=== PATIENT | female | born 1965 | race Caucasian/White ===

== ENCOUNTER 2020-02-05 09:14 | Emergency (ER) | payer OTHER, SELFPAY ==
[2020-02-05 09:15] VITALS: BP 133/53; PULSE 76; RESP 17; TEMP 36.5; O2SAT 98; BMI 27.3
--- NOTE | 2020-02-05 09:39 | CT_ITS ---
STUDY: CT ABDOMEN AND PELVIS WITH CONTRAST REASON FOR EXAM: Female, 54 years old. RT SIDE ABDOMEN PAIN, HX APPENDECTOMY RADIATION DOSAGE (If Supplied By Facility): CTDIvol = ( 12.61 ) mGy, DLP = ( 780.43 ) mGycm TECHNIQUE: Transaxial images were obtained from the dome of the diaphragm to the symphysis pubis without oral contrast. IV 100mL Isovue-300 was administered. Sagittal and coronal images were reconstructed. Individualized dose optimization techniques were used for this CT. COMPARISON: None. FINDINGS: The visualized lung bases are unremarkable. The visualized portions of the heart are within normal limits. Liver is unremarkable aside from scattered simple cysts. Normal gallbladder and extrahepatic biliary system. Normal spleen. Normal pancreas. Normal bilateral adrenal glands. There is a horseshoe kidney. Each half of the kidney shows nonobstructing nephrolithiasis largest on the right measures 3 mm, largest on the left measures 2 mm. The renal pelves are dilated as are both ureters along their course but there is no obstructing stone stricture or mass lesion noted. Normal visualized stomach. Normal small intestine. There are a few scattered colonic diverticula without CT evidence of acute diverticulitis. There are surgical clips in the region of the appendix consistent with a prior appendectomy. Normal abdominal aorta. Normal inferior vena cava. Normal retroperitoneum. Normal urinary bladder. Normal visualized uterus. No suspicious adnexal mass or free fluid Normal abdominal wall. There are diffuse degenerative changes of the visualized lumbar spine, and pelvis. CT/Abdomen/Pelvis W IV Cont ONLY IMPRESSION: There is a horseshoe kidney. There are nonobstructing stones in the lower poles of each half of the kidney. The UPJs and ureters are mildly dilated but there is no obstructing stone stricture or mass lesion noted. Normal appearing bladder No suspicious solid organ abnormality, scattered simple hepatic cysts need no specific follow-up Scattered colonic diverticulosis Uterus is still present, the endometrium cannot be accurately evaluated with CT Electronically Signed: Kenneth Nash MD at 10:41 EDT , Service support ,
--- NOTE | 2020-02-05 09:42 | ED.DCSUM_ITS ---
History of Present Illness Chief Complaint: Abd Pain Informant: Patient - Abdominal Pain/Flank Pain Context: Gradual Onset Timing: Continuous Quality: Sharp Location: RUQ, Right Flank Worsened by: Movement Relieved by: Nothing - Nausea/Vomiting/Emesis GI Symptom: Nausea Onset: Today - Diarrhea/Melena/Hematochezia GI Symptom: - - 4 BM today, formed. Negative for: Diarrhea, Melena, Hematochezia Onset: Today Associated Symptoms: Negative for: Dysuria, Frequency, Hematuria, Urgency Narrative: Patient is a 54-year-old female with remote history of appendectomy and ovarian cyst presenting with right-sided abdominal pain. Patient states a month ago she had 1 day of epigastric abdominal pain that seem to radiate down to her abdomen. On Wednesday, 2 days ago she states the same pain returned. She states that she has had decreased appetite because nothing tastes good. The pain was intermittent for the last 2 days but then starting last night it became constant. She describes as very sharp. It is in her right upper quadrant area and seems to radiate down. She states when she was driving here the pain was much worse when she hit bumps on the road or when she tries to move. She developed nausea this morning but no vomiting. She is not having diarrhea or constipation. She denies any fever or chills. She does not take any medications [id number] for her symptoms. Patient recent injuries or trauma. Her only medications are vitamins and counter weight loss supplements. Patient denies any associated chest pain, shortness of breath or difficulty breathing. She denies any urinary or vaginal symptoms. No other complaints at this time. Past Medical History - Allergies and Home Meds Allergies/Adverse Reactions: Allergies No Known Allergies Allergy (Verified 02/05/20 09:14) Primary Care Physician: Jeri Ann MD [Primary Care Provider] - Alea Garcia MD [STAFF PHYSICIAN] - Past Medical History: - - Ovarian cyst, history of depression Surgical History: appendectomy Lives: Spouse/ Significant Other Smoking Status: Former smoker Alcohol: None Drugs: None Review of Systems General: Denies: Chills, Fever, Sweats Eyes: Denies: Visual changes - bilaterally, Diplopia ENT: Denies: Rhinorrhea, Sore throat Cardiovascular: Denies: Chest pain, Palpitations Respiratory: Denies: Dyspnea, Cough, Dyspnea on exertion Gastrointestinal: Reports: Abdominal pain, Nausea. Denies: Vomiting, Diarrhea, Melena, Hematochezia Genitourinary: Denies: Dysuria, Hematuria, Frequency Musculoskeletal: Denies: Back pain, Extremity Pain Skin: Denies: Rash, Wounds Neurological: Denies: Headache, Weakness, Numbness Physical Exam Vital Signs/Narrative: Vital Signs Temp Pulse Resp BP Pulse Ox 02/05/20 09:15 97.7 F L 76 17 133/53 H 98 Inital Vital Signs reviewed: Yes General: Well nourished, Well developed, No Acute Distress, - - Tearful Head: Normocephalic, Atraumatic Eyes: Perrl, EOMI ENT: Moist mucous membranes, No rhinorrhea Neck: Supple, Nontender, No JVD Cardiovascular: Regular rate, Regular rhythm, No murmurs Respiratory: No distress, CTA bilaterally, Chest nontender Abdomen: Soft, Nondistended, Normal bowel sounds, Tender - Tenderness in the right upper quadrant and right lower quadrant with palpation, Gonzales's sign. Negative for: Guarding, Rebound tenderness, Pulsatile mass, Ventral hernia, Umbilical hernia Back: Nontender, Normal Inspection. Negative for: CVA tenderness Extremities: Nontender, No edema Skin: Normal color, No rash Neurological: Alert, Oriented x3, Cranial nerves II-XII grossly intact, Normal Strength, Normal Sensation Psychological: Normal affect, Normal Mood Diagnostic/Tx/Re-eval Clinical Impression(s) from Imaging Studies Abdomen/Pelvis CT 02/05/20 09:39 IMPRESSION: There is a horseshoe kidney. There are nonobstructing stones in the lower poles of each half of the kidney. The UPJs and ureters are mildly dilated but there is no obstructing stone stricture or mass lesion noted. Normal appearing bladder No suspicious solid organ abnormality, scattered simple hepatic cysts need no specific follow-up Scattered colonic diverticulosis Uterus is still present, the endometrium cannot be accurately evaluated with CT Electronically Signed: Kenneth Nash MD at 10:41 EDT , Service support , Transvaginal US 02/05/20 11:20 IMPRESSION: No suspicious sonographic findings, neither ovary visualized due to bowel gas. Electronically Signed: Kenneth Nash MD at 13:36 EDT , Service support , Laboratory Data 02/05/20 02/05/20 02/05/20 09:27 09:27 09:55 WBC 6.1 RBC 4.81 Hgb 14.4 Hct 43.2 MCV 89.8 MCH 29.9 MCHC 33.3 RDW Std Deviation 39.5 RDW Coeff of Marc 11.9 Plt Count 218 MPV 10.2 Immature Gran % (Auto) 0.300 Neut % (Auto) 65.4 Lymph % (Auto) 23.8 [place] % (Auto) 8.2 Eos % (Auto) 1.3 Baso % (Auto) 1.0 Absolute Neuts (auto) 4.0 Absolute Lymphs (auto) 1.45 Nucleated RBC % 0 Sodium 140 Potassium 3.9 Chloride 105 Carbon Dioxide 29.0 Anion Gap 6 BUN 14 Creatinine 0.98 Estim Creat Clear Calc 65.30 Est GFR (MDRD) Af Amer 76 Est GFR (MDRD) Non-Af 63 BUN/Creatinine Ratio 14.2 Glucose 99 Lactic Acid 1.3 Calcium 9.2 Total Bilirubin 0.70 AST 15 ALT 22 Alkaline Phosphatase 102 Troponin I < 0.015 Total Protein 7.7 Albumin 4.2 Globulin 3.5 Albumin/Globulin Ratio 1.2 Lipase 180 Urine Color Urine Clarity Urine pH Ur Specific [place] Urine Protein Urine Glucose (UA) Urine Ketones Urine Occult Blood Urine Nitrite Urine Bilirubin Urine Urobilinogen Ur Leukocyte Esterase Urine RBC Urine WBC Ur Squamous Epith Cells Urine Bacteria Urine Mucus Urine Test 02/05/20 02/05/20 10:30 10:30 WBC RBC Hgb Hct MCV MCH MCHC RDW Std Deviation RDW Coeff of Marc Plt Count MPV Immature Gran % (Auto) Neut % (Auto) Lymph % (Auto) [place] % (Auto) Eos % (Auto) Baso % (Auto) Absolute Neuts (auto) Absolute Lymphs (auto) Nucleated RBC % Sodium Potassium Chloride Carbon Dioxide Anion Gap BUN Creatinine Estim Creat Clear Calc Est GFR (MDRD) Af Amer Est GFR (MDRD) Non-Af BUN/Creatinine Ratio Glucose Lactic Acid Calcium Total Bilirubin AST ALT Alkaline Phosphatase Troponin I Total Protein Albumin Globulin Albumin/Globulin Ratio Lipase Urine Color Yellow Urine Clarity Sl. Cloudy Urine pH 6.5 Ur Specific [place] 1.010 Urine Protein Negative Urine Glucose (UA) Normal Urine Ketones Negative Urine Occult Blood Negative Urine Nitrite Negative Urine Bilirubin Negative Urine Urobilinogen Normal Ur Leukocyte Esterase Negative Urine RBC 0 SEEN Urine WBC 0 SEEN Ur Squamous Epith Cells 5-10 SEEN Urine Bacteria RARE Urine Mucus 0 SEEN Urine Test Negative - Medical Decision Making Patient is a 54-year-old female presenting with 3 days of right-sided abdominal pain. Pain is worse with movement. She has associated nausea but no diarrhea or vomiting. Patient did have more frequent bowel movements today but states they were otherwise normal. She has similar episode 1 month ago but only lasted for day so she does not have it evaluated. Patient is not tried any medications for her pain prior to arrival. Her abdomen is significantly tender on the right side but diffusely. She has pain in her right lower quadrant as well as has a Gonzales sign. I did obtain a lactate because of the amount of tenderness she was having but this was normal. Her CBC and CMP as well as lipase were also normal. No signs of infection on urinalysis. CT the abdomen pelvis did not show any acute intra-abdominal pathology to explain her pain. She was also having lower abdominal pain I did also obtain pelvic ultrasound which did not show any acute pathology. Patient had 2 doses of morphine and a dose of Toradol for pain control in the emergency room. She is hemodynamically stable throughout her stay. On reevaluation patient is feeling better but is concerned as a cause of her pain has not been found. Patient will refer to surgery for outpatient follow-up because of her pain. She is counseled that should her pain worsen or change she should return to the emergency room for repeat evaluation. She verbalizes agreement understand this plan. She is discharged home with a course of Motrin. Patient is counseled that she will not receive opioids as I do not have a clear cause of her pain at discharge. She verbalizes agreement underst and this plan. She is given a work note for today and tomorrow per her request. ED Disposition - Plan for ED Patient: Disposition: Home or Assisted Living Diagnosis: Abdominal pain Instructions: ED Abdominal Pain Unkn Cause Fem Prescriptions: Ibuprofen [Motrin] 600 mg PO Q6H PRN PRN #20 tab PRN Reason: Pain Score 1-10/10 Prescription Printed Referrals: Jeri Ann MD [Primary Care Provider] - Alea Garcia MD [STAFF PHYSICIAN] -
[2020-02-05 09:46] LABS: Absolute Lymphocyte Count 1.45 X10^3/uL (0.83-4.51); Basophil# 0.06 X10^3/uL; Eosinophil# 0.08 X10^3/uL; Eosinophils% 1.3 % (0-5); Hematocrit 43.2 % (37-47); Hemoglobin 14.4 g/dL (12.0-15.0); Lymphocyte # 1.45 X10^3/ul (4.0); Lymphocyte % 23.8 % (19-41); Mean Corp Hgb Conc 33.3 g/dL (32-36); Mean Corpuscular Hgb 29.9 pg (27.0-32.0); Mean Corpuscular Volume 89.8 fL (81-99); Mean Platelet Vol. 10.2 fl (6.2-12.0); Monocyte% 8.2 % (0-10); NRBC Flagged by Analyzer 0 % (0-5); Neutrophil # 3.98 X10^3/uL (2.7-7.7); Neutrophil % 65.4 % (47-70); Platelet Count 218 K/mm3 (150-450); RBC Distribution Width CV 11.9 % (11.6-14.6); RBC Distribution Width SD 39.5 fl (35.1-43.9); Red Blood Count 4.81 M/mm3 (4.2-5.4); White Blood Count 6.1 K/mm3 (4.4-11.0)
[2020-02-05] MEDS: Ondansetron 4 MG/2 ML Vial IV (09:58)
[2020-02-05] MEDS: Morphine 4 MG/ML Syringe IV ×2 (09:59→11:49)
[2020-02-05] MEDS: 0.9% Normal Saline 1,000 ML 1000 ML IV (09:59)
[2020-02-05 10:02] LABS: ALB/GLOB Ratio 1.2 RATIO (0.9-2.4); AST(SGOT) 15 U/L (15-37); Alanine Aminotransfer ALT/SGPT 22 U/L (13-56); Albumin, Serum 4.2 g/dL (3.2-5.0); Alkaline Phosphatase 102 U/L (45-117); Anion Gap 6 (5-15); BUN 14 mg/dL (7-18); BUN/Creat Ratio 14.2 RATIO (10-20); Calcium,Total 9.2 mg/dL (8.5-10.1); Chloride 105 mmol/L (98-107); Creatinine, Serum 0.98 mg/dL (0.55-1.02); EST Glomerular Filtration Rate 63 mL/min (>60); Est Glom Filt Rate - Afr Amer 76 mL/min (>60); Globulin 3.5 g/dL (2.2-4.2); Glucose 99 mg/dL (74-106); Lipase 180 U/L (73-393); Potassium 3.9 mmol/L (3.5-5.1); Protein, Total 7.7 g/dL (6.4-8.2); Sodium Level 140 mmol/L (136-145)
[2020-02-05 10:42] LABS: Mucous, Urine 0 SEEN /hpf (<or=2+); Red Blood Cells-Urine 0 SEEN /hpf (0-5); White Blood Cells 0 SEEN /hpf (0-5)
[2020-02-05 10:43] LABS: Color, Urine Yellow (Yellow); Glucose, Dipstick Normal (Normal); Ketone-Dipstick Negative (Negative); Leukocyte Esterase-Dipstick Negative /ul (Negative); Nitrite-Dipstick Negative (Negative); Occult Blood-Urine Negative /ul (Negative); Protein-Dipstick Negative (Negative); Urine Bilirubin Dipstick Negative (Negative); Urine Clarity Sl. Cloudy (Clear); Urine Urobilinogen Normal (Normal); Urine pH 6.5 (5.0 - 8.0)
[2020-02-05 10:44] LABS: Internal QC Validated? YES +Cl - CLEAR BKGD; Pregnancy, Urine Negative Negative
[2020-02-05] MEDS: Ketorolac 15 MG/ML Vial IV (10:46)
[2020-02-05 10:52] LABS: Bacteria RARE /hpf (None Seen); Squamous Epithelial Cells - UA 5-10 SEEN /hpf (5-10)
[2020-02-05 10:57] LABS: Lactic Acid 1.3 mmol/L (0.4-1.9)
--- NOTE | 2020-02-05 11:20 | US_ITS ---
STUDY: ULTRASOUND OF THE FEMALE PELVIS - COMPLETE REASON FOR EXAM: Female, 54 years old. RLQ PAIN LMP: Unknown. TECHNIQUE: Transabdominal and Transvaginal TECHNICAL QUALITY: Adequate. COMPARISON: None. FINDINGS: The uterus is anteverted and is in a midline position. The uterus measures 8.8 x 5.2 x 3.9 cm. Normal uterine cervix. The endometrium measures 4 mm in thickness, and is hyperechoic. There is no demonstrated endometrial mass. There is no demonstrated myometrial mass. I.U.D. - The patient does not have an I.U.D. Neither ovary visualized. There is no fluid in the cul-de-sac. The bladder is sonographically normal US/Transvaginal Non- IMPRESSION: No suspicious sonographic findings, neither ovary visualized due to bowel gas. Electronically Signed: Kenneth Nash MD at 13:36 EDT , Service support ,
[2020-02-05 12:22] VITALS: BP 128/72; PULSE 73; RESP 16; O2SAT 100
[2020-02-05 14:29] VITALS: BP 119/75; PULSE 56; RESP 18; O2SAT 100
== END 2020-02-05 14:30 | disposition home or self-care (01) ==
PROVIDERS: Emergency Provider Emergency Medicine; PCP Internal Medicine
DX: R10.11 Right upper quadrant pain (principal); R11.0 Nausea; Z79.899 Other long term (current) drug therapy; Z87.891 Personal history of nicotine dependence
CPT/HCPCS: 74177; 76830; 80053; 81001; 81025; 83605; 83690; 84484; 85025; 96361; 96374; 96375; 96376; 99284; J7030; Q9967; A4216; J2405

== ENCOUNTER 2023-02-15 14:48 | Emergency (ER) | payer BC, OTHER, SELFPAY ==
[2023-02-15 14:49] VITALS: BP 124/65; PULSE 64; RESP 16; TEMP 36.1; O2SAT 100; BMI 27.1
--- NOTE | 2023-02-15 14:59 | EX.ED.DYSGE1 ---
HPI History of Present Illness Chief Complaint: Headache PFSH PFSH Home Medications ibuprofen 600 mg tablet 600 mg PO Q6H PRN PRN Pain Score 1-10/10 #20 tabs 02/05/20 [Rx Last Taken Unknown] doxycycline hyclate 100 mg capsule 100 mg PO BID 7 days #14 caps 02/15/23 [Rx Last Taken Unknown] metoclopramide HCl 5 mg tablet (Reglan) 5 mg PO Q8H PRN PRN nausea and vomiting 7 days #20 tabs 02/15/23 [Rx Last Taken Unknown] Allergy/AdvReac Type Severity Reaction Status Date / Time No Known Allergies Allergy Verified 02/05/20 09:14 Social History Smoking Status: Former smoker EXAM Physical Exam Const Vital Signs: 02/15/23 14:49 Temperature 97.0 F L Temperature Source Temporal Pulse Rate 64 Respiratory Rate 16 Blood Pressure 124/65 H Blood Pressure Mean 84 Pulse Ox 100 Oxygen Delivery Method Room Air MDM MDM MDM Narrative Medical decision making narrative: HISTORY OF PRESENT ILLNESS: 57-year-old female here with cute onset of headache approximately 6 hours ago. States headache began suddenly is located around forehead denies any recent illness. Denies family history of brain aneurysms. Denies any focal weakness. Denies any neck pain or chest pain. Patient denies sudden onset or thunderclap headache, denies maximal intensity within 1 minute, vomiting, neck pain or stiffness, changes in vision, fever, history malignancy, syncope, seizures. In addition to this patient also endorses redness over the left lower extremity that started as multiple excoriations and now has been a confluent area redness to the left lower leg. She also states he is concerned about Lyme disease. REVIEW OF SYSTEMS: Pertinent positives: Headache Pertinent negatives: Focal weakness, loss sensation, numbness, tingling, neck stiffness PHYSICAL EXAM: Nursing triage notes reviewed, Vital signs reviewed Constitutional: please see mdm HENT: MMM Eyes: Pupils equal round and reactive to light, Extraocular muscles intact Neck: No stridor, no JVD, full neck ROM Lungs: Clear to auscultation, No wheezing or rales. No increased work of breathing, no conversational dyspnea, no accessory muscle use, no nasal flaring. No respiratory distress noted Heart: Regular rate and rhythm, No murmurs, No rubs and No gallops, 2+ distal pulses (radial, femoral, posterior tibial) in all extremities Abdomen: Soft, there is no tenderness, rigidity, rebound or guarding, no obvious peritoneal signs, no palpable pulsatile abdominal masses, no auscultated abdominal bruit : No CVAT Extremities: No edema Neuro: Alert and oriented x3, neuro exam at baseline, cranial nerves II through XII are intact. No pain with extraocular muscle movement. There is negative test of skew. Normal speech. 5 of 5 strength in upper and lower extremities in flexion extension. Intact sensation to light touch in upper and lower extremity dermatomes. No truncal or extremity ataxia. No dysdiadochokinesia. Normal gait. 2+ reflexes. No meningeal signs. Negative Babinski. NIH of 0 Skin: There is nonspecific confluent erythema on the left anterior tibia, no crepitus bullae fluctuance induration or purulence noted MEDICAL DECISION MAKING: Chief Complaint: Headache External records reviewed: No recent advanced imaging of the brain Factors affecting care: none Social determinants of health: none History obtained from others: none Consults: none ALL IMAGES (IF OBTAINED) HAVE BEEN PERSONALLY REVIEWED AND INTERPRETED BY MYSELF. MDM Narrative: The patient was hemodynamically stable, afebrile and nontoxic-appearing. Exam I considered the following differential diagnosis: Subarachnoid hemorrhage, epidural hematoma, ICH, meningitis, carotid artery dissection, primary headache (cluster, tension, migraine) I suspect patient having a primary headache. Given her age I will do a screening CT of the brain to rule out any obvious bleeding or mass. CT scan was negative. Repeat neurologic exam was intact and benign. Patient was given doxycycline for empiric cellulitis treatment. She is given 20 mg single dose for Lyme prophylaxis given patient concerned specifically about Lyme disease. The patient looks great and is in no significant objective discomfort currently. The patient's headache is non-specific. Exam is unremarkable. The patient is in no distress and the patient?s neurological exam is non-focal, neck is supple and without meningismus. The headache is not consistent with meningitis or infection, nor is it consistent with intracranial bleed (SAH etc.), carotid dissection, nor mass by history and examination. Medication and outpatient follow-up was instructed. The patient was instructed to return as needed or if symptoms changed or worsened, fever developed or inability to tolerate fluids. The patient agreed with plan. The patient and/or family, caregivers express understanding. The patient and/or family, caregivers agrees with the plan. Total critical care time today provided was at least 0 minutes. This excludes separately billable procedures. Critical care time (if documented) is secondary to the patient having high probability of clinically significant/life threatening deterioration in the patient's condition which required my urgent intervention. Shared decision making: I will have a discussion with the patient and or visitors regarding risk/benefits of further testing or admission. They will be made aware of of the risk/benefits inherent in this decision they will be given the opportunity to voice understanding. Radiography Diagnostic Testing: Clinical Impression(s) from Imaging Studies Brain CT 02/15/23 15:11 IMPRESSION: Negative head/brain CT without intravenous contrast. Electronically Signed: Otto Shepard MD at 16:19 EDT Reading Location ID and State: [facility] / [place] , Service support , Discharge Plan Triage Chief Complaint: Headache ED Provider: Derrick Vazquez Dx/Rx/DC Orders Clinical Impression: Cellulitis, Headache Instructions: Cellulitis Dc, ED Headache Unspecified Prescriptions: New doxycycline hyclate 100 mg capsule 100 mg PO BID 7 Days Qty: 14 0RF metoclopramide HCl [Reglan] 5 mg tablet 5 mg PO Q8H PRN PRN (Reason: nausea and vomiting) 7 Days Qty: 20 0RF No Action ibuprofen 600 MG tablet 600 mg PO Q6H PRN PRN (Reason: Pain Score 1-10/10) Qty: 20 0RF Stand Alone Forms: ED Work / School Excuse Primary Care Provider: Jeri Ann Referrals: Jeri Ann MD [Primary Care Provider] - Activity Restrictions/Additional Instructions: Thank you for trusting us with your care today! Please take Tylenol (2 pills, 650 mg), ibuprofen (2 pills, 400 mg) every 6 hours as needed for pain and fever control. Please take doxycycline for infection prophylaxis. We gave you a 200 mg one-time prophylactic dose of doxycycline here in emergency department which is also the CDC recommended coverage for Lyme disease empiric treatment. Please continue take doxycycline as prescribed Please return to the emergency department if your symptoms change or worsen. Specifically if your headache worsens, it caused you to pass out, you lose vision, you have loss of sensation, loss of movement in your arms or legs or if you develop severe neck stiffness. Please take Reglan as prescribed for breakthrough headache and nausea. Please follow with your primary care physician for further outpatient evaluation and management. Disposition Disposition: Home, Self Care Discharge Date/Time: 02/15/23 16:42
--- NOTE | 2023-02-15 15:11 | CT_ITS ---
EXAM: CT HEAD WITHOUT INTRAVENOUS CONTRAST CLINICAL INDICATION: Pain TECHNIQUE: Multiple axial images were obtained of the head without intravenous contrast. This CT exam was performed using one or more of the following dose reduction techniques: automated exposure control, adjustment of the mA and/or kV according to patient size, and/or use of iterative reconstruction technique. RADIATION DOSE: CTDIvol = 44.99 mGy, DLP = 796.11 mGy-cm COMPARISON: No relevant prior studies available. FINDINGS: BRAIN AND EXTRA-AXIAL SPACES: Unremarkable. No intra- or extra-axial hemorrhage. No evidence of acute infarct. No intracranial mass or mass effect. There is preservation of the paris/white matter interface. Posterior fossa structures are unremarkable. Ventricles are appropriate for age. No hydrocephalus. Basal cisterns are patent. BONES/JOINTS: Unremarkable. No discrete lytic or blastic abnormalities. SINUSES: Unremarkable as visualized. Clear. MASTOID AIR CELLS: Unremarkable. Clear. ORBITS: Visualized globes, extraocular muscles, optic nerves and retrobulbar fat appear unremarkable. CT/Brain/Head without Contrast IMPRESSION: Negative head/brain CT without intravenous contrast. Electronically Signed: Otto Shepard MD at 16:19 EDT ,
[2023-02-15] MEDS: 0.9% Normal Saline 1,000 ML 999 ML IV (15:32)
[2023-02-15] MEDS: Acetaminophen 325 MG Tablet PO (15:32)
[2023-02-15] MEDS: Metoclopramide 10 MG/2 ML Vial 5 MG IV (15:32)
[2023-02-15] MEDS: Doxycycline 100 MG CAPSULE 200 MG PO (16:17)
== END 2023-02-15 16:42 | disposition home or self-care (01) ==
PROVIDERS: Emergency Provider Emergency Medicine; PCP Internal Medicine; Visit Provider Emergency Medicine
DX: R51.9 Headache, unspecified (principal); L03.116 Cellulitis of left lower limb; Z87.891 Personal history of nicotine dependence
CPT/HCPCS: 70450; 96361; 96374; 99281; J7030; A4216

== ENCOUNTER → 2024-10-04 | Outpatient (CLI) | payer OTHER, SELFPAY ==
--- NOTE | 2024-10-04 13:04 | NM_ITS ---
PROCEDURE: GASTRIC EMPTYING STUDY REASON FOR EXAM: Abdominal bloating. TECHNIQUE: RADIOPHARMACEUTICAL: 1.1 millicuries of technetium labeled sulfur colloid mixed with oatmeal. The patient ingested the radiopharmaceutical. COMPARISON: CORRELATION WITH EXISTING RELEVANT IMAGING STUDIES (i.e. x-ray, MRI, CT, etc.): No existing relevant imaging study available , patient did not have a previous relevant imaging study. FINDINGS: Normal gastric emptying. The combination of the radiopharmaceutical and oatmeal exited the stomach in 34 minutes. NM/Gastric Emptying Study IMPRESSION: Normal gastric emptying. Reading Location: [id number]
== END | disposition home or self-care (01) ==
LOC: NM 13:04
PROVIDERS: PCP Internal Medicine; Referring Provider Student in an Organized Health Care Education/Training Program; Visit Provider Student in an Organized Health Care Education/Training Program
DX: R14.0 Abdominal distension (gaseous) (principal)
CPT/HCPCS: 78264; A9541

== ENCOUNTER → 2024-11-09 | Outpatient (CLI) | payer OTHER, SELFPAY ==
[2024-11-09 07:09] LABS: Absolute Lymphocyte Count 1.89 X10^3/uL (0.83-4.51); Absolute Neutrophil Count 3.1 X10^3/uL (2.0-7.7); Basophil# 0.07 X10^3/uL; Basophil% 1.2 % (0-1); Eosinophil# 0.14 X10^3/uL; Eosinophils% 2.5 % (0-5); Hematocrit 41.8 % (37-47); Hemoglobin 13.9 g/dL (12.0-15.0); Lymphocyte # 1.89 X10^3/ul (0.83-4.51); Lymphocyte % 33.5 % (19-41); Mean Corp Hgb Conc 33.3 g/dL (32-36); Mean Corpuscular Hgb 30.5 pg (27.0-32.0); Mean Corpuscular Volume 91.9 fL (81-99); Monocyte# 0.43 X10^3/uL; Monocyte% 7.6 % (0-10); NRBC Flagged by Analyzer 0 % (0-5); Platelet Count 242 K/mm3 (150-450); RBC Distribution Width CV 12.1 % (11.6-14.6); RBC Distribution Width SD 40.3 fl (35.1-43.9); Red Blood Count 4.55 M/mm3 (4.2-5.4); White Blood Count 5.6 K/mm3 (4.4-11.0)
[2024-11-09 07:41] LABS: Cholesterol 223 mg/dL (<=200); High Density Lipoprotein 63 mg/dL; Low Density Lipoprotein Calc. 132 mg/dL; Triglycerides 143 mg/dL; Very Low Density Lipoprotein 29 mg/dL (5-40); cholesterol:hdl ratio screen 3.55
[2024-11-09 07:52] LABS: ALB/GLOB Ratio 1.7 RATIO (0.9-2.4); AST(SGOT) 20 U/L (<=31); Alanine Aminotransfer ALT/SGPT 14 U/L (<=34); Albumin, Serum 4.4 g/dL (3.5-5.0); Alkaline Phosphatase 92 U/L (35-104); Anion Gap 11 (5-15); BUN 16 mg/dL (4-19); BUN/Creat Ratio 14.8 RATIO (10-20); Calcium,Total 9.5 mg/dL (7.6-11.0); Carbon Dioxide 23.7 mmol/L (21.0-32.0); Chloride 106 mmol/L (98-108); Creatinine, Serum 1.05 mg/dL (0.70-1.20); EST Glomerular Filtration Rate 62 (>60); Globulin 2.7 g/dL (2.2-4.2); Glucose 104 mg/dL (70-99); Potassium 4.5 mmol/L (3.3-5.1); Protein, Total 7.1 g/dL (5.9-8.4); Sodium Level 140 mmol/L (133-145); Total Bilirubin 0.35 mg/dL (0.00-1.30)
[2024-11-10 18:25] LABS: Hemoglobin A1c 5.6 % (<=5.6)
[2024-11-13 12:08] LABS: HPV APTIMA, High Risk Negative (Negative)
== END | disposition home or self-care (01) ==
LOC: LAB 06:42
PROVIDERS: Nurse Practitioner Family; PCP Internal Medicine; Referring Provider Internal Medicine; Visit Provider Internal Medicine
DX: K59.09 Other constipation (principal); R73.9 Hyperglycemia, unspecified; Z12.4 Encounter for screening for malignant neoplasm of cervix; E78.5 Hyperlipidemia, unspecified
CPT/HCPCS: 36415; 80053; 80061; 83036; 84439; 84443; 85025; 87624; 88175; G0145

== ENCOUNTER → 2024-11-13 | Outpatient (CLI) | payer OTHER, SELFPAY ==
--- NOTE | 2024-11-13 17:56 | US_ITS ---
PROCEDURE: PELVIC W/ TRANSVAGINAL REASON FOR EXAM: PMB TECHNIQUE: Transabdominal and transvaginal pelvic ultrasound COMPARISON: Prior study dated February 05, 2020. FINDINGS: Measurements: Uterus: 9.1 cm x 5.3 cm x 2.8 cm with a volume of 72.14 mL Endometrial Thickness: 4 mm. This is slightly thickened. Right Ovary: Nonvisualized. Left Ovary: Nonvisualized. TRANSABDOMINAL: Uterus: Normal size, myometrial echotexture, and contour. Endometrium: It measures 4 mm. Slightly thickened for patient's age. Right ovary: Not visualized. Left ovary: Not visualized. Transvaginal sonography was performed to better visualize the endometrium. TRANSVAGINAL: Uterus: Unremarkable. Endometrium: Slightly thickened endometrium. Right ovary: Not visualized. Left ovary: Not visualized. Other adnexal findings: None. Cul-de-sac: No free intraperitoneal fluid identified. US/Pelvic w/ Transvaginal IMPRESSION: Mild thickening of the endometrium at 4 mm. The ovaries were not visualized. Reading Location: [id number]
== END | disposition home or self-care (01) ==
LOC: US 17:56
PROVIDERS: PCP Internal Medicine; Visit Provider Nurse Practitioner Family
DX: N95.0 Postmenopausal bleeding (principal)
CPT/HCPCS: 76830; 76856

== ENCOUNTER → 2024-11-23 | Outpatient (CLI) | payer OTHER, SELFPAY ==
--- NOTE | 2024-11-23 15:17 | EMB_PTH ---
PATIENT: POLINA THOMSON LOC: [facility] U#:[id number] AGE/SX: 59/F ROOM: RE11/23/[address]: NIKOLE Pereira : 1965 BED: DIS: 11/23/2024 SPEC #: [id number] RECD: 11/23/24 16:25 STATUS: AKIN REHardy #: [id number] FAITH: 11/23/24 15:[address]: Sharon Whiting NP DEPT: SURGICAL PATHOLOGY RECD BY: Tian Roland ENTERED: 11/24/24 07:02 SP TYPE: ENDOM BX/C AMNA DR: Dr. Willie Adams MD Tissues: A - Endometrium, NOS Procedures: Surgery Specimen Level IV HEADER OPERATION: Endometrial biopsy PRE-OP DIAGNOSIS: Postmenopausal bleeding TISSUE SUBMITTED: A- Endometrial lining MICROSCOPIC DIAGNOSIS A. Uterus, endometrial lining, biopsy: * Cystic atrophy. MICROSCOPIC DESCRIPTION Slides are reviewed. GROSS DESCRIPTION A. Received in formalin in a container labeled with the patient's name, date of , and with no further designation are multiple red-calles fragments of soft tissue admixed with blood and mucus measuring 2.0 x 1.0 x 0.2 cm in aggregate. Submitted in toto in A1. B 12/01/2024 CPT:03500
== END | disposition home or self-care (01) ==
LOC: LABSPEC 15:56
PROVIDERS: PCP Internal Medicine; Referring Provider Nurse Practitioner Women's Health; Visit Provider Nurse Practitioner Women's Health
DX: N95.0 Postmenopausal bleeding (principal)
CPT/HCPCS: 88305

== ENCOUNTER 2024-11-29 05:22 | Day surgery (SDC) | payer OTHER, SELFPAY ==
[2024-11-29 05:40] VITALS: BP 142/65; PULSE 56; RESP 16; TEMP 37.3; O2SAT 95; BMI 31.1
--- NOTE | 2024-11-29 06:30 | EGD_PTH ---
PATIENT: POLINA THOMSON LOC: EN U#:[id number] AGE/SX: 59/F ROOM: RE11/29/[address]: Dr. Adria Cisse DO : 1965 BED: DIS: 11/29/2024 SPEC #: [id number] RECD: 11/29/24 09:44 STATUS: AKIN REHardy #: [id number] FAITH: 11/29/24 06:[address]: Adria Cisse DEPT: SURGICAL PATHOLOGY RECD BY: Tian Roland ENTERED: 11/29/24 10:16 SP TYPE: EGD BIOPSY AMNA DR: Dr. Willie Adams MD Tissues: A - Duodenum, NOS Procedures: Surgery Specimen Level IV HEADER OPERATION: EGD with biopsy PRE-OP DIAGNOSIS: Gastroesophageal reflux disease TISSUE SUBMITTED: A- Duodenum biopsy MICROSCOPIC DIAGNOSIS A. Small bowel, duodenum, biopsy: * Normal villous architecture with Pravin gland hyperplasia and gastric mucin cell metaplasia, suggestive of peptic injury. * Negative for increased intraepithelial lymphocytes. MICROSCOPIC DESCRIPTION Slides are reviewed. GROSS DESCRIPTION A. Received in formalin in a container labeled with the patient's name, date of , and duodenum biopsy are multiple calles-pink fragments of mucosal tissue measuring 0.8 x 0.6 x 0.2 cm in aggregate. Submitted in toto in A1. [facility] 11/29/2024 CPT:62735
[2024-11-29 06:38] VITALS: BP 142/65; PULSE 56; RESP 16; TEMP 37.3; O2SAT 95
--- NOTE | 2024-11-29 06:38 | PCM.PRE.AN2 ---
ASA Classification* ASA Classification ASA Classification: 2 Assessment & Plan Anesthesia* Anesthesia Assessment Anesthesia Assessment: Discussed sedation and/or anesthesia options, risks, benefits, and alternatives with patient/parents/legal guardian/POA. Questions invited. The patient/parents/legal guardian/POA seems to understand and agrees to proceed with anesthesia plan. Reviewed the physical assessment, medical history, allergy history and patient home medications list prior to surgery/procedure/anesthetic and documented any changes. Performed airway and anesthesia risk assessments. Anesthesia Type Anesthesia Type: MAC Anesthesia Focused Assessment* Temperature: 99.2 F Pulse Rate: 56 Blood Pressure: 142/65 Respiratory Rate: 16 Pulse Ox: 95 Airway Assessment Mouth opens: >3 cm Mallampati Score: II Focused Labs Anesthesia Preop lab: CBC WBC 5.6 K/mm3 (4.4-11.0) 11/09/24 06:45 11/09/24 RBC 4.55 M/mm3 (4.2-5.4) 11/09/24 06:45 11/09/24 Hgb 13.9 g/dL (12.0-15.0) 11/09/24 06:45 11/09/24 Hct 41.8 % (37-47) 11/09/24 06:45 11/09/24 Plt Count 242 K/mm3 (150-450) 11/09/24 06:45 11/09/24 CHEMISTRY Potassium 4.5 mmol/L (3.3-5.1) 11/09/24 06:45 11/09/24 Sodium 140 mmol/L (133-145) 11/09/24 06:45 11/09/24 BUN 16 mg/dL (4-19) 11/09/24 06:45 11/09/24 Creatinine 1.05 mg/dL (0.70-1.20) 11/09/24 06:45 11/09/24 Glucose 104 mg/dL (70-99) H 11/09/24 06:45 11/09/24 TSH 3.490 uIU/mL (0.300-4.200) 11/09/24 06:45 11/09/24 COAG Urine Test Negative Negative 02/05/20 10:30 02/05/20 [facility] Negative 11/23/24 15:15 11/23/24 Pre-Assessment Diagnosis/Proposed Procedure Planned Operative Procedure(s): EGD Anesthesia History 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 When Was Last Pacemaker Check QUESTION #4 FULL TEXT: You/Your Family Experience fever (hyperthermia) with Anesthesia Last Oral Intake Last Oral intake: Last Oral Intake NPO since Meds taken in AM with sips of No 11/29/24 05:40 water? 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 Female Yes 11/24/24 13:43 HX of Motion Sickness Yes 11/24/24 13:43 HX of N/V After Surgery Yes 11/24/24 13:43 Non-Smoker Yes 11/24/24 13:43 Duration of Surgery greater No 11/24/24 13:43 than 60 minutes Number of Risk Factors 4 11/24/24 13:43 PONV Score Severe Risk 11/24/24 13:43 Height & Weight Height & Weight: Anesthesia: Height & Weight Height 5 ft 7 in 11/29/24 05:40 Weight: 90 kg 11/29/24 05:40 Body Mass Index (BMI) 31.1 11/29/24 05:40 Respiratory Assessment Respiratory Assessment - brickmason contractor: Respiratory Tract Infection Hx - brickmason contractor Hx Respiratory Tract Infection No 11/24/24 13:43 STOP Sleep Apnea STOP Sleep Apnea - brickmason contractor: STOP Sleep Apnea - brickmason contractor Hx Hypertension No 11/24/24 13:43 Hx Sleep Apnea No 11/24/24 13:43 CPAP BIPAP Do you snore loudly (louder Yes 11/24/24 13:43 than talking or can be heard Do you often feel tired/ No 11/24/24 13:43 fatigued/ sleepy during daytime? Has anyone observed you stop No 11/24/24 13:43 breathing during sleep? STOP Results Negative 11/24/24 13:43 QUESTION #5 FULL TEXT : Do you snore loudly (louder than talking or can be heard through closed doors)? 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 Specify any problems Hx of Preganancy in last 3 No 11/24/24 13:43 Months Nurse Filling Out Transfusion JZOLLINGE 11/24/24 13:43 & Questions: Date: 11/24/24 11/24/24 13:43 Time: 13:46 11/24/24 13:43 Patient unable to answer at this time (ie. confused, unrespo /Reproduction History /Reproductive History - brickmason contractor: /Reproductive Hx- brickmason contractor Hx Now No 11/24/24 13:43 Gestational Age (in weeks): EDC: Hx Hx Para Hx Section SAB No 11/24/24 13:43 [facility] Medical History Wears glasses Depression Anxiety Fatty liver Injury of head and neck Loss of consciousness Dietary restriction History of IBS Non-smoker Blood glucose elevated Hyperlipidemia Anxiety and depression Chronic constipation Greater trochanter fracture Palpitations with regular cardiac rhythm Vaginal delivery Horseshoe kidney Vision problems Skin cancer GERD (gastroesophageal reflux disease) Kidney stones IBS (irritable bowel syndrome) High cholesterol Hypertension Hearing problem Migraines Frequent headaches Gastrointestinal problem Emotional problems Chronic bronchitis Carpal tunnel syndrome Asthma Anemia Seasonal allergies Home Medications ?Medication ?Instructions ?Recorded ?Last Taken ?Type ibuprofen 600 mg tablet 600 mg PO Q6H PRN PRN Pain Score 02/05/20 Unknown Rx -05/25 #20 tabs mecobalamin (vitamin B12) 500 mcg mcg PO 09/08/24 11/27/24 History chewable tablet propranolol 60 mg capsule,24 60 mg PO QHS 09/08/24 11/28/24 History hr,extended release biycymjk-ifq-iuahr ac 400 tab PO 11/08/24 11/27/24 History mcg-calcium carb 500 mg-vit K1 20 mcg tablet (Women's 50 Plus Multivitamin) sennosides 8.6 mg capsule (senna) 8.6 mg PO QDAY PRN constipation 11/08/24 Unknown History vit C 180 mg-D3 10 mcg-zinc 5.5 cap PO 11/08/24 11/27/24 History yd-yheitg-bogcuuw-calvin-herb capsule (Immune Support (vit c, d and zinc)) sumatriptan succinate 25 mg tablet See Rx Instructions PO .COMPLEX 11/29/24 Unknown History (Imitrex) PRN migraine headache venlafaxine 75 mg capsule,extended 75 mg PO QHS 11/29/24 11/28/24 History release 24 hr Allergy/AdvReac Type Severity Reaction Status Date / Time perfume Allergy throat Verified 11/24/24 13:31 swelling Family History Mother Anxiety Depression Heart disease Mental disorder Severe allergy Pacemaker Father High cholesterol Cancer lung/lymphoma Aunt Arthritis Cancer lymphoma Stomach cancer maternal aunt Aunt Cancer Sister Depression Mental disorder Hypertension Brother Cancer lymphoma Depression Mental disorder Grandmother Heart disease Severe allergy Cancer in stomach Grandfather Suicide Surgical History H/O lithotripsy H/O prior ablation treatment History of appendectomy History of carpal tunnel surgery Social History adopted: No household members: spouse number of children: 3 current occupational status: employed 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 [employer] current occupational exposures/hazards: No pets and animals: No leisure activities: clubs, art, fishing, reading and volunteer work history of recent travel: No sexually active: Yes Smoking Status: Former smoker Tobacco: How many years used: 2 alcohol intake: current alcohol intake frequency: holidays/special occasions only Alcohol type: wine substance use type: does not use diet: lactose free and low salt well-balanced diet: rarely or never caffeine: Yes Type: carbonated beverages, coffee and tea eating out: other during the past year weight has: increased > 10 lbs what type of physical activity do you participate in: walking seatbelt use: always do you feel safe at home: Yes Review of Systems (Anesthesia) ROS Narrative System reviewed and no additional complaints, except as documented.
--- NOTE | 2024-11-29 06:45 | HP.PCM_ITS ---
HPI - General General Date of Admission: 11/29/24 Date of Service: 11/29/24 HPI Narrative POLINA THOMSON, is a 59 F who presents Chief Complaint: bloating Details: POLINA THOMSON, is a 59 F who presents to the office today for establishment with [facility]. Pt has had GI issues for many years. Over the past couple months she has had worsening symptoms with abd distention, early satiety, n/v, heartburn and constipation. She is not eating much but is gaining weight. She is gets full very quickly after she starts eating. She is having at least one episode of emesis weekly. She is taking senna daily for constipation and has been for about one year. She does not have a bm if she does not take it. Her bm are typically small and hard. Her last EGD and colonoscopy was in 2019 with normal findings. [facility], [facility] Medical History (Updated 11/29/24 @ 06:[address] Covington Friend, DO) Wears glasses Depression Anxiety Fatty liver Injury of head and neck Loss of consciousness Dietary restriction History of IBS Non-smoker Blood glucose elevated Hyperlipidemia Anxiety and depression Chronic constipation Greater trochanter fracture Palpitations with regular cardiac rhythm Vaginal delivery Horseshoe kidney Vision problems Skin cancer GERD (gastroesophageal reflux disease) Kidney stones IBS (irritable bowel syndrome) High cholesterol Hypertension Hearing problem Migraines Frequent headaches Gastrointestinal problem Emotional problems Chronic bronchitis Carpal tunnel syndrome Asthma Anemia Seasonal allergies Home Medications ?Medication ?Instructions ?Recorded ?Last Taken ?Type ibuprofen 600 mg tablet 600 mg PO Q6H PRN PRN Pain S core 02/05/20 Unknown Rx -05/25 #20 tabs mecobalamin (vitamin B12) 500 mcg mcg PO 09/08/2411/14 History chewable tablet propranolol 60 mg capsule,24 60 mg PO QHS 09/08/24 History hr,extended release blreovxy-vyp-laoiu ac 400 tab PO 11/08/24 11/27/24 His tory mcg-calcium carb 500 mg-vit K1 20 mcg tablet (Women's 50 Plus Multivitamin) sennosides 8.6 mg capsule (senna) 8.6 mg PO QDAY PRN c onstipation 11/08/24 Unknown History vit C 180 mg-D3 10 mcg-zinc 5.5 cap PO 11/08/24 History os-czmpgk-sqmgpxz-calvin-herb capsule (Immune Support (vit c, d and zinc)) sumatriptan succinate 25 mg tablet See Rx Instructions PO .COMPLEX 11/29/24 Unknown History (Imitrex) PRN migraine headache venlafaxine 75 mg capsule,extended 75 mg PO QHS 11/28/24 History release 24 hr Allergy/AdvReac Type Severity Reaction Status Date / Time perfume Allergy throat Verified 11/24/24 13:31 swelling Family History Mother Anxiety Depression Heart disease Mental disorder Severe allergy Pacemaker Father High cholesterol Cancer lung/lymphoma Aunt Arthritis Cancer lymphoma Stomach cancer maternal aunt Aunt Cancer Sister Depression Mental disorder Hypertension Brother Cancer lymphoma Depression Mental disorder Grandmother Heart disease Severe allergy Cancer in stomach Grandfather Suicide Surgical History H/O lithotripsy H/O prior ablation treatment History of appendectomy History of carpal tunnel surgery Social History adopted: No household members: spouse number of children: 3 current occupational status: employed 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 [employer] current occupational exposures/hazards: No pets and animals: No leisure activities: clubs, art, fishing, reading and volunteer work history of recent travel: No sexually active: Yes Smoking Status: Former smoker Tobacco: How many years used: 2 alcohol intake: current alcohol intake frequency: holidays/special occasions only Alcohol type: wine substance use type: does not use diet: lactose free and low salt well-balanced diet: rarely or never caffeine: Yes Type: carbonated beverages, coffee and tea eating out: other during the past year weight has: increased > 10 lbs what type of physical activity do you participate in: walking seatbelt use: always do you feel safe at home: Yes ROS Constitutional Constitutional: Denies fatigue, fever(s), poor appetite, weight gain or weight loss Gastrointestinal Gastrointestinal: Denies belching, bloating, change in bowel habits, change in stool character, chewing difficulty, coffee ground emesis, constipation, cramping, diarrhea, dyspepsia, dysphagia, early satiety, excessive flatus, fecal incontinence, heartburn, hematemesis, hematochezia, hemorrhoids, loose stools, melena, nausea, odynophagia, rectal bleeding, tenesmus, vomiting or weight changes Vital Signs Vital Signs Vital Signs: 11/29/24 05:40 11/29/24 05:40 11/29/24 06:38 Temperature 99.2 F H 99.2 F H Temperature Source Temporal Pulse Rate 56 L 56 L Respiratory Rate 16 16 Respiratory Pattern Normal Blood Pressure 142/65 H 142/65 H Blood Pressure Mean 90 Blood Pressure Source Monitor Blood Pressure Position Sitting Blood Pressure Location Left Arm Pulse Ox 95 95 Oxygen Delivery Method Room Air Weight Weight: 198 lb 6.656 oz Body Mass Index (BMI) 31.1 Physical Exam Const alert, oriented x3, no apparent distress and healthy appearing General Appearance: cooperative GI normal to inspection, nondistended, normoactive bowel sounds, soft to palpation, non-tender and non-distended Percussion: normal to percussion Rectal Exam: deferred Assessment & Plan Assessment/Plan (1) Bloating: PLAN: Assessment and Plan Assessment and Plan (1) Gastroesophageal reflux disease: Plan: This is a 59 yo female pt who has had constipation and GERD for many years. Over the past couple of months she has developed early satiety and abd bloating. She is here for evaluation of these symptoms. Pt will have a GES to assess gastric emptying time. Will consider treatment with metoclopramide pending these results. She may need to have an upper endoscopy Counseled on gastroparesis diet. Regarding her constipation, I encouraged discontinuation of daily senna. Samples of Ibsrela given. If she has positive results will prescribe this to her. Her last colonoscopy was normal in 2019 and her constipation is not new. She will f/u in 2 months. -GES -Trial Ibsrela -Consider EGD -f/u 2 months (2) Bloating: Status: Acute (3) Constipation: Status: Acute Orders: Orders Gastric Emptying Study Today R14.0 - Abdominal distension (gaseous) (2) GERD (gastroesophageal reflux disease):
[2024-11-29 07:04] VITALS: BP 107/61; BP 142/65; PULSE 53; RESP 16; TEMP 36.7; O2SAT 93
--- NOTE | 2024-11-29 07:04 | OP.EGD_ITS ---
Patient Name: Vilma Douglas Procedure Date: 11/29/2024 6:13 AM Date of : 1965 Age: 59 Procedure: Upper GI endoscopy Indications: Epigastric abdominal pain Providers: Adria Cisse DO Referring MD: Willie Adams MD Medicines: Monitored Anesthesia Care Patient Profile: This is a 59 year old female. Refer to note in patient chart for documentation of history and physical. Patient has symptoms of chronic abdominal distention, chronic epigastric abdominal pain, chronic dyspepsia and chronic nausea. Complications: No immediate complications. Procedure: Pre-Anesthesia Assessment: - Prior to the procedure, a History and Physical was performed, and patient medications and allergies were reviewed. The patient is competent. The risks and benefits of the procedure and the sedation options and risks were discussed with the patient. All questions were answered and informed consent was obtained. Patient identification and proposed procedure were verified by the physician in the pre-procedure area. Mental Status Examination: alert and oriented. Airway Examination: normal oropharyngeal airway and neck mobility. Respiratory Examination: clear to auscultation. CV Examination: normal. Prophylactic Antibiotics: The patient does not require prophylactic antibiotics. Prior Anticoagulants: The patient has taken no anticoagulant or antiplatelet agents except for NSAID medication. ASA Grade Assessment: II - A patient with mild systemic disease. After reviewing the risks and benefits, the patient was deemed in satisfactory condition to undergo the procedure. The anesthesia plan was to use monitored anesthesia care (MAC). Immediately prior to administration of medications, the patient was re-assessed for adequacy to receive sedatives. The heart rate, respiratory rate, oxygen saturations, blood pressure, adequacy of pulmonary ventilation, and response to care were monitored throughout the procedure. The physical status of the patient was re-assessed after the procedure. After obtaining informed consent, the endoscope was passed under direct vision. Throughout the procedure, the patient's blood pressure, pulse, and oxygen saturations were monitored continuously. The Endoscope was introduced through the mouth, and advanced to the third part of the duodenum. Small bowel enteroscopy was deemed necessary. The upper GI endoscopy was accomplished without difficulty. The patient tolerated the procedure well. Scope In: 6:55:02 AM Scope Out: 6:57:58 AM Total Procedure Duration Time 0 hours 2 minutes 56 seconds Findings: The examined esophagus was normal. The entire examined stomach was normal. Patchy mild inflammation characterized by congestion (edema) was found in the duodenal bulb. Biopsies were taken with a cold forceps for histology. Verification of patient identification for the specimen was done. Estimated blood loss was minimal. Impression: - Normal esophagus. - Normal stomach. - Chronic duodenitis. Biopsied. Recommendation: - Discharge patient to home. - Resume previous diet. - Continue present medications. - Await pathology results. Procedure Code(s): --- Professional --- 77608, Small intestinal endoscopy, enteroscopy beyond second portion of duodenum, not including ileum; with biopsy, single or multiple CPT copyright 2021 [employer]. All rights reserved. The codes documented in this report are preliminary and upon air moving technician review may be revised to meet current compliance requirements. Adria Cisse DO 11/29/2024 7:04:06 AM This report has been signed electronically. Number of Addenda: 0 Note Initiated On: 11/29/2024 6:13 AM
--- NOTE | 2024-11-29 07:05 | OP.CCLET_ITS ---
11/29/2024 Willie Adams MD [address] [place] [address] [place] [address] Re : Upper GI endoscopy procedure for Vilma Douglas Dear Dr. Adams This procedure was performed on Friday, November 29, 2024. My impressions and recommendations are as follows: Impressions : - Normal esophagus. - Normal stomach. - Chronic duodenitis. Biopsied. Recommendations : - Discharge patient to home. - Resume previous diet. - Continue present medications. - Await pathology results. My findings are described in the full procedure note, which is enclosed. If I can be of further assistance, please feel free to contact me at . Sincerely, Adria Cisse, 11/29/2024 7:04:06 AM This report has been signed electronically.
--- NOTE | 2024-11-29 07:08 | PCM.POST.ANE ---
Anesthesia: Postop Eval I Current Vital Signs Temperature: 98 F Pulse Rate: 53 Blood Pressure: 107/61 Respiratory Rate: 16 Pulse Ox: 95 Oxygen Delivery Method: Room Air Assessment Airway patent: Yes Spontaneous unlabored respirations: Yes Mental status: Awake and Calm nausea: No Vomiting: No Anesthesia Complication: No Fluid Hydration Crystalloid volume administer (ml): 30 Total IV fluid infused: 30 Progress Note Anesthesia document: Postop Eval 1 completed: Yes
[2024-11-29 07:09] VITALS: BP 102/65; BP 107/61; BP 142/65; PULSE 53; RESP 16; TEMP 36.6; O2SAT 94; O2SAT 95
[2024-11-29 07:14] VITALS: BP 114/65; BP 142/65; PULSE 53; RESP 16; TEMP 36.6; O2SAT 94
--- NOTE | 2024-11-29 07:30 | PCM.POSTANE2 ---
Anesthesia Postop Eval I Sum Postop Eval Completion status Anesthesia document: Postop Eval 1 completed: Yes Anesthesia Postop Eval I Summary Anesthesia Postop Eval I Summary: Anesthesia Postop Eval I: Assessment Summary Airway patent Yes 11/29/24 07:09 [email or web address] Spontaneous unlabored Yes 11/29/24 07:09 [email or web address] respirations Mental status Awake,Calm 11/29/24 07:09 [email or web address] nausea No 11/29/24 07:09 [email or web address] Vomiting No 11/29/24 07:09 [email or web address] Anesthesia Postop Eval I: Fluid Summary Crystalloid volume administer 30 11/29/24 07:09 [email or web address] (ml) Colloids volume administered ( ml) Blood Product volume administered (ml) Total IV fluid infused 30 11/29/24 07:09 [email or web address] Anesthesia Postop Eval I: Summary Notes Anesthesia Complication No 11/29/24 07:09 [email or web address] Anesthesia Complication Comment: Post-operative progress note Anesthesia: Postop Eval II Evaluation Mental status: Awake Pain Level: 0 nausea: No Vomiting: No
[2024-11-29 07:44] VITALS: BP 142/65
== END 2024-11-29 07:48 | disposition home or self-care (01) ==
LOC: EN 05:22 → AC 05:23
PROVIDERS: PCP Internal Medicine; Referring Provider Internal Medicine; Visit Provider Internal Medicine Gastroenterology
PROC: 0DJ08ZZ Inspection of Upper Intestinal Tract, Via Natural or Artificial Opening Endoscopic (ICD-10-PCS; CPT 43235; principal; 2024-11-29 06:25)
DX: K21.9 Gastro-esophageal reflux disease without esophagitis (principal); K29.80 Duodenitis without bleeding; I10 Essential (primary) hypertension; E78.00 Pure hypercholesterolemia, unspecified; J45.909 Unspecified asthma, uncomplicated; Z87.891 Personal history of nicotine dependence; Z79.899 Other long term (current) drug therapy
CPT/HCPCS: 43239; 88305; J2405

== ENCOUNTER → 2025-01-23 | Outpatient (CLI) | payer OTHER, SELFPAY ==
--- NOTE | 2025-01-23 06:19 | CT_ITS ---
PROCEDURE: ABDOMEN/PELVIS WITH CONTRAST 01/23/2025 REASON FOR EXAM: ABD PAIN TECHNIQUE: Abdomen and pelvis CT with intravenous contrast. Coronal and Sagittal reconstruction series were provided. PATIENT PREPARATION: Per protocol ORAL CONTRAST TYPE: Patient ingested oral contrast. CONTRAST: Isovue-300 50 VOLUME: 100 mL One or more dose reduction techniques were used (e.g., Automated exposure control, adjustment of the mA and/or kV according to patient size, use of iterative reconstruction technique. RADIATION DOSE SUMMARY: CTDlvol: 18.8 mGy DLP: 1045 mGycm COMPARISON: 02/05/2020. FINDINGS: Hepatic steatosis. Unchanged scattered simple hepatic cysts with the largest measuring 1.2 cm. Prior appendectomy. Uncomplicated colonic diverticulosis. Diffuse thickening of the stomach suggestive of gastritis. Unchanged horseshoe kidney. Unchanged 3 mm right renal nonobstructing stone. Unchanged scattered left renal cysts with the largest measuring 3.5 cm. Unchanged bilateral fullness of the extrarenal pelves. Mild diffuse spondylosis. The visualized lung bases are unremarkable. Normal gallbladder and extrahepatic biliary system. Normal spleen. Normal pancreas. Normal bilateral adrenal glands. There is no right renal mass. There is no right hydronephrosis. Normal visualized right ureter. There is no left renal mass. There are no left renal calculi. There is no left hydronephrosis. Normal visualized left ureter. Normal small intestine. There is no demonstrated peritoneal fluid. Mild calcified atheromatous plaques of the abdominal aorta. Normal inferior vena cava. Normal retroperitoneum. Normal urinary bladder. There is no pelvic mass lesion or lymphadenopathy. There is no pelvic fluid. CT/Abdomen/Pelvis WITH Contrast IMPRESSION: Hepatic steatosis. Unchanged scattered simple hepatic cysts with the largest measuring 1.2 cm. Prior appendectomy. Uncomplicated colonic diverticulosis. Diffuse thickening of the stomach suggestive of gastritis. Unchanged horseshoe kidney. Unchanged 3 mm right renal nonobstructing stone. Unchanged scattered left renal cysts with the largest measuring 3.5 cm. Unchanged bilateral fullness of the extrarenal pelves. Mild diffuse spondylosis. Reading Location: [place] [id number]
--- OUTSIDE RECORDS SUMMARY | 2025-01-23 06:20 | XMS RPT_ITS | CCD ---
Author Organization [facility] Care Team Providers Care Manager Lean Name Role Phone MANDO COON DO Admitting Unavailable MANDO COON DO Attending Unavailable MANDO COON DO Primary Care Unavailable DOMINGA, DR LUH Osei Admitting Unavaila ble DOMINGA, DR LUH Osei Attending Unavaila ble DOMINGA, DR LUH Osei Primary Care Unavaila babar Graham MD, Alejandrina Primary Care Provider Seth BARRIENTOS, Alejandrina Primary Care Provider Seth BARRIENTOS, Alejandrina Primary Care Provider Seth BARRIENTOS, Alejandrina Primary Care Provider [phone] JEANMARIE, LAUREL Referring Unavailable GANTA, ALEJANDRINA Primary Care Unavailable GANTA, ALEJANDRINA Attending Unavailable GANTA, ALEJANDRINA Primary Care Unavailable GANTA, ALEJANDRINA Referring Unavailable GANTA, ALEJANDRINA Primary Care Unavailable JEANMARIE, LAUREL Attending Unavailable GANTA, ALEJANDRINA Primary Care Unavailable GANTA, ALEJANDRINA Primary Care Unavailable JEANMARIE, LAUREL Referring Unavailable GANTA, ALEJANDRINA Primary Care Unavailable GANTA, ALEJANDRINA Referring Unavailable GANTA, ALEJANDRINA Referring Unavailable GANTA, ALEJANDRINA Primary Care Unavailable JEANMARIE, LAUREL Attending Unavailable GANTA, ALEJANDRINA Primary Care Unavailable JEANMARIE, LAUREL Attending Unavailable GANTA, ALEJANDRINA Primary Care Unavailable JEANMARIE, LAUREL Referring Unavailable GANTA, ALEJANDRINA Primary Care Unavailable Dr. Alejandrina Graham MD Referring Provider Alma Craig Attending Provider Alma Craig Referring Provider Angie BARRIENTOS, Dr. Tapia Primary Care Provider Angie BARRIENTOS, Dr. Tapia Attending Provider [phone] Oleghe MD, Dr. Efewongbe Referring Provider Naveed PHARMACY RESIDENT-C, Fadia Attending Provider Henok PHARMACY RESIDENT-C, Sharon Attending Provider Henok PHARMACY RESIDENT-C, Sharon Referring Provider Friend , Dr. Covington Attending Provider Dr. Adria Cisse DO Other Provider [phone] Corinna BARRIENTOS, Dr. Mendieta Attending Provider Oleghe, Efewongbe Referring Unavailable Oleghe, Efewongbe Primary Care Unavailable Henok PHARMACY RESIDENTSharon Attending Unavailable Oleghe, Efewongbe Referring Unavailable Oleghe, Efewongbe Primary Care Unavailable FriendAdria Attending Unavailable Ganta, Alejandrina Primary Care Unavailable Assessment, Health Risk Attending Unavaila ble Assessment, Health Risk Referring Unavaila ble Sirisha Mcginnis Attending Unavailable Oleghe, Efewongbe Referring Unavailable Oleghe, Efewongbe Primary Care Unavailable Adria Cisse Consulting Unavailable Adria Cisse Attending Unavailable DamonnasAlma mackay Attending Unavailable DamonnasovAlma Attending Unavailable Gayatri Weinstein Attending Unavailable Ganta, Alejandrina Referring Unavailable AtanasovAlma Attending Unavailable Oleghe, Efewongbe Attending Unavailable Oleghe, Efewongbe Primary Care Unavailable Ganta, Alejandrina Referring Unavailable Oleghe, Efewongbe Primary Care Unavailable Ganta, Alejandrina Referring Unavailable Fadia Lucio Attending Unavailable DamonnasovAlma Attending Unavailable AtanasovAlma Referring Unavailable Oleghe, Efewongbe Primary Care Unavailable Oleghe, Efewongbe Referring Unavailable Oleghe, Efewongbe Primary Care Unavailable Oleghe, Efewongbe Attending Unavailable Gayatri Weinstein Attending Unavailable Gayatri Weinstein Referring Unavailable Oleghe, Efewongbe Primary Care Unavailable Oleghe, Efewongbe Primary Care Unavailable Fadia Lucio Attending Unavailable Henok PHARMACY RESIDENTSharon Referring Unavailable Oleghe, Efewongbe Primary Care Unavailable [place] PHARMACY RESIDENT, Sharon Attending Unavailable Allergies Allergy Classification Reported Allergen(s) Allergy Type Date of Onset Reaction(s) Facility (20 sources) Seasonal allergy; Translations: [SEASONAL ALLERGIES] Allergy to substance 8 Other: See Comments [facility] (14 sources) Perfumes; Translations: [PERFUMES] Allergy to substance 3 Shortness of Breath [facility] Work Phone: (1 source) perfume Drug allergy (disorder) 5 [facility] Repository Medications Current Medications Medication Drug Class(es) Dates Sig (Normalized) Sig (Original) [id number] 200 actuat albuterol 0.09 mg/actuat metered dose inhaler (17 sources) beta2-Adrenergic Agonist Start: 12-15-2022 take 2 puff(s) by inhalation every four hours as needed for wheezing albuterol HFA (PROVENTIL HFA, VENTOLIN HFA) 90 mcg/actuation inhaler Indications: Allergy to perfume , Airway compromise Inhale 2 Puffs as instructed every 4 hours as needed for wheezing/shortnes s of breath. 8 Each 1 12/15/2022 Active Start: 06-28-2020 End: 06-09-2022 take 2 puff(s) by inhalation every four hours as needed albuterol HFA (PROVENTIL HFA, VENTOLIN HFA) 90 mcg/actuation inhaler Indications: Cough , Allergy, subsequent encounter Inhale 2 Puffs as instructed every 4 hours as needed. 6.7 g 11 06/28/2020 06/09/2022 Discontinued Comment on above: Inhale 2 Puffs as in structed every 4 hours as needed. Inhale 2 Puffs as in structed every 4 hours as needed for wheezing/shortness of breath. amoxicillin 875 mg / clavulanate 125 mg oral tablet (1 source) Penicillin-class Antibacterial Start: End: take 1 tablet by mouth twice daily amoxicillin-clavulan ic acid (AUGMENTIN) 875-125 mg per tablet Indications: Bacterial sinusitis Take 1 tablet by mouth twice daily for 7 days. 14 tablet 0 07/25/2022 08/01/2022 Active Comment on above: Take 1 tablet by nimo twice daily for 7 days. bismuth subsalicylate (5 sources) Bismuth take 1 tablet by mouth twice daily bismuth subsalicylate (DIGESTIVE RELIEF ORAL) Take 1 tablet by mouth two times a day. Active U-P1-kzjd-fvc-lsund-tp ng-herb (IMMUNE SUPPORT, VIT C,D,ZINC,) 180 mg-10 mcg- 5.5 mg-150 mg cap (5 sources) take 2 capsules by mouth once daily N-Q5-jgbk-sneha-biofl- ging-herb (IMMUNE SUPPORT, VIT C,D,ZINC,) 180 mg-10 mcg- 5.5 mg-150 mg cap Take 2 capsules by mouth once daily. Active cetirizine hydrochloride 10 mg disintegrating oral tablet (1 source) Histamine-1 Receptor Antagonist Start: End: take 1 tablet by mouth once daily as needed cetirizine 10 mg ODT Indications: Cough , Allergy, subsequent encounter Take 1 tablet by mouth once daily. as needed for allergy symptoms - nasal drainage, watery or puffy eyes 24 tablet 11 06/28/2020 06/09/2022 Discontinued Comment on above: Take 1 tablet by nimo once daily. as needed for allergy symptoms - nasal drainage, watery or puffy eyes esomeprazole 20 mg delayed release oral capsule (1 source) Proton Pump Inhibitor Start: End: esomeprazole (NEXIUM) 20 mg capsule Take 1 cap daily before breakfast and at bedtime. 90 capsule 3 08/27/2021 06/09/2022 Discontinued Comment on above: Take 1 cap daily bef ore breakfast and at bedtime. famotidine 40 mg oral tablet (2 sources) Histamine-2 Receptor Antagonist Start: take 1 tablet by mouth once daily as needed Famotidine 40 mg tablet Active 40 mg PO daily as needed for eructation December 28, 2024 12:00am folic acid/multivit-min/lute in (CENTRUM SILVER ORAL) (1 source) End: folic acid/multivit-min/amandeep tein (CENTRUM SILVER ORAL) Take by mouth. 0 06/09/2022 Discontinued Comment on above: Take by mouth. ibuprofen 600 mg oral tablet (6 sources) Nonsteroidal Anti-inflammatory Drug Start: take 1 tablet by mouth every six hours as needed for pain Ibuprofen 600 MG tablet Active 600 mg PO EVERY 6 HOURS NEEDED as needed for Pain Score 1-10/10 February 05, 2020 12:00am Lactobacillus rhamnosus GG (CULTURELLE ORAL) (5 sources) take 1 capsule by mouth once daily Lactobacillus rhamnosus GG (CULTURELLE ORAL) Take 1 capsule by mouth once daily. Active mecobalamin (6 sources) Start: 025 Mecobalamin (Vitamin B12) 500 mcg tablet,chewable Active ug PO September 08, 2024 1:00am miSOPROStol 0.2 mg oral tablet (1 source) Prostaglandin E1 Analog Start: Misoprostol (Cytotec) 200 mcg tablet Active 200 ug PO .complex 2 January 12, 2025 12:00am take the night before and two hours prior to the procedure Multivitamins-Minerals -Lutein (MULTIVITAMIN 50 PLUS) tab (13 sources) Multivitamins-Mi nera ls-Lutein (MULTIVITAMIN 50 PLUS) tab Take 1 tablet by mouth once daily. Active Multivitamins-Mi nerals-Lutein (MULTIVITAMIN 50 PLUS) tab Take 1 tablet by mouth once daily. 0 Active Comment on above: Take 1 tablet by [facility] once daily. Xr-Qoi-Iyalf-Calcium Carb-K1 (Women's 50 Plus Multivitamin) 400 mcg-500 mg calcium-20 mcg tablet (6 sources) Start: 5 Xs-Gsd-Jpjck-Calcium Carb-K1 (Women's 50 Plus Multivitamin) 400 mcg-500 mg calcium-20 mcg tablet Active {tbl} PO November 08, 2024 12:00am 24 hr propranolol hydrochloride 60 mg extended release oral capsule (19 sources) beta-Adrenergic Humberto Start: 5 take 1 capsule by mouth every twenty-four hours at bedtime Propranolol 60 mg capsule,extended release 24 hr Active 60 mg PO AT BEDTIME September 08, 2024 1:00am Start: 09-08-2024 take 1 capsule by mo [facility] once daily Propranolol 60 mg capsule,extended release 24 hr Active 60 mg PO daily September 08, 2024 1:00am Start: 09-22-2023 End: 01-17-2024 take 1 capsule by mouth once daily propranolol ER (INDERAL LA) 60 mg 24 hr capsule take 1 capsule by mouth every day 90 capsule 3 01/17/2024 Active Comment on above: Take 1 capsule by [facility] once daily. LBPYT-QXGRNKOFE-OXNO ESIUM MISC (5 sources) SENNA-BISACODYL- MAGN ESIUM MISC 1 tablet as needed. Active sennosides, fpc 8.6 mg oral capsule (12 sources) Start: 09-08-19 End: 11-09-19 take 1 capsule by mouth once daily as needed for constipation Sennosides (Senna) 8.6 mg capsule Active 8.6 mg PO daily as needed for constipation November 08, 2024 5:43pm SUMAtriptan 25 mg oral tablet (10 sources) Serotonin-1b and Serotonin-1d Receptor Agonist Start: 11-30-19 take 1 tablet by mouth every hour as needed for headache Sumatriptan Succinate (Imitrex) 25 mg tablet Active 0 mg PO .COMPLEX as needed for migraine headache November 29, 2024 12:00am take 1 tab at onset of headache; if no relief may repeat 1 tab after at least 2 hrs; max = 4 tabs/24 hr orally PRN; Start: 11-08-2024 End: 11-29-2024 take 1 tablet by mouth every two hours Sumatriptan Succinate (Imitrex) 25 mg tablet Discontinued 0 PO .COMPLEX 14 November 08, 2024 12:00am November 29, 2024 5:48am take 1 tab at onset of headache; if no relief may repeat 1 tab after at least 2 hrs; max = 4 tabs/24 hr PO 24 hr venlafaxine 75 mg extended release oral capsule (20 sources) Serotonin and Norepinephrine Reuptake Inhibitor Start: 11-29-2024 take 1 capsule by mouth every twenty-four hours at bedtime Venlafaxine 75 mg capsule,extended release 24hr Active 75 mg PO AT BEDTIME November 29, 2024 12:00am Start: 11-08-2024 End: 11-29-2024 take 1 capsule by mouth once daily Venlafaxine 75 mg capsule,extended release 24hr Discontinued 75 mg PO daily November 08, 2024 6:17pm November 29, 2024 5:48am Start: 09-08-2024 End: 11-08-2024 take 1 capsule by mouth once daily Venlafaxine 37.5 mg capsule,extended release 24hr Discontinued 37.5 mg PO daily September 08, 2024 1:00am November 08, 2024 6:18pm Start: 09-22-2023 End: 06-26-2024 take 1 capsule by mouth once daily venlafaxine ER (EFFEXOR XR) 37.5 mg 24 hr capsule Indications: Anxiety and depression Take 1 capsule by mouth once daily. 90 capsule 3 06/26/2024 Active Start: 06-23-2023 End: 09-22-2023 take 1 capsule by mouth once daily venlafaxine ER (EFFEXOR XR) 75 mg 24 hr capsule Indications: Anxiety and depression Take 1 capsule by mouth once daily. 90 capsule 2 06/23/2023 09/22/2023 Discontinued Start: 06-09-2022 End: 06-23-2023 take 1 capsule by mouth once daily venlafaxine ER (EFFEXOR XR) 37.5 mg 24 hr capsule Indications: Anxiety and depression Take 1 capsule by mouth once daily. 30 capsule 11 12/15/2022 06/23/2023 Discontinued Comment on above: Take 1 capsule by [facility] once daily. vitamin b12 1 mg/ml injectable solution (1 source) Vitamin B12 Start: 2019 End: 2021 inject 1 mL by intramuscular injection every month cyanocobalamin 1,000 mcg/mL Inject 1 mL intramuscularly once every month. as directed 1 Vial 11 03/01/2020 06/09/2022 Discontinued Comment on above: Inject 1 mL intramus cularly once every month. as directed Vonoprazan (Voquezna) 10 mg tablet (2 sources) Start: 2024 take 1 tablet by mouth once daily Vonoprazan (Voquezna) 10 mg tablet Active 10 mg PO daily December 13, 2024 12:00am Completed/Discontinued Medications Medication Drug Class(es) Dates Sig (Normalized) Sig (Original) A-R9-Jxee-Sneha-Biof l-Ging-Herb (Immune Support (Vit C,D,Zinc)) 180 mg-10 mcg- 5.5 mg-150 mg capsule (6 sources) Start: 11-08-2024 End: 01-12-2025 take 1 capsule by mouth once L-M5-Hxxh-Sneha-Biofl -Ging-Herb (Immune Support (Vit C,D,Zinc)) 180 mg-10 mcg- 5.5 mg-150 mg capsule Discontinued NMA PO November 08, 2024 12:00am January 12, 2025 2:10pm Start: 11-08-2024 take 1 capsule by mo [facility] once W-C8-Njjv-Gla-Kvkhj-Omoa-Herb (Immune Support (Vit C,D,Zinc)) 180 mg-10 mcg- 5.5 mg-150 mg capsule Active NMA PO November 08, 2024 12:00am calcium cit/vit D3/isoflavon 2 (MENOPAUSE RELIEF ORAL) (4 sources) End: 06-26-2024 calcium cit/vit D3/isoflavon 2 (MENOPAUSE RELIEF ORAL) Take 2 capsules by mouth once daily. 06/26/2024 Discontinued calcium cit/vit D3/isoflavon 2 (MENOPAUSE RELIEF ORAL) Take 2 capsules by mouth once daily. Active doxycycline hyclate 100 mg oral capsule (6 sources) Tetracycline-class Drug Start: 02-15-2023 End: 11-08-2024 take 1 capsule by mouth twice daily Doxycycline Hyclate 100 mg capsule Discontinued 100 mg PO TWICE A DAY 14 February 15, 2023 12:00am November 08, 2024 5:32pm lactobacillus rhamnosus gg [id number] unt oral capsule (6 sources) Start: 09-08-2024 End: 11-08-2024 take 10 capsules by mouth once daily Lactobacillus Rhamnosus Gg (Culturelle) 10 billion cell capsule Discontinued 1 NMA PO daily September 08, 2024 1:00am November 08, 2024 5:33pm LORazepam 0.5 mg oral tablet (15 sources) Benzodiazepine Start: 12-15-2022 End: 06-26-2024 LORazepam (ATIVAN) 0.5 mg Take 0.5 mg by mouth. 12/15/2022 06/26/2024 Discontinued (Other) Comment on above: Take 1 tablet by nimo three times daily as needed for up to 30 days. Take 1 tablet by nimo three times a day as needed for up to 30 days. Take 0.5 mg by mouth . metoclopramide 5 mg oral tablet (6 sources) Dopamine-2 Receptor Antagonist Start: 02-15-2023 End: 11-08-2024 take 1 tablet by mouth every eight hours as needed for nausea and vomiting Metoclopramide Hcl (Reglan) 5 mg tablet Discontinued 5 mg PO EVERY 8 HOURS NEEDED as needed for nausea and vomiting 04 03February 15, 2023 12:00am November 08, 2024 5:33pm montelukast 10 mg oral tablet (2 sources) Leukotriene Receptor Antagonist Start: 06-23-2023 End: 09-22-2023 take 1 tablet by mouth once daily at bedtime montelukast (SINGULAIR) 10 mg tablet Indications: Moderate persistent asthma without complication Take 1 tablet by mouth daily at bedtime. 90 tablet 1 06/23/2023 09/22/2023 Discontinued Comment on above: Take 1 tablet by nimo th daily at bedtime. pantoprazole 40 mg delayed release oral tablet (15 sources) Proton Pump Inhibitor Start: 12-13-2024 End: 12-13-2024 take 1 tablet by mouth once daily Pantoprazole 40 mg tablet,delayed release (DR/EC) Discontinued 40 mg PO daily December 13, 2024 12:00am December 13, 2024 8:16am Start: 06-09-2022 End: 06-23-2023 take 1 tablet by mouth once daily pantoprazole DR (PROTONIX) 40 mg tablet Indications: Gastroesophageal reflux disease without esophagitis Take 1 tablet by mouth once daily. 90 tablet 1 06/09/2022 06/23/2023 Discontinued Comment on above: Take 1 tablet by nimo once daily. sennosides (SENNA-GEN ORAL) (2 sources) End: 09-22-2023 take 2 tablets by mouth once daily sennosides (SENNA-GEN ORAL) Take 2 tablets by mouth once daily. 0 09/22/2023 Discontinued take 2 tablets by mouth once salo ly sennosides (SENNA-GEN ORAL) Take 2 tablets by mouth once daily. 0 Active Comment on above: Take 2 tablets by mo [facility] once daily. 1 ml triamcinolone acetonide 40 mg/ml injection (2 sources) Corticosteroid Start: 06-26-2024 End: 06-26-2024 triamcinolone acetonide 40 mg injection (KeNALog 40) turmeric,curcumin,calvin ,vitamin (6 sources) Start: 11-08-2024 End: 11-24-2024 turmeric,curcumin,ginge r,vitamin Discontinued PO November 08, 2024 12:00am November 24, 2024 1:33pm Start: 11-08-2024 turmeric,curcu min,calvin,vitamin Active PO November 08, 2024 12:00am Problems Active Problems Problem Classification Problem Date Documented Da te Episodic/Chronic Abdominal pain (12 sources) Periumbilical pain; Translations: [Right upper quadrant pain] Onset: 03-25-2022 Episodic Allergic reactions (2 sources) Allergy to substance; Translations: [Other allergy status, other than to drugs and biological substances] Episodic Anxiety disorders (20 sources) Mixed anxiety and depressive disorder; Translations: [Anxiety disorder, unspecified] Onset: 09-22-2023 Chronic Asthma (14 sources) Uncomplicated moderate persistent asthma; Translations: [Moderate persistent asthma, uncomplicated] Onset: 09-22-2023 06-23-2023 Chronic Diabetes mellitus without complication (6 sources) Hyperglycemia; Translations: [Hyperglycemia, unspecified] 11-10-2024 Episodic Disorders of lipid metabolism (20 sources) Hyperlipidemia; Translations: [Hyperlipidemia, unspecified] Onset: 12-15-2022 Chronic Esophageal disorders (20 sources) Gastro-esophageal reflux disease without esophagitis; Translations: [Gastroesophageal reflux disease without esophagitis] Onset: 03-25-2022 Chronic Essential hypertension (15 sources) Essential hypertension; Translations: [Essential (primary) hypertension] Onset: 11-09-2024 09-22-2023 Chronic Headache; including migraine (13 sources) Migraine; Translations: [Migraine, unspecified, not intractable, without status migrainosus] Onset: 11-09-2024 11-08-2024 Chronic Headache; including migraine (6 sources) Headache; Translations: [Headache] 02-23-2023 Episodic Immunizations and screening for infectious disease (3 sources) Viral screening status; Translations: [Encounter for screening for other viral diseases] Episodic Malaise and fatigue (1 source) Malaise; Translations: [Other malaise] Episodic Menopausal disorders (18 sources) Postmenopausal bleeding; Translations: [Postmenopausal bleeding] Onset: 11-29-2024 11-09-2024 Chronic Comment on above: s/p ablation greater than 10 years. s/p ablation greater than 10 years. Endometrial lining 4mm s/p ablation greater than 10 years. Endometrial lining 4mm. cytotec preop. Mood disorders (1 source) Mood disorders; Translations: [Depression, unspecified] Onset: 11-09-2024 Nausea and vomiting (1 source) Nausea with vomiting, unspecified; Translations: [Nausea with vomiting, unspecified] Onset: 03-25-2022 Episodic Nonspecific chest pain (3 sources) Chest pain, unspecified; Translations: [Chest pain, unspecified] Onset: 03-25-2022 Episodic Nutritional deficiencies (5 sources) Cobalamin deficiency; Translations: [Deficiency of other specified B group vitamins] Episodic Other aftercare (1 source) Encounter for therapeutic drug level monitoring; Translations: [Encounter for therapeutic drug monitoring] Onset: 04-05-2024 Episodic Other connective tissue disease (1 source) Pain in right lower limb; Translations: [Pain in right leg] 06-23-2023 Episodic Other connective tissue disease (1 source) Trochanteric bursitis of right hip; Translations: [Trochanteric bursitis, right hip] 06-26-2024 Episodic Other gastrointestinal disorders (5 sources) Burping; Translations: [Eructation] Episodic Other gastrointestinal disorders (17 sources) Constipation; Translations: [Constipation, unspecified] Episodic Other gastrointestinal disorders (20 sources) Abdominal bloating; Translations: [Abdominal distension (gaseous)] Episodic Other gastrointestinal disorders (12 sources) Chronic constipation; Translations: [Other constipation] 11-08-2024 Episodic Other gastrointestinal disorders (4 sources) Dysphagia; Translations: [Dysphagia, unspecified] 12-13-2024 Episodic Other gastrointestinal disorders (1 source) Constipation, unspecified; Translations: [Constipation, unspecified] Onset: 12-28-2024 Episodic Other gastrointestinal disorders (1 source) Dysphagia, unspecified; Translations: [Dysphagia, unspecified] Onset: 12-13-2024 Episodic Other gastrointestinal disorders (2 sources) Abdominal distension (gaseous); Translations: [Abdominal distension (gaseous)] Onset: 11-09-2024 Episodic Other gastrointestinal disorders (1 source) Other constipation; Translations: [Other constipation] Onset: 11-14-2024 Episodic Other lower respiratory disease (1 source) Shortness of breath; Translations: [Shortness of breath] Onset: 03-25-2022 Episodic Other lower respiratory disease (1 source) Respiratory obstruction; Translations: [Other specified respiratory disorders] Episodic Other non-traumatic joint disorders (1 source) Joint pain; Translations: [Pain in unspecified joint] Episodic Other non-traumatic joint disorders (2 sources) Hip pain; Translations: [Pain in left hip] 06-26-2024 Episodic Other non-traumatic joint disorders (1 source) Pain in left hip; Translations: [Left hip pain] Onset: 06-26-2024 Episodic Other nutritional; endocrine; and metabolic disorders (1 source) Weight gain; Translations: [Abnormal weight gain] 04-05-2024 Episodic Other screening for suspected conditions (not mental disorders or infectious disease) (7 sources) Patient encounter status; Translations: [Encounter for screening for lipoid disorders] Onset: 11-09-2024 Episodic Other skin disorders (1 source) Eruption; Translations: [Rash and other nonspecific skin eruption] Episodic Other upper respiratory infections (1 source) Bacterial sinusitis; Translations: [Chronic sinusitis, unspecified] Chronic Skin and subcutaneous tissue infections (6 sources) Cellulitis; Translations: [Cellulitis, unspecified] 02-23-2023 Episodic Thyroid disorders (3 sources) Goiter; Translations: [Nontoxic goiter, unspecified] Onset: 04-05-2024 04-05-2024 Chronic Past or Other Problems Problem Classification Problem Date Documented Da te Episodic/Chronic Blindness and vision defects (2 sources) Visual disturbance; Translations: [Unspecified visual disturbance] Onset: 09-22-2023 09-22-2023 Episodic Results Test Name Value Interpretation Reference Range Facility 12 Lead EKGon 01-22-2025 12 Lead EKG [facility] Cardiovascular Services [address] [place] [address] 12 Lead EKG 01/22/25 0729 MR#: [id number] Acct: [id number] Name: POLINA THOMSON Rep #: [id number] : 1965 59 From: Jamari Michael MD Attending Dr: Dr. Gayatri Weinstein MD Status: PRE [facility] Ordering Dr: Gayatri Weinstein MD Date: 01/22/25 Location: [facility] Sex: F C Admitted: Test Reason : PREOP Blood Pressure : */* mmHG Vent. Rate : 55 BPM Atrial Rate : 55 BPM P-R Int : 166 ms QRS Dur : 102 ms QT Int : 422 ms P-R-T Axes : 67 55 41 degrees QTcB Int : 403 ms Sinus bradycardia Otherwise normal ECG No previous ECGs available Confirmed by Jamari Michael ([id number]), food expeditor KELECHI MOSHER ([id number]) on 01/22/2025 10:43:59 AM Referred By: Gayatri Weinstein Confirmed By: Jamari Michael 01/22/25 1044 Date Jamari Michael MD CC: Dr. Willie Adams MD; Dr. Gayatri Weinstein MD Signed Normal [facility] Basic Metabolic Profile (BMP )on 01-17-2025 BUN/CRE 11.7 RATIO Normal 10-20 [facility] Comment on above: Performed By: #### L 500.2500, L100.0500, BTS ####[facility] [id number] [place], [address] Calcium [Mass/Vol] 9.0 mg/dL Normal 7.6-11.0 [facility] Comment on above: Performed By: #### L 500.2500, L100.0500, BTS ####[facility] [id number] [place], [address] Chloride [Moles/Vol] 104 mmol/L Normal 98-108 [facility] Comment on above: Performed By: #### L 500.2500, L100.0500, BTS ####[facility] [id number] [place], [address] CO2 [Moles/Vol] 24.1 mmol/L Normal 21.0-32.0 [facility] Comment on above: Performed By: #### L 500.2500, L100.0500, BTS ####[facility] [address] [place], [address] Creatinine [Mass/Vol] 1.15 mg/dL Normal 0.70-1.20 [facility] Comment on above: Performed By: #### L 500.2500, L100.0500, BTS ####[facility] [address] [place], [address] GAP 11 Normal 5-15 [facility] Comment on above: Performed By: #### L 500.2500, L100.0500, BTS ####[facility] [address] [place], [address] GFR/1.73 sq M.predicted among non-blacks MDRD (S/P/Bld) [Vol rate/Area] 56 mL/min/{1.73_m2} Low >60 [facility] Comment on above: Result Comment: mL/m in/1.73m2 CKD-EPI Creatinine Equation (2020) Performed By: #### L 500.2500, L100.0500, BTS ####[facility] [address] [place], [address] Glucose [Mass/Vol] 97 mg/dL Normal 70-99 [facility] Comment on above: Performed By: #### L 500.2500, L100.0500, BTS ####[facility] [address] [place], [address] Potassium [Moles/Vol] 4.1 mmol/L Normal 3.3-5.1 [facility] Comment on above: Performed By: #### L 500.2500, L100.0500, BTS ####[facility] [address] [place], [address] Sodium [Moles/Vol] 139 mmol/L Normal 133-145 [facility] Comment on above: Performed By: #### L 500.2500, L100.0500, BTS ####[facility] [address] [place], [address] Urea nitrogen [Mass/Vol] 13 mg/dL Normal 4-19 [facility] Comment on above: Performed By: #### L 500.2500, L100.0500, BTS ####[facility] [address] [place], [address] CBC-Complete Blood Cnt No Di ffon 01-17-2025 Erythrocyte distribution width (RBC) [Ratio] 12.0 % Normal 11.6-14.6 [facility] Comment on above: Performed By: #### L 500.2500, L100.0500, BTS ####[facility] [address] [place], [address] Hematocrit (Bld) [Volume fraction] 39.9 % Normal 37-47 [facility] Comment on above: Performed By: #### L 500.2500, L100.0500, BTS ####[facility] [address] [place], [address] Hemoglobin (Bld) [Mass/Vol] 13.5 g/dL Normal 12.0-15.0 [facility] Comment on above: Performed By: #### L 500.2500, L100.0500, BTS ####[facility] [address] [place], [address] MCH (RBC) [Entitic mass] 30.7 pg Normal 27.0-32.0 [facility] Comment on above: Performed By: #### L 500.2500, L100.0500, BTS ####[facility] [address] [place], [address] MCHC (RBC) [Mass/Vol] 33.8 g/dL Normal 32-36 [facility] Comment on above: Performed By: #### L 500.2500, L100.0500, BTS ####[facility] [address] [place], [address] MCV (RBC) [Entitic vol] 90.7 fL Normal 81-99 [facility] Comment on above: Performed By: #### L 500.2500, L100.0500, BTS ####[facility] [address] [place], [address] Platelet mean volume (Bld) [Entitic vol] 10.8 fL Normal 6.2-12.0 [facility] Comment on above: Performed By: #### L 500.2500, L100.0500, BTS ####[facility] [address] [place], [address] Platelets (Bld) [#/Vol] 241 10*3/uL Normal 150-450 [facility] Comment on above: Performed By: #### L 500.2500, L100.0500, BTS ####[facility] [address] [place], [address] RBC (Bld) [#/Vol] 4.40 10*6/uL Normal 4.2-5.4 [facility] Comment on above: Performed By: #### L 500.2500, L100.0500, BTS ####[facility] [address] [place], [address] RDW SD 40.0 fl Normal 35.1-43.9 [facility] Comment on above: Performed By: #### L 500.2500, L100.0500, BTS ####[facility] [address] [place], [address] WBC (Bld) [#/Vol] 5.3 10*3/uL Normal 4.4-11.0 [facility] Comment on above: Performed By: #### L 500.2500, L100.0500, BTS ####[facility] [address] [place], [address] Type AND Screenon 01-17-2025 ABO and Rh group Nom (Bld) Blood group B Rh(D) negative Normal [facility] Comment on above: Order Comment: Reaso n for Laboratory Test PRE OPD C Performed By: #### L 500.2500, L100.0500, BTS ####[facility] [address] [place], [address] [employer] Office Visit Reporton 01-12-2025 [employer] Office Visit Report [facility] Emergency Department [address], [address] [place] [address] OFFICE VISIT Date of Service: 01/12/25 MR#: [id number] Acct: [id number] Name: POLINA THOMSON Rep #: [id number] : 1965 Provider: Dr. Gayatri sol MD Age/Sex: 59/F Location: [facility] Status: Signed Intake Vital Signs 11/29/24 05:40 01/12/25 14:06 Height 5 ft 7 in 5 ft 7 in Weight: 201 lb 4 oz BMI 31.5 BP 115/69 Intake Visit Reasons: Consult D C [employer] Required: No Is patient in pain?: Yes (on and off pain, ) Allergies perfume Allergy (Verified 01/12/25 14:07) throat swelling Medications ???Medication ???Instructions ???Recorded ???Confirmed ???Type ibuprofen 600 mg tablet 600 mg PO Q6H PRN PRN Pain Score 0 02/05/20 01/12/25 Rx 1-05/25 #20 tabs mecobalamin (vitamin B12) 500 mcg mcg PO 09/08/24 01/12/25 History chewable tablet propranolol 60 mg capsule,24 60 mg PO QHS 09/08/24 01/12/25 His tory hr,extended release vnzrvxtt-snv-dcqbq ac 400 tab PO 11/08/24 01/12/25 History mcg-calcium carb 500 mg-vit K1 20 mcg tablet (Women's 50 Plus Multivitamin) sennosides 8.6 mg capsule (senna) 8.6 mg PO QDAY PRN constipation 0 11/08/24 01/12/25 History sumatriptan succinate 25 mg tablet See Rx Instructions PO .COMPLEX 11/29/24 01/12/25 History (Imitrex) PRN migraine headache venlafaxine 75 mg capsule,extended 75 mg PO QHS 11/29/24 01/12/25 H istory release 24 hr vonoprazan 10 mg tablet (Voquezna) 10 mg PO QDAY #30 tabs 12/13/24 01/12/25 Rx famotidine 40 mg tablet 40 mg PO QDAY PRN eructation #30 0 12/28/24 01/12/25 Rx tabs misoprostol 200 mcg tablet 200 mcg PO .complex #2 tabs 01/12/25 Rx (Cytotec) Patient : No : No PFSH Medical History Wears glasses Depression Anxiety Fatty liver Injury of head and neck Loss of consciousness Dietary restriction History of IBS Non-smoker Blood glucose elevated Hyperlipidemia Anxiety and depression Chronic constipation Greater trochanter fracture Palpitations with regular cardiac rhythm Vaginal delivery Horseshoe kidney Vision problems Skin cancer GERD (gastroesophageal reflux disease) Kidney stones IBS (irritable bowel syndrome) High cholesterol Hypertension Hearing problem Migraines Frequent headaches Gastrointestinal problem Emotional problems Chronic bronchitis Carpal tunnel syndrome Asthma Anemia Seasonal allergies Surgical History H/O lithotripsy H/O prior ablation treatment History of appendectomy History of carpal tunnel surgery Family History Mother Anxiety Depression Heart disease Mental disorder Severe allergy Pacemaker Father High cholesterol Cancer lung/lymphoma Aunt Arthritis Cancer lymphoma Stomach cancer maternal aunt Aunt Cancer Sister Depression Mental disorder Hypertension Brother Cancer lymphoma Depression Mental disorder Grandmother Heart disease Severe allergy Cancer in stomach Grandfather Suicide Social History adopted: No household members: spouse number of children: 3 current occupational status: employed current occupation: [employer] current occupational exposures/hazards: No pets and animals: No leisure activities: clubs, art, fishing, reading and volunteer work history of recent travel: No sexually active: Yes Smoking Status: Former smoker Tobacco: How many years used: 2 alcohol intake: current alcohol intake frequency: holidays/special occasions only Alcohol type: wine substance use type: does not use diet: lactose free and low salt well-balanced diet: rarely or never caffeine: Yes Type: carbonated beverages, coffee and tea eating out: other during the past year weight has: increased > 10 lbs what type of physical activity do you participate in: walking seatbelt use: always do you feel safe at home: Yes HPI Consult D C Details: POLINA THOMSON is a 59 year old who presents for postmenopausal bleeding. she had an ablation 20 years ago. At her annual she had some bleeding and then she had some more bleeding with physical activity. she has some pelvic pressure at times. she co chronic constipation. Female Reproductive History Menopausal Symptoms: No night sweats History 3 Elective abortions Hx Para 3 Spontaneous abortions Hx # Term Pregnancies Ectopic pregnancies Hx # Pregnancies Multiple births # of living children 3 Past Pregnancies Del. Date Name GA/Weeks Outc (more content not included)... Normal [facility] Gastroenterology Visit Repor ton 12-28-2024 Gastroenterology Visit Report [facility] [address] [place] [address] OFFICE VISIT Date of Service: 12/28/24 MR#: [id number] Acct: [id number] Name: POLINA THOMSON Rep #: [id number] : 1965 Provider: LETICIA Ham Age/Sex: 59/F Location: [facility] Status: Signed Intake Vital Signs 11/29/24 05:40 Height 5 ft 7 in Intake Visit Reasons: Medication issues Chief Complaint: epigastirc pain and bloating Allergies perfume Allergy (Verified 11/24/24 13:31) throat swelling Medications ???Medication ???Instructions ???Recorded ???Confirmed ???Type ibuprofen 600 mg tablet 600 mg PO Q6H PRN PRN Pain Score 0 02/05/20 11/29/24 Rx 1-05/25 #20 tabs mecobalamin (vitamin B12) 500 mcg mcg PO 09/08/24 11/23/24 History chewable tablet propranolol 60 mg capsule,24 60 mg PO QHS 09/08/24 11/29/24 His tory hr,extended release uptkvkdk-end-ztztf ac 400 tab PO 11/08/24 11/23/24 History mcg-calcium carb 500 mg-vit K1 20 mcg tablet (Women's 50 Plus Multivitamin) sennosides 8.6 mg capsule (senna) 8.6 mg PO QDAY PRN constipation 0 11/08/24 12/28/24 History vit C 180 mg-D3 10 mcg-zinc 5.5 cap PO 11/08/24 12/28/24 History cz-rsxjgo-pklimvb-ging er-herb capsule (Immune Support (vit c, d and zinc)) sumatriptan succinate 25 mg tablet See Rx Instructions PO .COMPLEX 11/29/24 11/29/24 History (Imitrex) PRN migraine headache venlafaxine 75 mg capsule,extended 75 mg PO QHS 11/29/24 11/29/24 H istory release 24 hr vonoprazan 10 mg tablet (Voquezna) 10 mg PO QDAY #30 tabs 12/13/24 12/28/24 Rx famotidine 40 mg tablet 40 mg PO QDAY PRN eructation #30 0 12/28/24 Rx tabs Nurse's Note: OV 12/28/24 Pt here for a f/u and reports gas, bloating, and constipation. Pt reports a bm daily but feels she has to strain at times depending on what she eats. Pt reports her lower back hurts when she gets constipated. She continues taking Voquezna daily and feels that is helping with indigestion. [facility] Medical History (Updated 12/28/24 @ 07:42 by LETICIA Ham) Wears glasses Depression Anxiety Fatty liver Injury of head and neck Loss of consciousness Dietary restriction History of IBS Non-smoker Blood glucose elevated Hyperlipidemia Anxiety and depression Chronic constipation Greater trochanter fracture Palpitations with regular cardiac rhythm Vaginal delivery Horseshoe kidney Vision problems Skin cancer GERD (gastroesophageal reflux disease) Kidney stones IBS (irritable bowel syndrome) High cholesterol Hypertension Hearing problem Migraines Frequent headaches Gastrointestinal problem Emotional problems Chronic bronchitis Carpal tunnel syndrome Asthma Anemia Seasonal allergies Surgical History H/O lithotripsy H/O prior ablation treatment History of appendectomy History of carpal tunnel surgery Family History Mother Anxiety Depression Heart disease Mental disorder Severe allergy Pacemaker Father High cholesterol Cancer lung/lymphoma Aunt Arthritis Cancer lymphoma Stomach cancer maternal aunt Aunt Cancer Sister Depression Mental disorder Hypertension Brother Cancer lymphoma Depression Mental disorder Grandmother Heart disease Severe allergy Cancer in stomach Grandfather Suicide Social History adopted: No household members: spouse number of children: 3 current occupational status: employed current occupation: [employer] current occupational exposures/hazards: No pets and animals: No leisure activities: clubs, art, fishing, reading and volunteer work history of recent travel: No sexually active: Yes Smoking Status: Former smoker Tobacco: How many years used: 2 alcohol intake: current alcohol intake frequency: holidays/special occasions only Alcohol type: wine substance use type: does not use diet: lactose free and low salt well-balanced diet: rarely or never caffeine: Yes Type: carbonated beverages, coffee and tea eating out: other during the past year weight has: increased > 10 lbs what type of physical activity do you participate in: walking seatbelt use: always do you feel safe at home: Yes Female Reproductive History Menstrual Date of menopause: 12/14/16 HPI HPI Chief Complaint: epigastirc pain and bloating Details: POLINA THOMSON, is a 59 F who presents to the office today for f/u. BGI established Sep 2024 with GI issues for many years. Worsening over the past few months with abd distenetion, early satiety, n/v, heartbrun and constipation. Hx of taki (more content not included)... Normal [facility] Gastroenterology Visit Repor ton 12-13-2024 Gastroenterology Visit Report [facility] [address] [place] [address] OFFICE VISIT Date of Service: 12/13/24 MR#: [id number] Acct: [id number] Name: POLINA THOMSON Rep #: [id number] : 1965 Provider: LETICIA Ham Age/Sex: 59/F [place] [facility] [place] Status: Signed Intake Vital Signs 02/15/23 14:49 11/29/24 05:40 Height 5 ft 7 in 5 ft 7 in Intake Visit Reasons: 2 M FU Chief Complaint: epigastirc pain and bloating Allergies perfume Allergy (Verified 11/24/24 13:31) throat swelling Patient : No Nurse's Note: OV 12.13.24 Pt here for f/u and reports constipation, abdominal pain, gas and bloating. Pt reports she is taking senna less due to diet change but still has mild constipation. She reports indigestion, gas and bloating after most meal. [facility] Medical History (Updated 12/13/24 @ 08:14 by LETICIA Ham) Wears glasses Depression Anxiety Fatty liver Injury of head and neck Loss of consciousness Dietary restriction History of IBS Non-smoker Blood glucose elevated Hyperlipidemia Anxiety and depression Chronic constipation Greater trochanter fracture Palpitations with regular cardiac rhythm Vaginal delivery Horseshoe kidney Vision problems Skin cancer GERD (gastroesophageal reflux disease) Kidney stones IBS (irritable bowel syndrome) High cholesterol Hypertension Hearing problem Migraines Frequent headaches Gastrointestinal problem Emotional problems Chronic bronchitis Carpal tunnel syndrome Asthma Anemia Seasonal allergies Surgical History H/O lithotripsy H/O prior ablation treatment History of appendectomy History of carpal tunnel surgery Family History Mother Anxiety Depression Heart disease Mental disorder Severe allergy Pacemaker Father High cholesterol Cancer lung/lymphoma Aunt Arthritis Cancer lymphoma Stomach cancer maternal aunt Aunt Cancer Sister Depression Mental disorder Hypertension Brother Cancer lymphoma Depression Mental disorder Grandmother Heart disease Severe allergy Cancer in stomach Grandfather Suicide Social History adopted: No household members: spouse number of children: 3 current occupational status: employed 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 current occupational exposures/hazards: No pets and animals: No leisure activities: clubs, art, fishing, reading and volunteer work history of recent travel: No sexually active: Yes Smoking Status: Former smoker Tobacco: How many years used: 2 alcohol intake: current alcohol intake frequency: holidays/special occasions only Alcohol type: wine substance use type: does not use diet: lactose free and low salt well-balanced diet: rarely or never caffeine: Yes Type: carbonated beverages, coffee and tea eating out: other during the past year weight has: increased > 10 lbs what type of physical activity do you participate in: walking seatbelt use: always do you feel safe at home: Yes Female Reproductive History Menstrual Date of menopause: 12/14/16 HPI HPI Chief Complaint: epigastirc pain and bloating Details: POLINA THOMSON, is a 59 F who presents to the office today for f/u. I established .. with complaints of GI issues over many years. Worsening symptoms over the past few months with abd distention, early satiety, n/v, heartburn and constipation. Endorses weight gain. Taking senna daily for constipation x1 year. Last EGD and colonoscopy in 2019 with normal findings. *Trial Ibsrela, EGD, GES GES 10.04.24; normal EGD 11.29.24; Normal esophagus. - Normal stomach. - Chronic duodenitis. Biopsied. OV 12.13.24 Pt continues with bloating and epigastric pain. She has changed her diet and has had better control of her constipation. She still takes senna on occasion. She had abdominal cramping while taking the Ibsrela so she discontinued it. ROS Const Constitutional: No fatigue, fever(s) or weight change ENT ENT: Positive for difficulty swallowing Cardio Cardiology: Positive for leg pain with exertion Gastro GI: Positive for abdominal pain, bloating, constipation, heartburn, difficulty swallowing and excessive flatus; No belching, change in bowel habits, change in stool character, coffee ground emesis, cramping, diarrhea, feeling full early, incontinent of stools, Vomiting blood/hematemesis, Blood in stool, loose stools, Black,tarry stools, nausea/dyspepsia, pain with swallowing, vomiting or other Musc Musculoskeletal: Positive for muscle cramps, stiffness and leg pain with exertion; No (more content not included)... Normal [facility] EGD Reporton 11-29-2024 EGD Report [facility] Medical Records Department [address] [place] [address] EGD Report MR#: [id number] Acct: [id number] Name: POLINA THOMSON Rep #: [id number] : 1965 59 From: Adria Friend DO PCP: Dr. Willie Adams MD Status:REG [facility] Patient Name: Polina Thomson Procedure Date: 11/29/2024 6:13 AM Date of : 1965 Age: 59 Procedure: Upper GI endoscopy Indications: Epigastric abdominal pain Providers: Adria Cisse DO Referring MD: Willie Adams MD Medicines: Monitored Anesthesia Care Patient Profile: This is a 59 year old female. Refer to note in patient chart for documentation of history and physical. Patient has symptoms of chronic abdominal distention, chronic epigastric abdominal pain, chronic dyspepsia and chronic nausea. Complications: No immediate complications. Procedure: Pre-Anesthesia Assessment: - Prior to the procedure, a History and Physical was performed, and patient medications and allergies were reviewed. The patient is competent. The risks and benefits of the procedure and the sedation options and risks were discussed with the patient. All questions were answered and informed consent was obtained. Patient identification and proposed procedure were verified by the physician in the pre-procedure area. Mental Status Examination: alert and oriented. Airway Examination: normal oropharyngeal airway and neck mobility. Respiratory Examination: clear to auscultation. CV Examination: normal. Prophylactic Antibiotics: The patient does not require prophylactic antibiotics. Prior Anticoagulants: The patient has taken no anticoagulant or antiplatelet agents except for NSAID medication. ASA Grade Assessment: II - A patient with mild systemic disease. After reviewing the risks and benefits, the patient was deemed in satisfactory condition to undergo the procedure. The anesthesia plan was to use monitored anesthesia care (MAC). Immediately prior to administration of medications, the patient was re-assessed for adequacy to receive sedatives. The heart rate, respiratory rate, oxygen saturations, blood pressure, adequacy of pulmonary ventilation, and response to care were monitored throughout the procedure. The physical status of the patient was re-assessed after the procedure. After obtaining informed consent, the endoscope was passed under direct vision. Throughout the procedure, the patient's blood pressure, pulse, and oxygen saturations were monitored continuously. The Endoscope was introduced through the mouth, and advanced to the third part of the duodenum. Small bowel enteroscopy was deemed necessary. The upper GI endoscopy was accomplished without difficulty. The patient tolerated the procedure well. Scope In: 6:55:02 AM Scope Out: 6:57:58 AM Total Procedure Duration Time 0 hours 2 minutes 56 seconds Findings: The examined esophagus was normal. The entire examined stomach was normal. Patchy mild inflammation characterized by congestion (edema) was found in the duodenal bulb. Biopsies were taken with a cold forceps for histology. Verification of patient identification for the specimen was done. Estimated blood loss was minimal. Impression: - Normal esophagus. - Normal stomach. - Chronic duodenitis. Biopsied. Recommendation: - Discharge patient to home. - Resume previous diet. - Continue present medications. - Await pathology results. Procedure Code(s): --- Professional --- 11529, Small intestinal endoscopy, enteroscopy beyond second portion of duodenum, not including ileum; with biopsy, single or multiple CPT copyright 2021 [employer]. All rights reserved. The codes documented in this report are preliminary and upon dental floss packer review may be revised to meet current compliance requirements. Adria Cisse DO 11/29/2024 7:04:06 AM This report has been signed electronically. Number of Addenda: 0 Note Initiated On: 11/29/2024 6:13 AM 11/29/24 0704 Date Adria Cisse DO Cosigner Signature: Date (if indicated) CC: Dr. Willie Adams MD; Adria Cisse DO Date Dictated: 11/29/24612 Date Transcribed: Tent Worker: YARON Signed [facility] MR/POSTOP.Anita 11-29-2024 MR/POSTOP.[facility] Medical Records Department [address] [place] [address] Anesthesia Postop Eval I 11/29/24 0708 MR#: [id number] Acct: [id number] Name: POLINA THOMSON Rep #: [id number] : 1965 59 From: Lele Keys PCP: Dr. Willie Adams MD Status:REG SDC Y Race: C Location: [place] [address] Anesthesia: Postop Eval I Current Vital Signs Temperature: 98 F Pulse Rate: 53 Blood Pressure: 107/61 Respiratory Rate: 16 Pulse Ox: 95 Oxygen Delivery Method: Room Air Assessment Airway patent: Yes Spontaneous unlabored respirations: Yes Mental status: Awake and Calm nausea: No Vomiting: No Anesthesia Complication: No Fluid Hydration Crystalloid volume administer (ml): 30 Total IV fluid infused: 30 Progress Note Anesthesia document: Postop Eval 1 completed: Yes 11/29/24 07 Date Lele Valenciaignbigg Signature: Date CC: Signed Normal [facility] MR/AIATIDAZ2pc 11-29-2024 /[facility] Medical Records Department [address] [place] [address] Anesthesia Postop Eval II 11/29/24729 MR#: [id number] Acct: [id number] Name: POLINA THOMSON Rep #: [id number] : 1965 59 From: Michael Grier MD PCP: Dr. Willie Adams MD Status:REG [facility] Y Race: C Location: [place] [address] Anesthesia Postop Eval I Sum Postop Eval Completion status Anesthesia document: Postop Eval 1 completed: Yes Anesthesia Postop Eval I Summary Anesthesia Postop Eval I Summary: Anesthesia Postop Eval I: Assessment Summary Airway patent Yes 11/29/24 07:09 [email or web address] Spontaneous unlabored Yes 11/29/24 07:09 [email or web address] respirations Mental status Awake,Calm 11/29/24 07:09 [email or web address] nausea No 11/29/24 07:09 [email or web address] Vomiting No 11/29/24 07:09 [email or web address] Anesthesia Postop Eval I: Fluid Summary Crystalloid volume administer 30 11/29/24 07:09 [email or web address] (ml) Colloids volume administered ( ml) Blood Product volume administered (ml) Total IV fluid infused 30 11/29/24 07:09 [email or web address] Anesthesia Postop Eval I: Summary Notes Anesthesia Complication No 11/29/24 07:09 [email or web address] Anesthesia Complication Comment: Post-operative progress note Anesthesia: Postop Eval II Evaluation Mental status: Awake Pain Level: 0 nausea: No Vomiting: No 11/29/24729 Date Michael Wen Signature: Date CC: Signed Normal [facility] Surgery Specimen Level Mateo 11-29-2024 Surgery Specimen Level IV ---- Patient Age/Sex Location Account Attending Physician ---- POLINA THOMSON 59/F EN [id number] Adria Cisse DO ---- Specimen: [id number] Received: 11/29/24 Status: AKIN Arvizu Num: [id number] Spec Type: EGD BIOPSY Subm Dr: Adria Cisse DO HEADER OPERATION: EGD with biopsy PRE-OP DIAGNOSIS: Gastroesophageal reflux disease TISSUE SUBMITTED: A- Duodenum biopsy ---- MICROSCOPIC DIAGNOSIS A. Small bowel, duodenum, biopsy: * Normal villous architecture with Pravin gland hyperplasia and gastric mucin cell metaplasia, suggestive of peptic injury. * Negative for increased intraepithelial lymphocytes. MICROSCOPIC DESCRIPTION Slides are reviewed. GROSS DESCRIPTION A. Received in formalin in a container labeled with the patient's name, date of , and duodenum biopsy are multiple calles-pink fragments of mucosal tissue measuring 0.8 x 0.6 x 0.2 cm in aggregate. Submitted in toto in A1. [facility] 12/13/2024 CPT:64276 ---- Patient Age/Sex Location Account Attending Physician ---- POLINA THOMSON/F EN [id number] Adria Cisse DO ---- Signed (signature on file) Dr. Martha Smith MD 12/13/24820 ---- Normal [facility] Comment on above: Performed By: #### P SUIV #### [facility] Laboratory [address] [place], [address] Laboratory - Chemistry and C hemistry - challengeOrdered By: Sharon Whiting on 11-23-2024 HCG ( test) Ql (U) Negative [facility] [employer] Office Visit Reporton 11-23-2024 [employer] Office Visit Report [facility] [address], [address] [place] [address] OFFICE VISIT Date of Service: 11/23/24 MR#: [id number] Acct: [id number] Name: POLINA THOMSON Rep #: [id number] : 1965 Provider: NIKOLE gleason Age/Sex: 59/F Location: [facility] Status: Signed Intake Vital Signs 11/09/24 08:06 11/23/24 15:14 11/23/24 15:14 Height 5 ft 7 in 5 ft 7 in 5 ft 7 in Weight: 196 lb 6 oz 192 lb BMI 30.7 30.0 BP 122/80 H 133/81 H Intake Visit Reasons: EMB Vp Of Digital Marketing Required: No Is patient in pain?: No Allergies perfume Allergy (Verified 11/23/24 15:17) throat swelling Medications ???Medication ???Instructions ???Recorded ???Confirmed ???Type ibuprofen 600 mg tablet 600 mg PO Q6H PRN PRN Pain Score 0 02/05/20 11/23/24 Rx -05/25 #20 tabs mecobalamin (vitamin B12) 500 mcg mcg PO 09/08/24 11/23/24 History chewable tablet propranolol 60 mg capsule,24 60 mg PO QDAY 09/08/24 11/23/24 Hi story hr,extended release mgwfwjzs-uxt-zvzqi ac 400 tab PO 11/08/24 11/23/24 History mcg-calcium carb 500 mg-vit K1 20 mcg tablet (Women's 50 Plus Multivitamin) sennosides 8.6 mg capsule (senna) 8.6 mg PO QDAY PRN 11/08/2411/23 History sumatriptan succinate 25 mg tablet See Rx Instructions PO .COMPLEX 11/08/24 11/23/24 Rx (Imitrex) #14 tabs turmeric,curcumin,ging er,vitamin PO 11/08/24 11/23/24 History venlafaxine 75 mg capsule,extended 75 mg PO QDAY #90 caps 11/08/24 11/23/24 Rx release 24 hr vit C 180 mg-D3 10 mcg-zinc 5.5 cap PO 11/08/24 11/23/24 History qo-qejonb-bgxrnmm-ging er-herb capsule (Immune Support (vit c, d and zinc)) [facility] Medical History Blood glucose elevated Hyperlipidemia Anxiety and depression Chronic constipation Greater trochanter fracture Palpitations with regular cardiac rhythm Vaginal delivery Horseshoe kidney Vision problems Skin cancer GERD (gastroesophageal reflux disease) Kidney stones IBS (irritable bowel syndrome) High cholesterol Hypertension Hearing problem Migraines Frequent headaches Gastrointestinal problem Emotional problems Chronic bronchitis Carpal tunnel syndrome Asthma Anemia Seasonal allergies Surgical History H/O lithotripsy H/O prior ablation treatment History of appendectomy History of carpal tunnel surgery Family History Mother Anxiety Depression Heart disease Mental disorder Severe allergy Pacemaker Father High cholesterol Cancer lung/lymphoma Aunt Arthritis Cancer lymphoma Stomach cancer maternal aunt Aunt Cancer Sister Depression Mental disorder Hypertension Brother Cancer lymphoma Depression Mental disorder Grandmother Heart disease Severe allergy Cancer in stomach Grandfather Suicide Social History adopted: No household members: spouse number of children: 3 current occupational status: employed current occupation: [employer] current occupational exposures/hazards: No pets and animals: No leisure activities: clubs, art, fishing, reading and volunteer work history of recent travel: No sexually active: Yes Smoking Status: Former smoker Tobacco: How many years used: 2 alcohol intake: current alcohol intake frequency: holidays/special occasions only Alcohol type: wine substance use type: does not use diet: lactose free and low salt well-balanced diet: rarely or never caffeine: Yes Type: carbonated beverages, coffee and tea eating out: other during the past year weight has: increased > 10 lbs what type of physical activity do you participate in: walking seatbelt use: always do you feel safe at home: Yes History 3 Elective abortions Hx Para 3 Spontaneous abortions Hx # Term Pregnancies Ectopic pregnancies Hx # Pregnancies Multiple births # of living children 3 Past Pregnancies Del. Date Name GA/Weeks Outcome Route Bth Weight Infant Gen Labor Lgth Anesthesia Del Locatn Provider FOB Unknown 1985 Guille Unknown 1986 Selvin Unknown 1992 Vandana HPI EMB Details: POLINA THOMSON is a 59 year old who presents for endometrial biopsy. She had brown discharge in vaginal when her for annual exam with Tiffany Lucio NP on October 21. She denies bleeding. She had US that indicated 4mm lining. She has history of ablation and no menses since 2017 ROS Const Constitutional: Reports system reviewed and no additional complaints, except as documented Eyes Eyes: Reports system reviewed and no additional compl (more content not included)... Normal [facility] Surgery Specimen Level Mateo 11-23-2024 Surgery Specimen Level IV ---- Patient Age/Sex Location Account Attending Physician ---- POLINA THOMSON 59/F LABSPEC [id number] NIKOLE Pereira ---- Specimen: [id number] Received: 11/23/24 Status: AKIN Arvizu Num: [id number] Spec Type: ILIANA BX/C Kapil Dr: NIKOLE Pereira HEADER OPERATION: Endometrial biopsy PRE-OP DIAGNOSIS: Postmenopausal bleeding TISSUE SUBMITTED: A- Endometrial lining ---- MICROSCOPIC DIAGNOSIS A. Uterus, endometrial lining, biopsy: * Cystic atrophy. MICROSCOPIC DESCRIPTION Slides are reviewed. GROSS DESCRIPTION A. Received in formalin in a container labeled with the patient's name, date of , and with no further designation are multiple red-calles fragments of soft tissue admixed with blood and mucus measuring 2.0 x 1.0 x 0.2 cm in aggregate. Submitted in toto in A1. [facility] 12/01/2024 CPT:52276 ---- Patient Age/Sex Location Account Attending Physician ---- POLINA THOMSON 59/F LABSPEC [id number] NIKOLE Pereira ---- Signed (signature on file) Dr. Martha Smith MD 12/01/24 1716 ---- Normal [facility] Comment on above: Performed By: #### P MARYAM ####[facility] [address] [place], [place], [address] PAP IG HPV APTIMA 16/18,45on 11-13-2024 ADEQ Comment Normal . [facility] Comment on above: Order Comment: Speci men Comment: [id number] Comment: Source.............CervixSpecimen Comment: Other..............Post MenopausalSpecimen Comment: No. of containers..01 ThinPrep Vial Result Comment: Sati sfactory for evaluation. Endocervical and/or squamous metaplastic cells (endocervical component) are present. Performed By: #### L 7400.0280 ####[facility] [address] [place], [address] COMM . Normal . [facility] Comment on above: Order Comment: Speci men Comment: [id number] Comment: Source.............CervixSpecimen Comment: Other..............Post MenopausalSpecimen Comment: No. of containers..01 ThinPrep Vial Performed By: #### L 7400.0280 ####[facility] [address] [place], [place], [address] COMMENT Comment Normal . [facility] Comment on above: Order Comment: Speci men Comment: [id number] Comment: Source.............CervixSpecimen Comment: Other..............Post MenopausalSpecimen Comment: No. of containers..01 ThinPrep Vial Result Comment: This liquid based ThinPrep(R) pap test was screened with the use of an image guided system. Performed By: #### L 7400.0280 ####[facility] [address] [place], [place], [address] DIAG Comment Normal . [facility] Comment on above: Order Comment: Speci men Comment: [id number] Comment: Source.............CervixSpecimen Comment: Other..............Post MenopausalSpecimen Comment: No. of containers..01 ThinPrep Vial Result Comment: NEGA TIVE FOR INTRAEPITHELIAL LESION OR MALIGNANCY. Performed By: #### L 7400.0280 ####[facility] [address] [place], [place], [id number] HPV APTIMA, HR Negative Normal Negative [facility] Comment on above: Order Comment: Speci men Comment: [id number] Comment: Source.............CervixSpecimen Comment: Other..............Post MenopausalSpecimen Comment: No. of containers..01 ThinPrep Vial Result Comment: This nucleic acid amplification test detects fourteen high- risk HPV types (16,18,31,33,35,39,45,51,52,56,58,59,66,68) without differentiation. Performed By: #### L 7400.0280 ####[facility] [address] [facility] [place], [place], [address] HPV Anum Rfx Comment Normal . [facility] Comment on above: Order Comment: Speci men Comment: [id number] Comment: Source.............CervixSpecimen Comment: Other..............Post MenopausalSpecimen Comment: No. of containers..01 ThinPrep Vial Result Comment: Crit eria not met, HPV Genotype not performed. Performed at: [address] [id number] Department Specialist: Denisse Cheney MD, Phone: [phone] Performed at: =[address] [id number] Department Specialist: Denisse Cheney MD, Phone: [phone] Performed By: #### L 7400.0280 ####[facility] [address] [place], [place], [id number] PAPSMR Comment Normal . [facility] Comment on above: Order Comment: Speci men Comment: [id number] Comment: Source.............CervixSpecimen Comment: Other..............Post MenopausalSpecimen Comment: No. of containers..01 ThinPrep Vial Result Comment: The Pap smear is a screening test designed to aid in the detection of premalignant and malignant conditions of the uterine cervix. It is not a diagnostic procedure and should not be used as the sole means of detecting cervical cancer. Both false-positive and false-negative reports do occur. Performed By: #### L 7400.0280 ####[facility] [address] [place], [place], [address] PERFORM Comment Normal . [facility] Comment on above: Order Comment: Speci men Comment: [id number] Comment: Source.............CervixSpecimen Comment: Other..............Post MenopausalSpecimen Comment: No. of containers..01 ThinPrep Vial Result Comment: Patricia Hagen, Manager Supply Chain (ASCP) Performed By: #### L 7400.0280 ####[facility] [address] [place], [place], [address] Pelvic w/ Transvaginalon Pelvic w/ Transvaginal [facility] Imaging Services [address] [place], [place] [id number] Pelvic w/ Transvaginal MR#: [id number] Acct: [id number] Name: POLINA THOMSON Rep #: [id number] : 1965 F 59 From: Ariel moody MD PCP: Dr. Willie Adams MD Status: REG CLI Study: Pelvic w/ Transvaginal Date of Exam: 11/13/24 Exam# [id number] Ordering Dr: Fadia Lucio PHARMACY RESIDENT-Tiffany PROCEDURE: PELVIC W/ TRANSVAGINAL REASON FOR EXAM: PMB TECHNIQUE: Transabdominal and transvaginal pelvic ultrasound COMPARISON: Prior study dated February 05, 2020. FINDINGS: Measurements: Uterus: 9.1 cm x 5.3 cm x 2.8 cm with a volume of 72.14 mL Endometrial Thickness: 4 mm. This is slightly thickened. Right Ovary: Nonvisualized. Left Ovary: Nonvisualized. TRANSABDOMINAL: Uterus: Normal size, myometrial echotexture, and contour. Endometrium: It measures 4 mm. Slightly thickened for patient's age. Right ovary: Not visualized. Left ovary: Not visualized. Transvaginal sonography was performed to better visualize the endometrium. TRANSVAGINAL: Uterus: Unremarkable. Endometrium: Slightly thickened endometrium. Right ovary: Not visualized. Left ovary: Not visualized. Other adnexal findings: None. Cul-de-sac: No free intraperitoneal fluid identified. US/Pelvic w/ Transvaginal IMPRESSION: Mild thickening of the endometrium at 4 mm. The ovaries were not visualized. Reading Location: [facility] CC: NIKOLE Lucio; Dr. Willie Adams MD Tent Worker: Signed Normal [facility] Hemoglobin A1con 11-10-2024 HbA1c (Bld) [Mass fraction] 5.6 % Low <=5.6 [facility] Comment on above: Performed By: #### L 501.9985 ####[facility] [address] [place], [address] Absolute lymphocyte countOrd ered By: Willie Adams on 11-09-2024 Lymphocytes Auto (Unsp spec) [#/Vol] 1.89 10*3/uL 0.83-4.51 [facility] Absolute neutrophil countOrd ered By: Willie Adams on 11-09-2024 Neutrophils (Bld) [#/Vol] 3.1 10*3/uL 2.0-7.7 [facility] Anion gap in Serum or Plasma Ordered By: Willie Adams on 11-09-2024 Anion gap [Moles/Vol] 11 mmol/L 5-15 [facility] Automated lymphocyte count a s percentage of total leukocytesOrdered By: Willie Adams on 11-09-2024 Lymphocytes/100 WBC Auto (Unsp spec) 33.5 % - [facility] BUN/creatinine ratioOrdered By: [facility] Adams on 11-09-2024 Urea nitrogen/Creatinine [Mass ratio] 14.8 mg/mg 10- [facility] Basophil percentageOrdered B y: Willie Adams on 11-09-2024 Basophils/100 WBC (Bld) 1.2 % High 0-1 [facility] Bilirubin, totalOrdered By: Willie Adams on 11-09-2024 Bilirubin [Mass/Vol] 0.35 mg/dL 0.00-1.30 [facility] CBC W/Diff, Automatedon 10-15 Absolute Lymph 1.89 X10 3/uL Normal 0.83-4.51 [facility] Comment on above: Performed By: #### L 506.0400, L100.0100, L500.4050, L500.4100, L501.9520 #### [facility] Laboratory [address] [place], [address] Absolute Neut 3.1 X10 3/uL Normal 2.0-7.7 [facility] Comment on above: Performed By: #### L 506.0400, L100.0100, L500.4050, L500.4100, L501.9520 #### [facility] Laboratory [address] [place], [address] Basophils/100 WBC (Bld) 1.2 % High 0-1 [facility] Comment on above: Performed By: #### L 506.0400, L100.0100, L500.4050, L500.4100, L501.9520 #### [facility] Laboratory [address] [place], [address] Eosinophils/100 WBC (Bld) 2.5 % Normal 0-5 [facility] Comment on above: Performed By: #### L 506.0400, L100.0100, L500.4050, L500.4100, L501.9520 #### [facility] Laboratory [address] [place], [address] Erythrocyte distribution width (RBC) [Ratio] 12.1 % Normal 11.6-14.6 [facility] Comment on above: Performed By: #### L 506.0400, L100.0100, L500.4050, L500.4100, L501.9520 #### [facility] Laboratory [address] [place], [address] Hematocrit (Bld) [Volume fraction] 41.8 % Normal 37-47 [facility] Comment on above: Performed By: #### L 506.0400, L100.0100, L500.4050, L500.4100, L501.9520 #### [facility] [address] [place], [address] Hemoglobin (Bld) [Mass/Vol] 13.9 g/dL Normal 12.0-15.0 [facility] Comment on above: Performed By: #### L 506.0400, L100.0100, L500.4050, L500.4100, L501.9520 #### [facility] [address] [place], [address] IG% 0.200 Normal 0.0-0.9 [facility] Comment on above: Result Comment: IG% - Immature Granulocytes (promyelocytes, myelocytes and metamyelocytes) > 1% indicates that a LEFT SHIFT is Present. Performed By: #### L 506.0400, L100.0100, L500.4050, L500.4100, L501.9520 #### [facility] [address] [place], [address] Lymphocytes/100 WBC (Bld) 33.5 % Normal 19-41 [facility] Comment on above: Performed By: #### L 506.0400, L100.0100, L500.4050, L500.4100, L501.9520 #### [facility] [address] [place], [address] MCH (RBC) [Entitic mass] 30.5 pg Normal 27.0-32.0 [facility] Comment on above: Performed By: #### L 506.0400, L100.0100, L500.4050, L500.4100, L501.9520 #### [facility] [address] [place], [address] MCHC (RBC) [Mass/Vol] 33.3 g/dL Normal 32-36 [facility] Comment on above: Performed By: #### L 506.0400, L100.0100, L500.4050, L500.4100, L501.9520 #### [facility] [address] [place], [address] MCV (RBC) [Entitic vol] 91.9 fL Normal 81-99 [facility] Comment on above: Performed By: #### L 506.0400, L100.0100, L500.4050, L500.4100, L501.9520 #### [facility] [address] [place], [address] Monocytes/100 WBC (Bld) 7.6 % Normal 0-10 [facility] Comment on above: Performed By: #### L 506.0400, L100.0100, L500.4050, L500.4100, L501.9520 #### [facility] [address] [place], [address] Neutrophils/100 WBC (Bld) 55.0 % Normal 47-70 [facility] Comment on above: Performed By: #### L 506.0400, L100.0100, L500.4050, L500.4100, L501.9520 #### [facility] [address] [place], [address] Nucleated RBC (Bld) [#/Vol] 0 10*3/uL Normal 0-5 [facility] Comment on above: Performed By: #### L 506.0400, L100.0100, L500.4050, L500.4100, L501.9520 #### [facility] [address] [place], [address] Platelet mean volume (Bld) [Entitic vol] 10.0 fL Normal 6.2-12.0 [facility] Comment on above: Performed By: #### L 506.0400, L100.0100, L500.4050, L500.4100, L501.9520 #### [facility] [address] [place], [address] Platelets (Bld) [#/Vol] 242 10*3/uL Normal 150-450 [facility] Comment on above: Performed By: #### L 506.0400, L100.0100, L500.4050, L500.4100, L501.9520 #### [facility] [address] [place], [address] RBC (Bld) [#/Vol] 4.55 10*6/uL Normal 4.2-5.4 [facility] Comment on above: Performed By: #### L 506.0400, L100.0100, L500.4050, L500.4100, L501.9520 #### [facility] [address] [place], [address] RDW SD 40.3 fl Normal 35.1-43.9 [facility] Comment on above: Performed By: #### L 506.0400, L100.0100, L500.4050, L500.4100, L501.9520 #### [facility] [address] [place], [place], [address] WBC (Bld) [#/Vol] 5.6 10*3/uL Normal 4.4-11.0 [facility] Comment on above: Performed By: #### L 506.0400, L100.0100, L500.4050, L500.4100, L501.9520 #### [facility] [address] [place], [place], [address] Calculated very low density lipoprotein (VLDL) cholesterol measurementOrdered By: Willie dAams on 11-09-2024 Calculated very low density lipoprotein (VLDL) cholesterol measurement 29 mg/dL [facility] VLDL Cholesterol 29 mg/dL [facility] Carbon dioxide, total [Moles /volume] in Central venous bloodOrdered By: Willie Adams on 11-09-2024 CO2 [Moles/Vol] 23.7 mmol/L 21.0-32.0 [facility] Cervical or vaginal specimen microscopic examination by liquid based cytology (reportOrdered By: Fadia Lucio on 11-09-2024 Cytology report Cyto stain.thin prep Doc (Cvx/Vag) Comment . [facility] Comment on above: Criteria not met, HP V Genotype not performed.Performed at: - [address] [id number] Director: Denisse Cheney MD, Phone: [phone] at: = - [address] [id number] Director: Denisse Cheney MD, Phone: [phone] Cervical or vagninal specime n microscopic examination by cytology stain (reported asOrdered By: Fadia Lucio on 11-09-2024 Cytology report Cyto stain Doc (Cvx/Vag) Comment . [facility] Comment on above: The Pap smear is a s creening test designed to aid in thedetection of premalignant and malignant conditions of theuterine cervix. It is not a diagnostic procedure andshould not be used as the sole means of detecting cervicalcancer. Both false-positive and false-negative reports dooccur. Chloride assayOrdered By: Mike Adams on 11-09-2024 Chloride [Moles/Vol] 106 mmol/L 98-108 [facility] Comprehensive Metabolic Prof ilon 11-09-2024 Albumin [Mass/Vol] 4.4 g/dL Normal 3.5-5.0 [facility] Comment on above: Performed By: #### L 506.0400, L100.0100, L500.4050, L500.4100, L501.9520 ####[facility] [address] [place], [address] Albumin/Globulin [Mass ratio] 1.7 {ratio} Normal 0.9-2.4 [facility] Comment on above: Performed By: #### L 506.0400, L100.0100, L500.4050, L500.4100, L501.9520 ####[facility] [address] [place], [address] ALK PHOS 92 U/L Normal 35-104 [facility] Comment on above: Performed By: #### L 506.0400, L100.0100, L500.4050, L500.4100, L501.9520 ####[facility] [address] [place], [address] ALT [Catalytic activity/Vol] 14 U/L Normal <=34 [facility] Comment on above: Performed By: #### L 506.0400, L100.0100, L500.4050, L500.4100, L501.9520 ####[facility] [address] [place], [address] AST [Catalytic activity/Vol] 20 U/L Normal <=31 [facility] Comment on above: Performed By: #### L 506.0400, L100.0100, L500.4050, L500.4100, L501.9520 ####[facility] [address] [place], [address] Bilirubin [Mass/Vol] 0.35 mg/dL Normal 0.00-1.30 [facility] Comment on above: Performed By: #### L 506.0400, L100.0100, L500.4050, L500.4100, L501.9520 ####[facility] [facility] [address] [place], [address] BUN/CRE 14.8 RATIO Normal 10-20 [facility] Comment on above: Performed By: #### L 506.0400, L100.0100, L500.4050, L500.4100, L501.9520 ####[facility] [address] [place], [address] Calcium [Mass/Vol] 9.5 mg/dL Normal 7.6-11.0 [facility] Comment on above: Performed By: #### L 506.0400, L100.0100, L500.4050, L500.4100, L501.9520 ####[facility] [address] [place], [address] Chloride [Moles/Vol] 106 mmol/L Normal 98-108 [facility] Comment on above: Performed By: #### L 506.0400, L100.0100, L500.4050, L500.4100, L501.9520 ####[facility] [address] [place], [address] CO2 [Moles/Vol] 23.7 mmol/L Normal 21.0-32.0 [facility] Comment on above: Performed By: #### L 506.0400, L100.0100, L500.4050, L500.4100, L501.9520 ####[facility] [address] [place], [address] Creatinine [Mass/Vol] 1.05 mg/dL Normal 0.70-1.20 [facility] Comment on above: Performed By: #### L 506.0400, L100.0100, L500.4050, L500.4100, L501.9520 ####[facility] [address] [place], [address] GAP 11 Normal 5-15 [facility] Comment on above: Performed By: #### L 506.0400, L100.0100, L500.4050, L500.4100, L501.9520 ####[facility] [address] [place], [address] GFR/1.73 sq M.predicted among non-blacks MDRD (S/P/Bld) [Vol rate/Area] 62 mL/min/{1.73_m2} Normal >60 [facility] Comment on above: Result Comment: mL/m in/1.73m2 CKD-EPI Creatinine Equation (2020) Performed By: #### L 506.0400, L100.0100, L500.4050, L500.4100, L501.9520 ####[facility] [address] [place], [address] Globulin (S) [Mass/Vol] 2.7 g/dL Normal 2.2-4.2 [facility] Comment on above: Performed By: #### L 506.0400, L100.0100, L500.4050, L500.4100, L501.9520 ####[facility] [address] [place], [address] Glucose [Mass/Vol] 104 mg/dL High 70-99 [facility] Comment on above: Performed By: #### L 506.0400, L100.0100, L500.4050, L500.4100, L501.9520 ####[facility] [address] [place], [address] Potassium [Moles/Vol] 4.5 mmol/L Normal 3.3-5.1 [facility] Comment on above: Performed By: #### L 506.0400, L100.0100, L500.4050, L500.4100, L501.9520 ####[facility] [address] [place], [address] Sodium [Moles/Vol] 140 mmol/L Normal 133-145 [facility] Comment on above: Performed By: #### L 506.0400, L100.0100, L500.4050, L500.4100, L501.9520 ####[facility] [address] [place], [address] T PROT 7.1 g/dL Normal 5.9-8.4 [facility] Comment on above: Performed By: #### L 506.0400, L100.0100, L500.4050, L500.4100, L501.9520 ####[facility] [address] [place], [address] Urea nitrogen [Mass/Vol] 16 mg/dL Normal 4-19 [facility] Comment on above: Performed By: #### L 506.0400, L100.0100, L500.4050, L500.4100, L501.9520 ####[facility] [address] [place], [address] Construction Project Assistant Cyto stain Nom (C vx/Vag) [ID]Ordered By: Fadia Lucio on 11-09-2024 Pap Smear Performed By Comment . [facility] Comment on above: Tiffany Chavez ytotechnologist (ASCP) Cytology report Cyto stain D oc (Cvx/Vag)Ordered By: Fadia Lucio on 11-09-2024 Thin Prep Pap Smear Comment . [facility] Comment on above: The Pap smear is a s creening test designed to aid in thedetection of premalignant and malignant conditions of theuterine cervix. It is not a diagnostic procedure andshould not be used as the sole means of detecting cervicalcancer. Both false-positive and false-negative reports dooccur. Cytology report Cyto stain.t hin prep Doc (Cvx/Vag)Ordered By: Fadia Lucio on 11-09-2024 HPV Genotype Special Info Comment . [facility] Comment on above: Criteria not met, HP V Genotype not performed.Performed at: - [facility] [id number] Director: Denisse Cheney MD, Phone: [phone] at: =G - [facility] [address] [id number] Director: Denisse Cheney MD, Phone: [phone] Detection in cervical specim en of any of human papilloma virus (HPV) 16, 18, 31, 33,Ordered By: Fadia Lucio on 11-09-2024 HPV 16+18+31+33+35+39+45+51+ 52+56+58+59+66+68 DNA Probe+sig amp Ql (Cvx) Negative Negative [facility] Comment on above: This nucleic acid am plification test detects fourteen high-risk HPV types (16,18,31,33,35,39,45,51,52,56,58,59,66,68)without differentiation. Eosinophil percentageOrdered By: Willie Adams on 11-09-2024 Eosinophils/100 WBC (Bld) 2.5 % 0-5 [facility] Erythrocyte distribution wid th ratioOrdered By: Willie Adams on 11-09-2024 Erythrocyte distribution width (RBC) [Ratio] 12.1 % 11.6-14.6 [facility] Erythrocyte distribution wid th standard deviationOrdered By: Willie Adams on 11-09-2024 Erythrocyte distribution width (RBC) [Entitic vol] 40.3 fL 35.1-43.9 [facility] Erythrocyte distribution width (RBC) [Ratio] 40.3 fl 35.1-43.9 [facility] GFR/1.73 sq M.predicted katt g non-blacks MDRD (S/P/Bld) [Vol rate/Area]Ordered By: Willie Adams on 11-09-2024 Estimated GFR (MDRD) Non-Af Amer 62 >60 [facility] Comment on above: mL/min/1.73m2 CKD-EP I Creatinine Equation (2020) Glomerular filtration rate ( GFR) estimation/1.73 sq m using serum, plasma, or whole bOrdered By: Willie Adams on 11-09-2024 GFR/1.73 sq M.predicted among non-blacks MDRD (S/P/Bld) [Vol rate/Area] 62 mL/min/{1.73_m2} >60 [facility] Comment on above: mL/min/1.73m2 CKD-EP I Creatinine Equation (2020) HPV 16+18+31+33+35+39+45+51+ 52+56+58+59+66+68 DNA Probe+sig amp Ql (Cvx)Ordered By: Fadia Lucio on 11-09-2024 Human Papillomavirus High Risk Negative Negative [facility] Comment on above: This nucleic acid am plification test detects fourteen high-risk HPV types (16,18,31,33,35,39,45,51,52,56,58,59,66,68)without differentiation. Hematocrit Auto (Bld) [Volum e fraction]Ordered By: Willie Adams on 11-09-2024 Hematocrit (Bld) [Volume fraction] 41.8 % 37-47 [facility] Hemoglobin A1c percentageOrd ered By: Willie Adams on 11-09-2024 HbA1c (Bld) [Mass fraction] 5.6 % Low >5.7 [facility] Hemoglobin measurementOrdere d By: Willie Adams on 11-09-2024 Hemoglobin (Bld) [Mass/Vol] 13.9 g/dL 12.0-15.0 [facility] Image-guided ThinPrep PapOrd ered By: Fadia Lucio on 11-09-2024 Pap Smear Note Comment . [facility] Comment on above: This liquid based Th inPrep(R) pap test was screened withthe use of an image guided system. Image-guided liquid-based Pa pOrdered By: Fadia Lucio on 11-09-2024 Pap Smear Diagnosis Comment . [facility] Comment on above: NEGATIVE FOR INTRAEP ITHELIAL LESION OR MALIGNANCY. Immature granulocytes/100 WB C Auto (Bld)Ordered By: Willie Adams on 11-09-2024 Immature granulocytes/100 WBC (Bld) 0.200 % 0.0-0.9 [facility] Comment on above: IG% - Immature Granu locytes (promyelocytes, myelocytes and metamyelocytes) > 1% indicates that a LEFT SHIFT is Present. LDL calc ser/plasOrdered By: Willie Adams on 11-09-2024 Cholesterol in LDL [Mass/Vol] 132 mg/dL [facility] Comment on above: Khlbulqqbr=511-343 m g/dL & Higher Kgnn=086 mg/dL or greater LDL Cholesterol, Calculated 132 mg/dL [facility] Comment on above: Gpolrczgkt=170-308 m g/dL & Higher Wwhs=407 mg/dL or greater Laboratory - Chemistry and C hemistry - challengeOrdered By: Willie Adams on 11-09-2024 AST [Catalytic activity/Vol] 20 U/L <32 [facility] Laboratory - CytologyOrdered By: Fadia Lucio on 11-09-2024 Construction Project Assistant Cyto stain Nom (Cvx/Vag) [ID] Comment . [facility] Comment on above: Tiffany Chavez ytotechnologist (ASCP) Laboratory - Miscellaneous t estsOrdered By: Fadia Lucio on 11-09-2024 Service comment (Unsp spec) [Interp] . . [facility] Lipid Profileon 11-09-2024 CHOL:HDL 3.55 Normal [facility] Comment on above: Performed By: #### L 506.0400, L100.0100, L500.4050, L500.4100, L501.9520 #### [facility] Laboratory [address] [facility] [facility] [place], [address] Cholesterol [Mass/Vol] 223 mg/dL High <=200 [facility] Comment on above: Result Comment: Chol esterol level, Desirable <200 mg/dL Borderline high cholesterol 200-239 mg/dL High cholesterol >=240 mg/dL Recommendations of the NCEP Adult Treatment Panel for the following risk-cutoff thresholds for the [place] population. Performed By: #### L 506.0400, L100.0100, L500.4050, L500.4100, L501.9520 #### [facility] [address] [place], [address] Cholesterol in HDL [Mass/Vol] 63 mg/dL Normal [facility] Comment on above: Result Comment: Jacqueline onal Cholesterol Education Program (NCEP) guidelines: <40 mg/dL: Low HDL-cholesterol (major risk factor for CHD) >= 60 mg/dL: High HDL-cholesterol (negative risk factor for CHD) HDL-cholesterol is affected by a number of factors, e.g. smoking, exercise, hormones, sex and age. Performed By: #### L 506.0400, L100.0100, L500.4050, L500.4100, L501.9520 #### [facility] [address] [place], [address] Cholesterol in LDL [Mass/Vol] 132 mg/dL Normal [facility] Comment on above: Result Comment: Bord dzzvqu=555-990 mg/dL Higher Crzb=984 mg/dL or greater Performed By: #### L 506.0400, L100.0100, L500.4050, L500.4100, L501.9520 #### [facility] [address] [place], [address] Cholesterol in VLDL [Mass/Vol] 29 mg/dL Normal 5-40 [facility] Comment on above: Performed By: #### L 506.0400, L100.0100, L500.4050, L500.4100, L501.9520 #### [facility] [address] [place], [address] Triglyceride [Mass/Vol] 143 mg/dL Normal [facility] Comment on above: Result Comment: The drugs N-Acetylcysteine and Metamizole may falsely depress this assay. Normal range: <150 mg/dL Borderline High: 150-199 mg/dL High: 200-499 mg/dL Very High: >500 mg/dL Performed By: #### L 506.0400, L100.0100, L500.4050, L500.4100, L501.9520 #### [facility] [address] [place], [address] Lymphocytes Auto (Unsp spec) [#/Vol]Ordered By: Willie Adams on 11-09-2024 Lymphocytes (Bld) [#/Vol] 1.89 10*3/uL 0.83-4.51 [facility] Lymphocytes/100 WBC Auto (Un sp spec)Ordered By: Willie Adams on 11-09-2024 Lymphocytes/100 WBC (Bld) 33.5 % 19-41 [facility] MCV (mean corpuscular volume ) determinationOrdered By: Willie Adams on 11-09-2024 MCV (RBC) [Entitic vol] 91.9 fL 81-99 [facility] Mean corpuscular hemoglobin (MCH) determinationOrdered By: Joaquinaltairfransisca Adams on 11-09-2024 MCH (RBC) [Entitic mass] 30.5 pg 27.0-32.0 [facility] Mean corpuscular hemoglobin concentration (MCHC) determinationOrdered By: Willie Adams on 11-09-2024 MCHC (RBC) [Mass/Vol] 33.3 g/dL 32-36 [facility] Mean platelet volume determi nationOrdered By: Willie Adams on 11-09-2024 Platelet mean volume (Bld) [Entitic vol] 10.0 fL 6.2-12.0 [facility] Monocyte percentageOrdered B y: Willie Adams on 11-09-2024 Monocytes/100 WBC (Bld) 7.6 % 0-10 [facility] Neutrophil percentageOrdered By: Willie Adams on 11-09-2024 Neutrophils/100 WBC (Bld) 55.0 % 47-70 [facility] No Panel InformationOrdered By: Fadia Lucio on 11-09-2024 Pap Smear Specimen Adequacy Comment . [facility] Comment on above: Satisfactory for nicolas luation. Endocervical and/or squamous metaplasticcells (endocervical component) are present. 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's [address], [address] [place] [address] OFFICE VISIT Date of Service: 11/09/24 MR#: [id number] Acct: [id number] Name: POLINA THOMSON Rep #: [id number] : 1965 Provider: NIKOLE Myles Age/Sex: 59/F Location: [facility] Status: Signed Intake Vital Signs 02/15/23 14:49 11/08/24 17:55 11/09/24 08:06 Height 5 ft 7 in 5 ft 7 in 5 ft 7 in Weight: 197 lb 196 lb 6 oz BMI 30.8 30.7 BP 122/80 H 122/80 H Blood Pressure Location Lt brachial Position Sitting Respiration 16 Pulse 52 L Pulse Source Monitor Temp 97.4 F L Pulse Oximetry (%) 99 Oxygen Delivery Method room air 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 Required: No Is patient in pain?: No Allergies perfume Allergy (Verified 11/09/24 08:08) throat swelling Medications ???Medication ???Instructions ???Recorded ???Confirmed ???Type ibuprofen 600 mg tablet 600 mg PO Q6H PRN PRN Pain Score 0 02/05/20 11/09/24 Rx 1-10/10 #20 tabs mecobalamin (vitamin B12) 500 mcg mcg PO 09/08/24 11/09/24 History chewable tablet propranolol 60 mg capsule,24 60 mg PO QDAY 09/08/24 11/09/24 Hi story hr,extended release vduqzxjn-ufh-wwhkv ac 400 tab PO 11/08/24 11/09/24 History mcg-calcium carb 500 mg-vit K1 20 mcg tablet (Women's 50 Plus Multivitamin) sennosides 8.6 mg capsule (senna) 8.6 mg PO QDAY PRN 11/08/2411/09 History sumatriptan succinate 25 mg tablet See Rx Instructions PO .COMPLEX 11/08/24 11/09/24 Rx (Imitrex) #14 tabs turmeric,curcumin,ging er,vitamin PO 11/08/24 11/09/24 History venlafaxine 75 mg capsule,extended 75 mg PO QDAY #90 caps 11/08/24 11/09/24 Rx release 24 hr vit C 180 mg-D3 10 mcg-zinc 5.5 cap PO 11/08/24 11/09/24 History tg-umeort-zavinsw-ging er-herb capsule (Immune Support (vit c, d and zinc)) Is last menstrual period known: No Post menopausal: Yes Date of menopause: 12/14/16 Patient : No : No PFSH Medical History Hyperlipidemia Anxiety and depression Chronic constipation Greater trochanter fracture Palpitations with regular cardiac rhythm Vaginal delivery Horseshoe kidney Vision problems Skin cancer GERD (gastroesophageal reflux disease) Kidney stones IBS (irritable bowel syndrome) High cholesterol Hypertension Hearing problem Migraines Frequent headaches Gastrointestinal problem Emotional problems Chronic bronchitis Carpal tunnel syndrome Asthma Anemia Seasonal allergies Surgical History H/O lithotripsy H/O prior ablation treatment History of appendectomy History of carpal tunnel surgery Family History (Updated 11/09/24 @ 08:48 by Sharon Yoo) Mother Anxiety Depression Heart disease Mental disorder Severe allergy Pacemaker Father High cholesterol Cancer lung/lymphoma Aunt Arthritis Cancer lymphoma Stomach cancer maternal aunt Aunt Cancer Sister Depression Mental disorder Hypertension Brother Cancer lymphoma Depression Mental disorder Grandmother Heart disease Severe allergy Cancer in stomach Grandfather Suicide Social History adopted: No financial difficulty paying for basics: decline to answer service: No current occupational status: employed 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 current occupational exposures/hazards: No pets and animals: No leisure activities: clubs, art, fishing, reading and volunteer work history of recent travel: No sexually active: Yes do you think of yourself as: straight/heterosexual current gender identity: female Smoking Status: Former smoker Tobacco: How many years used: 2 alcohol intake: current alcohol intake frequency: holidays/special occasions only Alcohol type: wine substance use type: does not use diet: lactose free and low salt caffeine: Yes Type: carbonated beverages, coffee and tea what type of physical activity do you participate in: walking seatbelt use: always do you feel safe at home: Yes History 3 Elective abortions Hx Para 3 Spontaneous abortions Hx # Term Pregnancies Ectopic pregnancies Hx # Pregnancies Multiple births # of living children 3 Past Pregnancies Del. 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 She is here to establish her care. She reports over the past 2-3 months (more content not included)... Normal [facility] Platelet countOrdered By: Mike Adams on 11-09-2024 Platelets (Bld) [#/Vol] 242 10*3/uL 150-450 [facility] Potassium (Unsp spec) [Mass/ Vol]Ordered By: Willie Adams on 11-09-2024 Potassium [Moles/Vol] 4.5 mmol/L 3.3-5.1 [facility] Potassium measurement (mass/ volume)Ordered By: Willie Adams on 11-09-2024 Potassium (Unsp spec) [Mass/Vol] 4.5 mmol/L 3.3-5.1 [facility] RBC Auto (Bld) [#/Vol]Ordere d By: Wilile Adams on 11-09-2024 RBC (Bld) [#/Vol] 4.55 10*6/uL 4.2-5.4 [facility] Screening total cholesterol/ high density lipoprotein (HDL) cholesterol ratioOrdered By: Willie Adams on 11-09-2024 Cholesterol.total/Choles terol in HDL [Mass ratio] 3.55 {ratio} [facility] Serum creatinine measurement (mass/volume)Ordered By: Willie Adams on 11-09-2024 Creatinine [Mass/Vol] 1.05 mg/dL 0.70-1.20 [facility] Serum globulin measurementOr dered By: Willie Adams on 11-09-2024 Globulin (S) [Mass/Vol] 2.7 g/dL 2.2-4.2 [facility] Serum glucose measurement (m ass/volume)Ordered By: Willie Adams on 11-09-2024 Glucose [Mass/Vol] 104 mg/dL High 70-99 [facility] Serum or plasma alanine oakley otransferase (ALT) measurementOrdered By: Willie Adams on 11-09-2024 ALT [Catalytic activity/Vol] 14 U/L <35 [facility] Serum or plasma albumin carlito urement (mass/volume)Ordered By: Willie Adams on 11-09-2024 Albumin [Mass/Vol] 4.4 g/dL 3.5-5.0 [facility] Serum or plasma albumin/glob ulin mass ratioOrdered By: Willie Adams on 11-09-2024 Albumin/Globulin [Mass ratio] 1.7 {ratio} 0.9-2.4 [facility] Serum or plasma alkaline dez sphatase measurementOrdered By: Willie Adams on 11-09-2024 ALP [Catalytic activity/Vol] 92 U/L 35-104 [facility] Serum or plasma calcium carlito urement (mass/volume)Ordered By: Willie Adams on 11-09-2024 Calcium [Mass/Vol] 9.5 mg/dL 7.6-11.0 [facility] Serum or plasma cholesterol in HDL measurement (mass/volume)Ordered By: Willie Adams on 11-09-2024 Cholesterol in HDL [Mass/Vol] 63 mg/dL >40 [facility] Comment on above: National Cholesterol Education Program (NCEP) guidelines:<40 mg/dL: Low HDL-cholesterol (major risk factor for CHD)>= 60 mg/dL: High HDL-cholesterol (negative risk factor for CHD)HDL-cholesterol is affected by a number of factors, e.g. smoking, exercise, hormones, sex and age. Serum or plasma cholesterol measurement (mass/volume)Ordered By: Willie Adams on 11-09-2024 Cholesterol [Mass/Vol] 223 mg/dL High <201 [facility] Comment on above: Cholesterol level, D esirable <200 mg/dLBorderline high cholesterol 200-239 mg/dLHigh cholesterol >=240 mg/dLRecommendations of the NCEP Adult Treatment Panel for the following risk-cutoff thresholds for the [place] population. Serum or plasma urea nitroge n measurement (mass/volume)Ordered By: Willie Adams on 11-09-2024 Urea nitrogen [Mass/Vol] 16 mg/dL 4-19 [facility] Service comment (Unsp spec) [Interp]Ordered By: Fadia Lucio on 11-09-2024 Pap Smear Comment (3) . . [facility] Sodium levelOrdered By: Joaquin Adams on 11-09-2024 Sodium [Moles/Vol] 140 mmol/L 133-145 [facility] T4 Free Directon 11-09-2024 T4 FREE DIRECT 1.10 ng/dL Normal 0.76-1.46 [facility] Comment on above: Performed By: #### L 506.0400, L100.0100, L500.4050, L500.4100, L501.9520 ####[facility] [address] [place], [place], [address] T4 freeOrdered By: Willie Adams on 11-09-2024 Free T4 [Mass/Vol] 1.10 ng/dL 0.76-1.46 [facility] TSH DL <= 0.005 mIU/L QnOrde red By: Willie Adams on 11-09-2024 Thyroid Stimulating Hormone (TSH) 3.490 uIU/mL 0.300-4.200 [facility] TSH Qn 3.490 uIU/mL 0.300-4.200 [facility] Thyroid Stim Hormone (TSH)on 11-09-2024 TSH 3.490 uIU/mL Normal 0.300-4.200 [facility] Comment on above: Performed By: #### L 506.0400, L100.0100, L500.4050, L500.4100, L501.9520 #### [facility] Laboratory [address] [place], [address] Total proteinOrdered By: Ata Adams on 11-09-2024 Protein [Mass/Vol] 7.1 g/dL 5.9-8.4 [facility] Triglycerides measurementOrd ered By: Willie Adams on 11-09-2024 Triglyceride [Mass/Vol] 143 mg/dL <199 [facility] Comment on above: The drugs N-Acetylcy steine and Metamizole may falsely depress this assay. Normal range: <150 mg/dLBorderline High: 150-199 mg/dLHigh: 200-499 mg/dLVery High: >500 mg/dL White blood cell (WBC) count Ordered By: Willie Adams on 11-09-2024 WBC (Bld) [#/Vol] 5.6 10*3/uL 4.4-11.0 [facility] Internal Medicine Office Vis iton 11-08-2024 Internal Medicine Office Visit [facility] [address] [place] [address] [place] [address] OFFICE VISIT Date of Service: 11/08/24 MR#: [id number] Acct: [id number] Name: POLINA THOMSON Rep #: [id number] : 1965 Provider: Dr. 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 Abdominal Bloating, Constipation,Migraine Vp Of Digital Marketing Required: No Is patient in pain?: No Allergies perfume Allergy (Verified 11/08/24 17:37) throat swelling Medications ???Medication ???Instructions ???Recorded ???Confirmed ???Type ibuprofen 600 mg tablet 600 mg PO Q6H PRN PRN Pain Score 0 02/05/20 11/08/24 Rx 1-05/25 #20 tabs mecobalamin (vitamin B12) 500 mcg mcg PO 09/08/24 11/08/24 History chewable tablet propranolol 60 mg capsule,24 60 mg PO QDAY 09/08/24 11/08/24 Hi story hr,extended release kudppzjq-yhl-odhji ac 400 tab PO 11/08/24 11/08/24 History mcg-calcium carb 500 mg-vit K1 20 mcg tablet (Women's 50 Plus Multivitamin) sennosides 8.6 mg capsule (senna) 8.6 mg PO QDAY PRN 11/08/2411/08 History sumatriptan succinate 25 mg tablet See Rx Instructions PO .COMPLEX 11/08/24 11/08/24 Rx (Imitrex) #14 tabs turmeric,curcumin,ging er,vitamin PO 11/08/24 11/08/24 History venlafaxine 75 mg capsule,extended 75 mg PO QDAY #90 caps 11/08/24 11/08/24 Rx release 24 hr vit C 180 mg-D3 10 mcg-zinc 5.5 cap PO 11/08/24 11/08/24 History do-klydgn-cvsnhss-ging er-herb capsule (Immune Support (vit c, d and zinc)) [facility] Medical History (Updated 11/08/24 @ 18:[address] Willie Adams MD) Hyperlipidemia Anxiety and depression Chronic constipation Greater trochanter fracture Palpitations with regular cardiac rhythm Vaginal delivery Horseshoe kidney Vision problems Skin cancer GERD (gastroesophageal reflux disease) Kidney stones IBS (irritable bowel syndrome) High cholesterol Hypertension Hearing problem Migraines Frequent headaches Gastrointestinal problem Emotional problems Chronic bronchitis Carpal tunnel syndrome Asthma Anemia Seasonal allergies Surgical History (Updated 11/08/24 @ 17:46 by Callie Lawson MA) H/O lithotripsy H/O prior ablation treatment History of appendectomy History of carpal tunnel surgery Family History (Updated 11/08/24 @ 17:48 by Callie Lawson MA) Mother Anxiety Depression Heart disease Mental disorder Severe allergy Pacemaker Father High cholesterol Cancer lung/lymphoma Aunt Arthritis Cancer lymphoma Aunt Cancer Sister Depression Mental disorder Hypertension Brother Cancer lymphoma Depression Mental disorder Grandmother Heart disease Severe allergy Cancer in stomach Grandfather Suicide Social History (Updated 11/08/24 @ 17:37 by Callie Lawson MA) adopted: No current occupational status: employed 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 current occupational exposures/hazards: No pets and animals: No leisure activities: clubs, art, fishing, reading and volunteer work history of recent travel: No sexually active: Yes Smoking Status: Former smoker Tobacco: How many years used: 2 alcohol intake: current alcohol intake frequency: holidays/special occasions only Alcohol type: wine substance use type: does not use diet: lactose free and low salt caffeine: Yes Type: carbonated beverages, coffee and tea what type of physical activity do you participate in: walking seatbelt use: always do you feel safe at home: Yes HPI HPI Chief Complaint: Establish Care. Abdominal Bloating, Constipation,Migraine Details: POLINA THOMSON, is a 59 F who presents to the office today to establish care. Also has some concerns. Had previously followed up at the [facility]. She states that over the last 2 to 3 months, has had episodes of abdominal bloating and feeling full quickly. No known precipitating factor and no known food triggers. Established with gastroenterology and is scheduled for an EGD. She also reports a chronic history of constipation however, this has worsened over recent months. She states that there has been a change in the shape of her stool and had 1 episode of possible blood. Last colonoscopy was a few years ago. No unintentional weight loss, has gained weight. Chronic history of migraine. Years ago she was on Topamax however this was discontinued after overdos (more content not included)... Normal [facility] Gastric Emptying Studyon Gastric Emptying Study [facility] Imaging Services [address] [place] [address] Gastric Emptying Study MR#: [id number] Acct: [id number] Name: POLINA THOMSON Rep #: [id number] : 1965 F 59 From: Ariel moody MD PCP: Dr. Willie Adams MD Status: REG CLI Study: Gastric Emptying Study Date of Exam: 10/04/24 Exam# [id number] Ordering Dr: Alma Melton PROCEDURE: GASTRIC EMPTYING STUDY REASON FOR EXAM: Abdominal bloating. TECHNIQUE: RADIOPHARMACEUTICAL: 1.1 millicuries of technetium labeled sulfur colloid mixed with oatmeal. The patient ingested the radiopharmaceutical. COMPARISON: CORRELATION WITH EXISTING RELEVANT IMAGING STUDIES (i.e. x-ray, MRI, CT, etc.): No existing relevant imaging study available , patient did not have a previous relevant imaging study. FINDINGS: Normal gastric emptying. The combination of the radiopharmaceutical and oatmeal exited the stomach in 34 minutes. NM/Gastric Emptying Study IMPRESSION: Normal gastric emptying. Reading Location: [id number] CC: Dr. Willie Adams MD; LETICIA Ham Tent Worker: Signed Normal [facility] Gastroenterology Visit Repor ton 09-19-2024 Gastroenterology Visit Report [facility] [address] [place] [address] OFFICE VISIT Date of Service: 09/19/24 MR#: [id number] Acct: [id number] Name: POLINA THOMSON Rep #: [id number] : 1965 Provider: LETICIA Ham Age/Sex: 59/F Location: [facility] Status: Signed with Addenda ADDENDUM by LETICIA Ham on 09/20/24 at 0757 HPI Details: POLINA THOMSON, is a 59 F who presents to the office today for Addendum Pt has had falls over the past year although documented that she has not. Her family hx is also incorrectly added to the chart. Her grandfather by suicide not her father. She is vomiting several times per week. 09/20/24 0757 Date Alma Melton cc: * Signed Intake Vital Signs 02/15/23 14:49 Height 5 ft 7 in Intake Visit Reasons: Gastroesophageal reflux disease (GERD) Chief Complaint: bloating Allergies perfume Allergy (Verified 09/08/24 15:21) throat swelling Medications ???Medication ???Instructions ???Recorded ???Confirmed ???Type ibuprofen 600 mg tablet 600 mg PO Q6H PRN PRN Pain Score 0 02/05/20 Rx 1-05/25 #20 tabs doxycycline hyclate 100 mg capsule 100 mg PO BID 7 days #14 caps Rx metoclopramide HCl 5 mg tablet 5 mg PO Q8H PRN PRN nausea and 11/05 Rx (Reglan) vomiting 7 days #20 tabs Lactobacillus rhamnosus GG 10 1 cap PO QDAY 09/08/24 09/12/24 Hi story billion cell capsule (Culturelle) mecobalamin (vitamin B12) 500 mcg mcg PO 09/08/24 09/12/24 History chewable tablet propranolol 60 mg capsule,24 60 mg PO QDAY 09/08/24 09/12/24 Hi story hr,extended release sennosides 8.6 mg capsule (senna) 8.6 mg PO QDAY 09/08/24 09/12/24 History venlafaxine 37.5 mg 37.5 mg PO QDAY 09/08/24 09/12/24 History capsule,extended release 24 hr Patient : No Have you fallen in the past year?: No Nurse's Note: OV 09.19.24 Pt here to establish care with [facility]. Reports constipation, abdominal pain, gas, bloating, difficultly swallowing and heartburn. Reports a formed BM daily and takes senna to help her keep regular. Prior hx of EGD and colonoscopy in 2019. Continues [facility] Medical History Vaginal delivery Horseshoe kidney Vision problems Skin cancer GERD (gastroesophageal reflux disease) Kidney stones IBS (irritable bowel syndrome) High cholesterol Hypertension Hearing problem Migraines Frequent headaches Gastrointestinal problem Emotional problems Chronic bronchitis Carpal tunnel syndrome Asthma Anemia Seasonal allergies Surgical History H/O prior ablation treatment History of appendectomy History of carpal tunnel surgery Family History Mother Anxiety Depression Heart disease Mental disorder Severe allergy Father High cholesterol Cancer Suicide Aunt Arthritis Cancer Aunt Cancer Sister Depression Mental disorder Hypertension Brother Cancer Depression Mental disorder Grandmother Heart disease Severe allergy Grandfather Suicide Social History Smoking Status: Former smoker alcohol intake: never substance use type: does not use what type of physical activity do you participate in: none HPI HPI Chief Complaint: bloating Details: POLINA THOMSON, is a 59 F who presents to the office today for establishment with [facility]. Pt has had GI issues for many years. Over the past couple months she has had worsening symptoms with abd distention, early satiety, n/v, heartburn and constipation. She is not eating much but is gaining weight. She is gets full very quickly after she starts eating. She is having at least one episode of emesis weekly. She is taking senna daily for constipation and has been for about one year. She does not have a bm if she does not take it. Her bm are typically small and hard. Her last EGD and colonoscopy was in 2019 with normal findings. ROS Const Constitutional: Positive for weight change; No fatigue or fever(s) ENT ENT: Positive for difficulty swallowing Cardio Cardiology: Positive for leg pain with exertion Gastro GI: Positive for abdominal pain, bloating, constipation, heartburn, difficulty swallowing, excessive flatus and Blood in stool; No belching, change in bowel habits, change in stool character, coffee ground emesis, cramping, diarrhea, feeling full early, incontinent of stools, Vomiting blood/hematemesis, loose stools, Black,tarry stools, nausea/dyspepsia, pain with swallowing, vomiting or other Musc Musculoskeletal: Positive for abnormal gait, joint pain, back pain, muscle cramps, numb (more content not included)... Normal [facility] CNOVon 06-26-2024 CNOV Office Visit (INTMWS ) POLINA THOMSON ([id number]) 1965 F Date Time Provider Department 06/26/24 8:20 AM ALEJANDRINA GRAHAM During your visit today, we recorded the following information about you: Pulse Respiration Blood pressure Weight 56/minute 16/minute 130/74 85.7 kg Aeljandrina Graham MD 06/26/2024 1:57 PM Signed Reason for Visit Patient presents with: Rx Refills Hip Pain Polina Thomson is a 57 year old female who presents here today for Above Complaints. Health Maintenance HEPATITIS B(1 of 3 - 3-dose series) DTAP,TDAP,TD(1 - Tdap) SHINGRIX VACCINE(1 of 2) MAMMOGRAM DEPRESSION ASSESSMENT HPI Polina is a very pleasant 59-year-old woman with a past medical history of asthma, hyperlipidemia, anxiety and depression. Hip: Noticed it first at the trip to [place] last year, the pain is in the thigh muscle, tendon in the groin, and deep inside the side of the trochanter. she feels like her knee deanne under her. She is a little stressed. She quit her job, at [employer]. Looking for a new job because of hip issues she had to quit the old. Effexor helps her well, and would need a refill Bp is a little elevated,when she came in but repeat bp was normal. Patient has pain intermittently related to food, US showed gall bladder sludge and hepatic steatosis. Today patient notes having difficulty breathing to different perfumes. She first noticed it in 2019. She had covid at that time. Following that she has had issues with perfumes to the extent she can find it hard to breathe. Does not have an inhaler. As soon as the scent hits her she starts coughing , wheezing, and trying to get air. Did see ENT when this first started, and was tested for environmental stuff but could not be tested for clements and scents. She is getting allergy injections, weekly as she has many reactions to things around her. No problem-specific Assessment AND Plan notes found for this encounter. PAST MEDICAL HISTORY Diagnosis Date Anxiety B12 deficiency Depression History of kidney surgery Hypotension Kidney anomaly, congenital horse shoe kidney Kidney stones Shoulder impingement bilateral, right is the worst Suicide attempt by drug ingestion (HCC) 2016 Vitamin D deficiency PAST SURGICAL HISTORY Procedure Laterality Date APPENDECTOMY CALCULUS INFRARED SPECTROSCOPY CARPAL TUNNEL COLONOSCOPY FLX DX W/COLLJ SPEC WHEN PFRMD 01/26/2019 Colonoscopy ESOPHAGOGASTRODUODENOS COPY TRANSORAL DIAGNOSTIC 01/26/2019 EGD S BALLOON,UTERINE ABLATION [id number] 1997 [place] FAMILY HISTORY Problem Relation Age of Onset other (Other) Mother pacemaker/ defib Cancer Father lung cancer other (Other) Father hperlipidemia Hypertension Sister Cancer Brother lymphoma other (Other) Brother aids other (Other) Maternal Grandmother due to allergic reaction Cancer Other thyroid cancer Cancer Maternal Aunt bladder other (Other) Son gout Depression Sister Depression Sister Depression Sister other (6P 25 deletion) Grandchild Social History Tobacco Use Smoking status: Former Smokeless tobacco: Never Vaping Use Vaping status: Never Used Substance Use Topics Alcohol use: Not Currently Drug use: Never Past medical history, appointments, medications, allergies reviewed. Pertinent Lab/Diagnostic Studies are reviewed and discussed today Current Outpatient Medications: T-V2-oapz-yun-exmas-au ng-herb (IMMUNE SUPPORT, VIT C,D,ZINC,) 180 mg-10 mcg- 5.5 mg-150 mg cap Lactobacillus rhamnosus GG (CULTURELLE ORAL) bismuth subsalicylate (DIGESTIVE RELIEF ORAL) VKZBA-YBOPYXSTW-TZNSHD IUM MISC propranolol ER (INDERAL LA) 60 mg 24 hr capsule venlafaxine ER (EFFEXOR XR) 37.5 mg 24 hr capsule Multivitamins-Minerals -Lutein (MULTIVITAMIN 50 PLUS) tab albuterol HFA (PROVENTIL HFA, VENTOLIN HFA) 90 mcg/actuation inhaler calcium cit/vit D3/isoflavon 2 (MENOPAUSE RELIEF ORAL) LORazepam (ATIVAN) 0.5 mg Review of Systems CONSTITUTIONAL: No fevers, chills night sweats, unintended weight loss CARDIOVASCULAR: No chest pain, dyspnea, palpitations, orthopnea, PND, ankle edema. PULM: No dyspnea, unexplained cough. GI: No dysphagia/odynophagia, problematic reflux, constipation, diarrhea, changes in stool habits, hematochezia, melena. : No new urinary complaints, including dysuria, gross hematuria or pyuria. NEURO: No new balance problems, peripheral weakness/paresthesias or numbness of concern. Physical Exam BP 130/74 Pulse (!) 56 Resp 16 Wt 85.7 kg (189 lb) BMI 29.60 kg/m? General appearance: Well appearing, alert, in no acute distress, well nourished. Skin: Skin color, texture, turgor normal, no suspicious rashes or lesions Head: Normocephalic, no masses, lesions, tenderness or abnormalities Eyes: Anicteric sclera. Pupils are equally round and joselin (more content not included)... Normal [facility] XR HIP IVONE 5V PEL+ AP/LAT EA HIPon 06-26-2024 XR HIP IVONE 5V PEL+ AP/LAT EA HIP * * *Final Report* * * DATE OF EXAM: Jun 26 2024 10:22AM WOX [id number] - XR HIP IVONE 5V PEL+ AP/LAT EA HIP / PROCEDURE REASON: Left hip pain * * * * Physician Interpretation * * * * EXAMINATION / TECHNIQUE: XR HIP IVONE 5V PEL+ AP/LAT EA HIP PATIENT/TECHNOLOGIST PROVIDED HISTORY: Chronic bilateral hip pain CLINICAL INFORMATION ( PROVIDED BY ORDERING CLINICIAN) : Left hip pain COMPARISON: RESULT: No acute fracture or dislocation. The hip joint spaces are maintained. No significant malalignment. Fragmented enthesophyte at the right greater trochanter. Incompletely assessed degenerative changes of the visualized lower lumbar spine. IMPRESSION: 1. No acute osseous abnormality. 2. Hip joint spaces are maintained. Tent Worker[facility] Transcribe Date/Time: Jun 29 2024 11:23P Dictated by : CARLOS BASILIO MD This examination was interpreted and the report reviewed and electronically signed by: CARLOS BASILIO MD on Jun 29 2024 11:24PM EST [id number] Normal [facility] CBC W Auto Differential pane l (Bld)on 04-05-2024 Basophils (Bld) [#/Vol] 0.04 10*3/uL NINF [facility] Basophils/100 WBC (Bld) 0.9 % C [facility] Differential cell count method Nom (Bld) Auto [facility] Eosinophils (Bld) [#/Vol] 0.09 10*3/uL [facility] Eosinophils/100 WBC (Bld) 2.1 % [facility] Erythrocyte distribution width (RBC) [Ratio] 11.9 % 11.5 - 15.0 % [facility] Hematocrit (Bld) [Volume fraction] 39.2 % 36.0 - 46.0 % [facility] Hemoglobin (Bld) [Mass/Vol] 13.2 g/dL 11.5 - 15.5 g/dL [facility] Immature granulocytes (Bld) [#/Vol] [facility] Immature granulocytes/100 WBC (Bld) 0.2 % [facility] Lymphocytes (Bld) [#/Vol] 1.48 10*3/uL [facility] Lymphocytes/100 WBC (Bld) 34.7 % [facility] MCH (RBC) [Entitic mass] 30.6 pg 26. 0 - 34.0 pg [facility] MCHC (RBC) [Mass/Vol] 33.7 g/dL 30.5 - 36.0 g/dL [facility] MCV (RBC) [Entitic vol] 90.7 fL 80.0 - 100.0 fL [facility] Monocytes (Bld) [#/Vol] 0.35 10*3/uL [facility] Monocytes/100 WBC (Bld) 8.2 % [facility] Neutrophils (Bld) [#/Vol] 2.29 10*3/uL [facility] Neutrophils/100 WBC (Bld) 53.9 % [facility] Nucleated RBC (Bld) [#/Vol] [facility] Nucleated RBC/100 WBC (Bld) [Ratio] 0.0 % /100 WBC [facility] Platelet mean volume (Bld) [Entitic vol] 9.9 fL 9.0 - 12.7 fL [facility] Platelets (Bld) [#/Vol] 223 10*3/uL [facility] RBC (Bld) [#/Vol] 4.32 10*6/uL 3.90 - 5.2 0 m/uL [facility] WBC (Bld) [#/Vol] 4.26 10*3/uL [facility] Basophils (Bld) [#/Vol] 0.04 10*3/uL Normal <0.11 [facility] Comment on above: Order Comment: Speci men Type: BLOOD SPECIMENOrdering Facility: [facility] Address: [address] [place] [address] Performed By: #### 5 7021-8 ####[facility] [id number] [place] [address] [place] Basophils/100 WBC (Bld) 0.9 % Normal [facility] Comment on above: Order Comment: Speci men Type: BLOOD SPECIMENOrdering Facility: [facility] Address: [address] [place] [address] Performed By: #### 5 7021-8 ####[facility] [id number] [place] [address] [place] Differential cell count method Nom (Bld) Auto Normal [facility] Comment on above: Order Comment: Speci men Type: BLOOD SPECIMENOrdering Facility: [facility] Address: [address] [place] [address] Performed By: #### 5 7021-8 ####[facility] [id number] [place] [address] [place] Eosinophils (Bld) [#/Vol] 0.09 10*3/uL Normal <0.46 [facility] Comment on above: Order Comment: Speci men Type: BLOOD SPECIMENOrdering Facility: [facility] Address: [address] [place] [address] Performed By: #### 5 7021-8 ####[facility] [id number] [place] [address] [place] Eosinophils/100 WBC (Bld) 2.1 % Normal [facility] Comment on above: Order Comment: Speci men Type: BLOOD SPECIMENOrdering Facility: [facility] Address: [address] [place] [address] Performed By: #### 5 7021-8 ####[facility] GABYWDILCIALIA [id number] [place] [address] [place] Erythrocyte distribution width (RBC) [Ratio] 11.9 % Normal 11.5-15.0 [facility] Comment on above: Order Comment: Speci men Type: BLOOD SPECIMENOrdering Facility: [facility] Address: [address] [place] [address] Performed By: #### 5 7021-8 ####[facility]WOODDILCIALIA [id number] [place] [address] [place] Hematocrit (Bld) [Volume fraction] 39.2 % Normal 36.0-46.0 [facility] Comment on above: Order Comment: Speci men Type: BLOOD SPECIMENOrdering Facility: [facility] Address: [address] [place] [address] Performed By: #### 5 7021-8 ####[facility] [id number] [place] [address] [place] Hemoglobin (Bld) [Mass/Vol] 13.2 g/dL Normal 11.5-15.5 [facility] Comment on above: Order Comment: Speci men Type: BLOOD SPECIMENOrdering Facility: [facility] Address: [address] [place] [address] Performed By: #### 5 7021-8 ####[facility]ITALWNCLIA [id number] [place] [address] [place] Immature granulocytes (Bld) [#/Vol] 10*3/uL Normal <0.10 [facility] Comment on above: Order Comment: Speci men Type: BLOOD SPECIMENOrdering Facility: [facility] Address: [address] [place] [address] Performed By: #### 5 7021-8 ####[facility]NCL[facility] [id number] [place] [address] [place] Immature granulocytes/100 WBC (Bld) 0.2 % Normal [facility] Comment on above: Order Comment: Speci men Type: BLOOD SPECIMENOrdering Facility: [facility] Address: [address] [place] [address] Performed By: #### 5 7021-8 ####[facility]CL[facility] [id number] [place] [address] [place] Lymphocytes (Bld) [#/Vol] 1.48 10*3/uL Normal 1.00-4.00 [facility] Comment on above: Order Comment: Speci men Type: BLOOD SPECIMENOrdering Facility: [facility] Address: [address] [place] [address] Performed By: #### 5 7021-8 ####[facility] [id number] [place] [address] [place] Lymphocytes/100 WBC (Bld) 34.7 % Normal [facility] Comment on above: Order Comment: Speci men Type: BLOOD SPECIMENOrdering Facility: [facility] Address: [address] [place] [address] Performed By: #### 5 7021-8 ####[facility]WOODNCLI [id number] [place] [address] [place] MCH (RBC) [Entitic mass] 30.6 pg Normal 26.0-34.0 [facility] Comment on above: Order Comment: Speci men Type: BLOOD SPECIMENOrdering Facility: [facility] Address: [address] [place], [place] [id number] Performed By: #### 5 7021-8 ####[facility] [id number] [place] [address] [place] MCHC (RBC) [Mass/Vol] 33.7 g/dL Normal 30.5-36.0 [facility] Comment on above: Order Comment: Speci men Type: BLOOD SPECIMENOrdering Facility: [facility] Address: [address] [place] [address] Performed By: #### 5 7021-8 ####[facility]ODMICKY [id number] [place] [address] [place] MCV (RBC) [Entitic vol] 90.7 fL Normal 80.0-100.0 C [facility] Comment on above: Order Comment: Speci men Type: BLOOD SPECIMENOrdering Facility: [facility] Address: [address] [place] [address] Performed By: #### 5 7021-8 ####[facility] [id number] [place] [address] [place] Monocytes (Bld) [#/Vol] 0.35 10*3/uL Normal <0.87 [facility] Comment on above: Order Comment: Speci men Type: BLOOD SPECIMENOrdering Facility: [facility] Address: [address] [place] [address] Performed By: #### 5 7021-8 ####[facility] [id number] [place] [address] [place] Monocytes/100 WBC (Bld) 8.2 % Normal C [facility] Comment on above: Order Comment: Speci men Type: BLOOD SPECIMENOrdering Facility: [facility] Address: [address] [place] [address] Performed By: #### 5 7021-8 ####[facility] [id number] [place] [address] [place] Neutrophils (Bld) [#/Vol] 2.29 10*3/uL Normal 1.45-7.50 [facility] Comment on above: Order Comment: Speci men Type: BLOOD SPECIMENOrdering Facility: [facility] Address: [address] [place] [address] Performed By: #### 5 7021-8 ####[facility]PITALWDILCIALIA [id number] [place] [address] [place] Neutrophils/100 WBC (Bld) 53.9 % Normal [facility] Comment on above: Order Comment: Speci men Type: BLOOD SPECIMENOrdering Facility: [facility] Address: [address] [place] [address] Performed By: #### 5 7021-8 ####[facility] [id number] [place] [address] [place] Nucleated RBC (Bld) [#/Vol] 10*3/uL Normal <0.01 [facility] Comment on above: Order Comment: Speci men Type: BLOOD SPECIMENOrdering Facility: [facility] Address: [address] [place] [address] Performed By: #### 5 7021-8 ####[facility] [id number] [place] [address] [place] Nucleated RBC/100 WBC (Bld) [Ratio] 0.0 /100 WBC Normal [facility] Comment on above: Order Comment: Speci men Type: BLOOD SPECIMENOrdering Facility: [facility] Address: [address] [place] [address] Performed By: #### 5 7021-8 ####[facility] [id number] [place] [address] [place] Platelet mean volume (Bld) [Entitic vol] 9.9 fL Normal 9.0-12.7 [facility] Comment on above: Order Comment: Speci men Type: BLOOD SPECIMENOrdering Facility: [facility] Address: [address] [place] [address] Performed By: #### 5 7021-8 ####[facility] [id number] [place] [address] [place] Platelets (Bld) [#/Vol] 223 10*3/uL Normal 150-400 [facility] Comment on above: Order Comment: Speci men Type: BLOOD SPECIMENOrdering Facility: [facility] Address: [address] [place] [address] Performed By: #### 5 7021-8 ####[facility]ITALWNCLIA [id number] [place] [address] [place] RBC (Bld) [#/Vol] 4.32 10*6/uL Normal 3.90-5.20 [facility] Comment on above: Order Comment: Speci men Type: BLOOD SPECIMENOrdering Facility: [facility] Address: [address] [place] [address] Performed By: #### 5 7021-8 ####[facility] [id number] [place] [address] [place] WBC (Bld) [#/Vol] 4.26 10*3/uL Normal 3.70-11.00 [facility] Comment on above: Order Comment: Speci men Type: BLOOD SPECIMENOrdering Facility: [facility] Address: [address] [place] [address] Performed By: #### 5 7021-8 ####[facility] [id number] [place] [address] [place] CNOVon 04-05-2024 CNOV Office Visit (INTMWS ) POLINA THOMSON ([id number]) 1965 F Date Time Provider Department 04/05/24 9:40 AM JEANMARIE, LAUREL INTMWS During your visit today, we recorded the following information about you: Pulse Blood pressure Weight 65/minute 122/76 84.4 kg Laurel Murry APRN.LALI 04/05/2024 10:11 AM Signed SUBJECTIVE Polina Thomson is a 59 year old female here today for a check up on her medical problems. Chief Complaint Patient presents with: weight issues: weight gain, questions if has a thyroid nodule complains of fatigue off and on HPI Polina Thomson is a 59 year old female. She is an established patient of Alejandrina Graham MD. Here today for concerns of noticing gradual weight gain. Wondering if her thyroid is off. Family history of thyroid cancer. Noticing fatigue, weight gain despite being active. Some increased stress with work and trying to sell house. Sleep is not great, tossing and turning. Diet is pretty healthy but only 1 meal a day and might eat late at night. Trying to drink water. Her medications were reviewed today and her list is now up to date. Medications Current Outpatient Medications Medication Sig I-Q1-jscg-nog-qilud-fk ng-herb (IMMUNE SUPPORT, VIT C,D,ZINC,) 180 mg-10 mcg- 5.5 mg-150 mg cap Take 2 capsules by mouth once daily. calcium cit/vit D3/isoflavon 2 (MENOPAUSE RELIEF ORAL) Take 2 capsules by mouth once daily. Lactobacillus rhamnosus GG (CULTURELLE ORAL) Take 1 capsule by mouth once daily. bismuth subsalicylate (DIGESTIVE RELIEF ORAL) Take 1 tablet by mouth two times a day. [id number] IUM MISC 1 tablet as needed. propranolol ER (INDERAL LA) 60 mg 24 hr capsule take 1 capsule by mouth every day venlafaxine ER (EFFEXOR XR) 37.5 mg 24 hr capsule Take 1 capsule by mouth once daily. Multivitamins-Minerals -Lutein (MULTIVITAMIN 50 PLUS) tab Take 1 tablet by mouth once daily. albuterol HFA (PROVENTIL HFA, VENTOLIN HFA) 90 mcg/actuation inhaler Inhale 2 Puffs as instructed every 4 hours as needed for wheezing/shortness of breath. LORazepam (ATIVAN) 0.5 mg Take 0.5 mg by mouth. (Patient not taking: Reported on 01/05/2024) No current facility-administered medications for this visit. ALLERGIES Allergen Reactions Perfumes Shortness of Breath coughing Seasonal Allergies Other: See Comments Sneezing, runny nose ACTIVE PROBLEM LIST Anxiety and Depression - 09/22/2023 Moderate Persistent Asthma Without Complication - 09/22/2023 Hyperlipidemia - 12/15/2022 Social History Tobacco Use Smoking status: Former Smokeless tobacco: Never Vaping Use Vaping status: Never Used Substance Use Topics Alcohol use: Not Currently Drug use: Never Review of Systems Constitutional: Positive for fatigue. Respiratory: Negative. Cardiovascular: Negative. OBJECTIVE BP 122/76 Pulse 65 Wt 186 lb 1.1 oz (84.4kg) SpO2 98% Physical Exam Vitals and nursing note reviewed. Constitutional: General: She is awake. She is not in acute distress. Appearance: Normal appearance. She is well-developed and well-groomed. She is not ill-appearing, toxic-appearing or diaphoretic. HENT: Head: Normocephalic. Right Ear: External ear normal. Left Ear: External ear normal. Nose: Nose normal. Eyes: General: Vision grossly intact. Conjunctiva/sclera: Conjunctivae normal. Pupils: Pupils are equal, round, and reactive to light. Neck: Thyroid: Thyromegaly present. No thyroid mass or thyroid tenderness. Vascular: No JVD. Trachea: Trachea normal. Pulmonary: Effort: Pulmonary effort is normal. No accessory muscle usage, prolonged expiration or respiratory distress. Musculoskeletal: Cervical back: Neck supple. Skin: General: Skin is warm and dry. Capillary Refill: Capillary refill takes less than 2 seconds. Neurological: General: No focal deficit present. Mental Status: She is alert and oriented to person, place, and time. Mental status is at baseline. Psychiatric: Attention and Perception: Attention and perception normal. Mood and Affect: Mood and affect normal. Speech: Speech normal. Behavior: Behavior normal. Behavior is cooperative. Thought Content: Thought content normal. Cognition and Memory: Cognition and memory normal. Judgment: Judgment normal. ASSESSMENT/PLAN: 1. Thyroid enlargement - ICD9: 240.9, ICD10: E04.9 (primary diagnosis) Some notable enlargement on patient right. Check labs and ultrasound. - THYROID STIMULATING HORMONE - T3, FREE - T4 FREE/FREE THYROXINE - US THYROID/PARATHYROID - US THYROID/PARATHYROID 2. Weight gain - ICD9: 783.1, ICD10: R63.5 This could be thyroid related, we also discussed it might be stress related. If thyroid testing normal then we will work on other causes such as stress management, diet and exercise. 3. Anxiety and depression - ICD9: 300.00, 311, ICD10: F41.9, F32.A (more content not included)... Normal [facility] metabolic 2000 panelOrdered By: Fidelia Sidhu on 04-05-2024 Albumin [Mass/Vol] 4.4 g/dL 3.9 - 4.9 g/dL [facility] ALP [Catalytic activity/Vol] 86 U/L 34 - 123 U/L [facility] ALT [Catalytic activity/Vol] 12 U/L 7 - 38 U/L [facility] Anion gap [Moles/Vol] 10 mmol/L 8 - 15 mmol/L [facility] AST [Catalytic activity/Vol] 18 U/L 13 - 35 U/L [facility] Bilirubin [Mass/Vol] 0.4 mg/dL 0.2 - 1 .3 mg/dL [facility] Calcium [Mass/Vol] 9.8 mg/dL 8.5 - 10. 2 mg/dL [facility] Chloride [Moles/Vol] 105 mmol/L 98 - 10 7 mmol/L [facility] CO2 [Moles/Vol] 23 mmol/L 22 - 30 mmol/L [facility] Creatinine [Mass/Vol] 0.82 mg/dL 0.58 - 0.96 mg/dL [facility] GFR/1.73 sq M.predicted among non-blacks MDRD (S/P/Bld) [Vol rate/Area] 84 mL/min/{1.73_m2} - PINF [facility] Comment on above: Estimated Glomerular Filtration Rate (eGFR) is calculated using the 2020 CKD-EPI creatinine equation. This equation utilizes serum creatinine, sex, and age as parameters. The creatinine assay has traceable calibration to isotope dilution-mass spectrometry. Refer to KDIGO guidelines for clinical interpretation. In patients with unstable renal function, e.g. those with acute kidney injury, the eGFR may not accurately reflect actual GFR. Glucose [Mass/Vol] 94 mg/dL 74 - 99 mg/dL [facility] Comment on above: The [place] Diab[employer] [place] Association (ADA) provides guidance for cutoff values for fasting glucose and random glucose. The ADA defines fasting as no caloric intake for at least 8 hours. Fasting plasma glucose results between 100 to 125 mg/dL indicate increased risk for diabetes (prediabetes). Fasting plasma glucose results greater than or equal to 126 mg/dL meet the criteria for diagnosis of diabetes. In the absence of unequivocal hyperglycemia, results should be confirmed by repeat testing. In a patient with classic symptoms of hyperglycemia or hyperglycemic crisis, random plasma glucose results greater than or equal to 200 mg/dL meet the criteria for diagnosis of diabetes. Reference: Standards of Medical Care in Diabetes 2016, [place] Diabetes Association. Diabetes Care. 2016.39(Suppl 1). Interpretation and review of laboratory results Normal [facility] Potassium [Moles/Vol] 4.5 mmol/L 3.7 - 5.1 mmol/L [facility] Protein [Mass/Vol] 6.8 g/dL 6.3 - 8.0 g/dL [facility] Sodium [Moles/Vol] 138 mmol/L 136 - 144 mmol/L [facility] Urea nitrogen [Mass/Vol] 17 mg/dL 7 - 21 mg/d L [facility] Comprehensive metabolic 2000 panelon 04-05-2024 Albumin [Mass/Vol] 4.4 g/dL Normal 3.9-4.9 [facility] Comment on above: Order Comment: Speci men Type: BLOOD SPECIMENOrdering Facility: [facility] Address: [address] [place] [address] Performed By: #### 2 4323-8 ####[facility] [id number] [place] [address] [place] ALP [Catalytic activity/Vol] 86 U/L Normal 34-123 [facility] Comment on above: Order Comment: Speci men Type: BLOOD SPECIMENOrdering Facility: [facility] Address: [address] [place] [address] Performed By: #### 2 4323-8 ####[facility] [id number] [place] [address] [place] ALT [Catalytic activity/Vol] 12 U/L Normal 7-38 [facility] Comment on above: Order Comment: Speci men Type: BLOOD SPECIMENOrdering Facility: [facility] Address: [address] [place] [address] Performed By: #### 2 4323-8 ####[facility] MARCELOLIA [id number] [place] [address] [place] Anion gap [Moles/Vol] 10 mmol/L Normal 8-15 [facility] Comment on above: Order Comment: Speci men Type: BLOOD SPECIMENOrdering Facility: [facility] Address: [address] [place] [address] Performed By: #### 2 4323-8 ####[facility] GABYWDILCIALIA [id number] [place] [address] [place] AST [Catalytic activity/Vol] 18 U/L Normal 13-35 [facility] Comment on above: Order Comment: Speci men Type: BLOOD SPECIMENOrdering Facility: [facility] Address: [address] [place] [address] Performed By: #### 2 4323-8 ####[facility]ODDILCIALIA [id number] [place] [address] [place] Bilirubin [Mass/Vol] 0.4 mg/dL Normal 0.2-1.3 [facility] Comment on above: Order Comment: Speci men Type: BLOOD SPECIMENOrdering Facility: [facility] Address: [address] [place] [address] Performed By: #### 2 4323-8 ####[facility] [id number] [place] [address] [place] Calcium [Mass/Vol] 9.8 mg/dL Normal 8.5-10.2 [facility] Comment on above: Order Comment: Speci men Type: BLOOD SPECIMENOrdering Facility: [facility] Address: [address] [place] [address] Performed By: #### 2 4323-8 ####[facility]WNCLIA [id number] [place] [address] [place] Chloride [Moles/Vol] 105 mmol/L Normal 98-107 [facility] Comment on above: Order Comment: Speci men Type: BLOOD SPECIMENOrdering Facility: [facility] Address: [address] [place] [address] Performed By: #### 2 4323-8 ####[facility]ITALLI [id number] [place] [address] [place] CO2 [Moles/Vol] 23 mmol/L Normal 22-30 [facility] Comment on above: Order Comment: Speci men Type: BLOOD SPECIMENOrdering Facility: [facility] Address: [address] [place] [address] Performed By: #### 2 4323-8 ####[facility] [id number] [place] [address] [place] Creatinine [Mass/Vol] 0.82 mg/dL Normal 0.58-0.96 [facility] Comment on above: Order Comment: Speci men Type: BLOOD SPECIMENOrdering Facility: [facility] Address: [address] [place] [address] Performed By: #### 2 4323-8 ####[facility] [id number] [place] [address] [place] [facility] Creatinine and Glomerular filtration rate.predicted panel (S/P/Bld) 84 mL/min/1.73m??? Normal >=60 [facility] Comment on above: Order Comment: Speci men Type: BLOOD SPECIMENOrdering Facility: [facility] Address: [address] [place] [address] Result Comment: Whit mated Glomerular Filtration Rate (eGFR) is calculated using the 2020 CKD-EPI creatinine equation. This equation utilizes serum creatinine, sex, and age as parameters. The creatinine assay has traceable calibration to isotope dilution-mass spectrometry. Refer to KDIGO guidelines for clinical interpretation. In patients with unstable renal function, e.g. those with acute kidney injury, the eGFR may not accurately reflect actual GFR. Performed By: #### 2 4323-8 ####[facility] JAMEELWNCLIA [id number] [place] [address] [place] Glucose [Mass/Vol] 94 mg/dL Normal 74-99 [facility] Comment on above: Order Comment: Korey judge Type: BLOOD SPECIMENOrdering Facility: [facility] Address: [address] [place] [address] Result Comment: The [place] Diabetes Association (ADA) provides guidance for cutoff values for fasting glucose and random glucose. The ADA defines fasting as no caloric intake for at least 8 hours. Fasting plasma glucose results between 100 to 125 mg/dL indicate increased risk for diabetes (prediabetes). Fasting plasma glucose results greater than or equal to 126 mg/dL meet the criteria for diagnosis of diabetes. In the absence of unequivocal hyperglycemia, results should be confirmed by repeat testing. In a patient with classic symptoms of hyperglycemia or hyperglycemic crisis, random plasma glucose results greater than or equal to 200 mg/dL meet the criteria for diagnosis of diabetes. Reference: Standards of Medical Care in Diabetes 2016, [place] Diabetes Association. Diabetes Care. 2016.39(Suppl 1). Performed By: #### 2 4323-8 ####[facility] [id number] [place] [address] [place] Potassium [Moles/Vol] 4.5 mmol/L Normal 3.7-5.1 [facility] Comment on above: Order Comment: Korey judge Type: BLOOD SPECIMENOrdering Facility: [facility] Address: [address] [place] [address] Performed By: #### 2 4323-8 ####[facility] GABYWNCLIA [id number] [place] [address] [place] Protein [Mass/Vol] 6.8 g/dL Normal 6.3-8.0 [facility] Comment on above: Order Comment: Speci men Type: BLOOD SPECIMENOrdering Facility: [facility] Address: [address] [place] [address] Performed By: #### 2 4323-8 ####[facility] HEIDI [id number] [place] [address] [place] Sodium [Moles/Vol] 138 mmol/L Normal 136-144 [facility] Comment on above: Order Comment: Speci men Type: BLOOD SPECIMENOrdering Facility: [facility] Address: [address] [place] [address] Performed By: #### 2 4323-8 ####[facility] [id number] [place] [address] [place] Urea nitrogen [Mass/Vol] 17 mg/dL Normal 7-21 [facility] Comment on above: Order Comment: Speci men Type: BLOOD SPECIMENOrdering Facility: [facility] Address: [address] [place] [address] Performed By: #### 2 4323-8 ####[facility]NESSAA [id number] [place] [address] [place] T3Free SerPl-mCncon 04-05-20 24 Free T3 [Mass/Vol] 2.7 pg/mL Normal 2.3-4.1 [facility] Comment on above: Order Comment: Speci men Type: BLOOD SPECIMENOrdering Facility: [facility] Address: [address] [place] [address] Performed By: #### 3 016-3, 3051-0, 3024-7 ####[facility] LABCLIA [id number] [facility] [id number] [place] [address] [place] T4 Free SerPl-mCncon 024 Free T4 [Mass/Vol] 1.1 ng/dL Normal 0.9-1.7 [facility] Comment on above: Order Comment: Speci men Type: BLOOD SPECIMENOrdering Facility: [facility] Address: [address] [place], [place] [address] Performed By: #### 3 016-3, 3051-0, 3024-7 ####[facility] LABCLIA [id number] [place] [id number] [place] TSH SerPl-aCncon 04-05-2024 TSH Qn 2.180 m[IU]/L Normal 0.270-4.200 [facility] Comment on above: Order Comment: Speci men Type: BLOOD SPECIMENOrdering Facility: [facility] Address: [address] [place] [address] Performed By: #### 3 016-3, 3051-0, 3024-7 ####[facility] LABCLIA [id number] [place] US THYROID/PARATHYROIDon US THYROID/PARATHYROID * * *Final Report * * * DATE OF EXAM: Apr 05 2024 10:37AM [facility] 1048 - US THYROID/PARATHYROID / PROCEDURE REASON: Thyroid enlargement * * * * Physician Interpretation * * * * EXAMINATION: THYROID ULTRASOUND CLINICAL HISTORY: Thyroid enlargement TECHNIQUE: Sonography and Doppler imaging of the thyroid was performed. Images were obtained and stored in a permanent archive. MQ: UST_1 COMPARISON: None. RESULT: Right Lobe: 4.6 x 1.2 x 1.3 cm; homogeneous echogenicity, expected vascular flow. Left Lobe: 4.4 x 1.0 x 1.0 cm; homogeneous echogenicity, expected vascular flow. Isthmus: 0.3 cm Nodules: None IMPRESSION: Normal sonographic appearance of the thyroid. Tent Worker: PSCB Transcribe Date/Time: Apr 05 2024 10:38A Dictated by : CRISTEL MURPHY MD This examination was interpreted and the report reviewed and electronically signed by: CRISTEL MURPHY MD on Apr 05 2024 10:43AM EST [id number] Normal [facility] US Thyroid glandon Radiology Study observation (narrative) Luke Mcintyre IMPRESSION: Normal sonographic appearance of the thyroid. Tent Worker: MAXIM Transcribe Date/Time: Apr 05 2024 10:38A Dictated by : CRISTEL MURPHY MD This examination was interpreted and the report reviewed and electronically signed by: CRISTEL MURPHY MD on Apr 05 2024 10:43AM [facility] DIVISION OF RADIOLOGY * * *Final Report* * * DATE OF EXAM: Apr 05 2024 10:37AM [facility] 1048 - US THYROID/PARATHYROID / PROCEDURE REASON: Thyroid enlargement * * * * Physician Interpretation * * * * EXAMINATION: THYROID ULTRASOUND CLINICAL HISTORY: Thyroid enlargement TECHNIQUE: Sonography and Doppler imaging of the thyroid was performed. Images were obtained and stored in a permanent archive. MQ: UST_1 COMPARISON: None. RESULT: Right Lobe: 4.6 x 1.2 x 1.3 cm; homogeneous echogenicity, expected vascular flow. Left Lobe: 4.4 x 1.0 x 1.0 cm; homogeneous echogenicity, expected vascular flow. Isthmus: 0.3 cm Nodules: None DIVISION OF RADIOLOGY Provider, [facility] - 04/05/2024 * * *Final Report* * * DATE OF EXAM: Apr 05 2024 10:37AM [facility] 1048 - US THYROID/PARATHYROID / PROCEDURE REASON: Thyroid enlargement * * * * Physician Interpretation * * * * EXAMINATION: THYROID ULTRASOUND CLINICAL HISTORY: Thyroid enlargement TECHNIQUE: Sonography and Doppler imaging of the thyroid was performed. Images were obtained and stored in a permanent archive. MQ: UST_1 COMPARISON: None. RESULT: Right Lobe: 4.6 x 1.2 x 1.3 cm; homogeneous echogenicity, expected vascular flow. Left Lobe: 4.4 x 1.0 x 1.0 cm; homogeneous echogenicity, expected vascular flow. Isthmus: 0.3 cm Nodules: None IMPRESSION IMPRESSION: Normal sonographic appearance of the thyroid. Tent Worker: MAXIM Transcribe Date/Time: Apr 05 2024 10:38A Dictated by : CRISTEL MURPHY MD This examination was interpreted and the report reviewed and electronically signed by: CRISTEL MURPHY MD on Apr 05 2024 10:43AM EST [facility] US Thyroid glandOrdered By: Ccf Provider on 04-05-2024 [facility] CNOVon 01-05-2024 CNOV Office Visit (INTMWS ) POLINA THOMSON ([id number]) 1965 F Date Time Provider Department 01/05/24 9:00 AM LAUREL MURRY INTMWS During your visit today, we recorded the following information about you: Pulse Blood pressure Weight 59/minute 100/68 82.1 kg Laurel Murry APRN.WINDOWS ARCHITECT 01/05/2024 10:45 AM Signed SUBJECTIVE Polina Thomson is a 58 year old female here today for a check up on her medical problems. Chief Complaint Patient presents with: Recheck: new medication Results: discuss most recent lab results HPI Polina Thomson is a 58 year old female. She is an established patient of Alejandrina Graham MD. Here today for follow up. Last visit we started propranolol to help anxiety and blood pressure and reduced her Effexor dose. Overall she is feeling pretty well. Mood is stable. The 10-year ASCVD risk score (John DK, et al., 2019) is: 1.1% Values used to calculate the score: Age: 58 years Sex: Female Is Non- : No Diabetic: No Tobacco smoker: No Systolic Blood Pressure: 100 mmHg Is BP treated: No HDL Cholesterol: 66 mg/dL Total Cholesterol: 199 mg/dL Her medications were reviewed today and her list is now up to date. Medications Current Outpatient Medications Medication Sig venlafaxine ER (EFFEXOR XR) 37.5 mg 24 hr capsule Take 1 capsule by mouth once daily. propranolol ER (INDERAL LA) 60 mg 24 hr capsule Take 1 capsule by mouth once daily. Multivitamins-Minerals -Lutein (MULTIVITAMIN 50 PLUS) tab Take 1 tablet by mouth once daily. albuterol HFA (PROVENTIL HFA, VENTOLIN HFA) 90 mcg/actuation inhaler Inhale 2 Puffs as instructed every 4 hours as needed for wheezing/shortness of breath. LORazepam (ATIVAN) 0.5 mg Take 0.5 mg by mouth. (Patient not taking: Reported on 01/05/2024) No current facility-administered medications for this visit. ALLERGIES Allergen Reactions Perfumes Shortness of Breath coughing Seasonal Allergies Other: See Comments Sneezing, runny nose ACTIVE PROBLEM LIST Anxiety and Depression - 09/22/2023 Moderate Persistent Asthma Without Complication - 09/22/2023 Hyperlipidemia - 12/15/2022 Social History Tobacco Use Smoking status: Former Smokeless tobacco: Never Vaping Use Vaping Use: Never used Substance Use Topics Alcohol use: Not Currently Drug use: Never Review of Systems Respiratory: Negative. Cardiovascular: Negative. OBJECTIVE BP 100/68 Pulse 59 Wt 181 lb (82.1kg) SpO2 98% Physical Exam Vitals and nursing note reviewed. Constitutional: General: She is awake. She is not in acute distress. Appearance: Normal appearance. She is well-developed and well-groomed. She is not ill-appearing, toxic-appearing or diaphoretic. HENT: Head: Normocephalic. Right Ear: External ear normal. Left Ear: External ear normal. Nose: Nose normal. Eyes: General: Vision grossly intact. Conjunctiva/sclera: Conjunctivae normal. Pupils: Pupils are equal, round, and reactive to light. Neck: Vascular: No JVD. Trachea: Trachea normal. Cardiovascular: Rate and Rhythm: Normal rate and regular rhythm. Pulses: Normal pulses. Heart sounds: Normal heart sounds. No murmur heard. Pulmonary: Effort: Pulmonary effort is normal. No accessory muscle usage, prolonged expiration or respiratory distress. Breath sounds: Normal breath sounds. Musculoskeletal: Cervical back: Neck supple. Skin: General: Skin is warm and dry. Capillary Refill: Capillary refill takes less than 2 seconds. Neurological: General: No focal deficit present. Mental Status: She is alert and oriented to person, place, and time. Mental status is at baseline. Psychiatric: Attention and Perception: Attention and perception normal. Mood and Affect: Mood and affect normal. Speech: Speech normal. Behavior: Behavior normal. Behavior is cooperative. Thought Content: Thought content normal. Cognition and Memory: Cognition and memory normal. Judgment: Judgment normal. ASSESSMENT/PLAN: 1. Primary hypertension - ICD9: 401.9, ICD10: I10 (primary diagnosis) - Controlled - Continue current medications - Recommend home blood pressure monitoring, to bring results to next visit - Encouraged sodium restriction, DASH or Mediterranean diet - Recommend regular aerobic exercise 2. Anxiety and depression - ICD9: 300.00, 311, ICD10: F41.9, F32.A Stable. 3. Hyperlipidemia, unspecified hyperlipidemia type - ICD9: 272.4, ICD10: E78.5 - Controlled - Counseled on healthy diet and regular exercise Portions of this note have been entered by ancillary staff. I have reviewed and when necessary edited, so that they are an adequate record of my encounter with this patient Please note that parts of this document were created using voice recognition software and therefore may contain grammatical errors. Patient verbalizes understanding (more content not included)... Normal [facility] CNCOon 12-30-2023 CNCO HNO ID: [id number] Author: COORDINATOR, MAMMOGRAPHY, ? Service: ? Author Type: Physician Type: Letter Filed: 12/30/2023 08:36 Note Text: December 30, 2023 PID: [id number] Polina Thomson [address] [place] [address] Dear Ms. Thomson, We are pleased to inform you that the results of your recent breast imaging exam on 12/29/2023 are normal. Your mammogram demonstrates that you have dense breast tissue, which could hide abnormalities. Dense breast tissue, in and of itself, is a relatively common condition. Therefore, this information is not provided to cause undue concern; rather, it is to raise your awareness and promote discussion with your health care provider regarding the presence of dense breast tissue in addition to other risk factors. Early detection of cancer is very important. We also understand recommendations regarding breast cancer screening are controversial. Please discuss with your primary care provider which strategy is best for you and whether a mammogram is right for you. Your imaging studies and report will be kept on file at [facility] as part of your permanent medical record and are available for your continuing care. Thank you for allowing us to help in meeting your health care needs. Sincerely, Dr. Head Interpreting Radiologist [facility] (Normal over 40) Normal [facility] TORSTEN SCREENINGon 12-29-2023 [facility] SCREENING * * *Final Report* * * DATE OF EXAM: Dec 29 2023 9:08AM WRW [id number] - [facility] SCREENING / PROCEDURE REASON: Encounter for screening mammogram for breast cancer * * * * Physician Interpretation * * * * RESULT: #[id number] - TORSTEN SCREENING BILATERAL DIGITAL SCREENING MAMMOGRAM WITH CAD: 12/29/2023 HISTORY: /Screening Mammogram - patient reports NO breast symptoms /priors available for comparison Encounter For Screening Mammogram For Breast Cancer. RESULT: TECHNIQUE: The study was acquired using full field digital technology and interpreted from soft copy. Current study was also evaluated with a Computer Aided Detection (CAD). Comparison is made to exams dated: 07/21/2021 mammogram, 11/23/2018 mammogram, and 11/23/2018 ultrasound - [facility]. The breasts are heterogeneously dense, which may obscure small masses. No significant masses, calcifications, or other findings are seen in either breast. There has been no significant interval change. IMPRESSION: NEGATIVE There is no mammographic evidence of malignancy. A 1 year screening mammogram is recommended. Alisa Head M.D., cp/marcos:12/30/2023 08:36:03 [employer] Salesperson(s): RT Ravindra(R)(M), [facility] letter sent: Normal over 40 Mammogram BI-RADS: 1 Negative Multiple national specialty organizations have released breast cancer screening guidelines for women at average risk for developing breast cancer - guidelines that are based on both evidence and opinion, yet differ on when to start and how often to screen for breast cancer. With representation from Breast Imaging, Internal Medicine, Women's Health, Family Medicine, and Medical/Surgical Oncology, the [facility] has carefully reviewed the data and reached the following consensus: 1) All women should engage in shared decision-making with their providers to decide when to start and how often to screen; 2) All women should have the opportunity to start screening mammography at age 40; 3) For women ages 45-55, we recommend annual screening mammograms; 4) For women ages 55 and over, we support both the transition from an annual to a biennial interval if this aligns more with patient's values and preferences, or continuation with annual screening; 5) All women should discuss with their providers when to stop screening mammograms. Tent Worker: Marcos Transcribe Date/Time: Dec 29 2023 8:57A Dictated by: ALISA HEAD MD This examination was interpreted and the report reviewed and electronically signed by: ALISA HEAD MD on Dec 30 2023 8:36AM EST [id number] Normal [facility] Lipid 1996 panelon 4 Cholesterol [Mass/Vol] 199 mg/dL Normal <200 [facility] Comment on above: Order Comment: Speci men Type: BLOOD SPECIMENOrdering Facility: [facility] Address: [address] [place] [address] Result Comment: <200 mg/dL, Desirable 200-239 mg/dL, Borderline high >239 mg/dL, High Performed By: #### 2 4331-1 ####[facility] LABCLIA [id number] [place] [address] [place] Cholesterol in HDL [Mass/Vol] 66 mg/dL Normal >39 [facility] Comment on above: Order Comment: Speci men Type: BLOOD SPECIMENOrdering Facility: [facility] Address: [address] [place] [address] Result Comment: 40-5 9 mg/dL, Acceptable >59 mg/dL, High: Negative risk factor for coronary heart disease <40 mg/dL, Low: Positive risk factor for coronary heart disease Performed By: #### 2 4331-1 ####[facility] LABCLIA [id number] [place] [address] [place] Cholesterol in LDL [Mass/Vol] 116 mg/dL High <100 [facility] Comment on above: Order Comment: Speci men Type: BLOOD SPECIMENOrdering Facility: [facility] Address: [address] [place] [address] Result Comment: <100 mg/dL, Optimal 100-129 mg/dL, Near optimal/above optimal 130-159 mg/dL, Borderline high 160-189 mg/dL, High >189 mg/dL, Very high Secondary prevention optimal LDL Cholesterol levels are recommended to be < 70 mg/dL Performed By: #### 2 4331-1 ####[facility] LABCLIA [id number] [place] [address] [place] Cholesterol in LDL/Cholesterol in HDL [Mass ratio] 1.76 {ratio} Normal <2.54 [facility] Comment on above: Order Comment: Korey judge Type: BLOOD SPECIMENOrdering Facility: [facility] Address: [address] [place] [address] Result Comment: True nava: 1. National Cholesterol Education Program ATP III Guideline At-A-Glance Quick Desk Reference: National Heart, Lung, and Blood Debary. National Institutes of Health. 2001: NIH Publication No. 01-3305. 2. An International Atherosclerosis Society position paper: global recommendations for the management of dyslipidemia: executive summary, Atherosclerosis. 2014: 232(2):410-413. Performed By: #### 2 4331-1 ####[facility] LABCLIA [id number] [place] [address] [place] Cholesterol in VLDL [Mass/Vol] 17 mg/dL Normal <30 [facility] Comment on above: Order Comment: Korey judge Type: BLOOD SPECIMENOrdering Facility: [facility] Address: [address] [place] [address] Performed By: #### 2 4331-1 ####[facility] LABCLIA [id number] [place] [address] [place] Cholesterol non HDL [Mass/Vol] 133 mg/dL High <130 [facility] Comment on above: Order Comment: Korey alfie Type: BLOOD SPECIMENOrdering Facility: [facility] Address: [address] [place] [address] Result Comment: <130 mg/dL, Optimal 130-159 mg/dL, Near optimal/above optimal 160-189 mg/dL, Borderline high 190-219 mg/dL, High >219 mg/dL, Very high Secondary prevention optimal non HDL Cholesterol levels are recommended to be <100 mg/dL Performed By: #### 2 4331-1 ####[facility] LABCLIA [id number] [place] [address] [place] Cholesterol.total/Choles terol in HDL [Mass ratio] 3.02 {ratio} Normal <5.10 [facility] Comment on above: Order Comment: Speci men Type: BLOOD SPECIMENOrdering Facility: [facility] Address: [address] [place] [address] Performed By: #### 2 4331-1 ####[facility] LABCLIA [id number] [place] [address] [place] FASTING TIME 13 hrs Normal [facility] Comment on above: Order Comment: Speci men Type: BLOOD SPECIMENOrdering Facility: [facility] Address: [address] [place] [address] Performed By: #### 2 4331-1 ####[facility] LABCLIA [id number] [place] [address] [place] Triglyceride [Mass/Vol] 84 mg/dL Normal <150 [facility] Comment on above: Order Comment: Speci men Type: BLOOD SPECIMENOrdering Facility: [facility] Address: [address] [place] [address] Result Comment: <150 mg/dL, Normal 150-199 mg/dL, Borderline high 200-499 mg/dL, High >499 mg/dL, Very high Performed By: #### 2 4331-1 ####[facility] LABCLIA [id number] [place] [address] [place] CBC W Auto Differential pane l (Bld)on 09-22-2023 Basophils (Bld) [#/Vol] 0.06 10*3/uL <0.11 k/uL [facility] Basophils/100 WBC (Bld) 1.2 % C [facility] Differential cell count method Nom (Bld) Auto [facility] Eosinophils (Bld) [#/Vol] 0.14 10*3/uL <0.46 k/uL [facility] Eosinophils/100 WBC (Bld) 2.8 % [facility] Erythrocyte distribution width (RBC) [Ratio] 12.4 % 11.5 - 15.0 % [facility] Hematocrit (Bld) [Volume fraction] 41.3 % 36.0 - 46.0 % [facility] Hemoglobin (Bld) [Mass/Vol] 13.4 g/dL 11.5 - 15.5 g/dL [facility] Immature granulocytes (Bld) [#/Vol] <0.10 k/uL [facility] Immature granulocytes/100 WBC (Bld) 0.2 % [facility] Lymphocytes (Bld) [#/Vol] 1.68 10*3/uL 1.00 - 4.00 k/uL [facility] Lymphocytes/100 WBC (Bld) 33.5 % [facility] MCH (RBC) [Entitic mass] 30.0 pg 26. 0 - 34.0 pg [facility] MCHC (RBC) [Mass/Vol] 32.4 g/dL 30.5 - 36.0 g/dL [facility] MCV (RBC) [Entitic vol] 92.4 fL 80.0 - 100.0 fL [facility] Monocytes (Bld) [#/Vol] 0.50 10*3/uL <0.87 k/uL [facility] Monocytes/100 WBC (Bld) 10.0 % [facility] Neutrophils (Bld) [#/Vol] 2.62 10*3/uL 1.45 - 7.50 k/uL [facility] Neutrophils/100 WBC (Bld) 52.3 % [facility] Nucleated RBC (Bld) [#/Vol] <0.01 k/uL [facility] Nucleated RBC/100 WBC (Bld) [Ratio] 0.0 /100 WBC [facility] Platelet mean volume (Bld) [Entitic vol] 10.9 fL 9.0 - 12.7 fL [facility] Platelets (Bld) [#/Vol] 210 10*3/uL 150 - 400 k/uL [facility] RBC (Bld) [#/Vol] 4.47 10*6/uL 3.90 - 5.2 0 m/uL [facility] WBC (Bld) [#/Vol] 5.01 10*3/uL 3.70 - 11. 00 k/uL [facility] Basophils (Bld) [#/Vol] 0.06 10*3/uL Normal <0.11 [facility] Comment on above: Order Comment: Speci men Type: BLOOD SPECIMENOrdering Facility: [facility] Address: [address] [place] [address] Performed By: #### 5 7021-8 ####[facility] LABCLIA [id number] [place] [address] [place] Basophils/100 WBC (Bld) 1.2 % Normal C [facility] Comment on above: Order Comment: Speci men Type: BLOOD SPECIMENOrdering Facility: [facility] Address: [address] [place] [address] Performed By: #### 5 7021-8 ####[facility] LABCLIA [id number] [place] [address] [place] Differential cell count method Nom (Bld) Auto Normal [facility] Comment on above: Order Comment: Speci men Type: BLOOD SPECIMENOrdering Facility: [facility] Address: [address] [place] [address] Performed By: #### 5 7021-8 ####[facility] LABCLIA [id number] [place] [address] [place] Eosinophils (Bld) [#/Vol] 0.14 10*3/uL Normal <0.46 [facility] Comment on above: Order Comment: Speci men Type: BLOOD SPECIMENOrdering Facility: [facility] Address: [address] [place] [address] Performed By: #### 5 7021-8 ####[facility] LABCLIA [id number] [place] [address] [place] Eosinophils/100 WBC (Bld) 2.8 % Normal [facility] Comment on above: Order Comment: Speci men Type: BLOOD SPECIMENOrdering Facility: [facility] Address: [address] [place] [address] Performed By: #### 5 7021-8 ####[facility] LABCLIA [id number] [place] [address] [place] Erythrocyte distribution width (RBC) [Ratio] 12.4 % Normal 11.5-15.0 [facility] Comment on above: Order Comment: Speci men Type: BLOOD SPECIMENOrdering Facility: [facility] Address: [address] [place] [address] Performed By: #### 5 7021-8 ####[facility] LABCLIA [id number] [place] [address] [place] Hematocrit (Bld) [Volume fraction] 41.3 % Normal 36.0-46.0 [facility] Comment on above: Order Comment: Speci men Type: BLOOD SPECIMENOrdering Facility: [facility] Address: [address] [place] [address] Performed By: #### 5 7021-8 ####[facility] LABIA [id number] [place] [address] [place] Hemoglobin (Bld) [Mass/Vol] 13.4 g/dL Normal 11.5-15.5 [facility] Comment on above: Order Comment: Speci men Type: BLOOD SPECIMENOrdering Facility: [facility] Address: [address] [place] [address] Performed By: #### 5 7021-8 ####[facility] LABIA [id number] [place] [address] [place] Immature granulocytes (Bld) [#/Vol] 10*3/uL Normal <0.10 [facility] Comment on above: Order Comment: Speci men Type: BLOOD SPECIMENOrdering Facility: [facility] Address: [address] [place] [address] Performed By: #### 5 7021-8 ####[facility] LABIA [id number] [place] [address] [place] Immature granulocytes/100 WBC (Bld) 0.2 % Normal [facility] Comment on above: Order Comment: Speci men Type: BLOOD SPECIMENOrdering Facility: [facility] Address: [address] [place] [address] Performed By: #### 5 7021-8 ####[facility] LABCLIA [id number] [place] [address] [place] Lymphocytes (Bld) [#/Vol] 1.68 10*3/uL Normal 1.00-4.00 [facility] Comment on above: Order Comment: Speci men Type: BLOOD SPECIMENOrdering Facility: [facility] Address: [address] [place] [address] Performed By: #### 5 7021-8 ####[facility] LABCLIA [id number] [place] [address] [place] Lymphocytes/100 WBC (Bld) 33.5 % Normal [facility] Comment on above: Order Comment: Speci men Type: BLOOD SPECIMENOrdering Facility: [facility] Address: [address] [place] [address] Performed By: #### 5 7021-8 ####[facility] LABCLIA [id number] [place] [address] [place] MCH (RBC) [Entitic mass] 30.0 pg Normal 26.0-34.0 [facility] Comment on above: Order Comment: Speci men Type: BLOOD SPECIMENOrdering Facility: [facility] Address: [address] [place] [address] Performed By: #### 5 7021-8 ####[facility] LABCLIA [id number] [place] [address] [place] MCHC (RBC) [Mass/Vol] 32.4 g/dL Normal 30.5-36.0 [facility] Comment on above: Order Comment: Speci men Type: BLOOD SPECIMENOrdering Facility: [facility] Address: [address] [place] [address] Performed By: #### 5 7021-8 ####[facility] LABCLIA [id number] [place] [address] [place] MCV (RBC) [Entitic vol] 92.4 fL Normal 80.0-100.0 C [facility] Comment on above: Order Comment: Speci men Type: BLOOD SPECIMENOrdering Facility: [facility] Address: [address] [place] [address] Performed By: #### 5 7021-8 ####[facility] LABCLIA [id number] [place] [address] [place] Monocytes (Bld) [#/Vol] 0.50 10*3/uL Normal <0.87 [facility] Comment on above: Order Comment: Speci men Type: BLOOD SPECIMENOrdering Facility: [facility] Address: [address] [place] [address] Performed By: #### 5 7021-8 ####[facility] LABCLIA [id number] [place] [address] [place] Monocytes/100 WBC (Bld) 10.0 % Normal C [facility] Comment on above: Order Comment: Speci men Type: BLOOD SPECIMENOrdering Facility: [facility] Address: [address] [place] [address] Performed By: #### 5 7021-8 ####[facility] LABCLIA [id number] [place] [address] [place] Neutrophils (Bld) [#/Vol] 2.62 10*3/uL Normal 1.45-7.50 [facility] Comment on above: Order Comment: Speci men Type: BLOOD SPECIMENOrdering Facility: [facility] Address: [address] [place] [address] Performed By: #### 5 7021-8 ####[facility] LABCLIA [id number] [place] [address] [place] Neutrophils/100 WBC (Bld) 52.3 % Normal [facility] Comment on above: Order Comment: Speci men Type: BLOOD SPECIMENOrdering Facility: [facility] Address: [address] [place] [address] Performed By: #### 5 7021-8 ####[facility] LABCLIA [id number] [place] [address] [place] Nucleated RBC (Bld) [#/Vol] 10*3/uL Normal <0.01 [facility] Comment on above: Order Comment: Speci men Type: BLOOD SPECIMENOrdering Facility: [facility] Address: [address] [place] [address] Performed By: #### 5 7021-8 ####[facility] LABCLIA [id number] [place] [address] [place] Nucleated RBC/100 WBC (Bld) [Ratio] 0.0 /100 WBC Normal [facility] Comment on above: Order Comment: Speci men Type: BLOOD SPECIMENOrdering Facility: [facility] Address: [address] [place] [address] Performed By: #### 5 7021-8 ####[facility] LABIA [id number] [place] [address] [place] Platelet mean volume (Bld) [Entitic vol] 10.9 fL Normal 9.0-12.7 [facility] Comment on above: Order Comment: Speci men Type: BLOOD SPECIMENOrdering Facility: [facility] Address: [address] [place] [address] Performed By: #### 5 7021-8 ####[facility] LABCLIA [id number] [place] [address] [place] Platelets (Bld) [#/Vol] 210 10*3/uL Normal 150-400 [facility] Comment on above: Order Comment: Speci men Type: BLOOD SPECIMENOrdering Facility: [facility] Address: [address] [place] [address] Performed By: #### 5 7021-8 ####[facility] LABCLIA [id number] [place] [address] [place] RBC (Bld) [#/Vol] 4.47 10*6/uL Normal 3.90-5.20 [facility] Comment on above: Order Comment: Speci men Type: BLOOD SPECIMENOrdering Facility: [facility] Address: [address] [place] [address] Performed By: #### 5 7021-8 ####[facility] LABCLIA [id number] [place] [address] [place] WBC (Bld) [#/Vol] 5.01 10*3/uL Normal 3.70-11.00 [facility] Comment on above: Order Comment: Speci men Type: BLOOD SPECIMENOrdering Facility: [facility] Address: [address] [place] [address] Performed By: #### 5 7021-8 ####[facility] LABCLIA [id number] [address] [place] CNOVon 09-22-2023 CNOV Office Visit (INTMWS ) POLINA THOMSON ([id number]) 1965 F Date Time Provider Department 09/22/23 9:00 AM LAUREL MURRY INTMWS During your visit today, we recorded the following information about you: Pulse Respiration Blood pressure Weight 66/minute 18/minute 130/78 79.9 kg Laurel Murry APRN.WINDOWS ARCHITECT 09/22/2023 12:36 PM Signed SUBJECTIVE Polina Thomson is a 58 year old female here today for a check up on her medical problems. Chief Complaint Patient presents with: Medication Follow-up HPI Polina Thomson is a 58 year old female. She is an established patient of Dr. Graham. She presents today for concerns of medication follow up. Last visit we discussed worsening anxiety and increased her Effexor and gave PRN ativan. Her asthma was also worse so Singulair was prescribed. Overall feeling anxiety is okay. Feels we can decrease the Effexor. Some flashers and floaters of the eyes. Trying to use her glasses more but feels sick at times when using these. Has had some headaches. Ibuprofen helpful. Checking blood pressure at home and this has been high. 140's/90's. Her medications were reviewed today and her list is now up to date. Medications Current Outpatient Medications Medication Sig LORazepam (ATIVAN) 0.5 mg Take 0.5 mg by mouth. Multivitamins-Minerals -Lutein (MULTIVITAMIN 50 PLUS) tab Take 1 tablet by mouth once daily. albuterol HFA (PROVENTIL HFA, VENTOLIN HFA) 90 mcg/actuation inhaler Inhale 2 Puffs as instructed every 4 hours as needed for wheezing/shortness of breath. venlafaxine ER (EFFEXOR XR) 37.5 mg 24 hr capsule Take 1 capsule by mouth once daily. propranolol ER (INDERAL LA) 60 mg 24 hr capsule Take 1 capsule by mouth once daily. No current facility-administered medications for this visit. ALLERGIES Allergen Reactions Perfumes Shortness of Breath coughing Seasonal Allergies Other: See Comments Sneezing, runny nose ACTIVE PROBLEM LIST Anxiety and Depression - 09/22/2023 Moderate Persistent Asthma Without Complication - 09/22/2023 Hyperlipidemia - 12/15/2022 Social History Tobacco Use Smoking status: Former Smokeless tobacco: Never Vaping Use Vaping Use: Never used Substance Use Topics Alcohol use: Not Currently Drug use: Never Review of Systems Eyes: Positive for visual disturbance. Respiratory: Negative. Cardiovascular: Negative. Neurological: Positive for headaches. OBJECTIVE BP 130/78 Pulse 66 Resp 18 Wt 176 lb 1.6 oz (79.9kg) SpO2 99% Physical Exam Vitals and nursing note reviewed. Constitutional: General: She is awake. She is not in acute distress. Appearance: Normal appearance. She is well-developed and well-groomed. She is not ill-appearing, toxic-appearing or diaphoretic. HENT: Head: Normocephalic. Right Ear: External ear normal. Left Ear: External ear normal. Nose: Nose normal. Eyes: General: Vision grossly intact. Extraocular Movements: Extraocular movements intact. Conjunctiva/sclera: Conjunctivae normal. Pupils: Pupils are equal, round, and reactive to light. Neck: Vascular: No JVD. Trachea: Trachea normal. Cardiovascular: Rate and Rhythm: Normal rate and regular rhythm. Pulses: Normal pulses. Heart sounds: Normal heart sounds. No murmur heard. Pulmonary: Effort: Pulmonary effort is normal. No accessory muscle usage, prolonged expiration or respiratory distress. Breath sounds: Normal breath sounds. Musculoskeletal: Cervical back: Neck supple. Skin: General: Skin is warm and dry. Capillary Refill: Capillary refill takes less than 2 seconds. Neurological: General: No focal deficit present. Mental Status: She is alert and oriented to person, place, and time. Mental status is at baseline. Psychiatric: Attention and Perception: Attention and perception normal. Mood and Affect: Mood and affect normal. Speech: Speech normal. Behavior: Behavior normal. Behavior is cooperative. Thought Content: Thought content normal. Cognition and Memory: Cognition and memory normal. Judgment: Judgment normal. ASSESSMENT/PLAN: 1. Primary hypertension - ICD9: 401.9, ICD10: I10 (primary diagnosis) - New diagnosis - Start propranolol to also help anxiety - Recommend home blood pressure monitoring, to bring results to next visit - Encouraged sodium restriction, DASH or Mediterranean diet - Recommend regular aerobic exercise 2. Anxiety and depression - ICD9: 300.00, 311, ICD10: F41.9, F32.A Reduce dose. - VENLAFAXINE ER 37.5 MG CAPSULE,EXTENDED RELEASE 24 HR 3. Moderate persistent asthma without complication - ICD9: 493.90, ICD10: J45.40 - Moderate persistent asthma stable and improved - Continue current medications - Avoidance of triggers recommended 4. Vision disturbance - ICD9: 368.9, ICD10: H53.9 - HGB A1C 5. Encounter for therapeutic drug monitoring - ICD9: V58.83, ICD10: Z51.8 (more content not included)... Normal [facility] Comprehensive metabolic 2000 panelon 09-22-2023 Albumin [Mass/Vol] 4.3 g/dL 3.9 - 4.9 g/dL [facility] ALP [Catalytic activity/Vol] 87 U/L 34 - 123 U/L [facility] ALT [Catalytic activity/Vol] 17 U/L 7 - 38 U/L [facility] Anion gap [Moles/Vol] 9 mmol/L 9 - 18 mmol/L [facility] AST [Catalytic activity/Vol] 24 U/L 13 - 35 U/L [facility] Bilirubin [Mass/Vol] 0.3 mg/dL 0.2 - 1 .3 mg/dL [facility] Calcium [Mass/Vol] 9.5 mg/dL 8.5 - 10. 2 mg/dL [facility] Chloride [Moles/Vol] 105 mmol/L 97 - 10 5 mmol/L [facility] CO2 [Moles/Vol] 26 mmol/L 22 - 30 mmol/L [facility] Creatinine [Mass/Vol] 0.79 mg/dL 0.58 - 0.96 mg/dL [facility] Estimated Glomerular Filtration Rate 88 mL/min/1.73m >=60 mL/min/1.73m [facility] Glucose [Mass/Vol] 82 mg/dL 74 - 99 mg/dL [facility] Potassium [Moles/Vol] 4.3 mmol/L 3.7 - 5.1 mmol/L [facility] Protein [Mass/Vol] 6.6 g/dL 6.3 - 8.0 g/dL [facility] Sodium [Moles/Vol] 140 mmol/L 136 - 144 mmol/L [facility] Urea nitrogen [Mass/Vol] 19 mg/dL 7 - 21 mg/d L [facility] Albumin [Mass/Vol] 4.3 g/dL Normal 3.9-4.9 [facility] Comment on above: Order Comment: Speci men Type: BLOOD SPECIMENOrdering Facility: [facility] Address: [address] [place] [address] Performed By: #### 2 4323-8 ####[facility] LABCLIA [id number] [place] [address] [place] ALP [Catalytic activity/Vol] 87 U/L Normal 34-123 [facility] Comment on above: Order Comment: Speci men Type: BLOOD SPECIMENOrdering Facility: [facility] Address: [address] [place] [address] Performed By: #### 2 4323-8 ####[facility] LABCLIA [id number] [place] [id number] [place] ALT [Catalytic activity/Vol] 17 U/L Normal 7-38 [facility] Comment on above: Order Comment: Speci men Type: BLOOD SPECIMENOrdering Facility: [facility] Address: [address] [place] [id number] Performed By: #### 2 4323-8 ####[facility] LABCLIA [id number] [place] [address] [place] Anion gap [Moles/Vol] 9 mmol/L Normal 9-18 [facility] Comment on above: Order Comment: Speci men Type: BLOOD SPECIMENOrdering Facility: [facility] Address: [address] [place] [address] Performed By: #### 2 4323-8 ####[facility] LABCLIA [id number] [place] [address] [place] AST [Catalytic activity/Vol] 24 U/L Normal 13-35 [facility] Comment on above: Order Comment: Speci men Type: BLOOD SPECIMENOrdering Facility: [facility] Address: [address] [place], [place] [id number] Performed By: #### 2 4323-8 ####[facility] LABCLIA [id number] [place] [address] [place] Bilirubin [Mass/Vol] 0.3 mg/dL Normal 0.2-1.3 [facility] Comment on above: Order Comment: Speci men Type: BLOOD SPECIMENOrdering Facility: [facility] Address: [address] [place], [place] [id number] Performed By: #### 2 4323-8 ####[facility] LABCLIA [id number] [place] [address] [place] Calcium [Mass/Vol] 9.5 mg/dL Normal 8.5-10.2 [facility] Comment on above: Order Comment: Speci men Type: BLOOD SPECIMENOrdering Facility: [facility] Address: [address] [place] [address] Performed By: #### 2 4323-8 ####[facility] LABCLIA [id number] [place] [address] [place] Chloride [Moles/Vol] 105 mmol/L Normal 97-105 [facility] Comment on above: Order Comment: Speci men Type: BLOOD SPECIMENOrdering Facility: [facility] Address: [address] [place] [address] Performed By: #### 2 4323-8 ####[facility] LABCLIA [id number] [place] [address] [place] CO2 [Moles/Vol] 26 mmol/L Normal 22-30 [facility] Comment on above: Order Comment: Speci men Type: BLOOD SPECIMENOrdering Facility: [facility] Address: [address] [place] [address] Performed By: #### 2 4323-8 ####[facility] LABCLIA [id number] [place] [address] [place] Creatinine [Mass/Vol] 0.79 mg/dL Normal 0.58-0.96 [facility] Comment on above: Order Comment: Speci men Type: BLOOD SPECIMENOrdering Facility: [facility] Address: [address] [place] [address] Performed By: #### 2 4323-8 ####[facility] LABCLIA [id number] [place] [address] [place] Creatinine and Glomerular filtration rate.predicted panel (S/P/Bld) 88 mL/min/1.73m??? Normal >=60 [facility] Comment on above: Order Comment: Speci men Type: BLOOD SPECIMENOrdering Facility: [facility] Address: [address] [place] [address] Result Comment: Whit mated Glomerular Filtration Rate (eGFR) is calculated using the 2020 CKD-EPI creatinine equation. This equation utilizes serum creatinine, sex, and age as parameters. The creatinine assay has traceable calibration to isotope dilution-mass spectrometry. Refer to KDIGO guidelines for clinical interpretation. In patients with unstable renal function, e.g. those with acute kidney injury, the eGFR may not accurately reflect actual GFR. Performed By: #### 2 4323-8 ####[facility] LABCLIA [id number] [place] [address] [place] Glucose [Mass/Vol] 82 mg/dL Normal 74-99 [facility] Comment on above: Order Comment: Korey judge Type: BLOOD SPECIMENOrdering Facility: [facility] Address: [address] [place] [address] Result Comment: The [place] Diabetes Association (ADA) provides guidance for cutoff values for fasting glucose and random glucose. The ADA defines fasting as no caloric intake for at least 8 hours. Fasting plasma glucose results between 100 to 125 mg/dL indicate increased risk for diabetes (prediabetes). Fasting plasma glucose results greater than or equal to 126 mg/dL meet the criteria for diagnosis of diabetes. In the absence of unequivocal hyperglycemia, results should be confirmed by repeat testing. In a patient with classic symptoms of hyperglycemia or hyperglycemic crisis, random plasma glucose results greater than or equal to 200 mg/dL meet the criteria for diagnosis of diabetes. Reference: Standards of Medical Care in Diabetes 2016, [place] Diabetes Association. Diabetes Care. 2016.39(Suppl 1). Performed By: #### 2 4323-8 ####[facility] LABCLIA [id number] [place] [id number] [place] Potassium [Moles/Vol] 4.3 mmol/L Normal 3.7-5.1 [facility] Comment on above: Order Comment: Korey judge Type: BLOOD SPECIMENOrdering Facility: [facility] Address: [address] [place] [address] Performed By: #### 2 4323-8 ####[facility] LABCLIA [id number] [address] [address] [place] Protein [Mass/Vol] 6.6 g/dL Normal 6.3-8.0 [facility] Comment on above: Order Comment: Speci men Type: BLOOD SPECIMENOrdering Facility: [facility] Address: [address] [place] [address] Performed By: #### 2 4323-8 ####[facility] LABCLIA [id number] [place] [address] [place] Sodium [Moles/Vol] 140 mmol/L Normal 136-144 [facility] Comment on above: Order Comment: Speci men Type: BLOOD SPECIMENOrdering Facility: [facility] Address: [address] [place] [address] Performed By: #### 2 4323-8 ####[facility] LABIA [id number] [place] [address] [place] Urea nitrogen [Mass/Vol] 19 mg/dL Normal 7-21 [facility] Comment on above: Order Comment: Speci men Type: BLOOD SPECIMENOrdering Facility: [facility] Address: [address] [place] [address] Performed By: #### 2 4323-8 ####[facility] LABIA [id number] [place] [address] [place] HbA1c (Bld)on 09-22-2023 Average glucose Estimated from glycated hemoglobin (Bld) [Mass/Vol] 111 mg/dL [facility] HbA1c (Bld) [Mass fraction] 5.5 % 4.3 - 5.6 % [facility] Average glucose Estimated from glycated hemoglobin (Bld) [Mass/Vol] 111 mg/dL Normal [facility] Comment on above: Order Comment: Speci men Type: BLOOD SPECIMENOrdering Facility: [facility] Address: [address] [place] [address] Result Comment: eAG: (Estimated average glucose) is a calculated value from HgbA1c and is employee's representative of the average blood glucose level in the last 2-3 month period. Performed By: #### 5 5454-3 ####[facility] LABCLIA [id number] [address] STATES [place] [facility] HbA1c (Bld) [Mass fraction] 5.5 % Normal 4.3-5.6 [facility] Comment on above: Order Comment: Speci men Type: BLOOD SPECIMENOrdering Facility: [facility] Address: [address] [place] [address] Result Comment: [place] Diabetes Association guidelines indicate that patients with HgbA1c in the range 5.7-6.4% are at increased risk for development of diabetes, and intervention by lifestyle modification may be beneficial. HgbA1c greater or equal to 6.5% is considered diagnostic of diabetes. Performed By: #### 5 5454-3 ####[facility] LABCLIA [id number] [address] [place] CBC W Auto Differential pane l (Bld)on 12-15-2022 Basophils (Bld) [#/Vol] 0.06 10*3/uL <0.11 k/uL [facility] Basophils/100 WBC (Bld) 1.2 % [facility] Differential cell count method Nom (Bld) Auto [facility] Eosinophils (Bld) [#/Vol] 0.08 10*3/uL <0.46 k/uL [facility] Eosinophils/100 WBC (Bld) 1.7 % [facility] Erythrocyte distribution width (RBC) [Ratio] 11.9 % 11.5 - 15.0 % [facility] Hematocrit (Bld) [Volume fraction] 42.3 % 36.0 - 46.0 % [facility] Hemoglobin (Bld) [Mass/Vol] 14.0 g/dL 11.5 - 15.5 g/dL [facility] Immature granulocytes (Bld) [#/Vol] <0.10 k/uL [facility] Immature granulocytes/100 WBC (Bld) 0.4 % [facility] Lymphocytes (Bld) [#/Vol] 1.51 10*3/uL 1.00 - 4.00 k/uL [facility] Lymphocytes/100 WBC (Bld) 31.3 % [facility] MCH (RBC) [Entitic mass] 29.9 pg 26. 0 - 34.0 pg [facility] MCHC (RBC) [Mass/Vol] 33.1 g/dL 30.5 - 36.0 g/dL [facility] MCV (RBC) [Entitic vol] 90.4 fL 80.0 - 100.0 fL [facility] Monocytes (Bld) [#/Vol] 0.29 10*3/uL <0.87 k/uL [facility] Monocytes/100 WBC (Bld) 6.0 % [facility] Neutrophils (Bld) [#/Vol] 2.87 10*3/uL 1.45 - 7.50 k/uL [facility] Neutrophils/100 WBC (Bld) 59.4 % [facility] Nucleated RBC (Bld) [#/Vol] <0.01 k/uL [facility] Nucleated RBC/100 WBC (Bld) [Ratio] 0.0 /100 WBC [facility] Platelet mean volume (Bld) [Entitic vol] 10.5 fL 9.0 - 12.7 fL [facility] Platelets (Bld) [#/Vol] 230 10*3/uL 150 - 400 k/uL [facility] RBC (Bld) [#/Vol] 4.68 10*6/uL 3.90 - 5.2 0 m/uL [facility] WBC (Bld) [#/Vol] 4.83 10*3/uL 3.70 - 11. 00 k/uL [facility] EMERGENCY REPORTon 2 EMERGENCY REPORT [facility] EMERGENCY ROOM REPORT NAME ACCOUNT SEX AGE ADMIT DISCHARGE PT MED. RECORD# NUMBER DATE DATE TYPE BERTO [id number] F 57 03/25/22 03/26/22 3 POLINA [id number] ROOM: ER DATE OF : 1965 DICTATING PHYSICIAN: Mando Coon ADDENDUM DIAGNOSTIC DATA: Laboratory work showed a white count of 6.2, hemoglobin 14.4, hematocrit 42.2, and platelet count 227,000. D-dimer was elevated at 242. Sodium was 137, potassium 3.8, chloride 101, CO2 of 27.8, BUN 18, creatinine 1.03, and glucose 107. AST was 20, ALT 28, alkaline phosphatase 88, and total bilirubin 0.8. Lipase was normal at 123. Anion gap was normal at 12. Troponin was normal at 4.9. BNP was normal at 59. Urinalysis showed 100 of leukocyte esterase with 1-5 white cells but only a trace of bacteria with a few epithelial cells. She has not complained of any urinary symptoms. Specific gravity was 1.01. CT scan of the chest showed no pulmonary embolism. No thoracic aortic aneurysm or dissection. No air space disease. No pleural effusion or pneumothorax. No adenopathy. Upper abdomen is without acute process. Bones without acute process. CT scan of the abdomen/pelvis showed no evidence of bowel obstruction, hernia, free air or free fluid. There is a mid-hepatic 1.2 cm cyst. The appendix is not seen. There are cecal clips. There is a 1.3 cm mass between the spleen and left kidney, likely a splenule. 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 No hydronephrosis. No acute inflammatory process. The visualized lung bases are clear. EMERGENCY DEPARTMENT COURSE AND TREATMENT: I talked to the patient about being admitted for a stress test, but she did not want to do that. She has had a stress test several times in the past. The most recent was approximately 10 years ago from her description, and I believe that was done at [place]. It was not done here. She really does not want to stay for a stress test. She states that when she sat up and burped her pain pretty much went away. I did talk to her about getting an outpatient gallbladder ultrasound, and she is agreeable to that. I am going to go ahead and order the outpatient gallbladder ultrasound, although she wants to call in to schedule it because she is starting a new job tomorrow. Her schedule is limited due to that, but she will call in and schedule it. I did give her the number for the general surgery clinic because I did feel that if her symptoms persist she probably should have an EGD. The Protonix we gave her here did seem to help, so I wrote her for Protonix 40 mg one p.o. daily, dispense #30 with no refill; Bentyl 20 mg one p.o. every 6 hours as needed for abdominal pain, dispense #30 with no refill, and Zofran ODT 4 mg one p.o. every 8 hours as needed for nausea, dispense #15 with no refill. I had also given her a GI cocktail here and Bentyl 20 mg p.o. She was discharged in improved, clinically stable Page 1 of 2 BERTO, POLINA Emergency Room Report POLINA THOMSON : 1965 condition. If her symptoms persist, I did ask her to return here to the Emergency Department. At some point, she should get a stress test done. She did verbalize understanding of this. She is to follow up with Dr. Graham, her primary care physician, in the next 3 to 5 days. DIAGNOSIS: Abdominal pain. Dictated By: Mando Coon DO 03/26/22 02:01 JOB #: [id number] Transcribed By: deuce 03/27/22 10:57 Electronically signed by: E-Sign: Dr. Mando Coon D.O. 03/29/22 19:20 Page 2 of 2 POLINA THOMSON Emergency Room Report Normal [facility] EMERGENCY REPORT [facility] EMERGENCY ROOM REPORT NAME ACCOUNT SEX AGE ADMIT DISCHARGE PT MED. RECORD# NUMBER DATE DATE TYPE BERTO [id number] F 57 03/25/22 03/26/22 3 POLINA [id number] ROOM: ER DATE OF : 1965 DICTATING PHYSICIAN: Mando Coon Date seen is March 25, 2022 at 2137 hours. HISTORY OF PRESENT ILLNESS: The patient is a 57-year-old female complaining of chest pain between her breasts, as well as periumbilical abdominal pain. Sometimes she will have left midregion abdominal pain as well. She describes it as a burning pain. It started this evening after supper. She states she was cold all day today. He urine has had a foul odor to it, but she has denied any pain with urination. She does admit to some shortness of breath. She states she did start vomiting today. She had about 3 episodes of vomiting, and then she had some dry heaves off and on after that. She does have a history of acid reflux, but she states this does not feel like her reflux. Presently, she rates her chest and abdominal pain as an 8 on a severity scale of 1 to 10. Her physician is Dr. Graham in [place]. PAST MEDICAL HISTORY: Gastroesophageal reflux disease, irritable bowel syndrome. She states she has a history of low blood pressure. PAST SURGICAL HISTORY: Appendectomy and a uterine ablation. ALLERGIES: No known drug allergies. SOCIAL HISTORY: She is not a smoker. She denies any alcohol or drug use. She lives at home with family. REVIEW OF SYSTEMS: The patient does admit to chest pain and shortness of breath. She denies any cough, sputum, wheezing. She does complain of periumbilical and left midregion abdominal pain with nausea and vomiting. She denies any diarrhea, constipation, melena, hematochezia. She denies any urinary urgency, frequency, dysuria. She denies any headache, numbness, unsteady gait, weakness, neck or back pain, joint pain, skin rash or swelling, hives, hayfever, or swollen glands. Further review of systems is negative. PHYSICAL EXAMINATION: VITAL SIGNS: Temperature is 99.1, pulse 80, respiratory rate 17, blood pressure 127/62, pulse oximetry 97% on room air, weight 175 pounds. GENERAL APPEARANCE: The patient is alert and oriented x3. She presently appears in some mild distress secondary to chest and abdominal pain, but she is pleasant and cooperative. She makes eye contact. She speaks in full sentences. HEENT: Head Page 1 of 2 POLINA THOMSON Emergency Room Report POLINA THOMSON : 1965 appears atraumatic. Pupils are equal and reactive to light. Red reflex intact bilaterally. Extraocular muscles are intact. No conjunctival injection. No scleral icterus or lid edema. Nose: Exhibits no rhinorrhea or epistaxis. Mouth: Mucous membranes are moist. No pharyngeal erythema. Uvula is midline and elevates. NECK: Neck is supple. Trachea is midline. No JVD or lymphadenopathy. No posterior cervical tenderness. No nuchal rigidity. LUNGS: Clear to auscultation bilaterally. No adventitious sounds are noted. No accessory muscle use noted. CV: Heart rate and rhythm are regular without murmur. ABDOMEN: Abdomen is soft with some periumbilical tenderness on palpation. Bowel sounds are present x4 quadrants and normoactive. The patient does exhibit some voluntary guarding, but no involuntary guarding. No rebound. No palpable abdominal masses. No hepatosplenomegaly. No abdominal distension. BACK: Back exhibits no midline or paraspinal region tenderness. No increased paraspinal muscle rigidity. Negative Nilesh's sign. EXTREMITIES: No edema or cyanosis. Peripheral pulses are intact. No motor or sensory deficits are noted. 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 SKIN: Skin is warm and dry. No diaphoresis or rash. NEUROLOGIC: Neurologic examine shows the patient to be alert and oriented x4. No motor or sensory deficits are noted. Normal speech. No conversational dyspnea. EMERGENCY DEPARTMENT COURSE AND TREATMENT: Presently, I do have a CT scan of the chest, abdomen, and pelvis pending along with screening blood work and EKG. We will then reevaluate. Dictated By: Mando Coon DO 03/25/22 22:48 JOB #: [id number] Transcribed By: am 03/27/22 08:32 Electronically signed by: E-Sign: Dr. Mando Coon D.O. 03/29/22 19:19 Page 2 of 2 POLINA THOMSON Emergency Room Report Normal [facility] CBC + DIFFon 03-26-2022 Baso # 0.00 x10EE3/UL Normal 0.00 - 0.10 [facility] Comment on above: Performed By: #### 2 26604 #### [place] [address] Basophils/100 WBC (Bld) 0.2 % Normal 0.0 - 2.0 [facility] Comment on above: Performed By: #### 2 92597 #### [place] [address] CBC + DIFF Normal [facility] Comment on above: Result Comment: CBC- COMPLETE BLOOD COUNT Performed By: #### 2 97454 #### [place] [address] EO # 0.00 x10EE3/UL Normal 0.00 - 0.50 [facility] Comment on above: Performed By: #### 2 15026 #### [place] [id number] Eosinophils/100 WBC (Bld) 0.8 % Normal 0.0 - 7.0 [facility] Comment on above: Performed By: #### 2 42284 #### [place] [address] Erythrocyte distribution width (RBC) [Ratio] 12.8 % Normal 12.0 - 15.6 [facility] Comment on above: Performed By: #### 2 56636 #### [facility],[address] [place] [address] Hematocrit (Bld) [Volume fraction] 42.2 % Normal 34.0 - 46.0 [facility] Comment on above: Performed By: #### 2 19713 #### [facility],[address] [place] [address] Hemoglobin (Bld) [Mass/Vol] 14.4 g/dL Normal 12.0 - 16.0 [facility] Comment on above: Performed By: #### 2 57127 #### [facility],[address] [place] [address] Lymph # 0.50 x10EE3/UL Low 0.80 - 2.80 [facility] Comment on above: Performed By: #### 2 89587 #### [facility],[address] [place] [address] Lymphocytes/100 WBC (Bld) 7.3 % Low 20.0 - 45.0 [facility] Comment on above: Performed By: #### 2 90318 #### [facility],[address] [place] [address] MANUAL DIFF N/A Normal [facility] Comment on above: Performed By: #### 2 09467 #### [facility],[address] [place] [address] MCH (RBC) [Entitic mass] 30 pg Normal 27 - 33 [facility] Comment on above: Performed By: #### 2 19399 #### [facility],[address] [place] [address] MCHC 34 X10 3 Normal 32 - 36 [facility] Comment on above: Performed By: #### 2 01415 #### [facility],[address] [place] [address] MCV (RBC) [Entitic vol] 89 fL Normal 80 - 99 [facility] Comment on above: Performed By: #### 2 64700 #### [facility],[address] [place] [address] Buchanan # 0.20 x10EE3/UL Normal 0.20 - 1.00 [facility] Comment on above: Performed By: #### 2 43226 #### [facility],[address] [place] [address] MONOS % 3.0 % Normal 0.0 - 10.0 [facility] Comment on above: Performed By: #### 2 11986 #### [facility],[address] [place] [address] Morphology Venancio (Bld) [Interp] N/A Normal [facility] Comment on above: Result Comment: {CD] Performed By: #### 2 06879 #### [facility],[address] [place] [address] Neut # 5.50 x10EE3/UL Normal 1.50 - 7.10 [facility] Comment on above: Performed By: #### 2 40505 #### [facility],[address] [place] [address] Neutrophils/100 WBC (Bld) 88.7 % High 46.0 - 76.0 [facility] Comment on above: Performed By: #### 2 48038 #### [facility],[address] [place] [address] PLATELET 227 x10EE3/UL Normal 150 - 450 [facility] Comment on above: Performed By: #### 2 96507 #### [facility],[address] [place] [address] Platelet mean volume (Bld) [Entitic vol] 8.2 fL Normal 6.6 - 10.5 [facility] Comment on above: Result Comment: AUTO MATED DIFFERENTIAL Performed By: #### 2 57323 #### [facility],[address] [place] [address] RBC 4.76 x 10EE6/UL Normal 4.10 - 5.30 [facility] [facility] Comment on above: Performed By: #### 2 67114 #### [facility],[address] [place] [address] 08188 WBC 6.2 x 10EE3/UL Normal 4.5 - 10.8 [facility] Comment on above: Performed By: #### 2 74415 #### [facility],[address] [place] [address] 37196 CMP with eGFRon 03-26-2022 AGE 57 years Normal [facility] Comment on above: Performed By: #### 2 63402 #### [facility],[address] [place] [address] 28146 Albumin [Mass/Vol] 4.0 g/dL Normal 3.4 - 5.0 [facility] Comment on above: Performed By: #### 2 61947 #### [facility],[address] [place] [address] 67199 Albumin/Globulin [Mass ratio] 1.3 {ratio} Normal 0.9 - 1.6 [facility] Comment on above: Performed By: #### 2 71220 #### [facility],[address] [place] [address] 89414 ALK PHOS 88 U/L Normal 46 - 116 [facility] Comment on above: Performed By: #### 2 58908 #### [facility],[address] [place] [address] 82615 ALT [Catalytic activity/Vol] 28 U/L Normal 14 - 59 [facility] Comment on above: Performed By: #### 2 49942 #### [facility],[address] [place] [address] 99995 Anion gap [Moles/Vol] 12 mmol/L Normal 10 - 20 [facility] Comment on above: Performed By: #### 2 17716 #### [facility],[address] [place] [address] 02309 AST [Catalytic activity/Vol] 20 U/L Normal 13 - 39 [facility] Comment on above: Performed By: #### 2 18714 #### [facility],[address] [place] [address] 85171 B/C RATIO 17 ratio Normal 0 - 30 [facility] Comment on above: Performed By: #### 2 60938 #### [facility],[address] [place] [address] 60825 Bilirubin [Mass/Vol] 0.8 mg/dL Normal 0.2 - 1.0 [facility] Comment on above: Performed By: #### 2 55655 #### [facility],[address] [place] [address] 37808 Calcium [Mass/Vol] 9.0 mg/dL Normal 8.5 - 10.1 [facility] Comment on above: Performed By: #### 2 03968 #### [facility],[address] [place] [address] 15080 Chloride [Moles/Vol] 101 mmol/L Normal 98 - 107 [facility] Comment on above: Performed By: #### 2 91950 #### [facility],[address] [place] [address] 24485 CMP with eGFR Normal [facility] Comment on above: Result Comment: COMP REHENSIVE METABOLIC PANEL Performed By: #### 2 26589 #### [facility],[address] [place] [address] 30890 CO2 [Moles/Vol] 27.8 mmol/L Normal 21.0 - 32.0 [facility] Comment on above: Performed By: #### 2 96487 #### [facility],[address] [place] [address] 01348 Creatinine [Mass/Vol] 1.03 mg/dL High 0.55 - 1.02 [facility] Comment on above: Performed By: #### 2 85424 #### [facility],[address] [place] [address] 47702 eGFR 56 ML/MINUTE Low 60 - 999 [facility] Comment on above: Performed By: #### 2 60410 #### [facility],[address] [place] [address] 41964 GFR/1.73 sq M.predicted among non-blacks MDRD (S/P/Bld) [Vol rate/Area] mL/min/{1.73_m2} Normal 60 - 999 [facility] Comment on above: Result Comment: ACCO RDING TO THE NATIONAL KIDNEY DISEASE EDUCATION PROGRAM(NKDE), A NORMAL eGFR IS A VALUE GREATER THAN OR EQUAL TO 60 ML/MIN/1.73 SQ METERS. CHRONIC KIDNEY DISEASE: <60mL/MIN/1.73 SQ METERS KIDNEY FAILURE: <15mL/MIN/1.73 SQ METERS THIS TEST SHOULD ONLY BE USED FOR PATIENTS 18 YEARS OF AGE AND OLDER. Performed By: #### 2 79974 #### [facility],[address] [place] [address] 81610 Globulin (S) [Mass/Vol] 3.2 g/dL Normal 1.5 - 3.8 [facility] Comment on above: Performed By: #### 2 58300 #### [facility],[address] [place] [address] 14347 Glucose [Mass/Vol] 107 mg/dL High 74 - 106 [facility] Comment on above: Performed By: #### 2 39333 #### [facility],[address] [place] [address] 70076 Potassium [Moles/Vol] 3.8 mmol/L Normal 3.5 - 5.1 [facility] Comment on above: Performed By: #### 2 74584 #### [facility],[address] [place] [address] 10442 Protein [Mass/Vol] 7.2 g/dL Normal 6.4 - 8.2 [facility] Comment on above: Performed By: #### 2 90577 #### [facility],[address] [place] [address] 94721 Sodium [Moles/Vol] 137 mmol/L Normal 136 - 145 [facility] Comment on above: Performed By: #### 2 34942 #### [facility],[address] [place] [address] 35863 Urea nitrogen [Mass/Vol] 18 mg/dL Normal 7 - 18 [facility] Comment on above: Performed By: #### 2 58610 #### [facility],[address] [place] [address] ABDOMEN/PELVIS [facility] 2021 CT ABDOMEN/PELVIS [address] [address] Patient: POLINA THOMSON Phone#: : 1965 Age: 57 Gender: F Pt. Type: ER Account: [id number] Location: [facility] Ordering: MANDO COON Exam Date: 03/25/2022/23:15 Family Phys: Charge Code: [id number] Physician: Quay Order #: [id number] DLP Dose#: 14.20 PROCEDURE: CT ABDOMEN/PELVIS WITH CONTRAST COMPARISON: None. INDICATIONS: Abdominal pain. TECHNIQUE: After obtaining the patient's consent, CT images were created with non-ionic intravenous contrast material. All CT scans at this facility use dose modulation, iterative reconstruction, and/or weight based dosing when appropriate to reduce radiation dose to as low as reasonably achievable. IV CONTRAST: Omnipaque 350,100ml TOTAL DOSE: 14.20 CTDIvol(mGy) FINDINGS: LIVER: Fatty changes of the liver are present. Right hepatic cyst is present. BILIARY: Normal. No visible dilatation or calcification. PANCREAS: Normal. No lesion, fluid collection, ductal dilatation, or atrophy. SPLEEN: Splenule is present. No enlargement or focal lesion. KIDNEYS: Horseshoe kidney is present. Prominent right extrarenal pelvis is present. Left peripelvic renal cysts present. ADRENALS: Normal. No mass or enlargement. AORTA/VASCULAR: Normal. No aneurysm or dissection. RETROPERITONEUM: Normal. No mass or adenopathy. BOWEL/MESENTERY: Mucosal thickening is present involving small bowel. Small bowel is fluid-filled but not dilated. Findings are consistent with enteritis. Scattered nonspecific mesenteric lymph nodes are present. ABDOMINAL WALL: Normal. No mass or hernia. URINARY BLADDER: Normal. No visible focal wall thickening, lesion, or calculus. PELVIC NODES: Normal. No adenopathy. PELVIC ORGANS: Normal. No visible mass. Pelvic organs appropriate for patient age. Continued Report - Page 2 of 2 Patient: POLINA THOMSON Phone#: : 1965 Age: 57 Gender: F Pt. Type: ER Account: [id number] Location: 052 Ordering: MANDO COON Exam Date: 03/25/202223:15 Family Phys: Charge Code: [id number] Physician: Quay Order #: [id number] DLP Dose#: 14.20 BONES: Normal. No bony lesion or fracture. LUNG BASES: Normal. No visible pulmonary or pleural disease. OTHER: Negative. CONCLUSION: 1. Findings consistent with enteritis. 2. Horseshoe kidney is present. Dictated by: Alexandria Brennan MD on 03/26/2022 at 9:38 Approved by: Alexandria Brennan MD on 03/26/2022 at 9:[address] [facility] [address] CHEST (PE PROTOCOL)on CT CHEST (PE PROTOCOL) [place] [address] Patient: POLINA THOMSON Phone#: : 1965 Age: 57 Gender: F Pt. Type: ER Account: [id number] Location: 052 Ordering: MANDO COON Exam Date: 03/25/2022/23:15 Family Phys: Charge Code: [id number] Physician: Quay Order #: [id number] DLP Dose#: 5.30 PROCEDURE: CT CHEST WITH CONTRAST FOR PE COMPARISON: None. INDICATIONS: Embolism. TECHNIQUE: After obtaining the patient's consent, CT images were obtained with non-ionic intravenous contrast material. Multi-planar images were created to optimize visualization of vascular anatomy with MPR/MIPS and 3D imaging. All CT scans at this facility use dose modulation, iterative reconstruction, and/or weight based dosing when appropriate to reduce radiation dose to as low as reasonably achievable. IV CONTRAST: Omnipaque 350,100ml TOTAL DOSE: 5.30 CTDIvol(mGy) FINDINGS: VASCULATURE: Normal. No visible pulmonary arterial thrombus or attenuation. AORTA: Normal. No aneurysm or dissection. LUNGS: Normal. No visible pulmonary disease. NATALIIA: Normal. No mass or adenopathy. MEDIASTINUM: Normal. No mass or adenopathy. CARDIAC: Normal. No enlargement, pericardial thickening, or significant calcification. PLEURA: Normal. No mass or effusion. CHEST WALL: Normal. No mass or axillary adenopathy. LIMITED ABDOMEN: Normal. Limited images of the upper abdomen are unremarkable. BONES: Normal. No bony lesion or fracture. OTHER: Negative. CONCLUSION: No acute disease. There is no evidence of pulmonary embolus. Dictated by: Alexandria Brennan MD on 03/26/2022 at 9:41 Continued Report - Page 2 of 2 Patient: POLINA THOMSON Phone#: : 1965 Age: 57 Gender: F Pt. Type: ER Account: [id number] Location: [facility] Ordering: MANDO COON Exam Date: 03/25/2022/23:15 Family Phys: Charge Code: [id number] Physician: Quay Order #: [id number] DLP Dose#: 5.30 Approved by: Alexandria Brennan MD on 03/26/2022 at 9:44 Normal [facility] D-DIMER, QUANTITATIVEon 08 D-DIMER QUANT 242 ng/ml High 0 - 230 [facility] Comment on above: Performed By: #### 2 42166 #### [facility],[address] [place] [address] D-DIMER, QUANTITATIVE Normal [facility] Comment on above: Result Comment: PERCY T D-DIMER Performed By: #### 2 66702 #### [facility],[address] [place] [address] 36428 LIPASEon 03-26-2022 Lipase [Catalytic activity/Vol] 123.0 U/L Normal 73.0 - 393 [facility] Comment on above: Performed By: #### 2 07099 #### [facility],[address] [place], [place] [id number] NT-proBNPon 03-26-2022 Natriuretic peptide B (Bld) [Mass/Vol] 59 pg/mL Normal 0 - 125 [facility] Comment on above: Performed By: #### 2 19693 #### [facility],[address] [place] [address] TROPONIN I, HIGH SENSITIVITY on 03-26-2022 HS TROPONIN 4.9 pg/mL Normal 0.0 - 51.4 [facility] Comment on above: Performed By: #### 2 75936 #### [facility],[address] [place], [place] [address] URINALYSIS WITH MICROSCOPYon 03-26-2022 Amorphous NONE Normal [facility] Comment on above: Performed By: #### 2 83699 #### [facility],[address] [place] [address] 97096 Bacteria TRACE Normal [facility] Comment on above: Performed By: #### 2 60842 #### [facility],[address] [place] [address] 43453 Bilirubin Ql (U) Negative Normal NORMAL: NEGATIVE [facility] Comment on above: Performed By: #### 2 00558 #### [facility],[address] [place] [address] 95821 Casts NONE Normal [facility] Comment on above: Performed By: #### 2 81606 #### [facility],[address] [place] [address] 75994 Clarity (U) CLEAR Normal NORMAL: CLEAR [facility] Comment on above: Performed By: #### 2 01989 #### [facility],[address] [place] [address] 43398 Color (U) p.yel Normal NORMAL: YELLOW [facility] Comment on above: Performed By: #### 2 27855 #### [facility],[address] [place] [address] 99498 Crystals LM Nom (Urine sed) NONE Normal [facility] Comment on above: Performed By: #### 2 55995 #### [facility],[address] [place] [address] 03747 Epi Cells FEW Normal [facility] Comment on above: Performed By: #### 2 48566 #### [facility],[address] [place], [place] [address] Glucose Ql (U) NORM Normal NORMAL: NORMAL [facility] Comment on above: Performed By: #### 2 52993 #### [facility],[address] [place], [place] [address] Hemoglobin Ql (U) Negative Normal NORMAL: NEGATIVE [facility] Comment on above: Performed By: #### 2 60982 #### [facility],[address] [place] [address] 07350 Ketone Negative Normal NORMAL: NEGATIVE [facility] Comment on above: Performed By: #### 2 59788 #### [facility],[address] [place] [address] 55063 Leukocytes 100 Abnormal NORMAL: NEGATIVE [facility] Comment on above: Result Comment: URIN E MICROSCOPIC Performed By: #### 2 88600 #### [facility],[address] [place], [place] [address] Mucous NONE Normal [facility] Comment on above: Performed By: #### 2 49804 #### [facility],[address] [place] [address] 74676 Nitrite Ql (U) Negative Normal NORMAL: NEGATIVE [facility] Comment on above: Performed By: #### 2 05621 #### [facility],[address] [place] [address] pH (U) 7 [pH] Normal NORMAL: 5.0-8.0 [facility] Comment on above: Performed By: #### 2 80245 #### [facility],[address] [place] [address] Protein Ql (U) Negative Normal NORMAL: NEGATIVE [facility] Comment on above: Performed By: #### 2 62652 #### [facility],[address] [place] [address] Rbc NONE Normal 0-3 / hpf [facility] Comment on above: Performed By: #### 2 55096 #### [facility],[address] [place] [address] Sp Tavernier 1.010 Normal NORMAL: 1.010-1.030 [facility] Comment on above: Performed By: #### 2 78111 #### [facility],[address] [place] [address] Specimen Type UNSPECIFIED Normal [facility] Comment on above: Performed By: #### 2 57384 #### [facility],[address] [place] [address] URINALYSIS WITH MICROSCOPY Normal [facility] Comment on above: Result Comment: URIN ALYSIS Performed By: #### 2 92857 #### [facility],[address] [place] [address] Urobilinog NORM Normal NORMAL: NORMAL [facility] Comment on above: Performed By: #### 2 29906 #### [facility],[address] [place] [address] Wbc 1-5 Normal 0-5 / hpf [facility] Comment on above: Performed By: #### 2 51852 #### [facility],[address] [place] [address] Yeast NONE Normal [facility] Comment on above: Performed By: #### 2 70414 #### [facility],[address] [place], [place] [id number] CORONAVIRUS PCR - [facility] 06-30-2021 SARS-CoV-2 (COVID-19) RNA VIJAY+probe Ql (Unsp spec) Negative Normal NORMAL: NEGATIVE [facility] Comment on above: Performed By: #### 2 60082 #### [facility],[address] [place] [address] 03908 SEND TO ? YES Normal [facility] Comment on above: Result Comment: RESU LTS FAXED TO INFECTION [facility]OL. SARS-CoV-2 THIS TEST IS BEING USED UNDER THE FDA EUA PROCEDURE. THIS ASSAY HAS BEEN VALIDATED IN THE [facility] FOR USE WITH NASOPHARYNGEAL SPECIMENS IN [facility]. INTERPRETIVE DATA LABORATORY TEST RESULTS SHOULD ALWAYS BE CONSIDERED IN THE CONTEXT OF CLINICAL OBSERVATIONS AND EPIDEMIOLOGICAL DATA IN MAKING FINAL DIAGNOSIS AND PATIENT MANAGEMENT DECISIONS. PATIENT MANAGEMENT SHOULD FOLLOW CURRENT CDC GUIDELINES. A POSITIVE TEST RESULT FOR COVID-19 INDICATES THAT RNA FROM SARS-CoV-2 WAS DETECTED, AND THE PATIENT IS INFECTED WITH THE VIRUS AND PRESUMED TO BE CONTAGIOUS. A NEGATIVE TEST RESULT FOR THIS TEST MEANS THAT SARS-CoV-2 RNA WAS NOT PRESENT IN THE SPECIMEN ABOVE THE LIMIT OF DETECTION. HOWEVER, A NEGATVIE RESULT DOES NOT RULE OUT COVID-19 AND SHOULD NOT BE USED THE SOLE BASIS FOR TREATMENT OR PATIENT MANAGEMENT DECISIONS. A NEGATIVE RESULT DOES NOT EXCLUDE THE POSSIBILITY OF COVID-19. WHEN DIAGNOSTIC TESTING IS NEGATIVE, THE POSSIBLILTY OF A FALSE NEGATIVE RESULT SHOULD BE CONSIDERED IN THE CONTEXT OF A PATIENT'S RECENT EXPOSURES AND THE PRESENCE OF CLINICAL SIGNS AND SYMPTOMS CONSISTENT WITH COVID-19. THE POSSIBILITY OF A FALSE NEGATIVE RESULT SHOULD ESPECIALLY BE CONSIDERED IF THE PATIENT'S RECENT EXPOSURES OR CLINICAL PRESENTATION INDICATE THAT COVID-19 IS LIKELY, AND DIAGNOSTIC TESTS FOR OTHER CAUSES OF ILLNESS (e.g., OTHER RESPIRATORY ILLNESS) ARE NEGATIVE. IF COVID-19 IS STILL SUSPECTED BASED ON EXPOSURE HISTORY TOGETHER WITH OTHER CLINICAL FINDINGS, RE-TESTED SHOULD BE CONSIDERED BY HEALTHCARE PROVIDERS IN CONSULTATION WITH PUBLIC HEALTH AUTHORITIES. Performed By: #### 2 10725 #### [facility],[address] [place] [address] 26863 Coronavirus 2019on 1 COVID 19 Result PHARMACY RESIDENT Abnormal Negative for COVID19 (SARS CoV2) by PCR. [facility] Comment on above: Result Comment: Posi tive for This test was developed and its performance characteristics determined by [facility]. This test has been authorized by FDA under an Emergency Use Authorization (EUA). This test has been validated in accordance with the FDA's Guidance Document Policy for Diagnostics Testing in Laboratories Certified to Perform High Complexity Testing under CLIA prior to Emergency use Authorization for Coronavirus Disease 2019 during the Public Health Emergency issued on October 14, 2019. COVID19 (SARS This test was developed and its performance characteristics determined by [facility]. This test has been authorized by FDA under an Emergency Use Authorization (EUA). This test has been validated in accordance with the FDA's Guidance Document Policy for Diagnostics Testing in Laboratories Certified to Perform High Complexity Testing under CLIA prior to Emergency use Authorization for Coronavirus Disease 2019 during the Public Health Emergency issued on October 14, 2019. CoV2) by This test was developed and its performance characteristics determined by [facility]. This test has been authorized by FDA under an Emergency Use Authorization (EUA). This test has been validated in accordance with the FDA's Guidance Document Policy for Diagnostics Testing in Laboratories Certified to Perform High Complexity Testing under CLIA prior to Emergency use Authorization for Coronavirus Disease 2019 during the Public Health Emergency issued on October 14, 2019. PCR.(*) This test was developed and its performance characteristics determined by [facility]. This test has been authorized by FDA under an Emergency Use Authorization (EUA). This test has been validated in accordance with the FDA's Guidance Document Policy for Diagnostics Testing in Laboratories Certified to Perform High Complexity Testing under CLIA prior to Emergency use Authorization for Coronavirus Disease 2019 during the Public Health Emergency issued on October 14, 2019. COVID 19 Source PHARMACY RESIDENT PHARMACY RESIDENT Normal [facility] Vital Signs Date Time Vital Sign Value Performing Clinician Facility 01-12-2025 14:06-0400 Body height 170.[address] Alejandrina Graham MD Work Phone: 0(350)306-301800 [place] [address] 01-12-2025 14:06-0400 Body mass index (BMI) [Ratio] 31.5 kg/m2 Dr. Alejandrina Graham MD Work Phone: 5(634)858-173800 [place] [address] 01-12-2025 14:06-0400 Body weight 91.[address] Alejandrina Graham MD Work Phone: 4(956)687-030200 [place] [address] 01-12-2025 14:06-0400 Diastolic blood pressure 69 mm[Hg] Dr. Alejandrina Graham MD Work Phone: 7(002)080-700400 [place] [address] 01-12-2025 14:06-0400 Systolic blood pressure 115 mm[Hg] Dr. Alejandrina Graham MD Work Phone: 2(014)038-293000 [place] [address] 11-29-2024 07:14-0400 Body temperature 97.8 [degF] Dr. Alejandrina Graham MD Work Phone: 5(578)808-172600 [place] [address] 11-29-2024 07:14-0400 Diastolic blood pressure 65 mm[Hg] Dr. Alejandrina Graham MD Work Phone: 3(890)148-76[address] [place] [address] 11-29-2024 07:14-0400 Heart rate 53 /min Dr. Alejandrina Graham MD Work Phone: 9(342)222-23[address] [place] [address] 11-29-2024 07:14-0400 Respiratory rate 16 /min Dr. Alejandrina Graham MD Work Phone: 3(959)524-145600 [place] [address] 11-29-2024 07:14-0400 SaO2% (BldA) [Mass fraction] 94 % Dr. Alejandrina Graham MD Work Phone: 6(367)068-459400 [place] [address] 11-29-2024 07:14-0400 Systolic blood pressure 114 mm[Hg] Dr. Alejandrina Graham MD Work Phone: 5(167)095-75[address] [place] [address] 11-29-2024 05:40-0400 Body height 170.[address] Alejandrina Graham MD Work Phone: 7(243)016-416100 [place] [address] 11-29-2024 05:40-0400 Body mass index (BMI) [Ratio] 31.1 kg/m2 Dr. Alejandrina Graham MD Work Phone: 2(135)682-734400 [place] [address] 11-29-2024 05:40-0400 Body weight [address] Alejandrina Graham MD Work Phone: 6(711)523-714100 [place] [address] 11-23-2024 15:14-0400 Body mass index (BMI) [Ratio] 30 kg/m2 Dr. Alejandrina Graham MD Work Phone: 7(329)578-831400 [place] [address] 11-23-2024 15:14-0400 Body weight 87.[address] Alejandrina Graham MD Work Phone: 6(963)978-530200 [place] [address] 11-23-2024 15:14-0400 Diastolic blood pressure 81 mm[Hg] Dr. Alejandrina Graham MD Work Phone: 5(176)071-066600 [place] [address] 11-23-2024 15:14-0400 Systolic blood pressure 133 mm[Hg] Dr. Alejandrina Graham MD Work Phone: 8(441)719-339400 [place] [address] 11-09-2024 08:06-0400 Body height 170.[address] Alejandrina Graham MD Work Phone: 6(772)776-460800 [place] [address] 11-09-2024 08:06-0400 Body mass index (BMI) [Ratio] 30.7 kg/m2 Dr. Alejandrina Graham MD Work Phone: 0(081)791-337500 [place] [address] 11-09-2024 08:06-0400 Body weight 89.[address] Alejandrina Graham MD Work Phone: 5(335)575-128200 [place] [address] 11-09-2024 08:06-0400 Diastolic blood pressure 80 mm[Hg] Dr. Alejandrina Graham MD Work Phone: 2(899)071-807500 [place] [address] 11-09-2024 08:06-0400 Systolic blood pressure 122 mm[Hg] Dr. Alejandrina Graham MD Work Phone: 5(011)859-767900 [place] [address] 11-08-2024 17:55-0400 Body mass index (BMI) [Ratio] 30.8 kg/m2 Dr. Alejandrina Graham MD Work Phone: 7(097)018-384100 [place] [address] 11-08-2024 17:55-0400 Body temperature 97.4 [degF] Dr. Alejandrina Graham MD Work Phone: 1(371)228-532400 [place] [address] 11-08-2024 17:55-0400 Body weight 89.[address] Alejandrina Graham MD Work Phone: 6(874)028-876000 [place] [address] 11-08-2024 17:55-0400 Diastolic blood pressure 80 mm[Hg] Dr. Alejandrina Graham MD Work Phone: 3(246)470-853600 [place] [address] 11-08-2024 17:55-0400 Heart rate 52 /min Dr. Alejandrina Graham MD Work Phone: 0(207)527-413300 [place] [address] 11-08-2024 17:55-0400 Respiratory rate 16 /min Dr. Alejandrina Graham MD Work Phone: 2(778)787-640100 [place] [address] 11-08-2024 17:55-0400 SaO2% (BldA) [Mass fraction] 99 % Dr. Alejandrina Graham MD Work Phone: 2(211)766-004900 [place] [address] 11-08-2024 17:55-0400 Systolic blood pressure 122 mm[Hg] Dr. Alejandrina Graham MD Work Phone: 4(193)389-267900 [place] [address] 06-26-2024 08:28-0500 Body mass index (BMI) [Ratio] 29.6 kg/m2 Alejandrina Graham MD Work Phone: 3(497)928-758274 [address] [place] [address] 06-26-2024 08:28-0500 Body weight 85.73 kg Alejandrina Graham MD Work Phone: 0(992)691-429746 [place] [address] 06-26-2024 08:28-0500 Diastolic blood pressure 74 mm[Hg] Alejandrina Graham MD Work Phone: 2(630)713-253174 [address] [place] [address] 06-26-2024 08:28-0500 Heart rate 56 /min Alejandrina Graham MD Work Phone: 5(912)695-297974 [address] [place] [address] 06-26-2024 08:28-0500 Respiratory rate 16 /min Alejandrina Graham MD Work Phone: [phone] [address] [place] [address] 06-26-2024 08:28-0500 Systolic blood pressure 130 mm[Hg] Alejandrina Graham MD Work Phone: [facility] 04-05-2024 09:34-0400 Body mass index (BMI) [Ratio] 29.14 kg/m2 Laurel Jeanmarie QUALITY CONTROL ANALYST.WINDOWS ARCHITECT Work Phone: [facility] 04-05-2024 09:34-0400 Body weight 84.4 kg Laurel Jeanmarie QUALITY CONTROL ANALYST.WINDOWS ARCHITECT Work Phone: [facility] 04-05-2024 09:34-0400 Diastolic blood pressure 76 mm[Hg] Laurel Jeanmarie QUALITY CONTROL ANALYST.WINDOWS ARCHITECT Work Phone: [facility] 04-05-2024 09:34-0400 Heart rate 65 /min Laurel Jeanmarie QUALITY CONTROL ANALYST.WINDOWS ARCHITECT Work Phone: [facility] 04-05-2024 09:34-0400 SaO2% (BldA) [Mass fraction] 98 % Laurel Jeanmarie QUALITY CONTROL ANALYST.WINDOWS ARCHITECT Work Phone: [facility] 04-05-2024 09:34-0400 Systolic blood pressure 122 mm[Hg] Laurel Jeanmarie QUALITY CONTROL ANALYST.WINDOWS ARCHITECT Work Phone: [facility] 01-05-2024 08:50-0400 Body mass index (BMI) [Ratio] 28.35 kg/m2 Laurel Jeanmarie QUALITY CONTROL ANALYST.WINDOWS ARCHITECT Work Phone: [facility] 01-05-2024 08:50-0400 Body weight 82.1 kg Laurel Jeanmarie QUALITY CONTROL ANALYST.WINDOWS ARCHITECT Work Phone: [facility] 01-05-2024 08:50-0400 Diastolic blood pressure 68 mm[Hg] Laurel Jeanmarie QUALITY CONTROL ANALYST.WINDOWS ARCHITECT Work Phone: [facility] 01-05-2024 08:50-0400 Heart rate 59 /min Laurel Jeanmarie QUALITY CONTROL ANALYST.WINDOWS ARCHITECT Work Phone: [facility] 01-05-2024 08:50-0400 SaO2% (BldA) [Mass fraction] 98 % Laurel Jeanmarie QUALITY CONTROL ANALYST.WINDOWS ARCHITECT Work Phone: [facility] 01-05-2024 08:50-0400 Systolic blood pressure 100 mm[Hg] Laurel Jeanmarie QUALITY CONTROL ANALYST.WINDOWS ARCHITECT Work Phone: [facility] 09-22-2023 09:05-0500 Body weight 79.88 kg Laurel Jeanmarie QUALITY CONTROL ANALYST.WINDOWS ARCHITECT Work Phone: [facility] 09-22-2023 09:05-0500 Diastolic blood pressure 78 mm[Hg] Laurel Jeanmarie QUALITY CONTROL ANALYST.WINDOWS ARCHITECT Work Phone: [facility] 09-22-2023 09:05-0500 Heart rate 66 /min Laurel Jeanmarie QUALITY CONTROL ANALYST.WINDOWS ARCHITECT Work Phone: [facility] 09-22-2023 09:05-0500 Respiratory rate 18 /min Laurel Jeanmarie QUALITY CONTROL ANALYST.WINDOWS ARCHITECT Work Phone: [facility] 09-22-2023 09:05-0500 SaO2% (BldA) [Mass fraction] 99 % Laurel Jeanmarie QUALITY CONTROL ANALYST.WINDOWS ARCHITECT Work Phone: [facility] 09-22-2023 09:05-0500 Systolic blood pressure 130 mm[Hg] Laurel Jeanmarie QUALITY CONTROL ANALYST.WINDOWS ARCHITECT Work Phone: [facility] 06-23-2023 09:19-0500 Body weight 79.38 kg Laurel Jeanmarie QUALITY CONTROL ANALYST.WINDOWS ARCHITECT Work Phone: [facility] 06-23-2023 09:19-0500 Diastolic blood pressure 82 mm[Hg] Laurel Jeanmarie QUALITY CONTROL ANALYST.WINDOWS ARCHITECT Work Phone: [facility] 06-23-2023 09:19-0500 Heart rate 59 /min Laurel Jeanmarie QUALITY CONTROL ANALYST.WINDOWS ARCHITECT Work Phone: [facility] 06-23-2023 09:19-0500 SaO2% (BldA) [Mass fraction] 99 % Laurel Jeanmarie QUALITY CONTROL ANALYST.WINDOWS ARCHITECT Work Phone: [facility] 06-23-2023 09:19-0500 Systolic blood pressure 120 mm[Hg] Laurel Jeanmarie QUALITY CONTROL ANALYST.WINDOWS ARCHITECT Work Phone: [facility] 02-15-2023 14:13-0400 Body temperature 97.7 [degF] Laurel Jeanmarie QUALITY CONTROL ANALYST.WINDOWS ARCHITECT Work Phone: [facility] 02-15-2023 14:13-0400 Body weight 78.47 kg Laurel Jeanmarie QUALITY CONTROL ANALYST.WINDOWS ARCHITECT Work Phone: [facility] 02-15-2023 14:13-0400 Diastolic blood pressure 80 mm[Hg] Laurel Jeanmarie QUALITY CONTROL ANALYST.WINDOWS ARCHITECT Work Phone: [facility] 02-15-2023 14:13-0400 Heart rate 70 /min Laurel Jeanmarie QUALITY CONTROL ANALYST.WINDOWS ARCHITECT Work Phone: [facility] 02-15-2023 14:13-0400 Respiratory rate 16 /min Laurel Jeanmarie QUALITY CONTROL ANALYST.WINDOWS ARCHITECT Work Phone: [facility] 02-15-2023 14:13-0400 Systolic blood pressure 120 mm[Hg] Laurel Jeanmarie QUALITY CONTROL ANALYST.WINDOWS ARCHITECT Work Phone: [facility] 12-15-2022 13:16-0400 Body height 170.2 cm Doris Sorto MD Work Phone: [facility] 12-15-2022 13:16-0400 Body temperature 97.3 [degF] Doris Sorto MD Work Phone: [facility] 12-15-2022 13:16-0400 Body weight 81.92 kg Doris Sorto MD Work Phone: [facility] 12-15-2022 13:16-0400 Diastolic blood pressure 72 mm[Hg] Doris Sorto MD Work Phone: [facility] 12-15-2022 13:16-0400 Heart rate 72 /min Doris Sorto MD Work Phone: [facility] 12-15-2022 13:16-0400 SaO2% (BldA) [Mass fraction] 95 % Doris Sorto MD Work Phone: [facility] 12-15-2022 13:16-0400 Systolic blood pressure 130 mm[Hg] Doris Sorto MD Work Phone: [facility] 12-15-2022 10:52-0400 Body height 170.2 cm Alejandrina Graham MD Work Phone: [facility] 12-15-2022 10:52-0400 Body temperature 97.81 [degF] Alejandrina Graham MD Work Phone: [facility] 12-15-2022 10:52-0400 Body weight 81.65 kg Alejandrina Graham MD Work Phone: [facility] 12-15-2022 10:52-0400 Diastolic blood pressure 60 mm[Hg] Alejandrina Graham MD Work Phone: [facility] 12-15-2022 10:52-0400 Heart rate 60 /min Alejandrina Graham MD Work Phone: [facility] 12-15-2022 10:52-0400 Respiratory rate 14 /min Alejandrina Graham MD Work Phone: [facility] 12-15-2022 10:52-0400 SaO2% (BldA) [Mass fraction] 99 % Alejandrina Graham MD Work Phone: [facility] 12-15-2022 10:52-0400 Systolic blood pressure 130 mm[Hg] Alejandrina Graham MD Work Phone: [facility] 07-25-2022 08:30-0500 Body temperature 98.2 [degF] Esha Praisler-Wood QUALITY CONTROL ANALYST.WINDOWS ARCHITECT Work Phone: [facility] 07-25-2022 08:30-0500 Body weight 82.1 kg Esha Praisler-Wood QUALITY CONTROL ANALYST.WINDOWS ARCHITECT Work Phone: [facility] 07-25-2022 08:30-0500 Diastolic blood pressure 70 mm[Hg] Esha Praisler-Wood QUALITY CONTROL ANALYST.WINDOWS ARCHITECT Work Phone: [facility] 07-25-2022 08:30-0500 Heart rate 76 /min Esha Praisler-Wood QUALITY CONTROL ANALYST.WINDOWS ARCHITECT Work Phone: [facility] 07-25-2022 08:30-0500 Respiratory rate 16 /min Esha Praisler-Wood QUALITY CONTROL ANALYST.WINDOWS ARCHITECT Work Phone: [facility] 07-25-2022 08:30-0500 SaO2% (BldA) [Mass fraction] 96 % Eshaangus Rollins QUALITY CONTROL ANALYST.WINDOWS ARCHITECT Work Phone: [facility] 07-25-2022 08:30-0500 Systolic blood pressure 122 mm[Hg] Esha Rollins QUALITY CONTROL ANALYST.WINDOWS ARCHITECT Work Phone: [facility] 06-09-2022 08:05-0400 Body height 170.2 cm Alejandrina Graham MD Work Phone: [facility] 06-09-2022 08:05-0400 Body temperature 99.39 [degF] Alejandrina Graham MD Work Phone: [facility] 06-09-2022 08:05-0400 Body weight 81.19 kg Alejandrina Graham MD Work Phone: [facility] 06-09-2022 08:05-0400 Diastolic blood pressure 70 mm[Hg] Alejandrina Graham MD Work Phone: [facility] 06-09-2022 08:05-0400 Heart rate 67 /min Alejandrina Graham MD Work Phone: [facility] 06-09-2022 08:05-0400 Respiratory rate 12 /min Alejandrina Graham MD Work Phone: [facility] 06-09-2022 08:05-0400 SaO2% (BldA) [Mass fraction] 99 % Alejandrina Graham MD Work Phone: [facility] 06-09-2022 08:05-0400 Systolic blood pressure 110 mm[Hg] Alejandrina Graham MD Work Phone: [facility] Encounters Encounter Date Encounter Type Care Provider Facility Start: 01-30-2025 ambulatory Gayatri Landers lity:[facility] Start: 01-17-2025 Encounter for other preprocedural examination Gayatri Weinstein [facility] Start: 01-12-2025 End: 01-12-[address] Alejandrina Graham MD Work Phone: [facility] Work Phone: Start: 01-12-2025 End: 01-12-[address] Gayatri Weinstein MD -[facility] Work Phone: Start: 12-28-2024 End: 12-28-2024 Patient encounter procedure Alma KELLY -[facility] Work Phone: Start: 12-28-2024 End: 12-28-[address] Alejandrina Graham MD Work Phone: [facility] Work Phone: Start: 12-13-2024 End: 12-13-2024 Patient encounter procedure Alma KELLY -[facility] Work Phone: Start: 12-13-2024 End: 12-13-2024 ambulatory Alma Melton Facility:[facility] Start: 11-29-2024 ambulatory Efewhunter Ramirezkayleigh Facili ty:[facility] Start: 11-29-2024 Non-patient / Non-visit Adria Huynh nd DO -[facility] Start: 11-29-2024 End: 11-29-2024 Admission to same day surgery center Adria Cisse DO -Endoscopy Work Phone: Start: 11-29-2024 End: 11-29-[address] Alejandrina Graham MD Work Phone: [facility] Work Phone: Start: 11-23-2024 End: 11-23-[address] Alejandrina Graham MD Work Phone: [facility] Work Phone: Start: 11-23-2024 End: 11-23-2024 Patient encounter procedure Sharon Whiting NP-[facility] -Laboratory, Specimen Work Phone: Start: 11-23-2024 End: 11-23-2024 Patient encounter procedure Sharon AGUSTIN -[facility] Work Phone: Start: 11-23-2024 End: 11-23-2024 ambulatory Bob James Facility:[facility] Start: 11-23-2024 End: 11-23-2024 ambulatory Sharonnoe Whiting PHARMACY RESIDENT Facility:[facility] Start: 11-13-2024 End: 11-13-[address] Alejandrina Graham MD Work Phone: [facility] Work Phone: Start: 11-13-2024 End: 11-13-2024 Patient encounter procedure Fadia AGUSTIN -Ultrasound, [facility] Work Phone: Start: 11-13-2024 End: 11-13-2024 ambulatory josealtairfransisca [facility] Facility:[facility] Start: 11-09-2024 End: 11-09-2024 Patient encounter procedure Fadia AGUSTIN -[facility] Work Phone: Start: 11-09-2024 End: 11-09-2024 ambulatory [facility] Facility:[facility] Start: 11-09-2024 End: 11-09-[address] Alejandrina Graham MD Work Phone: [facility] Work Phone: Start: 11-09-2024 End: 11-09-[address] Willie Adams MD -Laboratory Work Phone: Start: 11-08-2024 End: 11-08-[address] Willie Adams MD -[facility] Work Phone: Start: 11-08-2024 End: 11-09-[address] Start: 10-04-2024 End: 10-04-2024 Patient encounter procedure Alma KELLY -Nuclear Medicine, [facility] Work Phone: Start: 10-04-2024 End: 10-04-2024 ambulatory Alma Melton Facility:[facility] Start: 09-19-2024 End: 09-19-2024 Patient encounter procedure Alma KELLY -[facility] Work Phone: Start: 09-19-2024 End: 09-19-2024 ambulatory [facility] Facility:[facility] Start: 07-12-2024 ambulatory [facility] Facility:[facility] Start: 06-26-2024 End: 06-26-2024 ambulatory [facility] Facility:[facility] Start: 06-26-2024 End: 06-26-2024 Subsequent hospital visit by physician Paola [facility] Work Phone: Radiology Comment on above: Left hip pain [M25.5 52] Start: 06-26-2024 End: 06-26-2024 ambulatory [facility] Facility:[facility] Start: 06-26-2024 End: 06-26-2024 Office outpatient visit 25 minutes Alejandrina Graham MD Work Phone: [facility] Comment on above: Trochanteric bursiti s of right hip (Primary Dx); Anxiety and depression; Left hip pain Start: 06-25-2024 End: 06-26-2024 Refill Laurel Jeanmarie QUALITY CONTROL ANALYST.WINDOWS ARCHITECT Work Phone: [facility] Comment on above: Refill Request Start: 04-05-2024 End: 04-05-2024 Subsequent hospital visit by physician [facility] Work Phone: Radiology Comment on above: Thyroid enlargement [E04.9] Start: 04-05-2024 End: 04-05-2024 ambulatory LAUREL JEANMARIE Facility:[facility] Start: 04-05-2024 End: 04-05-2024 Patient encounter procedure Laurel Jeanmarie QUALITY CONTROL ANALYST.WINDOWS ARCHITECT Work Phone: [facility] Comment on above: Thyroid enlargement (Primary Dx); Weight gain; Anxiety and depression; Encounter for therapeutic drug monitoring Start: 01-17-2024 Refill Laurel Jeanmarie QUALITY CONTROL ANALYST.WINDOWS ARCHITECT Work Phone: [facility] Comment on above: Refill Request Start: 01-05-2024 End: 01-05-2024 ambulatory LAUREL JEANMARIE Facility:[facility] Start: 01-05-2024 End: 01-05-2024 Patient encounter procedure Laurel Murry APRN.WINDOWS ARCHITECT Work Phone: [facility] [place] Comment on above: Primary hypertension (Primary Dx); Anxiety and depression; Hyperlipidemia, unspecified hyperlipidemia type Start: 12-30-2023 Documentation procedure Mammog fco Coordinator [facility] Start: 12-30-2023 Letter encounter Mammography Coordinator [facility] Start: 12-29-2023 End: 12-29-2023 ambulatory [facility] Facility:[facility] Start: 12-29-2023 End: 12-29-2023 Subsequent hospital visit by physician Screen Mammo [facility] Comment on above: Encounter for screen ing mammogram for breast cancer [Z12.31] Start: 11-24-2023 End: 11-24-2023 ambulatory [facility] Facility:[facility] Start: 11-16-2023 ambulatory Alejandrina Juarez Work Phone: Internal [facility] Start: 11-01-2023 E-mail encounter fro m caregiver Laurel Murry APRN.WINDOWS ARCHITECT Work Phone: [facility] Start: 11-01-2023 Patient encounter procedure Laurel Murry APRN.WINDOWS ARCHITECT Work Phone: [facility] Comment on above: Up coming appointmen t Start: 09-22-2023 End: 09-22-2023 [facility] Facility:[facility] Start: 09-22-2023 End: 09-22-2023 Patient encounter procedure Laurel Murry APRN.WINDOWS ARCHITECT Work Phone: [facility] [place] Comment on above: Primary hypertension (Primary Dx); Anxiety and depression; Moderate persistent asthma without complication; Vision disturbance; Encounter for therapeutic drug monitoring Start: 06-23-2023 End: 06-23-2023 Patient encounter procedure Laurel Murry APRN.WINDOWS ARCHITECT Work Phone: [facility] Comment on above: Anxiety and depressi on (Primary Dx); Panic attacks; Moderate persistent asthma without complication; Allergy to perfume; Pain in right leg Start: 02-15-2023 End: 02-15-2023 Patient encounter procedure Laurel Murry APRN.WINDOWS ARCHITECT Work Phone: [facility] [place] Comment on above: Rash and nonspecific skin eruption (Primary Dx); Arthralgia, unspecified joint; Malaise Start: 12-15-2022 End: 12-15-2022 Patient encounter procedure Alejandrina Graham MD Work Phone: [facility] Comment on above: Hyperlipidemia, unsp ecified hyperlipidemia type (Primary Dx); Anxiety and depression; Belching; RUQ pain; Allergy to perfume; Airway compromise; Panic attacks Eructation; Abdominal bloating; RUQ pain Start: 12-14-2022 Refill Alejandrina Juarez Work Phone: [facility] [place] Comment on above: Refill Request Start: 08-26-2022 ambulatory Alejandrina Juarez Work Phone: Internal Medicine [facility] Start: 07-25-2022 End: 07-25-2022 Patient encounter procedure Esha Rollins APRN.WINDOWS ARCHITECT Work Phone: [facility] Comment on above: Bacterial sinusitis (Primary Dx) Start: 07-10-2022 End: 07-10-2022 ambulatory Alejandrina Graham MD Work Phone: [facility] Comment on above: Anxiety and depressi on (Primary Dx); Belching; Constipation, unspecified constipation type Start: 07-10-2022 End: 07-10-2022 Telemedicine consultation with patient Alejandrina Graham MD Work Phone: [facility] Start: 06-21-2022 ambulatory Alejandrina Juarez Work Phone: [facility] [place] Comment on above: Paternal aunt cancer information Start: 06-18-2022 ambulatory Alejandrina Juarez Work Phone: [facility] [place] Comment on above: Flu vaccine Start: 06-16-2022 ambulatory Alejandrina uJarez Work Phone: [facility] Comment on above: New antidepressant i ssue Antidepressant medic [facility] Start: 06-09-2022 End: 06-09-2022 Patient encounter procedure Alejandrina Graham MD Work Phone: [facility] Comment on above: Anxiety and depressi on (Primary Dx); Special screening examination for viral disease; Screening for HIV (human immunodeficiency virus); Lipid screening; Encounter for screening examination for impaired glucose regulation and diabetes mellitus; Vitamin B12 deficiency; Gastroesophageal reflux disease without esophagitis; Need for vaccination Start: 03-25-2022 End: 03-26-2022 Emergency department patient visit MANDO DARNELL [facility] Start: 06-30-2021 End: 06-30-[address] [facility] Procedures Date Procedure Procedure Detail Performing Clinician Start: 11-29-[address] Alejandrina andrews MD Work Phone: Start: 11-13-[address] Alejandrina Graham MD Work Phone: Start: 11-09-2024 Liquid based cervical cytology screening Dr. Alejandrina Graham MD Work Phone: Comment on above: NEGATIVE FOR INTRAEPITHELIAL LESION OR M ALIGNANCY. This liquid based Th inPrep(R) pap test was screened withthe use of an image guided system. Start: 10-04-2024 Radionuclide gastric emptying study Dr. Alejandrina Graham MD Work Phone: Start: 04-05-2024 soft tissue head & neck real time imge docm Laurel Murry QUALITY CONTROL ANALYST.WINDOWS ARCHITECT Work Phone: Start: 11-24-2023 Lipid 1996 panel - Serum or Plasma Laurel Jeanmarie QUALITY CONTROL ANALYST.WINDOWS ARCHITECT Work Phone: Start: 12-15-2022 Lipid 1996 panel - Serum or Plasma Laurel Jeanmarie QUALITY CONTROL ANALYST.WINDOWS ARCHITECT Work Phone: Start: 06-09-2022 PFIZER-Synetiq COVID-19 BIVALENT BOOSTER VACCINE, AGE 12+ YR Alejandrina Graham MD Work Phone: Start: 07-21-2021 Mammography Alejandrina Graham MD Work Phone: Start: 01-26-2019 Colonoscopy Alejandrina Graham MD Work Phone: H/O: tubal ligation Tubal ligati on status Dr. Alejandrina Graham MD Work Phone: Plan of Treatment Date Care Activity Detail Author Start: 01-26-2029 Colonoscopy COLONOSCOPY [facility] Start: 01-26-2029 COLORECTAL CANCER SCREENING COLORECTAL CANCER SCREENING [facility] Start: 01-26-2029 Screening for malign ant neoplasm of colon [facility] Start: 11-23-2028 Lipid panel Lipid Screening [facility] Start: 12-16-2027 Lipid 1996 panel - S diana or Plasma Lipid Screening [facility] Start: 12-16-2027 Lipid panel Lipid Screening [facility] Start: 12-16-2027 LIPID SCREEN LIPID SCREEN [facility] Start: 06-09-2027 LIPID SCREEN LIPID SCREEN [facility] Start: 04-05-2027 Diabetes Screening Diabetes Screenin g [facility] Start: 09-22-2026 Diabetes Screening Diabetes Screenin g [facility] Start: 12-15-2025 DIABETES SCREEN DIABETES SCREEN [facility] Start: 12-15-2025 Diabetes Screening Diabetes Screenin g [facility] Start: 06-26-2025 Annual PCP Team Investigations Manager jv Disease Visit Annual PCP Team Chronic Disease Visit [facility] Start: 06-09-2025 DIABETES SCREEN DIABETES SCREEN [facility] Start: 04-05-2025 Annual PCP Team Investigations Manager jv Disease Visit Annual PCP Team Chronic Disease Visit [facility] Start: 04-05-2025 BP Controlled (<130/80) BP Controlle d (<130/80) [facility] Start: 02-13-2025 MG Breast - bilatera l Screening [facility] Start: 01-04-2025 Annual PCP Team Investigations Manager jv Disease Visit Annual PCP Team Chronic Disease Visit [facility] Start: 01-04-2025 BP Controlled (<130/80) BP Controlle d (<130/80) [facility] Start: 01-02-2025 MG Breast - bilatera l Screening [facility] Start: 12-28-2024 Screening for malign ant neoplasm of breast Mammogram Screening [facility] Start: 11-29-2024 Egd transoral biopsy single/multiple EGD BIOPSY SINGLE/MULTIPLE [facility] Start: 11-29-2024 Patient discharge [facility] Start: 10-02-2024 End: 10-02-2024 Patient encounter procedure 10/02/2024 9:40 AM EST Office Visit [facility] [place] [address] [place], [place] [address] Alejandrina Graham MD [address] [place], [place] [address] 3 month follow up [facility] [place] Comment on above: 3 month follow up Start: 09-22-2024 Annual PCP Team Investigations Manager jv Disease Visit Annual PCP Team Chronic Disease Visit [facility] Start: 07-05-2024 End: 07-05-2024 Patient encounter procedure 07/05/2024 8:40 AM EST Office Visit [facility] [place] [address] [place], [place] [id number] Laurel Murry APRN.WINDOWS ARCHITECT [address] [place], [place] [id number] 6 month follow up [facility] [place] Comment on above: 6 month follow up Start: 04-16-2024 Covid-19 Vaccine ( season) Covid-19 Vaccine ( season) [facility] Start: 04-16-2024 Influenza vaccination [facility] Start: 04-05-2024 End: 07-05-2024 Thyrotropin [Units/volume] in Serum or Plasma [facility] Work Phone: Comment on above: Expected: 04/05/2024 , Expires: 07/05/2024 Start: 04-05-2024 End: 07-05-2024 Thyroxine (T4) free [Mass/volume] in Serum or Plasma [facility] Comment on above: Expected: 04/05/2024 , Expires: 07/05/2024 Start: 04-05-2024 End: 07-05-2024 Triiodothyronine (T3) Free [Mass/volume] in Serum or Plasma [facility] Comment on above: Expected: 04/05/2024 , Expires: 07/05/2024 Start: 01-31-2024 LIPID SCREEN LIPID SCREEN [facility] Start: 01-05-2024 End: 01-05-2024 Patient encounter procedure 01/05/2024 9:00 AM EDT Office Visit [facility] [place] [address] [place] [address] Laurel Murry APRN.WINDOWS ARCHITECT [address] [place], [place] [id number] Follow up/new med check [facility] [place] Comment on above: Follow up/new med ch dagoberto Start: 11-16-2023 End: 02-15-2024 Lipid 1996 panel - Serum or Plasma LIPID PANEL BASIC Lab Routine Hyperlipidemia Expected: 11/16/2023, Expires: 02/15/2024 [facility] Work Phone: Comment on above: Expected: 11/16/2023 , Expires: 02/15/2024 Start: 11-11-2023 HPV TESTING HPV TESTING [facility] Start: 11-11-2023 PAP TESTING PAP TESTING [facility] Start: 11-11-2023 Screening for malign ant neoplasm of cervix [facility] Start: 04-16-2023 Covid-19 Vaccine () Covid-19 Vaccine () [facility] Start: 04-16-2023 Influenza vaccination C [facility] Start: 12-15-2022 End: 02-14-2023 Basic metabolic 2000 panel - Serum or Plasma [facility] Work Phone: Comment on above: Expected: 12/15/2022 , Expires: 02/14/2023 Start: 12-15-2022 End: 02-14-2023 Helicobacter pylori IgG Ab [Presence] in Serum or Plasma by Immunoassay [facility] Work Phone: Comment on above: Expected: 12/15/2022 , Expires: 02/14/2023 Start: 12-15-2022 End: 02-14-2023 Lipid 1996 panel - Serum or Plasma [facility] Work Phone: Comment on above: Expected: 12/15/2022 , Expires: 02/14/2023 Start: 08-16-2022 DEPRESSION ASSESSMENT DEPRESSION ASS ESSMENT [facility] Start: 07-21-2022 Mammography [facility] Start: 07-21-2022 Screening for malign ant neoplasm of breast Mammogram Screening [facility] Start: 06-09-2022 End: 08-09-2022 Basic metabolic 2000 panel - Serum or Plasma [facility] Work Phone: Comment on above: Expected: 06/09/2022 , Expires: 08/09/2022 Start: 06-09-2022 End: 08-09-2022 CBC W Auto Differential panel - Blood [facility] Work Phone: Comment on above: Expected: 06/09/2022 , Expires: 08/09/2022 Start: 06-09-2022 End: 08-09-2022 Cobalamin (Vitamin B12) [Mass/volume] in Serum or Plasma [facility] Work Phone: Comment on above: Expected: 06/09/2022 , Expires: 08/09/2022 Start: 06-09-2022 End: 08-09-2022 Hepatitis C virus Ab [Presence] in Serum [facility] Work Phone: Comment on above: Expected: 06/09/2022 , Expires: 08/09/2022 Start: 06-09-2022 End: 08-09-2022 HIV 1+2 Ab [Presence] in Serum or Plasma by Immunoassay [facility] Work Phone: Comment on above: Expected: 06/09/2022 , Expires: 08/09/2022 Start: 06-09-2022 End: 08-09-2022 Lipid 1996 panel - Serum or Plasma [facility] Work Phone: Comment on above: Expected: 06/09/2022 , Expires: 08/09/2022 Start: 04-16-2022 Influenza vaccination INFLUENZA (#1) [facility] Start: 10-25-2021 DIABETES SCREEN DIABETES SCREEN [facility] Start: 2017 SHINGRIX VACCINE (1 of 2) TOBIAS GRIX VACCINE (1 of 2) [facility] Start: 2012 COLOGUARD (FIT-DNA) COLOGUARD (FIT-D NA) [facility] Start: [address] [facility] Start: 2012 FECAL OCCULT BLOOD FECAL OCCULT BLOO D [facility] Start: 2012 Screening for malign ant neoplasm of colon [facility] Start: 2012 SIGMOIDOSCOPY SIGMOIDOSCOPY [facility] Start: 1986 Urine microalbumin profile [facility] Start: 1985 BP Controlled (<130/80) BP Controlle d (<130/80) [facility] Start: 1985 HEPATITIS C SCREENING HEPATITIS C SC REENING [facility] Start: 1985 HIV SCREENING HIV SCREENING [facility] Start: 1985 Spirometry Spirometry [facility] Start: 1973 Pneumococcal vaccination Pneum ococcal Vaccine (1 of 2 - PCV) [facility] Start: 1967 HEPATITIS B (1 of 3 - 3-dose series) HEPATITIS B (1 of 3 - 3-dose series) [facility] CT Abdomen and Pelvi s W contrast IV [facility] End: 09-25-2023 TORSTEN SCREENING TORSTEN SCREENING Radiology Routine Encounter for screening mammogram for breast cancer 1 Occurrences starting 08/26/2022 until 09/25/2023 [facility] Work Phone: Comment on above: 1 Occurrences starti ng 08/26/2022 until 09/25/2023 MG Breast - bilatera l Screening [facility] MG Breast Screening TORSTEN SCREENIN G Radiology Routine Encounter for screening mammogram for breast cancer 12/29/2023 9:08 AM EDT [facility] Work Phone: Patient referral [facility] Work Phone: US Pelvis [facility] End: 05-05-2025 US Thyroid gland US THYROID/PARATHYROID Radiology Routine Thyroid enlargement 1 Occurrences starting 04/05/2024 until 05/05/2025 [facility] Comment on above: 1 Occurrences starti ng 04/05/2024 until 05/05/2025 End: 07-26-2025 XR HIP BILATERAL 5V PEL/AP/LAT EACH HIP XR HIP BILATERAL 5V PEL/AP/LAT EACH HIP Radiology Routine Left hip pain 1 Occurrences starting 06/26/2024 until 07/26/2025 [facility] Work Phone: Comment on above: 1 Occurrences starti ng 06/26/2024 until 07/26/2025 XR HIP BILATERAL 5V PEL/AP/LAT EACH HIP XR HIP BILATERAL 5V PEL/AP/LAT EACH HIP Radiology Routine Left hip pain 06/26/2024 10:22 AM EST [facility] Immunizations Immunization Date Immunization Notes Care Provider Fa [facility] 07-11-2024 influenza, seasonal, injectable, preservative free Dr. Alejandrina Graham MD Work Phone: [facility] 06-18-2022 influenza, seasonal, injectable Alejandrina Graham MD Work Phone: [facility] Work Phone: 06-18-2022 influenza virus vaccine, unspecified formulation Laurel Murry APRN.CNP Work Phone: [facility] 06-09-2022 COVID-19 booster vaccine, age 12+ yr, bivalent (PFIZER-BIONTECH) Alejandrina Graham MD Work Phone: [facility] Work Phone: 06-12-2021 influenza, seasonal, injectable Alejandrina Graham MD Work Phone: [facility] Work Phone: 12-11-2020 COVID-19 original vaccine, full dose, monovalent (MODERNA) Alejandrina Graham MD Work Phone: [facility] 11-14-2020 COVID-19 original vaccine, full dose, monovalent (MODERNA) Alejandrina Graham MD Work Phone: [facility] 10-31-2013 hepatitis B vaccine, adult dosage Dr. Alejandrina Graham MD Work Phone: [facility] 09-23-2011 hepatitis B vaccine, adult dosage Dr. Alejandrina Graham MD Work Phone: [facility] 08-24-2011 hepatitis B vaccine, adult dosage Dr. Alejandrina Graham MD Work Phone: [facility] Payers Date Payer Category Payer Self-pay 2024 Unknown [id number] 2023 Unknown [id number] 2022 Unknown [id number] 1965 Unknown [id number] 2.16.84 [id number] 1965 Unknown [id number] 2.16.84 [id number] Self-pay SELF PAY INSURANCE [id number] Unknown [id number] Unknown [id number] Unknown [id number] 2.16.8 [id number] Unknown [id number] 2.16.8 [id number] Unknown [id number] 2.16.8 [id number] Unknown [id number] 2.16.8 [id number] Unknown [id number] 2.16.8 [id number] Unknown [id number] 2.16.8 [id number] Unknown [id number] 2.16.8 [id number] Unknown [id number] 2.16.8 [id number] Unknown [id number] 2.16.8 [id number] Unknown [id number] 2.16.8 [id number] Unknown [id number] 2.16.8 [id number] Unknown [id number] 2.16.8 [id number] Unknown [id number] 2.16.8 [id number] Unknown [id number] 2.16.8 [id number] Unknown [id number] 2.16.8 [id number] Unknown [id number] 2.16.8 [id number] Social History Date Type Detail Facility Start: 06-09-2022 End: 11-24-2024 Tobacco smoking status NHIS Ex-smoker [facility] Work Phone: History of tobacco use Current smoker [facility] Work Phone: Start: 06-09-2022 Tobacco use and exposure Smokeless tobacco non-user [facility] Work Phone: Start: 06-09-2022 End: 04-05-2024 Alcohol intake Ex-drinker (finding) [facility] Start: 06-08-2022 End: 07-09-2022 History SDOH Alcohol Frequency 2 [facility] Start: 06-08-2022 End: 07-09-2022 History SDOH Alcohol Std Drinks 1 [facility] Start: 06-08-2022 End: 07-09-2022 History SDOH Social Connections Phone 3 [facility] Start: 06-08-2022 History SDOH Physica l Activity MPS 0 [facility] Start: 06-08-2022 End: 07-09-2022 History SDOH Stress 5 [facility] Start: 1965 Sex Assigned At Female C [facility] Start: 05-30-2022 End: 06-09-2022 Exposure to SARS-CoV-2 (event) Not sure [facility] Work Phone: Start: 07-09-2022 History SDOH Social Connections Meetings 98 [facility] Start: 07-09-2022 End: 06-23-2023 History of Social function [facility] Start: 07-09-2022 End: 06-23-2023 Social connection and isolation panel [facility] Do you belong to any clubs or organizations such as alevism groups, unions, fraternal or athletic groups, or school groups? Yes [facility] How often do you att end meetings of the clubs or organizations you belong to? Patient refused [facility] Are you now , , , , never or living with a partner? [facility] How often to you hav e a drink containing alcohol? Monthly or less [facility] How many standard drinks containing alcohol do you have on a typical day? 1 or 2 [facility] How often do you hav e 6 or more drinks on 1 occasion? Never [facility] How hard is it for y ou to pay for the very basics like food, housing, medical care, and heating Somewhat hard [facility] Do you feel stress - tense, restless, nervous, or anxious, or unable to sleep at night because your mind is troubled all the time - these days [OSQ] Only a little [facility] (I/We) worried chuck er (my/our) food would run out before (I/we) got money to buy more. Sometimes true [facility] The food that (I/we) bought just didn't last, and (I/we) didn't have money to get more. Never true [facility] At any time in the p ast 12 months, were you homeless or living in fdc [including now]? No [facility] Start: 01-26-2019 Gender identity Identifies as female gender (finding) [facility] Start: 01-26-2019 Sexual orientation Heterosexual (libia daniels) [facility] Do you feel stress - tense, restless, nervous, or anxious, or unable to sleep at night because your mind is troubled all the time - these days [OSQ] To some extent [facility] Start: 02-05-2020 None None [facility] Start: 02-05-2020 Spouse/ Significant Other Spouse/ Significant Other [facility] Start: 11-14-2024 End: 11-29-2024 Sex Female (finding) [facility] NEGATED: Highlighted row Not [facility] Medical Equipment Procedure Code Equipment Code Equipment Origin al Text Equipment Identifier Dates 1 Each once ever y month. Start: 03-01-2020 End: 06-09-2022 Comment on above: 1 Each once every mo nt. Goals Date Patient Goal Desired Activity /State Mental Status Date Assessment Result Facility 11-29-2024 Cognitive function Voice/Name [facility] Work Phone: Clinical Notes 06-09-2022 to 11-29-2024 Note Date & Type Note Facility 11-29-2024 Consult note [facility] 11-29-2024 Consult note [facility] 11-29-2024 Procedure note [facility] 11-29-2024 Procedure note [facility] 11-29-2024 History and physi chayito note [facility] 11-29-2024 Note [facility] Medical Records Department [address] [place] [address] History Physical Exam 11/29/24 0645 MR#: [id number] Acct: [id number] Name: POLINA THOMSON Rep #: [id number] : 1965 59 From: Adria Cisse DO PCP: Dr. Willie Adams MD Status:[place] [facility] Location: [place] [address] HPI - General General Date of Admission: 11/29/24 Date of Service: 11/29/24 HPI Narrative POLINA THOMSON, is a 59 F who presents Chief Complaint: bloating Details: POLINA THOMSON, is a 59 F who presents to the office today for establishment with [facility]. Pt has had GI issues for many years. Over the past couple months she has had worsening symptoms with abd distention, early satiety, n/v, heartburn and constipation. She is not eating much but is gaining weight. She is gets full very quickly after she starts eating. She is having at least one episode of emesis weekly. She is taking senna daily for constipation and has been for about one year. She does not have a bm if she does not take it. Her bm are typically small and hard. Her last EGD and colonoscopy was in 2019 with normal findings. [facility] Medical History (Updated 11/29/24 @ 06:[address] Covington Friend, ) Wears glasses Depression Anxiety Fatty liver Injury of head and neck Loss of consciousness Dietary restriction History of IBS Non-smoker Blood glucose elevated Hyperlipidemia Anxiety and depression Chronic constipation Greater trochanter fracture Palpitations with regular cardiac rhythm Vaginal delivery Horseshoe kidney Vision problems Skin cancer GERD (gastroesophageal reflux disease) Kidney stones IBS (irritable bowel syndrome) High cholesterol Hypertension Hearing problem Migraines Frequent headaches Gastrointestinal problem Emotional problems Chronic bronchitis Carpal tunnel syndrome Asthma Anemia Seasonal allergies Home Medications ???Medication ???Instructions ???Recorded ???Last Taken ???Type ibuprofen 600 mg tablet 600 mg PO Q6H PRN PRN Pain Score 0 02/05/20 Unknown Rx 1-05/25 #20 tabs mecobalamin (vitamin B12) 500 mcg mcg PO 09/08/24 11/27/24 History chewable tablet propranolol 60 mg capsule,24 60 mg PO QHS 09/08/24 11/28/24 His tory hr,extended release wovnvctc-jpo-zaszn ac 400 tab PO 11/08/24 11/27/24 History mcg-calcium carb 500 mg-vit K1 20 mcg tablet (Women's 50 Plus Multivitamin) sennosides 8.6 mg capsule (senna) 8.6 mg PO QDAY PRN constipation 0 11/08/24 Unknown History vit C 180 mg-D3 10 mcg-zinc 5.5 cap PO 11/08/24 11/27/24 History ne-kkvqsx-efrseil-calvin-herb capsule (Immune Support (vit c, d and zinc)) sumatriptan succinate 25 mg tablet See Rx Instructions PO .COMPLEX 11/29/24 Unknown History (Imitrex) PRN migraine headache venlafaxine 75 mg capsule,extended 75 mg PO QHS 11/29/24 11/28/24 H istory release 24 hr Allergy/AdvReac Type Severity Reaction Status Date / Time perfume Allergy throat Verified 11/24/24 13:31 swelling Family History Mother Anxiety Depression Heart disease Mental disorder Severe allergy Pacemaker Father High cholesterol Cancer lung/lymphoma Aunt Arthritis Cancer lymphoma Stomach cancer maternal aunt Aunt Cancer Sister Depression Mental disorder Hypertension Brother Cancer lymphoma Depression Mental disorder Grandmother Heart disease Severe allergy Cancer in stomach Grandfather Suicide Surgical History H/O lithotripsy H/O prior ablation treatment History of appendectomy History of carpal tunnel surgery Social History adopted: No household members: spouse number of children: 3 current occupational status: employed current occupation: [employer] current occupational exposures/hazards: No pets and animals: No leisure activities: clubs, art, fishing, reading and volunteer work history of recent travel: No sexually active: Yes Smoking Status: Former smoker Tobacco: How many years used: 2 alcohol intake: current alcohol intake frequency: holidays/special occasions only Alcohol type: wine substance use type: does not use diet: lactose free and low salt well-balanced diet: rarely or never caffeine: Yes Type: carbonated beverages, coffee and tea eating out: other during the past year weight has: increased > 10 lbs what type of physical activity do you participate in: walking seatbelt use: always do you feel safe at home: Yes ROS Constitutional Constitutional: Denies fatigue, fever(s), poor appetite, weight gain or weight loss Gastrointestinal Gastrointestinal: Denies belc (more content not included)... [facility] 11-29-2024 Consult note [facility] 11-14-2024 Radiology Diagnostic study note [facility] Imaging Services [address] [place], [place] [address] Pelvic w/ Transvaginal MR#: [id number] Acct: [id number] Name: POLINA THOMSON Rep #: [id number] : 1965 F 59 From: Brett Harris MD PCP: Dr. Willie Adams MD Status: R EG CLI Study:Pelvic w/ Transvaginal Date of Exam: 11/13/24 Exam# [id number] Ordering Dr: Fadia Lucio PHARMACY RESIDENT-C PROCEDURE: PELVIC W/ TRANSVAGINAL REASON FOR EXAM: PMB TECHNIQUE: Transabdominal and transvaginal pelvic ultrasound COMPARISON: Prior study dated February 05, 2020. FINDINGS: Measurements: Uterus: 9.1 cm x 5.3 cm x 2.8 cm with a volume of 72.14 mL Endometrial Thickness: 4 mm. This is slightly thickened. Right Ovary: Nonvisualized. Left Ovary: Nonvisualized. TRANSABDOMINAL: Uterus: Normal size, myometrial echotexture, and contour. Endometrium: It measures 4 mm. Slightly thickened for patient's age. Right ovary: Not visualized. Left ovary: Not visualized. Transvaginal sonography was performed to better visualize the endometrium. TRANSVAGINAL: Uterus: Unremarkable. Endometrium: Slightly thickened endometrium. Right ovary: Not visualized. Left ovary: Not visualized. Other adnexal findings: None. Cul-de-sac: No free intraperitoneal fluid identified. US/Pelvic w/ Transvaginal IMPRESSION: Mild thickening of the endometrium at 4 mm. The ovaries were not visualized. Reading Location: [place] CC: NIKOLE Lucio; Dr. Willie Adams MD ~ Tent Worker: Signed [facility] 11-09-2024 Note [facility] Pap Smear Specimen Adequacy November 09, 2024 11:59pm Comment . Satisfactory for evaluation. Endocervical and/or squamous metaplasticcells (endocervical component) are present. Comment on above: Satisfactory for nicolas luation. Endocervical and/or squamous metaplasticcells (endocervical component) are present. 11-09-2024 Note [facility] Pap Smear Specimen Adequacy November 09, 2024 11:59pm Comment . Satisfactory for evaluation. Endocervical and/or squamous metaplasticcells (endocervical component) are present. Comment on above: Satisfactory for nicolas luation. Endocervical and/or squamous metaplasticcells (endocervical component) are present. 11-09-2024 Note [facility] Pap Smear Specimen Adequacy November 09, 2024 11:59pm Comment . Satisfactory for evaluation. Endocervical and/or squamous metaplasticcells (endocervical component) are present. Comment on above: Satisfactory for nicolas luation. Endocervical and/or squamous metaplasticcells (endocervical component) are present. 11-09-2024 Note [facility] Pap Smear Specimen Adequacy November 09, 2024 11:59pm Comment . Satisfactory for evaluation. Endocervical and/or squamous metaplasticcells (endocervical component) are present. Comment on above: Satisfactory for nicolas luation. Endocervical and/or squamous metaplasticcells (endocervical component) are present. 09-19-2024 Evaluation note Diagnosis Onset Date Resolution Constipation acute September 7:09am Bloating chronic September 19, 2024 7:09am Gastroesophageal reflux disease noneactive September 19 7:09am Anxiety and depression chronic [facility] 2024 5:23pm Bloating chronic November 08 5:23pm Chronic constipation chronic [facility] 2024 5:23pm Hyperlipidemia chronic October 5:23pm Hypertension chronic November 08, 2024 5:23pm Migraines chronic November 08 5:23pm Encounter for well woman exam with routine gynecological exam acute November 09, 8:04am Post-menopausal bleeding acute November 09, 2024 8:04am [facility] Work Phone: 1(604) 153-442702-04-2025 Evaluation note* Diagnosis Onset Date Resolution Status Admit Date Constipation acute September 7:09am Bloating chronic September 19, 2024 7:09am Gastroesophageal reflux disease noneactive September 19 7:09am Anxiety and depression chronic [facility] 2024 5:23pm Bloating chronic November 08 5:23pm Chronic constipation chronic [facility] 2024 5:23pm Hyperlipidemia chronic October 5:23pm Hypertension chronic November 08, 2024 5:23pm Migraines chronic November 08 5:23pm Encounter for well woman exa m with routine gynecological exam acute November 09, 2024 8:04am Post-menopausal bleeding acute November 09, 2024 8:04am Post-menopausal bleeding acute November 23, 2024 2:50pm GERD (gastroesophageal reflu x disease) acute November 29, 2024 5:22am Bloating chronic November 29 5:22am [facility] Work Phone: 1(701) 323-691202-04-2025 Evaluation note* Diagnosis Onset Date Resolution Status Admit Date Constipation acute September 7:09am Bloating chronic September 19, 2024 7:09am Gastroesophageal reflux disease noneactive September 19 7:09am Anxiety and depression chronic [facility] 2024 5:23pm Bloating chronic November 08 5:23pm Chronic constipation chronic [facility] 2024 5:23pm Hyperlipidemia chronic October 5:23pm Hypertension chronic November 08, 2024 5:23pm Migraines chronic November 08 5:23pm Encounter for well woman mavis hankins with routine gynecological exam acute November 09, 2024 8:04am Post-menopausal bleeding acute November 09, 2024 8:04am Post-menopausal bleeding acute November 23, 2024 2:50pm GERD (gastroesophageal reflu x disease) acute November 29, 2024 5:22am Bloating chronic November 29 5:22am Constipation acute December 13, 2024 8:40am Dysphagia acute December 13 8:40am GERD (gastroesophageal reflu x disease) acute December 13, 2024 8:40am Constipation acute December 28 6:52am GERD (gastroesophageal reflu x disease) acute December 28, 2024 6 :52am Abdominal pain inactive December 28, 2024 6:52am [facility] Work Phone: 1(278) 370-502802-04-2025 Evaluation note* Diagnosis Onset Date Resolution Status Admit Date Constipation acute September 7:09am Bloating chronic September 19, 2024 7:09am Gastroesophageal reflux disease noneactive September 19 7:09am Anxiety and depression chronic [facility] 2024 5:23pm Bloating chronic November 08 5:23pm Chronic constipation chronic [facility] 2024 5:23pm Hyperlipidemia chronic October 5:23pm Hypertension chronic November 08, 2024 5:23pm Migraines chronic November 08 5:23pm Encounter for well woman mavis hankins with routine gynecological exam acute November 09, 2024 8:04am Post-menopausal bleeding acute November 09, 2024 8:04am Post-menopausal bleeding acute November 23, 2024 2:50pm GERD (gastroesophageal reflu x disease) acute November 29, 2024 5:22am Bloating chronic November 29 5:22am Constipation acute December 13, 2024 8:40am Dysphagia acute December 13 8:40am GERD (gastroesophageal reflu x disease) acute December 13, 2024 8:40am Constipation acute December 28 6:52am Eructation acute December 28, 2024 6:52am GERD (gastroesophageal reflu x disease) acute December 28, 2024 6 :52am Abdominal pain inactive December 28, 2024 6:52am Post-menopausal bleeding acute January 12, 2025 2:02pm [employer] Work Phone: [phone]) 307-9215956457-02-7022 Telephone encounter Note* Telephone Encounter - Nessa Dior LPN - 06/26/2024 2:53 PM EST Addressed at office visit 06/26/24 [facility]11-11-2024 Miscellaneous Notes* Telephone Encounter - Nessa Dior LPN - 06/26/2024 2:53 PM EST Addressed at office visit 06/26/24 [facility] History of Present illness Narrative* Toi Olivares RT(R) - 06/26/2024 9:30 AM EST Radiology Service Progress Note PATIENT NAME: Polina Thomson DATE OF SERVICE: June 26, 2024 TIME: 10:09 AM PATIENT IDENTITY VERIFICATION COMPLETED USING TWO (2) IDENTIFIERS: Name and Date of confirmedby patient verbally. FALL SCREENING: Has the patient had 2 falls in the last year or 1 fall with injury or currently using an Ambulatory Assistive Device (Walker, Cane, Wheelchair, Crutches, etc.)? No PATIENT GENDER DATA: Female. status: : No status: NO. PATIENT RELEVANT IMPLANT DATA REVIEWED: Yes PATIENT PRESENTS WITH AN IMPLANTABLE OR ATTACHED SURFACE LAY OUT TECHNICIAN: No RADIOLOGY DEPARTMENT: General X-ray: Exam(s) Completed: Pelvis X-Ray: Pelvis with Hip Bilateral PERIPHERAL IV DATA: Not applicable SIGNED BY: RT Susanna(R) June 26, 2024 10:09 AM [facility]24 NoteHNO ID: [id number] Author: TOI OLIVARES RT(Harriett) Service: ? Author Type: Histologic Technician Type: Progress Notes Filed: 06/26/2024 10:21 Note Text: Radiology Service Progress Note PATIENT NAME: Polina Thomson DATE OF SERVICE: June 26, 2024 TIME: 10:09 AM PATIENT IDENTITY VERIFICATION COMPLETED USING TWO (2) IDENTIFIERS: Name and Date of confirmed by patient verbally. FALL SCREENING: Has the patient had 2 falls in the last year or 1 fall with injury or currently using an Ambulatory Assistive Device (Walker, Cane, Wheelchair, Crutches, etc.)? No PATIENT GENDER DATA: Female. status: : No status: NO. PATIENT RELEVANT IMPLANT DATA REVIEWED: Yes PATIENT PRESENTS WITH AN IMPLANTABLE OR ATTACHED SURFACE LAY OUT TECHNICIAN: No RADIOLOGY DEPARTMENT: General X-ray: Exam(s) Completed: Pelvis X-Ray: Pelvis with Hip Bilateral PERIPHERAL IV DATA: Not applicable SIGNED BY: RT Susanna(Harriett) June 26, 2024 10:09 [facility]11-11-2024 Instructions* Patient Instructions* Alejandrina Graham MD - 06/26/2024 9:04 AM EST Look up IT band syndrome and do the exercise for it; documented in this encounterGreen Cross [facility] NoteHNO ID: [id number] Author: ALEJANDRINA GRAHAM MD Service: ? Author Type: Physician Type: Progress Notes Filed: 06/26/2024 13:57 Note Text: Reason for Visit Patient presents with: Rx Refills Hip Pain Polina Thomson is a 57 year old female who presents here today for Above Complaints. Health Maintenance HEPATITIS B(1 of 3 - 3-dose series) DTAP,TDAP,TD(1 - Tdap) SHINGRIX VACCINE(1 of 2) MAMMOGRAM DEPRESSION ASSESSMENT HPI Polina is a very pleasant 59-year-old woman with a past medical history of asthma, hyperlipidemia, anxiety and depression. Hip: Noticed it first at the trip to [place] last year, the pain is in the thigh muscle, tendon in the groin, and deep inside the side of the trochanter. she feels like her knee deanne under her. She is a little stressed. She quit her job, at [employer]. Looking for a new job because of hip issues she had to quit the old. Effexor helps her well, and would need a refill Bp is a little elevated,when she came in but repeat bp was normal. Patient has pain intermittently related to food, US showed gall bladder sludge and hepatic steatosis. Today patient notes having difficulty breathing to different perfumes. She first noticed it in 2019. She had covid at that time. Following that she has had issues with perfumes to the extent she can find it hard to breathe. Does not have an inhaler. As soon as the scent hits her she starts coughing , wheezing, and trying to get air. Did see ENT when this first started, and was tested for environmental stuff but could not be tested for clements and scents. She is getting allergy injections, weekly as she has many reactions to things around her. No problem-specific Assessment AND Plan notes found for this encounter. PAST MEDICAL HISTORY Diagnosis Date Anxiety B12 deficiency Depression History of kidney surgery Hypotension Kidney anomaly, congenital horse shoe kidney Kidney stones Shoulder impingement bilateral, right is the worst Suicide attempt by drug ingestion (HCC) 2016 Vitamin D deficiency PAST SURGICAL HISTORY Procedure Laterality Date APPENDECTOMY CALCULUS INFRARED SPECTROSCOPY CARPAL TUNNEL COLONOSCOPY FLX DX W/COLLJ SPEC WHEN PFRMD 01/26/2019 Colonoscopy ESOPHAGOGASTRODUODENOSCOPY TRANSORAL DIAGNOSTIC 01/26/2019 EGD S BALLOON,UTERINE ABLATION [id number] 1997 [place] FAMILY HISTORY Problem Relation Age of Onset other (Other) Mother pacemaker/ defib Cancer Father lung cancer other (Other) Father hperlipidemia Hypertension Sister Cancer Brother lymphoma other (Other) Brother aids other (Other) Maternal Grandmother due to allergic reaction Cancer Other thyroid cancer Cancer Maternal Aunt bladder other (Other) Son gout Depression Sister Depression Sister Depression Sister other (6P 25 deletion) Grandchild Social History Tobacco Use Smoking status: Former Smokeless tobacco: Never Vaping Use Vaping status: Never Used Substance Use Topics Alcohol use: Not Currently Drug use: Never Past medical history, appointments, medications, allergies reviewed. Pertinent Lab/Diagnostic Studies are reviewed and discussed today Current Outpatient Medications: R-Z8-ipzs-gyf-wuhny-zucs-herb (IMMUNE SUPPORT, VIT C,D,ZINC,) 180 mg-10 mcg- 5.5 mg-150 mg cap Lactobacillus rhamnosus GG (CULTURELLE ORAL) bismuth subsalicylate (DIGESTIVE RELIEF ORAL) [id number]-[id number]-COLBVYXZQ MISC propranolol ER (INDERAL LA) 60 mg 24 hr capsule venlafaxine ER (EFFEXOR XR) 37.5 mg 24 hr capsule Qyyekvwbbrmnp-Gywkiovp-Xgvnrp (MULTIVITAMIN 50 PLUS) tab albuterol HFA (PROVENTIL HFA, VENTOLIN HFA) 90 mcg/actuation inhaler calcium cit/vit D3/isoflavon 2 (MENOPAUSE RELIEF ORAL) LORazepam (ATIVAN) 0.5 mg Review of Systems CONSTITUTIONAL: No fevers, chills night sweats, unintended weight loss CARDIOVASCULAR: No chest pain, dyspnea, palpitations, orthopnea, PND, ankle edema. PULM: No dyspnea, unexplained cough. GI: No dysphagia/odynophagia, problematic reflux, constipation, diarrhea, changes in stool habits, hematochezia, melena. : No new urinary complaints, including dysuria, gross hematuria or pyuria. NEURO: No new balance problems, peripheral weakness/paresthesias or numbness of concern. Physical Exam BP 130/74 Pulse (!) 56 Resp 16 Wt 85.7 kg (189 lb) BMI 29.60 kg/m? General appearance: Well appearing, alert, in no acute distress, well nourished. Skin: Skin color, texture, turgor normal, no suspicious rashes or lesions Head: Normocephalic, no masses, lesions, tenderness or abnormalities Eyes: Anicteric sclera. Pupils are equally round and reactive to light. Extraocular movements are intact. Lungs: Lungs clear to auscultation. No wheezing, rhonchi, rales Heart: RRR without murmur, gallop, or rubs. Left hip: severe tenderness in the greater trochanteric and lesser trochanteric areas, and along the IT Ban (more content not included)...[facility]11-11-2024 History of Present illness Narrative* Alejandrina Graham MD - 06/26/2024 8:43 AM EST Reason for Visit Patient presents with: Rx Refills Hip Pain Polina Thomson is a 57 year old female who presents here today for Above Complaints. Health Maintenance HEPATITIS B(1 of 3 - 3-dose series) DTAP,TDAP,TD(1 - Tdap) SHINGRIX VACCINE(1 of 2) MAMMOGRAM DEPRESSION ASSESSMENT HPI Polina is a very pleasant 59-year-old woman with a past medical history of asthma, hyperlipidemia,anxiety and depression. Hip: Noticed it first at the trip to [place] last year, the pain is in the thigh muscle, tendon in the groin, and deep inside the side of the trochanter. she feels like her knee deanne under her. She is a little stressed. She quit her job, at [employer]. Looking for a new job because of hip issues she had to quit the old. Effexor helps her well, and would need a refill Bp is a little elevated,when she came in but repeat bp was normal. Patient has pain intermittently related to food, US showed gall bladder sludge and hepatic steatosis. Today patient notes having difficulty breathing to different perfumes. She first noticed it in 2018. She had covid at that time. Following that she has had issues with perfumes to the extent she can find it hard to breathe. Does not have an inhaler. As soon as the scent hits her she starts coughing , wheezing, and trying to get air. Did see ENT when this first started, and was tested for environmental stuff but could not be testedfor clements and scents. She is getting allergy injections, weekly as she has many reactions to things around her. No problem-specific Assessment & Plan notes found for this encounter. PAST MEDICAL HISTORY Diagnosis Date Anxiety B12 deficiency Depression History of kidney surgery Hypotension Kidney anomaly, congenital horse shoe kidney Kidney stones Shoulder impingement bilateral, right is the worst Suicide attempt by drug ingestion (HCC) 2016 Vitamin D deficiency PAST SURGICAL HISTORY Procedure Laterality Date APPENDECTOMY CALCULUS INFRARED SPECTROSCOPY CARPAL TUNNEL COLONOSCOPY FLX DX W/COLLJ SPEC WHEN PFRMD 01/26/2019 Colonoscopy ESOPHAGOGASTRODUODENOSCOPY TRANSORAL DIAGNOSTIC 01/26/2019 EGD S BALLOON,UTERINE ABLATION [id number] 1995 [place] FAMILY HISTORY Problem Relation Age of Onset other (Other) Mother pacemaker/ defib Cancer Father lung cancer other (Other) Father hperlipidemia Hypertension Sister Cancer Brother lymphoma other (Other) Brother aids other (Other) Maternal Grandmother due to allergic reaction Cancer Other thyroid cancer Cancer Maternal Aunt bladder other (Other) Son gout Depression Sister Depression Sister Depression Sister other (6P 25 deletion) Grandchild Social History Tobacco Use Smoking status: Former Smokeless tobacco: Never Vaping Use Vaping status: Never Used Substance Use Topics Alcohol use: Not Currently Drug use: Never Past medical history, appointments, medications, allergies reviewed. Pertinent Lab/Diagnostic Studies are reviewed and discussed today Current Outpatient Medications: Z-K4-dzcr-jep-uxkep-gqsh-herb (IMMUNE SUPPORT, VIT C,D,ZINC,) 180 mg-10 mcg- 5.5 mg-150 mg cap Lactobacillus rhamnosus GG (CULTURELLE ORAL) bismuth subsalicylate (DIGESTIVE RELIEF ORAL) [id number]-KWIYMRNTH-KPDNWOQQM MISC propranolol ER (INDERAL LA) 60 mg 24 hr capsule venlafaxine ER (EFFEXOR XR) 37.5 mg 24 hr capsule Mejbgijklmwqx-Qfentbht-Taydpx (MULTIVITAMIN 50 PLUS) tab albuterol HFA (PROVENTIL HFA, VENTOLIN HFA) 90 mcg/actuation inhaler calcium cit/vit D3/isoflavon 2 (MENOPAUSE RELIEF ORAL) LORazepam (ATIVAN) 0.5 mg Review of Systems CONSTITUTIONAL: No fevers, chills night sweats, unintended weight loss CARDIOVASCULAR: No chest pain, dyspnea, palpitations, orthopnea, PND, ankle edema. PULM: No dyspnea, unexplained cough. GI: No dysphagia/odynophagia, problematic reflux, constipation, diarrhea, changes in stool habits, hematochezia, melena. : No new urinary complaints, including dysuria, gross hematuria or pyuria. NEURO: No new balance problems, peripheral weakness/paresthesias or numbness of concern. Physical Exam BP 130/74 Pulse (!) 56 Resp 16 Wt 85.7 kg (189 lb) BMI 29.60 kg/m General appearance: Well appearing, alert, in no acute distress, well nourished. Skin: Skin color, texture, turgor normal, no suspicious rashes or lesions Head: Normocephalic, no masses, lesions, tenderness or abnormalities Eyes: Anicteric sclera. Pupils are equally round and reactive to light. Extraocular movements are intact. Lungs: Lungs clear to auscultation. No wheezing, rhonchi, rales Heart: RRR without murmur, gallop, or rubs. Left hip: severe tenderness in the greater trochanteric and lesser trochanteric areas, and along the IT Band mostly in the later tibial insertion Procedure note: Trochanteric bursitis. The risk, benefits and alternatives of injection and no injection therapy were discussed. The patient consented for an injection. Time out was conducted. The injection site was prepped with a Chlorhexadine swab. The right trochanteric bursa at the tenderest Point was injected with a 22 gauge needlewith 1 cc (40 mg) kenalog, 1 cc of lidocaine . The injection site was then dressed with a bandaid. The patient tolerated the injection well. The patient was instructed to call the office if any adverse local effects occurred or any if any questions or concerns arise. ASSESSMENT/PLAN: 1. Trochanteric bursitis of right hip - ICD9: 726.5, ICD10: M70.61 (primary diagnosis) Also given her IT band exercises. - TRIAMCINOLONE ACETONIDE 40 MG/ML SUSPENSION FOR INJECTION 2. Anxiety and depression - ICD9: 300.00, 311, ICD10: F41.9, F32.A Cont the venlafaxine. - VENLAFAXINE ER 37.5 MG CAPSULE,EXTENDED RELEASE 24 HR 3. Left hip pain - ICD9: 719.45, ICD10: M25.552 - XR HIP BILATERAL 5V PEL/AP/LAT EACH HIP Alejandrina Graham MD documented [facility] NoteHNO ID: [id number] Author: LAUREL MURRY APRN.WINDOWS ARCHITECT Service: ? Author Type: Nurse Practitioner Type: Progress Notes Filed: 04/05/2024 10:11 Note Text: SUBJECTIVE Polina Thomson is a 59 year old female here today for a check up on her medical problems. Chief Complaint Patient presents with: weight issues: weight gain, questions if has a thyroid nodule complains of fatigue off and on HPI Polina Thomson is a 59 year old female. She is an established patient of Alejandrina Graham MD. Here today for concerns of noticing gradual weight gain. Wondering if her thyroid is off. Family history of thyroid cancer. Noticing fatigue, weight gain despite being active. Some increased stress with work and trying to sell house. Sleep is not great, tossing and turning. Diet is pretty healthy but only 1 meal a day and might eat late at night. Trying to drink water. Her medications were reviewed today and her list is now up to date. Medications Current Outpatient Medications Medication Sig K-N1-napm-ovh-ndchj-grix-herb (IMMUNE SUPPORT, VIT C,D,ZINC,) 180 mg-10 mcg- 5.5 mg-150 mg cap Take 2 capsules by mouth once daily. calcium cit/vit D3/isoflavon 2 (MENOPAUSE RELIEF ORAL) Take 2 capsules by mouth once daily. Lactobacillus rhamnosus GG (CULTURELLE ORAL) Take 1 capsule by mouth once daily. bismuth subsalicylate (DIGESTIVE RELIEF ORAL) Take 1 tablet by mouth two times a day. YGWGC-LOVKCTCVM-NAWISUSSV MISC 1 tablet as needed. propranolol ER (INDERAL LA) 60 mg 24 hr capsule take 1 capsule by mouth every day venlafaxine ER (EFFEXOR XR) 37.5 mg 24 hr capsule Take 1 capsule by mouth once daily. Tdykgncrfxuol-Pamqyugq-Qywynu (MULTIVITAMIN 50 PLUS) tab Take 1 tablet by mouth once daily. albuterol HFA (PROVENTIL HFA, VENTOLIN HFA) 90 mcg/actuation inhaler Inhale 2 Puffs as instructed every 4 hours as needed for wheezing/shortness of breath. LORazepam (ATIVAN) 0.5 mg Take 0.5 mg by mouth. (Patient not taking: Reported on 01/05/2024) No current facility-administered medications for this visit. ALLERGIES Allergen Reactions Perfumes Shortness of Breath coughing Seasonal Allergies Other: See Comments Sneezing, runny nose ACTIVE PROBLEM LIST Anxiety and Depression - 09/22/2023 Moderate Persistent Asthma Without Complication - 09/22/2023 Hyperlipidemia - 12/15/2022 Social History Tobacco Use Smoking status: Former Smokeless tobacco: Never Vaping Use Vaping status: Never Used Substance Use Topics Alcohol use: Not Currently Drug use: Never Review of Systems Constitutional: Positive for fatigue. Respiratory: Negative. Cardiovascular: Negative. OBJECTIVE BP 122/76 Pulse 65 Wt 186 lb 1.1 oz (84.4kg) SpO2 98% Physical Exam Vitals and nursing note reviewed. Constitutional: General: She is awake. She is not in acute distress. Appearance: Normal appearance. She is well-developed and well-groomed. She is not ill-appearing, toxic-appearing or diaphoretic. HENT: Head: Normocephalic. Right Ear: External ear normal. Left Ear: External ear normal. Nose: Nose normal. Eyes: General: Vision grossly intact. Conjunctiva/sclera: Conjunctivae normal. Pupils: Pupils are equal, round, and reactive to light. Neck: Thyroid: Thyromegaly present. No thyroid mass or thyroid tenderness. Vascular: No JVD. Trachea: Trachea normal. Pulmonary: Effort: Pulmonary effort is normal. No accessory muscle usage, prolonged expiration or respiratory distress. Musculoskeletal: Cervical back: Neck supple. Skin: General: Skin is warm and dry. Capillary Refill: Capillary refill takes less than 2 seconds. Neurological: General: No focal deficit present. Mental Status: She is alert and oriented to person, place, and time. Mental status is at baseline. Psychiatric: Attention and Perception: Attention and perception normal. Mood and Affect: Mood and affect normal. Speech: Speech normal. Behavior: Behavior normal. Behavior is cooperative. Thought Content: Thought content normal. Cognition and Memory: Cognition and memory normal. Judgment: Judgment normal. ASSESSMENT/PLAN: 1. Thyroid enlargement - ICD9: 240.9, ICD10: E04.9 (primary diagnosis) Some notable enlargement on patient right. Check labs and ultrasound. - THYROID STIMULATING HORMONE - T3, FREE - T4 FREE/FREE THYROXINE - US THYROID/PARATHYROID - US THYROID/PARATHYROID 2. Weight gain - ICD9: 783.1, ICD10: R63.5 This could be thyroid related, we also discussed it might be stress related. If thyroid testing normal then we will work on other causes such as stress management, diet and exercise. 3. Anxiety and depression - ICD9: 300.00, 311, ICD10: F41.9, F32.A See #2, discussed we could increase Effexor or try adding Wellbutrin. 4. Encounter for therapeutic drug monitoring - ICD9: V58.83, ICD10: Z51.81 - COMPLETE BLOOD COUNT AND DIFFERENTIAL - COMPREHENSIVE METABOLIC PANEL Portions of thi (more content not included)...[facility] 04-05-2024 History of Present illness Narrative* Laurel Murry APRN.WINDOWS ARCHITECT - 04/05/2024 9:36 AM EDT SUBJECTIVE Polina Thomson is a 59 year old female here today for a check up on her medical problems. Chief Complaint Patient presents with: weight issues: weight gain, questions if has a thyroid nodule complains of fatigue off and on HPI Polina Thomson is a 59 year old female. She is an established patient of Alejandrina Graham MD. Heretoday for concerns of noticing gradual weight gain. Wondering if her thyroid is off. Family historyof thyroid cancer. Noticing fatigue, weight gain despite being active. Some increased stress with work and trying to sell house. Sleep is not great, tossing and turning. Diet is pretty healthy but only 1 meal a day and might eat late at night. Trying to drink water. Her medications were reviewed today and her list is now up to date. Medications Current Outpatient Medications Medication Sig F-A1-ecmg-tkk-detfa-phoz-herb (IMMUNE SUPPORT, VIT C,D,ZINC,) 180 mg-10 mcg- 5.5 mg-150 mg cap Take2 capsules by mouth once daily. calcium cit/vit D3/isoflavon 2 (MENOPAUSE RELIEF ORAL) Take 2 capsules by mouth once daily. Lactobacillus rhamnosus GG (CULTURELLE ORAL) Take 1 capsule by mouth once daily. bismuth subsalicylate (DIGESTIVE RELIEF ORAL) Take 1 tablet by mouth two times a day. DCMWS-BVPHVEHPE-ZOXFLOJNW MISC 1 tablet as needed. propranolol ER (INDERAL LA) 60 mg 24 hr capsule take 1 capsule by mouth every day venlafaxine ER (EFFEXOR XR) 37.5 mg 24 hr capsule Take 1 capsule by mouth once daily. Zvnwyxqgknzhl-Ukdmwjtc-Lzviip (MULTIVITAMIN 50 PLUS) tab Take 1 tablet by mouth once daily. albuterol HFA (PROVENTIL HFA, VENTOLIN HFA) 90 mcg/actuation inhaler Inhale 2 Puffs as instructed every 4 hours as needed for wheezing/shortness of breath. LORazepam (ATIVAN) 0.5 mg Take 0.5 mg by mouth. (Patient not taking: Reported on 01/05/2024) No current facility-administered medications for this visit. ALLERGIES Allergen Reactions Perfumes Shortness of Breath coughing Seasonal Allergies Other: See Comments Sneezing, runny nose ACTIVE PROBLEM LIST Anxiety and Depression - 09/22/2023 Moderate Persistent Asthma Without Complication - 09/22/2023 Hyperlipidemia - 12/15/2022 Social History Tobacco Use Smoking status: Former Smokeless tobacco: Never Vaping Use Vaping status: Never Used Substance Use Topics Alcohol use: Not Currently Drug use: Never Review of Systems Constitutional: Positive for fatigue. Respiratory: Negative. Cardiovascular: Negative. OBJECTIVE BP 122/76 Pulse 65 Wt 186 lb 1.1 oz (84.4kg) SpO2 98% Physical Exam Vitals and nursing note reviewed. Constitutional: General: She is awake. She is not in acute distress. Appearance: Normal appearance. She is well-developed and well-groomed. She is not ill-appearing, toxic-appearing or diaphoretic. HENT: Head: Normocephalic. Right Ear: External ear normal. Left Ear: External ear normal. Nose: Nose normal. Eyes: General: Vision grossly intact. Conjunctiva/sclera: Conjunctivae normal. Pupils: Pupils are equal, round, and reactive to light. Neck: Thyroid: Thyromegaly present. No thyroid mass or thyroid tenderness. Vascular: No JVD. Trachea: Trachea normal. Pulmonary: Effort: Pulmonary effort is normal. No accessory muscle usage, prolonged expiration or respiratory distress. Musculoskeletal: Cervical back: Neck supple. Skin: General: Skin is warm and dry. Capillary Refill: Capillary refill takes less than 2 seconds. Neurological: General: No focal deficit present. Mental Status: She is alert and oriented to person, place, and time. Mental status is at baseline. Psychiatric: Attention and Perception: Attention and perception normal. Mood and Affect: Mood and affect normal. Speech: Speech normal. Behavior: Behavior normal. Behavior is cooperative. Thought Content: Thought content normal. Cognition and Memory: Cognition and memory normal. Judgment: Judgment normal. ASSESSMENT/PLAN: 1. Thyroid enlargement - ICD9: 240.9, ICD10: E04.9 (primary diagnosis) Some notable enlargement on patient right. Check labs and ultrasound. - THYROID STIMULATING HORMONE - T3, FREE - T4 FREE/FREE THYROXINE - US THYROID/PARATHYROID - US THYROID/PARATHYROID 2. Weight gain - ICD9: 783.1, ICD10: R63.5 This could be thyroid related, we also discussed it might be stress related. If thyroid testing normal then we will work on other causes such as stress management, diet and exercise. 3. Anxiety and depression - ICD9: 300.00, 311, ICD10: F41.9, F32.A See #2, discussed we could increase Effexor or try adding Wellbutrin. 4. Encounter for therapeutic drug monitoring - ICD9: V58.83, ICD10: Z51.81 - COMPLETE BLOOD COUNT AND DIFFERENTIAL - COMPREHENSIVE METABOLIC PANEL Portions of this note have been entered by ancillary staff. I have reviewed and when necessary edited, so that they are an adequate record of my encounter with this patient Please note that parts of this document were created using voice recognition software and therefore may contain grammatical errors. Patient verbalizes understanding of instructions from today's visit and in agreement with treatmentplan. Questions answered. Agrees to call the office if questions, concerns of issues with acute symptoms not improving or if they worsen. See diagnoses and orders for additional plan(s). Allergies and medications were reviewed, list was updated, and refills given if needed. Past medical, surgical, social, and family history reviewed and updated as appropriate. Encouraged proper diet & exercise as well as compliance with taking medications. Age- appropriate health preventative measures were discussed. Return if symptoms worsen or fail to improve, for Keep next scheduled appointment.. Laurel Murry APRN-LALI documented in [facility]06-[facility] Telephone encounter Note * Telephone Encounter - Rafaela Hdz LPN - 01/17/2024 3:41 PM EDT Patient has been identified by name and date of : Yes Patient phones for refill(s): Requested Prescriptions Pending Prescriptions Disp Refills propranolol ER (INDERAL LA) 60 mg 24 hr capsule [Pharmacy Med Name: Propranolol HCl ER Oral CapsuleExtended Release 24 Hour 60 MG] 30 capsule 0 Sig: take 1 capsule by mouth every day Date of last office visit in primary care: 01/05/2024 Date of next office visit in primary care: 07/05/2024 Please advise. Thank you. Rafaela Hdz LPN. [facility]06-03-2024 Miscellaneous Notes* Telephone Encounter - Rafaela Hdz LPN - 01/17/2024 3:41 PM EDT Patient has been identified by name and date of : Yes Patient phones for refill(s): Requested Prescriptions Pending Prescriptions Disp Refills propranolol ER (INDERAL LA) 60 mg 24 hr capsule [Pharmacy Med Name: Propranolol HCl ER Oral CapsuleExtended Release 24 Hour 60 MG] 30 capsule 0 Sig: take 1 capsule by mouth every day Date of last office visit in primary care: 01/05/2024 Date of next office visit in primary care: 07/05/2024 Please advise. Thank you. Rafaela Hdz LPN. documented in this encounterGreen [facility]05-22-2024 NoteHNO ID: [id number] Author: LAUREL MURRY APRN.WINDOWS ARCHITECT Service: ? Author Type: Nurse Practitioner Type: Progress Notes Filed: 01/05/2024 10:45 Note Text: SUBJECTIVE Polina Thomson is a 58 year old female here today for a check up on her medical problems. Chief Complaint Patient presents with: Recheck: new medication Results: discuss most recent lab results HPI Polina Thomson is a 58 year old female. She is an established patient of Alejandrina Graham MD. Here today for follow up. Last visit we started propranolol to help anxiety and blood pressure and reduced her Effexor dose. Overall she is feeling pretty well. Mood is stable. The 10-year ASCVD risk score (John LEHMAN, et al., 2019) is: 1.1% Values used to calculate the score: Age: 58 years Sex: Female Is Non- : No Diabetic: No Tobacco smoker: No Systolic Blood Pressure: 100 mmHg Is BP treated: No HDL Cholesterol: 66 mg/dL Total Cholesterol: 199 mg/dL Her medications were reviewed today and her list is now up to date. Medications Current Outpatient Medications Medication Sig venlafaxine ER (EFFEXOR XR) 37.5 mg 24 hr capsule Take 1 capsule by mouth once daily. propranolol ER (INDERAL LA) 60 mg 24 hr capsule Take 1 capsule by mouth once daily. Bmhvhssuporwq-Koviuwua-Yhkrdo (MULTIVITAMIN 50 PLUS) tab Take 1 tablet by mouth once daily. albuterol HFA (PROVENTIL HFA, VENTOLIN HFA) 90 mcg/actuation inhaler Inhale 2 Puffs as instructed every 4 hours as needed for wheezing/shortness of breath. LORazepam (ATIVAN) 0.5 mg Take 0.5 mg by mouth. (Patient not taking: Reported on 01/05/2024) No current facility-administered medications for this visit. ALLERGIES Allergen Reactions Perfumes Shortness of Breath coughing Seasonal Allergies Other: See Comments Sneezing, runny nose ACTIVE PROBLEM LIST Anxiety and Depression - 09/22/2023 Moderate Persistent Asthma Without Complication - 09/22/2023 Hyperlipidemia - 12/15/2022 Social History Tobacco Use Smoking status: Former Smokeless tobacco: Never Vaping Use Vaping Use: Never used Substance Use Topics Alcohol use: Not Currently Drug use: Never Review of Systems Respiratory: Negative. Cardiovascular: Negative. OBJECTIVE BP 100/68 Pulse 59 Wt 181 lb (82.1kg) SpO2 98% Physical Exam Vitals and nursing note reviewed. Constitutional: General: She is awake. She is not in acute distress. Appearance: Normal appearance. She is well-developed and well-groomed. She is not ill-appearing, toxic-appearing or diaphoretic. HENT: Head: Normocephalic. Right Ear: External ear normal. Left Ear: External ear normal. Nose: Nose normal. Eyes: General: Vision grossly intact. Conjunctiva/sclera: Conjunctivae normal. Pupils: Pupils are equal, round, and reactive to light. Neck: Vascular: No JVD. Trachea: Trachea normal. Cardiovascular: Rate and Rhythm: Normal rate and regular rhythm. Pulses: Normal pulses. Heart sounds: Normal heart sounds. No murmur heard. Pulmonary: Effort: Pulmonary effort is normal. No accessory muscle usage, prolonged expiration or respiratory distress. Breath sounds: Normal breath sounds. Musculoskeletal: Cervical back: Neck supple. Skin: General: Skin is warm and dry. Capillary Refill: Capillary refill takes less than 2 seconds. Neurological: General: No focal deficit present. Mental Status: She is alert and oriented to person, place, and time. Mental status is at baseline. Psychiatric: Attention and Perception: Attention and perception normal. Mood and Affect: Mood and affect normal. Speech: Speech normal. Behavior: Behavior normal. Behavior is cooperative. Thought Content: Thought content normal. Cognition and Memory: Cognition and memory normal. Judgment: Judgment normal. ASSESSMENT/PLAN: 1. Primary hypertension - ICD9: 401.9, ICD10: I10 (primary diagnosis) - Controlled - Continue current medications - Recommend home blood pressure monitoring, to bring results to next visit - Encouraged sodium restriction, DASH or Mediterranean diet - Recommend regular aerobic exercise 2. Anxiety and depression - ICD9: 300.00, 311, ICD10: F41.9, F32.A Stable. 3. Hyperlipidemia, unspecified hyperlipidemia type - ICD9: 272.4, ICD10: E78.5 - Controlled - Counseled on healthy diet and regular exercise Portions of this note have been entered by ancillary staff. I have reviewed and when necessary edited, so that they are an adequate record of my encounter with this patient Please note that parts of this document were created using voice recognition software and therefore may contain grammatical errors. Patient verbalizes understanding of instructions from today's visit and in agreement with treatment plan. Questions answered. Agrees to call the office if questions, concerns of issues with acute symptoms not improving or if they worsen. See diagnoses and orders for (more content not included)...[facility]05-22-2024 History of Present illness Narrative* Laurel Murry APRN.WINDOWS ARCHITECT - 01/05/2024 9:00 AM EDT SUBJECTIVE Polina Thomson is a 58 year old female here today for a check up on her medical problems. Chief Complaint Patient presents with: Recheck: new medication Results: discuss most recent lab results HPI Polina Thomson is a 58 year old female. She is an established patient of Alejandrina Graham MD. [facility] for follow up. Last visit we started propranolol to help anxiety and blood pressure and reduced her Effexor dose. Overall she is feeling pretty well. Mood is stable. The 10-year ASCVD risk score (John LEHMAN, et al., 2019) is: 1.1% Values used to calculate the score: Age: 58 years Sex: Female Is Non- : No Diabetic: No Tobacco smoker: No Systolic Blood Pressure: 100 mmHg Is BP treated: No HDL Cholesterol: 66 mg/dL Total Cholesterol: 199 mg/dL Her medications were reviewed today and her list is now up to date. Medications Current Outpatient Medications Medication Sig venlafaxine ER (EFFEXOR XR) 37.5 mg 24 hr capsule Take 1 capsule by mouth once daily. propranolol ER (INDERAL LA) 60 mg 24 hr capsule Take 1 capsule by mouth once daily. Grnypbsvyedxh-Tcqtfwrz-Vhyctb (MULTIVITAMIN 50 PLUS) tab Take 1 tablet by mouth once daily. albuterol HFA (PROVENTIL HFA, VENTOLIN HFA) 90 mcg/actuation inhaler Inhale 2 Puffs as instructed every 4 hours as needed for wheezing/shortness of breath. LORazepam (ATIVAN) 0.5 mg Take 0.5 mg by mouth. (Patient not taking: Reported on 01/05/2024) No current facility-administered medications for this visit. ALLERGIES Allergen Reactions Perfumes Shortness of Breath coughing Seasonal Allergies Other: See Comments Sneezing, runny nose ACTIVE PROBLEM LIST Anxiety and Depression - 09/22/2023 Moderate Persistent Asthma Without Complication - 09/22/2023 Hyperlipidemia - 12/15/2022 Social History Tobacco Use Smoking status: Former Smokeless tobacco: Never Vaping Use Vaping Use: Never used Substance Use Topics Alcohol use: Not Currently Drug use: Never Review of Systems Respiratory: Negative. Cardiovascular: Negative. OBJECTIVE BP 100/68 Pulse 59 Wt 181 lb (82.1kg) SpO2 98% Physical Exam Vitals and nursing note reviewed. Constitutional: General: She is awake. She is not in acute distress. Appearance: Normal appearance. She is well-developed and well-groomed. She is not ill-appearing, toxic-appearing or diaphoretic. HENT: Head: Normocephalic. Right Ear: External ear normal. Left Ear: External ear normal. Nose: Nose normal. Eyes: General: Vision grossly intact. Conjunctiva/sclera: Conjunctivae normal. Pupils: Pupils are equal, round, and reactive to light. Neck: Vascular: No JVD. Trachea: Trachea normal. Cardiovascular: Rate and Rhythm: Normal rate and regular rhythm. Pulses: Normal pulses. Heart sounds: Normal heart sounds. No murmur heard. Pulmonary: Effort: Pulmonary effort is normal. No accessory muscle usage, prolonged expiration or respiratory distress. Breath sounds: Normal breath sounds. Musculoskeletal: Cervical back: Neck supple. Skin: General: Skin is warm and dry. Capillary Refill: Capillary refill takes less than 2 seconds. Neurological: General: No focal deficit present. Mental Status: She is alert and oriented to person, place, and time. Mental status is at baseline. Psychiatric: Attention and Perception: Attention and perception normal. Mood and Affect: Mood and affect normal. Speech: Speech normal. Behavior: Behavior normal. Behavior is cooperative. Thought Content: Thought content normal. Cognition and Memory: Cognition and memory normal. Judgment: Judgment normal. ASSESSMENT/PLAN: 1. Primary hypertension - ICD9: 401.9, ICD10: I10 (primary diagnosis) - Controlled - Continue current medications - Recommend home blood pressure monitoring, to bring results to next visit - Encouraged sodium restriction, DASH or Mediterranean diet - Recommend regular aerobic exercise 2. Anxiety and depression - ICD9: 300.00, 311, ICD10: F41.9, F32.A Stable. 3. Hyperlipidemia, unspecified hyperlipidemia type - ICD9: 272.4, ICD10: E78.5 - Controlled - Counseled on healthy diet and regular exercise Portions of this note have been entered by ancillary staff. I have reviewed and when necessary edited, so that they are an adequate record of my encounter with this patient Please note that parts of this document were created using voice recognition software and therefore may contain grammatical errors. Patient verbalizes understanding of instructions from today's visit and in agreement with treatmentplan. Questions answered. Agrees to call the office if questions, concerns of issues with acute symptoms not improving or if they worsen. See diagnoses and orders for additional plan(s). Allergies and medications were reviewed, list was updated, and refills given if needed. Past medical, surgical, social, and family history reviewed and updated as appropriate. Encouraged proper diet & exercise as well as compliance with taking medications. Age- appropriate health preventative measures were discussed. Return in about 6 months (around 07/07/2024) for Follow up on chronic conditions and medications.. Laurel Murry APRN-WINDOWS ARCHITECT [facility]* Letter - Linsey Ivey - 12/30/2023 8:36 AM EDT December 30, 2023 PID: [id number] Polina Thomson [address] [place] [id number] Dear Ms. Thomson, We are pleased to inform you that the results of your recent breast imaging exam on 12/29/2023 are normal. Your mammogram demonstrates that you have dense breast tissue, which could hide abnormalities. Dense breast tissue, in and of itself, is a relatively common condition. Therefore, this information is not provided to cause undue concern; rather, it is to raise your awareness and promote discussion with your health care provider regarding the presence of dense breast tissue in addition to other riskfactors. Early detection of cancer is very important. We also understand recommendations regarding breast cancer screening are controversial. Please discuss with your primary care provider which strategy is best for you and whether a mammogram is right for you. Your imaging studies and report will be kept on file at [facility] as part of your permanent medical record and are available for your continuing care. Thank you for allowing us to help in meeting your health care needs. Sincerely, Dr. Head Interpreting Radiologist [facility] (Normal over 40) [facility]05-16-2024 Miscellaneous Notes* Letter - Linsey Ivey - 12/30/2023 8:36 AM EDT December 30, 2023 PID: [id number] Polina Thomson [address] [place] [id number] Dear Ms. Thomson, We are pleased to inform you that the results of your recent breast imaging exam on 12/29/2023 are normal. Your mammogram demonstrates that you have dense breast tissue, which could hide abnormalities. Dense breast tissue, in and of itself, is a relatively common condition. Therefore, this information is not provided to cause undue concern; rather, it is to raise your awareness and promote discussion with your health care provider regarding the presence of dense breast tissue in addition to other riskfactors. Early detection of cancer is very important. We also understand recommendations regarding breast cancer screening are controversial. Please discuss with your primary care provider which strategy is best for you and whether a mammogram is right for you. Your imaging studies and report will be kept on file at [facility] as part of your permanent medical record and are available for your continuing care. Thank you for allowing us to help in meeting your health care needs. Sincerely, Dr. Head Interpreting Radiologist [facility] (Normal over 40) documented in this encounterGreen [facility]05-[facility] History of Present illness Narrative* Stacy Persaud Mammo Tech - 12/29/2023 9:10 AM EDT Radiology Service Progress Note PATIENT NAME: Polina Thomson DATE OF SERVICE: December 29, 2023 TIME: 9:08 AM PATIENT IDENTITY VERIFICATION COMPLETED USING TWO (2) IDENTIFIERS: Name and Date of confirmedby patient verbally. FALL SCREENING: Has the patient had 2 falls in the last year or 1 fall with injury or currently using an Ambulatory Assistive Device (Walker, Cane, Wheelchair, Crutches, etc.)? No PATIENT GENDER DATA: Female. status: : No status: NO. PATIENT RELEVANT IMPLANT DATA REVIEWED: Not Applicable PATIENT PRESENTS WITH AN IMPLANTABLE OR ATTACHED SURFACE LAY OUT TECHNICIAN: No RADIOLOGY DEPARTMENT: Mammography PERIPHERAL IV DATA: Not applicable SIGNED BY: Miguel Waite December 29, 2023 9:08 AM documented in this encounterGreen [facility]05-15-2024 NoteHNO ID: [id number] Author: STACY PERSAUD Mammo Tech Service: ? Author Type: Histologic Technician Type: Progress Notes Filed: 12/29/2023 09:09 Note Text: Radiology Service Progress Note PATIENT NAME: Polina Thomson DATE OF SERVICE: December 29, 2023 TIME: 9:08 AM PATIENT IDENTITY VERIFICATION COMPLETED USING TWO (2) IDENTIFIERS: Name and Date of confirmed by patient verbally. FALL SCREENING: Has the patient had 2 falls in the last year or 1 fall with injury or currently using an Ambulatory Assistive Device (Walker, Cane, Wheelchair, Crutches, etc.)? No PATIENT GENDER DATA: Female. status: : No status: NO. PATIENT RELEVANT IMPLANT DATA REVIEWED: Not Applicable PATIENT PRESENTS WITH AN IMPLANTABLE OR ATTACHED SURFACE LAY OUT TECHNICIAN: No RADIOLOGY DEPARTMENT: Mammography PERIPHERAL IV DATA: Not applicable SIGNED BY: Stacy Persaud [employer] December 29, 2023 9:08 [facility]04-02-2024 NotePatient Outreach (INTMMN) POLINA THOMSON ([id number]) 1965 F Date Time Provider Department 11/16/23 [facility]LEJANDR[facility]RA[facility]ICK During your visit today, we recorded the following information about you: Allergies As of Date: 11/16/2023 Noted Allergy Reaction PERFUMES 06/23/2023 12 - Shortness of Breath Comments: coughing SEASONAL ALLERGIES 08/04/2018 14 - Other: See Comments Comments: Sneezing, runny nose Date Reviewed: 09/22/2023 Reviewed by: Laurel Murry APRN.WINDOWS ARCHITECT - Fully Assessed Visit Diagnosis:Hyperlipidemia [E78.5] Order(s):LIPID PANEL BASIC [SQLIPB] Order #: [id number] FUTURE Prescriptions as of 11/19/2023 - LORazepam (ATIVAN) 0.5 mg Take 0.5 mg by mouth. - venlafaxine ER (EFFEXOR XR) 37.5 mg 24 hr capsule Take 1 capsule by mouth once daily. - propranolol ER (INDERAL LA) 60 mg 24 hr capsule Take 1 capsule by mouth once daily. - Gsdfkkyxydhho-Eldqylrj-Eydhbm (MULTIVITAMIN 50 PLUS) tab Take 1 tablet by mouth once daily. - albuterol HFA (PROVENTIL HFA, VENTOLIN HFA) 90 mcg/actuation inhaler Inhale 2 Puffs as instructed every 4 hours as needed for wheezing/shortness of breath. Problem List As Of Date 11/16/2023 Noted Resolved Hyperlipidemia [E78.5] 12/15/2022 Anxiety and depression [F41.9, F32.A] 09/22/2023 Moderate persistent asthma without complication*09/22/2023 Encounter Status:Closed by DION MCGINNIS on 11/19/23[facility] NoteHNO ID: [id number] Author: LAUREL MURRY APRN.WINDOWS ARCHITECT Service: ? Author Type: Nurse Practitioner Type: Progress Notes Filed: 09/22/2023 12:36 Note Text: SUBJECTIVE Polina Thomson is a 58 year old female here today for a check up on her medical problems. Chief Complaint Patient presents with: Medication Follow-up HPI Polina Thomson is a 58 year old female. She is an established patient of Dr. Graham. She presents today for concerns of medication follow up. Last visit we discussed worsening anxiety and increased her Effexor and gave PRN ativan. Her asthma was also worse so Singulair was prescribed. Overall feeling anxiety is okay. Feels we can decrease the Effexor. Some flashers and floaters of the eyes. Trying to use her glasses more but feels sick at times when using these. Has had some headaches. Ibuprofen helpful. Checking blood pressure at home and this has been high. 140's/90's. Her medications were reviewed today and her list is now up to date. Medications Current Outpatient Medications Medication Sig LORazepam (ATIVAN) 0.5 mg Take 0.5 mg by mouth. Rejtewvnombiq-Bmhsszgt-Jwsltp (MULTIVITAMIN 50 PLUS) tab Take 1 tablet by mouth once daily. albuterol HFA (PROVENTIL HFA, VENTOLIN HFA) 90 mcg/actuation inhaler Inhale 2 Puffs as instructed every 4 hours as needed for wheezing/shortness of breath. venlafaxine ER (EFFEXOR XR) 37.5 mg 24 hr capsule Take 1 capsule by mouth once daily. propranolol ER (INDERAL LA) 60 mg 24 hr capsule Take 1 capsule by mouth once daily. No current facility-administered medications for this visit. ALLERGIES Allergen Reactions Perfumes Shortness of Breath coughing Seasonal Allergies Other: See Comments Sneezing, runny nose ACTIVE PROBLEM LIST Anxiety and Depression - 09/22/2023 Moderate Persistent Asthma Without Complication - 09/22/2023 Hyperlipidemia - 12/15/2022 Social History Tobacco Use Smoking status: Former Smokeless tobacco: Never Vaping Use Vaping Use: Never used Substance Use Topics Alcohol use: Not Currently Drug use: Never Review of Systems Eyes: Positive for visual disturbance. Respiratory: Negative. Cardiovascular: Negative. Neurological: Positive for headaches. OBJECTIVE BP 130/78 Pulse 66 Resp 18 Wt 176 lb 1.6 oz (79.9kg) SpO2 99% Physical Exam Vitals and nursing note reviewed. Constitutional: General: She is awake. She is not in acute distress. Appearance: Normal appearance. She is well-developed and well-groomed. She is not ill-appearing, toxic-appearing or diaphoretic. HENT: Head: Normocephalic. Right Ear: External ear normal. Left Ear: External ear normal. Nose: Nose normal. Eyes: General: Vision grossly intact. Extraocular Movements: Extraocular movements intact. Conjunctiva/sclera: Conjunctivae normal. Pupils: Pupils are equal, round, and reactive to light. Neck: Vascular: No JVD. Trachea: Trachea normal. Cardiovascular: Rate and Rhythm: Normal rate and regular rhythm. Pulses: Normal pulses. Heart sounds: Normal heart sounds. No murmur heard. Pulmonary: Effort: Pulmonary effort is normal. No accessory muscle usage, prolonged expiration or respiratory distress. Breath sounds: Normal breath sounds. Musculoskeletal: Cervical back: Neck supple. Skin: General: Skin is warm and dry. Capillary Refill: Capillary refill takes less than 2 seconds. Neurological: General: No focal deficit present. Mental Status: She is alert and oriented to person, place, and time. Mental status is at baseline. Psychiatric: Attention and Perception: Attention and perception normal. Mood and Affect: Mood and affect normal. Speech: Speech normal. Behavior: Behavior normal. Behavior is cooperative. Thought Content: Thought content normal. Cognition and Memory: Cognition and memory normal. Judgment: Judgment normal. ASSESSMENT/PLAN: 1. Primary hypertension - ICD9: 401.9, ICD10: I10 (primary diagnosis) - New diagnosis - Start propranolol to also help anxiety - Recommend home blood pressure monitoring, to bring results to next visit - Encouraged sodium restriction, DASH or Mediterranean diet - Recommend regular aerobic exercise 2. Anxiety and depression - ICD9: 300.00, 311, ICD10: F41.9, F32.A Reduce dose. - VENLAFAXINE ER 37.5 MG CAPSULE,EXTENDED RELEASE 24 HR 3. Moderate persistent asthma without complication - ICD9: 493.90, ICD10: J45.40 - Moderate persistent asthma stable and improved - Continue current medications - Avoidance of triggers recommended 4. Vision disturbance - ICD9: 368.9, ICD10: H53.9 - HGB A1C 5. Encounter for therapeutic drug monitoring - ICD9: V58.83, ICD10: Z51.81 - CBC + DIFF - COMP METABOLIC PANEL Portions of this note have been entered by ancillary staff. I have reviewed and when necessary edited, so that they are an adequate record of my encounter with this patient Please note that parts of this document we (more content not included)...[facility]02-07-2024 History of Present illness Narrative* Laurel Murry APRN.[facility] - 09/22/2023 9:09 AM EST SUBJECTIVE Polina Thomson is a 58 year old female here today for a check up on her medical problems. Chief Complaint Patient presents with: Medication Follow-up HPI Polina Thomson is a 58 year old female. She is an established patient of Dr. Graham. She presents today for concerns of medication follow up. Last visit we discussed worsening anxiety and increased her Effexor and gave PRN ativan. Her asthma was also worse so Singulair was prescribed. Overall feeling anxiety is okay. Feels we can decrease the Effexor. Some flashers and floaters of the eyes. Trying to use her glasses more but feels sick at times when using these. Has had some headaches. Ibuprofen helpful. Checking blood pressure at home and this has been high. 140's/90's. Her medications were reviewed today and her list is now up to date. Medications Current Outpatient Medications Medication Sig LORazepam (ATIVAN) 0.5 mg Take 0.5 mg by mouth. Aiqozbbvtanei-Kkfhezow-Navwjd (MULTIVITAMIN 50 PLUS) tab Take 1 tablet by mouth once daily. albuterol HFA (PROVENTIL HFA, VENTOLIN HFA) 90 mcg/actuation inhaler Inhale 2 Puffs as instructed every 4 hours as needed for wheezing/shortness of breath. venlafaxine ER (EFFEXOR XR) 37.5 mg 24 hr capsule Take 1 capsule by mouth once daily. propranolol ER (INDERAL LA) 60 mg 24 hr capsule Take 1 capsule by mouth once daily. No current facility-administered medications for this visit. ALLERGIES Allergen Reactions Perfumes Shortness of Breath coughing Seasonal Allergies Other: See Comments Sneezing, runny nose ACTIVE PROBLEM LIST Anxiety and Depression - 09/22/2023 Moderate Persistent Asthma Without Complication - 09/22/2023 Hyperlipidemia - 12/15/2022 Social History Tobacco Use Smoking status: Former Smokeless tobacco: Never Vaping Use Vaping Use: Never used Substance Use Topics Alcohol use: Not Currently Drug use: Never Review of Systems Eyes: Positive for visual disturbance. Respiratory: Negative. Cardiovascular: Negative. Neurological: Positive for headaches. OBJECTIVE BP 130/78 Pulse 66 Resp 18 Wt 176 lb 1.6 oz (79.9kg) SpO2 99% Physical Exam Vitals and nursing note reviewed. Constitutional: General: She is awake. She is not in acute distress. Appearance: Normal appearance. She is well-developed and well-groomed. She is not ill-appearing, toxic-appearing or diaphoretic. HENT: Head: Normocephalic. Right Ear: External ear normal. Left Ear: External ear normal. Nose: Nose normal. Eyes: General: Vision grossly intact. Extraocular Movements: Extraocular movements intact. Conjunctiva/sclera: Conjunctivae normal. Pupils: Pupils are equal, round, and reactive to light. Neck: Vascular: No JVD. Trachea: Trachea normal. Cardiovascular: Rate and Rhythm: Normal rate and regular rhythm. Pulses: Normal pulses. Heart sounds: Normal heart sounds. No murmur heard. Pulmonary: Effort: Pulmonary effort is normal. No accessory muscle usage, prolonged expiration or respiratory distress. Breath sounds: Normal breath sounds. Musculoskeletal: Cervical back: Neck supple. Skin: General: Skin is warm and dry. Capillary Refill: Capillary refill takes less than 2 seconds. Neurological: General: No focal deficit present. Mental Status: She is alert and oriented to person, place, and time. Mental status is at baseline. Psychiatric: Attention and Perception: Attention and perception normal. Mood and Affect: Mood and affect normal. Speech: Speech normal. Behavior: Behavior normal. Behavior is cooperative. Thought Content: Thought content normal. Cognition and Memory: Cognition and memory normal. Judgment: Judgment normal. ASSESSMENT/PLAN: 1. Primary hypertension - ICD9: 401.9, ICD10: I10 (primary diagnosis) - New diagnosis - Start propranolol to also help anxiety - Recommend home blood pressure monitoring, to bring results to next visit - Encouraged sodium restriction, DASH or Mediterranean diet - Recommend regular aerobic exercise 2. Anxiety and depression - ICD9: 300.00, 311, ICD10: F41.9, F32.A Reduce dose. - VENLAFAXINE ER 37.5 MG CAPSULE,EXTENDED RELEASE 24 HR 3. Moderate persistent asthma without complication - ICD9: 493.90, ICD10: J45.40 - Moderate persistent asthma stable and improved - Continue current medications - Avoidance of triggers recommended 4. Vision disturbance - ICD9: 368.9, ICD10: H53.9 - HGB A1C 5. Encounter for therapeutic drug monitoring - ICD9: V58.83, ICD10: Z51.81 - CBC + DIFF - COMP METABOLIC PANEL Portions of this note have been entered by ancillary staff. I have reviewed and when necessary edited, so that they are an adequate record of my encounter with this patient Please note that parts of this document were created using voice recognition software and therefore may contain grammatical errors. Patient verbalizes understanding of instructions from today's visit and in agreement with treatmentplan. Questions answered. Agrees to call the office if questions, concerns of issues with acute symptoms not improving or if they worsen. See diagnoses and orders for additional plan(s). Allergies and medications were reviewed, list was updated, and refills given if needed. Past medical, surgical, social, and family history reviewed and updated as appropriate. Encouraged proper diet & exercise as well as compliance with taking medications. Age- appropriate health preventative measures were discussed. Return in about 2 months (around 11/21/2023) for recheck on new medication.. Laurel Murry APRN-LALI documented in this encounterGreen Cross Hospital01-10-2024 NotePatient Outreach (INTMMN) POLINA THOMSON ([id number]) 1965 F Date Time Provider Department 08/25/23 ALEJANDRINA GRAHAM During your visit today, we recorded the following information about you: Allergies As of Date: 08/25/2023 Noted Allergy Reaction PERFUMES 06/23/2023 12 - Shortness of Breath Comments: coughing SEASONAL ALLERGIES 08/04/2018 14 - Other: See Comments Comments: Sneezing, runny nose Date Reviewed: 06/23/2023 Reviewed by: Laurel Murry APRN.WINDOWS ARCHITECT - Fully Assessed Visit Diagnosis:Encounter for screening mammogram for breast cancer [Z12.31] Order(s):[facility] SCREENING [[id number]] Order #: [id number] FUTURE Prescriptions as of 08/30/2023 - sennosides (SENNA-GEN ORAL) Take 2 tablets by mouth once daily. - Utxdpcmasjjyy-Luqohbit-Djrbma (MULTIVITAMIN 50 PLUS) tab Take 1 tablet by mouth once daily. - venlafaxine ER (EFFEXOR XR) 75 mg 24 hr capsule Take 1 capsule by mouth once daily. - montelukast (SINGULAIR) 10 mg tablet Take 1 tablet by mouth daily at bedtime. - albuterol HFA (PROVENTIL HFA, VENTOLIN HFA) 90 mcg/actuation inhaler Inhale 2 Puffs as instructed every 4 hours as needed for wheezing/shortness of breath. Problem List As Of Date 08/25/2023 Noted Resolved Hyperlipidemia [E78.5] 12/15/2022 Encounter Status:Closed by DION MCGINNIS on 08/30/23[facility] 06-23-2023 Instructions* Patient Instructions* Laurel Murry APRN.WINDOWS ARCHITECT - 06/23/2023 9:58 AM EST [email or web address] documented in this encounterGreen Cross Hospital11-08-2023 History of Present illness Narrative* Laurel Murry APRN.CNP - 06/23/2023 9:27 AM EST SUBJECTIVE Polina Thomson is a 58 year old female here today for a check up on her medical problems. Chief Complaint Patient presents with: F/U 6 months: Patient is being treated for depression with Venlafaxine 37.5 mg daily. Has recently had some family stressors that is causing her not to sleep as well. She was given a script for Ativan which she had tried at night and does help her sleep. Questions if can have a refill of the ativan and questions if an increase in the venlafaxine would be appropriate. Cough: seems to be related to smells such as perfumes and treats with albuterol. Using the albuterol 2-3 times a month. Albuterol doesn't seem to be effective unless she gets away from the smell andinto fresh air. Headache: off and on for about 2 weeks. States are very mild. Rectal Problem: treating with senna stool softener and rectal care HPI Polina Thomson is a 58 year old female. Here today for a 6 month follow up. Currently on Effexor for anxiety and depression. Some increase in these right now given recent events. Previously did counseling. Some stress in life right now. Questioning benefit of counseling with the circumstances. Journals. Good support from [employer] and jie. NO thoughts of self harm, suicide or harming others. Albuterol not as helpful for her breathing. Will get episodes where she feels she cannot catch her breath, triggered by strong smells like perfumes. Notes some discomfort in the right leg, hip and into back. Prior fall on this side and had pain after. This was years ago. Has tried massage, chiropractor, NSAIDs. Her medications were reviewed today and her list is now up to date. Medications Current Outpatient Medications Medication Sig sennosides (SENNA-GEN ORAL) Take 2 tablets by mouth once daily. Uokzjdpjmxjie-Agdqaqqw-Cfchwh (MULTIVITAMIN 50 PLUS) tab Take 1 tablet by mouth once daily. albuterol HFA (PROVENTIL HFA, VENTOLIN HFA) 90 mcg/actuation inhaler Inhale 2 Puffs as instructed every 4 hours as needed for wheezing/shortness of breath. venlafaxine ER (EFFEXOR XR) 75 mg 24 hr capsule Take 1 capsule by mouth once daily. LORazepam (ATIVAN) 0.5 mg Take 1 tablet by mouth three times a day as needed for up to 30 days. montelukast (SINGULAIR) 10 mg tablet Take 1 tablet by mouth daily at bedtime. No current facility-administered medications for this visit. ALLERGIES Allergen Reactions Perfumes Shortness of Breath coughing Seasonal Allergies Other: See Comments Sneezing, runny nose ACTIVE PROBLEM LIST Hyperlipidemia - 12/15/2022 Social History Tobacco Use Smoking status: Former Smokeless tobacco: Never Vaping Use Vaping Use: Never used Substance Use Topics Alcohol use: Not Currently Drug use: Never Review of Systems Respiratory: Positive for cough. Cardiovascular: Negative. Musculoskeletal: Positive for arthralgias and myalgias. OBJECTIVE BP 120/82 Pulse 59 Wt 175 lb (79.4kg) SpO2 99% Physical Exam Vitals and nursing note reviewed. Constitutional: General: She is awake. She is not in acute distress. Appearance: Normal appearance. She is well-developed and well-groomed. She is not ill-appearing, toxic-appearing or diaphoretic. HENT: Head: Normocephalic. Right Ear: External ear normal. Left Ear: External ear normal. Nose: Nose normal. Eyes: General: Vision grossly intact. Conjunctiva/sclera: Conjunctivae normal. Pupils: Pupils are equal, round, and reactive to light. Neck: Vascular: No JVD. Trachea: Trachea normal. Pulmonary: Effort: Pulmonary effort is normal. No accessory muscle usage, prolonged expiration or respiratory distress. Musculoskeletal: Cervical back: Neck supple. Skin: General: Skin is warm and dry. Capillary Refill: Capillary refill takes less than 2 seconds. Neurological: General: No focal deficit present. Mental Status: She is alert and oriented to person, place, and time. Mental status is at baseline. Psychiatric: Attention and Perception: Attention and perception normal. Mood and Affect: Mood and affect normal. Speech: Speech normal. Behavior: Behavior normal. Behavior is cooperative. Thought Content: Thought content normal. Cognition and Memory: Cognition and memory normal. Judgment: Judgment normal. ASSESSMENT/PLAN: 1. Anxiety and depression - ICD9: 300.00, 311, ICD10: F41.9, F32.A (primary diagnosis) Increase Effexor for worsening anxiety. - VENLAFAXINE ER 75 MG CAPSULE,EXTENDED RELEASE 24 HR 2. Panic attacks - ICD9: 300.01, ICD10: F41.0 Ativan PRN ok. - LORAZEPAM 0.5 MG TABLET 3. Moderate persistent asthma without complication - ICD9: 493.90, ICD10: J45.40 - Moderate persistent asthma - Start Singulair - Avoidance of triggers recommended - MONTELUKAST 10 MG TABLET 4. Allergy to perfume - ICD9: V15.09, ICD10: Z91.09 5. Pain in right leg - ICD9: 729.5, ICD10: M79.604 Discussed home strengthening, stretching, meditation for pain. Medical Decision Making: Problems: Moderate: 1+ chronic illnesses with change Risk: Moderate: Drug management Medical Decision Making Level: 4 - Moderate Portions of this note have been entered by ancillary staff. I have reviewed and when necessary edited, so that they are an adequate record of my encounter with this patient Please note that parts of this document were created using voice recognition software and therefore may contain grammatical errors. Patient verbalizes understanding of instructions from today's visit and in agreement with treatmentplan. Questions answered. Agrees to call the office if questions, concerns of issues with acute symptoms not improving or if they worsen. See diagnoses and orders for additional plan(s). Allergies and medications were reviewed, list was updated, and refills given if needed. Past medical, surgical, social, and family history reviewed and updated as appropriate. Encouraged proper diet & exercise as well as compliance with taking medications. Age- appropriate health preventative measures were discussed. Return in about 3 months (around 09/23/2023) for recheck on new medication.. Laurel Murry APRN-LALI documented in this encounterGreen Cross Hospital07-03-2023 History of Present illness Narrative* Laurel Murry APRN.CNP - 02/15/2023 2:21 PM EDT SUBJECTIVE Polina Thomson is a 57 year old female here today for acute concern. Chief Complaint Patient presents with: Headache HPI Polina Thomson is a 57 year old female established patient of Alejandrina Graham MD. Here today acutely for not feeling well. Left side of face sore, swollen, hot to touch, started a headache this am.Onset Wednesday. Jaw is sore too, redness started around cheek bone. Has noticed a spot on her leg too. Feeling that things are getting worse. Had a bite on the left leg, not sure what from. [place] No fevers that she knows of. Some chills/sweats. Appetite is not great. Not sleeping well, has joint pain. Trying to stretch, rest, ice packs, icy hot. Not sure about tick bites but has them around her home. Bucks like she was drooling earlier, maybe right side of mouth drooping. Her medications were reviewed today and her list is now up to date. Medications Current Outpatient Medications Medication Sig venlafaxine ER (EFFEXOR XR) 37.5 mg 24 hr capsule Take 1 capsule by mouth once daily. albuterol HFA (PROVENTIL HFA, VENTOLIN HFA) 90 mcg/actuation inhaler Inhale 2 Puffs as instructed every 4 hours as needed for wheezing/shortness of breath. pantoprazole DR (PROTONIX) 40 mg tablet Take 1 tablet by mouth once daily. No current facility-administered medications for this visit. ALLERGIES Allergen Reactions Seasonal Allergies Other: See Comments Sneezing, runny nose ACTIVE PROBLEM LIST Hyperlipidemia - 12/15/2022 Social History Tobacco Use Smoking status: Former Smokeless tobacco: Never Vaping Use Vaping Use: Never used Substance Use Topics Alcohol use: Not Currently Drug use: Never Review of Systems Constitutional: Positive for activity change, appetite change, chills, diaphoresis and fatigue. Negative for fever. Respiratory: Negative. Cardiovascular: Negative. Gastrointestinal: Positive for nausea. Neurological: Positive for headaches. OBJECTIVE BP 120/80 Pulse 70 Temp 97.7 Resp 16 Wt 173 lb (78.5kg) Physical Exam Vitals and nursing note reviewed. Constitutional: General: She is awake. She is not in acute distress. Appearance: She is ill-appearing. She is not toxic-appearing or diaphoretic. Comments: Overall she looks like she just does not feel well. Eyes: General: No visual field deficit. Cardiovascular: Rate and Rhythm: Normal rate. Heart sounds: Normal heart sounds. Pulmonary: Effort: Pulmonary effort is normal. Breath sounds: Normal breath sounds. Skin: Comments: Neck and left side of neck with erythema Neurological: Mental Status: She is alert and oriented to person, place, and time. Cranial Nerves: No cranial nerve deficit or dysarthria. Sensory: Sensation is intact. Motor: Motor function is intact. Coordination: Coordination is intact. Gait: Gait is intact. Comments: Questionable if she had facial droop earlier today, maybe slight lag to right side of mouth Psychiatric: Behavior: Behavior is cooperative. ASSESSMENT/PLAN: 1. Rash and nonspecific skin eruption - ICD9: 782.1, ICD10: R21 (primary diagnosis) Overall she presents as really just feeling unwell. She has a number of symptoms, possible etiologycould be Lyme's or other cause. Concerning that she feels so bad with going in to the holiday and with it being later afternoon I am concerned labs if done stat would not be back by the end of the day. In talking we both agree with her going across the street for eval in ER. Declines squad transport, will have drive her. 2. Arthralgia, unspecified joint - ICD9: 719.40, ICD10: M25.50 3. Malaise - ICD9: 780.79, ICD10: R53.81 Portions of this note have been entered by ancillary staff. I have reviewed and when necessary edited, so that they are an adequate record of my encounter with this patient Please note that parts of this document were created using voice recognition software and therefore may contain grammatical errors. Patient verbalizes understanding of instructions from today's visit and in agreement with treatmentplan. Questions answered. Agrees to call the office if questions, concerns of issues with acute symptoms not improving or if they worsen. No follow-ups on file. Laurel Murry APRN-LALI documented in this encounterGreen Cross Hospital05-02-2023 Instructions* Patient Instructions* Doris Sorto MD - 12/15/2022 1:35 PM EDT FODMAP diet FODMAP stands for fermentable oligosaccharides, disaccharides, monosaccharides and polyols, which are short-chain carbohydrates (sugars) that the small intestine absorbs poorly. Low FODMAP is a three-step elimination diet: First, you stop eating certain foods (high FODMAP foods). Next, you slowly reintroduce them to see which ones are troublesome. Once you identify the foods that cause symptoms, you can avoid or limit them while enjoying everything else worry-free. To ease IBS and SIBO symptoms, it's essential to avoid high FODMAP foods that aggravate the gut, including: Dairy-based milk, yogurt and ice cream Wheat-based products such as cereal, bread and crackers Beans and lentils Some vegetables, such as artichokes, asparagus, onions and garlic Some fruits, such as apples, cherries, pears and peaches Instead, base your meals around low FODMAP foods such as: Eggs and meat Certain cheeses such as brie, Camembert, cheddar and feta [place] milk Grains like rice, quinoa and oats Vegetables like eggplant, potatoes, tomatoes, cucumbers and zucchini Fruits such as grapes, oranges, strawberries, blueberries and pineapple Mylicon (simethicone) BEANO documented in this encounterGreen Cross Hospital05-02-2023 History of Present illness Narrative* Doris Sorto MD - 12/15/2022 1:23 PM EDT Polina Thomson 1965 REFERRING PHYSICIAN: Alejandrina Graham MD CHIEF COMPLAINT: Consult (RUQ) HPI: The patient is a 57 year old female who presents with persistent abdominal pain, mainly RUQ. However, her main concern is increased eructation, abdominal bloating and generalized abdominal pain. US of gallbladder has been normal, and I have explained that even removal of the gallbladder may not help her increased intra-luminal bowel gas. She denies fevers. She denies weight loss. She was told that if she had her gallbladder removed, all of her symptoms would resolve. PAST MEDICAL HISTORY Diagnosis Date Anxiety B12 deficiency Depression History of kidney surgery Hypotension Kidney anomaly, congenital horse shoe kidney Kidney stones Shoulder impingement bilateral, right is the worst Suicide attempt by drug ingestion ([facility]) 2016 Vitamin D deficiency PAST SURGICAL HISTORY Procedure Laterality Date APPENDECTOMY CALCULUS INFRARED SPECTROSCOPY CARPAL TUNNEL COLONOSCOPY FLX DX W/COLLJ SPEC WHEN PFRMD 01/26/2019 Colonoscopy ESOPHAGOGASTRODUODENOSCOPY TRANSORAL DIAGNOSTIC 01/26/2019 EGD S BALLOON,UTERINE ABLATION [id number] [address] [place] Current Outpatient Medications Medication Sig venlafaxine ER (EFFEXOR XR) 37.5 mg 24 hr capsule Take 1 capsule by mouth once daily. albuterol HFA (PROVENTIL HFA, VENTOLIN HFA) 90 mcg/actuation inhaler Inhale 2 Puffs as instructed every 4 hours as needed for wheezing/shortness of breath. LORazepam (ATIVAN) 0.5 mg Take 1 tablet by mouth three times daily as needed for up to [address] (PROTONIX) 40 mg tablet Take 1 tablet by mouth once daily. ALLERGIES: Seasonal Allergies PERSONAL HISTORY: Social History Tobacco Use Smoking status: Former Smokeless tobacco: Never Vaping Use Vaping Use: Never used Substance Use Topics Alcohol use: Not Currently Drug use: Never FAMILY HISTORY Problem Relation Age of Onset other (Other) Mother pacemaker/ defib Cancer Father lung cancer other (Other) Father hperlipidemia Hypertension Sister Cancer Brother lymphoma other (Other) Brother aids other (Other) Maternal Grandmother due to allergic reaction Cancer Other thyroid cancer Cancer Maternal Aunt bladder other (Other) Son gout Depression Sister Depression Sister Depression Sister other (6P 25 deletion) Grandchild The review of systems data was entered by the nurse and reviewed by ut Nursing Notes: Aniyah Cho RN 12/15/2022 1:16 PM Signed REVIEW OF SYSTEMS: General: The patient NOTES fatigue, denies weight loss, denies weight gain, denies feeling hot, anddenies feelings of cold. Eyes: The patient denies glaucoma, denies eye injury/surgery, does not wear glasses or contacts. Ear/Nose/Throat: The patient NOTES allergies, denies hayfever, denies ear infections, and denies bloody noses. Cardiovascular: The patient denies chest pain, denies heart disease, denies high blood pressure,denies cardiac stent, denies prior heart attack, denies irregular heart beat, denies high cholesterol, denies poor circulation, denies heart failure, other cardiac issues, denies claudication, denies cold feet, denies peripheral arterial stent. Respiratory: The patient denies tuberculosis, denies pneumonia, denies frequent cough, denies pulmonary embolism, denies shortness of breath, and denies coughing up blood. Gastrointestinal: The patient denies difficulty swallowing, NOTES acid reflux, denies ulcers, NOTESvomiting, denies jaundice/hepatitis, NOTES gallbladder problems, denies black or tarry stools, denies hemorrhoids, denies bleeding from rectum, denies diverticulitis, denies constipation, denies diarrhea, denies loss of stool control, and denies hernias. Kidney/Bladder: The patient denies kidney stones, denies urine infections, and denies bloody urine. Skin: The patient denies a history of skin cancer, denies bleeding/changing moles, and denies a history of skin rash. Neurologic: The patient denies a history of epilepsy/convulsions, denies headaches, denies head/spinal injuries, and denies stroke/TIA. Psychiatric: The patient denies psychiatric medications, denies depression, and denies voices, denies substance abuse. Endocrine: The patient denies thyroid disorders, denies diabetes, and denies hormonal problems. Hematologic: The patient denies a history of bruising, denies bleeding, and denies anemia, denies blood clots. Infections: The patient denies a history of measles and mumps, denies rheumatic fever, and denies sexually transmitted diseases. Musculoskeletal: The patient denies back pain/injury, denies back problems, denies sciatica, deniesknee/foot trouble, denies arthritis, or denies gout. When was patient's last Mammogram screening? 2020 Last Colonoscopy: 2018 Aniyah Cho RN PHYSICAL EXAMINATION: General: The patient is 57 year old female, well nourished, well hydrated in no acute distress. Thepatient is oriented to time, place, and person. VITALS: Blood pressure 130/72, pulse 72, temperature 36.3 C (97.3 F), height 170.2 cm (5' 7), weight 81.9 kg (180 lb 9.6 oz), SpO2 95 %. Body mass index is 28.29 kg/m . Head: Normal cephalic, atraumatic Eyes: pupils are equally round, sclera are clear/anicteric Neck is supple with no tracheal deviation Respiratory: Normal respiratory excursion and pattern. Abdominal exam: benign Extremities: no clubbing, cyanosis or edema. Neuro: non focal Psych: normal mood Assessment IMPRESSION: increased eructation, abdominal bloating PLAN: I have discussed the above with the patient. I have offered gallbladder surgery to patient but IMO, I do not believe that it will resolve patient's complaints. I have recommended dietary changes, such as an antiFODMAP diet, use of simethicone and BEANO Patient will trial above. Given the above, patient will defer surgery for now. I have counseled patient to return to clinic if any worsening signs/symptoms. Patient acknowledges above.. I have answered all questions to the patient s satisfaction and the patient has no further questions. I have confirmed and edited as necessary, the PFSH and ROS obtained by others. . Diagnoses: (R14.2) Eructation (R14.0) Abdominal bloating (R10.11) RUQ pain Return to Clinic: The patient will trial above. If any worsening signs/symptoms and/or continued symptoms, I have counseled patient to return to clinic. Consultation requested by Dr. Alejandrina Graham for an opinion regarding patient's eructation complaints, abdominal bloating. My final recommendations will be communicated back to the requesting physicianby way of shared Medical record or letter to requesting physician via US mail. Medical Decision Making: Problems: Low: Stable chronic illness Medical Decision Making Level: 2 - Straightforward Doris Sorto MD documented in this encounterGreen Cross Hospital05-02-2023 Nurse Note* Aniyah Cho RN - 12/15/2022 1:13 PM EDT REVIEW OF SYSTEMS: General: The patient NOTES fatigue, denies weight loss, denies weight gain, denies feeling hot, anddenies feelings of cold. Eyes: The patient denies glaucoma, denies eye injury/surgery, does not wear glasses or contacts. Ear/Nose/Throat: The patient NOTES allergies, denies hayfever, denies ear infections, and denies bloody noses. Cardiovascular: The patient denies chest pain, denies heart disease, denies high blood pressure,denies cardiac stent, denies prior heart attack, denies irregular heart beat, denies high cholesterol, denies poor circulation, denies heart failure, other cardiac issues, denies claudication, denies cold feet, denies peripheral arterial stent. Respiratory: The patient denies tuberculosis, denies pneumonia, denies frequent cough, denies pulmonary embolism, denies shortness of breath, and denies coughing up blood. Gastrointestinal: The patient denies difficulty swallowing, NOTES acid reflux, denies ulcers, NOTESvomiting, denies jaundice/hepatitis, NOTES gallbladder problems, denies black or tarry stools, denies hemorrhoids, denies bleeding from rectum, denies diverticulitis, denies constipation, denies diarrhea, denies loss of stool control, and denies hernias. Kidney/Bladder: The patient denies kidney stones, denies urine infections, and denies bloody urine. Skin: The patient denies a history of skin cancer, denies bleeding/changing moles, and denies a history of skin rash. Neurologic: The patient denies a history of epilepsy/convulsions, denies headaches, denies head/spinal injuries, and denies stroke/TIA. Psychiatric: The patient denies psychiatric medications, denies depression, and denies voices, denies substance abuse. Endocrine: The patient denies thyroid disorders, denies diabetes, and denies hormonal problems. Hematologic: The patient denies a history of bruising, denies bleeding, and denies anemia, denies blood clots. Infections: The patient denies a history of measles and mumps, denies rheumatic fever, and denies sexually transmitted diseases. Musculoskeletal: The patient denies back pain/injury, denies back problems, denies sciatica, deniesknee/foot trouble, denies arthritis, or denies gout. When was patient's last Mammogram screening? 2020 Last Colonoscopy: 2018 Aniyah Cho RN documented in this encounterGreen Cross Hospital05-02-2023 History of Present illness Narrative* Alejandrina Graham MD - 12/15/2022 11:11 AM EDT Reason for Visit Patient presents with: Follow Up: c/o vomiting and nausea this morning Polina Thomson is a 57 year old female who presents here today for Above Complaints. Health Maintenance HEPATITIS B(1 of 3 - 3-dose series) DTAP,TDAP,TD(1 - Tdap) SHINGRIX VACCINE(1 of 2) MAMMOGRAM DEPRESSION ASSESSMENT HPI Patient could not get her effexor refilled for 2 days and since then she has had nausea, dizziness , vomiting , headache. Does not feel ill. Just different. The vomiting is only today after she had black coffee, in prep for blood work today morning. Last visit we started her on effexor, this Is the first medication that she says has ever worked for her and she is happy . At the current dose of 37.5, it is working well Bp and heart rate are great. 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 Is going on a trip to celebrate their mother for 5 days. They are leaving on the 15, she has phobiaof heights And would like a medication for the same. She has a lot of gas and belching, asked her to take the Patient has pain intermittently related to food, US showed gall bladder sludge and hepatic steatosis. Today patient notes having difficulty breathing to different perfumes. She first noticed it in 2019. She had covid at that time. Following that she has had issues with perfumes to the extent she can find it hard to breathe. Does not have an inhaler. As soon as the scent hits her she starts coughing , wheezing, and trying to get air. Did see ENT when this first started, and was tested for environmental stuff but could not be testedfor clements and scents. She is getting allergy injections, weekly as she has many reactions to things around her. No problem-specific Assessment & Plan notes found for this encounter. PAST MEDICAL HISTORY Diagnosis Date Anxiety B12 deficiency Depression History of kidney surgery Hypotension Kidney anomaly, congenital horse shoe kidney Kidney stones Shoulder impingement bilateral, right is the worst Suicide attempt by drug ingestion (HCC) 2016 Vitamin D deficiency PAST SURGICAL HISTORY Procedure Laterality Date APPENDECTOMY CALCULUS INFRARED SPECTROSCOPY CARPAL TUNNEL COLONOSCOPY FLX DX W/COLLJ SPEC WHEN PFRMD 01/26/2019 Colonoscopy ESOPHAGOGASTRODUODENOSCOPY TRANSORAL DIAGNOSTIC 01/26/2019 EGD S BALLOON,UTERINE ABLATION [id number] 1995 [place] FAMILY HISTORY Problem Relation Age of Onset other (Other) Mother pacemaker/ defib Cancer Father lung cancer other (Other) Father hperlipidemia Hypertension Sister Cancer Brother lymphoma other (Other) Brother aids other (Other) Maternal Grandmother due to allergic reaction Cancer Other thyroid cancer Cancer Maternal Aunt bladder other (Other) Son gout Depression Sister Depression Sister Depression Sister other (6P 25 deletion) Grandchild Social History Tobacco Use Smoking status: Former Smokeless tobacco: Never Substance Use Topics Alcohol use: Not Currently Drug use: Never Past medical history, appointments, medications, allergies reviewed. Pertinent Lab/Diagnostic Studies are reviewed and discussed today Current Outpatient Medications: pantoprazole DR (PROTONIX) 40 mg tablet venlafaxine ER (EFFEXOR XR) 37.5 mg 24 hr capsule Review of Systems CONSTITUTIONAL: No fevers, chills night sweats, unintended weight loss CARDIOVASCULAR: No chest pain, dyspnea, palpitations, orthopnea, PND, ankle edema. PULM: No dyspnea, unexplained cough. GI: No dysphagia/odynophagia, problematic reflux, constipation, diarrhea, changes in stool habits, hematochezia, melena. : No new urinary complaints, including dysuria, gross hematuria or pyuria. NEURO: No new balance problems, peripheral weakness/paresthesias or numbness of concern. Physical Exam BP 130/60 (BP Site: Left Arm, BP Position: Sitting, BP Cuff Size: Large Adult) Pulse 60 Temp 36.6 C (97.8 F) Resp 14 Ht 170.2 cm (5' 7) Wt 81.6 kg (180 lb) SpO2 99% BMI 28.19 kg/m General appearance: Well appearing, alert, in no acute distress, well nourished. Skin: Skin color, texture, turgor normal, no suspicious rashes or lesions Head: Normocephalic, no masses, lesions, tenderness or abnormalities Eyes: Anicteric sclera. Pupils are equally round and reactive to light. Extraocular movements are intact. Lungs: Lungs clear to auscultation. No wheezing, rhonchi, rales Heart: RRR without murmur, gallop, or rubs. Extremities: No deformities, edema, skin discoloration, clubbing or cyanosis. Good capillary refill. ASSESSMENT/PLAN: 1. Hyperlipidemia, unspecified hyperlipidemia type - ICD9: 272.4, ICD10: E78.5 (primary diagnosis) - BASIC METABOLIC PNL - LIPID PANEL BASIC 2. Anxiety and depression - ICD9: 300.00, 311, ICD10: F41.9, F32.A - VENLAFAXINE ER 37.5 MG CAPSULE,EXTENDED RELEASE 24 HR - CBC + DIFF 3. Belching - ICD9: 787.3, ICD10: R14.2 - H PYLORI IGG AB 4. RUQ pain - ICD9: 789.01, ICD10: R10.11 - CONSULT TO GENERAL SURGERY 5. Allergy to perfume - ICD9: V15.09, ICD10: Z91.09 - CONSULT TO ALLERGY/IMMUNOLOGY - ALBUTEROL SULFATE HFA 90 MCG/ACTUATION AEROSOL INHALER 6. Airway compromise - ICD9: 519.8, ICD10: J98.8 - ALBUTEROL SULFATE HFA 90 MCG/ACTUATION AEROSOL INHALER Alejandrina Graham MD documented in this encounterGreen [facility]05-[facility]23 Miscellaneous Notes* Telephone Encounter - Lissy Donis LPN - 12/14/2022 10:24 AM EDT Patient has been identified by name and date of : No Patient phones for refill(s): Requested Prescriptions Pending Prescriptions Disp Refills venlafaxine ER (EFFEXOR XR) 37.5 mg 24 hr capsule 30 capsule 5 Sig: Take 1 capsule by mouth once daily. Date of last office visit in primary care: 07/10/22 Last 2 Encounter Wt Readings: Date: Wt: 07/25/2022 82.1 kg (181 lb) 06/09/2022 81.2 kg (179 lb) Previous labs/tests for medication: Not applicable Please advise. Thank you. Lissy Donis LPN * Telephone Encounter - Noemy Mendoza - 12/14/2022 9:18 AM EDT Pharmacy verified in Epic Patient has been identified by name and date of : Yes Patient aware RX will be sent to pharmacy. No need to notify patient. Patient phones for refill(s): Requested Prescriptions Pending Prescriptions Disp Refills venlafaxine ER (EFFEXOR XR) 37.5 mg 24 hr capsule 30 capsule 5 Sig: Take 1 capsule by mouth once daily. Date of last office visit : 06/09/2022 Date of next office visit : 12/15/2022 Last 2 Encounter Wt Readings: Date: Wt: 07/25/2022 82.1 kg (181 lb) 06/09/2022 81.2 kg (179 lb) Please advise. Noemy Nix Pss documented in this encounterGreen [facility]12-10-[facility]22 History of Present illness Narrative* Esha Rollins APRN.WINDOWS ARCHITECT - 07/25/2022 8:43 AM EST Subjective Sinus Problem Associated symptoms include congestion, coughing, headaches and a sore throat. Pertinent negatives include no chills, fever or myalgias. Polina Thomson is a 57 year old female who presents with 7days of cough, congestion, headache, sinus pressure and swelling. She has not had a fever. She has had sick contacts at work. She has taken Candida Jane Lew at home for illness. Review of Systems Constitutional: Negative for chills and fever. HENT: Positive for congestion, ear pain, sinus pain and sore throat. Respiratory: Positive for cough, sputum production and shortness of breath. Cardiovascular: Negative. Musculoskeletal: Negative for myalgias. Neurological: Positive for headaches. BP 122/70 Pulse 76 Temp 36.8 C (98.2 F) Resp 16 Wt 82.1 kg (181 lb) SpO2 96% BMI 28.35 kg/m PAST MEDICAL HISTORY Diagnosis Date Anxiety B12 deficiency Depression History of kidney surgery Hypotension Kidney anomaly, congenital horse shoe kidney Kidney stones Shoulder impingement bilateral, right is the worst Suicide attempt by drug ingestion ([facility]) 2016 Vitamin D deficiency PAST SURGICAL HISTORY Procedure Laterality Date APPENDECTOMY CALCULUS INFRARED SPECTROSCOPY CARPAL TUNNEL COLONOSCOPY FLX DX W/COLLJ SPEC WHEN PFRMD 01/26/2019 Colonoscopy ESOPHAGOGASTRODUODENOSCOPY TRANSORAL DIAGNOSTIC 01/26/2019 EGD S BALLOON,UTERINE ABLATION [id number] 1995 [place] ALLERGIES Seasonal Allergies MEDICATIONS pantoprazole DR (PROTONIX) 40 mg tablet Take 1 tablet by mouth once daily. venlafaxine ER (EFFEXOR XR) 37.5 mg 24 hr capsule Take 1 capsule by mouth once daily. amoxicillin-clavulanic acid (AUGMENTIN) 875-125 mg per tablet Take 1 tablet by mouth twice daily for 7 days. FAMILY HISTORY Problem Relation Age of Onset other (Other) Mother pacemaker/ defib Cancer Father lung cancer other (Other) Father hperlipidemia Hypertension Sister Cancer Brother lymphoma other (Other) Brother aids other (Other) Maternal Grandmother due to allergic reaction Cancer Other thyroid cancer Cancer Maternal Aunt bladder other (Other) Son gout Depression Sister Depression Sister Depression Sister other (6P 25 deletion) Grandchild Social History Tobacco Use Smoking status: Former Smokeless tobacco: Never Substance Use Topics Alcohol use: Not Currently Drug use: Never Objective Physical Exam Vitals and nursing note reviewed. Constitutional: Appearance: Normal appearance. HENT: Right Ear: Tympanic membrane, ear canal and external ear normal. Left Ear: Tympanic membrane, ear canal and external ear normal. Nose: Nasal tenderness, mucosal edema, congestion and rhinorrhea present. Mouth/Throat: Mouth: Mucous membranes are moist. Pharynx: Uvula midline. No oropharyngeal exudate or posterior oropharyngeal erythema. Cardiovascular: Rate and Rhythm: Normal rate and regular rhythm. Heart sounds: Normal heart sounds. Pulmonary: Effort: Pulmonary effort is normal. No respiratory distress. Breath sounds: Normal breath sounds. No wheezing or rales. Musculoskeletal: Cervical back: Neck supple. Lymphadenopathy: Cervical: No cervical adenopathy. Skin: General: Skin is warm and dry. Findings: No erythema or rash. Neurological: Mental Status: She is alert. ASSESSMENT/PLAN: 1. Bacterial sinusitis - ICD9: 473.9, 041.9, ICD10: J32.9, B96.89 - Will begin treatment with as per antibiotic as written, see orders - The patient should also be given flonase nasal spray for the first 5-7 days of treatment. - Supportive care with plenty of fluids, rest, and analgesia prn. - AMOXICILLIN 875 MG-POTASSIUM CLAVULANATE 125 MG TABLET - Follow-up with your PCP in 3-5 days if symptoms have not improved or sooner if symptoms worsen - Discussed red flags and need for immediate medical evaluation if any occur. - Discussed supportive care treatment with fluids, rest and analgesia. - Discussed expected course of illness Esha Rollins APRN.CNP documented in this encounterGreen [facility]12-10-2022 Instructions* Patient Instructions* Esha Rollins APRN.CNP - 07/25/2022 8:42 AM EST Images from the original note were not included. ASSESSMENT/PLAN: 1. Bacterial sinusitis - ICD9: 473.9, 041.9, ICD10: J32.9, B96.89 - Will begin treatment with as per antibiotic as written, see orders - The patient should also be given flonase nasal spray for the first 5-7 days of treatment. - Supportive care with plenty of fluids, rest, and analgesia prn. - AMOXICILLIN 875 MG-POTASSIUM CLAVULANATE 125 MG TABLET - Follow-up with your PCP in 3-5 days if symptoms have not improved or sooner if symptoms worsen - Discussed red flags and need for immediate medical evaluation if any occur. - Discussed supportive care treatment with fluids, rest and analgesia. - Discussed expected course of illness Esha Rollins APRN.CNP Adult Sinusitis Patient Education What is Sinusitis? Sinusitis [[id number]-jya-nsib-tis] is inflammation of the sinuses or swelling of the lining of the sinus cavity or nose. During an infection the sinuses become blocked with fluid causing swelling of the lining of the sinuses. Symptoms: (viral and bacterial infections) Stuffy nose Runny nose Postnasal drip Fever Toothache Headache Tiredness Cough Sore throat Face and head pressure and or pain Common causes: 98% of sinus infections are viral caused by viruses. Risk Factors of Sinusitis Include: Allergies, air pollution, indoor humidity and outdoor temperature changes, andstructural changes inthe nose may contribute to sinus pain, pressure and congestion. When to get help? Temperature greater than 100.4 F Symptoms lasting more than 10 days or worsening symptoms greater than 7-10 days. If you do not improve or worsen after a course of antibiotics, you should be re-examined. Diagnosis and Treatment: Your healthcare provider will ask a number of questions about your symptoms and how long they have occurred. If symptoms of sinusitis persist greater than 10 days, it is possible you have a bacterial sinus infection and an antibiotic is prescribed. If it is viral, antibiotics will not help. You may be instructed to take [id number] medications for symptoms. including fever reducers acetaminophen or ibuprofen, nasal saline spray, cough and cold preparations and decongestants as prescribed by the physician, nurse practitioner or physician geriatric nursing assistant. Self-Care and Prevention: Rest Fluids for hydration Good hand washing Humidifier Avoid smoking and exposure to second hand smoke Avoid sick contacts documented in this encounterGreen [facility]11-25-2022 History of Present illness Narrative* Alejandrina Graham MD - 07/10/2022 8:24 AM EST Chief Complaint Patient presents with: Depression HPI Polina Thomson is a 57 year old female who is contacted today for a virtual/telemedicine visit.This is an established patient of Dr. Alejandrina Graham MD. Follow up for effexor initiation. She notes feeling much better. Feels calmer, less anxious, feels she can handle stuff better. Even when her co workers mentions she is less stressed. She was also ill with the viral recently and that caused her to have have constipation. Constipation: she had it yesterday and this morning and could be from effexor. She has been taking magnesium.. miralax.or benefiber. Patient does not have enough vegetables in her system. Encouraged her to eat more and follow through with that. She chokes a lot. Patient did make appointment for cancer testing. With protonix she still has belching. And throwing up in her mouth. We discussed that she should use gassex. Past medical history, appointments, medications, allergies reviewed 07/10/2022 Previous Medical History PAST MEDICAL HISTORY Diagnosis Date Anxiety B12 deficiency Depression History of kidney surgery Hypotension Kidney anomaly, congenital horse shoe kidney Kidney stones Shoulder impingement bilateral, right is the worst Suicide attempt by drug ingestion (HCC) 2016 Vitamin D deficiency Previous Surgical History PAST SURGICAL HISTORY Procedure Laterality Date APPENDECTOMY CALCULUS INFRARED SPECTROSCOPY CARPAL TUNNEL COLONOSCOPY FLX DX W/COLLJ SPEC WHEN PFRMD 01/26/2019 Colonoscopy ESOPHAGOGASTRODUODENOSCOPY TRANSORAL DIAGNOSTIC 01/26/2019 EGD S BALLOON,UTERINE ABLATION [id number] 1995 [place] Family History FAMILY HISTORY Problem Relation Age of Onset other (Other) Mother pacemaker/ defib Cancer Father lung cancer other (Other) Father hperlipidemia Hypertension Sister Cancer Brother lymphoma other (Other) Brother aids other (Other) Maternal Grandmother due to allergic reaction Cancer Other thyroid cancer Cancer Maternal Aunt bladder other (Other) Son gout Depression Sister Depression Sister Depression Sister other (6P 25 deletion) Grandchild Patient Allergies ALLERGIES Allergen Reactions Seasonal Allergies Other: See Comments Sneezing, runny nose Current Medications Current Outpatient Medications on File Prior to Visit Medication Sig pantoprazole DR (PROTONIX) 40 mg tablet Take 1 tablet by mouth once daily. venlafaxine ER (EFFEXOR XR) 37.5 mg 24 hr capsule Take 1 capsule by mouth once daily. No current facility-administered medications on file prior to visit. Social History Social History Tobacco Use Smoking status: Former Smokeless tobacco: Never Substance Use Topics Alcohol use: Not Currently Drug use: Never Review of Symptoms GENERAL: No weight loss. No malaise or fevers HEENT: Negative for headaches No eye discharge or redness No earaches or drainage No sore throat Nose POS/NEG for congestion and nasal discharge NECK: Negative for lumps, pain or significant neck swelling RESPIRATORY: No wheezing, SOB, Difficulty breathing. CARDIOVASCULAR: Negative for chest pain GI: No nausea, vomiting, or diarrhea MUSCULOSKELETAL: Negative for muscle aches or bodyaches SKIN: Negative for lesions, rash, and itching Neuro: No lightheadedness or dizziness EXAM: There were no vitals taken for this visit. Deferred physical exam as visit was completed over the phone. Virtual visit completed using video, limited exam completed. General Appearance: Well appearing, alert, in no acute distress, well-hydrated, well nourished. Skin: Skin color Head: Normocephalic Psych: Attitude - cooperative, easily engaged in conversation Appearance - normal, hygiene and grooming appropriate Affect - euthymic, normal mood Mental status: Alert, attentive. Speech is clear and fluent with good repetition, comprehension Coordination: No abnormal or extraneous movements. Gait/Stance: Posture is normal. Health Maintenance List HEPATITIS B(1 of 3 - 3-dose series) Never done DTAP,TDAP,TD(1 - Tdap) Never done SHINGRIX VACCINE(1 of 2) Never done MAMMOGRAM due on 07/21/2022 PAP TESTING due on 11/11/2023 HPV TESTING due on 11/11/2023 DIABETES SCREEN due on 06/09/2025 LIPID SCREEN due on 06/09/2027 COLORECTAL CANCER SCREENING due on 01/26/2029 INFLUENZA Completed DEPRESSION ASSESSMENT Completed HEPATITIS C SCREENING Completed HIV SCREENING Completed COVID-19 VACCINE Completed Data reviewed Last 5 Encounter BP Readings: Date: BP: 06/09/2022 110/70 03/26/2021 122/86 02/06/2020 120/64 01/30/2019 124/72 12/14/2018 112/64 BMI Readings from Last 5 Encounters: 06/09/22 : 28.04 kg/m 03/26/21 : 27.94 kg/m 02/06/20 : 27.72 kg/m 01/30/19 : 26.06 kg/m 01/26/19 : 26.97 kg/m Last 5 Encounter Wt Readings: Date: Wt: 06/09/2022 81.2 kg (179 lb) 03/26/2021 80.9 kg (178 lb 6.4 oz) 02/06/2020 80.3 kg (177 lb) 01/30/2019 77.1 kg (170 lb) 12/14/2018 79.8 kg (176 lb) Medication and allergy list reviewed, reconciled and updated 07/10/2022 ASSESSMENT/PLAN: 1. Anxiety and depression - ICD9: 300.00, 311, ICD10: F41.9, F32.A (primary diagnosis) Well controlled currently on effexor 2. Belching - ICD9: 787.3, ICD10: R14.2 gassex 3. Constipation, unspecified constipation type - ICD9: 564.00, ICD10: K59.00 Discussed miralax Alejandrina Graham MD documented in this encounterGreen [facility]11-10-2022 Miscellaneous Notes* Telephone Encounter - Nila Ott RN - 06/25/2022 1:58 PM EST Patient returned call and given provider's message below. Pt transferred to ticket scheduler to schedule with Medical Genetics. Ellis Ott RN * Telephone Encounter - Suri Banks Pss - 06/25/2022 11:58 AM EST Left message for patient to contact office to schedule with medical genetics. * Telephone Encounter - Alejandrina Graham MD - 06/22/2022 8:52 PM EST Please assist patient in getting scheduled with medical genetics Regards, Alejandrina Graham MD documented in this encounterGreen Cross Hospital11-03-2022 Miscellaneous Notes* Telephone Encounter - Maninder Lui RPh - 06/18/2022 9:[address] Graham, At [facility] they have a pharmacist that specializes in pharmacogenomics and is able to order, interpret and make recommendations for genetic testing. I think she would benefit from setting up a visit there. From information they have shared with me in the past, they perform a cheek swab as it ismore cost effective then doing a blood draw for genetic testing. [email or web address] I have pended the referral for pharmacogenomics. The phone number for patient to schedule is as follows: [phone]. They may be able to offer virtual visits if patient not able to travel to [place] for appointment. Maninder Lui, PharmD, BCACP Primary Care Clinical Pharmacist * Telephone Encounter - Alejandrina Graham MD - 06/17/2022 8:35 PM EDT Dear Maninder and Karla . I would appreciate any help with this patients request to find out genetic enzymes testing rafi for Ssri and snri efficacy based on particular genotype I have never ordered them but I know there are things that can be ordered Regards, Alejandrina Graham MD documented in this encounterGreen [facility]10-25-2022 History of Present illness Narrative* Alejandrina Graham MD - 06/09/2022 8:19 AM EDT Reason for Visit Patient presents with: Follow Up: follow up -labs Polina Thomson is a 57 year old female who presents here today for Above Complaints.. Health Maintenance HEPATITIS B(1 of 3 - 3-dose series) HEPATITIS C SCREENING HIV SCREENING DTAP,TDAP,TD(1 - Tdap) SHINGRIX VACCINE(1 of 2) COVID-19 VACCINE(3 - Booster for Moderna series) DEPRESSION ASSESSMENT DIABETES SCREEN INFLUENZA(1) MAMMOGRAM HPI Gerd: symptoms include, she throws up in her mouth, it moon her throat, sometimes she wakes up with sore throat and other times wakes up being raspy. She cannot do spaghetic sauce, fried donuts, cant eat beef. Liked protonix better than nexium, it worked. Depression:Patient is struggling with who has ED. But he blames her for his issues, she hasstruggled with other marital issues for a while including infidelity and she is sad and depressed alot. This has been causing her anxiety and depression and a lot of grief. No problem-specific Assessment & Plan notes found for this encounter. PAST MEDICAL HISTORY Diagnosis Date Anxiety B12 deficiency Depression History of kidney surgery Hypotension Kidney anomaly, congenital horse shoe kidney Kidney stones Shoulder impingement bilateral, right is the worst Suicide attempt by drug ingestion (HCC) 2016 Vitamin D deficiency PAST SURGICAL HISTORY Procedure Laterality Date APPENDECTOMY CALCULUS INFRARED SPECTROSCOPY CARPAL TUNNEL COLONOSCOPY FLX DX W/COLLJ SPEC WHEN PFRMD 01/26/2019 Colonoscopy ESOPHAGOGASTRODUODENOSCOPY TRANSORAL DIAGNOSTIC 01/26/2019 EGD S BALLOON,UTERINE ABLATION [id number] 1995 [place] FAMILY HISTORY Problem Relation Age of Onset other (Other) Mother pacemaker/ defib Cancer Father lung cancer other (Other) Father hperlipidemia Hypertension Sister Cancer Brother lymphoma other (Other) Brother aids other (Other) Maternal Grandmother due to allergic reaction Cancer Other thyroid cancer Cancer Maternal Aunt bladder other (Other) Son gout Depression Sister Depression Sister Depression Sister other (6P 25 deletion) Grandchild Social History Tobacco Use Smoking status: Former Smokeless tobacco: Never Substance Use Topics Alcohol use: Not Currently Drug use: Never Past medical history, appointments, medications, allergies reviewed. Pertinent Lab/Diagnostic Studies are reviewed and discussed today Current Outpatient Medications: esomeprazole (NEXIUM) 20 mg capsule albuterol HFA (PROVENTIL HFA, VENTOLIN HFA) 90 mcg/actuation inhaler cetirizine 10 mg ODT cyanocobalamin 1,000 mcg/mL Syringe with Needle, Disp, 1 mL 25 gauge x 1 syrg folic acid/multivit-min/lutein (CENTRUM SILVER ORAL) Review of Systems CONSTITUTIONAL: No fevers, chills night sweats, unintended weight loss CARDIOVASCULAR: No chest pain, dyspnea, palpitations, orthopnea, PND, ankle edema. PULM: No dyspnea, unexplained cough. GI: No dysphagia/odynophagia, problematic reflux, constipation, diarrhea, changes in stool habits, hematochezia, melena. : No new urinary complaints, including dysuria, gross hematuria or pyuria. NEURO: No new balance problems, peripheral weakness/paresthesias or numbness of concern. Physical Exam BP 110/70 (BP Site: Left Arm, BP Position: Sitting, BP Cuff Size: Large Adult) Pulse 67 Temp 37.4 C (99.4 F) Resp 12 Ht 170.2 cm (5' 7) Wt 81.2 kg (179 lb) SpO2 99% BMI 28.04 kg/m General appearance: Well appearing, alert, in no acute distress, well nourished. Skin: Skin color, texture, turgor normal, no suspicious rashes or lesions Head: Normocephalic, no masses, lesions, tenderness or abnormalities Eyes: Anicteric sclera. Pupils are equally round and reactive to light. Extraocular movements are intact. Lungs: Lungs clear to auscultation. No wheezing, rhonchi, rales Heart: RRR without murmur, gallop, or rubs. Extremities: No deformities, edema, skin discoloration, clubbing or cyanosis. Good capillary refill. ASSESSMENT/PLAN: 1. Anxiety and depression - ICD9: 300.00, 311, ICD10: F41.9, F32.A (primary diagnosis) Discussed SSRI's in detail, their side effects including weight gain in some, sexual side effects, that it needs to build up in their system and usually in the 3rd week they will start feeling the effects. Also discussed that each SSRI may affect differently , might have to try a couple before finding out a perfect fit. - VENLAFAXINE ER 37.5 MG CAPSULE,EXTENDED RELEASE 24 HR 2. Special screening examination for viral disease - ICD9: V73.99, ICD10: Z11.59 - HEP C AB IA W/CONF SCRN 3. Screening for HIV (human immunodeficiency virus) - ICD9: V73.89, ICD10: Z11.4 - HIV 1 2 COMBO(AG/AB),WITH REFLEX TO DIFFERENTIATION 4. Lipid screening - ICD9: V77.91, ICD10: Z13.220 - LIPID PANEL BASIC 5. Encounter for screening examination for impaired glucose regulation and diabetes mellitus - ICD9: V77.1, ICD10: Z13.1 - BASIC METABOLIC PNL 6. Vitamin B12 deficiency - ICD9: 266.2, ICD10: E53.8 - CBC + DIFF - VITAMIN B12 BLOOD 7. Gastroesophageal reflux disease without esophagitis - ICD9: 530.81, ICD10: K21.9 - PANTOPRAZOLE 40 MG TABLET,DELAYED RELEASE Alejandrina Graham MD [facility] Author Michael Grier [facility] Note Date/Time November 29, 2024 6:3 8am [facility] Medical Records Department [address] [place] [address] Pre-Anesthesia Evaluation 11/29/24 0638 MR#: [id number] Acct: [id number] Name: POLINA THOMSON Rep #:[id number] : 1965 59 From: Michael Grier MD PCP: Dr. Willie Adams MD Status:R EG SDC Y Race: C Location: [place] [address] ASA Classification* ASA Classification ASA Classification: 2 Assessment & Plan Anesthesia* Anesthesia Assessment Anesthesia Assessment: Discussed sedation and/or anesthesia options, risks, benefits, and alternatives with patient/parents/legal guardian/POA. Questions invited. The patient/parents/legal guardian/POA seems to understand and agrees to proceedwith anesthesia plan. Reviewed the physical assessment, medical history, allergy history and patient home medications list prior to surgery/procedure/anesthetic and documented any changes. Performed airway and anesthesia risk assessments. Anesthesia Type Anesthesia Type: MAC Anesthesia Focused Assessment* Temperature: 99.2 F Pulse Rate: 56 Blood Pressure: 142/65 Respiratory Rate: 16 Pulse Ox: 95 Airway Assessment Mouth opens: >3 cm Mallampati Score: II Focused Labs Anesthesia Preop lab: CBC WBC 5.6 K/mm3 (4.4-11.0) 11/09/24 06:45 11/09/24 RBC 4.55 M/mm3 (4.2-5.4) 11/09/24 06:45 11/09/24 Hgb 13.9 g/dL (12.0-15.0) 11/09/24 06:45 11/09/24 Hct 41.8 % (37-47) 11/09/24 06:45 11/09/24 Plt Count 242 K/mm3 (150-450) 11/09/24 06:45 11/09/24 CHEMISTRY Potassium 4.5 mmol/L (3.3-5.1) 11/09/24 06:45 11/09/24 Sodium 140 mmol/L (133-145) 11/09/24 06:45 11/09/24 BUN 16 mg/dL (4-19) 11/09/24 06:45 11/09/24 Creatinine 1.05 mg/dL (0.70-1.20) 11/09/24 06:45 11/09/24 Glucose 104 mg/dL (70-99) H 11/09/24 06:45 11/09/24 TSH 3.490 uIU/mL (0.300-4.200) 11/09/24 06:45 10/15 03/09 COAG Urine Test Negative Negative 02/05/20 10:30 02/05/20 Tst Clinic Negative 11/23/24 15:15 11/23/24 Pre-Assessment Diagnosis/Proposed Procedure Planned Operative Procedure(s): EGD Anesthesia History Anesthesia History - physical therapy assistant: Anesthesia History - physical therapy assistant Hx Hospitalization No 11/24/24 13:43 Any Problems With Anesthesia No 11/24/24 13:43 Cholinesterase deficiency No 11/24/24 13:43 You/Your Family Experience No 11/24/24 13:43 fever (hyperthermia) with Relationship Recent Exposure to Contagious No 11/29/24 05:40 Disease Does patient have nerve No 11/24/24 13:43 stimulator Patient instructed to have device shut off --Does patient have Pacemaker No 11/29/24 05:40 or ICD? When Was Last Pacemaker Check QUESTION #4 FULL TEXT: You/Your Family Experience fever (hyperthermia) with Anesthesia Last Oral Intake Last Oral intake: Last Oral Intake NPO since Meds taken in AM with sips of No 11/29/24 05:40 water? Meds patient instructed to take am of surgery PONV PONV - physical therapy assistant: PONV - physical therapy assistant Female Yes 11/24/24 13:43 HX of Motion Sickness Yes 11/24/24 13:43 HX of N/V After Surgery Yes 11/24/24 13:43 Non-Smoker Yes 11/24/24 13:43 Duration of Surgery greater No 11/24/24 13:43 than 60 minutes Number of Risk Factors 4 11/24/24 13:43 PONV Score Severe Risk 11/24/24 13:43 Height & Weight Height & Weight: Anesthesia: Height & Weight Height 5 ft 7 in 11/29/24 05:40 Weight: 90 kg 11/29/24 05:40 Body Mass Index (BMI) 31.1 11/29/24 05:40 Respiratory Assessment Respiratory Assessment - physical therapy assistant: Respiratory Tract Infection Hx - physical therapy assistant Hx Respiratory Tract Infection No 11/24/24 13:43 STOP Sleep Apnea STOP Sleep Apnea - physical therapy assistant: STOP Sleep Apnea - physical therapy assistant Hx Hypertension No 11/24/24 13:43 Hx Sleep Apnea No 11/24/24 13:43 CPAP BIPAP Do you snore loudly (louder Yes 11/24/24 13:43 than talking or can be heard Do you often feel tired/ No 11/24/24 13:43 fatigued/ sleepy during daytime? Has anyone observed you stop No 11/24/24 13:43 breathing during sleep? STOP Results Negative 11/24/24 13:43 QUESTION #5 FULL TEXT : Do you snore loudly (louder than talking or can be heard through closed doors)? Tobacco Use History Tobacco Use History - physical therapy assistant: Tobacco Use History - physical therapy assistant Tobacco Use Smoking Status Former smoker 11/24/24 13:43 Hx Tobacco Use No 11/24/24 13:43 Years Smoking Packs Smoked per Day Smoking Cessation Date was No - quit smoking greater 11/24/24 13:43 within the last 15 years than 15 years ago Hx Smoking Cessation Date Hx Smoking Cessation Counseling Hematologic Medial History Hematologic Hx - physical therapy assistant: Hematologic Medical Hx - continuous conveyor screen drier Hx of Blood Transfusion No 11/24/24 13:43 Hx of Transfusion in last 3 No 11/24/24 13:43 Months Date of Last Transfusion (if within last 3 months) Ever experience any problems No 11/24/24 13:43 with transfusion(s)? Specify any problems Hx of Preganancy in last 3 No 11/24/24 13:43 Months Nurse Filling Out Transfusion JZOLLINGE 11/24/24 13:43 & Questions: Date: 11/24/24 11/24/24 13:43 Time: 13:46 11/24/24 13:43 Patient unable to answer at this time (ie. confused, unrespo /Reproduction History /Reproductive History - physical therapy assistant: /Reproductive Hx- physical therapy assistant Hx Now No 11/24/24 13:43 Gestational Age (in weeks): EDC: Hx Hx Para Hx Section SAB No 11/24/24 13:43 PFSH Medical History Wears glasses Depression Anxiety Fatty liver Injury of head and neck Loss of consciousness Dietary restriction History of IBS Non-smoker Blood glucose elevated Hyperlipidemia Anxiety and depression Chronic constipation Greater trochanter fracture Palpitations with regular cardiac rhythm Vaginal delivery Horseshoe kidney Vision problems Skin cancer GERD (gastroesophageal reflux disease) Kidney stones IBS (irritable bowel syndrome) High cholesterol Hypertension Hearing problem Migraines Frequent headaches Gastrointestinal problem Emotional problems Chronic bronchitis Carpal tunnel syndrome Asthma Anemia Seasonal allergies Home Medications ?Medication ?Instructions ?Recorded ?Last Taken ?Type ibuprofen 600 mg tablet 600 mg PO Q6H PRN PRN Pain S core 02/05/20 Unknown Rx 1-05/25 #20 tabs mecobalamin (vitamin B12) 500 mcg mcg PO 09/08/2411/14 History chewable tablet propranolol 60 mg capsule,24 60 mg PO QHS 09/08/24 History hr,extended release bbqbfboi-hfi-uckfg ac 400 tab PO 11/08/24 11/27/24 His tory mcg-calcium carb 500 mg-vit K1 20 mcg tablet (Women's 50 Plus Multivitamin) sennosides 8.6 mg capsule (senna) 8.6 mg PO QDAY PRN c onstipation 11/08/24 Unknown History vit C 180 mg-D3 10 mcg-zinc 5.5 cap PO 11/08/24 History se-lnepiv-aelwkwe-calvin-herb capsule (Immune Support (vit c, d and zinc)) sumatriptan succinate 25 mg tablet See Rx Instructions PO .COMPLEX 11/29/24 Unknown History (Imitrex) PRN migraine headache venlafaxine 75 mg capsule,extended 75 mg PO QHS 11/28/24 History release 24 hr Allergy/AdvReac Type Severity Reaction Status Date / Time perfume Allergy throat Verified 11/24/24 13:31 swelling Family History Mother Anxiety Depression Heart disease Mental disorder Severe allergy Pacemaker Father High cholesterol Cancer lung/lymphoma Aunt Arthritis Cancer lymphoma Stomach cancer maternal aunt Aunt Cancer Sister Depression Mental disorder Hypertension Brother Cancer lymphoma Depression Mental disorder Grandmother Heart disease Severe allergy Cancer in stomach Grandfather Suicide Surgical History H/O lithotripsy H/O prior ablation treatment History of appendectomy History of carpal tunnel surgery Social History adopted: No household members: spouse number of children: 3 current occupational status: employed current occupation: [employer] current occupational exposures/hazards: No pets and animals: No leisure activities: clubs, art, fishing, reading and volunteer work history of recent travel: No sexually active: Yes Smoking Status: Former smoker Tobacco: How many years used: 2 alcohol intake: current alcohol intake frequency: holidays/special occasions only Alcohol type: wine substance use type: does not use diet: lactose free and low salt well-balanced diet: rarely or never caffeine: Yes Type: carbonated beverages, coffee and tea eating out: other during the past year weight has: increased > 10 lbs what type of physical activity do you participate in: walking seatbelt use: always do you feel safe at home: Yes Review of Systems (Anesthesia) ROS Narrative System reviewed and no additional complaints, except as documented. 11/29/24 0638 <Electronically signed by Michael Grier MD > Date _ Michael Wen Signature: Date CC: ~ Signed [facility] Work Phone: Consult note Author Lele Keys [facility] Note Date/Time November 29, 2024 7:0 9am [facility] Medical Records Department [address] [place] [address] Anesthesia Postop Eval I 11/29/24707 MR#: [id number] Acct: [id number] Name: POLINA THOMSON Rep #:[id number] : 1965 59 From: Lele Keys PCP: Dr. Willie Adams MD Status:R EG [facility] Y Race: C Location: [place] [address] Anesthesia: Postop Eval I Current Vital Signs Temperature: 98 F Pulse Rate: 53 Blood Pressure: 107/61 Respiratory Rate: 16 Pulse Ox: 95 Oxygen Delivery Method: Room Air Assessment Airway patent: Yes Spontaneous unlabored respirations: Yes Mental status: Awake and Calm nausea: No Vomiting: No Anesthesia Complication: No Fluid Hydration Crystalloid volume administer (ml): 30 Total IV fluid infused: 30 Progress Note Anesthesia document: Postop Eval 1 completed: Yes 11/29/2409 <Electronically signed by Lele Keys > Date _ Lele Wen Signature: Date CC: ~ Signed [facility] Work Phone: Consult note Author Michael Grier [facility] Note Date/Time November 29, 2024 7:4 8am [facility] Medical Records Department [address] [place] [address] Anesthesia Postop Eval II 11/29/2430 MR#: [id number] Acct: [id number] Name: POLINA THOMSON Rep #:[id number] : 1965 59 From: Michael Grier MD PCP: Dr. Willie Adams MD Status:R [facility] Y Race: C Location: [place] [address] Anesthesia Postop Eval I Sum Postop Eval Completion status Anesthesia document: Postop Eval 1 completed: Yes Anesthesia Postop Eval I Summary Anesthesia Postop Eval I Summary: Anesthesia Postop Eval I: Assessment Summary Airway patent Yes 11/29/24 07:09 [email or web address] Spontaneous unlabored Yes 11/29/24 07:09 [email or web address] respirations Mental status Awake,Calm 11/29/24 07:09 [email or web address] nausea No 11/29/24 07:09 [email or web address] Vomiting No 11/29/24 07:09 [email or web address] Anesthesia Postop Eval I: Fluid Summary Crystalloid volume administer 30 11/29/24 07:09 [email or web address] (ml) Colloids volume administered ( ml) Blood Product volume administered (ml) Total IV fluid infused 30 11/29/24 07:09 [email or web address] Anesthesia Postop Eval I: Summary Notes Anesthesia Complication No 11/29/24 07:09 [email or web address] Anesthesia Complication Comment: Post-operative progress note Anesthesia: Postop Eval II Evaluation Mental status: Awake Pain Level: 0 nausea: No Vomiting: No 11/29/24 0730 <Electronically signed by Michael Grier MD > Date _ Michael Grier MD Cosign Signature: Date CC: ~ Signed [facility] Work Phone: Evaluation note* Diagnosis Anxiety and depression- Primary Dysthymic disorder Special screening examination for viral disease Special screening examination for unspecified viral disease Screening for HIV (human immunodeficiency virus) Special screening examination for other specified viral diseases Lipid screening Screening for lipoid disorders Encounter for screening examination for impaired glucose regulation and diabetes mellitus Vitamin B12 deficiency Other B-complex deficiencies Gastroesophageal reflux disease without esophagitis Esophageal reflux Need for vaccination Need for prophylactic vaccination and inoculation against unspecified single disease [facility] Anxiety and depression- Primary Dysthymic disorder [facility] Diagnosis Anxiety and depression- Primary Dysthymic disorder Belching Flatulence, eructation, and gas pain Constipation, unspecified constipation type [facility] Bacterial sinusitis- Primary Unspecified sinusitis (chronic) [facility] Diagnosis Encounter for screening mammogram for breast cancer [facility] Diagnosis Hyperlipidemia, unspecified hyperlipidemia type- Primary Anxiety and depression Dysthymic disorder Belching Flatulence, eructation, and gas pain RUQ pain Abdominal pain, right upper quadrant Allergy to perfume Allergy, unspecified not elsewhere classified Airway compromise Other diseases of respiratory system, not elsewhere classified Panic attacks Panic disorder without agoraphobia [facility] Diagnosis Eructation Flatulence, eructation, and gas pain Abdominal bloating Flatulence, eructation, and gas pain RUQ pain Abdominal pain, right upper quadrant [facility] Diagnosis Anxiety and depression Dysthymic disorder [facility] Diagnosis Rash and nonspecific skin eruption- Primary Rash and other nonspecific skin eruption Arthralgia, unspecified joint Malaise Other malaise and fatigue documented in this encounter [facility] note* Diagnosis Anxiety and depression- Primary Dysthymic disorder Panic attacks Panic disorder without agoraphobia Moderate persistent asthma without complication Unspecified asthma Allergy to perfume Allergy, unspecified not elsewhere classified Pain in right leg [facility]* Diagnosis Primary hypertension- Primary Unspecified essential hypertension Anxiety and depression Dysthymic disorder Moderate persistent asthma without complication Unspecified asthma Vision disturbance Unspecified visual disturbance Encounter for therapeutic drug monitoring documented in this encounter [facility] note* Diagnosis Hyperlipidemia Other and unspecified hyperlipidemia documented in this encounter [facility] note* Diagnosis Encounter for screening mammogram for breast cancer documented in this encounter [facility] note* Diagnosis Primary hypertension- Primary Unspecified essential hypertension Anxiety and depression Dysthymic disorder Hyperlipidemia, unspecified hyperlipidemia type documented in this encounter [facility] note* Diagnosis Thyroid enlargement- Primary Goiter, unspecified Weight gain Abnormal weight gain Anxiety and depression Dysthymic disorder Encounter for therapeutic drug monitoring Thyroid enlargement Goiter, unspecified documented in this encounter [facility] note* Diagnosis Thyroid enlargement Goiter, unspecified documented in this encounter [facility] note* Diagnosis Trochanteric bursitis of right hip- Primary Enthesopathy of hip region Anxiety and depression Dysthymic disorder Left hip pain Pain in joint, pelvic region and thigh documented in this encounter [facility] note* Diagnosis Anxiety and depression Dysthymic disorder documented in this encounter [facility] note* Diagnosis Left hip pain Pain in joint, pelvic region and thigh [facility] Author Adria Cisse [facility] Note Date/Time November 29, 2024 6:4 7am [facility] Medical Records Department [address] [place] [address] History & Physical Exam 11/29/24 0645 MR#: [id number] Acct: [id number] Name: POLINA THOMSON Rep #:[id number] : 1965 59 From: Adria Cisse DO PCP: Dr. Willie Adams MD Status:R EG [facility] Location: [place] [address] HPI - General General Date of Admission: 11/29/24 Date of Service: 11/29/24 HPI Narrative POLINA THOMSON, is a 59 F who presents Chief Complaint: bloating Details: POLINA THOMSON, is a 59 F who presents to the office today for establishment with [facility]. Pt has had GI issues for many years. Over the past couple months she has had worsening symptoms with abd distention, early satiety, n/v, heartburn and constipation. She is not eating much but is gaining weight. She is gets full very quickly after she starts eating. She is having at least one episode of emesis weekly. She is taking senna daily for constipation and has been for aboutone year. She does not have a bm if she does not take it. Her bm are typically small and hard. Her last EGD and colonoscopy was in 2019 with normal findings. [facility] Medical History (Updated 11/29/24 @ 06:[address] Covington Friend, DO) Wears glasses Depression Anxiety Fatty liver Injury of head and neck Loss of consciousness Dietary restriction History of IBS Non-smoker Blood glucose elevated Hyperlipidemia Anxiety and depression Chronic constipation Greater trochanter fracture Palpitations with regular cardiac rhythm Vaginal delivery Horseshoe kidney Vision problems Skin cancer GERD (gastroesophageal reflux disease) Kidney stones IBS (irritable bowel syndrome) High cholesterol Hypertension Hearing problem Migraines Frequent headaches Gastrointestinal problem Emotional problems Chronic bronchitis Carpal tunnel syndrome Asthma Anemia Seasonal allergies Home Medications ?Medication ?Instructions ?Recorded ?Last Taken ?Type ibuprofen 600 mg tablet 600 mg PO Q6H PRN PRN Pain S core 02/05/20 Unknown Rx -05/25 #20 tabs mecobalamin (vitamin B12) 500 mcg mcg PO 09/08/2411/14 History chewable tablet propranolol 60 mg capsule,24 60 mg PO QHS 09/08/24 History hr,extended release uyeeibor-zek-psygu ac 400 tab PO 11/08/24 11/27/24 His tory mcg-calcium carb 500 mg-vit K1 20 mcg tablet (Women's 50 Plus Multivitamin) sennosides 8.6 mg capsule (senna) 8.6 mg PO QDAY PRN c onstipation 11/08/24 Unknown History vit C 180 mg-D3 10 mcg-zinc 5.5 cap PO 11/08/24 History gb-rnzhju-urgyinv-calvin-herb capsule (Immune Support (vit c, d and zinc)) sumatriptan succinate 25 mg tablet See Rx Instructions PO .COMPLEX 11/29/24 Unknown History (Imitrex) PRN migraine headache venlafaxine 75 mg capsule,extended 75 mg PO QHS 11/28/24 History release 24 hr Allergy/AdvReac Type Severity Reaction Status Date / Time perfume Allergy throat Verified 11/24/24 13:31 swelling Family History Mother Anxiety Depression Heart disease Mental disorder Severe allergy Pacemaker Father High cholesterol Cancer lung/lymphoma Aunt Arthritis Cancer lymphoma Stomach cancer maternal aunt Aunt Cancer Sister Depression Mental disorder Hypertension Brother Cancer lymphoma Depression Mental disorder Grandmother Heart disease Severe allergy Cancer in stomach Grandfather Suicide Surgical History H/O lithotripsy H/O prior ablation treatment History of appendectomy History of carpal tunnel surgery Social History adopted: No household members: spouse number of children: 3 current occupational status: employed 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 current occupational exposures/hazards: No pets and animals: No leisure activities: clubs, art, fishing, reading and volunteer work history of recent travel: No sexually active: Yes Smoking Status: Former smoker Tobacco: How many years used: 2 alcohol intake: current alcohol intake frequency: holidays/special occasions only Alcohol type: wine substance use type: does not use diet: lactose free and low salt well-balanced diet: rarely or never caffeine: Yes Type: carbonated beverages, coffee and tea eating out: other during the past year weight has: increased > 10 lbs what type of physical activity do you participate in: walking seatbelt use: always do you feel safe at home: Yes ROS Constitutional Constitutional: Denies fatigue, fever(s), poor appetite, weight gain or weight loss Gastrointestinal Gastrointestinal: Denies belching, bloating, change in bowel habits, change in stool character, chewing difficulty, coffee ground emesis, constipation, cramping, diarrhea, dyspepsia, dysphagia, early satiety, excessive flatus, fecalincontinence, heartburn, hematemesis, hematochezia, hemorrhoids, loose stools, melena, nausea, odynophagia, rectal bleeding, tenesmus, vomiting or weight changes Vital Signs Vital Signs Vital Signs: 11/29/24 05:40 11/29/24 05:40 11/29/24 06:38 Temperature 99.2 F H 99.2 F H Temperature Source Temporal Pulse Rate 56 L 56 L Respiratory Rate 16 16 Respiratory Pattern Normal Blood Pressure 142/65 H 142/65 H Blood Pressure Mean 90 Blood Pressure Source Monitor Blood Pressure Position Sitting Blood Pressure Location Left Arm Pulse Ox 95 95 Oxygen Delivery Method Room Air Weight Weight: 198 lb 6.656 oz Body Mass Index (BMI) 31.1 Physical Exam Const alert, oriented x3, no apparent distress and healthy appearing General Appearance: cooperative GI normal to inspection, nondistended, normoactive bowel sounds, soft to palpation,non-tender and non-distended Percussion: normal to percussion Rectal Exam: deferred Assessment & Plan Assessment/Plan (1) Bloating: PLAN: Assessment and Plan Assessment and Plan (1) Gastroesophageal reflux disease: Plan: This is a 59 yo female pt who has had constipation and GERD for many years. Overthe past couple of months she has developed early satiety and abd bloating. She is here for evaluation of these symptoms. Pt will have a GES to assess gastric emptying time. Will consider treatment with metoclopramide pending these results. She may need to have an upper endoscopy Counseled on gastroparesis diet. Regarding her constipation, I encouraged discontinuation of daily senna. Samples of Ibsrela given. If she has positive results will prescribe this to her. Her last colonoscopy was normal in 2019 and her constipation is not new. She will f/u in 2 months. -GES -Trial Ibsrela -Consider EGD -f/u 2 months (2) Bloating: Status: Acute (3) Constipation: Status: Acute Orders: Orders Gastric Emptying Study Today R14.0 - Abdominal distension (gaseous) (2) GERD (gastroesophageal reflux disease): 11/29/24 0647 <Electronically signed by Adria Friend DO> Cosigner Signature (if applicable): CC: Dr. Willie Adams MD; Adria Friend, DO~ Signed [facility] Work Phone: Reason for referral (narrative)* Diagnostic Procedure Only (Routine) - Pending Review Specialty Diagnoses / Procedures Referred By Britany t Referred To Contact [facility] Diagnoses Encounter for screening mammogram for breast cancer Procedures TORSTEN SCREENING SCREENING MAMMOGRAPHY BI 2-VIEW BREAST INC Alejandrina Zamora MD [address] [place] [address] [facility] [address] [place] [address] Referral ID Status Reason Start Date Expiration Date Visits Requested Visits Authorized [id number] Pending Review Auto-Generat ed Referral 08/26/2022 09/25/2023 1 1 [facility] for referral (narrative)* Diagnostic Procedure Only (Urgent) - Closed Specialty Diagnoses / Procedures Referred By Britany t Referred To Contact [facility] Diagnoses Thyroid enlargement Procedures US THYROID/PARATHYROID US THYROID/PARATHYROID US SOFT TISSUE HEAD & NECK REAL TIME IMGE DOCM Laurel Murry APRN.WINDOWS ARCHITECT [address] [place] [address] [place] [address] Referral ID Status Reason Start Date Expiration Date V isits Requested Visits Authorized [id number] Closed Auto-Generate d Referral 04/05/2024 05/05/2025 1 1 * Diagnostic Procedure Only (Urgent) - Closed Specialty Diagnoses / Procedures Referred By Britany t Referred To Contact US IMAGING Diagnoses Thyroid enlargement Procedures US THYROID/PARATHYROID US THYROID/PARATHYROID US SOFT TISSUE HEAD & NECK REAL TIME IMGE DOCLaurel Bunch APRN.CNP [address] [place] [address] [place] [address] Referral ID Status Reason Start Date Expiration Date V isits Requested Visits Authorized [id number] Closed Auto-Generate d Referral 04/05/2024 05/05/[address] [facility] for referral (narrative)* Diagnostic Procedure Only (Urgent) - Closed Specialty Diagnoses / Procedures Referred By Contac t Referred To Contact US IMAGING Diagnoses Thyroid enlargement Procedures US THYROID/PARATHYROID US THYROID/PARATHYROID US SOFT TISSUE HEAD & NECK REAL TIME IMGE DOCM Laurel Murry APRN.CNP [address] [place] [address] [place] [address] Referral ID Status Reason Start Date Expiration Date V isits Requested Visits Authorized [id number] Closed Auto-Generate d Referral 04/05/2024 05/05/[address] [facility] for referral (narrative)* Diagnostic Procedure Only (Routine) - Pending Review Specialty Diagnoses / Procedures Referred By Britany t Referred To Contact XR IMAGING Diagnoses Left hip pain Procedures XR HIP BILATERAL 5V PEL/AP/LAT EACH HIP RADEX HIPS BILATERAL WITH PELVIS MINIMUM 5 VIEWS Alejandrina Graham MD [facility] [place] [id number] [place] [address] Referral ID Status Reason Start Date Expiration Date Visits Requested Visits Authorized [id number] Pending Review Auto-Generat ed Referral 4 07/26/[address] [facility] for referral (narrative)No reason for referral information availableWS[facility] Work Phone: Reason for visit Narrative* Diagnostic Procedure Only (Routine) - Closed Specialty Diagnoses / Procedures Referred By Contac t Referred To Contact BR IMAGING Diagnoses Encounter for screening mammogram for breast cancer Procedures TORSTEN SCREENING SCREENING MAMMOGRAPHY BI 2-VIEW BREAST INC CAD Alejandrina Graham MD [address] [place] [address] [facility] [address] [place] [address] Referral ID Status Reason Start Date Expiration Date V isits Requested Visits Authorized [id number] Closed Auto-Generate d Referral 08/25/2023 09/23/[address] [facility] for visit Narrative* Diagnostic Procedure Only (Urgent) - Closed Specialty Diagnoses / Procedures Referred By Britany zapien Referred To Contact US IMAGING Diagnoses Thyroid enlargement Procedures US THYROID/PARATHYROID US THYROID/PARATHYROID US SOFT TISSUE HEAD & NECK REAL TIME IMGE DOCM Laurel Murry APRN.WINDOWS ARCHITECT [address] [place] [address] [place] [address] Referral ID Status Reason Start Date Expiration Date V isits Requested Visits Authorized [id number] Closed Auto-Generate d Referral 04/05/2024 05/05/[address] [facility] for visit Narrative* Diagnostic Procedure Only (Routine) - Pending Review Specialty Diagnoses / Procedures Referred By Britany zapien Referred To Contact XR IMAGING Diagnoses Left hip pain Procedures XR HIP BILATERAL 5V PEL/AP/LAT EACH HIP RADEX HIPS BILATERAL WITH PELVIS MINIMUM 5 VIEWS Alejandrina Graham MD [address] [place] [address] [place] [address] Referral ID Status Reason Start Date Expiration Date Visits Requested Visits Authorized [id number] Pending Review Auto-Generat ed Referral 4 07/26/2025 1 1 [facility] Summary Purpose Family History No Family History Records Found Relationship Condition Age at Onset Recorded Date/T adalberto mother Anxiety Unknown Depression Unknown Cardiac disease Unknown Mental disorder Unknown Severe allergy Unknown Presence of cardiac pacemaker Unknown father High blood cholesterol Unknown Malignant neoplasm Unknown aunt Arthritis Unknown Malignant neoplasm of stomach Unknown aunt Malignant neoplasm Unknown sister Depression Unknown Hypertension Unknown brother Malignant neoplasm Unknown grandmother Cardiac disease Unknown grandfather Suicide Unknown Advance Directives No Advanced Directives Records Found Advance Directive Response Recorded Date/ Time Living Will Yes November 24, 2024 1:43pm Do you have a Healthcare Power of Ore Storage Drier? Yes November 24, 2024 1:43pm Name of Medical Power of Ore Storage Drier November 24, 2024 1:43pm Reason for Referral Specialty Diagnoses / Procedures Referred By Britany zapien Referred To Contact Diagnoses Allergy to perfume Airway compromise Alejandrina Graham MD [address] [place] [address] Referral ID Status Reason Start Date Expiration Date Visits Re quested Visits Authorized [id number] Closed 1 1 Specialty Diagnoses / Procedures Referred By Britany zapien Referred To Contact General Surgery Diagnoses RUQ pain Procedures CONSULT TO GENERAL SURGERY OFFICE/OUTPATIENT [facility] 60-74 MINUTES Alejandrina Graham MD [address] [place] [address] Referral ID Status Reason Start Date Expiration Date V isits Requested Visits Authorized [id number] Closed PCP Requested Referral 12/15/2022 12/15/2023 1 1 Chief Complaint and Reason for Visit Chief Complaint Admit Date Gastroesophageal reflux disease (GERD) F ebruary 2024 7:09am ABD PAIN October 04, 2024 1:03pm 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 SENT November 08, 2024 5: 23pm E ORDERS November 09, 2024 6:4 0am 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 POST MENOPAUSAL BLEEDING November 13 5:55pm Reason for Visit Admit Date Constipation September 19, 2024 7 :09am Bloating September 19, 2024 7 :09am Gastroesophageal reflux disease September 19, 2024 7:09am Anxiety and depression November 08, 2024 5:23pm Bloating November 08, 2024 5:2 3pm Chronic constipation November 08, 2024 5: 23pm Hyperlipidemia November 08, 2024 5:2 3pm Hypertension November 08, 2024 5:2 3pm Migraines November 08, 2024 5:2 3pm Encounter for well woman exa m with routine gynecological exam November 09, 2024 8:04am Post-menopausal bleeding November 09 8:04am Chief Complaint Admit Date Gastroesophageal reflux disease (GERD) F ebruary 2024 7:09am ABD PAIN October 04, 2024 1:03pm 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 SENT November 08, 2024 5: 23pm E ORDERS November 09, 2024 6:4 0am 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 POST MENOPAUSAL BLEEDING November 13 5:55pm EMB November 23, 2024 2:5 0pm Reason for Visit Admit Date Constipation September 19, 2024 7 :09am Bloating September 19, 2024 7 :09am Gastroesophageal reflux disease September 19, 2024 7:09am Anxiety and depression November 08, 2024 5:23pm Bloating November 08, 2024 5:2 3pm Chronic constipation November 08, 2024 5: 23pm Hyperlipidemia November 08, 2024 5:2 3pm Hypertension November 08, 2024 5:2 3pm Migraines November 08, 2024 5:2 3pm Encounter for well woman exa m with routine gynecological exam November 09, 2024 8:04am Post-menopausal bleeding November 09 8:04am Post-menopausal bleeding November 23 2:50pm GERD (gastroesophageal reflux disease) A pril 2024 5:22am Bloating November 29, 2024 5:2 2am Chief Complaint Admit Date Gastroesophageal reflux disease (GERD) F ebruary 2024 7:09am ABD PAIN October 04, 2024 1:03pm 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 SENT November 08, 2024 5: 23pm E ORDERS November 09, 2024 6:4 0am 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 POST MENOPAUSAL BLEEDING November 13 5:55pm EMB November 23, 2024 2:5 0pm 2 M FU December 13, 2024 8:4 0am Medication issues December 28, 2024 6:52a m Reason for Visit Admit Date Constipation September 19, 2024 7 :09am Bloating September 19, 2024 7 :09am Gastroesophageal reflux disease September 19, 2024 7:09am Anxiety and depression November 08, 2024 5:23pm Bloating November 08, 2024 5:2 3pm Chronic constipation November 08, 2024 5: 23pm Hyperlipidemia November 08, 2024 5:2 3pm Hypertension November 08, 2024 5:2 3pm Migraines November 08, 2024 5:2 3pm Encounter for well woman exa m with routine gynecological exam November 09, 2024 8:04am Post-menopausal bleeding November 09 8:04am Post-menopausal bleeding November 23 2:50pm GERD (gastroesophageal reflux disease) A pril 2024 5:22am Bloating November 29, 2024 5:2 2am Constipation December 13, 2024 8:4 0am Dysphagia December 13, 2024 8:4 0am GERD (gastroesophageal reflux disease) A pril 2024 8:40am Constipation December 28, 2024 6:52a m GERD (gastroesophageal reflux disease) M ay 2024 6:52am Abdominal pain December 28, 2024 6:52a m Chief Complaint Admit Date Gastroesophageal reflux disease (GERD) F ebruary 2024 7:09am ABD PAIN October 04, 2024 1:03pm 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 SENT November 08, 2024 5: 23pm E ORDERS November 09, 2024 6:4 0am 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 POST MENOPAUSAL BLEEDING November 13 5:55pm EMB November 23, 2024 2:5 0pm 2 M FU December 13, 2024 8:4 0am Medication issues December 28, 2024 6:52a m Consult D&C January 12, 2025 2:02p m Reason for Visit Admit Date Constipation September 19, 2024 7 :09am Bloating September 19, 2024 7 :09am Gastroesophageal reflux disease September 19, 2024 7:09am Anxiety and depression November 08, 2024 5:23pm Bloating November 08, 2024 5:2 3pm Chronic constipation November 08, 2024 5: 23pm Hyperlipidemia November 08, 2024 5:2 3pm Hypertension November 08, 2024 5:2 3pm Migraines November 08, 2024 5:2 3pm Encounter for well woman exrenetta hankins with routine gynecological exam November 09, 2024 8:04am Post-menopausal bleeding November 09 8:04am Post-menopausal bleeding November 23 2:50pm GERD (gastroesophageal reflux disease) A pril 2024 5:22am Bloating November 29, 2024 5:2 2am Constipation December 13, 2024 8:4 0am Dysphagia December 13, 2024 8:4 0am GERD (gastroesophageal reflux disease) A pril 2024 8:40am Constipation December 28, 2024 6:52a m Eructation December 28, 2024 6:52a m GERD (gastroesophageal reflux disease) M ay 2024 6:52am Abdominal pain December 28, 2024 6:52a m Post-menopausal bleeding January 12, 2025 2:02pm Additional Source Comments INFORMATION SOURCE (unrecogn ized section and content) DATE CREATED AUTHOR 09/05/2020 [facility] DATE CREATED AUTHOR AUTHOR'S ORGANIZ ATION 04/10/2022 [facility] DATE CREATED AUTHOR AUTHOR'S ORGANIZ ATION 07/02/2024 [facility] DATE CREATED AUTHOR AUTHOR'S ORGANIZ ATION 01/23/2025 [facility] Source Comments (unrecognize d section and content) In the event this informatio n is protected by the Federal Confidentiality of Alcohol and Drug Abuse Patient Records regulations: The Federal rules restrict any use of the information to criminally investigate or prosecute any alcohol or drug abuse patient.[facility] the event this information is protected by the Federal Confidentiality of Alcohol and Drug Abuse Patient Records regulations: The Federal rules restrict any use of the information to criminally investigate or prosecute any alcohol or drug abuse patient.[facility] the event this information is protected by the Federal Confidentiality of Alcohol and Drug Abuse Patient Records regulations: The Federal rules restrict any use of the information to criminally investigate or prosecute any alcohol or drug abuse patient.[facility] the event this information is protected by the Federal Confidentiality of Alcohol and Drug Abuse Patient Records regulations: The Federal rules restrict any use of the information to criminally investigate or prosecute any alcohol or drug abuse patient.[facility] the event this information is protected by the Federal Confidentiality of Alcohol and Drug Abuse Patient Records regulations: The Federal rules restrict any use of the information to criminally investigate or prosecute any alcohol or drug abuse patient.[facility] the event this information is protected by the Federal Confidentiality of Alcohol and Drug Abuse Patient Records regulations: The Federal rules restrict any use of the information to criminally investigate or prosecute any alcohol or drug abuse patient.[facility] the event this information is protected by the Federal Confidentiality of Alcohol and Drug Abuse Patient Records regulations: The Federal rules restrict any use of the information to criminally investigate or prosecute any alcohol or drug abuse patient.[facility] the event this information is protected by the Federal Confidentiality of Alcohol and Drug Abuse Patient Records regulations: The Federal rules restrict any use of the information to criminally investigate or prosecute any alcohol or drug abuse patient.[facility] the event this information is protected by the Federal Confidentiality of Alcohol and Drug Abuse Patient Records regulations: The Federal rules restrict any use of the information to criminally investigate or prosecute any alcohol or drug abuse patient.[facility] the event this information is protected by the Federal Confidentiality of Alcohol and Drug Abuse Patient Records regulations: The Federal rules restrict any use of the information to criminally investigate or prosecute any alcohol or drug abuse patient.[facility] the event this information is protected by the Federal Confidentiality of Alcohol and Drug Abuse Patient Records regulations: The Federal rules restrict any use of the information to criminally investigate or prosecute any alcohol or drug abuse patient.[facility] the event this information is protected by the Federal Confidentiality of Alcohol and Drug Abuse Patient Records regulations: The Federal rules restrict any use of the information to criminally investigate or prosecute any alcohol or drug abuse patient.[facility] the event this information is protected by the Federal Confidentiality of Alcohol and Drug Abuse Patient Records regulations: The Federal rules restrict any use of the information to criminally investigate or prosecute any alcohol or drug abuse patient.[facility] the event this information is protected by the Federal Confidentiality of Alcohol and Drug Abuse Patient Records regulations: The Federal rules restrict any use of the information to criminally investigate or prosecute any alcohol or drug abuse patient.[facility] the event this information is protected by the Federal Confidentiality of Alcohol and Drug Abuse Patient Records regulations: The Federal rules restrict any use of the information to criminally investigate or prosecute any alcohol or drug abuse patient.[facility]In the event this information is protected by the Federal Confidentiality of Alcohol and Drug Abuse Patient Records regulations: The Federal rules restrict any use of the information to criminally investigate or prosecute any alcohol or drug abuse patient.[facility] the event this information is protected by the Federal Confidentiality of Alcohol and Drug Abuse Patient Records regulations: The Federal rules restrict any use of the information to criminally investigate or prosecute any alcohol or drug abuse patient.[facility]In the event this information is protected by the Federal Confidentiality of Alcohol and Drug Abuse Patient Records regulations: The Federal rules restrict any use of the information to criminally investigate or prosecute any alcohol or drug abuse patient.[facility]In the event this information is protected by the Federal Confidentiality of Alcohol and Drug Abuse Patient Records regulations: The Federal rules restrict any use of the information to criminally investigate or prosecute any alcohol or drug abuse patient.[facility] HospitalIn the event this information is protected by the Federal Confidentiality of Alcohol and Drug Abuse Patient Records regulations: The Federal rules restrict any use of the information to criminally investigate or prosecute any alcohol or drug abuse patient.[facility] HospitalIn the event this information is protected by the Federal Confidentiality of Alcohol and Drug Abuse Patient Records regulations: The Federal rules restrict any use of the information to criminally investigate or prosecute any alcohol or drug abuse patient.[facility] HospitalIn the event this information is protected by the Federal Confidentiality of Alcohol and Drug Abuse Patient Records regulations: The Federal rules restrict any use of the information to criminally investigate or prosecute any alcohol or drug abuse patient.[facility] HospitalIn the event this information is protected by the Federal Confidentiality of Alcohol and Drug Abuse Patient Records regulations: The Federal rules restrict any use of the information to criminally investigate or prosecute any alcohol or drug abuse patient.[facility] HospitalIn the event this information is protected by the Federal Confidentiality of Alcohol and Drug Abuse Patient Records regulations: The Federal rules restrict any use of the information to criminally investigate or prosecute any alcohol or drug abuse patient.[facility] HospitalIn the event this information is protected by the Federal Confidentiality of Alcohol and Drug Abuse Patient Records regulations: The Federal rules restrict any use of the information to criminally investigate or prosecute any alcohol or drug abuse patient.[facility] Reason for Visit (unrecogniz ed section and content) Reason Comments Follow Up follow up -labs Reason Comments Depression Reason Comments Sinus Problem sinus pressure, drai nage, headache, sore throat, ear pain, cough x 6 days Reason Comments Follow Up c/o vomiting and rian sea this morning Reason Comments Consult RUQ Specialty Diagnoses / Procedures Referred By Contac t Referred To Contact General Surgery Diagnoses RUQ pain Procedures CONSULT TO GENERAL SURGERY OFFICE/OUTPATIENT [facility] 60-74 MINUTES Alejandrina Graham MD [address] [place] [address] Referral ID Status Reason Start Date Expiration Date V isits Requested Visits Authorized [id number] Closed PCP Requested Referral 12/15/2022 12/15/2023 1 1 Reason Onset Date Comments Refill Request 12/14/2022 Reason Comments Headache Reason Comments F/U 6 months Patient is being zenia ated for depression with Venlafaxine 37.5 mg daily. Has recently had some family stressors that is causing her not to sleep as well. She was given a script for Ativan which she had tried at night and does help her sleep. Questions if can have a refill of the ativan and questions if an increase in the venlafaxine would be appropriate. Cough seems to be related to smells such as perfumes and treats with albuterol. Using the albuterol 2-3 times a month. Albuterol doesn't seem to be effective unless she gets away from the smell and into fresh air. Headache off and on for about 2 weeks. States are very mild. Rectal Problem treating with senna stool softener and rectal care Reason Comments Medication Follow-up Reason Comments Recheck new medication Results discuss most recent lab results Reason Comments Refill Request Reason Comments weight issues weight gain, questio ns if has a thyroid nodulecomplains of fatigue off and on Reason Comments Rx Refills Hip Pain Reason Onset Date Comments Refill Request 06/25/2024 Care Teams (unrecognized sec tion and content) Manager Lean Relationship Specialty Start Date End Date Alejandrina Graham MD [address] [place], [place] [id number] PCP - General Internal Medicine 10/24/18 Manager Lean Relationship Specialty Start Date End Date Alejandrina Graham MD [address] [place], [place] [id number] PCP - General Internal Medicine 10/24/18 Manager Lean Relationship Specialty Start Date End Date Alejandrina Graham MD [address] [place], [place] [id number] PCP - General Internal Medicine 10/24/18 Manager Lean Relationship Specialty Start Date End Date Alejandrina Graham MD [address] [place] [address] PCP - General Internal Medicine 10/24/18 Manager Lean Relationship Specialty Start Date End Date Alejandrina Graham MD [address] [place] [address] PCP - General Internal Medicine 10/24/18 Manager Lean Relationship Specialty Start Date End Date Alejandrina Graham MD [address] [facility] [place] [address] PCP - General Internal Medicine 10/24/18 Manager Lean Relationship Specialty Start Date End Date Alejandrina Graham MD [address] [facility] [place] [address] PCP - General Internal Medicine 10/24/18 Manager Lean Relationship Specialty Start Date End Date Alejandrina Graham MD [address] [facility] [place] [address] PCP - General Internal Medicine 10/24/18 Manager Lean Relationship Specialty Start Date End Date Alejandrina Graham MD [address] [facility] [place] [address] PCP - General Internal Medicine 10/24/18 Manager Lean Relationship Specialty Start Date End Date Alejandrina Graham MD [address] [facility] [place] [address] PCP - General Internal Medicine 10/24/18 Manager Lean Relationship Specialty Start Date End Date Alejandrina Graham MD [address] [facility] [place] [address] PCP - General Internal Medicine 10/24/18 Manager Lean Relationship Specialty Start Date End Date Alejandrina Graham MD [address] [place] [address] PCP - General Internal Medicine 10/24/18 Manager Lean Relationship Specialty Start Date End Date Alejandrina Graham MD [address] [place] [address] PCP - General Internal Medicine 10/24/18 Manager Lean Relationship Specialty Start Date End Date Alejandrina Graham MD [address] [place] [address] PCP - General Internal Medicine 10/24/18 Manager Lean Relationship Specialty Start Date End Date Alejandrina Graham MD [address] [place] [address] PCP - General Internal Medicine 10/24/18 Manager Lean Relationship Specialty Start Date End Date Alejandrina Graham MD [address] [place] [address] PCP - General Internal Medicine 10/24/18 Manager Lean Relationship Specialty Start Date End Date Alejandrina Graham MD [address] [place] [address] PCP - General Internal Medicine 10/24/18 Manager Lean Relationship Specialty Start Date End Date Alejandrina Graham MD [address] [place] [address] PCP - General Internal Medicine 10/24/18 Manager Lean Relationship Specialty Start Date End Date Alejandrina Graham MD [address] [place] [address] PCP - General Internal Medicine 10/24/18 Manager Lean Relationship Specialty Start Date End Date Alejandrina Graham MD [address] [place] [address] PCP - General Internal Medicine 10/24/18 Manager Lean Relationship Specialty Start Date End Date Alejandrina Graham MD [address] [place] [address] PCP - General Internal Medicine 10/24/18 Manager Lean Relationship Specialty Start Date End Date Alejandrina Graham MD [address] [place] [address] PCP - General Internal Medicine 10/24/18 Team Status: Active Member Role Status Dates Dr. Willie Adams MD Primary Care Provider Active Team Status: Inactive Member Role Status Dates Dr. Alejandrina Graham MD Referring Provider Active Start: September 19, 2024 End: September 19, 2024 LETICIA Ham Attending Provider Active Start: September 19, 2024 End: September 19, 2024 Team Status: Inactive Member Role Status Dates LETICIA Ham Attending Provider Active Start: October 04, 2024 End: October 04, 2024 LETICIA Ham Referring Provider Active Start: October 04, 2024 End: October 04, 2024 Dr. Willie Adasm MD Primary Care Provider Active Start: October 04, 2024 End: October 04, 2024 Team Status: Inactive Member Role Status Dates Dr. Alejandrina Graham MD Referring Provider Active Start: November 08, 2024 End: November 08, 2024 Dr. Willie Adams MD Primary Care Provider Active Start: November 08, 2024 End: November 08, 2024 Dr. Willie Adams MD Attending Provider Active Start: November 08, 2024 End: November 08, 2024 Team Status: Inactive Member Role Status Dates Dr. Willie Adams MD Primary Care Provider Active Start: November 09, 2024 End: November 09, 2024 Dr. Willie Adams MD Attending Provider Active Start: November 09, 2024 End: November 09, 2024 Dr. Willie Adams MD Referring Provider Active Start: November 09, 2024 End: November 09, 2024 Team Status: Inactive Member Role Status Dates Dr. Alejandrina Graham MD Referring Provider Active Start: November 09, 2024 End: November 09, 2024 CANDICE TangC Attending Provider Active Start: November 09, 2024 End: November 09, 2024 Dr. Willie Adams MD Primary Care Provider Active Start: November 09, 2024 End: November 09, 2024 Team Status: Active Member Role Status Dates Dr. Willie Adams MD Primary Care Provider Active Start: November 13, 2024 NIKOLE Tang Attending Provider Active Start: November 13, 2024 Team Status: Inactive Member Role Status Dates Dr. Willie Adams MD Primary Care Provider Active Start: November 13, 2024 End: November 13, 2024 NIKOLE Tang Attending Provider Active Start: November 13, 2024 End: November 13, 2024 Team Status: Inactive Member Role Status Dates Dr. Willie Adams MD Primary Care Provider Active Start: November 23, 2024 End: November 23, 2024 Dr. Willie Adams MD Referring Provider Active Start: November 23, 2024 End: November 23, 2024 Sharon Whiting NP, PHARMACY RESIDENT-C Attending Provider Active Start: November 23, 2024 End: November 23, 2024 Team Status: Active Member Role Status Dates Dr. Willie Adams MD Primary Care Provider Active Start: November 23, 2024 Sharon Whiting PHARMACY RESIDENT, PHARMACY RESIDENT-C Attending Provider Active Start: November 23, 2024 Sharon Whiting NP, PHARMACY RESIDENT-C Referring Provider Active Start: November 23, 2024 Team Status: Inactive Member Role Status Dates Dr. Willie Adams MD Primary Care Provider Active Start: November 29, 2024 End: November 29, 2024 Dr. Willie Adams MD Referring Provider Active Start: November 29, 2024 End: November 29, 2024 Dr. Adria Cisse DO Attending Provider Active Start: November 29, 2024 End: November 29, 2024 Team Status: Active Member Role Status Dates Dr. Willie Adams MD Primary Care Provider Active Start: November 29, 2024 Dr. Willie Adams MD Referring Provider Active Start: November 29, 2024 Dr. Adria Cisse DO Attending Provider Active Start: November 29, 2024 Dr. Adria Cisse DO Other Provider Active St art: November 29, 2024 Team Status: Inactive Member Role Status Dates Dr. Willie Adams MD Primary Care Provider Active Start: November 23, 2024 End: November 23, 2024 Sharon Whiting PHARMACY RESIDENT, PHARMACY RESIDENT-C Attending Provider Active Start: November 23, 2024 End: November 23, 2024 Sharon Whiting PHARMACY RESIDENT, PHARMACY RESIDENT-C Referring Provider Active Start: November 23, 2024 End: November 23, 2024 Team Status: Inactive Member Role Status Dates LETICIA Ham Attending Provider Active Start: December 13, 2024 End: December 13, 2024 Team Status: Inactive Member Role Status Dates LETICIA Ham Attending Provider Active Start: December 28, 2024 End: December 28, 2024 Team Status: Inactive Member Role Status Dates Dr. Gayatri Weinstein MD Attending Provider Active Start: January 12, 2025 End: January 12, 2025 Goals (unrecognized section and content) Goals may be documented in a n alternate sectionGoals may be documented in an alternate section FOR RECORDS PERTAINING TO PATIENTS WHO ARE OR HAVE BEEN ENROLLED IN A CHEMICAL DEPENDENCY/SUBSTANCEABUSE PROGRAM, SOME INFORMATION MAY BE OMITTED. This clinical summary was aggregated from multiple sources. Caution should be exercised in using it in the provision of clinical care. This summary normalizes information from multiple sources, and as a consequence, information in this document may materially change the coding, format and clinical context of patient data. In addition, data may be omitted in some cases. CLINICAL DECISIONS SHOULD BE BASED ON THE PRIMARY CLINICAL RECORDS. [employer] provides no warranty or guarantee of the accuracy or completeness of information in this document.
== END | disposition home or self-care (01) ==
LOC: CT 06:17
PROVIDERS: PCP Internal Medicine; Referring Provider Student in an Organized Health Care Education/Training Program; Visit Provider Student in an Organized Health Care Education/Training Program
DX: K21.9 Gastro-esophageal reflux disease without esophagitis (principal); K59.00 Constipation, unspecified; R10.9 Unspecified abdominal pain
CPT/HCPCS: 74177; Q9967

== ENCOUNTER 2025-01-30 12:07 | Day surgery (SDC) | payer OTHER, SELFPAY ==
[2025-01-17 18:01] LABS: Hematocrit 39.9 % (37-47); Hemoglobin 13.5 g/dL (12.0-15.0); Mean Corp Hgb Conc 33.8 g/dL (32-36); Mean Corpuscular Hgb 30.7 pg (27.0-32.0); Mean Corpuscular Volume 90.7 fL (81-99); Mean Platelet Vol. 10.8 fl (6.2-12.0); Platelet Count 241 K/mm3 (150-450); White Blood Count 5.3 K/mm3 (4.4-11.0)
[2025-01-17 18:22] LABS: Anion Gap 11 (5-15); BUN 13 mg/dL (4-19); BUN/Creat Ratio 11.7 RATIO (10-20); Carbon Dioxide 24.1 mmol/L (21.0-32.0); Chloride 104 mmol/L (98-108); Creatinine, Serum 1.15 mg/dL (0.70-1.20); EST Glomerular Filtration Rate 56 (>60); Glucose 97 mg/dL (70-99); Potassium 4.1 mmol/L (3.3-5.1); Sodium Level 139 mmol/L (133-145)
[2025-01-30] VITALS (9 sets, daily range): BP systolic 102–112; BP diastolic 56–67; PULSE 49–59; RESP 16–18; TEMP 36.1–36.7; O2SAT 97–99; BMI 30.7
[2025-01-30] MEDS: Lactated Ringers 1,000 ML 15 ML IV (12:49)
[2025-01-30] MEDS: HYDROcodone Bitartrate/Apap 5/325 Tablet PO (16:19)
== END 2025-01-30 17:00 | disposition home or self-care (01) ==
LOC: SDC 12:07 → AC 12:08
PROVIDERS: PCP Internal Medicine; Referring Provider Obstetrics & Gynecology; Visit Provider Obstetrics & Gynecology
PROC: 0UDB8ZZ Extraction of Endometrium, Via Natural or Artificial Opening Endoscopic (ICD-10-PCS; CPT 58558; principal; 2025-01-30 13:35)
DX: N95.0 Postmenopausal bleeding (principal); F32.A Depression, unspecified; F41.9 Anxiety disorder, unspecified; Z87.891 Personal history of nicotine dependence; Z79.899 Other long term (current) drug therapy
CPT/HCPCS: 58558; 00952; 36415; 80048; 85027; 86850; 86900; 86901; 88305; 93005; J2405

== ENCOUNTER → 2025-02-13 | Outpatient (CLI) | payer OTHER, SELFPAY ==
--- NOTE | 2025-02-13 16:45 | BI_ITS ---
EXAM: SCRN MAMM (CAD)W/MISTY BILAT DATE: 02/13/2025 CLINICAL HISTORY: F, Age 59 y/o , SCREENING MAMMOGRAM TECHNIQUE: SCRN MAMM (CAD)W/MISTY BILAT COMPARISON: Prior exam(s) dated 12/29/2023, 07/21/2021, 11/23/2018. FINDINGS: TISSUE DENSITY: The breasts are heterogeneously dense, which may obscure small masses. The mammogram demonstrates that the patient has dense breasts. Supplemental screening with whole breast ultrasound or MRI may be considered for further evaluation. Bilateral Breast Mammographic Findings: No significant masses, calcifications or other abnormalities are identified. BI/SCRN MAMM (CAD)W/MISTY BILAT IMPRESSION: There is no mammographic evidence of malignancy. OVERALL FINAL ASSESSMENT BI-RADS 1: NEGATIVE. RECOMMEND ANNUAL MAMMOGRAPHIC SCREENING. RECOMMENDATION: Routine annual follow-up in 1 Year A letter with findings and recommendations will be mailed to the patient. Reading Location: [id number]
--- OUTSIDE RECORDS SUMMARY | 2025-02-14 07:09 | XMS RPT_ITS | CCD ---
Author Organization [facility] Providers Care Bottle Capping Machine Operator Name Role Phone MANDO COON DO Admitting Unavailable DIDMANDO VILLAFANA DO Attending Unavailable MANDO COON DO Primary Care Unavailable DOMINGA, DR LUH Osei Admitting Unavaila ble DOMINGA, DR LUH Osei Attending Unavaila ble DOMINGA, DR LUH Osei Primary Care Unavaila ble Seth BARRIENTOS, Alejandrina Primary Care Provider Alejandrina Graham MD Primary Care Provider Seth BARRIENTOS, Alejandrina Primary Care Provider Seth BARRIENTOS, Alejandrina Primary Care Provider JEANMARIE, LAUREL Referring Unavailable GANTA, ALEJANDRINA Primary [...] Referring Unavailable GANTA, ALEJANDRINA Primary Care Unavailable Ganta Dr. Alejandrina BARRIENTOS Referring Provider Alma Craig Attending Provider Alma Craig Referring Provider Angie BARRIENTOS, Dr. Tapia Primary Care Provider Angie BARRIENTOS, Dr. Tapia Attending Provider [phone] Dr. Willie Adams MD Referring Provider [phone] Naveed 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 INSTRUCTOR-C, Fadia Attending Provider Henok 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 INSTRUCTOR-C, Sharon Attending Provider Henok 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 INSTRUCTOR-C, Sharon Referring Provider Betito CHAVEZ, Dr. Covington Attending Provider Betito CHAVEZ, Dr. Covington Other Provider Corinna BARRIENTOS, Dr. Mendieta Attending Provider Alma Craig Attending Provider Seth BARRIENTOS, Dr. Wilcox Referring Provider Alec BARRIENTOS, Dr. Kauffman Attending Provider Corinna BARRIENTOS, Dr. Mendieta Referring Provider [phone] Corinna BARRIENTOS, Dr. Mendieta Other Provider [phone] Angie BARRIENTOS, Dr. Tapia Primary Care Provider Alma Craig Attending Provider Alma Craig Referring Provider Alma Melton Attending Unavailable Gayatri Weinstein Consulting Unavailable Oleghe, Efewongbe Primary Care Unavailable Gayatri Weinstein Referring Unavailable Gayatri Weinstein Attending Unavailable Oleghe, Efewongbe Primary Care Unavailable Oleghe, Efewongbe Referring Unavailable Robbighe, Efewongbe Attending Unavailable Gayatri Weinstein Attending Unavailable Sirisha Mcginnis Attending Unavailable Oleghe, Efewongbe Primary Care Unavailable Gayatri Weinstein Referring Unavailable Jamari Michael Attending Unavailable Adria Cisse Consulting Unavailable Oleghe, Efewongbe Primary Care Unavailable Oleghe, Efewongbe Referring Unavailable Adria Cisse Attending Unavailable Oleghe, Efewongbe Primary Care Unavailable Alma Melton Referring Unavailable Alma Melton Attending Unavailable Oleghe, Efewongbe Primary Care Unavailable Fadia Lucio Attending Unavailable Oleghe, Efewongbe Primary Care Unavailable Henok 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 INSTRUCTOR, Sharon Referring Unavailable Kennett 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 INSTRUCTOR, Sharon Attending Unavailable Oleghe, Efewongbe Primary Care Unavailable Ganta, Alejandrina Referring Unavailable Oleghe, Efewongbe Attending Unavailable Oleghe, Efewongbe Primary Care Unavailable Alma Melton Referring Unavailable Alma Melton Attending Unavailable Oleghe, Efewongbe Referring Unavailable Oleghe, Efewongbe Primary Care Unavailable Adria Cisse Attending Unavailable Oleghe, Efewongbe Primary Care Unavailable Gayatri Weinstein Referring Unavailable Gayatri Weinstein Attending Unavailable Ganta, Alejandrina Primary Care Unavailable Assessment, Health Risk Referring Unavaila ble Assessment, Health Risk Attending Unavaila ble Oleghe, Efewongbe Referring Unavailable Oleghe, Efewongbe Primary Care Unavailable Gayatri Weinstein Attending Unavailable Ganta, Alejandrina Referring Unavailable Alma Melton Attending Unavailable Oleghe, Efewongbe Primary Care Unavailable Ganta, Alejandrina Referring Unavailable Fadia Lucio Attending Unavailable Oleghe, Efewongbe Primary Care Unavailable Oleghe, Efewongbe Referring Unavailable Sharon Whiting NP Attending Unavailable Alma Melton Attending Unavailable Allergies Allergy Classification Reported Allergen(s) Allergy Type Date of Onset Reaction(s) Facility (20 sources) Seasonal allergy; Translations: [SEASONAL ALLERGIES] Allergy to substance 8 Other: See Comments [facility] (14 sources) Perfumes; Translations: [PERFUMES] Allergy to substance 3 Shortness of Breath [facility] Work Phone: (1 source) perfume Drug allergy (disorder) 5 [facility] Repository Medications Current Medications Medication Drug Class(es) Dates Sig (Normalized) Sig (Original) [id number] actuat albuterol 0.09 mg/actuat metered dose [...] above: Take 1 tablet by nimo th twice daily for 7 days. bismuth subsalicylate (5 sources) Bismuth take 1 tablet by mouth twice daily bismuth subsalicylate (DIGESTIVE RELIEF ORAL) Take 1 tablet by mouth two times a day. Active W-I3-fnjk-npu-kokro-jt ng-herb (IMMUNE SUPPORT, VIT C,D,ZINC,) 180 mg-10 mcg- 5.5 mg-150 mg cap (5 sources) take 2 capsules by mouth once daily U-G5-ekvf-sneha-biofl- ging-herb (IMMUNE SUPPORT, VIT C,D,ZINC,) 180 mg-10 [...] above: Take 1 tablet by nimo th once daily. as needed for allergy symptoms [...] at bedtime. famotidine 40 mg oral tablet (11 sources) Histamine-2 Receptor Antagonist Start: take 1 tablet by mouth twice daily Famotidine 40 mg tablet Active 40 mg PO TWICE A DAY 60 January 23, 2025 6:53am eructation Start: 12-28-2024 End: 01-23-2025 take 1 tablet by mouth once daily as needed Famotidine 40 mg tablet Discontinued 40 mg PO daily as needed for eructation 30 January 18, 2025 5:24pm January 23, 2025 6:53am folic acid/multivit-min/lutein (CENTRUM SILVER ORAL) (1 source) End: 06-09-2022 folic acid/multivit-min/lutein (CENTRUM SILVER ORAL) Take by mouth. 0 06/09/2022 Discontinued Comment on above: Take by mouth. ibuprofen 600 mg oral tablet (9 sources) Nonsteroidal Anti-inflammat ory Drug Start: 02-05-2020 take 1 tablet by mouth every six hours as needed for pain Ibuprofen 600 MG tablet Active 600 mg PO EVERY 6 HOURS NEEDED as needed for Pain Score 1-10/10 20 0 February 05, 2020 12:00am Lactobacillus rhamnosus GG (CULTURELLE ORAL) (5 sources) take 1 capsule by mouth once daily Lactobacillus rhamnosus GG (CULTURELLE ORAL) Take 1 capsule by mouth once daily. Active Magnesium (3 sources) Start: 01-17-2025 take 1 tablet by mouth at bedtime Magnesium 250 mg tablet Active 250 mg PO AT BEDTIME January 17, 2025 12:00am mecobalamin (9 sources) Start: 09-08-2024 take 1 tablet by mouth once daily Mecobalamin (Vitamin B12) 500 mcg tablet,chewable Active 500 ug PO .QD September 08, 2024 1:00am Start: 09-08-2024 Mecobalamin (V itamin B12) 500 mcg tablet,chewable Active ug PO September 08, 2024 1:00am miSOPROStol 0.2 mg oral tablet (4 sources) Prostaglandin E1 Analog Start: 01-12-2025 Misopr ostol (Cytotec) 200 mcg tablet Active 200 ug PO .complex 2 January 12, 2025 12:00am take the night before and two hours prior to the procedure Multivitamins-Mineral s-Lutein (MULTIVITAMIN 50 PLUS) tab (13 sources) Multivitamins-Mi neral s-Lutein (MULTIVITAMIN 50 PLUS) tab Take 1 tablet by mouth once daily. Active Multivitamins-Mi nerals-Lutein (MULTIVITAMIN 50 PLUS) tab Take 1 tablet by mouth once daily. 0 Active Comment on above: Take 1 tablet by nimo once daily. Ym-Bcx-Bnnbl-Calcium Carb-K1 (Women's 50 Plus Multivitamin) 400 mcg-500 mg calcium-20 mcg tablet (9 sources) Start: 11-08-2024 Ln-Jnb-Ugacd-Calcium Carb-K1 (Women's 50 Plus Multivitamin) 400 mcg-500 mg calcium-20 mcg tablet Active 1 {tbl} PO .QD November 08, 2024 12:00am Start: 11-08-2024 Ou-Ykc-Sshxd-C alcium Carb-K1 (Women's 50 Plus Multivitamin) 400 mcg-500 mg calcium-20 mcg tablet Active {tbl} PO November 08, 2024 12:00am 24 hr propranolol hydrochloride 60 mg extended release oral capsule (20 sources) beta-Adrenergic Humberto Start: 09-08-2024 End: 01-31-2025 take 1 capsule by mouth every twenty-four hours at bedtime Propranolol 60 mg capsule,extended release 24 hr Active 60 mg PO AT BEDTIME 60 1 January 31, 2025 10:32pm Start: 09-08-2024 take 1 capsule by [facility] once daily Propranolol 60 mg capsule,extended release 24 hr Active 60 mg PO daily September 08, 2024 1:00am Start: 09-22-2023 End: 01-17-2024 take 1 capsule by mouth once daily propranolol ER (INDERAL LA) 60 mg 24 hr capsule take 1 capsule by mouth every day 90 capsule 3 01/17/2024 Active Comment on above: Take 1 capsule by [facility] once daily. ZOOGY-VQFVKZPTR-FCKA ESIUM MISC (5 sources) SENNA-BISACODYL- MAGN ESIUM MISC 1 tablet as needed. Active sennosides, chcf 8.6 mg oral capsule (18 sources) Start: 09-08-19 End: 11-09-19 take 1 capsule by mouth once daily as needed for constipation Sennosides (Senna) 8.6 mg capsule Active 8.6 mg PO daily as needed for constipation November 08, 2024 5:43pm SUMAtriptan 25 mg oral tablet (16 sources) Serotonin-1b and Serotonin-1d Receptor Agonist Start: [...] mg tablet Discontinued 0 PO .COMPLEX 14 0 November 08, 2024 12:00am November 29, 2024 [...] release 24hr Discontinued 75 mg PO daily 90 1 November 08, 2024 6:17pm November 29, 2024 [...] Comment on above: Take 1 capsule by [facility] once daily. vitamin b12 1 mg/ml injectable solution (1 source) Vitamin B12 Start: 2019 End: 2021 inject 1 mL by intramuscular injection every month cyanocobalamin 1,000 mcg/mL Inject 1 mL intramuscularly once every month. as directed 1 Vial 03/01/2020 06/09/2022 Discontinued Comment on above: Inject 1 mL intramus cularly once every month. as directed Vonoprazan (Voquezna) 10 mg tablet (5 sources) Start: 2024 take 1 tablet by mouth once daily Vonoprazan (Voquezna) 10 mg tablet Active 10 mg PO daily December 13, 2024 12:00am Start: 12-13-2024 [facility] Vonoprazan (Voquezna) 10 mg tablet Active 10 mg PO daily December 13, 2024 12:00am Completed/Discontinued Medications Medication Drug Class(es) Dates Sig (Normalized) Sig (Original) M-X8-Tiqo-Sneha-Biof l-Ging-Herb (Immune Support (Vit C,D,Zinc)) 180 mg-10 mcg- 5.5 mg-150 mg capsule (9 sources) Start: 11-08-2024 End: 01-12-2025 take 1 capsule by mouth once U-X5-Usom-Sneha-Biofl -Ging-Herb (Immune Support (Vit C,D,Zinc)) 180 mg-10 mcg- 5.5 mg-150 mg capsule Discontinued NMA PO November 08, 2024 12:00am January 12, 2025 2:10pm Start: 11-08-2024 take 1 capsule by [facility] once Y-L7-Gfmt-Qpn-Egzjo-Kxah-Herb (Immune Support (Vit C,D,Zinc)) 180 mg-10 mcg- [...] Active doxycycline hyclate 100 mg oral capsule (9 sources) Tetracycline-class Drug Start: 02-15-2023 End: 11-08-2024 take 1 capsule by mouth twice daily Doxycycline Hyclate 100 mg capsule Discontinued 100 mg PO TWICE A DAY 14 7 0 February 15, 2023 12:00am November 08, 2024 5:32pm lactobacillus rhamnosus gg [id number] unt oral capsule (9 sources) Start: 09-08-2024 End: 11-08-2024 take 10 [...] above: Take 1 tablet by nimo th three times daily as needed for up to 30 days. Take 1 tablet by nimo th three times a day as needed for up to 30 days. Take 0.5 mg by mouth . metoclopramide 5 mg oral tablet (9 sources) Dopamine-2 Receptor Antagonist Start: 02-15-2023 End: 11-08-2024 take 1 tablet by mouth every eight hours as needed for nausea and vomiting Metoclopramide Hcl (Reglan) 5 mg tablet Discontinued 5 mg PO EVERY 8 HOURS NEEDED as needed for nausea and vomiting 20 7 0 February 15, 2023 12:00am November 08, 2024 5:33pm [...] pantoprazole 40 mg delayed release oral tablet (18 sources) Proton Pump Inhibitor Start: 12-13-2024 End: 12-13-2024 take 1 tablet by mouth once daily Pantoprazole 40 mg tablet,delayed release (DR/EC) Discontinued 40 mg PO daily 30 2 December 13, 2024 12:00am December 13, 2024 8:16am Start: 06-09-2022 End: 06-23-2023 take 1 tablet by mouth once daily pantoprazole DR (PROTONIX) 40 mg tablet Indications: Gastroesophageal reflux disease without esophagitis Take 1 tablet by mouth once daily. 90 tablet 1 06/09/2022 06/23/2023 Discontinued Comment on above: Take 1 tablet by nimo th once daily. sennosides (SENNA-GEN ORAL) (2 sources) End: 09-22-2023 take 2 tablets by mouth once daily sennosides (SENNA-GEN ORAL) Take 2 tablets by mouth once daily. 0 09/22/2023 Discontinued take 2 tablets by mouth once salo ly sennosides (SENNA-GEN ORAL) Take 2 tablets by mouth once daily. 0 Active Comment on above: Take 2 tablets by [facility] once daily. 1 ml triamcinolone acetonide 40 mg/ml injection (2 sources) Corticosteroid Start: 06-26-2024 End: 06-26-2024 triamcinolone acetonide 40 mg injection (KeNALog 40) turmeric,curcumin,calvin ,vitamin (9 sources) Start: 11-08-2024 End: 11-24-2024 turmeric,curcumin,ginge r,vitamin Discontinued PO November 08, 2024 12:00am November 24, 2024 1:33pm Start: 11-08-2024 turmeric,curcu min,calvin,vitamin Active PO November 08, 2024 12:00am Problems Active Problems Problem Classification Problem Date Documented Da te Episodic/Chronic Abdominal pain (18 sources) Periumbilical pain; Translations: [Right upper quadrant [...] 09-22-2023 06-23-2023 Chronic Diabetes mellitus without complication (9 sources) Hyperglycemia; Translations: [Hyperglycemia, unspecified] 11-10-2024 Episodic Disorders of lipid metabolism (20 sources) Hyperlipidemia; Translations: [Hyperlipidemia, unspecified] Onset: 12-15-2022 Chronic Esophageal disorders (20 sources) Gastro-esophageal reflux disease without esophagitis; Translations: [Gastroesophageal reflux disease without esophagitis] Onset: 03-25-2022 Chronic Essential hypertension (20 sources) Essential hypertension; Translations: [Essential (primary) hypertension] Onset: 11-09-2024 09-22-2023 Chronic Comment on above: ON MEDS Headache; including migraine (19 sources) Migraine; Translations: [Migraine, unspecified, not intractable, without status migrainosus] Onset: 11-09-2024 11-08-2024 Chronic Headache; including migraine (9 sources) Headache; Translations: [Headache] 02-23-2023 Episodic Immunizations and screening for infectious disease (3 sources) Viral screening status; Translations: [Encounter for screening for other viral diseases] Episodic Malaise and fatigue (1 source) Malaise; Translations: [Other malaise] Episodic Menopausal disorders (20 sources) Postmenopausal bleeding; Translations: [Postmenopausal bleeding] Onset: 02-09-2025 11-09-2024 Chronic Comment on above: s/p ablation [...] pain, unspecified] Onset: 03-25-2022 Episodic Nutritional deficiencies (8 sources) Cobalamin deficiency; Translations: [Deficiency of other [...] right hip] 06-26-2024 Episodic Other gastrointestinal disorders (11 sources) Burping; Translations: [Eructation] Episodic Other gastrointestinal disorders (20 sources) Constipation; Translations: [Constipation, unspecified] Episodic Other gastrointestinal disorders (20 sources) Abdominal bloating; Translations: [Abdominal distension (gaseous)] Episodic Other gastrointestinal disorders (18 sources) Chronic constipation; Translations: [Other constipation] 11-08-2024 Episodic Other gastrointestinal disorders (10 sources) Dysphagia; Translations: [Dysphagia, unspecified] 12-13-2024 Episodic [...] Translations: [Abnormal weight gain] 04-05-2024 Episodic Other skin disorders (1 source) Eruption; Translations: [Rash and other nonspecific skin eruption] Episodic Other upper respiratory infections (1 source) Bacterial sinusitis; Translations: [Chronic sinusitis, unspecified] Chronic Skin and subcutaneous tissue infections (9 sources) Cellulitis; Translations: [Cellulitis, unspecified] 02-23-2023 Episodic Thyroid disorders (3 sources) Goiter; Translations: [Nontoxic goiter, unspecified] Onset: 04-05-2024 04-05-2024 Chronic Past or Other Problems Problem Classification Problem Date Documented Da te Episodic/Chronic Blindness and vision defects (2 sources) Visual disturbance; Translations: [Unspecified visual disturbance] Onset: 09-22-2023 09-22-2023 Episodic Other screening for suspected conditions (not mental disorders or infectious disease) (7 sources) Patient encounter status; Translations: [Encounter for screening for lipoid disorders] Onset: 11-09-2024 Episodic Results Test Name Value Interpretation Reference Range Facility Outside Production Inspector Office Visit Reporton 02-12-2025 Outside Production Inspector Office Visit Report [facility] [address], [address] [place] [address] OFFICE VISIT Date of Service: 02/12/25 MR#: [id number] Acct: [id number] Name: POLINA THOMSON Rep #: [id number] : 1965 Provider: Dr. Gayatri sol MD Age/Sex: 59/F Location: [facility] Status: Signed Intake Vital Signs 01/12/25 14:06 01/30/25 12:39 02/12/25 07:59 02/12/25 08:01 Height 5 ft 7 in 5 ft 7 in 5 ft 7 in 5 ft 7 in Weight: 200 lb 4 oz BMI 31.4 BP 123/71 H Intake Visit Reasons: 2 wk D C hysteroscopy Finance Officer Required: No Is patient in pain?: No Feel stressed/tense/nervous /anxious/difficulty sleeping: not at all Allergies perfume Allergy (Verified 02/12/25 07:59) throat swelling Medications ???Medication ???Instructions ???Recorded ???Confirmed ???Type ibuprofen 600 mg tablet 600 mg PO Q6H PRN PRN Pain Score 0 02/05/20 02/12/25 Rx 1-05/25 #20 tabs mecobalamin (vitamin B12) 500 mcg 500 mcg PO .QD 09/08/24 02/12/25 History chewable tablet yotjgrqx-vly-oasqy ac 400 1 tab PO .QD 11/08/24 02/12/25 His tory mcg-calcium carb 500 mg-vit K1 20 mcg tablet (Women's 50 Plus Multivitamin) sennosides 8.6 mg capsule (senna) 8.6 mg PO QDAY PRN constipation 0 11/08/24 02/12/25 History sumatriptan succinate 25 mg tablet See Rx Instructions PO .COMPLEX 11/29/24 02/12/25 History (Imitrex) PRN migraine headache venlafaxine 75 mg capsule,extended 75 mg PO QHS 11/29/24 02/12/25 H istory release 24 hr vonoprazan 10 mg tablet (Voquezna) 10 mg PO QDAY #30 tabs 12/13/24 02/12/25 Rx misoprostol 200 mcg tablet 200 mcg PO .complex #2 tabs 02/12/25 Rx (Cytotec) magnesium 250 mg tablet 250 mg PO QHS 01/17/25 02/12/25 Hi story famotidine 40 mg tablet 40 mg PO BID eructation #60 tabs 0 01/23/25 02/12/25 Rx propranolol 60 mg capsule,24 60 mg PO QHS #60 caps 01/31/25 Rx hr,extended release Patient : No : No [facility] Medical History Bite from insect Leg cramps Wears glasses Depression Anxiety Fatty liver Injury [...] Asthma Anemia Seasonal allergies Surgical History (Updated 02/12/25 @ 08:00 by Sharon Yoo) History of hysteroscopy H/O dilation and curettage H/O lithotripsy H/O prior ablation treatment History [...] 3 current occupational status: employed current occupation: [employer] current occupational exposures/hazards: No pets [...] you feel safe at home: Yes HPI 2 wk D C hysteroscopy Details: POLINA THOMSON is a 59 year old who presents for posto pvisit doing well no fevers or discharge. path still pending History 3 Elective abortions Hx Para 3 Spontaneous abortions Hx # Term Pregnancies Ectopic pregnancies Hx # Pregnancies Multiple births # of living c (more content not included)... Normal [facility] Discharge Instructionon 01-14 Discharge Instruction [facility] Medical Records Department [address] [place] [address] Instructions for Home/Discharge Instructions 01/30/25 1635 MR#: [id number] Acct: [id number] Name: POLINA THOMSON Rep #: [id number] : 1965 59 From: Gayatri Weinstein MD PCP: Dr. Willie Adams MD Status:REG [facility] Discharge Instructions Diet Discharge Diet: No restrictions DC O2, CPAP, BIPAP needs Home O2 Discharge instructions: No Dressing / Incision Discharge Activity: Return to Normal Activity, May Shower and May Take a Tub Bath (after 1 week) May resume sexual activity in: 1-2 weeks Weight Bearing Status: Weight bearing as tolerated Lifting Restrictions: none Dressing / Incision Call your doctor if you observe: Fever of 101 or Higher, Using more than 1 pad per hour, Shortness of breath and Uncontrolled pain Follow Up Care Please Follow Up With: Gayatri Weinstein MD When: Call [phone] to schedule appointment. Test Results: Test results from this visit will be discussed in further detail at your follow-up appointment, if applicable. Discharge Plan Admission Attending Provider: Gayatri Weinstein Primary Care Provider: Willie Adams Instructions Print Language: Chadian Discharge Orders/Prescriptions Prescriptions: No Action Women's 50 Plus Multivitamin 400 mcg-500 mg calcium-20 mcg tablet 1 tab PO .QD Voquezna 10 mg tablet 10 mg PO QDAY Qty: 30 2RF misoprostol [Cytotec] 200 mcg tablet 200 mcg PO .complex Qty: 2 1RF Rx Instructions: take the night before and two hours prior to the procedure ibuprofen 600 MG tablet 600 mg PO Q6H PRN PRN (Reason: Pain Score 1-10/10) Qty: 20 0RF venlafaxine 75 mg capsule,extended release 24hr 75 mg PO QHS sumatriptan succinate [Imitrex] 25 mg tablet See Rx Instructions PO .COMPLEX PRN (Reason: migraine headache) Rx Instructions: take 1 tab at onset of headache; if no relief may repeat 1 tab after at least 2 hrs; max = 4 tabs/24 hr orally PRN; magnesium 250 mg tablet 250 mg PO QHS propranolol 60 mg capsule,extended release 24 hr 60 mg PO QHS mecobalamin (vitamin B12) 500 mcg tablet,chewable 500 mcg PO .QD senna 8.6 mg capsule 8.6 mg PO QDAY PRN (Reason: constipation) famotidine 40 mg tablet 40 mg PO BID Qty: 60 1RF Disposition Disposition (needs filled in before D/C Order can be placed): Home, Self Care 01/30/25 1635 Gayatri Weinstein MD CC: Dr. Willie Adams MD Signed [facility] MR/POSTOP.ANE 01-30-2025 MR/POSTOP.[facility] Medical Records Department [address] [facility] [place] [address] Anesthesia Postop Eval I 01/30/251536 MR#: [id number] Acct: [id number] Name: POLINA THOMSON Rep #: [id number] : 1965 59 From: Lakhwinder Perez CRNA PCP: Dr. Willie Adams MD Status:REG SD Y Race: C Location: [place] [address] Anesthesia: Postop Eval I Current Vital Signs Temperature: 97.2 F Pulse Rate: 54 Blood Pressure: 108/56 Respiratory Rate: 16 Pulse Ox: 97 Assessment Airway patent: Yes Spontaneous unlabored respirations: Yes nausea: No Vomiting: No Anesthesia Complication: No Fluid Hydration Crystalloid volume administer (ml): 900 Total IV fluid infused: 900 Progress Note Anesthesia document: Postop Eval 1 completed: Yes 01/30/251536 Date Lakhwinder Perez FINANCIAL UNDERWRITER Cosigner Signature: Date CC: Signed [facility] [id number] 01-30-2025 MR/POST[address] Medical Records Department [address] [place] [address] Anesthesia Postop Eval II 01/30/25 183 MR#: [id number] Acct: [id number] Name: POLINA THOMSON Rep #: [id number] : 1965 59 From: Bharat Atwood MD PCP: Dr. Willie Adams MD Status:DEP [facility] Y Race: C Location: [facility] Anesthesia Postop Eval I Sum Postop Eval Completion status Anesthesia document: Postop Eval 1 completed: Yes Anesthesia Postop Eval I Summary Anesthesia Postop Eval I Summary: Anesthesia Postop Eval I: Assessment Summary Airway patent Yes 01/30/25 15:37 FINANCIAL [email or web address] Spontaneous unlabored Yes 01/30/25 15:37 FINANCIAL UNDERWRITER.TNES respirations Mental status nausea No 01/30/25 15:37 FINANCIAL [email or web address].TNES Vomiting No 01/30/25 15:37 FINANCIAL [email or web address].TNES Anesthesia Postop Eval I: Fluid Summary Crystalloid volume administer 900 01/30/25 15:37 FINANCIAL UNDERWRITER.TNES (ml) Colloids volume administered ( ml) Blood Product volume administered (ml) Total IV fluid infused 900 01/30/25 15:37 FINANCIAL [email or web address].TNES Anesthesia Postop Eval I: Summary Notes Anesthesia Complication No 01/30/25 15:37 FINANCIAL [email or web address].TNES Anesthesia Complication Comment: Post-operative progress note Anesthesia: Postop Eval II Evaluation Mental status: Awake Pain Level: 0 nausea: No Vomiting: No Complications Anesthesia Complication: No 01/30/251838 Date Bharat Atwood MD Cosigner Signature: Date CC: Signed Normal [facility] Operative Reporton 5 Operative Report [facility] Medical Records Department [address] [place] [address] Operative Report 01/30/25 1549 MR#: [id number] Acct: [id number] Name: POLINA THOMSON Rep #: [id number] : 1965 59 From: Gayatri Weinstein MD PCP: Dr. 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 associate bilingual: No Type of Anesthesia: IV Sedation and Local RN Documented Start/Stop Times: Operation Date: 01/30/25 13:45 Case Time Into Pre-Op 01/30/25 12:13 Out of Pre-Op 01/30/25 14:50 Anesthesia Start 01/30/25 14:59 Into Room 01/30/25 14:59 Procedure Start 01/30/25 15:16 Procedure End 01/30/25 15:23 Anesthesia End 01/30/25 15:31 Out of Room 01/30/25 15:31 Into Recovery 01/30/25 15:32 Procedure Start Time: 15:16 Procedure Stop Time: 15:23 Select all DRAINS/GRAFTS/IMPLANTS that apply: None Estimated Blood Loss: 25 Specimen collected: Yes Description of specimen(s) removed: thin atrophic lining Description of surgery: Patient was prepped and draped in a normal sterile fashion under MAC anesthesia. A weighted speculum was placed in the vagina and the anterior lip of the cervix was grasped with a single-tooth tenaculum. A paracervical block was placed with 1% lidocaine. Cervix was progressively dilated to allow passage of a 7 mm hysteroscope. The lining was fully visualized and noted to have thin atorphic lining . Uterine sounded to 6 cm. Curettage was performed and minimal tissue removed , sent to pathology. All instruments were removed from the vagina and excellent hemostasis was noted. Patient was awoken and taken to recovery in stable condition. Surgical Findings: thin atrophic endometrial lining Complications Complications: No 01/30/25 8622 Cosigner Signature (if applicable): CC: Dr. Willie Adams MD; Dr. Gayatri Weinstein MD Signed Normal [facility] Surgery Specimen Level Mateo 01-30-2025 Surgery Specimen Level IV ---- Patient Age/Sex Location Account Attending Physician ---- POLINA THOMSON 59/F [facility] [id number] Dr. Gayatri Weinstein MD ---- Specimen: [id number] Received: 01/30/25 Status: AKIN Arvizu Num: [id number] Spec Type: ENDOM BX/C Subm Dr: Dr. Gayatri Weinstein MD HEADER OPERATION: Hysteroscopy, D C PRE-OP DIAGNOSIS: Post-menopausal bleeding TISSUE SUBMITTED: A- Endometrial curettings ---- MICROSCOPIC DIAGNOSIS A. Endometrial curettage: * Scant benign squamous and endocervical mucosa and fragments of fibrous tissue. * No endometrium observed. MICROSCOPIC DESCRIPTION Slides are reviewed. GROSS DESCRIPTION A.??? Received in formalin labeled with the patient's name and date of . Designated as endometrial curettings are free-floating flecks of light brown apparent tissue fragments and mucoid material.??? The specimen is spun down into a cell block and entirely submitted in 1 cassette. ME 01/31/2025 [facility]:[id number] ---- Patient Age/Sex Location Account Attending Physician ---- POLINA THOMSON 59/F [facility] [id number] Dr. Gayatri Weinstein MD ---- Signed (signature on file) Dr. Martha Smith MD 02/12/25 0938 ---- Normal [facility] Comment on above: Performed By: #### P SUIV #### [facility] Laboratory [address] [place], [place], [address] Abdomen/Pelvis WITH Contrast on 01-23-2025 Abdomen/Pelvis WITH Contrast [facility] Imaging Services [address] [place], [place] [address] Abdomen/Pelvis WITH Contrast MR#: [id number] Acct: [id number] Name: POLINA THOMSON Rep #: [id number] : 1965 F 59 From: Milton butler MD PCP: Dr. Willie Adams MD Status: REG CLI Study: Abdomen/Pelvis WITH Contrast Date of Exam: 06/09 Exam# [id number] Ordering Dr: Alma Melton PROCEDURE: ABDOMEN/PELVIS WITH CONTRAST 01/23/2025 REASON FOR EXAM: ABD PAIN TECHNIQUE: Abdomen and pelvis CT with intravenous contrast. Coronal and Sagittal reconstruction series were provided. PATIENT PREPARATION: Per protocol ORAL CONTRAST TYPE: Patient ingested oral contrast. CONTRAST: Isovue-300 50 VOLUME: 100 mL One or more dose reduction techniques were used (e.g., Automated exposure control, adjustment of the mA and/or kV according to patient size, use of iterative reconstruction technique. RADIATION DOSE SUMMARY: CTDlvol: 18.8 mGy DLP: 1045 mGycm COMPARISON: 02/05/2020. FINDINGS: Hepatic steatosis. Unchanged scattered simple hepatic cysts with the largest measuring 1.2 cm. Prior appendectomy. Uncomplicated colonic diverticulosis. Diffuse thickening of the stomach suggestive of gastritis. Unchanged horseshoe kidney. Unchanged 3 mm right renal nonobstructing stone. Unchanged scattered left renal cysts with the largest measuring 3.5 cm. Unchanged bilateral fullness of the extrarenal pelves. Mild diffuse spondylosis. The visualized lung bases are unremarkable. Normal gallbladder and extrahepatic biliary system. Normal spleen. Normal pancreas. Normal bilateral adrenal glands. There is no right renal mass. There is no right hydronephrosis. Normal visualized right ureter. There is no left renal mass. There are no left renal calculi. There is no left hydronephrosis. Normal visualized left ureter. Normal small intestine. There is no demonstrated peritoneal fluid. Mild calcified atheromatous plaques of the abdominal aorta. Normal inferior vena cava. Normal retroperitoneum. Normal urinary bladder. There is no pelvic mass lesion or lymphadenopathy. There is no pelvic fluid. CT/Abdomen/Pelvis WITH Contrast IMPRESSION: Hepatic steatosis. Unchanged scattered simple hepatic cysts with the largest measuring 1.2 cm. Prior appendectomy. Uncomplicated colonic diverticulosis. Diffuse thickening of the stomach suggestive of gastritis. Unchanged horseshoe kidney. Unchanged 3 mm right renal nonobstructing stone. Unchanged scattered left renal cysts with the largest measuring 3.5 cm. Unchanged bilateral fullness of the extrarenal pelves. Mild diffuse spondylosis. Reading Location: [place] [address] CC: Dr. Willie Adams MD; LETICIA Ham Material Handler 1St Shift: Signed Normal [facility] 12 Lead EKGon 01-22-2025 12 Lead EKG [facility] Cardiovascular Services [address] [place] [address] 12 Lead EKG 01/22/25 0729 MR#: [id number] Acct: [id number] Name: POLINA THOMSON Rep #: [id number] : 1965 59 From: Jamari Michael MD Attending Dr: Dr. Gayatri Weinstein MD Status: PRE [facility] Ordering Dr: Gayatri Weinstein MD Date: 01/22/25 Location: [facility] Sex: F C Admitted: Test Reason : PREOP Blood Pressure : */* mmHG Vent. Rate : 55 BPM Atrial Rate : 55 BPM P-R Int : 166 ms QRS Dur : 102 ms QT Int : 422 ms P-R-T Axes : 67 55 41 degrees QTcB Int : 403 ms Sinus bradycardia Otherwise normal ECG No previous ECGs available Confirmed by Jamari Michael ([id number]), editor book KELECHI MOSHER ([id number]) on 01/22/2025 10:43:59 AM Referred By: Gayatri Weinstein Confirmed By: Jamari Michael 01/22/25 1044 Date Jamari Michael MD CC: Dr. Willie Adams MD; Dr. Gayatri Weinstein MD Signed Normal [facility] Electrocardiogram reportOrde red By: Jamari Michael on 01-22-2025 EKG study [facility] Cardiovascular Services [address] [place] [address] 12 Lead EKG 01/22/25 0729 MR#: [id number] Acct: [id number] Name: POLINA THOMSON Rep #:[id number] : 1965 59 From: Jamari grace MD Attending Dr: Dr. Gayatri Weinstein MD Status: PRE [facility] Ordering Dr: Gayatri Weinstein MD Chris e: 01/22/25 Location: [facility] Sex: F C Admitted: Test Reason : PREOP Blood Pressure : */* mmHG Vent. Rate : 55 BPM Atrial Rate : 55 BPM P-R Int : 166 ms QRS Dur : 102 ms QT Int : 422 ms P-R-T Axes : 67 55 41 degrees QTcB Int : 403 ms Sinus bradycardia Otherwise normal ECG No previous ECGs available Confirmed by Jamari Michael ([id number]), editor book KELECHI MOSHER ([id number]) on 01/22/2025 10:43:59 AM Referred By: Gayatri Weinstein Confirmed By: Jamari Michael 01/22/25 1044 Date _ Jamari Michael MD CC: Dr. Willie Adams MD; Dr. Gayatri Weinstein MD ~ Signed [facility] Work Phone: Anion gap in Serum or Plasma Ordered By: Gayatri Weinstein on 01-17-2025 Anion gap [Moles/Vol] 11 mmol/L 5-15 [facility] BUN/creatinine ratioOrdered By: Gayatri Weinstein on 01-17-2025 Urea nitrogen/Creatinine [Mass ratio] 11.7 mg/mg - [facility] Basic Metabolic Profile (BMP )on 01-17-2025 BUN/CRE 11.7 RATIO Normal - [facility] Comment on above: Performed By: #### L 500.2500, L100.0500, BTS ####[facility] [address] [place], [address] Calcium [Mass/Vol] 9.0 mg/dL Normal 7.6-11.0 [facility] Comment on above: Performed By: #### L 500.2500, L100.0500, BTS ####[facility] [address] [place], [address] Chloride [Moles/Vol] 104 mmol/L Normal 98-108 [facility] Comment on above: Performed By: #### L 500.2500, L100.0500, BTS ####[facility] [address] [place], [address] CO2 [Moles/Vol] 24.1 mmol/L Normal 21.0-32.0 [facility] Comment on above: Performed By: #### L 500.2500, L100.0500, BTS ####[facility] [address] [place], [address] Creatinine [Mass/Vol] 1.15 mg/dL Normal 0.70-1.20 [facility] Comment on above: Performed By: #### L 500.2500, L100.0500, BTS ####[facility] [address] [place], [address] GAP 11 Normal -15 [facility] Comment on above: Performed By: #### L 500.2500, L100.0500, BTS ####[facility] [address] [place], [address] GFR/1.73 sq M.predicted among non-blacks MDRD (S/P/Bld) [Vol rate/Area] 56 mL/min/{1.73_m2} Low >60 [facility] Comment on above: Result Comment: mL/m in/1.73m2 CKD-EPI Creatinine Equation (2020) Performed By: #### L 500.2500, L100.0500, BTS ####[facility] [address] [place], [address] Glucose [Mass/Vol] 97 mg/dL Normal 70-99 [facility] Comment on above: Performed By: #### L 500.2500, L100.0500, BTS ####[facility] [address] [place], [address] Potassium [Moles/Vol] 4.1 mmol/L Normal 3.3-5.1 [facility] Comment on above: Performed By: #### L 500.2500, L100.0500, BTS ####[facility] [address] [place], [address] Sodium [Moles/Vol] 139 mmol/L Normal 133-145 [facility] Comment on above: Performed By: #### L 500.2500, L100.0500, BTS ####[facility] [address] [place], [address] Urea nitrogen [Mass/Vol] 13 mg/dL Normal 4-19 [facility] Comment on above: Performed By: #### L 500.2500, L100.0500, BTS ####[facility] [address] [place], [address] CBC-Complete Blood Cnt No Di ffon 01-17-2025 Erythrocyte distribution width (RBC) [Ratio] 12.0 % Normal 11.6-14.6 [facility] Comment on above: Performed By: #### L 500.2500, L100.0500, BTS ####[facility] [address] [place], [address] Hematocrit (Bld) [Volume fraction] 39.9 % Normal 37-47 [facility] Comment on above: Performed By: #### L 500.2500, L100.0500, BTS ####[facility] [address] [place], [address] Hemoglobin (Bld) [Mass/Vol] 13.5 g/dL Normal 12.0-15.0 [facility] Comment on above: Performed By: #### L 500.2500, L100.0500, BTS ####[facility] [address] [place], [address] MCH (RBC) [Entitic mass] 30.7 pg Normal 27.0-32.0 [facility] Comment on above: Performed By: #### L 500.2500, L100.0500, BTS ####[facility] [address] [place], [address] MCHC (RBC) [Mass/Vol] 33.8 g/dL Normal 32-36 [facility] Comment on above: Performed By: #### L 500.2500, L100.0500, BTS ####[facility] [address] [place], [address] MCV (RBC) [Entitic vol] 90.7 fL Normal 81-99 [facility] Comment on above: Performed By: #### L 500.2500, L100.0500, BTS ####[facility] [address] [place], [address] Platelet mean volume (Bld) [Entitic vol] 10.8 fL Normal 6.2-12.0 [facility] Comment on above: Performed By: #### L 500.2500, L100.0500, BTS ####[facility] [address] [place], [address] Platelets (Bld) [#/Vol] 241 10*3/uL Normal 150-450 [facility] Comment on above: Performed By: #### L 500.2500, L100.0500, BTS ####[facility] [address] [place], [address] RBC (Bld) [#/Vol] 4.40 10*6/uL Normal 4.2-5.4 [facility] Comment on above: Performed By: #### L 500.2500, L100.0500, BTS ####[facility] [address] [place], [address] RDW SD 40.0 fl Normal 35.1-43.9 [facility] Comment on above: Performed By: #### L 500.2500, L100.0500, BTS ####[facility] [address] [place], [address] WBC (Bld) [#/Vol] 5.3 10*3/uL Normal 4.4-11.0 [facility] Comment on above: Performed By: #### L 500.2500, L100.0500, BTS ####[facility] [address] [place], [address] Carbon dioxide, total [Moles /volume] in Central venous bloodOrdered By: Gayatri Weinstein on 01-17-2025 CO2 [Moles/Vol] 24.1 mmol/L 21.0-32.0 [facility] Chloride assayOrdered By: Rosalina Weinstein on 01-17-2025 Chloride [Moles/Vol] 104 mmol/L 98-108 [facility] Erythrocyte distribution wid th ratioOrdered By: Gayatri Weinstein on 01-17-2025 Erythrocyte distribution width (RBC) [Ratio] 12.0 % 11.6-14.6 [facility] Erythrocyte distribution wid th standard deviationOrdered By: Gayatri Weinstein on 01-17-2025 Erythrocyte distribution width (RBC) [Ratio] 40.0 fl 35.1-43.9 [facility] Glomerular filtration rate ( GFR) estimation/1.73 sq m using serum, plasma, or whole bOrdered By: Gayatri Weinstein on 01-17-2025 GFR/1.73 sq M.predicted among non-blacks MDRD (S/P/Bld) [Vol rate/Area] 56 mL/min/{1.73_m2} Low >60 [facility] Comment on above: mL/min/1.73m2 CKD-EP I Creatinine Equation (2020) Hematocrit Auto (Bld) [Volum e fraction]Ordered By: Gayatri Weinstein on 01-17-2025 Hematocrit (Bld) [Volume fraction] 39.9 % 37-47 [facility] Hemoglobin measurementOrdere d By: Gayatri Weinstein on 01-17-2025 Hemoglobin (Bld) [Mass/Vol] 13.5 g/dL 12.0-15.0 [facility] MCV (mean corpuscular volume ) determinationOrdered By: Gayatri Weinstein on 01-17-2025 MCV (RBC) [Entitic vol] 90.7 fL 81-99 [facility] Mean corpuscular hemoglobin (MCH) determinationOrdered By: Gayatri Weinstein on 01-17-2025 MCH (RBC) [Entitic mass] 30.7 pg 27.0-32.0 [facility] Mean corpuscular hemoglobin concentration (MCHC) determinationOrdered By: Gayatri Weinstein on 01-17-2025 MCHC (RBC) [Mass/Vol] 33.8 g/dL 32-36 [facility] Mean platelet volume determi nationOrdered By: Gayatri Weinstein on 01-17-2025 Platelet mean volume (Bld) [Entitic vol] 10.8 fL 6.2-12.0 [facility] Platelet countOrdered By: Rosalina Weinstein on 01-17-2025 Platelets (Bld) [#/Vol] 241 10*3/uL 150-450 [facility] Potassium measurement (mass/ volume)Ordered By: Gayatri Weinstein on 01-17-2025 Potassium (Unsp spec) [Mass/Vol] 4.1 mmol/L 3.3-5.1 [facility] RBC Auto (Bld) [#/Vol]Ordere d By: Gayatri Weinstein on 01-17-2025 RBC (Bld) [#/Vol] 4.40 10*6/uL 4.2-5.4 [facility] Serum creatinine measurement (mass/volume)Ordered By: Gayatri Weinstein on 01-17-2025 Creatinine [Mass/Vol] 1.15 mg/dL 0.70-1.20 [facility] Serum glucose measurement (m ass/volume)Ordered By: Gayatri Weinstein on 01-17-2025 Glucose [Mass/Vol] 97 mg/dL 70-99 [facility] Serum or plasma calcium carlito urement (mass/volume)Ordered By: Gayatri Weinstein on 01-17-2025 Calcium [Mass/Vol] 9.0 mg/dL 7.6-11.0 [facility] Serum or plasma urea nitroge n measurement (mass/volume)Ordered By: Gayatri Weinstein on 01-17-2025 Urea nitrogen [Mass/Vol] 13 mg/dL 4-19 [facility] Sodium levelOrdered By: Adiel Weinstein on 01-17-2025 Sodium [Moles/Vol] 139 mmol/L 133-145 [facility] Type AND Screenon 01-17-2025 ABO and Rh group Nom (Bld) Blood group B Rh(D) negative Normal [facility] Comment on above: Order Comment: Reaso n for Laboratory Test PRE OPD C Performed By: #### L 500.2500, L100.0500, BTS ####[facility] [address] [place], [place], [address] White blood cell (WBC) count Ordered By: Gayatri Weinstein on 01-17-2025 WBC (Bld) [#/Vol] 5.3 10*3/uL 4.4-11.0 [facility] Outside Production Inspector Office Visit Reporton 01-12-2025 Outside Production Inspector Office Visit Report [facility] [address], [address] [place] [address] OFFICE VISIT Date of Service: 01/12/25 MR#: [id number] Acct: [id number] Name: POLINA THOMSON Rep #: [id number] : 1965 Provider: Dr. 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 Normal [facility] Gastroenterology Visit Repor ton 12-28-2024 Gastroenterology Visit Report [facility] Gastroenterology [address] [place] [address] OFFICE VISIT Date of Service: 12/28/24 MR#: [id number] Acct: [id number] Name: POLINA THOMSON Rep #: [id number] : 1965 Provider: LETICIA Ham Age/Sex: 59/F Location: [facility] Status: Signed Intake Vital Signs 11/29/24 05:40 Height 5 ft 7 in Intake Visit Reasons: Medication issues Chief Complaint: epigastirc pain and bloating Allergies perfume Allergy (Verified 11/24/24 13:31) throat swelling Medications ???Medication ???Instructions ???Recorded ???Confirmed ???Type ibuprofen 600 mg tablet 600 mg PO Q6H PRN PRN Pain Score 0 02/05/20 11/29/24 Rx -05/25 #20 tabs mecobalamin (vitamin B12) 500 mcg mcg PO 09/08/24 11/23/24 History chewable tablet propranolol 60 mg capsule,24 60 mg PO QHS 09/08/24 11/29/24 His tory hr,extended release jzxwyehm-xow-hoabo ac 400 tab PO 11/08/24 11/23/24 History mcg-calcium carb 500 mg-vit K1 20 mcg tablet (Women's 50 Plus Multivitamin) sennosides 8.6 mg capsule (senna) 8.6 mg PO QDAY PRN constipation 0 11/08/24 12/28/24 History vit C 180 mg-D3 10 mcg-zinc 5.5 cap PO 11/08/24 12/28/24 History xz-omoqee-ugezyuu-ging er-herb capsule (Immune Support (vit c, d [...] and feels that is helping with indigestion. [facility] Medical History (Updated 12/28/24 @ [...] 3 current occupational status: employed current occupation: [place] [employer] current occupational exposures/hazards: No pets and animals: [...] of taki (more content not included)... Normal [facility] Gastroenterology Visit Repor ton 12-13-2024 Gastroenterology Visit Report [facility] Gastroenterology [address] [place] [address] OFFICE VISIT Date of Service: 12/13/24 MR#: [id number] Acct: [id number] Name: POLINA THOMSON Rep #: [id number] : 1965 Provider: LETICIA Ham Age/Sex: 59/F Location: [facility] Status: Signed Intake Vital Signs 02/15/23 14:49 [...] indigestion, gas and bloating after most meal. 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 [facility] [place] established 2.5.25 with complaints of GI issues over many years. Worsening symptoms over the past few months with abd distention, early satiety, n/v, heartburn and constipation. Endorses weight gain. Taking senna daily for constipation x1 year. Last EGD and colonoscopy in 2019 with normal findings. *Trial Ibsrela, EGD, GES GES 2..25; normal EGD .; Normal esophagus. - Normal stomach. - Chronic [...] exertion; No (more content not included)... Normal [facility] EGD Reporton 11-29-2024 EGD Report [facility] Medical Records Department [address] [place] [address] EGD Report MR#: [id number] Acct: [id number] Name: POLINA THOMSON Rep #: [id number] : 1965 59 From: Adria Cisse DO PCP: Dr. Willie Adams MD Status:REG [facility] Patient Name: Polina Thomson Procedure Date: 11/29/2024 [...] pathology results. Procedure Code(s): --- Professional --- 23237, Small intestinal endoscopy, enteroscopy beyond second portion of duodenum, not including ileum; with biopsy, single or multiple CPT copyright 2021 [employer]. All rights reserved. The codes documented in this report are preliminary and upon rheumatology specialist review may be revised to meet current compliance requirements. Adria Cisse DO 11/29/2024 7:04:06 AM This report has been signed electronically. Number of Addenda: 0 Note Initiated On: 11/29/2024 6:13 AM 11/29/24 0704 Date Adria Moralesignbigg Signature: Date (if indicated) CC: Dr. Willie Adams MD; Adria Cisse DO Date Dictated: 11/29/24612 Date Transcribed: Material Handler 1St Shift: YARON Signed [facility] MR/POSTOP.[facility] 11-29-2024 MR/POSTOP.[facility] Medical Records Department [address] [place] [address] Anesthesia Postop Eval I 11/29/24707 MR#: [id number] Acct: [id number] Name: POLINA THOMSON Rep #: [id number] : 1965 59 From: Lele Keys PCP: Dr. Willie Adams MD Status:REG [facility] Y Race: C Location: [place] [address] Anesthesia: Postop Eval I Current Vital Signs [...] 1 completed: Yes 11/29/24 07 Date Lele Wen Signature: Date CC: Signed Normal [facility] MR/ODSOQKQZ0oe 11-29-2024 MR/POSTOPAN2 [facility] Medical Records Department [address] [place] [address] Anesthesia Postop Eval II 11/29/24729 MR#: [id number] Acct: [id number] Name: POLINA THOMSON Rep #: [id number] : 1965 59 From: Michael Grier MD PCP: Dr. Willie Adams MD Status:REG [facility] Y Race: C Location: [address] Anesthesia Postop Eval I Sum Postop Eval [...] Level: 0 nausea: No Vomiting: No 11/29/24729 Michael Wen Signature: Date CC: Signed Normal [facility] Surgery Specimen Level Mateo 11-29-2024 Surgery Specimen Level IV ---- Patient Age/Sex Location Account Attending Physician ---- POLINA THOMSON 59/F EN [id number] Adria Cisse DO ---- Specimen: [id number] Received: 11/29/24 Status: AKIN Arvizu Num: [id number] Spec Type: EGD BIOPSY Kapil Dr: Adria Cisse, DO HEADER OPERATION: EGD with biopsy PRE-OP [...] in aggregate. Submitted in toto in A1. [facility] 12/13/2024 CPT:84021 ---- Patient Age/Sex Location Account Attending Physician ---- POLINA THOMSON/F EN [id number] Adria Cisse DO ---- Signed (signature on file) Dr. Martha Smith MD 12/13/24 0821 ---- Normal [facility] Comment on above: Performed By: #### P SUIV #### [facility] [address] [place], [place], [id number] Laboratory - Chemistry and C hemistry - challengeOrdered By: Sharon Whiting on 11-23-2024 HCG ( test) Ql (U) Negative [facility] Outside Production Inspector Office Visit Reporton 11-23-2024 Outside Production Inspector Office Visit Report [facility] [address], [address] [place] [address] OFFICE VISIT Date of Service: 11/23/24 MR#: [id number] Acct: [id number] Name: POLINA THOMSON Rep #: [id number] : 1965 Provider: NIKOLE gleason Age/Sex: 59/F Location: [facility] Status: Signed Intake Vital Signs 11/09/24 08:06 11/23/24 15:14 11/23/24 15:14 Height 5 ft 7 in 5 ft 7 in 5 ft 7 in Weight: 196 lb 6 oz 192 lb BMI 30.7 30.0 BP 122/80 H 133/81 H Intake Visit Reasons: EMB Finance Officer Required: No Is patient in pain?: No [...] QDAY 09/08/24 11/23/24 Hi story hr,extended release ugcappjd-njx-amsiv ac 400 tab PO 11/08/24 11/23/24 History [...] mcg-zinc 5.5 cap PO 11/08/24 11/23/24 History mw-otpdgu-qawvlcq-ging er-herb capsule (Immune Support (vit c, d and zinc)) PFSH PFS Medical History Blood glucose elevated Hyperlipidemia Anxiety [...] 3 current occupational status: employed 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 Normal [facility] Surgery Specimen Level Mateo 11-23-2024 Surgery Specimen Level IV ---- Patient Age/Sex Location Account Attending Physician ---- POLINA THOMSON 59/F LABSPEC [id number] NIKOLE Pereira ---- Specimen: [id number] Received: 11/23/24 Status: AKIN Arvizu Num: [id number] Spec Type: ENDOM BX/C Subm Dr: NIKOLE Pereira HEADER OPERATION: Endometrial biopsy [...] in aggregate. Submitted in toto in A1. [facility] 12/01/2024 CPT:59267 ---- Patient Age/Sex Location Account Attending Physician ---- POLINA THOMSON 59/F LABSPEC [id number] NIKOLE Pereira ---- Signed (signature on file) Dr. Martha Smith MD 12/01/246 ---- Normal [facility] Comment on above: Performed By: #### P SUIV ####[facility] [address] [place], [address] PAP IG HPV APTIMA 16/18,45on 11-13-2024 ADEQ Comment Normal . [facility] Comment on above: Order Comment: Speci men Comment: [id number] Comment: Source.............CervixSpecimen Comment: Other..............Post MenopausalSpecimen Comment: No. of containers..01 ThinPrep Vial Result Comment: Sati sfactory for evaluation. Endocervical and/or squamous metaplastic cells (endocervical component) are present. Performed By: #### L 7400.0280 ####[facility] [address] [place], [place], [id number] COMM . Normal . [facility] Comment on above: Order Comment: Speci men Comment: [id number] Comment: Source.............CervixSpecimen Comment: Other..............Post MenopausalSpecimen Comment: No. of containers..01 ThinPrep Vial Performed By: #### L 7400.0280 ####[facility] [address] [place], [address] COMMENT Comment Normal . [facility] Comment on above: Order Comment: Speci men Comment: [id number] Comment: Source.............CervixSpecimen Comment: Other..............Post MenopausalSpecimen Comment: No. of containers..01 ThinPrep Vial Result Comment: This liquid based ThinPrep(R) pap test was screened with the use of an image guided system. Performed By: #### L 7400.0280 ####[facility] [address] [place], [place], [id number] DIAG Comment Normal . [facility] Comment on above: Order Comment: Speci men Comment: [id number] Comment: Source.............CervixSpecimen Comment: Other..............Post MenopausalSpecimen Comment: No. of containers..01 ThinPrep Vial Result Comment: NEGA TIVE FOR INTRAEPITHELIAL LESION OR MALIGNANCY. Performed By: #### L 7400.0280 ####[facility] [address] [place], [place], [address] HPV APTIMA, HR Negative Normal Negative [facility] Comment on above: Order Comment: Speci men Comment: [id number] Comment: Source.............CervixSpecimen Comment: Other..............Post MenopausalSpecimen Comment: No. of containers..01 ThinPrep Vial Result Comment: This nucleic acid amplification test detects fourteen high- risk HPV types (16,18,31,33,35,39,45,51,52,56,58,59,66,68) without differentiation. Performed By: #### L 7400.0280 ####[facility] [address] [facility]. [place], [place], [id number] HPV Anum Rfx Comment Normal . [facility] Comment on above: Order Comment: Speci men Comment: [id number] Comment: Source.............CervixSpecimen Comment: Other..............Post MenopausalSpecimen Comment: No. of containers..01 ThinPrep Vial Result Comment: Crit ershannon not met, HPV Genotype not performed. Performed at: - [facility] [id number] Entry Rep: Denisse Cheney MD, Phone: [phone] Performed at: = - [facility] [address] [id number] Entry Rep: Denisse Cheney MD, Phone: [phone] Performed By: #### L 7400.0280 ####[facility] [address] [place], [place], [id number] PAPSMR Comment Normal . [facility] Comment on above: Order Comment: Speci men Comment: [id number] Comment: Source.............CervixSpecimen Comment: Other..............Post MenopausalSpecimen Comment: No. [...] do occur. Performed By: #### L 7400.0280 ####[facility] [address] [place], [address] PERFORM Comment Normal . [facility] Comment on above: Order Comment: Speci men Comment: [id number] Comment: Source.............CervixSpecimen Comment: Other..............Post MenopausalSpecimen Comment: No. of containers..01 ThinPrep Vial Result Comment: Patricia Hagen, Community Youth Secretary (ASCP) Performed By: #### L 7400.0280 ####[facility] [address] [place], [address] Pelvic w/ Transvaginalon Pelvic w/ Transvaginal [facility] [address] [place], [place] [address] Pelvic w/ Transvaginal MR#: [id number] Acct: [id number] Name: POLINA THOMSON Rep #: [id number] : 1965 F 59 From: Ariel moody MD PCP: Dr. 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 Reading Location: [id number] CC: NIKOLE Lucio; Dr. Willie Adams MD Material Handler 1St Shift: Signed Normal [facility] Hemoglobin A1con 11-10-2024 HbA1c (Bld) [Mass fraction] 5.6 % Low <=5.6 [facility] Comment on above: Performed By: #### L 501.9985 ####[facility] [address] [place], [address] Absolute lymphocyte countOrd ered By: Willie Adams on 11-09-2024 Lymphocytes Auto (Unsp spec) [#/Vol] 1.89 10*3/uL 0.83-4.51 [facility] Absolute neutrophil countOrd ered By: Willie Adams on 11-09-2024 Neutrophils (Bld) [#/Vol] 3.1 10*3/uL 2.0-7.7 [facility] Anion gap in Serum or Plasma Ordered By: Willie Adams on 11-09-2024 Anion gap [Moles/Vol] 11 mmol/L 5-15 [facility] Automated lymphocyte count a s percentage of total leukocytesOrdered By: Willie Adams on 11-09-2024 Lymphocytes/100 WBC Auto (Unsp spec) 33.5 % 19- [facility] BUN/creatinine ratioOrdered By: Willie Adams on 11-09-2024 Urea nitrogen/Creatinine [Mass ratio] 14.8 mg/mg 10-20 [facility] Basophil percentageOrdered B y: Willie Adams on 11-09-2024 Basophils/100 WBC (Bld) 1.2 % High 0-1 [facility] Bilirubin, totalOrdered By: Willie Adams on 11-09-2024 Bilirubin [Mass/Vol] 0.35 mg/dL 0.00-1.30 [facility] CBC W/Diff, Automatedon 10-15 Absolute Lymph 1.89 X10 3/uL Normal 0.83-4.51 [facility] Comment on above: Performed By: #### L 506.0400, L100.0100, L500.4050, L500.4100, L501.9520 #### [facility] [address] [place], [address] Absolute Neut 3.1 X10 3/uL Normal 2.0-7.7 [facility] Comment on above: Performed By: #### L 506.0400, L100.0100, L500.4050, L500.4100, L501.9520 #### [facility] [address] [place], [address] Basophils/100 WBC (Bld) 1.2 % High 0-1 [facility] Comment on above: Performed By: #### L 506.0400, L100.0100, L500.4050, L500.4100, L501.9520 #### [facility] [address] [place], [address] Eosinophils/100 WBC (Bld) 2.5 % Normal 0-5 [facility] Comment on above: Performed By: #### L 506.0400, L100.0100, L500.4050, L500.4100, L501.9520 #### [facility] [address] [place], [address] Erythrocyte distribution width (RBC) [Ratio] 12.1 % Normal 11.6-14.6 [facility] Comment on above: Performed By: #### L 506.0400, L100.0100, L500.4050, L500.4100, L501.9520 #### [facility] [address] [place], [address] Hematocrit (Bld) [Volume fraction] 41.8 % Normal 37-47 [facility] Comment on above: Performed By: #### L 506.0400, L100.0100, L500.4050, L500.4100, L501.9520 #### [facility] [address] [place], [address] Hemoglobin (Bld) [Mass/Vol] 13.9 g/dL Normal 12.0-15.0 [facility] Comment on above: Performed By: #### L 506.0400, L100.0100, L500.4050, L500.4100, L501.9520 #### [facility] [address] [place], [address] IG% 0.200 Normal 0.0-0.9 [facility] Comment on above: Result Comment: IG% - Immature Granulocytes (promyelocytes, myelocytes and metamyelocytes) > 1% indicates that a LEFT SHIFT is Present. Performed By: #### L 506.0400, L100.0100, L500.4050, L500.4100, L501.9520 #### [facility] [address] [place], [address] Lymphocytes/100 WBC (Bld) 33.5 % Normal 19-41 [facility] Comment on above: Performed By: #### L 506.0400, L100.0100, L500.4050, L500.4100, L501.9520 #### [facility] [address] [place], [address] MCH (RBC) [Entitic mass] 30.5 pg Normal 27.0-32.0 [facility] Comment on above: Performed By: #### L 506.0400, L100.0100, L500.4050, L500.4100, L501.9520 #### [facility] [address] [place], [address] MCHC (RBC) [Mass/Vol] 33.3 g/dL Normal 32-36 [facility] Comment on above: Performed By: #### L 506.0400, L100.0100, L500.4050, L500.4100, L501.9520 #### [facility] [address] [place], [address] MCV (RBC) [Entitic vol] 91.9 fL Normal 81-99 [facility] Comment on above: Performed By: #### L 506.0400, L100.0100, L500.4050, L500.4100, L501.9520 #### [facility] [address] [place], [address] Monocytes/100 WBC (Bld) 7.6 % Normal 0-10 [facility] Comment on above: Performed By: #### L 506.0400, L100.0100, L500.4050, L500.4100, L501.9520 #### [facility] [address] [place], [address] Neutrophils/100 WBC (Bld) 55.0 % Normal 47-70 [facility] Comment on above: Performed By: #### L 506.0400, L100.0100, L500.4050, L500.4100, L501.9520 #### [facility] [address] [place], [address] Nucleated RBC (Bld) [#/Vol] 0 10*3/uL Normal 0-5 [facility] Comment on above: Performed By: #### L 506.0400, L100.0100, L500.4050, L500.4100, L501.9520 #### [facility] [address] [place], [address] Platelet mean volume (Bld) [Entitic vol] 10.0 fL Normal 6.2-12.0 [facility] Comment on above: Performed By: #### L 506.0400, L100.0100, L500.4050, L500.4100, L501.9520 #### [facility] [address] [place], [address] Platelets (Bld) [#/Vol] 242 10*3/uL Normal 150-450 [facility] Comment on above: Performed By: #### L 506.0400, L100.0100, L500.4050, L500.4100, L501.9520 #### [facility] [address] [place], [address] RBC (Bld) [#/Vol] 4.55 10*6/uL Normal 4.2-5.4 [facility] Comment on above: Performed By: #### L 506.0400, L100.0100, L500.4050, L500.4100, L501.9520 #### [facility] [address] [place], [address] RDW SD 40.3 fl Normal 35.1-43.9 [facility] Comment on above: Performed By: #### L 506.0400, L100.0100, L500.4050, L500.4100, L501.9520 #### [facility] [address] [place], [address] WBC (Bld) [#/Vol] 5.6 10*3/uL Normal 4.4-11.0 [facility] Comment on above: Performed By: #### L 506.0400, L100.0100, L500.4050, L500.4100, L501.9520 #### [facility] [address] [place], [address] Calculated very low density lipoprotein (VLDL) cholesterol measurementOrdered By: Willie Adasm on 11-09-2024 Calculated very low density lipoprotein (VLDL) cholesterol measurement 29 mg/dL 5-40 [facility] VLDL Cholesterol 29 mg/dL -40 [facility] Carbon dioxide, total [Moles /volume] in Central venous bloodOrdered By: Willie Adams on 11-09-2024 CO2 [Moles/Vol] 23.7 mmol/L 21.0-32.0 [facility] Cervical or vaginal specimen microscopic examination by liquid based cytology (reportOrdered By: Fadia Lucio on 11-09-2024 Cytology report Cyto stain.thin prep Doc (Cvx/Vag) Comment . [facility] Comment on above: Criteria not met, HP V Genotype not performed.Performed at: - [address] [id number] Director: Denisse Cheney MD, Phone: [phone] at: =[facility] [id number] Director: Denisse Cheney MD, Phone: [phone] Cervical or vagninal specime n microscopic examination by cytology stain (reported asOrdered By: Fadia Lucio on 11-09-2024 Cytology report Cyto stain Doc (Cvx/Vag) Comment . [facility] Comment on above: The Pap smear is a s creening test designed to aid in thedetection of premalignant and malignant conditions of theuterine cervix. It is not a diagnostic procedure andshould not be used as the sole means of detecting cervicalcancer. Both false-positive and false-negative reports dooccur. Chloride assayOrdered By: Mike Adams on 11-09-2024 Chloride [Moles/Vol] 106 mmol/L 98-108 [facility] Comprehensive Metabolic Prof ilon 11-09-2024 Albumin [Mass/Vol] 4.4 g/dL Normal 3.5-5.0 [facility] Comment on above: Performed By: #### L 506.0400, L100.0100, L500.4050, L500.4100, L501.9520 ####[facility] [address] [place], [address] Albumin/Globulin [Mass ratio] 1.7 {ratio} Normal 0.9-2.4 [facility] Comment on above: Performed By: #### L 506.0400, L100.0100, L500.4050, L500.4100, L501.9520 ####[facility] [address] [place], [address] ALK PHOS 92 U/L Normal 35-104 [facility] Comment on above: Performed By: #### L 506.0400, L100.0100, L500.4050, L500.4100, L501.9520 ####[facility] [address] [place], [address] ALT [Catalytic activity/Vol] 14 U/L Normal <=34 [facility] Comment on above: Performed By: #### L 506.0400, L100.0100, L500.4050, L500.4100, L501.9520 ####[facility] [address] [place], [address] AST [Catalytic activity/Vol] 20 U/L Normal <=31 [facility] Comment on above: Performed By: #### L 506.0400, L100.0100, L500.4050, L500.4100, L501.9520 ####[facility] [address] [place], [address] Bilirubin [Mass/Vol] 0.35 mg/dL Normal 0.00-1.30 [facility] Comment on above: Performed By: #### L 506.0400, L100.0100, L500.4050, L500.4100, L501.9520 ####[facility] [address] [place], [address] BUN/CRE 14.8 RATIO Normal 10-20 [facility] Comment on above: Performed By: #### L 506.0400, L100.0100, L500.4050, L500.4100, L501.9520 ####[facility] [address] [place], [address] Calcium [Mass/Vol] 9.5 mg/dL Normal 7.6-11.0 [facility] Comment on above: Performed By: #### L 506.0400, L100.0100, L500.4050, L500.4100, L501.9520 ####[facility] [address] [place], [address] Chloride [Moles/Vol] 106 mmol/L Normal 98-108 [facility] Comment on above: Performed By: #### L 506.0400, L100.0100, L500.4050, L500.4100, L501.9520 ####[facility] [address] [place], [address] CO2 [Moles/Vol] 23.7 mmol/L Normal 21.0-32.0 [facility] Comment on above: Performed By: #### L 506.0400, L100.0100, L500.4050, L500.4100, L501.9520 ####[facility] [address] [place], [address] Creatinine [Mass/Vol] 1.05 mg/dL Normal 0.70-1.20 [facility] Comment on above: Performed By: #### L 506.0400, L100.0100, L500.4050, L500.4100, L501.9520 ####[facility] [address] [place], [address] GAP 11 Normal 5-15 [facility] Comment on above: Performed By: #### L 506.0400, L100.0100, L500.4050, L500.4100, L501.9520 ####[facility] [address] [place], [address] GFR/1.73 sq M.predicted among non-blacks MDRD (S/P/Bld) [Vol rate/Area] 62 mL/min/{1.73_m2} Normal >60 [facility] Comment on above: Result Comment: mL/m in/1.73m2 CKD-EPI Creatinine Equation (2020) Performed By: #### L 506.0400, L100.0100, L500.4050, L500.4100, L501.9520 ####[facility] [address] [place], [address] Globulin (S) [Mass/Vol] 2.7 g/dL Normal 2.2-4.2 [facility] Comment on above: Performed By: #### L 506.0400, L100.0100, L500.4050, L500.4100, L501.9520 ####[facility] [address] [place], [address] Glucose [Mass/Vol] 104 mg/dL High 70-99 [facility] Comment on above: Performed By: #### L 506.0400, L100.0100, L500.4050, L500.4100, L501.9520 ####[facility] [address] [place], [address] Potassium [Moles/Vol] 4.5 mmol/L Normal 3.3-5.1 [facility] Comment on above: Performed By: #### L 506.0400, L100.0100, L500.4050, L500.4100, L501.9520 ####[facility] [address] [place], [address] Sodium [Moles/Vol] 140 mmol/L Normal 133-145 [facility] Comment on above: Performed By: #### L 506.0400, L100.0100, L500.4050, L500.4100, L501.9520 ####[facility] [address] [place], [address] T PROT 7.1 g/dL Normal 5.9-8.4 [facility] Comment on above: Performed By: #### L 506.0400, L100.0100, L500.4050, L500.4100, L501.9520 ####[facility] [address] [place], [address] Urea nitrogen [Mass/Vol] 16 mg/dL Normal 4-19 [facility] Comment on above: Performed By: #### L 506.0400, L100.0100, L500.4050, L500.4100, L501.9520 ####[facility] [address] [place], [address] Can Filling Room Sweeper Cyto stain Nom (C vx/Vag) [ID]Ordered By: Fadia Lucio on 11-09-2024 Pap Smear Performed By Comment . [facility] Comment on above: Tiffany Chavez ytotechnologist (ASCP) Cytology report Cyto stain D oc (Cvx/Vag)Ordered By: Fadia Lucio on 11-09-2024 Thin Prep Pap Smear Comment . [facility] Comment on above: The Pap smear is [...] 11-09-2024 HPV Genotype Special Info Comment . [facility] Comment on above: Criteria not met, HP V Genotype not performed.Performed at: WB - [facility] [address] [id number] Director: Denisse Cheney MD, Phone: [phone] at: =G - [facility] [address] [id number] Director: Denisse Cheney MD, Phone: [phone] Detection in cervical specim en of any of human papilloma virus (HPV) 16, 18, 31, 33,Ordered By: Fadia Lucio on 11-09-2024 HPV 16+18+31+33+35+39+45+51+ 52+56+58+59+66+68 DNA Probe+sig amp Ql (Cvx) Negative Negative [facility] Comment on above: This nucleic acid am plification test detects fourteen high-risk HPV types (16,18,31,33,35,39,45,51,52,56,58,59,66,68)without differentiation. Eosinophil percentageOrdered By: Willie Adams on 11-09-2024 Eosinophils/100 WBC (Bld) 2.5 % 0-5 [facility] Erythrocyte distribution wid th ratioOrdered By: Willie Adams on 11-09-2024 Erythrocyte distribution width (RBC) [Ratio] 12.1 % 11.6-14.6 [facility] Erythrocyte distribution wid th standard deviationOrdered By: Willie Adams on 11-09-2024 Erythrocyte distribution width (RBC) [Entitic vol] 40.3 fL 35.1-43.9 [facility] Erythrocyte distribution width (RBC) [Ratio] 40.3 fl 35.1-43.9 [facility] GFR/1.73 sq M.predicted katt g non-blacks MDRD (S/P/Bld) [Vol rate/Area]Ordered By: Willie Adams on 11-09-2024 Estimated GFR (MDRD) Non-Af Amer 62 >60 [facility] Comment on above: mL/min/1.73m2 CKD-EP I Creatinine Equation (2020) Glomerular filtration rate ( GFR) estimation/1.73 sq m using serum, plasma, or whole bOrdered By: Willie Adams on 11-09-2024 GFR/1.73 sq M.predicted among non-blacks MDRD (S/P/Bld) [Vol rate/Area] 62 mL/min/{1.73_m2} >60 [facility] Comment on above: mL/min/1.73m2 CKD-EP I Creatinine Equation (2020) HPV 16+18+31+33+35+39+45+51+ 52+56+58+59+66+68 DNA Probe+sig amp Ql (Cvx)Ordered By: Fadia Lucio on 11-09-2024 Human Papillomavirus High Risk Negative Negative [facility] Comment on above: This nucleic acid am plification test detects fourteen high-risk HPV types (16,18,31,33,35,39,45,51,52,56,58,59,66,68)without differentiation. Hematocrit Auto (Bld) [Volum e fraction]Ordered By: Willie Adams on 11-09-2024 Hematocrit (Bld) [Volume fraction] 41.8 % 37-47 [facility] Hemoglobin A1c percentageOrd ered By: Willie Adams on 11-09-2024 HbA1c (Bld) [Mass fraction] 5.6 % Low >5.7 [facility] Hemoglobin measurementOrdere d By: Willie Adams on 11-09-2024 Hemoglobin (Bld) [Mass/Vol] 13.9 g/dL 12.0-15.0 [facility] Image-guided ThinPrep PapOrd ered By: Fadia Lucio on 11-09-2024 Pap Smear Note Comment . [facility] Comment on above: This liquid based Th inPrep(R) pap test was screened withthe use of an image guided system. Image-guided liquid-based Pa pOrdered By: Fadia Lucio on 11-09-2024 Pap Smear Diagnosis Comment . [facility] Comment on above: NEGATIVE FOR INTRAEP ITHELIAL LESION OR MALIGNANCY. Immature granulocytes/100 WB C Auto (Bld)Ordered By: Willie Adams on 11-09-2024 Immature granulocytes/100 WBC (Bld) 0.200 % 0.0-0.9 [facility] [facility] Comment on above: IG% - Immature Granu locytes (promyelocytes, myelocytes and metamyelocytes) > 1% indicates that a LEFT SHIFT is Present. LDL calc ser/plasOrdered By: Willie Adams on 11-09-2024 Cholesterol in LDL [Mass/Vol] 132 mg/dL [facility] Comment on above: Aaiyitsepu=030-826 m g/dL & Higher Sbpg=612 mg/dL or greater LDL Cholesterol, Calculated 132 mg/dL [facility] Comment on above: Anitejsmrq=774-783 m g/dL & Higher Gtwf=879 mg/dL or greater Laboratory - Chemistry and C hemistry - challengeOrdered By: Willie Adams on 11-09-2024 AST [Catalytic activity/Vol] 20 U/L <32 [facility] Laboratory - CytologyOrdered By: Fadia Lucio on 11-09-2024 Can Filling Room Sweeper Cyto stain Nom (Cvx/Vag) [ID] Comment . [facility] Comment on above: Tiffany Chavez ytotechnologist (ASCP) Laboratory - Miscellaneous t estsOrdered By: Fadia Lucio on 11-09-2024 Service comment (Unsp spec) [Interp] . . [facility] Lipid Profileon 11-09-2024 CHOL:HDL 3.55 Normal [facility] Comment on above: Performed By: #### L 506.0400, L100.0100, L500.4050, L500.4100, L501.9520 #### [facility] [address] [place], [address] Cholesterol [Mass/Vol] 223 mg/dL High <=200 [facility] Comment on above: Result Comment: Chol esterol level, Desirable <200 mg/dL Borderline high cholesterol 200-239 mg/dL High cholesterol >=240 mg/dL Recommendations of the NCEP Adult Treatment Panel for the following risk-cutoff thresholds for the [place] population. Performed By: #### L 506.0400, L100.0100, L500.4050, L500.4100, L501.9520 #### [facility] [address] [place], [address] Cholesterol in HDL [Mass/Vol] 63 mg/dL Normal [facility] Comment on above: Result Comment: Jacqueline onal Cholesterol Education Program (NCEP) guidelines: <40 mg/dL: Low HDL-cholesterol (major risk factor for CHD) >= 60 mg/dL: High HDL-cholesterol (negative risk factor for CHD) HDL-cholesterol is affected by a number of factors, e.g. smoking, exercise, hormones, sex and age. Performed By: #### L 506.0400, L100.0100, L500.4050, L500.4100, L501.9520 #### [facility] [address] [place], [address] Cholesterol in LDL [Mass/Vol] 132 mg/dL Normal [facility] Comment on above: Result Comment: Bord ehvqrm=369-912 mg/dL Higher Vwat=254 mg/dL or greater Performed By: #### L 506.0400, L100.0100, L500.4050, L500.4100, L501.9520 #### [facility] [address] [place], [address] Cholesterol in VLDL [Mass/Vol] 29 mg/dL Normal 5-40 [facility] Comment on above: Performed By: #### L 506.0400, L100.0100, L500.4050, L500.4100, L501.9520 #### [facility] [address] [place], [address] Triglyceride [Mass/Vol] 143 mg/dL Normal [facility] Comment on above: Result Comment: The drugs N-Acetylcysteine and Metamizole may falsely depress this assay. Normal range: <150 mg/dL Borderline High: 150-199 mg/dL High: 200-499 mg/dL Very High: >500 mg/dL Performed By: #### L 506.0400, L100.0100, L500.4050, L500.4100, L501.9520 #### [facility] [place], [address] Lymphocytes Auto (Unsp spec) [#/Vol]Ordered By: Willie Adams on 11-09-2024 Lymphocytes (Bld) [#/Vol] 1.89 10*3/uL 0.83-4.51 [facility] Lymphocytes/100 WBC Auto (Un sp spec)Ordered By: Willie Adams on 11-09-2024 Lymphocytes/100 WBC (Bld) 33.5 % 19-41 [facility] MCV (mean corpuscular volume ) determinationOrdered By: Willie Adams on 11-09-2024 MCV (RBC) [Entitic vol] 91.9 fL 81-99 [facility] Mean corpuscular hemoglobin (MCH) determinationOrdered By: josefort worthfransisca Adams on 11-09-2024 MCH (RBC) [Entitic mass] 30.5 pg 27.0-32.0 [facility] Mean corpuscular hemoglobin concentration (MCHC) determinationOrdered By: josefort worthfransisca Adams on 11-09-2024 MCHC (RBC) [Mass/Vol] 33.3 g/dL 32-36 [facility] Mean platelet volume determi nationOrdered By: Willie Adams on 11-09-2024 Platelet mean volume (Bld) [Entitic vol] 10.0 fL 6.2-12.0 [facility] Monocyte percentageOrdered B y: Willie Adams on 11-09-2024 Monocytes/100 WBC (Bld) 7.6 % 0-10 [facility] Neutrophil percentageOrdered By: [facility] Hospitalfransisca Adams on 11-09-2024 Neutrophils/100 WBC (Bld) 55.0 % 47-70 [facility] No Panel InformationOrdered By: Fadia Lucio on 11-09-2024 Pap Smear Specimen Adequacy Comment . [facility] Comment on above: Satisfactory for nicolas luation. Endocervical and/or squamous metaplasticcells (endocervical component) are present. Nucleated red blood cell per centageOrdered By: Willie Adams on 11-09-2024 Nucleated RBC/100 WBC (Bld) [Ratio] 0 % 0-5 [facility] Outside Production Inspector Office Visit Reporton 11-09-2024 Outside Production Inspector Office Visit Report [facility] [address], [address] [place] [address] OFFICE VISIT Date of Service: 11/09/24 MR#: [id number] Acct: [id number] Name: POLINA THOMSON Rep #: [id number] : 1965 Provider: NIKOLE Myles Age/Sex: 59/F Location: [facility] Status: Signed Intake Vital Signs 02/15/23 14:49 [...] Method room air 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 Is patient in pain?: No Allergies perfume Allergy (Verified 11/09/24 08:08) throat swelling Medications ???Medication ???Instructions ???Recorded ???Confirmed ???Type ibuprofen 600 mg tablet 600 mg PO Q6H PRN PRN Pain Score 0 02/05/20 11/09/24 Rx 1-05/25 #20 tabs mecobalamin (vitamin B12) 500 mcg mcg PO 09/08/24 11/09/24 History chewable tablet propranolol 60 mg capsule,24 60 mg PO QDAY 09/08/24 11/09/24 Hi story hr,extended release noszberm-iwj-gdecq ac 400 tab PO 11/08/24 11/09/24 History [...] mcg-zinc 5.5 cap PO 11/08/24 11/09/24 History ic-rxzmqu-joglbbl-ging er-herb capsule (Immune Support (vit c, d [...] No current occupational status: employed current occupation: [place] current occupational exposures/hazards: No pets and animals: [...] 1986 Selvin Unknown 1992 Vandana 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 She is here to establish her care. She reports over the past 2-3 months (more content not included)... Normal [facility] Platelet countOrdered By: Mike Adams on 11-09-2024 Platelets (Bld) [#/Vol] 242 10*3/uL 150-450 [facility] Potassium (Unsp spec) [Mass/ Vol]Ordered By: Willie Adams on 11-09-2024 Potassium [Moles/Vol] 4.5 mmol/L 3.3-5.1 [facility] Potassium measurement (mass/ volume)Ordered By: Willie Adams on 11-09-2024 Potassium (Unsp spec) [Mass/Vol] 4.5 mmol/L 3.3-5.1 [facility] RBC Auto (Bld) [#/Vol]Ordere d By: Willie Adams on 11-09-2024 RBC (Bld) [#/Vol] 4.55 10*6/uL 4.2-5.4 [facility] Screening total cholesterol/ high density lipoprotein (HDL) cholesterol ratioOrdered By: Willie Adams on 11-09-2024 Cholesterol.total/Choles terol in HDL [Mass ratio] 3.55 {ratio} [facility] Serum creatinine measurement (mass/volume)Ordered By: Willie Adams on 11-09-2024 Creatinine [Mass/Vol] 1.05 mg/dL 0.70-1.20 [facility] Serum globulin measurementOr dered By: Willie Adams on 11-09-2024 Globulin (S) [Mass/Vol] 2.7 g/dL 2.2-4.2 [facility] Serum glucose measurement (m ass/volume)Ordered By: Willie Adams on 11-09-2024 Glucose [Mass/Vol] 104 mg/dL High 70-99 [facility] Serum or plasma alanine oakley otransferase (ALT) measurementOrdered By: Willie Adams on 11-09-2024 ALT [Catalytic activity/Vol] 14 U/L <35 [facility] Serum or plasma albumin carlito urement (mass/volume)Ordered By: Willie Adams on 11-09-2024 Albumin [Mass/Vol] 4.4 g/dL 3.5-5.0 [facility] Serum or plasma albumin/glob ulin mass ratioOrdered By: Willie Adams 11-09-2024 Albumin/Globulin [Mass ratio] 1.7 {ratio} 0.9-2.4 [facility] Serum or plasma alkaline dez sphatase measurementOrdered By: Willie Adams on 11-09-2024 ALP [Catalytic activity/Vol] 92 U/L 35-104 [facility] Serum or plasma calcium carlito urement (mass/volume)Ordered By: Willie Adams 11-09-2024 Calcium [Mass/Vol] 9.5 mg/dL 7.6-11.0 [facility] Serum or plasma cholesterol in HDL measurement (mass/volume)Ordered By: Willie Adams 11-09-2024 Cholesterol in HDL [Mass/Vol] 63 mg/dL >40 [facility] Comment on above: National Cholesterol Education Program (NCEP) guidelines:<40 mg/dL: Low HDL-cholesterol (major risk factor for CHD)>= 60 mg/dL: High HDL-cholesterol (negative risk factor for CHD)HDL-cholesterol is affected by a number of factors, e.g. smoking, exercise, hormones, sex and age. Serum or plasma cholesterol measurement (mass/volume)Ordered By: Willie Adams on 11-09-2024 Cholesterol [Mass/Vol] 223 mg/dL High <201 [facility] Comment on above: Cholesterol level, D esirable <200 mg/dLBorderline high cholesterol 200-239 mg/dLHigh cholesterol >=240 mg/dLRecommendations of the NCEP Adult Treatment Panel for the following risk-cutoff thresholds for the [place] population. Serum or plasma urea nitroge n measurement (mass/volume)Ordered By: Willie Adams on 11-09-2024 Urea nitrogen [Mass/Vol] 16 mg/dL 4-19 [facility] Service comment (Unsp spec) [Interp]Ordered By: Fadia Lucio on 11-09-2024 Pap Smear Comment (3) . . [facility] Sodium levelOrdered By: Joaquin parkusama Angie on 11-09-2024 Sodium [Moles/Vol] 140 mmol/L 133-145 [facility] T4 Free Directon 11-09-2024 T4 FREE DIRECT 1.10 ng/dL Normal 0.76-1.46 [facility] Comment on above: Performed By: #### L 506.0400, L100.0100, L500.4050, L500.4100, L501.9520 ####[facility] [address] [place], [place], [id number] T4 freeOrdered By: Willie Adams on 11-09-2024 Free T4 [Mass/Vol] 1.10 ng/dL 0.76-1.46 [facility] TSH DL <= 0.005 mIU/L QnOrde red By: Willie Adams on 11-09-2024 Thyroid Stimulating Hormone (TSH) 3.490 uIU/mL 0.300-4.200 [facility] TSH Qn 3.490 uIU/mL 0.300-4.200 [facility] Thyroid Stim Hormone (TSH)on 11-09-2024 TSH 3.490 uIU/mL Normal 0.300-4.200 [facility] Comment on above: Performed By: #### L 506.0400, L100.0100, L500.4050, L500.4100, L501.9520 #### [facility] [address] [place], [place], [id number] Total proteinOrdered By: Ata millsfransisca Adams on 11-09-2024 Protein [Mass/Vol] 7.1 g/dL 5.9-8.4 [facility] Triglycerides measurementOrd ered By: Joaquinindrafransisca Culpjaidelsea on 11-09-2024 Triglyceride [Mass/Vol] 143 mg/dL <199 [facility] Comment on above: The drugs N-Acetylcy steine and Metamizole may falsely depress this assay. Normal range: <150 mg/dLBorderline High: 150-199 mg/dLHigh: 200-499 mg/dLVery High: >500 mg/dL White blood cell (WBC) count Ordered By: Willie Adams on 11-09-2024 WBC (Bld) [#/Vol] 5.6 10*3/uL 4.4-11.0 [facility] Internal Medicine Office Vis iton 11-08-2024 Internal Medicine Office Visit [facility] [address] [place] [address] [place] [address] OFFICE VISIT Date of Service: 11/08/24 MR#: [id number] Acct: [id number] Name: POLINA THOMSON Rep #: [id number] : 1965 Provider: Dr. 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 Abdominal Bloating, Constipation,Migraine Finance Officer Required: No Is patient in pain?: No Allergies perfume Allergy (Verified 11/08/24 17:37) throat swelling Medications ???Medication ???Instructions ???Recorded ???Confirmed ???Type ibuprofen 600 mg tablet 600 mg PO Q6H PRN PRN Pain Score 0 02/05/20 11/08/24 Rx 1-10/10 #20 tabs mecobalamin (vitamin B12) 500 mcg mcg PO 09/08/24 11/08/24 History chewable tablet propranolol 60 mg capsule,24 60 mg PO QDAY 09/08/24 11/08/24 Hi story hr,extended release ptbfncbs-bna-vqhwf ac 400 tab PO 11/08/24 11/08/24 History [...] mcg-zinc 5.5 cap PO 11/08/24 11/08/24 History fo-lojyjo-osqwxya-ging er-herb capsule (Immune Support (vit c, d and zinc)) [facility] Medical History (Updated 11/08/24 @ [...] No current occupational status: employed 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 Had previously followed up at the [facility]. She states that over the last 2 [...] after overdos (more content not included)... Normal [facility] Gastric Emptying Studyon Gastric Emptying Study [facility] Imaging Services [address] [place] [address] [id number] Gastric Emptying Study MR#: [id number] Acct: [id number] Name: POLINA THOMSON Rep #: [id number] : 1965 F 59 From: Ariel moody MD PCP: Dr. Willie Adams MD Status: REG CLI Study: Gastric Emptying Study Date of Exam: 10/04/24 Exam# [id number] Ordering Dr: Alma Melton PROCEDURE: GASTRIC EMPTYING [...] Study IMPRESSION: Normal gastric emptying. Reading Location: [id number] CC: Dr. Willie Adams MD; LETICIA Ham Material Handler 1St Shift: Signed Normal [facility] Gastroenterology Visit Repor ton 09-19-2024 Gastroenterology Visit Report [facility] [address] [place] [address] OFFICE VISIT Date of Service: 09/19/24 MR#: [id number] Acct: [id number] Name: POLINA THOMSON Rep #: [id number] : 1965 Provider: LETICIA Ham Age/Sex: 59/F Location[place] [facility] Status: Signed with Addenda ADDENDUM by LETICIA [...] of EGD and colonoscopy in 2019. Continues [facility] Medical History Vaginal delivery [place] [...] to the office today for establishment with [facility]. Pt has had GI issues for many [...] cramps, numb (more content not included)... [facility] ) POLINA THOMSON Barbara ([id number]) 1965 F Date Time Provider Department 06/26/24 8:20 AM ALEJANDRINA GRAHAM During your visit today, we recorded the following information about you: Pulse Respiration Blood pressure Weight 56/minute 16/minute 130/74 85.7 kg Alejandrina Graham MD 06/26/2024 1:57 PM Signed Reason [...] Noticed it first at the trip to [place] last year, the pain is in the [...] TRANSORAL DIAGNOSTIC 01/26/2019 EGD S BALLOON,UTERINE ABLATION [address] 1997 [place] FAMILY HISTORY Problem Relation Age of Onset [...] reviewed and discussed today Current Outpatient Medications: V-J4-lexj-poz-vmrut-sp ng-herb (IMMUNE SUPPORT, VIT C,D,ZINC,) 180 mg-10 mcg- 5.5 mg-150 mg cap Lactobacillus rhamnosus GG (CULTURELLE ORAL) bismuth subsalicylate (DIGESTIVE RELIEF ORAL) EWUMI-JUZYSLNNK-AYUECB IUM MISC propranolol ER (INDERAL LA) 60 [...] and joselin (more content not included)... Normal [facility] XR HIP IVONE 5V PEL+ AP/LAT [...] abnormality. 2. Hip joint spaces are maintained. Material Handler 1St Shift: PSCB Transcribe Date/Time: Jun 29 2024 11:23P Dictated by : CARLOS BASILIO MD This examination was interpreted and the report reviewed and electronically signed by: CARLOS BASILIO MD on Jun 29 2024 11:24PM EST [id number] Normal [facility] CBC W Auto Differential pane l (Bld)on 04-05-2024 Basophils (Bld) [#/Vol] 0.04 10*3/uL [facility] Basophils/100 WBC (Bld) 0.9 % C [facility] Differential cell count method Nom (Bld) Auto [facility] Eosinophils (Bld) [#/Vol] 0.09 10*3/uL [facility] Eosinophils/100 WBC (Bld) 2.1 % [facility] Erythrocyte distribution width (RBC) [Ratio] 11.9 % 11.5 - 15.0 % [facility] Hematocrit (Bld) [Volume fraction] 39.2 % 36.0 - 46.0 % [facility] Hemoglobin (Bld) [Mass/Vol] 13.2 g/dL 11.5 - 15.5 g/dL [facility] Immature granulocytes (Bld) [#/Vol] [facility] Immature granulocytes/100 WBC (Bld) 0.2 % [facility] Lymphocytes (Bld) [#/Vol] 1.48 10*3/uL [facility] Lymphocytes/100 WBC (Bld) 34.7 % [facility] MCH (RBC) [Entitic mass] 30.6 pg 26. 0 - 34.0 pg [facility] MCHC (RBC) [Mass/Vol] 33.7 g/dL 30.5 - 36.0 g/dL [facility] MCV (RBC) [Entitic vol] 90.7 fL 80.0 - 100.0 fL [facility] Monocytes (Bld) [#/Vol] 0.35 10*3/uL [facility] Monocytes/100 WBC (Bld) 8.2 % [facility] Neutrophils (Bld) [#/Vol] 2.29 10*3/uL [facility] Neutrophils/100 WBC (Bld) 53.9 % [facility] Nucleated RBC (Bld) [#/Vol] [facility] Nucleated RBC/100 WBC (Bld) [Ratio] 0.0 % /100 WBC [facility] Platelet mean volume (Bld) [Entitic vol] 9.9 fL 9.0 - 12.7 fL [facility] Platelets (Bld) [#/Vol] 223 10*3/uL [facility] RBC (Bld) [#/Vol] 4.32 10*6/uL 3.90 - 5.2 0 m/uL [facility] WBC (Bld) [#/Vol] 4.26 10*3/uL [facility] Basophils (Bld) [#/Vol] 0.04 10*3/uL Normal <0.11 [facility] Comment on above: Order Comment: Speci men Type: BLOOD SPECIMENOrdering Facility: [facility] Address: [address] [place] [address] Performed By: #### 5 7021-8 ####[facility] CHANUNIVERSITY HOSPITALS GEAUGA MEDICAL CENTERBrandon [id number] [place] [address] [place] Basophils/100 WBC (Bld) 0.9 % Normal [facility] Comment on above: Order Comment: Speci men Type: BLOOD SPECIMENOrdering Facility: [facility] Address: [facility] [place] [address] Performed By: #### 5 7021-8 ####[facility] MEDICAL CENTERLIA [id number] [place] [address] [place] Differential cell count method Nom (Bld) Auto Normal [facility] Comment on above: Order Comment: Speci men Type: BLOOD SPECIMENOrdering Facility: [facility] Address: [address] [place] [address] Performed By: #### 5 7021-8 ####[facility] INSTITUTENCJORDAN [facility] [id number] [place] [address] [place] Eosinophils (Bld) [#/Vol] 0.09 10*3/uL Normal <0.46 [facility] Comment on above: Order Comment: Speci men Type: BLOOD SPECIMENOrdering Facility: [facility] Address: [address] [place] [address] Performed By: #### 5 7021-8 ####[facility]ITAL[facility] [id number] [place] [address] [place] Eosinophils/100 WBC (Bld) 2.1 % Normal [facility] Comment on above: Order Comment: Speci men Type: BLOOD SPECIMENOrdering Facility: [facility] Address: [address] [place] [address] Performed By: #### 5 7021-8 ####[facility] RESEARCH INSTITUTENCA [id number] [place] [address] [place] Erythrocyte distribution width (RBC) [Ratio] 11.9 % Normal 11.5-15.0 [facility] Comment on above: Order Comment: Speci men Type: BLOOD SPECIMENOrdering Facility: [facility] Address: [address] [place] [address] Performed By: #### 5 7021-8 ####[facility] MILLWNCLIA [id number] [place] [address] [place] Hematocrit (Bld) [Volume fraction] 39.2 % Normal 36.0-46.0 [facility] Comment on above: Order Comment: Speci men Type: BLOOD SPECIMENOrdering Facility: [facility] Address: [address] [place] [address] Performed By: #### 5 7021-8 ####[facility] MED[facility] CENTERLIA [id number] [place] [address] [place] Hemoglobin (Bld) [Mass/Vol] 13.2 g/dL Normal 11.5-15.5 [facility] Comment on above: Order Comment: Speci men Type: BLOOD SPECIMENOrdering Facility: [facility] Address: [address] [place] [address] Performed By: #### 5 7021-8 ####[facility] CENTERLIA [id number] [place] [address] [place] Immature granulocytes (Bld) [#/Vol] 10*3/uL Normal <0.10 [facility] Comment on above: Order Comment: Speci men Type: BLOOD SPECIMENOrdering Facility: [facility] Address: [address] [place] [address] Performed By: #### 5 7021-8 ####[facility] CENTERLIA [id number] [place] [address] [place] Immature granulocytes/100 WBC (Bld) 0.2 % Normal [facility] Comment on above: Order Comment: Speci men Type: BLOOD SPECIMENOrdering Facility: [facility] Address: [address] [place] [address] Performed By: #### 5 7021-8 ####[facility] CENTERLIA [id number] [place] [address] [place] Lymphocytes (Bld) [#/Vol] 1.48 10*3/uL Normal 1.00-4.00 [facility] Comment on above: Order Comment: Speci men Type: BLOOD SPECIMENOrdering Facility: [facility] Address: [address] [place] [address] Performed By: #### 5 7021-8 ####[facility] [id number] [place] [address] [place] Lymphocytes/100 WBC (Bld) 34.7 % Normal [facility] Comment on above: Order Comment: Speci men Type: BLOOD SPECIMENOrdering Facility: [facility] Address: [address] [place] [address] Performed By: #### 5 7021-8 ####[facility] [id number] [place] [address] [place] MCH (RBC) [Entitic mass] 30.6 pg Normal 26.0-34.0 [facility] Comment on above: Order Comment: Speci men Type: BLOOD SPECIMENOrdering Facility: [facility] Address: [address] [place] [address] Performed By: #### 5 7021-8 ####[facility] [id number] [place] [address] [place] MCHC (RBC) [Mass/Vol] 33.7 g/dL Normal 30.5-36.0 [facility] Comment on above: Order Comment: Speci men Type: BLOOD SPECIMENOrdering Facility: [facility] Address: [address] [place] [address] Performed By: #### 5 7021-8 ####[facility] RES[facility]ARCH INSTITUTENCLI [id number] [place] [address] [place] MCV (RBC) [Entitic vol] 90.7 fL Normal 80.0-100.0 C [facility] Comment on above: Order Comment: Speci men Type: BLOOD SPECIMENOrdering Facility: [facility] Address: [address] [place] [address] Performed By: #### 5 7021-8 ####[facility] [id number] [place] [address] [place] Monocytes (Bld) [#/Vol] 0.35 10*3/uL Normal <0.87 [facility] Comment on above: Order Comment: Speci men Type: BLOOD SPECIMENOrdering Facility: [facility] Address: [address] [place] [address] Performed By: #### 5 7021-8 ####[facility] [id number] [place] [address] [place] Monocytes/100 WBC (Bld) 8.2 % Normal [facility] Comment on above: Order Comment: Speci men Type: BLOOD SPECIMENOrdering Facility: [facility] Address: [address] [place] [address] Performed By: #### 5 7021-8 ####[facility] [id number] [place] [address] [place] Neutrophils (Bld) [#/Vol] 2.29 10*3/uL Normal 1.45-7.50 [facility] Comment on above: Order Comment: Speci men Type: BLOOD SPECIMENOrdering Facility: [facility] Address: [address] [place] [address] Performed By: #### 5 7021-8 ####[facility] [id number] [place] [address] [place] Neutrophils/100 WBC (Bld) 53.9 % Normal [facility] Comment on above: Order Comment: Speci men Type: BLOOD SPECIMENOrdering Facility: [facility] Address: [address] [place] [address] Performed By: #### 5 7021-8 ####[facility] INSTITUTENCLIA [id number] [place] [address] [place] Nucleated RBC (Bld) [#/Vol] 10*3/uL Normal <0.01 [facility] Comment on above: Order Comment: Speci men Type: BLOOD SPECIMENOrdering Facility: [facility] Address: [address] [place] [address] Performed By: #### 5 7021-8 ####[facility] [id number] [place] [address] [place] Nucleated RBC/100 WBC (Bld) [Ratio] 0.0 /100 WBC Normal [facility] Comment on above: Order Comment: Speci men Type: BLOOD SPECIMENOrdering Facility: [facility] Address: [address] [place] [address] Performed By: #### 5 7021-8 ####[facility] INSTITUTENCLIA [id number] [place] [address] [place] Platelet mean volume (Bld) [Entitic vol] 9.9 fL Normal 9.0-12.7 [facility] Comment on above: Order Comment: Speci men Type: BLOOD SPECIMENOrdering Facility: [facility] Address: [address] [place] [address] Performed By: #### 5 7021-8 ####[facility] INSTITUTENCLIA [id number] [place] [address] [place] Platelets (Bld) [#/Vol] 223 10*3/uL Normal 150-400 [facility] Comment on above: Order Comment: Speci men Type: BLOOD SPECIMENOrdering Facility: [facility] Address: [address] [place] [address] Performed By: #### 5 7021-8 ####[facility] RES[facility] INSTITUTENCLI [id number] [place] [address] [place] RBC (Bld) [#/Vol] 4.32 10*6/uL Normal 3.90-5.20 [facility] Comment on above: Order Comment: Speci men Type: BLOOD SPECIMENOrdering Facility: [facility] Address: [address] [place] [address] Performed By: #### 5 7021-8 ####[facility] RES[facility] INSTITUTEMICKY [id number] [place] [address] [place] WBC (Bld) [#/Vol] 4.26 10*3/uL Normal 3.70-11.00 [facility] Comment on above: Order Comment: Speci men Type: BLOOD SPECIMENOrdering Facility: [facility] Address: [address] [place] [address] Performed By: #### 5 7021-8 ####[facility] INSTITUTENESSAA [id number] [place] [address] [place] CNOVon 04-05-2024 CNOV Office Visit (INTMWS ) POLNIA THOMSON ([id number]) 1965 F Date Time Provider Department 04/05/24 9:40 AM LAUREL MURRY INTMWS During your visit today, we recorded the following information about you: Pulse Blood pressure Weight 65/minute 122/76 84.4 kg Laurel Murry APRN.HYGIENE ASSISTANT 04/05/2024 10:11 AM Signed SUBJECTIVE Polina Cuevasire is a 59 year old female here [...] date. Medications Current Outpatient Medications Medication Sig U-M1-sthy-bxz-wujax-cf ng-herb (IMMUNE SUPPORT, VIT C,D,ZINC,) 180 mg-10 mcg- 5.5 mg-150 mg cap Take 2 capsules by mouth once daily. calcium cit/vit D3/isoflavon 2 (MENOPAUSE RELIEF ORAL) Take 2 capsules by mouth once daily. Lactobacillus rhamnosus GG (CULTURELLE ORAL) Take 1 capsule by mouth once daily. bismuth subsalicylate (DIGESTIVE RELIEF ORAL) Take 1 tablet by mouth two times a day. YRCCE-NQOZEDFOS-JHPBCD IUM MISC 1 tablet as needed. propranolol [...] F41.9, F32.A (more content not included)... Normal [facility] metabolic 2000 panelOrdered By: Fidelia Sidhu on 04-05-2024 Albumin [Mass/Vol] 4.4 g/dL 3.9 - 4.9 g/dL [facility] ALP [Catalytic activity/Vol] 86 U/L 34 - 123 U/L [facility] ALT [Catalytic activity/Vol] 12 U/L 7 - 38 U/L [facility] Anion gap [Moles/Vol] 10 mmol/L 8 - 15 mmol/L [facility] AST [Catalytic activity/Vol] 18 U/L 13 - 35 U/L [facility] Bilirubin [Mass/Vol] 0.4 mg/dL 0.2 - 1 .3 mg/dL [facility] Calcium [Mass/Vol] 9.8 mg/dL 8.5 - 10. 2 mg/dL [facility] Chloride [Moles/Vol] 105 mmol/L 98 - 10 7 mmol/L [facility] CO2 [Moles/Vol] 23 mmol/L 22 - 30 mmol/L [facility] Creatinine [Mass/Vol] 0.82 mg/dL 0.58 - 0.96 mg/dL [facility] GFR/1.73 sq M.predicted among non-blacks MDRD (S/P/Bld) [Vol rate/Area] 84 mL/min/{1.73_m2} - PINF [facility] Comment on above: Estimated Glomerular Filtration Rate [...] [Mass/Vol] 94 mg/dL 74 - 99 mg/dL [facility] Comment on above: The [place] Diabete s Association (ADA) provides guidance for [...] Standards of Medical Care in Diabetes 2016, [place] Diabetes Association. Diabetes Care. 2016.39(Suppl 1). Interpretation and review of laboratory results Normal [facility] Potassium [Moles/Vol] 4.5 mmol/L 3.7 - 5.1 mmol/L [facility] Protein [Mass/Vol] 6.8 g/dL 6.3 - 8.0 g/dL [facility] Sodium [Moles/Vol] 138 mmol/L 136 - 144 mmol/L [facility] Urea nitrogen [Mass/Vol] 17 mg/dL 7 - 21 mg/d L [facility] Comprehensive metabolic 2000 panelon 04-05-2024 Albumin [Mass/Vol] 4.4 g/dL Normal 3.9-4.9 [facility] Comment on above: Order Comment: Korey judge Type: BLOOD SPECIMENOrdering Facility: [facility] Address: [address] [place] [address] Performed By: #### 2 4323-8 ####[facility] CENTERLIA [id number] [place] [address] [place] ALP [Catalytic activity/Vol] 86 U/L Normal 34-123 [facility] Comment on above: Order Comment: Korey judge Type: BLOOD SPECIMENOrdering Facility: [facility] Address: [address] [place] [address] Performed By: #### 2 4323-8 ####[facility]ENTERWNCLIA [id number] [place] [address] [place] ALT [Catalytic activity/Vol] 12 U/L Normal 7-38 [facility] Comment on above: Order Comment: Megani alfie Type: BLOOD SPECIMENOrdering Facility: [facility] Address: [address] [place] [address] Performed By: #### 2 4323-8 ####[facility] CENTERWNCLIA [id number] [place] [address] [place] Anion gap [Moles/Vol] 10 mmol/L Normal 8-15 [facility] Comment on above: Order Comment: Speci men Type: BLOOD SPECIMENOrdering Facility: [facility] Address: [address] [place] [address] Performed By: #### 2 4323-8 ####[facility] DEBORAHNCLIA [id number] [place] [address] [place] AST [Catalytic activity/Vol] 18 U/L Normal 13-35 [facility] Comment on above: Order Comment: Speci men Type: BLOOD SPECIMENOrdering Facility: [facility] Address: [address] [place] [address] Performed By: #### 2 4323-8 ####[facility] GABYWNCLIA [id number] [place] [address] [place] Bilirubin [Mass/Vol] 0.4 mg/dL Normal 0.2-1.3 [facility] Comment on above: Order Comment: Speci men Type: BLOOD SPECIMENOrdering Facility: [facility] Address: [address] [place] [address] Performed By: #### 2 4323-8 ####[facility] GABYTAYLORNCLIA [id number] [place] [address] [place] Calcium [Mass/Vol] 9.8 mg/dL Normal 8.5-10.2 [facility] Comment on above: Order Comment: Speci men Type: BLOOD SPECIMENOrdering Facility: [facility] Address: [address] [place] [address] Performed By: #### 2 4323-8 ####[facility]ENTERWNCLIA [id number] [place] [address] [place] Chloride [Moles/Vol] 105 mmol/L Normal 98-107 [facility] Comment on above: Order Comment: Speci men Type: BLOOD SPECIMENOrdering Facility: [facility] Address: [address] [place] [address] Performed By: #### 2 4323-8 ####[facility]ENTERWNCLIA [id number] [place] [address] [place] CO2 [Moles/Vol] 23 mmol/L Normal 22-30 [facility] Comment on above: Order Comment: Speci men Type: BLOOD SPECIMENOrdering Facility: [facility] Address: [address] [place] [address] Performed By: #### 2 4323-8 ####[facility] RESEARCH INSTITUTENCLI [id number] [place] [address] [place] Creatinine [Mass/Vol] 0.82 mg/dL Normal 0.58-0.96 [facility] Comment on above: Order Comment: Speci men Type: BLOOD SPECIMENOrdering Facility: [facility] Address: [address] [place] [address] Performed By: #### 2 4323-8 ####[facility] [id number] [place] [address] [place] Creatinine and Glomerular filtration rate.predicted panel (S/P/Bld) 84 mL/min/1.73m??? Normal >=60 [facility] Comment on above: Order Comment: Speci men Type: BLOOD SPECIMENOrdering Facility: [facility] Address: [address] [place] [address] Result Comment: Whit mated Glomerular Filtration Rate [...] actual GFR. Performed By: #### 2 4323-8 ####[facility] CENTERWNCLIA [id number] [place] [address] [place] Glucose [Mass/Vol] 94 mg/dL Normal 74-99 [facility] Comment on above: Order Comment: Speci men Type: BLOOD SPECIMENOrdering Facility: [facility] Address: [address] [place], [place] [address] Result Comment: The [place] Diabetes Association (ADA) provides guidance for cutoff [...] Standards of Medical Care in Diabetes 2016, [place] Diabetes Association. Diabetes Care. 2016.39(Suppl 1). Performed By: #### 2 4323-8 ####[facility] RES[facility]ARCH INSTITUTEDILCIABrandon [id number] [place] [address] [place] Potassium [Moles/Vol] 4.5 mmol/L Normal 3.7-5.1 [facility] Comment on above: Order Comment: Megani men Type: BLOOD SPECIMENOrdering Facility: [facility] Address: [address] [place], [place] [address] Performed By: #### 2 4323-8 ####[facility] RES[facility] INSTITUTEMICKY [id number] [place] [address] [place] Protein [Mass/Vol] 6.8 g/dL Normal 6.3-8.0 [facility] Comment on above: Order Comment: Speci men Type: BLOOD SPECIMENOrdering Facility: [facility] Address: [address] [place], [place] [address] Performed By: #### 2 4323-8 ####[facility] RESEARCH INSTITUTEDILCIALIA [id number] [place] [address] [place] Sodium [Moles/Vol] 138 mmol/L Normal 136-144 [facility] Comment on above: Order Comment: Speci men Type: BLOOD SPECIMENOrdering Facility: [facility] Address: [address] [place] [address] Performed By: #### 2 4323-8 ####[facility] RESEARCH INSTITUTENCLIA [id number] [place] [address] [place] Urea nitrogen [Mass/Vol] 17 mg/dL Normal 7-21 [facility] Comment on above: Order Comment: Speci men Type: BLOOD SPECIMENOrdering Facility: [facility] Address: [address] [place] [address] Performed By: #### 2 4323-8 ####[facility] INSTITUTENCJORDAN [facility] [id number] [place] [address] [place] T3Free SerPl-mCncon 04-05-20 24 Free T3 [Mass/Vol] 2.7 pg/mL Normal 2.3-4.1 [facility] Comment on above: Order Comment: Speci men Type: BLOOD SPECIMENOrdering Facility: [facility] Address: [address] [place] [address] Performed By: #### 3 016-3, 3051-0, 3024-7 ####[facility] LABCLIA [id number] [place] [address] [place] T4 Free SerPl-mCncon 024 Free T4 [Mass/Vol] 1.1 ng/dL Normal 0.9-1.7 [facility] Comment on above: Order Comment: Speci men Type: BLOOD SPECIMENOrdering Facility: [facility] Address: [address] [place] [address] Performed By: #### 3 016-3, 3051-0, 3024-7 ####[facility] LABCLIA [id number] [place] [id number] [place] TSH SerPl-aCncon 04-05-2024 TSH Qn 2.180 m[IU]/L Normal 0.270-4.200 [facility] Comment on above: Order Comment: Speci men Type: BLOOD SPECIMENOrdering Facility: [facility] Address: [address] [place] [address] Performed By: #### 3 016-3, 3051-0, 3024-7 ####[facility] LABCLIA [id number] SUNDAYLarry MICANOPYDESK [id number] [place] US THYROID/PARATHYROIDon US THYROID/PARATHYROID * * *Final Report * * * DATE OF EXAM: Apr 05 2024 10:37AM [facility] 1048 - US THYROID/PARATHYROID / PROCEDURE REASON: [...] IMPRESSION: Normal sonographic appearance of the thyroid. Material Handler 1St Shift: MAXIM Transcribe Date/Time: Apr 05 2024 10:38A Dictated by : CRISTEL MURPHY MD This examination was interpreted and the report reviewed and electronically signed by: CRISTEL MURPHY MD on Apr 05 2024 10:43AM EST [id number] Normal [facility] US Thyroid glandon Radiology Study observation (narrative) [facility] IMPRESSION: Normal sonographic appearance of the thyroid. Material Handler 1St Shift: MAXIM Transcribe Date/Time: Apr 05 2024 10:38A Dictated by : CRISTEL MURPHY MD This examination was interpreted and the report reviewed and electronically signed by: CRISTEL MURPHY MD on Apr 05 2024 10:43AM EST DIVISION OF RADIOLOGY * * *Final Report* * * DATE OF EXAM: Apr 05 2024 10:37AM [facility] 1048 - US THYROID/PARATHYROID / PROCEDURE REASON: [...] DIVISION OF RADIOLOGY Provider, [facility] - 04/05/2024 * * *Final Report* * * DATE OF EXAM: Apr 05 2024 10:37AM [facility] 1048 - US THYROID/PARATHYROID / [...] IMPRESSION: Normal sonographic appearance of the thyroid. Material Handler 1St Shift: MAXIM Transcribe Date/Time: Apr 05 2024 10:38A Dictated by : CRISTEL MURPHY MD This examination was interpreted and the report reviewed and electronically signed by: CRISTEL MURPHY MD on Apr 05 2024 10:43AM PARAS [facility] US Thyroid glandOrdered By: Cc Provider on 04-05-2024 [facility] CNOVon 01-05-2024 CNOV Office Visit (INTMWS ) POLINA THOMSON ([id number]) 1965 F Date Time Provider Department 01/05/24 9:00 AM LAUREL MURRY During your visit today, we recorded the following information about you: Pulse Blood pressure Weight 59/minute 100/68 82.1 kg Laurel Murry APRN.CNP 01/05/2024 10:45 AM Signed SUBJECTIVE Polina Thomson [...] verbalizes understanding (more content not included)... Normal [facility] CNCOon 12-30-2023 CNCO HNO ID: [id number] Author: COORDINATOR, MAMMOGRAPHY, ? Service: ? Author Type: Physician Type: Letter Filed: 12/30/2023 08:36 Note Text: December 30, 2023 PID: [id number] Polina Thomson [address] [place] [address] Dear Ms. Thomson, We are pleased to [...] report will be kept on file at [facility] as part of your permanent medical record and are available for your continuing care. Thank you for allowing us to help in meeting your health care needs. Sincerely, Dr. Head Interpreting Radiologist [facility] (Normal over 40) Normal [facility] SCREENINGon 12-29-2023 [facility] SCREENING * * *Final Report* * * DATE OF EXAM: Dec 29 2023 9:08AM [facility] 0581 - [facility] SCREENING / PROCEDURE REASON: Encounter for screening mammogram for breast cancer * * * * Physician Interpretation * * * * RESULT: #[id number] - [facility] SCREENING BILATERAL DIGITAL SCREENING MAMMOGRAM WITH CAD: [...] mammogram, 11/23/2018 mammogram, and 11/23/2018 ultrasound - [facility]. The breasts are heterogeneously dense, which may obscure small masses. No significant masses, calcifications, or other findings are seen in either breast. There has been no significant interval change. IMPRESSION: NEGATIVE There is no mammographic evidence of malignancy. A 1 year screening mammogram is recommended. Alisa Head M.D., cp/marcos:12/30/2023 08:36:03 Protective Service Specialist(s): RT Ravindra(R)(M), [facility] letter sent: Normal over 40 [...] Health, Family Medicine, and Medical/Surgical Oncology, the [facility] has carefully reviewed the data and reached [...] their providers when to stop screening mammograms. Material Handler 1St Shift: Marcos Transcribe Date/Time: Dec 29 2023 8:57A Dictated by: ALISA HEAD MD This examination was interpreted and the report reviewed and electronically signed by: ALISA HEAD MD on Dec 30 2023 8:36AM EST [id number] Normal [facility] Lipid 1996 panelon 4 Cholesterol [Mass/Vol] 199 mg/dL Normal <200 [facility] Comment on above: Order Comment: Speci men Type: BLOOD SPECIMENOrdering Facility: [facility] Address: [address] [place] [address] Result Comment: <200 mg/dL, Desirable 200-239 mg/dL, Borderline high >239 mg/dL, High Performed By: #### 2 4331-1 ####[facility] LABCLIA [id number] [place] [address] [place] Cholesterol in HDL [Mass/Vol] 66 mg/dL Normal >39 [facility] Comment on above: Order Comment: Speci men Type: BLOOD SPECIMENOrdering Facility: [facility] Address: [address] [place] [address] Result Comment: 40-5 9 mg/dL, Acceptable >59 mg/dL, High: Negative risk factor for coronary heart disease <40 mg/dL, Low: Positive risk factor for coronary heart disease Performed By: #### 2 4331-1 ####[facility] LABCLIA [id number] [place] [address] [place] Cholesterol in LDL [Mass/Vol] 116 mg/dL High <100 [facility] Comment on above: Order Comment: Megani men Type: BLOOD SPECIMENOrdering Facility: [facility] Address: [address] [place] [address] Result Comment: <100 mg/dL, Optimal 100-129 mg/dL, Near optimal/above optimal 130-159 mg/dL, Borderline high 160-189 mg/dL, High >189 mg/dL, Very high Secondary prevention optimal LDL Cholesterol levels are recommended to be < 70 mg/dL Performed By: #### 2 4331-1 ####[facility] LABCLIA [id number] [place] [address] [place] Cholesterol in LDL/Cholesterol in HDL [Mass ratio] 1.76 {ratio} Normal <2.54 [facility] Comment on above: Order Comment: Speci men Type: BLOOD SPECIMENOrdering Facility: [facility] Address: [address] [place] [address] Result Comment: Refe rence: 1. National Cholesterol Education Program ATP III Guideline At-A-Glance Quick Desk Reference: National Heart, Lung, and Blood [place]. National Institutes of Health. 2001: NIH Publication No. 01-3305. 2. An International Atherosclerosis Society position paper: global recommendations for the management of dyslipidemia: executive summary, Atherosclerosis. 2014: 232(2):410-413. Performed By: #### 2 4331-1 ####[facility] LABCLIA [id number] [place] [address] [place] Cholesterol in VLDL [Mass/Vol] 17 mg/dL Normal <30 [facility] Comment on above: Order Comment: Speci men Type: BLOOD SPECIMENOrdering Facility: [facility] Address: [address] [place] [address] Performed By: #### 2 4331-1 ####[facility] LABCLIA [id number] [place] [address] [place] Cholesterol non HDL [Mass/Vol] 133 mg/dL High <130 [facility] Comment on above: Order Comment: Korey judge Type: BLOOD SPECIMENOrdering Facility: [facility] Address: [address] [place] [address] Result Comment: <130 mg/dL, Optimal 130-159 mg/dL, Near optimal/above optimal 160-189 mg/dL, Borderline high 190-219 mg/dL, High >219 mg/dL, Very high Secondary prevention optimal non HDL Cholesterol levels are recommended to be <100 mg/dL Performed By: #### 2 4331-1 ####[facility] LABCLIA [id number] [place] [address] [place] Cholesterol.total/Choles terol in HDL [Mass ratio] 3.02 {ratio} Normal <5.10 [facility] Comment on above: Order Comment: Korey judge Type: BLOOD SPECIMENOrdering Facility: [facility] Address: [address] [place] [address] Performed By: #### 2 4331-1 ####[facility] LABCLIA [id number] [place] [address] [place] FASTING TIME 13 hrs Normal [facility] Comment on above: Order Comment: Speci men Type: BLOOD SPECIMENOrdering Facility: [facility] Address: [address] [place] [address] Performed By: #### 2 4331-1 ####[facility] LABCLIA [id number] [address] [place] Triglyceride [Mass/Vol] 84 mg/dL Normal <150 [facility] Comment on above: Order Comment: Speci men Type: BLOOD SPECIMENOrdering Facility: [facility] Address: [address] [place] [address] Result Comment: <150 mg/dL, Normal 150-199 mg/dL, Borderline high 200-499 mg/dL, High >499 mg/dL, Very high Performed By: #### 2 4331-1 ####[facility] LABCLIA [id number] [address] [place] CBC W Auto Differential pane l (Bld)on 09-22-2023 Basophils (Bld) [#/Vol] 0.06 10*3/uL <0.11 k/uL [facility] Basophils/100 WBC (Bld) 1.2 % [facility] Differential cell count method Nom (Bld) Auto [facility] Eosinophils (Bld) [#/Vol] 0.14 10*3/uL <0.46 k/uL [facility] Eosinophils/100 WBC (Bld) 2.8 % [facility] Erythrocyte distribution width (RBC) [Ratio] 12.4 % 11.5 - 15.0 % [facility] Hematocrit (Bld) [Volume fraction] 41.3 % 36.0 - 46.0 % [facility] Hemoglobin (Bld) [Mass/Vol] 13.4 g/dL 11.5 - 15.5 g/dL [facility] Immature granulocytes (Bld) [#/Vol] <0.10 k/uL [facility] Immature granulocytes/100 WBC (Bld) 0.2 % [facility] Lymphocytes (Bld) [#/Vol] 1.68 10*3/uL 1.00 - 4.00 k/uL [facility] Lymphocytes/100 WBC (Bld) 33.5 % [facility] MCH (RBC) [Entitic mass] 30.0 pg 26. 0 - 34.0 pg [facility] MCHC (RBC) [Mass/Vol] 32.4 g/dL 30.5 - 36.0 g/dL [facility] MCV (RBC) [Entitic vol] 92.4 fL 80.0 - 100.0 fL [facility] Monocytes (Bld) [#/Vol] 0.50 10*3/uL <0.87 k/uL [facility] Monocytes/100 WBC (Bld) 10.0 % [facility] Neutrophils (Bld) [#/Vol] 2.62 10*3/uL 1.45 - 7.50 k/uL [facility] Neutrophils/100 WBC (Bld) 52.3 % [facility] Nucleated RBC (Bld) [#/Vol] <0.01 k/uL [facility] Nucleated RBC/100 WBC (Bld) [Ratio] 0.0 /100 WBC [facility] Platelet mean volume (Bld) [Entitic vol] 10.9 fL 9.0 - 12.7 fL [facility] Platelets (Bld) [#/Vol] 210 10*3/uL 150 - 400 k/uL [facility] RBC (Bld) [#/Vol] 4.47 10*6/uL 3.90 - 5.2 0 m/uL [facility] WBC (Bld) [#/Vol] 5.01 10*3/uL 3.70 - 11. 00 k/uL [facility] Basophils (Bld) [#/Vol] 0.06 10*3/uL Normal <0.11 [facility] Comment on above: Order Comment: Speci men Type: BLOOD SPECIMENOrdering Facility: [facility] Address: [address] [place] [address] Performed By: #### 5 7021-8 ####[facility] LABCLIA [id number] [place] [address] [place] Basophils/100 WBC (Bld) 1.2 % Normal C [facility] Comment on above: Order Comment: Speci men Type: BLOOD SPECIMENOrdering Facility: [facility] Address: [address] [place] [address] Performed By: #### 5 7021-8 ####[facility] LABCLIA [id number] [place] [address] [place] Differential cell count method Nom (Bld) Auto Normal [facility] Comment on above: Order Comment: Speci men Type: BLOOD SPECIMENOrdering Facility: [facility] Address: [address] [place] [address] Performed By: #### 5 7021-8 ####[facility] LABCLIA [id number] [place] [address] [place] Eosinophils (Bld) [#/Vol] 0.14 10*3/uL Normal <0.46 [facility] Comment on above: Order Comment: Speci men Type: BLOOD SPECIMENOrdering Facility: [facility] Address: [address] [place] [address] Performed By: #### 5 7021-8 ####[facility] LABCLIA [id number] [place] [address] [place] Eosinophils/100 WBC (Bld) 2.8 % Normal [facility] Comment on above: Order Comment: Speci men Type: BLOOD SPECIMENOrdering Facility: [facility] Address: [address] [place] [address] Performed By: #### 5 7021-8 ####[facility] LABCLIA [id number] [place] [address] [place] Erythrocyte distribution width (RBC) [Ratio] 12.4 % Normal 11.5-15.0 [facility] Comment on above: Order Comment: Speci men Type: BLOOD SPECIMENOrdering Facility: [facility] Address: [address] [place] [address] Performed By: #### 5 7021-8 ####[facility] LABCLIA [id number] [id number] [address] [place] Hematocrit (Bld) [Volume fraction] 41.3 % Normal 36.0-46.0 [facility] Comment on above: Order Comment: Speci men Type: BLOOD SPECIMENOrdering Facility: [facility] Address: [address] [place] [address] Performed By: #### 5 7021-8 ####[facility] LABCLIA [id number] [place] [address] [place] Hemoglobin (Bld) [Mass/Vol] 13.4 g/dL Normal 11.5-15.5 [facility] Comment on above: Order Comment: Speci men Type: BLOOD SPECIMENOrdering Facility: [facility] Address: [address] [place] [address] Performed By: #### 5 7021-8 ####[facility] LABCLIA [id number] [place] [address] [place] Immature granulocytes (Bld) [#/Vol] 10*3/uL Normal <0.10 [facility] Comment on above: Order Comment: Speci men Type: BLOOD SPECIMENOrdering Facility: [facility] Address: [address] [place] [address] Performed By: #### 5 7021-8 ####[facility] LABCLIA [id number] [place] [address] [place] Immature granulocytes/100 WBC (Bld) 0.2 % Normal [facility] Comment on above: Order Comment: Speci men Type: BLOOD SPECIMENOrdering Facility: [facility] Address: [address] [place] [address] Performed By: #### 5 7021-8 ####[facility] LABCLIA [id number] [place] [address] [place] Lymphocytes (Bld) [#/Vol] 1.68 10*3/uL Normal 1.00-4.00 [facility] Comment on above: Order Comment: Speci men Type: BLOOD SPECIMENOrdering Facility: [facility] Address: [address] [place] [address] Performed By: #### 5 7021-8 ####[facility] LABIA [id number] [place] [address] [place] Lymphocytes/100 WBC (Bld) 33.5 % Normal [facility] Comment on above: Order Comment: Speci men Type: BLOOD SPECIMENOrdering Facility: [facility] Address: [address] [place] [address] Performed By: #### 5 7021-8 ####[facility] LABIA [id number] [place] [address] [place] MCH (RBC) [Entitic mass] 30.0 pg Normal 26.0-34.0 [facility] Comment on above: Order Comment: Speci men Type: BLOOD SPECIMENOrdering Facility: [facility] Address: [address] [place] [address] Performed By: #### 5 7021-8 ####[facility] [id number] [place] [address] [place] MCHC (RBC) [Mass/Vol] 32.4 g/dL Normal 30.5-36.0 [facility] Comment on above: Order Comment: Speci men Type: BLOOD SPECIMENOrdering Facility: [facility] Address: [address] [place] [address] Performed By: #### 5 7021-8 ####[facility] LABIA [id number] [place] [address] [place] MCV (RBC) [Entitic vol] 92.4 fL Normal 80.0-100.0 C [facility] Comment on above: Order Comment: Speci men Type: BLOOD SPECIMENOrdering Facility: [facility] Address: [address] [place] [address] Performed By: #### 5 7021-8 ####[facility] LABIA [id number] [place] [address] [place] Monocytes (Bld) [#/Vol] 0.50 10*3/uL Normal <0.87 [facility] Comment on above: Order Comment: Speci men Type: BLOOD SPECIMENOrdering Facility: [facility] Address: [address] [place] [address] Performed By: #### 5 7021-8 ####[facility] LABCLIA [id number] [place] [address] [place] Monocytes/100 WBC (Bld) 10.0 % Normal [facility] Comment on above: Order Comment: Speci men Type: BLOOD SPECIMENOrdering Facility: [facility] Address: [address] [place] [address] Performed By: #### 5 7021-8 ####[facility] LABCLIA [id number] [place] [address] [place] Neutrophils (Bld) [#/Vol] 2.62 10*3/uL Normal 1.45-7.50 [facility] Comment on above: Order Comment: Speci men Type: BLOOD SPECIMENOrdering Facility: [facility] Address: [address] [place] [address] Performed By: #### 5 7021-8 ####[facility] LABCLIA [id number] [place] [address] [place] Neutrophils/100 WBC (Bld) 52.3 % Normal [facility] Comment on above: Order Comment: Speci men Type: BLOOD SPECIMENOrdering Facility: [facility] Address: [address] [place] [address] Performed By: #### 5 7021-8 ####[facility] LABCLIA [id number] [place] [address] [place] Nucleated RBC (Bld) [#/Vol] 10*3/uL Normal <0.01 [facility] Comment on above: Order Comment: Speci men Type: BLOOD SPECIMENOrdering Facility: [facility] Address: [address] [place] [address] Performed By: #### 5 7021-8 ####[facility] LABCLIA [id number] [place] [address] [place] Nucleated RBC/100 WBC (Bld) [Ratio] 0.0 /100 WBC Normal [facility] Comment on above: Order Comment: Speci men Type: BLOOD SPECIMENOrdering Facility: [facility] Address: [address] [place] [address] Performed By: #### 5 7021-8 ####[facility] LABCLIA [id number] [place] [address] [place] Platelet mean volume (Bld) [Entitic vol] 10.9 fL Normal 9.0-12.7 [facility] Comment on above: Order Comment: Speci men Type: BLOOD SPECIMENOrdering Facility: [facility] Address: [address] [place] [address] Performed By: #### 5 7021-8 ####[facility] LABCLIA [id number] [place] [address] [place] Platelets (Bld) [#/Vol] 210 10*3/uL Normal 150-400 [facility] Comment on above: Order Comment: Speci men Type: BLOOD SPECIMENOrdering Facility: [facility] Address: [address] [place] [address] Performed By: #### 5 7021-8 ####[facility] LABCLIA [id number] [place] [address] [place] RBC (Bld) [#/Vol] 4.47 10*6/uL Normal 3.90-5.20 [facility] Comment on above: Order Comment: Speci men Type: BLOOD SPECIMENOrdering Facility: [facility] Address: [address] [place] [address] Performed By: #### 5 7021-8 ####[facility] LABCLIA [id number] [place] [id number] [place] WBC (Bld) [#/Vol] 5.01 10*3/uL Normal 3.70-11.00 [facility] Comment on above: Order Comment: Speci men Type: BLOOD SPECIMENOrdering Facility: [facility] Address: [address] [place] [address] Performed By: #### 5 7021-8 ####[facility] LABCLIA [id number] [place] [id number] [place] CNOVon 09-22-2023 CNOV Office Visit (INTMWS ) BERTOPOLINA DIAZ ([id number]) 1965 F Date Time Provider Department 09/22/23 9:00 AM LAUREL MURRY INTMWS During your visit today, we recorded the following information about you: Pulse Respiration Blood pressure Weight 66/minute 18/minute 130/78 79.9 kg Laurel Murry APRN.HYGIENE ASSISTANT 09/22/2023 12:36 PM Signed SUBJECTIVE Polina Thomson [...] ICD10: Z51.8 (more content not included)... Normal [facility] Comprehensive metabolic 2000 panelon 09-22-2023 Albumin [Mass/Vol] 4.3 g/dL 3.9 - 4.9 g/dL [facility] ALP [Catalytic activity/Vol] 87 U/L 34 - 123 U/L [facility] ALT [Catalytic activity/Vol] 17 U/L 7 - 38 U/L [facility] Anion gap [Moles/Vol] 9 mmol/L 9 - 18 mmol/L [facility] AST [Catalytic activity/Vol] 24 U/L 13 - 35 U/L [facility] Bilirubin [Mass/Vol] 0.3 mg/dL 0.2 - 1 .3 mg/dL [facility] Calcium [Mass/Vol] 9.5 mg/dL 8.5 - 10. 2 mg/dL [facility] Chloride [Moles/Vol] 105 mmol/L 97 - 10 5 mmol/L [facility] CO2 [Moles/Vol] 26 mmol/L 22 - 30 mmol/L [facility] Creatinine [Mass/Vol] 0.79 mg/dL 0.58 - 0.96 mg/dL [facility] Estimated Glomerular Filtration Rate 88 mL/min/1.73m >=60 mL/min/1.73m [facility] Glucose [Mass/Vol] 82 mg/dL 74 - 99 mg/dL [facility] Potassium [Moles/Vol] 4.3 mmol/L 3.7 - 5.1 mmol/L [facility] Protein [Mass/Vol] 6.6 g/dL 6.3 - 8.0 g/dL [facility] Sodium [Moles/Vol] 140 mmol/L 136 - 144 mmol/L [facility] Urea nitrogen [Mass/Vol] 19 mg/dL 7 - 21 mg/d L [facility] Albumin [Mass/Vol] 4.3 g/dL Normal 3.9-4.9 [facility] Comment on above: Order Comment: Speci men Type: BLOOD SPECIMENOrdering Facility: [facility] Address: [address] [place] [address] Performed By: #### 2 4323-8 ####[facility] LABCLIA [id number] [place] [address] [place] ALP [Catalytic activity/Vol] 87 U/L Normal 34-123 [facility] Comment on above: Order Comment: Speci men Type: BLOOD SPECIMENOrdering Facility: [facility] Address: [address] [place] [address] Performed By: #### 2 4323-8 ####[facility] LABCLIA [id number] [place] [address] [place] ALT [Catalytic activity/Vol] 17 U/L Normal 7-38 [facility] Comment on above: Order Comment: Speci men Type: BLOOD SPECIMENOrdering Facility: [facility] Address: [address] [place] [address] Performed By: #### 2 4323-8 ####[facility] LABCLIA [id number] [place] [address] [place] Anion gap [Moles/Vol] 9 mmol/L Normal 9-18 [facility] Comment on above: Order Comment: Speci men Type: BLOOD SPECIMENOrdering Facility: [facility] Address: [address] [place] [address] Performed By: #### 2 4323-8 ####[facility] LABCLIA [id number] [place] [address] [place] AST [Catalytic activity/Vol] 24 U/L Normal 13-35 [facility] Comment on above: Order Comment: Speci men Type: BLOOD SPECIMENOrdering Facility: [facility] Address: [address] [place] [address] Performed By: #### 2 4323-8 ####[facility] LABCLIA [id number] [place] [address] [place] Bilirubin [Mass/Vol] 0.3 mg/dL Normal 0.2-1.3 [facility] Comment on above: Order Comment: Speci men Type: BLOOD SPECIMENOrdering Facility: [facility] Address: [address] [place] [address] Performed By: #### 2 4323-8 ####[facility] LABCLIA [id number] [place] [address] [place] Calcium [Mass/Vol] 9.5 mg/dL Normal 8.5-10.2 [facility] Comment on above: Order Comment: Speci men Type: BLOOD SPECIMENOrdering Facility: [facility] Address: [address] [place] [address] Performed By: #### 2 4323-8 ####[facility] LABCLIA [id number] [place] [address] [place] Chloride [Moles/Vol] 105 mmol/L Normal 97-105 [facility] Comment on above: Order Comment: Speci men Type: BLOOD SPECIMENOrdering Facility: [facility] Address: [address] [place] [address] Performed By: #### 2 4323-8 ####[facility] LABCLIA [id number] [place] [address] [place] CO2 [Moles/Vol] 26 mmol/L Normal 22-30 [facility] Comment on above: Order Comment: Speci men Type: BLOOD SPECIMENOrdering Facility: [facility] Address: [address] [place] [address] Performed By: #### 2 4323-8 ####[facility] LABIA [id number] [place] [address] [place] Creatinine [Mass/Vol] 0.79 mg/dL Normal 0.58-0.96 [facility] Comment on above: Order Comment: Speci men Type: BLOOD SPECIMENOrdering Facility: [facility] Address: [address] [place] [address] Performed By: #### 2 4323-8 ####[facility] LABIA [id number] [address] OF [facility] Creatinine and Glomerular filtration rate.predicted panel (S/P/Bld) 88 mL/min/1.73m??? Normal >=60 [facility] Comment on above: Order Comment: Speci men Type: BLOOD SPECIMENOrdering Facility: [facility] Address: [address] [place] [address] Result Comment: Whit mated Glomerular Filtration Rate [...] actual GFR. Performed By: #### 2 4323-8 ####[facility] LABIA [id number] [place] [id number] [place] Glucose [Mass/Vol] 82 mg/dL Normal 74-99 [facility] Comment on above: Order Comment: Speci men Type: BLOOD SPECIMENOrdering Facility: [facility] Address: [address] [place] [address] Result Comment: The [place] Diabetes Association (ADA) provides guidance for cutoff [...] Standards of Medical Care in Diabetes 2016, [place] Diabetes Association. Diabetes Care. 2016.39(Suppl 1). Performed By: #### 2 4323-8 ####[facility] LABCLIA [id number] [place] [address] [place] Potassium [Moles/Vol] 4.3 mmol/L Normal 3.7-5.1 [facility] Comment on above: Order Comment: Megani men Type: BLOOD SPECIMENOrdering Facility: [facility] Address: [address] [place], [place] [address] Performed By: #### 2 4323-8 ####[facility] LABCLIA [id number] [place] [address] [place] Protein [Mass/Vol] 6.6 g/dL Normal 6.3-8.0 [facility] Comment on above: Order Comment: Speci men Type: BLOOD SPECIMENOrdering Facility: [facility] Address: [address] [place], [place] [address] Performed By: #### 2 4323-8 ####[facility] LABCLIA [id number] [place] [address] [place] Sodium [Moles/Vol] 140 mmol/L Normal 136-144 [facility] Comment on above: Order Comment: Speci men Type: BLOOD SPECIMENOrdering Facility: [facility] Address: [address] [place] [address] Performed By: #### 2 4323-8 ####[facility] LABCLIA [id number] [place] [address] [place] Urea nitrogen [Mass/Vol] 19 mg/dL Normal 7-21 [facility] Comment on above: Order Comment: Speci men Type: BLOOD SPECIMENOrdering Facility: [facility] Address: [address] [place] [address] Performed By: #### 2 4323-8 ####[facility] LABCLIA [id number] [place] [address] [place] HbA1c (Bld)on 09-22-2023 Average glucose Estimated from glycated hemoglobin (Bld) [Mass/Vol] 111 mg/dL [facility] HbA1c (Bld) [Mass fraction] 5.5 % 4.3 - 5.6 % [facility] Average glucose Estimated from glycated hemoglobin (Bld) [Mass/Vol] 111 mg/dL Normal [facility] Comment on above: Order Comment: Speci men Type: BLOOD SPECIMENOrdering Facility: [facility] Address: [address] [place] [address] Result Comment: eAG: (Estimated average glucose) is a calculated value from HgbA1c and is veterans employment representative of the average blood glucose level in the last 2-3 month period. Performed By: #### 5 5454-3 ####[facility] LABIA [id number] [place] [address] [place] HbA1c (Bld) [Mass fraction] 5.5 % Normal 4.3-5.6 [facility] Comment on above: Order Comment: Speci men Type: BLOOD SPECIMENOrdering Facility: [facility] Address: [address] [place] [address] Result Comment: Amer [place] Diabetes Association guidelines indicate that patients with HgbA1c in the range 5.7-6.4% are at increased risk for development of diabetes, and intervention by lifestyle modification may be beneficial. HgbA1c greater or equal to 6.5% is considered diagnostic of diabetes. Performed By: #### 5 5454-3 ####[facility] LABCLIA [id number] [place] [address] [place] CBC W Auto Differential pane l (Bld)on 12-15-2022 Basophils (Bld) [#/Vol] 0.06 10*3/uL <0.11 k/uL [facility] Basophils/100 WBC (Bld) 1.2 % [facility] Differential cell count method Nom (Bld) Auto [facility] Eosinophils (Bld) [#/Vol] 0.08 10*3/uL <0.46 k/uL [facility] Eosinophils/100 WBC (Bld) 1.7 % [facility] Erythrocyte distribution width (RBC) [Ratio] 11.9 % 11.5 - 15.0 % [facility] Hematocrit (Bld) [Volume fraction] 42.3 % 36.0 - 46.0 % [facility] Hemoglobin (Bld) [Mass/Vol] 14.0 g/dL 11.5 - 15.5 g/dL [facility] Immature granulocytes (Bld) [#/Vol] <0.10 k/uL [facility] Immature granulocytes/100 WBC (Bld) 0.4 % [facility] Lymphocytes (Bld) [#/Vol] 1.51 10*3/uL 1.00 - 4.00 k/uL [facility] Lymphocytes/100 WBC (Bld) 31.3 % [facility] MCH (RBC) [Entitic mass] 29.9 pg 26. 0 - 34.0 pg [facility] MCHC (RBC) [Mass/Vol] 33.1 g/dL 30.5 - 36.0 g/dL [facility] MCV (RBC) [Entitic vol] 90.4 fL 80.0 - 100.0 fL [facility] Monocytes (Bld) [#/Vol] 0.29 10*3/uL <0.87 k/uL [facility] Monocytes/100 WBC (Bld) 6.0 % [facility] Neutrophils (Bld) [#/Vol] 2.87 10*3/uL 1.45 - 7.50 k/uL [facility] Neutrophils/100 WBC (Bld) 59.4 % [facility] Nucleated RBC (Bld) [#/Vol] <0.01 k/uL [facility] Nucleated RBC/100 WBC (Bld) [Ratio] 0.0 /100 WBC [facility] Platelet mean volume (Bld) [Entitic vol] 10.5 fL 9.0 - 12.7 fL [facility] Platelets (Bld) [#/Vol] 230 10*3/uL 150 - 400 k/uL [facility] RBC (Bld) [#/Vol] 4.68 10*6/uL 3.90 - 5.2 0 m/uL [facility] WBC (Bld) [#/Vol] 4.83 10*3/uL 3.70 - 11. 00 k/uL [facility] EMERGENCY REPORTon 2 EMERGENCY REPORT [facility] EMERGENCY ROOM REPORT NAME ACCOUNT SEX AGE ADMIT DISCHARGE PT MED. RECORD# NUMBER DATE DATE TYPE BERTO [id number] F 57 03/25/22 03/26/22 3 POLINA [id number] ROOM: ER DATE OF : 1965 DICTATING [...] and I believe that was done at [place]. It was not done here. She really [...] improved, clinically stable Page 1 of 2 POLINA THOMSON Emergency [...] Mando Coon DO 03/26/22 02:01 JOB #: [id number] Transcribed By: deuce 03/27/22 10:57 Electronically signed by: E-Sign: Dr. Mando Coon D.O. 03/29/22 19:20 Page 2 of 2 POLINA THOMSON Emergency Room Report Normal [facility] EMERGENCY REPORT [facility] EMERGENCY ROOM REPORT NAME ACCOUNT SEX AGE ADMIT DISCHARGE PT MED. RECORD# NUMBER DATE DATE TYPE BERTO [id number] F 57 03/25/22 03/26/22 3 POLINA [id number] ROOM: ER DATE OF : 1965 DICTATING [...] 10. Her physician is Dr. Graham in [place]. PAST MEDICAL HISTORY: Gastroesophageal reflux disease, irritable [...] motor or sensory deficits are noted. Hand medical insurance collector are strong and symmetric. SKIN: Skin is [...] Mando Coon DO 03/25/22 22:48 JOB #: [id number] Transcribed By: am 03/27/22 08:32 Electronically signed by: E-Sign: Dr. Mando Coon D.O. 03/29/22 19:19 Page 2 of 2 POLINA THOMSON Emergency Room Report Normal [facility] CBC + DIFFon 03-26-2022 Baso # 0.00 x10EE3/UL Normal 0.00 - 0.10 [facility] Comment on above: Performed By: #### 2 [id number] #### [facility],[address] [place] [address] Basophils/100 WBC (Bld) 0.2 % Normal 0.0 - 2.0 [facility] Comment on above: Performed By: #### 2 82302 #### [facility],[address] [place] [address] CBC + DIFF Normal [facility] Comment on above: Result Comment: CBC- COMPLETE BLOOD COUNT Performed By: #### 2 76449 #### [facility],[address] [place] [address] EO # 0.00 x10EE3/UL Normal 0.00 - 0.50 [facility] Comment on above: Performed By: #### 2 10248 #### [facility],[address] [place] [address] Eosinophils/100 WBC (Bld) 0.8 % Normal 0.0 - 7.0 [facility] Comment on above: Performed By: #### 2 68874 #### [facility],[address] [place], [place] [id number] Erythrocyte distribution width (RBC) [Ratio] 12.8 % Normal 12.0 - 15.6 [facility] Comment on above: Performed By: #### 2 42712 #### [facility],[address] [place] [address] Hematocrit (Bld) [Volume fraction] 42.2 % Normal 34.0 - 46.0 [facility] Comment on above: Performed By: #### 2 35944 #### [facility],[address] [place] [address] Hemoglobin (Bld) [Mass/Vol] 14.4 g/dL Normal 12.0 - 16.0 [facility] Comment on above: Performed By: #### 2 90494 #### [facility],[address] [place] [address] Lymph # 0.50 x10EE3/UL Low 0.80 - 2.80 [facility] Comment on above: Performed By: #### 2 96857 #### [facility],[address] [place], [place] [id number] Lymphocytes/100 WBC (Bld) 7.3 % Low 20.0 - 45.0 [facility] Comment on above: Performed By: #### 2 27725 #### [facility],[address] [place], [place] [id number] MANUAL DIFF N/A Normal [facility] Comment on above: Performed By: #### 2 06648 #### [facility],[address] [place] [address] 55670 MCH (RBC) [Entitic mass] 30 pg Normal 27 - 33 [facility] Comment on above: Performed By: #### 2 06405 #### [facility],[address] [place] [address] 86543 MCHC 34 X10 3 Normal 32 - 36 [facility] Comment on above: Performed By: #### 2 79223 #### [facility],[address] [place] [address] 50504 MCV (RBC) [Entitic vol] 89 fL Normal 80 - 99 [facility] Comment on above: Performed By: #### 2 42803 #### [facility],[address] [place] [address] 50504 [place] # 0.20 x10EE3/UL Normal 0.20 - 1.00 [facility] Comment on above: Performed By: #### 2 66219 #### [facility],[address] [place] [address] 04580 MONOS % 3.0 % Normal 0.0 - 10.0 [facility] Comment on above: Performed By: #### 2 66367 #### [facility],[address] [place] [address] 96373 Morphology Venancio (Bld) [Interp] N/A Normal [facility] Comment on above: Result Comment: {CD] Performed By: #### 2 48976 #### [facility],[address] [place] [address] 97884 Neut # 5.50 x10EE3/UL Normal 1.50 - 7.10 [facility] Comment on above: Performed By: #### 2 29790 #### [address] [address] Neutrophils/100 WBC (Bld) 88.7 % High 46.0 - 76.0 [facility] Comment on above: Performed By: #### 2 66823 #### [facility],[address] [place] [address] 47605 PLATELET 227 x10EE3/UL Normal 150 - 450 [facility] Comment on above: Performed By: #### 2 53947 #### [facility],[address] [place] [address] 51296 Platelet mean volume (Bld) [Entitic vol] 8.2 fL Normal 6.6 - 10.5 [facility] Comment on above: Result Comment: AUTO MATED DIFFERENTIAL Performed By: #### 2 62720 #### [facility],[address] [place] [address] 61242 RBC 4.76 x 10EE6/UL Normal 4.10 - 5.30 [facility] Comment on above: Performed By: #### 2 36769 #### [facility],[address] [place] [address] 71626 WBC 6.2 x 10EE3/UL Normal 4.5 - 10.8 [facility] Comment on above: Performed By: #### 2 12175 #### [facility],[address] [place] [address] 82090 CMP with eGFRon 03-26-2022 AGE 57 years Normal [facility] Comment on above: Performed By: #### 2 42939 #### [facility],[address] [place] [address] 98808 Albumin [Mass/Vol] 4.0 g/dL Normal 3.4 - 5.0 [facility] Comment on above: Performed By: #### 2 78047 #### [facility],[address] [place] [address] 10079 Albumin/Globulin [Mass ratio] 1.3 {ratio} Normal 0.9 - 1.6 [facility] Comment on above: Performed By: #### 2 78949 #### [facility],[address] [place] [address] 67938 ALK PHOS 88 U/L Normal 46 - 116 [facility] Comment on above: Performed By: #### 2 94132 #### [facility],[address] [place] [address] 53989 ALT [Catalytic activity/Vol] 28 U/L Normal 14 - 59 [facility] Comment on above: Performed By: #### 2 48749 #### [facility],[address] [place] [address] 01545 Anion gap [Moles/Vol] 12 mmol/L Normal 10 - 20 [facility] Comment on above: Performed By: #### 2 57438 #### [facility],[address] [place] [address] 98678 AST [Catalytic activity/Vol] 20 U/L Normal 13 - 39 [facility] Comment on above: Performed By: #### 2 73934 #### [facility],[address] [place] [address] 53072 B/C RATIO 17 ratio Normal 0 - 30 [facility] Comment on above: Performed By: #### 2 00217 #### [facility],[address] [place] [address] 10431 Bilirubin [Mass/Vol] 0.8 mg/dL Normal 0.2 - 1.0 [facility] Comment on above: Performed By: #### 2 92751 #### [facility],[address] [place] [address] 66637 Calcium [Mass/Vol] 9.0 mg/dL Normal 8.5 - 10.1 [facility] Comment on above: Performed By: #### 2 14797 #### [facility],[address] [place], [place] [address] Chloride [Moles/Vol] 101 mmol/L Normal 98 - 107 [facility] Comment on above: Performed By: #### 2 67729 #### [facility],[address] [place] [address] CMP with eGFR Normal [facility] Comment on above: Result Comment: COMP REHENSIVE METABOLIC PANEL Performed By: #### 2 90265 #### [facility],[address] [place] [address] 12810 CO2 [Moles/Vol] 27.8 mmol/L Normal 21.0 - 32.0 [facility] Comment on above: Performed By: #### 2 46445 #### [facility],[address] [place], [place] [address] Creatinine [Mass/Vol] 1.03 mg/dL High 0.55 - 1.02 [facility] Comment on above: Performed By: #### 2 92322 #### [address] [address] eGFR 56 ML/MINUTE Low 60 - 999 [facility] Comment on above: Performed By: #### 2 20776 #### [facility],[address] [place] [address] 40876 GFR/1.73 sq M.predicted among non-blacks MDRD (S/P/Bld) [Vol rate/Area] mL/min/{1.73_m2} Normal 60 - 999 [facility] Comment on above: Result Comment: ACCO RDING TO THE NATIONAL KIDNEY DISEASE EDUCATION PROGRAM(NKDE), A NORMAL eGFR IS A VALUE GREATER THAN OR EQUAL TO 60 ML/MIN/1.73 SQ METERS. CHRONIC KIDNEY DISEASE: <60mL/MIN/1.73 SQ METERS KIDNEY FAILURE: <15mL/MIN/1.73 SQ METERS THIS TEST SHOULD ONLY BE USED FOR PATIENTS 18 YEARS OF AGE AND OLDER. Performed By: #### 2 38283 #### [address] [address] Globulin (S) [Mass/Vol] 3.2 g/dL Normal 1.5 - 3.8 [facility] Comment on above: Performed By: #### 2 45224 #### [address] [address] Glucose [Mass/Vol] 107 mg/dL High 74 - 106 [facility] Comment on above: Performed By: #### 2 75712 #### [address] [address] Potassium [Moles/Vol] 3.8 mmol/L Normal 3.5 - 5.1 [facility] Comment on above: Performed By: #### 2 06741 #### [address] [address] Protein [Mass/Vol] 7.2 g/dL Normal 6.4 - 8.2 [facility] Comment on above: Performed By: #### 2 53036 #### [address] [address] Sodium [Moles/Vol] 137 mmol/L Normal 136 - 145 [facility] Comment on above: Performed By: #### 2 13539 #### [address] [address] Urea nitrogen [Mass/Vol] 18 mg/dL Normal 7 - 18 [facility] Comment on above: Performed By: #### 2 72073 #### [facility],[address] [place] [address] ABDOMEN/PELVIS Won 2021 CT ABDOMEN/PELVIS [address] [address] Patient: POLINA THOMSON Phone#: : 1965 Age: 57 Gender: F Pt. Type: ER Account: [id number] Location: 052 Ordering: MANDO COON Exam Date: 03/25/202223:15 Family Phys: Charge Code: [id number] Physician: [place] Order #: [id number] DLP Dose#: 14.20 PROCEDURE: CT ABDOMEN/PELVIS WITH [...] 57 Gender: F Pt. Type: ER Account: [id number] Location: 052 Ordering: MANDO COON Exam Date: 03/25/2022:15 Family Phys: Charge Code: [id number] Physician: [place] Order #: [id number] DLP Dose#: 14.20 BONES: Normal. No bony lesion or fracture. LUNG BASES: Normal. No visible pulmonary or pleural disease. OTHER: Negative. CONCLUSION: 1. Findings consistent with enteritis. 2. Horseshoe kidney is present. Dictated by: Alexandria Brennan MD on 03/26/2022 at 9:38 Approved by: Alexandria Brennan MD on 03/26/2022 at 9:41 Normal [facility] CT CHEST (PE PROTOCOL)on CT CHEST (PE PROTOCOL) [place] [address] Patient: POLINA THOMSON Phone#: : 1965 Age: 57 Gender: F Pt. Type: ER Account: [id number] Location: 052 Ordering: MANDO COON Exam Date: 03/25/2022:15 Family Phys: Charge Code: [id number] Physician: [place] Order #: [id number] DLP Dose#: 5.30 PROCEDURE: CT CHEST WITH [...] dissection. LUNGS: Normal. No visible pulmonary disease. NTAALIIA: Normal. No mass or adenopathy. MEDIASTINUM: Normal. [...] 57 Gender: F Pt. Type: ER Account: [id number] Location: [facility] Ordering: MANDO COON Exam Date: 03/25/2022/23:15 Family Phys: Charge Code: [id number] Physician: [place] Order #: [id number] DLP Dose#: 5.30 Approved by: Alexandria Brennan MD on 03/26/2022 at 9:44 Normal [facility] D-DIMER, QUANTITATIVEon 03-16 D-DIMER QUANT 242 ng/ml High 0 - 230 [facility] Comment on above: Performed By: #### 2 59885 #### [place] [id number] D-DIMER, QUANTITATIVE Normal [facility] Comment on above: Result Comment: PERCY T D-DIMER Performed By: #### 2 68070 #### [place] [id number] LIPASEon 03-26-2022 Lipase [Catalytic activity/Vol] 123.0 U/L Normal 73.0 - 393 [facility] Comment on above: Performed By: #### 2 61812 #### [place] [id number] NT-proBNPon 03-26-2022 Natriuretic peptide B (Bld) [Mass/Vol] 59 pg/mL Normal 0 - 125 [facility] Comment on above: Performed By: #### 2 46351 #### [facility],[address] [place], [place] [address] TROPONIN I, HIGH SENSITIVITY on 03-26-2022 HS TROPONIN 4.9 pg/mL Normal 0.0 - 51.4 [facility] Comment on above: Performed By: #### 2 06221 #### [facility],[address] [place] [address] URINALYSIS WITH MICROSCOPYon 03-26-2022 Amorphous NONE Normal [facility] Comment on above: Performed By: #### 2 48805 #### [facility],[address] [place] [address] Bacteria TRACE Normal [facility] Comment on above: Performed By: #### 2 13043 #### [facility],[address] [place], [place] [address] Bilirubin Ql (U) Negative Normal NORMAL: NEGATIVE [facility] Comment on above: Performed By: #### 2 01305 #### [facility],[address] [place], [place] [address] Casts NONE Normal [facility] Comment on above: Performed By: #### 2 96666 #### [facility],[address] [place], [place] [address] Clarity (U) CLEAR Normal NORMAL: CLEAR [facility] Comment on above: Performed By: #### 2 16744 #### [facility],[address] [place] [address] 49020 Color (U) p.yel Normal NORMAL: YELLOW [facility] Comment on above: Performed By: #### 2 18981 #### [facility],[address] [place] [address] 36788 Crystals LM Nom (Urine sed) NONE Normal [facility] Comment on above: Performed By: #### 2 13995 #### [facility],[address] [place] [address] 82975 Epi Cells FEW Normal [facility] Comment on above: Performed By: #### 2 13579 #### [facility],[address] [place] [address] 86496 Glucose Ql (U) NORM Normal NORMAL: NORMAL [facility] Comment on above: Performed By: #### 2 33757 #### [facility],[address] [place] [address] 24337 Hemoglobin Ql (U) Negative Normal NORMAL: NEGATIVE [facility] Comment on above: Performed By: #### 2 66586 #### [facility],[address] [place] [address] 87299 Ketone Negative Normal NORMAL: NEGATIVE [facility] Comment on above: Performed By: #### 2 24504 #### [facility],[address] [place] [address] 89837 Leukocytes 100 Abnormal NORMAL: NEGATIVE [facility] Comment on above: Result Comment: URIN E MICROSCOPIC Performed By: #### 2 56444 #### [facility],[address] [place] [address] 30580 Mucous NONE Normal [facility] Comment on above: Performed By: #### 2 50851 #### [facility],[address] [place] [address] 33446 Nitrite Ql (U) Negative Normal NORMAL: NEGATIVE [facility] Comment on above: Performed By: #### 2 41201 #### [facility],[address] [place] [address] 93345 pH (U) 7 [pH] Normal NORMAL: 5.0-8.0 [facility] Comment on above: Performed By: #### 2 48151 #### [facility],[address] [place] [address] 82636 Protein Ql (U) Negative Normal NORMAL: NEGATIVE [facility] Comment on above: Performed By: #### 2 30420 #### [facility],[address] [place] [address] 51643 Rbc NONE Normal 0-3 / hpf [facility] Comment on above: Performed By: #### 2 61019 #### [facility],[address] [place] [address] Sp [place] 1.010 Normal NORMAL: 1.010-1.030 [facility] Comment on above: Performed By: #### 2 66895 #### [facility],[address] [place] [address] Specimen Type UNSPECIFIED Normal [facility] Comment on above: Performed By: #### 2 86359 #### [facility],[address] [place] [address] URINALYSIS WITH MICROSCOPY Normal [facility] Comment on above: Result Comment: URIN ALYSIS Performed By: #### 2 58571 #### [facility],[address] [place] [address] Urobilinog NORM Normal NORMAL: NORMAL [facility] Comment on above: Performed By: #### 2 09420 #### [facility],[address] [place] [address] Wbc 1-5 Normal 0-5 / hpf [facility] Comment on above: Performed By: #### 2 08815 #### [facility],[address] [place], [place] [address] Yeast NONE Normal [facility] Comment on above: Performed By: #### 2 04401 #### [facility],[address] [place], [place] [id number] CORONAVIRUS PCR - [facility] 06-30-2021 SARS-CoV-2 (COVID-19) RNA VIJAY+probe Ql (Unsp spec) Negative Normal NORMAL: NEGATIVE [facility] Comment on above: Performed By: #### 2 71450 #### [facility],[address] [place], [place] [address] SEND TO ? YES Normal [facility] Comment on above: Result Comment: MICHELLE HOLLOWAY FAXED TO INFECTION [employer]. SARS-CoV-2 THIS TEST IS BEING USED UNDER THE FDA EUA PROCEDURE. THIS ASSAY HAS BEEN VALIDATED IN THE [facility] FOR USE WITH NASOPHARYNGEAL SPECIMENS IN [facility]. INTERPRETIVE DATA LABORATORY TEST RESULTS SHOULD ALWAYS [...] PUBLIC HEALTH AUTHORITIES. Performed By: #### 2 49505 #### [facility],[address] [place], [place] [address] Coronavirus 2019 1 COVID 19 Result 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 Abnormal Negative for COVID19 (SARS CoV2) by PCR. [facility] Comment on above: Result Comment: Posi tive for This test was developed and its performance characteristics determined by [facility] [place]. This test has been authorized by FDA [...] developed and its performance characteristics determined by [facility] [place]. This test has been authorized by FDA [...] developed and its performance characteristics determined by [facility] [place]. This test has been authorized by FDA [...] developed and its performance characteristics determined by [facility] [place]. This test has been authorized by FDA under an Emergency Use Authorization (EUA). This test has been validated in accordance with the FDA's Guidance Document Policy for Diagnostics Testing in Laboratories Certified to Perform High Complexity Testing under CLIA prior to Emergency use Authorization for Coronavirus Disease 2019 during the Public Health Emergency issued on October 14, 2019. COVID 19 Source 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 Normal [facility] Vital Signs Date Time Vital Sign Value Performing Clinician Facility 02-12-2025 08:01-0400 Body height 170.[address] Alejandrina Graham MD Work Phone: [facility] 02-12-2025 07:59-0400 Body mass index (BMI) [Ratio] 31.4 kg/m2 Dr. Alejandrina Graham MD Work Phone: [facility] 02-12-2025 07:59-0400 Body weight 90.[address] Alejandrina Graham MD Work Phone: [facility] 02-12-2025 07:59-0400 Diastolic blood pressure 71 mm[Hg] Dr. Alejandrina Graham MD Work Phone: [facility] 02-12-2025 07:59-0400 Systolic blood pressure 123 mm[Hg] Dr. Alejandrina Graham MD Work Phone: [facility] 01-30-2025 16:00-0400 Body temperature 97 [degF] Alma Atanasov PA Work Phone: [facility] 01-30-2025 16:00-0400 Diastolic blood pressure 67 mm[Hg] Alma Atanasov PA Work Phone: 5(778)021-321438 [place] [address] 01-30-2025 16:00-0400 Heart rate 50 /min Alma Atanasov PA Work Phone: 3(088)159-116838 [place] [address] 01-30-2025 16:00-0400 Respiratory rate 18 /min Alma Atanasov PA Work Phone: [facility] 01-30-2025 16:00-0400 SaO2% (BldA) [Mass fraction] 98 % Alma Atanasov PA Work Phone: 9(276)634-978238 [place] [address] 01-30-2025 16:00-0400 Systolic blood pressure 109 mm[Hg] Alma Atanasov PA Work Phone: 7(579)171-394238 [place] [address] 01-30-2025 12:39-0400 Body height 170.18 cm Alma Atanasov PA Work Phone: [facility] 01-30-2025 12:39-0400 Body mass index (BMI) [Ratio] 30.7 kg/m2 Alma Atanasov PA Work Phone: 2(015)081-018038 [place] [address] 01-30-2025 12:39-0400 Body weight 89 kg Alma Atanasov PA Work Phone: 5(865)122-050638 [place] [address] 01-12-2025 14:06-0400 Body height 170.[address] Alejandrina Graham MD Work Phone: 2(657)150-447257 [place] [address] 01-12-2025 14:06-0400 Body mass index (BMI) [Ratio] 31.5 kg/m2 Dr. Alejandrina Graham MD Work Phone: 9(617)129-797424 [place] [address] 01-12-2025 14:06-0400 Body weight 91.[address] Alejandrina Graham MD Work Phone: 4(152)430-400924 [place] [address] 01-12-2025 14:06-0400 Diastolic blood pressure 69 mm[Hg] Dr. Alejandrina Graham MD Work Phone: 7(111)168-324224 [place] [address] 01-12-2025 14:06-0400 Systolic blood pressure 115 mm[Hg] Dr. Alejandrina Graham MD Work Phone: 9(005)279-293024 [place] [address] 11-29-2024 07:14-0400 Body temperature 97.8 [degF] Dr. Alejandrina Graham MD Work Phone: 4(092)560-091824 [place] [address] 11-29-2024 07:14-0400 Diastolic blood pressure 65 mm[Hg] Dr. Alejandrina Graham MD Work Phone: 9(163)380-862124 [place] [address] 11-29-2024 07:14-0400 Heart rate 53 /min Dr. Alejandrina Graham MD Work Phone: 2(082)744-878724 [place] [address] 11-29-2024 07:14-0400 Respiratory rate 16 /min Dr. Alejandrina Graham MD Work Phone: 1(493)423-497024 [place] [address] 11-29-2024 07:14-0400 SaO2% (BldA) [Mass fraction] 94 % Dr. Alejandrina Graham MD Work Phone: 0(995)444-697824 [place] [address] 11-29-2024 07:14-0400 Systolic blood pressure 114 mm[Hg] Dr. Alejandrina Graham MD Work Phone: 6(095)687-440824 [place] [address] 11-29-2024 05:40-0400 Body height 170.[address] Alejandrina Graham MD Work Phone: 0(221)549-212524 [place] [address] 11-29-2024 05:40-0400 Body mass index (BMI) [Ratio] 31.1 kg/m2 Dr. Alejandrina Graham MD Work Phone: 1(115)602-454224 [place] [address] 11-29-2024 05:40-0400 Body weight [address] Alejandrina Graham MD Work Phone: 3(468)816-757424 [place] [address] 11-23-2024 15:14-0400 Body mass index (BMI) [Ratio] 30 kg/m2 Dr. Alejandrina Graham MD Work Phone: 3(750)978-206524 [place] [address] 11-23-2024 15:14-0400 Body weight 87.[address] Alejandrina Graham MD Work Phone: 3(077)613-217224 [place] [address] 11-23-2024 15:14-0400 Diastolic blood pressure 81 mm[Hg] Dr. Alejandrina Graham MD Work Phone: 3(047)080-506324 [place] [address] 11-23-2024 15:14-0400 Systolic blood pressure 133 mm[Hg] Dr. Alejandrina Graham MD Work Phone: 5(038)512-873224 [place] [address] 11-09-2024 08:06-0400 Body height 170.[address] Alejandrina Graham MD Work Phone: 4(141)783-488724 [place] [address] 11-09-2024 08:06-0400 Body mass index (BMI) [Ratio] 30.7 kg/m2 Dr. Alejandrina Graham MD Work Phone: 0(752)937-198924 [place] [address] 11-09-2024 08:06-0400 Body weight 89.[address] Alejandrina Graham MD Work Phone: 5(970)698-444724 [place] [address] 11-09-2024 08:06-0400 Diastolic blood pressure 80 mm[Hg] Dr. Alejandrina Graham MD Work Phone: 0(189)305-173524 [place] [address] 11-09-2024 08:06-0400 Systolic blood pressure 122 mm[Hg] Dr. Alejandrina Graham MD Work Phone: 5(365)879-925824 [place] [address] 11-08-2024 17:55-0400 Body mass index (BMI) [Ratio] 30.8 kg/m2 Dr. Alejandrina Graham MD Work Phone: 1(426)208-891224 [place] [address] 11-08-2024 17:55-0400 Body temperature 97.4 [degF] Dr. Alejandrina Graham MD Work Phone: 7(304)234-180457 [place] [address] 11-08-2024 17:55-0400 Body weight 89.[address] Alejandrina Graham MD Work Phone: 9(011)656-963124 [place] [address] 11-08-2024 17:55-0400 Diastolic blood pressure 80 mm[Hg] Dr. Alejandrina Graham MD Work Phone: 5(457)311-567724 [place] [address] 11-08-2024 17:55-0400 Heart rate 52 /min Dr. Alejandrina Graham MD Work Phone: 8(404)077-730024 [place] [address] 11-08-2024 17:55-0400 Respiratory rate 16 /min Dr. Alejandrina Graham MD Work Phone: 4(053)913-060724 [place] [address] 11-08-2024 17:55-0400 SaO2% (BldA) [Mass fraction] 99 % Dr. Alejandrina Graham MD Work Phone: 0(250)213-840624 [place] [address] 11-08-2024 17:55-0400 Systolic blood pressure 122 mm[Hg] Dr. Alejandrina Graham MD Work Phone: 5(026)164-580524 [place] [address] 06-26-2024 08:28-0500 Body mass index (BMI) [Ratio] 29.6 kg/m2 Alejandrina Graham MD Work Phone: [facility] 06-26-2024 08:28-0500 Body weight 85.73 kg Alejandrina Graham MD Work Phone: 3(312)294-43[address] [place] [address] 06-26-2024 08:28-0500 Diastolic blood pressure 74 mm[Hg] Alejandrina Graham MD Work Phone: [facility] 06-26-2024 08:28-0500 Heart rate 56 /min Alejandrina Graham MD Work Phone: [facility] 06-26-2024 08:28-0500 Respiratory rate 16 /min Alejandrina Graham MD Work Phone: [facility] 06-26-2024 08:28-0500 Systolic blood pressure 130 mm[Hg] Alejandrina Graham MD Work Phone: [facility] 04-05-2024 09:34-0400 Body mass index (BMI) [Ratio] 29.14 kg/m2 Laurel Jeanmarie PAY STATION ATTENDANT.HYGIENE ASSISTANT Work Phone: [facility] 04-05-2024 09:34-0400 Body weight 84.4 kg Laurel Jeanmarie PAY STATION ATTENDANT.HYGIENE ASSISTANT Work Phone: [facility] 04-05-2024 09:34-0400 Diastolic blood pressure 76 mm[Hg] Laurel Jeanmarie PAY STATION ATTENDANT.HYGIENE ASSISTANT Work Phone: [facility] 04-05-2024 09:34-0400 Heart rate 65 /min Laurel Jeanmarie PAY STATION ATTENDANT.HYGIENE ASSISTANT Work Phone: [facility] 04-05-2024 09:34-0400 SaO2% (BldA) [Mass fraction] 98 % Laurel Jeanmarie PAY STATION ATTENDANT.HYGIENE ASSISTANT Work Phone: [facility] 04-05-2024 09:34-0400 Systolic blood pressure 122 mm[Hg] Laurel Jeanmarie PAY STATION ATTENDANT.HYGIENE ASSISTANT Work Phone: [facility] 01-05-2024 08:50-0400 Body mass index (BMI) [Ratio] 28.35 kg/m2 Laurel Jeanmarie PAY STATION ATTENDANT.HYGIENE ASSISTANT Work Phone: [facility] 01-05-2024 08:50-0400 Body weight 82.1 kg Laurel Jeanmarie PAY STATION ATTENDANT.HYGIENE ASSISTANT Work Phone: [facility] 01-05-2024 08:50-0400 Diastolic blood pressure 68 mm[Hg] Laurel Jeanmarie PAY STATION ATTENDANT.HYGIENE ASSISTANT Work Phone: [facility] 01-05-2024 08:50-0400 Heart rate 59 /min Laurel Jeanmarie PAY STATION ATTENDANT.HYGIENE ASSISTANT Work Phone: [facility] 01-05-2024 08:50-0400 SaO2% (BldA) [Mass fraction] 98 % Laurel Jeanmarie PAY STATION ATTENDANT.HYGIENE ASSISTANT Work Phone: [facility] 01-05-2024 08:50-0400 Systolic blood pressure 100 mm[Hg] Laurel Jeanmarie PAY STATION ATTENDANT.HYGIENE ASSISTANT Work Phone: [facility] 09-22-2023 09:05-0500 Body weight 79.88 kg Laurel Jeanmarie PAY STATION ATTENDANT.HYGIENE ASSISTANT Work Phone: [facility] 09-22-2023 09:05-0500 Diastolic blood pressure 78 mm[Hg] Laurel Jeanmarie PAY STATION ATTENDANT.HYGIENE ASSISTANT Work Phone: [facility] 09-22-2023 09:05-0500 Heart rate 66 /min Laurel Jeanmarie PAY STATION ATTENDANT.HYGIENE ASSISTANT Work Phone: [facility] 09-22-2023 09:05-0500 Respiratory rate 18 /min Laurel Jeanmarie PAY STATION ATTENDANT.HYGIENE ASSISTANT Work Phone: [facility] 09-22-2023 09:05-0500 SaO2% (BldA) [Mass fraction] 99 % Laurel Jeanmarie PAY STATION ATTENDANT.HYGIENE ASSISTANT Work Phone: [facility] 09-22-2023 09:05-0500 Systolic blood pressure 130 mm[Hg] Laurel Jeanmarie PAY STATION ATTENDANT.HYGIENE ASSISTANT Work Phone: [facility] 06-23-2023 09:19-0500 Body weight 79.38 kg Laurel Jeanmarie PAY STATION ATTENDANT.HYGIENE ASSISTANT Work Phone: [facility] 06-23-2023 09:19-0500 Diastolic blood pressure 82 mm[Hg] Laurel Jeanmarie PAY STATION ATTENDANT.HYGIENE ASSISTANT Work Phone: [facility] 06-23-2023 09:19-0500 Heart rate 59 /min Laurel Jeanmarie PAY STATION ATTENDANT.HYGIENE ASSISTANT Work Phone: [facility] 06-23-2023 09:19-0500 SaO2% (BldA) [Mass fraction] 99 % Laurel Jeanmarie PAY STATION ATTENDANT.HYGIENE ASSISTANT Work Phone: [facility] 06-23-2023 09:19-0500 Systolic blood pressure 120 mm[Hg] Laurel Jeanmarie PAY STATION ATTENDANT.HYGIENE ASSISTANT Work Phone: [facility] 02-15-2023 14:13-0400 Body temperature 97.7 [degF] Laurel Jeanmarie PAY STATION ATTENDANT.HYGIENE ASSISTANT Work Phone: [facility] 02-15-2023 14:13-0400 Body weight 78.47 kg Laurel Jeanmarie PAY STATION ATTENDANT.HYGIENE ASSISTANT Work Phone: [facility] 02-15-2023 14:13-0400 Diastolic blood pressure 80 mm[Hg] Laurel Jeanmarie PAY STATION ATTENDANT.HYGIENE ASSISTANT Work Phone: [facility] 02-15-2023 14:13-0400 Heart rate 70 /min Laurel Jeanmarie PAY STATION ATTENDANT.HYGIENE ASSISTANT Work Phone: [facility] 02-15-2023 14:13-0400 Respiratory rate 16 /min Laurel Jeanmarie PAY STATION ATTENDANT.HYGIENE ASSISTANT Work Phone: [facility] 02-15-2023 14:13-0400 Systolic blood pressure 120 mm[Hg] Laurel Jeanmarie PAY STATION ATTENDANT.HYGIENE ASSISTANT Work Phone: [facility] 12-15-2022 13:16-0400 Body height 170.2 cm Doris Sorto MD Work Phone: [facility] 12-15-2022 13:16-0400 Body temperature 97.3 [degF] Doris Sorto MD Work Phone: [facility] 12-15-2022 13:16-0400 Body weight 81.92 kg Doris Sorto MD Work Phone: [facility] 12-15-2022 13:16-0400 Diastolic blood pressure 72 mm[Hg] Doris Sorto MD Work Phone: [facility] 12-15-2022 13:16-0400 Heart rate 72 /min Doris Sorto MD Work Phone: [facility] 12-15-2022 13:16-0400 SaO2% (BldA) [Mass fraction] 95 % Doris Sorto MD Work Phone: [facility] 12-15-2022 13:16-0400 Systolic blood pressure 130 mm[Hg] Doris Sorto MD Work Phone: [facility] 12-15-2022 10:52-0400 Body height 170.2 cm Alejandrina Graham MD Work Phone: [facility] 12-15-2022 10:52-0400 Body temperature 97.81 [degF] Alejandrina Graham MD Work Phone: [facility] 12-15-2022 10:52-0400 Body weight 81.65 kg Alejandrina Graham MD Work Phone: [facility] 12-15-2022 10:52-0400 Diastolic blood pressure 60 mm[Hg] Alejandrina Graham MD Work Phone: [facility] 12-15-2022 10:52-0400 Heart rate 60 /min Alejandrina Graham MD Work Phone: [facility] 12-15-2022 10:52-0400 Respiratory rate 14 /min Alejandrina Graham MD Work Phone: [facility] 12-15-2022 10:52-0400 SaO2% (BldA) [Mass fraction] 99 % Alejandrina Graham MD Work Phone: [facility] 12-15-2022 10:52-0400 Systolic blood pressure 130 mm[Hg] Alejandrina Graham MD Work Phone: [facility] 07-25-2022 08:30-0500 Body temperature 98.2 [degF] Esha Praisler-Wood PAY STATION ATTENDANT.HYGIENE ASSISTANT Work Phone: [facility] 07-25-2022 08:30-0500 Body weight 82.1 kg Esha Praisler-Wood PAY STATION ATTENDANT.HYGIENE ASSISTANT Work Phone: [facility] 07-25-2022 08:30-0500 Diastolic blood pressure 70 mm[Hg] Esha Praisler-Wood PAY STATION ATTENDANT.HYGIENE ASSISTANT Work Phone: [facility] 07-25-2022 08:30-0500 Heart rate 76 /min Esha Praisler-Wood PAY STATION ATTENDANT.HYGIENE ASSISTANT Work Phone: [facility] 07-25-2022 08:30-0500 Respiratory rate 16 /min Esha Praisler-Wood PAY STATION ATTENDANT.HYGIENE ASSISTANT Work Phone: [facility] 07-25-2022 08:30-0500 SaO2% (BldA) [Mass fraction] 96 % Esha Rollins PAY STATION ATTENDANT.HYGIENE ASSISTANT Work Phone: [facility] 07-25-2022 08:30-0500 Systolic blood pressure 122 mm[Hg] Esha Perry-Papo PAY STATION ATTENDANT.HYGIENE ASSISTANT Work Phone: [facility] 06-09-2022 08:05-0400 Body height 170.2 cm Alejandrina Graham MD Work Phone: [facility] 06-09-2022 08:05-0400 Body temperature 99.39 [degF] Alejandrina Graham MD Work Phone: [facility] 06-09-2022 08:05-0400 Body weight 81.19 kg Alejandrina Graham MD Work Phone: [facility] 06-09-2022 08:05-0400 Diastolic blood pressure 70 mm[Hg] Alejandrina Graham MD Work Phone: [facility] 06-09-2022 08:05-0400 Heart rate 67 /min Alejandrina Graham MD Work Phone: [facility] 06-09-2022 08:05-0400 Respiratory rate 12 /min Alejandrina Graham MD Work Phone: [facility] 06-09-2022 08:05-0400 SaO2% (BldA) [Mass fraction] 99 % Alejandrina Graham MD Work Phone: [facility] 06-09-2022 08:05-0400 Systolic blood pressure 110 mm[Hg] Alejandrina Graham MD Work Phone: [facility] Encounters Encounter Date Encounter Type Care Provider Facility Start: 02-12-2025 End: 02-12-[address] [facility] Start: 02-12-2025 End: 02-12-[address] Alejandrina Graham MD [facility] Start: 02-09-2025 Encounter for other preprocedural examination Gayatri Weinstein [facility] Start: 01-30-2025 End: 01-30-2025 Admission to same day surgery center Dr. Gayatri [facility] Start: 01-30-2025 End: 01-30-2025 ambulatory Alma KELLY Work Phone: [facility] Work Phone: Start: 01-30-2025 ambulatory Gayatri Weinstein Faci lity:[facility] Start: 01-30-2025 Non-patient / Non-visit Dr. Rosalina Weinstein MD -[facility] Start: 01-23-2025 End: 01-23-2025 ambulatory Alma KELLY Work Phone: [facility] Work Phone: Start: 01-23-2025 End: 01-23-2025 Patient encounter procedure Alma KELLY -[facility] Work Phone: Start: 01-22-2025 End: 01-23-2025 ambulatory Willie Adams Facility:[facility] Start: 01-22-2025 End: 01-22-2025 Non-patient / Non-visit Dr. Jamari Michael MD -[facility] Work Phone: Start: 01-12-2025 End: 01-12-[address] Alejandrina Graham MD Work Phone: [facility] Work Phone: Start: 01-12-2025 End: 01-12-[address] Gayatri Weinstein MD -[facility] Work Phone: Start: 12-28-2024 End: 12-28-2024 Patient encounter procedure Alma KELLY -[facility] Work Phone: Start: 12-28-2024 End: 12-28-[address] Alejandrina Graham MD Work Phone: [facility] Work Phone: Start: 12-13-2024 End: 12-13-2024 Patient encounter procedure Alma Melton PA -[facility] Work Phone: Start: 12-13-2024 End: 12-13-2024 ambulatory Alma Melton Facility:[facility] Start: 11-29-2024 ambulatory Adria Cisse Facility :[facility] Start: 11-29-2024 Non-patient / Non-visit Adria Huynh nd DO -[facility] Start: 11-29-2024 End: 11-29-2024 Admission to same day surgery center Adria Cisse DO -Endoscopy Work Phone: Start: 11-29-2024 End: 11-29-[address] Alejandrina Graham MD Work Phone: [facility] Work Phone: Start: 11-23-2024 End: 11-23-[address] Alejandrina Graham MD Work Phone: [facility] Work Phone: Start: 11-23-2024 End: 11-23-2024 Patient encounter procedure Shraon AGUSTIN -Laboratory, Specimen Work Phone: Start: 11-23-2024 End: 11-23-2024 Patient encounter procedure Sharon HARVEYC -[facility] Work Phone: Start: 11-23-2024 End: 11-23-2024 ambulatory [facility] Facility:[facility] Start: 11-23-2024 End: 11-23-2024 ambulatory [facility] Facility:[facility] Start: 11-13-2024 End: 11-13-[address] Alejandrina Graham MD Work Phone: [facility] Work Phone: Start: 11-13-2024 End: 11-13-2024 Patient encounter procedure Fadia LiuUltrasound, [facility] Work Phone: Start: 11-13-2024 End: 11-13-2024 ambulatory [facility] Facility:[facility] Start: 11-09-2024 End: 11-09-2024 Patient encounter procedure Fadia AGUSTIN [facility] Work Phone: Start: 11-09-2024 End: 11-09-2024 ambulatory [facility] Facility:[facility] Start: 11-09-2024 End: 11-09-[address] Alejandrina Graham MD Work Phone: [facility] Work Phone: Start: 11-09-2024 End: 11-09-[address] Willie Adams MD -Laboratory Work Phone: Start: 11-08-2024 End: 11-08-[address] Willie Adams MD -[facility] Work Phone: Start: 11-08-2024 End: 11-09-2024 ambulatory [facility] Facility:[facility] Start: 10-04-2024 End: 10-04-2024 Patient encounter procedure Alma KELLY -Nuclear Medicine, [facility] Work Phone: Start: 10-04-2024 End: 10-04-2024 ambulatory [facility] Facility:[facility] Start: 09-19-2024 End: 09-19-2024 Patient encounter procedure Alma KELLY -[facility] Work Phone: Start: 09-19-2024 End: 09-19-2024 ambulatory [facility] Facility:[facility] Start: 07-12-2024 ambulatory [facility] Facility:[facility] Start: 06-26-2024 End: 06-26-2024 ambulatory [facility] Facility:[facility] Start: 06-26-2024 End: 06-26-2024 Subsequent hospital visit by physician Paola [facility] Work Phone: Radiology Comment on above: Left hip pain [M25.5 52] Start: 06-26-2024 End: 06-26-2024 ambulatory ALEJANDRINA GRAHAM Facility:[facility] Start: 06-26-2024 End: 06-26-2024 Office outpatient visit 25 minutes Alejandrina Graham MD Work Phone: [facility] Comment on above: Trochanteric bursiti s of right hip (Primary Dx); Anxiety and depression; Left hip pain Start: 06-25-2024 End: 06-26-2024 Refill Laurel Jeanmarie PAY STATION ATTENDANT.HYGIENE ASSISTANT Work Phone: [facility] Comment on above: Refill Request Start: 04-05-2024 End: 04-05-2024 Subsequent hospital visit by physician Us [facility] Work Phone: Radiology Comment on above: Thyroid enlargement [E04.9] Start: 04-05-2024 End: 04-05-2024 [facility] LAUREL JEANMARIE Facility:[facility] Start: 04-05-2024 End: 04-05-2024 Patient encounter procedure Laurel Jeanmarie PAY STATION ATTENDANT.HYGIENE ASSISTANT Work Phone: [facility] Comment on above: Thyroid enlargement (Primary Dx); Weight gain; Anxiety and depression; Encounter for therapeutic drug monitoring Start: 01-17-2024 Refill Laurel Jeanmarie PAY STATION ATTENDANT.HYGIENE ASSISTANT Work Phone: [facility] Comment on above: Refill Request Start: 01-05-2024 End: 01-05-2024 [facility] LAUREL JEANMARIE Facility:[facility] Start: 01-05-2024 End: 01-05-2024 Patient encounter procedure Laurel Jeanmarie PAY STATION ATTENDANT.HYGIENE ASSISTANT Work Phone: [facility] Comment on above: Primary hypertension (Primary Dx); Anxiety and depression; Hyperlipidemia, unspecified hyperlipidemia type Start: 12-30-2023 Documentation procedure Mammog fco Coordinator [facility] Department Start: 12-30-2023 Letter encounter Mammography Coordinator [facility] Start: 12-29-2023 End: 12-29-2023 ambulatory ALEJANDRINA GANMARYJANE Facility:[facility] Start: 12-29-2023 End: 12-29-2023 Subsequent hospital visit by physician Screen Mammo [facility] Comment on above: Encounter for screen ing mammogram for breast cancer [Z12.31] Start: 11-24-2023 End: 11-24-2023 ambulatory [facility] Facility:[facility] Start: 11-16-2023 ambulatory Alejandrina Juarez Work Phone: Internal Medicine [facility] Start: 11-01-2023 E-mail encounter fro m caregiver Laurel Murry PAY STATION ATTENDANT.HYGIENE ASSISTANT Work Phone: [facility] Start: 11-01-2023 Patient encounter procedure Laurel Jeanmarie PAY STATION ATTENDANT.HYGIENE ASSISTANT Work Phone: [facility] Comment on above: Up coming appointmen t Start: 09-22-2023 End: 09-22-2023 ambulatory [facility] Facility:[facility] Start: 09-22-2023 End: 09-22-2023 Patient encounter procedure Laurel Jeanmarie PAY STATION ATTENDANT.HYGIENE ASSISTANT Work Phone: [facility] Comment on above: Primary hypertension (Primary Dx); Anxiety and depression; Moderate persistent asthma without complication; Vision disturbance; Encounter for therapeutic drug monitoring Start: 06-23-2023 End: 06-23-2023 Patient encounter procedure Laurel Jeanmarie PAY STATION ATTENDANT.HYGIENE ASSISTANT Work Phone: [facility] Comment on above: Anxiety and depressi on (Primary Dx); Panic attacks; Moderate persistent asthma without complication; Allergy to perfume; Pain in right leg Start: 02-15-2023 End: 02-15-2023 Patient encounter procedure Laurel Jeanmarie PAY STATION ATTENDANT.HYGIENE ASSISTANT Work Phone: [facility] Comment on above: Rash and nonspecific skin [...] Refill Alejandrina Juarez Work Phone: [facility] Comment on above: Refill Request Start: 08-26-2022 ambulatory Alejandrina Juarez Work Phone: [facility] [place] Start: 07-25-2022 End: 07-25-2022 Patient encounter procedure Esha Rollins APRNRICK Work Phone: [facility] Comment on above: Bacterial sinusitis (Primary Dx) Start: 07-10-2022 End: 07-10-2022 ambulatory Alejandrina Graham MD Work Phone: [facility] Comment on above: Anxiety and depressi on (Primary Dx); Belching; Constipation, unspecified constipation type Start: 07-10-2022 End: 07-10-2022 Telemedicine consultation with patient Alejandrina Graham MD Work Phone: [facility] Start: 06-21-2022 ambulatory Alejandrina Juarez Work Phone: [facility] Comment on above: Paternal aunt cancer information Start: 06-18-2022 ambulatory Alejandrina Juarez Work Phone: [facility] Comment on above: Flu vaccine Start: 06-16-2022 ambulatory Alejandrina Juarez Work Phone: [facility] Comment on above: New antidepressant i ssue Antidepressant [facility] Start: 06-09-2022 End: 06-09-2022 Patient encounter procedure Alejandrina Graham MD Work Phone: [facility] Comment on above: Anxiety and depressi on (Primary Dx); Special screening examination for viral disease; Screening for HIV (human immunodeficiency virus); Lipid screening; Encounter for screening examination for impaired glucose regulation and diabetes mellitus; Vitamin B12 deficiency; Gastroesophageal reflux disease without esophagitis; Need for vaccination Start: 03-25-2022 End: 03-26-2022 Emergency department patient visit MANDO DARNELL [facility] Start: 06-30-2021 End: 06-30-[address] [facility] ORR [facility] Procedures Date Procedure Procedure Detail Performing Clinician Start: 01-30-2025 Hysteroscopy Alma KELLY Work Phone: Start: 01-23-2025 Computed tomography of abdomen and pelvis with contrast Alma KELLY Work Phone: Start: 11-29-[address] Alejandrina andrews MD [...] Alejandrina Graham MD Work Phone: Start: 04-05-2024 Us soft tissue head & neck real time imge docm Laurel Murry PAY STATION ATTENDANT.HYGIENE ASSISTANT Work Phone: Start: 11-24-2023 Lipid 1996 panel - Serum or Plasma Laurel Jeanmarie PAY STATION ATTENDANT.HYGIENE ASSISTANT Work Phone: Start: 12-15-2022 Lipid 1996 panel - Serum or Plasma Laurel Jeanmarie PAY STATION ATTENDANT.HYGIENE ASSISTANT Work Phone: Start: 06-09-2022 PFIZER-BIONTXAware COVID-19 BIVALENT BOOSTER VACCINE, AGE 12+ YR Alejandrina Graham MD Work Phone: Start: 07-21-2021 Mammography Alejandrina Graham MD Work Phone: Start: 01-26-2019 Colonoscopy Alejandrina Graham MD Work Phone: H/O: tubal ligation Tubal ligati on status Dr. Alejandrina Graham MD Work Phone: Plan of Treatment Date Care Activity Detail Author Start: 01-26-2029 Colonoscopy COLONOSCOPY [facility] Start: 01-26-2029 COLORECTAL CANCER SCREENING COLORECTAL CANCER SCREENING [facility] Start: 01-26-2029 Screening for malign ant neoplasm of colon [facility] Start: 11-23-2028 Lipid panel Lipid Screening [facility] Start: 12-16-2027 Lipid 1996 panel - S diana or Plasma Lipid Screening [facility] Start: 12-16-2027 Lipid panel Lipid Screening [facility] Start: 12-16-2027 LIPID SCREEN LIPID SCREEN [facility] Start: 06-09-2027 LIPID SCREEN LIPID SCREEN [facility] Start: 04-05-2027 Diabetes Screening Diabetes Screenin g [facility] Start: 09-22-2026 Diabetes Screening Diabetes Screenin g [facility] Start: 12-15-2025 DIABETES SCREEN DIABETES SCREEN [facility] Start: 12-15-2025 Diabetes Screening Diabetes Screenin g [facility] Start: 06-26-2025 Annual PCP Team Neckties Painter jv Disease Visit Annual PCP Team Chronic Disease Visit [facility] Start: 06-09-2025 DIABETES SCREEN DIABETES SCREEN [facility] Start: 04-05-2025 Annual PCP Team Neckties Painter jv Disease Visit Annual PCP Team Chronic Disease Visit [facility] Start: 04-05-2025 BP Controlled (<130/80) BP Controlle d (<130/80) [facility] Start: 02-13-2025 MG Breast - bilatera l Screening [facility] Start: 01-30-2025 Ambulation without limitation [facility] Start: 01-30-2025 Medical regimen orde rs management [facility] Start: 01-30-2025 Medication education [facility] Start: 01-30-2025 Patient discharge [facility] Start: 01-30-2025 Procedure discontinued [facility] Start: 01-30-2025 Taking patient vital signs [facility] Start: 01-30-2025 Vital signs measurements [facility] Start: 01-30-2025 [facility] Start: 01-04-2025 Annual PCP Team Neckties Painter jv Disease Visit Annual PCP Team Chronic Disease Visit [facility] Start: 01-04-2025 BP Controlled (<130/80) BP Controlle d (<130/80) [facility] Start: 01-02-2025 MG Breast - bilatera l Screening [facility] Start: 12-28-2024 Screening for malign ant neoplasm of breast Mammogram Screening [facility] Start: 11-29-2024 Egd transoral biopsy single/multiple EGD BIOPSY SINGLE/MULTIPLE [facility] Start: 11-29-2024 Patient discharge [facility] Start: 10-02-2024 End: 10-02-2024 Patient encounter procedure 10/02/2024 9:40 AM EST Office Visit [facility] [address] [place] [address] Alejandrina Graham MD [address] [place] [address] 3 month follow up [facility] Comment on above: 3 month follow up Start: 09-22-2024 Annual PCP Team Neckties Painter jv Disease Visit Annual PCP Team Chronic Disease Visit [facility] Start: 07-05-2024 End: 07-05-2024 Patient encounter procedure 07/05/2024 8:40 AM EST Office Visit [facility] [address] [place] [address] Laurel Murry APRN.HYGIENE ASSISTANT [address] [place], [place] [id number] 6 month follow up [facility] Comment on above: 6 month follow up Start: 04-16-2024 Covid-19 Vaccine ( season) Covid-19 Vaccine ( season) [facility] Start: 04-16-2024 Influenza vaccination [facility] Start: 04-05-2024 End: 07-05-2024 Thyrotropin [Units/volume] in Serum or Plasma [facility] Work Phone: Comment on above: Expected: 04/05/2024 , Expires: 07/05/2024 Start: 04-05-2024 End: 07-05-2024 Thyroxine (T4) free [Mass/volume] in Serum or Plasma [facility] Comment on above: Expected: 04/05/2024 , Expires: 07/05/2024 Start: 04-05-2024 End: 07-05-2024 Triiodothyronine (T3) Free [Mass/volume] in Serum or Plasma [facility] Comment on above: Expected: 04/05/2024 , Expires: 07/05/2024 Start: 01-31-2024 LIPID SCREEN LIPID SCREEN [facility] Start: 01-05-2024 End: 01-05-2024 Patient encounter procedure 01/05/2024 9:00 AM EDT Office Visit [facility] [address] [place], [place] [id number] Laurel Murry APRN.HYGIENE ASSISTANT [address] [place] [address] Follow up/new med check [facility] Comment on above: Follow up/new med ch dagoberto Start: 11-16-2023 End: 02-15-2024 Lipid 1996 panel - Serum or Plasma LIP[facility] PANEL [facility] Routine Hyperlipidemia Expected: 11/16/2023, Expires: 02/15/2024 [facility] Work Phone: Comment on above: Expected: 11/16/2023 , Expires: 02/15/2024 Start: 11-11-2023 HPV TESTING HPV TESTING [facility] Start: 11-11-2023 PAP TESTING PAP TESTING [facility] Start: 11-11-2023 Screening for malign ant neoplasm of cervix [facility] Start: 04-16-2023 Covid-19 Vaccine ( season) Covid-19 Vaccine () [facility] Start: 04-16-2023 Influenza vaccination [facility] Start: 12-15-2022 End: 02-14-2023 Basic metabolic 2000 panel - Serum or Plasma [facility] Work Phone: Comment on above: Expected: 12/15/2022 , Expires: 02/14/2023 Start: 12-15-2022 End: 02-14-2023 Helicobacter pylori IgG Ab [Presence] in Serum or Plasma by Immunoassay [facility] Work Phone: Comment on above: Expected: 12/15/2022 , Expires: 02/14/2023 Start: 12-15-2022 End: 02-14-2023 Lipid 1996 panel - Serum or Plasma [facility] Work Phone: Comment on above: Expected: 12/15/2022 , Expires: 02/14/2023 Start: 08-16-2022 DEPRESSION ASSESSMENT DEPRESSION ASS ESSMENT [facility] Start: 07-21-2022 Mammography [facility] Start: 07-21-2022 Screening for malign ant neoplasm of breast Mammogram Screening [facility] Start: 06-09-2022 End: 08-09-2022 Basic metabolic 2000 panel - Serum or Plasma [facility] Work Phone: Comment on above: Expected: 06/09/2022 , Expires: 08/09/2022 Start: 06-09-2022 End: 08-09-2022 CBC W Auto Differential panel - Blood [facility] Work Phone: Comment on above: Expected: 06/09/2022 , Expires: 08/09/2022 Start: 06-09-2022 End: 08-09-2022 Cobalamin (Vitamin B12) [Mass/volume] in Serum or Plasma [facility] Work Phone: Comment on above: Expected: 06/09/2022 , Expires: 08/09/2022 Start: 06-09-2022 End: 08-09-2022 Hepatitis C virus Ab [Presence] in Serum [facility] Work Phone: Comment on above: Expected: 06/09/2022 , Expires: 08/09/2022 Start: 06-09-2022 End: 08-09-2022 HIV 1+2 Ab [Presence] in Serum or Plasma by Immunoassay [facility] Work Phone: Comment on above: Expected: 06/09/2022 , Expires: 08/09/2022 Start: 06-09-2022 End: 08-09-2022 Lipid 1996 panel - Serum or Plasma [facility] Work Phone: Comment on above: Expected: 06/09/2022 , Expires: 08/09/2022 Start: 04-16-2022 Influenza vaccination INFLUENZA (#1) [facility] Start: 10-25-2021 DIABETES SCREEN DIABETES SCREEN [facility] Start: 2017 SHINGRIX VACCINE (1 of 2) TOBIAS GRIX VACCINE (1 of 2) [facility] Start: 2012 COLOGUARD (FIT-DNA) COLOGUARD (FIT-D NA) [facility] Start: [address] COLONOGRAPHY [facility] Start: 2012 FECAL OCCULT BLOOD FECAL OCCULT BLOO D [facility] Start: 2012 Screening for malign ant neoplasm of colon [facility] Start: 2012 SIGMOIDOSCOPY SIGMOIDOSCOPY [facility] Start: 1986 Urine microalbumin profile [facility] Start: 1985 BP Controlled (<130/80) BP Controlle d (<130/80) [facility] Start: 1985 HEPATITIS C SCREENING HEPATITIS C SC REENING [facility] Start: 1985 HIV SCREENING HIV SCREENING [facility] Start: 1985 Spirometry Spirometry [facility] Start: 1973 Pneumococcal vaccination Pneum ococcal Vaccine (1 of 2 - PCV) [facility] Start: 1967 HEPATITIS B (1 of 3 - 3-dose series) HEPATITIS B (1 of 3 - 3-dose series) [facility] CT Abdomen and Pelvi s W contrast IV [facility] End: 09-25-2023 TORSTEN SCREENING TORSTEN SCREENING Radiology Routine Encounter for screening mammogram for breast cancer 1 Occurrences starting 08/26/2022 until 09/25/2023 [facility] Work Phone: Comment on above: 1 Occurrences starti ng 08/26/2022 until 09/25/2023 MG Breast - bilatera l Screening [facility] MG Breast Screening TORSTEN SCREENIN G Radiology Routine Encounter for screening mammogram for breast cancer 12/29/2023 9:08 AM EDT [facility] Work Phone: Patient referral [facility] Work Phone: US Pelvis [facility] End: 05-05-2025 US Thyroid gland US THYROID/PARATHYROID Radiology Routine Thyroid enlargement 1 Occurrences starting 04/05/2024 until 05/05/2025 [facility] Comment on above: 1 Occurrences starti ng 04/05/2024 until 05/05/2025 End: 07-26-2025 XR HIP BILATERAL 5V PEL/AP/LAT EACH HIP XR HIP BILATERAL 5V PEL/AP/LAT EACH HIP Radiology Routine Left hip pain 1 Occurrences starting 06/26/2024 until 07/26/2025 [facility] Work Phone: Comment on above: 1 Occurrences starti ng 06/26/2024 until 07/26/2025 XR HIP BILATERAL 5V PEL/AP/LAT EACH HIP XR HIP BILATERAL 5V PEL/AP/LAT EACH HIP Radiology Routine Left hip pain 06/26/2024 10:22 AM EST [facility] Immunizations Immunization Date Immunization Notes Care Provider [facility] 07-11-2024 influenza, seasonal, injectable, preservative free Dr. Alejandrina Graham MD Work Phone: [facility] 06-18-2022 influenza, seasonal, injectable Alejandrina Graham MD Work Phone: [facility] Work Phone: 06-18-2022 influenza virus vaccine, unspecified formulation Laurel Murry APRN.CNP Work Phone: [facility] 06-09-2022 COVID-19 booster vaccine, age 12+ yr, bivalent (PFIZER-BIONTXAware) Alejandrina Graham MD Work Phone: [facility] Work Phone: 06-12-2021 influenza, seasonal, injectable Alejandrina Graham MD Work Phone: [facility] Work Phone: 12-11-2020 COVID-19 original vaccine, full dose, monovalent (MODERNBrandon) Alejandrina Graham MD Work Phone: [facility] 11-14-2020 COVID-19 original vaccine, full dose, monovalent (MODERNA) Alejandrina Graham MD Work Phone: [facility] 10-31-2013 hepatitis B vaccine, adult dosage Dr. Alejandrina Graham MD Work Phone: [facility] 09-23-2011 hepatitis B vaccine, adult dosage Dr. Alejandrina Graham MD Work Phone: [facility] 01-09-2012 hepatitis B vaccine, adult dosage Dr. Alejandrina Graham MD Work Phone: [facility] Payers Date Payer Category Payer Self-pay 2024 Unknown [id number] 2023 Unknown [id number] 2022 Unknown [id number] 1965 Unknown [id number] 2.16.84 [id number] 1965 Unknown [id number] 2.16.84 [id number] Self-pay [id number] Unknown [id number] Unknown [id number] Unknown [id number] 2.16.8 [id number] Unknown [id number] 2.16.8 40.1.121069.3.579.2.462 Unknown [id number] 2.16.8 40.1.718029.3.579.2.462 Unknown [id number] 2.16.8 40.1.040074.3.579.2.462 Unknown [id number] 2.16.8 40.1.938016.3.579.2.462 Unknown [id number] 2.16.8 40.1.690637.3.579.2.462 Unknown [id number] 2.16.8 40.1.082918.3.579.2.462 Unknown [id number] 2.16.8 40.1.584425.3.579.2.462 Unknown [id number] 2.16.8 40.1.470583.3.579.2.462 Unknown [id number] 2.16.8 40.1.450034.3.579.2.462 Unknown [id number] 2.16.8 40.1.521302.3.579.2.462 Unknown [id number] 2.16.8 40.1.685919.3.579.2.462 Unknown [id number] 2.16.8 40.1.856936.3.579.2.462 Unknown [id number] 2.16.8 40.1.869584.3.579.2.462 Unknown [id number] 2.16.8 40.1.121831.3.579.2.462 Unknown [id number] 2.16.8 40.1.487970.3.579.2.462 Unknown [id number] 2.16.8 40.1.203399.3.579.2.462 Unknown [id number] 2.16.8 40.1.056597.3.579.2.462 Unknown [id number] 2.16.8 40.1.585460.3.579.2.462 Unknown [id number] 2.16.8 40.1.545241.3.579.2.462 Social History Date Type Detail Facility Start: 06-09-2022 End: 01-17-2025 Tobacco smoking status NHIS Ex-smoker [facility] Work Phone: History of tobacco use Current smoker [facility] Work Phone: Start: 06-09-2022 Tobacco use and exposure Smokeless tobacco non-user [facility] Work Phone: Start: 06-09-2022 End: 04-05-2024 Alcohol intake Ex-drinker (finding) [facility] Start: 06-08-2022 End: 07-09-2022 History SDOH Alcohol Frequency 2 [facility] Start: 06-08-2022 End: 07-09-2022 History SDOH Alcohol Std Drinks 1 [facility] Start: 06-08-2022 End: 07-09-2022 History SDOH Social Connections Phone 3 [facility] Start: 06-08-2022 History SDOH Physica l Activity MPS 0 [facility] Start: 06-08-2022 End: 07-09-2022 History SDOH Stress 5 [facility] Start: 1965 Sex Assigned At Female [facility] Start: 05-30-2022 End: 06-09-2022 Exposure to SARS-CoV-2 (event) Not sure [facility] Work Phone: Start: 07-09-2022 History SDOH Social Connections Meetings 98 [facility] Start: 07-09-2022 End: 06-23-2023 History of Social function [facility] Start: 07-09-2022 End: 06-23-2023 Social connection and isolation panel [facility] Do you belong to any clubs or organizations such as zoroastrian groups, unions, fraternal or athletic groups, or school groups? Yes [facility] How often do you att end meetings of the clubs or organizations you belong to? Patient refused [facility] Are you now , , , , never or living with a partner? [facility] How often to you hav e a drink containing alcohol? Monthly or less [facility] How many standard drinks containing alcohol do you have on a typical day? 1 or 2 [facility] How often do you hav e 6 or more drinks on 1 occasion? Never [facility] How hard is it for y ou to pay for the very basics like food, housing, medical care, and heating Somewhat hard [facility] Do you feel stress - tense, restless, nervous, or anxious, or unable to sleep at night because your mind is troubled all the time - these days [OSQ] Only a little [facility] (I/We) worried chuck er (my/our) food would run out before (I/we) got money to buy more. Sometimes true [facility] The food that (I/we) bought just didn't last, and (I/we) didn't have money to get more. Never true [facility] At any time in the p ast 12 months, were you homeless or living in senior care [including now]? No [facility] Start: 01-26-2019 Gender identity Identifies as female gender (finding) [facility] Start: 01-26-2019 Sexual orientation Heterosexual (libia daniels) [facility] Do you feel stress - tense, restless, nervous, or anxious, or unable to sleep at night because your mind is troubled all the time - these days [OSQ] To some extent [facility] Start: 02-05-2020 None None [facility] Start: 02-05-2020 Spouse/ Significant Other Spouse/ Significant Other [facility] Start: 11-14-2024 End: 11-29-2024 Sex Female (finding) [facility] NEGATED: Highlighted row Not [facility] Medical Equipment Procedure Code Equipment Code Equipment Origin al Text Equipment Identifier Dates 1 Each once ever y month. Start: 03-01-2020 End: 06-09-2022 Comment on above: 1 Each once every mo nth. Goals Date Patient Goal Desired Activity /State Mental Status Date Assessment Result Facility 01-30-2025 Cognitive function Level Of Cons ciousness Follows Commands;Drowsy [facility] Work Phone: 01-30-2025 Cognitive function Voice/Name [facility] Work Phone: 11-29-2024 Cognitive function Voice/Name [facility] Work Phone: Clinical Notes 06-09-2022 to 01-30-2025 Note Date & Type Note Facility 01-30-2025 Consult note [facility] 01-30-2025 Discharge summary [facility] 01-30-2025 History and physical note Note Date/Time January 30, 2025 2:23pm [facility] Medical Records Department [address] [place] [address] History & Physical Exam 01/30/25 0735 MR#: [id number] Acct: [id number] Name: POLINA THOMSON Rep #:[id number] : [id number] From: Gayatri balderas MD PCP: Dr. Willie Adams MD Status:R [facility] Location: [place] [address] History and Physical Date of Admission: 01/30/25 Intake Vital Signs 11/29/2504:40 01/12/2514:06 Height 5 ft 7 in 5 ft 7 in Weight: 201 lb 4 oz BMI 31.5 BP 115/69 Intake Visit Reasons: Consult D&C Finance Officer Required: No Is patient in pain?: Yes (on and off pain, ) Allergies perfume Allergy (Verified 01/12/25 14:07) throat swelling Medications ?Medication ?Instructions ?Recorded ?Confirmed ?Type ibuprofen 600 mg tablet 600 mg PO Q6H PRN PRN Pain Score 0 01/12/25 Rx -05/25 #20 tabs mecobalamin (vitamin B12) 500 mcg mcg PO 09/08/24 01/12/25 History chewable tablet propranolol 60 mg capsule,24 60 mg PO QHS 09/08/24 01/12/25 History hr,extended release nmrfplwl-jvf-mxksj ac 400 tab PO 11/08/24 01/12/25 History mcg-calcium carb 500 mg-vit K1 20 mcg tablet (Women's 50 Plus Multivitamin) sennosides 8.6 mg capsule (senna) 8.6 mg PO QDAY PRN constipation 11/08/24 01/12/25 History sumatriptan succinate 25 mg tablet See Rx Instructions PO .COMPLEX 11/29/24 01/12/25 History (Imitrex) PRN migraine headache venlafaxine 75 mg capsule,extended 75 mg PO QHS 11/29/24 01/12/25 History release 24 hr vonoprazan 10 mg tablet (Voquezna) 10 mg PO QDAY #30 tabs 12/13/24 01/12/25 Rx famotidine 40 mg tablet 40 mg PO QDAY PRN eructation #30 12/28/2 5 01/12/25 Rx tabs misoprostol 200 mcg tablet [...] Depression Heart disease Mental disorder Severe allergy PacemakerFather High cholesterol Cancer lung/lymphomaAunt Arthritis Cancer lymphoma Stomach cancer maternal auntAunt CancerSister Depression Mental disorder HypertensionBrother Cancer lymphoma Depression Mental disorderGrandmother Heart disease Severe allergy Cancer in stomachGrandfather Suicide Social History adopted: No household members: spouse number of children: 3 current occupational status: employed current occupation: [employer] current occupational exposures/hazards: No pets [...] feel safe at home: Yes HPI Consult D&C Details: POLINA THOMSON is a 59 year [...] 1985 Guille Unknown 1986 Selvin Unknown 1992 Sheyana ROS Const Constitutional: Denies fatigue, night sweats, weight gain or weight loss ENT ENT: Reports system reviewed and no additional complaints, except as documented Cardio Card: Denies chest pain Resp Resp: Denies cough or dyspnea GI GI: Reports as per HPI and constipation; Denies abdominal pain, nausea or vomiting : Denies nipple discharge, urinary frequency, urinary incontinence, urinary hesitancy, urinary urgency, vaginal discharge, vaginal dryness, vaginal odor or vaginal pruritus Musc Musc: Denies arthralgias, back pain or muscle weakness Skin Skin/Breast: Denies alopecia, change in hair, dry skin, breast mass, breast pain, breast skin changes or nipple discharge Neuro Neuro: Reports system reviewed and no additional complaints, except as documented Psych Psych: Reports system reviewed and no additional complaints, except as documented Endo Endo: Denies cold intolerance, excessive sweating, heat intolerance or polydipsia Mil/Lymph Hematologic/Lymphatic: Denies easy bleeding, Denies easy bruising and Denies lymphadenopathy Exam Const General: cooperative, healthy appearing, comfortable and no acute distress Orientation: alert HENMT Head: normal to inspection and normocephalic Ears: hearing grossly normal bilaterally and external ears normal Nose: external nose normal and nares normal Face and sinus: normal facial exam Neck Neck: normal visual inspection and no lymphadenopathy Thyroid: thyroid normal Chest Chest palpation & inspection: normal inspection of the chest Resp Effort & Inspection: normal respiratory effort Auscultation: clear to auscultation bilaterally Cardio Rate: regular rate Rhythm: regular rhythm Heart Sounds: S1 normal and S2 normal GI Inspection: normal to inspection and non-distended Palpation: soft and no hepatosplenomegaly Musc Other: gross motor intact no deficits, full bilateral strength Skin General: no rashes or lesions noted Neuro General: patient alert, patient awake, moves all extremities and no focal motor deficits Motor: muscle tone normal throughout Extrem General: normal to inspection and no pedal edema Psych Appearance: grossly normal Mental Status: mental status grossly normal Affect: normal affect Speech and Movement: speech and movement normal Coding Level of Care Code Off vis,est,level 4 Diagnoses Post-menopausal bleeding N95.0 Assessment and Plan Assessment and Plan (1) Post-menopausal bleeding: Status: Acute Comment: s/p ablation greater than 10 years. Endometrial lining 4mm. cytotec preop. Medications: New misoprostol (Cytotec) take the night before and two hours prior to the procedure 2 tabs 1RF Plan After discussing the patient's diagnosis and treatment plan options, patient wishes to proceed with surgical management. I have discussed with the patient the risks, benefits, and alternatives of the procedure which include but are notlimited to risks of anesthesia, bleeding, infection, possible damage to bowel, bladder, or surrounding vasculature which could lead to additional surgery to evaluate any complications. Patient agrees to procedure and wishes to proceed. ACOG/uptodate references given for additional information regarding procedure. 01/30/25 0738 <Electronically signed by Gayatri Weinstein MD> Cosigner Signature (if applicable): CC: Dr. Willie Adams MD; Dr. Gayatri Weinstein MD~ Signed ADDENDUM by Dr. Gayatri Weinstein MD on 01/30/25 at 1423 Addendum UPDATE- I have seen the patient and performed any clinically relevant updates to the history and physical exam. Gayatri Weinstein MD 01/30/25 1423<Electronically signed by Gayatri Weinstein MD> Cosigner Signature (if applicable): cc: Dr. Willie Adams MD; Dr. Gayatri Weinstein MD ~* Signed [facility] Work Phone: 1(903) 262-627106-17-2025 Procedure note [facility] Medical Records Department [address] [place] [address] Operative Report 01/30/25 1549 MR#: [id number] Acct: [id number] Name: POLINA THOMSON Rep #:[id number] : 1965 59 From: Gayatri balderas MD PCP: Dr. 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: No Type of Anesthesia: IV Sedation and Local RN Documented Start/Stop Times: Operation Date: 01/30/25 13:45 Case Time Into Pre-Op 01/30/25 12:13 Out of Pre-Op 01/30/25 14:50 Anesthesia Start 01/30/25 14:59 Into Room 01/30/25 14:59 Procedure Start 01/30/25 15:16 Procedure End 01/30/25 15:23 Anesthesia End 01/30/25 15:31 Out of Room 01/30/25 15:31 Into Recovery 01/30/25 15:32 Procedure Start Time: 15:16 Procedure Stop Time: 15:23 Select all DRAINS/GRAFTS/IMPLANTS that apply: None Estimated Blood Loss: 25 Specimen collected: Yes Description of specimen(s) removed: thin atrophic lining Description of surgery: Patient was prepped and draped in a normal sterile fashion under MAC anesthesia. A weighted speculum was placed in the vagina and the anterior lip of the cervixwas grasped with a single-tooth tenaculum. A paracervical block was placed with1% lidocaine. Cervix was progressively dilated to allow passage of a 7 mm hysteroscope. The lining was fully visualized and noted to have thin atorphic lining .Uterine sounded to 6 cm. Curettage was performed and minimal tissue removed , sent to pathology. All instruments were removed from the vagina and excellent hemostasis was noted. Patient was awoken and taken to recovery in stable condition. Surgical Findings: thin atrophic endometrial lining Complications Complications: No 01/30/25 1552 Cosigner Signature (if applicable): CC: Dr. Willie Adams MD; Dr. Gayatri Weinstein MD~ Signed [facility]06-17-2025 Consult note Author Bharat [facility] Note Date/Time January 30, 2025 1:03 pm [facility] Medical Records Department [address] [place] [address] Pre-Anesthesia Evaluation 01/30/25 1258 MR#: [id number] Acct: [id number] Name: POLINA THOMSON Rep #:[id number] : 1965 59 From: Bharat Atwood MD PCP: Dr. Willie Adams MD Status:R [facility] Y Race: C Location: [place] [address] ASA Classification* ASA Classification ASA Classification: 2 (PONV (TIVA please), anxiety, migraines, asthma , GERD, CHACHA) Assessment & Plan Anesthesia* Anesthesia Assessment Anesthesia [...] anesthesia risk assessments. Anesthesia Type Anesthesia Type: General (TIVA) History Source History Obtained from:: Patient and Chart Anesthesia Focused Assessment* Temperature: 98.1 F Pulse Rate: 49 Blood Pressure: 102/66 Respiratory Rate: 16 Pulse Ox: 99 Oxygen Delivery Method: Room Air Airway Assessment Mouth opens: >3 cm Mallampati Score: II Teeth Condition: Intact Neck Range of motion (ROM): Full ROM Labs Anesthesia Preop lab: CBC WBC 5.3 K/mm3 (4.4-11.0) 01/17/25 16:37 01/17/25 RBC 4.40 M/mm3 (4.2-5.4) 01/17/25 16:37 01/17/25 Hgb 13.5 g/dL (12.0-15.0) 01/17/25 16:37 01/17/25 Hct 39.9 % (37-47) 01/17/25 16:37 01/17/25 Plt Count 241 K/mm3 (150-450) 01/17/25 16:37 01/17/25 CHEMISTRY Potassium 4.1 mmol/L (3.3-5.1) 01/17/25 16:37 01/17/25 Sodium 139 mmol/L (133-145) 01/17/25 16:37 01/17/25 BUN 13 mg/dL (4-19) 01/17/25 16:37 01/17/25 Creatinine 1.15 mg/dL (0.70-1.20) 01/17/25 16:37 01/17/25 Glucose 97 mg/dL (70-99) 01/17/25 16:37 01/17/25 TSH 3.490 uIU/mL (0.300-4.200) 11/09/24 06:45 0303/09 COAG Urine Test Negative Negative 02/05/20 10:30 02/05/20 Tst Clinic Negative 11/23/24 15:15 11/23/24 Pre-Assessment Diagnosis/Proposed Procedure Planned Operative Procedure(s): Hysteroscopy,Dilation and Curettage Anesthesia History Anesthesia History - recovery coach: Anesthesia History - recovery coach Hx Hospitalization No 01/17/25 14:59 Any Problems With Anesthesia No 01/17/25 14:59 Cholinesterase deficiency No 01/17/25 14:59 You/Your Family Experience No 01/17/25 14:59 fever (hyperthermia) with Relationship Recent Exposure to Contagious No 01/30/25 12:39 Disease Does patient have nerve No 01/17/25 14:59 stimulator Patient instructed to have device shut off --Does patient have Pacemaker No 01/30/25 12:39 or ICD? When Was Last Pacemaker Check QUESTION #4 FULL TEXT: You/Your Family Experience fever (hyperthermia) with Anesthesia Last Oral Intake Last Oral intake: Last Oral Intake NPO since 10:00 01/30/25 12:39 Meds taken in AM with sips of Yes 01/30/25 12:39 water? Meds patient instructed to cytotec 01/30/25 12:39 take am of surgery PONV PONV - recovery coach: PONV - recovery coach Female Yes 01/17/25 14:59 HX of Motion Sickness Yes 01/17/25 14:59 HX of N/V After Surgery Yes 01/17/25 14:59 Non-Smoker Yes 01/17/25 14:59 Duration of Surgery greater No 01/17/25 14:59 than 60 minutes Number of Risk Factors 4 01/17/25 14:59 PONV Score Severe Risk 01/17/25 14:59 Height & Weight Height & Weight: Anesthesia: Height & Weight Height 5 ft 7 in 01/30/25 12:39 Weight: 89 kg 01/30/25 12:39 Body Mass Index (BMI) 30.7 01/30/25 12:39 Respiratory Assessment Respiratory Assessment - recovery coach: Respiratory Tract Infection Hx - recovery coach Hx Respiratory Tract Infection No 01/17/25 14:59 STOP Sleep Apnea STOP Sleep Apnea - recovery coach: STOP Sleep Apnea - recovery coach Hx Hypertension Yes 01/17/25 14:59 Hx Sleep Apnea No 01/17/25 14:59 CPAP BIPAP Do you snore loudly (louder Yes 01/17/25 14:59 than talking or can be heard Do you often feel tired/ No 01/17/25 14:59 fatigued/ sleepy during daytime? Has anyone observed you stop No 01/17/25 14:59 breathing during sleep? STOP Results Positive 01/17/25 14:59 QUESTION #5 FULL TEXT : Do you snore loudly (louder than talking or can be heard through closed doors)? Tobacco Use History Tobacco Use History - recovery coach: Tobacco Use History - recovery coach Tobacco Use Smoking Status Former smoker 01/17/25 14:59 Hx Tobacco Use No 01/17/25 14:59 Years Smoking Packs Smoked per Day Smoking Cessation Date was Yes - quit smoking within 15 01/17/25 14:59 within the last 15 years years Hx Smoking Cessation Date Hx Smoking Cessation No 01/17/25 14:59 Counseling Hematologic Medial History Hematologic Hx - recovery coach: Hematologic Medical Hx - log cooker Hx of Blood Transfusion No 01/17/25 14:59 Hx of Transfusion in last 3 No 01/17/25 14:59 Months Date of Last Transfusion (if within last 3 months) Ever experience any problems No 01/17/25 14:59 with transfusion(s)? Specify any problems Hx of Preganancy in last 3 No 01/17/25 14:59 Months Nurse Filling Out Transfusion JZOLLSTEFANI 01/17/25 14:59 & Questions: Date: 01/17/25 01/17/25 14:59 Time: 15:01 01/17/25 14:59 Patient unable to answer at this time (ie. confused, unrespo /Reproduction History /Reproductive History - recovery coach: /Reproductive Hx- recovery coach Hx Now No 01/17/25 14:59 Gestational Age (in weeks): EDC: Hx Hx Para Hx Section SAB No 01/17/25 14:59 Active Medications Active Medications: Current Medications Generic Name Dose Route Start Last Admin Trade Name Freq PRN Reason Stop Dose Admin Lactated Ringer's 1,000 mls @ 15 mls/hr 01/30/25 12:15 01/30/25 12:49 IV 15 mls/hr .Q48H MARIA C Administration PFSH Medical History (Updated 01/17/25 @ 14:59 by Fidelia Hdz) Bite from insect Leg cramps Wears glasses Depression Anxiety Fatty liver Injury [...] #20 tabs mecobalamin (vitamin B12) 500 mcg 500 mcg PO .QD 09/0811/27/24 History chewable tablet propranolol 60 mg capsule,24 60 mg PO QHS 09/08/24 History hr,extended release blxameph-fdr-kwvbp ac 400 1 tab PO .QD 11/08/24 History mcg-calcium carb 500 mg-vit K1 20 mcg tablet (Women's 50 Plus Multivitamin) sennosides 8.6 mg capsule (senna) 8.6 mg PO QDAY PRN c onstipation 11/08/24 Unknown History sumatriptan succinate 25 mg tablet See Rx Instructions PO .COMPLEX 11/29/24 Unknown History (Imitrex) PRN migraine headache venlafaxine 75 mg capsule,extended 75 mg PO QHS 11/28/24 History release 24 hr vonoprazan 10 mg tablet (Voquezna) 10 mg PO QDAY #30 t abs 12/13/24 Unknown Rx misoprostol 200 mcg tablet 200 mcg PO .complex #2 tabs 01/12/25 01/30/25 Rx (Cytotec) magnesium 250 mg tablet 250 mg PO QHS 01/17/25 Unkno wn History famotidine 40 mg tablet 40 mg PO BID eructation #60 tabs 01/23/25 Unknown Rx Allergy/AdvReac Type Severity Reaction Status Date / Time perfume Allergy throat Verified 01/30/25 12:37 swelling Family History Mother Anxiety Depression Heart [...] 3 current occupational status: employed 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 Physical Exam Const alert, oriented x3 and average body habitus Resp normal respiratory effort, normal air movement and clear to auscultation bilaterally Cardio regular rate, regular rhythm, no murmurs and diaphoretic 01/30/25 1303 <Electronically signed by Bharat Atwood MD> Date _ Bharat Atwood MD Cosigner Signature: Date CC: ~ Signed [facility] Work Phone: [phone] History and physical note [facility] Medical Records Department [facility] [place] [address] History & Physical Exam 01/30/25 0735 MR#: [id number] Acct: [id number] Name: POLINA THOMSON Rep #:[id number] : 1965 59 From: Gayatri balderas MD PCP: Dr. Willie Adams MD Status:R EG [facility] Location: [place] [address] History and Physical Date of Admission: 01/30/25 Intake Vital Signs 11/29/2504:40 01/12/2514:06 Height 5 ft 7 in 5 ft 7 in Weight: 201 lb 4 oz BMI 31.5 BP 115/69 Intake Visit Reasons: Consult D&C Finance Officer Required: No Is patient in pain?: Yes (on and off pain, ) Allergies perfume Allergy (Verified 01/12/25 14:07) throat swelling Medications ?Medication ?Instructions ?Recorded ?Confirmed ?Type ibuprofen 600 mg tablet 600 mg PO Q6H PRN PRN Pain Score 0 01/12/25 Rx -05/25 #20 tabs mecobalamin (vitamin B12) 500 mcg mcg PO 09/08/24 01/12/25 History chewable tablet propranolol 60 mg capsule,24 60 mg PO QHS 09/08/24 01/12/25 History hr,extended release zcclsfua-yqw-wslzj ac 400 tab PO 11/08/24 01/12/25 History mcg-calcium carb 500 mg-vit K1 20 mcg tablet (Women's 50 Plus Multivitamin) sennosides 8.6 mg capsule (senna) 8.6 mg PO QDAY PRN constipation 11/08/24 01/12/25 History sumatriptan succinate 25 mg tablet See Rx Instructions PO .COMPLEX 11/29/24 01/12/25 History (Imitrex) PRN migraine headache venlafaxine 75 mg capsule,extended 75 mg PO QHS 11/29/24 01/12/25 History release 24 hr vonoprazan 10 mg tablet (Voquezna) 10 mg PO QDAY #30 tabs 12/13/24 01/12/25 Rx famotidine 40 mg tablet 40 mg PO QDAY PRN eructation #30 12/28/2 5 01/12/25 Rx tabs misoprostol 200 mcg tablet [...] Depression Heart disease Mental disorder Severe allergy PacemakerFather High cholesterol Cancer lung/lymphomaAunt Arthritis Cancer lymphoma Stomach cancer maternal auntAunt CancerSister Depression Mental disorder HypertensionBrother Cancer lymphoma Depression Mental disorderGrandmother Heart disease Severe allergy Cancer in stomachGrandfather Suicide Social History adopted: No household members: spouse number of children: 3 current occupational status: employed 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 [employer] current occupational exposures/hazards: No pets [...] feel safe at home: Yes HPI Consult D&C Details: POLINA THOMSON is a 59 year [...] 1985 Guille Unknown 1986 Selvin Unknown 1992 Shealma ROS Const Constitutional: Denies fatigue, night sweats, weight gain or weight loss ENT ENT: Reports system reviewed and no additional complaints, except as documented Cardio Card: Denies chest pain Resp Resp: Denies cough or dyspnea GI GI: Reports as per HPI and constipation; Denies abdominal pain, nausea or vomiting : Denies nipple discharge, urinary frequency, urinary incontinence, urinary hesitancy, urinary urgency, vaginal discharge, vaginal dryness, vaginal odor or vaginal pruritus Musc Musc: Denies arthralgias, back pain or muscle weakness Skin Skin/Breast: Denies alopecia, change in hair, dry skin, breast mass, breast pain, breast skin changes or nipple discharge Neuro Neuro: Reports system reviewed and no additional complaints, except as documented Psych Psych: Reports system reviewed and no additional complaints, except as documented Endo Endo: Denies cold intolerance, excessive sweating, heat intolerance or polydipsia Mil/Lymph Hematologic/Lymphatic: Denies easy bleeding, Denies easy bruising and Denies lymphadenopathy Exam Const General: cooperative, healthy appearing, comfortable and no acute distress Orientation: alert HENMT Head: normal to inspection and normocephalic Ears: hearing grossly normal bilaterally and external ears normal Nose: external nose normal and nares normal Face and sinus: normal facial exam Neck Neck: normal visual inspection and no lymphadenopathy Thyroid: thyroid normal Chest Chest palpation & inspection: normal inspection of the chest Resp Effort & Inspection: normal respiratory effort Auscultation: clear to auscultation bilaterally Cardio Rate: regular rate Rhythm: regular rhythm Heart Sounds: S1 normal and S2 normal GI Inspection: normal to inspection and non-distended Palpation: soft and no hepatosplenomegaly Musc Other: gross motor intact no deficits, full bilateral strength Skin General: no rashes or lesions noted Neuro General: patient alert, patient awake, moves all extremities and no focal motor deficits Motor: muscle tone normal throughout Extrem General: normal to inspection and no pedal edema Psych Appearance: grossly normal Mental Status: mental status grossly normal Affect: normal affect Speech and Movement: speech and movement normal Coding Level of Care Code Off vis,est,level 4 Diagnoses Post-menopausal bleeding N95.0 Assessment and Plan Assessment and Plan (1) Post-menopausal bleeding: Status: Acute Comment: s/p ablation greater than 10 years. Endometrial lining 4mm. cytotec preop. Medications: New misoprostol (Cytotec) take the night before and two hours prior to the procedure 2 tabs 1RF Plan After discussing the patient's diagnosis and treatment plan options, patient wishes to proceed withsurgical management. I have discussed with the patient the risks, benefits, and alternatives of theprocedure which include but are notlimited to risks of anesthesia, bleeding, infection, possible damage to bowel, bladder, or surrounding vasculature which could lead to additional surgery to evaluate any complications. Patient agrees to procedure and wishes to proceed. ACOG/uptodate references given for additional information regarding procedure. 01/30/25 0738 Cosigner Signature (if applicable): CC: Dr. Willie Adams MD; Dr. Gayatri Weinstein MD~ Signed ADDENDUM by Dr. Gayatri Weinstein MD on 01/30/25 at 1423 Addendum UPDATE- I have seen the patient and performed any clinically relevant updates to the history and physical exam. Gayatri Weinstein MD 01/30/25 1423 Cosigner Signature (if applicable): cc: Dr. Willie Adams MD; Dr. Gayatri Weinstein MD ~* Signed [facility]06-17-2025 Consult note [facility] Medical Records Department [address] [place] [address] Pre-Anesthesia Evaluation 01/30/25 1258 MR#: [id number] Acct: [id number] Name: POLINA THOMSON Rep #:[id number] : 1965 59 From: Bharat Atwood MD PCP: Dr. Willie Adams MD Status:R EG [facility] Y Race: C Location: [place] [address]- ASA Classification* ASA Classification ASA Classification: 2 (PONV (TIVA please), anxiety, migraines, asthma , GERD, CHACHA) Assessment & Plan Anesthesia* Anesthesia Assessment Anesthesia [...] anesthesia risk assessments. Anesthesia Type Anesthesia Type: General (TIVA) History Source History Obtained from:: Patient and Chart Anesthesia Focused Assessment* Temperature: 98.1 F Pulse Rate: 49 Blood Pressure: 102/66 Respiratory Rate: 16 Pulse Ox: 99 Oxygen Delivery Method: Room Air Airway Assessment Mouth opens: >3 cm Mallampati Score: II Teeth Condition: Intact Neck Range of motion (ROM): Full ROM Labs Anesthesia Preop lab: CBC WBC 5.3 K/mm3 (4.4-11.0) 01/17/25 16:37 01/17/25 RBC 4.40 M/mm3 (4.2-5.4) 01/17/25 16:37 01/17/25 Hgb 13.5 g/dL (12.0-15.0) 01/17/25 16:37 01/17/25 Hct 39.9 % (37-47) 01/17/25 16:37 01/17/25 Plt Count 241 K/mm3 (150-450) 01/17/25 16:37 01/17/25 CHEMISTRY Potassium 4.1 mmol/L (3.3-5.1) 01/17/25 16:37 01/17/25 Sodium 139 mmol/L (133-145) 01/17/25 16:37 01/17/25 BUN 13 mg/dL (4-19) 01/17/25 16:37 01/17/25 Creatinine 1.15 mg/dL (0.70-1.20) 01/17/25 16:37 01/17/25 Glucose 97 mg/dL (70-99) 01/17/25 16:37 01/17/25 TSH 3.490 uIU/mL (0.300-4.200) 11/09/24 06:45 10/15 03/09 COAG Urine Test Negative Negative 02/05/20 10:30 02/05/20 Tst Clinic Negative 11/23/24 15:15 11/23/24 Pre-Assessment Diagnosis/Proposed Procedure Planned Operative Procedure(s): Hysteroscopy,Dilation and Curettage Anesthesia History Anesthesia History - recovery coach: Anesthesia History - recovery coach Hx Hospitalization No 01/17/25 14:59 Any Problems With Anesthesia No 01/17/25 14:59 Cholinesterase deficiency No 01/17/25 14:59 You/Your Family Experience No 01/17/25 14:59 fever (hyperthermia) with Relationship Recent Exposure to Contagious No 01/30/25 12:39 Disease Does patient have nerve No 01/17/25 14:59 stimulator Patient instructed to have device shut off --Does patient have Pacemaker No 01/30/25 12:39 or ICD? When Was Last Pacemaker Check QUESTION #4 FULL TEXT: You/Your Family Experience fever (hyperthermia) with Anesthesia Last Oral Intake Last Oral intake: Last Oral Intake NPO since 10:00 01/30/25 12:39 Meds taken in AM with sips of Yes 01/30/25 12:39 water? Meds patient instructed to cytotec 01/30/25 12:39 take am of surgery PONV PONV - recovery coach: PONV - recovery coach Female Yes 01/17/25 14:59 HX of Motion Sickness Yes 01/17/25 14:59 HX of N/V After Surgery Yes 01/17/25 14:59 Non-Smoker Yes 01/17/25 14:59 Duration of Surgery greater No 01/17/25 14:59 than 60 minutes Number of Risk Factors 4 01/17/25 14:59 PONV Score Severe Risk 01/17/25 14:59 Height & Weight Height & Weight: Anesthesia: Height & Weight Height 5 ft 7 in 01/30/25 12:39 Weight: 89 kg 01/30/25 12:39 Body Mass Index (BMI) 30.7 01/30/25 12:39 Respiratory Assessment Respiratory Assessment - recovery coach: Respiratory Tract Infection Hx - recovery coach Hx Respiratory Tract Infection No 01/17/25 14:59 STOP Sleep Apnea STOP Sleep Apnea - recovery coach: STOP Sleep Apnea - recovery coach Hx Hypertension Yes 01/17/25 14:59 Hx Sleep Apnea No 01/17/25 14:59 CPAP BIPAP Do you snore loudly (louder Yes 01/17/25 14:59 than talking or can be heard Do you often feel tired/ No 01/17/25 14:59 fatigued/ sleepy during daytime? Has anyone observed you stop No 01/17/25 14:59 breathing during sleep? STOP Results Positive 01/17/25 14:59 QUESTION #5 FULL TEXT : Do you snore loudly (louder than talking or can be heard through closeddoors)? Tobacco Use History Tobacco Use History - recovery coach: Tobacco Use History - recovery coach Tobacco Use Smoking Status Former smoker 01/17/25 14:59 Hx Tobacco Use No 01/17/25 14:59 Years Smoking Packs Smoked per Day Smoking Cessation Date was Yes - quit smoking within 15 01/17/25 14:59 within the last 15 years years Hx Smoking Cessation Date Hx Smoking Cessation No 01/17/25 14:59 Counseling Hematologic Medial History Hematologic Hx - recovery coach: Hematologic Medical Hx - log cooker Hx of Blood Transfusion No 01/17/25 14:59 Hx of Transfusion in last 3 No 01/17/25 14:59 Months Date of Last Transfusion (if within last 3 months) Ever experience any problems No 01/17/25 14:59 with transfusion(s)? Specify any problems Hx of Preganancy in last 3 No 01/17/25 14:59 Months Nurse Filling Out Transfusion CHELA 01/17/25 14:59 & Questions: Date: 01/17/25 01/17/25 14:59 Time: 15:01 01/17/25 14:59 Patient unable to answer at this time (ie. confused, unrespo /Reproduction History /Reproductive History - recovery coach: /Reproductive Hx- recovery coach Hx Now No 01/17/25 14:59 Gestational Age (in weeks): EDC: Hx Hx Para Hx Section SAB No 01/17/25 14:59 Active Medications Active Medications: Current Medications Generic Name Dose Route Start Last Admin Trade Name Freq PRN Reason Stop Dose Admin Lactated Ringer's 1,000 mls @ 15 mls/hr 01/30/25 12:15 01/30/25 12:49 IV 15 mls/hr .Q48H MARIA C Administration PFSH Medical History (Updated 01/17/25 @ 14:59 by Fidelia Hdz) Bite from insect Leg cramps Wears glasses Depression Anxiety Fatty liver Injury [...] #20 tabs mecobalamin (vitamin B12) 500 mcg 500 mcg PO .QD 09/0811/27/24 History chewable tablet propranolol 60 mg capsule,24 60 mg PO QHS 09/08/24 History hr,extended release ecgdfdka-rbw-wrknr ac 400 1 tab PO .QD 11/08/24 History mcg-calcium carb 500 mg-vit K1 20 mcg tablet (Women's 50 Plus Multivitamin) sennosides 8.6 mg capsule (senna) 8.6 mg PO QDAY PRN c onstipation 11/08/24 Unknown History sumatriptan succinate 25 mg tablet See Rx Instructions PO .COMPLEX 11/29/24 Unknown History (Imitrex) PRN migraine headache venlafaxine 75 mg capsule,extended 75 mg PO QHS 11/28/24 History release 24 hr vonoprazan 10 mg tablet (Voquezna) 10 mg PO QDAY #30 t abs 12/13/24 Unknown Rx misoprostol 200 mcg tablet 200 mcg PO .complex #2 tabs 01/12/25 01/30/25 Rx (Cytotec) magnesium 250 mg tablet 250 mg PO QHS 01/17/25 Unkno wn History famotidine 40 mg tablet 40 mg PO BID eructation #60 tabs 01/23/25 Unknown Rx Allergy/AdvReac Type Severity Reaction Status Date / Time perfume Allergy throat Verified 01/30/25 12:37 swelling Family History Mother Anxiety Depression Heart [...] 3 current occupational status: employed current occupation: [employer] current occupational exposures/hazards: No pets [...] and no additional complaints, except as documented. Physical Exam Const alert, oriented x3 and average body habitus Resp normal respiratory effort, normal air movement and clear to auscultation bilaterally Cardio regular rate, regular rhythm, no murmurs and diaphoretic 01/30/25 1303 MD> Date _ Bharat Wen Signature: Date CC: ~ Signed [facility]06-17-2025 [facility] Medical Records Department [address] [place] [address] History Physical Exam 01/30/25 0735 MR#: [id number] Acct: [id number] Name: POLINA THOMSON Rep #: [id number] : 1965 59 From: Gayatri Weinstein MD PCP: Dr. Willie Adams MD Status:[facility] Location: [place] [address] History and Physical Date of Admission: 01/30/25 Intake Vital Signs 11/29/2504:40 01/12/2514:06 Height 5 ft 7 in 5 ft 7 in Weight: 201 lb 4 oz BMI 31.5 BP 115/69 Intake Visit Reasons: Consult D C Finance Officer Required: No Is patient in pain?: Yes (on and off pain, ) Allergies perfume Allergy (Verified 01/12/25 14:07) throat swelling Medications ???Medication ???Instructions ???Recorded ???Confirmed ???Type ibuprofen 600 mg tablet 600 mg PO Q6H PRN PRN Pain Score 02/05/20 01/12/25 Rx -05/25 #20 tabs mecobalamin (vitamin B12) 500 mcg mcg PO 09/08/24 01/12/25 History chewable tablet propranolol 60 mg capsule,24 60 mg PO QHS 09/08/24 01/12/25 History hr,extended release juomjhhz-wmv-guakp ac 400 tab PO 11/08/24 01/12/25 History mcg-calcium carb 500 mg-vit K1 20 mcg tablet (Women's 50 Plus Multivitamin) sennosides 8.6 mg capsule (senna) 8.6 mg PO QDAY PRN constipation 11/08/24 01/12/25 History sumatriptan succinate 25 mg tablet See Rx Instructions PO .COMPLEX 11/29/24 01/12/25 History (Imitrex) PRN migraine headache venlafaxine 75 mg capsule,extended 75 mg PO QHS 11/29/24 01/12/25 History release 24 hr vonoprazan 10 mg tablet (Voquezna) 10 mg PO QDAY #30 tabs 12/13/24 01/12/25 Rx famotidine 40 mg tablet 40 mg PO QDAY PRN eructation #30 12/28/24 01/12/25 Rx tabs misoprostol 200 mcg tablet 200 mcg PO .complex #2 tabs 01/12/25 01/12/25 Rx (Cytotec) Patient : No : [...] Depression Heart disease Mental disorder Severe allergy PacemakerFather High cholesterol Cancer lung/lymphomaAunt Arthritis Cancer lymphoma Stomach cancer maternal auntAunt CancerSister Depression Mental disorder HypertensionBrother Cancer lymphoma Depression Mental disorderGrandmother Heart disease Severe allergy Cancer in stomachGrandfather Suicide Social History adopted: No household members: spouse number of children: 3 current occupational status: employed 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 Date (more content not included)...[facility]06-11-2025 Radiology Diagnostic study note [facility] Imaging Services [address] [place], [place] [address] Abdomen/Pelvis WITH Contrast MR#: [id number] Acct: [id number] Name: POLINA THOMSON Rep #: [id number] : 1965 F 59 From: Chely Foster MD PCP: Dr. Willie Adams MD Status: R EG CLI Study:Abdomen/Pelvis WITH Contrast Date of Ex am: 01/23/25 Exam# [id number] Ordering Dr: Alma Melton PROCEDURE: ABDOMEN/PELVIS WITH CONTRAST 01/23/2025 REASON FOR EXAM: ABD PAIN TECHNIQUE: Abdomen and pelvis CT with intravenous contrast. Coronal and Sagittal reconstruction series were provided. PATIENT PREPARATION: Per protocol ORAL CONTRAST TYPE: Patient ingested oral contrast. CONTRAST: Isovue-300 50 VOLUME: 100 mL One or more dose reduction techniques were used (e.g., Automated exposure control, adjustment of the mA and/or kV according to patient size, use of iterative reconstruction technique. RADIATION DOSE SUMMARY: CTDlvol: 18.8 mGy DLP: 1045 mGycm COMPARISON: 02/05/2020. FINDINGS: Hepatic steatosis. Unchanged scattered simple hepatic cysts with the largest measuring 1.2 cm. Prior appendectomy. Uncomplicated colonic diverticulosis. Diffuse thickening of the stomach suggestive of gastritis. Unchanged horseshoe kidney. Unchanged 3 mm right renal nonobstructing stone. Unchanged scattered left renal cysts with the largest measuring 3.5 cm. Unchanged bilateral fullness of the extrarenal pelves. Mild diffuse spondylosis. The visualized lung bases are unremarkable. Normal gallbladder and extrahepatic biliary system. Normal spleen. Normal pancreas. Normal bilateral adrenal glands. There is no right renal mass. There is no right hydronephrosis. Normal visualized right ureter. There is no left renal mass. There are no left renal calculi. There is no lefthydronephrosis. Normal visualized left ureter. Normal small intestine. There is no demonstrated peritoneal fluid. Mild calcified atheromatous plaques of the abdominal aorta. Normal inferior vena cava. Normal retroperitoneum. Normal urinary bladder. There is no pelvic mass lesion or lymphadenopathy. There is no pelvic fluid. CT/Abdomen/Pelvis WITH Contrast IMPRESSION: Hepatic steatosis. Unchanged scattered simple hepatic cysts with the largest measuring 1.2 cm. Prior appendectomy. Uncomplicated colonic diverticulosis. Diffuse thickening of the stomach suggestive of gastritis. Unchanged horseshoe kidney. Unchanged 3 mm right renal nonobstructing stone. Unchanged scattered left renal cysts with the largest measuring 3.5 cm. Unchanged bilateral fullness of the extrarenal pelves. Mild diffuse spondylosis. Reading Location: [place] [address] CC: Dr. Willie Adams MD; LETICIA Ham ~ Material Handler 1St Shift: Signed [facility]04-16-2025 Consult note [facility] Medical Records Department [address] [place] [address] Anesthesia Postop Eval II 11/29/24 0730 MR#: [id number] Acct: [id number] Name: POLINA THOMSON Rep #:[id number] : 1965 59 From: Michael Grier MD PCP: Dr. Willie Adams MD Status:R EG SD Y Race: C Location: [place] [address] Anesthesia Postop Eval I Sum Postop Eval [...] Level: 0 nausea: No Vomiting: No 11/29/24729 > Date _ Michael Wen Signature: Date CC: ~ Signed [facility]04-16-2025 Consult note [facility] Medical Records Department [address] [place] [address] Anesthesia Postop Eval I 11/29/24707 MR#: [id number] Acct: [id number] Name: POLINA THOMSON Rep #:[id number] : 1965 59 From: Lele Keys PCP: Dr. Willie Adams MD Status:R EG [facility] Y Race: C Location: [place] [address] Anesthesia: Postop Eval I Current Vital Signs [...] Anesthesia document: Postop Eval 1 completed: Yes 11/29/24708 > Date _ Lele Wen Signature: Date CC: ~ Signed [facility]04-16-2025 Procedure note [facility] Medical Records Department [address] [place] [address] Operative Report - CC Letter MR#: [id number] Acct: [id number] Name: POLINA THOMSON Rep #:[id number] : 1965 59 From: Adria Cisse DO PCP: Dr. Willie Adams MD Status:R [facility] 11/29/2024 Willie Adams MD [address] [place] [address] [place] [address] Re : Upper GI endoscopy procedure for Polina Thomson Dear Dr. Adams This procedure was performed on Wednesday, November 29, 2024. My impressions and recommendations are as follows: Impressions : - Normal esophagus. - Normal stomach. - Chronic duodenitis. Biopsied. Recommendations : - Discharge patient to home. - Resume previous diet. - Continue present medications. - Await pathology results. My findings are described in the full procedure note, which is enclosed. If I can be of further assistance, please feel free to contact me at . Sincerely, Adria Cisse DO 11/29/2024 7:04:06 AM This report has been signed electronically. 11/29/24703 Date _ Adria Leonard Signature: Date (if indicated) CC: Dr. Willie Adams MD; Adria Cisse DO ~ Date Dictated: 11/29/24612 Date Transcribed: Material Handler 1St Shift: RF Signed [facility]04-16-2025 Procedure note [facility] Medical Records Department [address] [place] [address] EGD Report MR#: [id number] Acct: [id number] Name: POLINA THOMSON Rep #:[id number] : 1965 59 From: Adria Cisse DO PCP: Dr. Willie Adams MD Status:R EG SDC Patient Name: Polina Thomson Procedure Date: 11/29/2024 [...] pathology results. Procedure Code(s): --- Professional --- 94138, Small intestinal endoscopy, enteroscopy beyond second portion of duodenum, not including ileum; with biopsy, single or multiple CPT copyright 2021 [employer]. All rights reserved. The codes documented in this report are preliminary and upon rheumatology specialist review may be revised to meet current compliance requirements. Adria Cisse DO 11/29/2024 7:04:06 AM This report has been signed electronically. Number of Addenda: 0 Note Initiated On: 11/29/2024 6:13 AM 11/29/24 0704 Date _ Adria Cisse DO Cosigner Signature: Date (if indicated) CC: Dr. Willie Adams MD; Adria Cisse DO ~ Date Dictated: 11/29/24612 Date Transcribed: Material Handler 1St Shift: RF Signed [facility]04-16-2025 History and physical note [facility] Medical Records Department [address] [place] [id number] History & Physical Exam 11/29/2445 MR#: [id number] Acct: [id number] Name: POLINA THOMSON Rep #:[id number] : 1965 59 From: Adria Friend PCP: Dr. Willie Adams MD Status:R EG [facility] Location: [place] [address] HPI - General General Date of Admission: 11/29/24 Date of Service: 11/29/24 HPI Narrative POLINA THOMSON, is a 59 F who presents Chief Complaint: bloating Details: POLINA THOMSON, is a 59 F who presents to the office today for establishment with [facility]. Pt has had GI issues for many [...] colonoscopy was in 2019 with normal findings. 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 Samples of Ibsrela given. If shehas positive results will prescribe this to her. Her last colonoscopy was normal in 2019 and her constipation is not new. She will f/u in 2 months. -GES -Trial Ibsrela -Consider EGD -f/u 2 months (2) Bloating: Status: Acute (3) Constipation: Status: Acute Orders: Orders Gastric Emptying Study Today R14.0 - Abdominal distension (gaseous) (2) GERD (gastroesophageal reflux disease): 11/29/24 0647 Cosigner Signature (if applicable): CC: Dr. Willie Adams MD; Adria Cisse DO~ Signed [facility]04-16-2025 [facility] Medical Records Department [address] [place] [address] History Physical Exam 11/29/24 0645 MR#: [id number] Acct: [id number] Name: POLINA THOMSON Rep #: [id number] : 1965 59 From: Adria Cisse DO PCP: Dr. Willie Adams MD Status:REG [facility] Location: [place] [address] HPI - General General Date of Admission: 11/29/24 Date of Service: 11/29/24 HPI Narrative POLINA THOMSON, is a 59 F who presents Chief Complaint: bloating Details: POLINA THOMSON, is a 59 F who presents to the office today for establishment with [facility]. Pt has had GI issues for many [...] colonoscopy was in 2019 with normal findings. [facility] Medical History (Updated 11/29/24 @ 06:[address] Adria Cisse DO) Wears glasses Depression Anxiety Fatty liver [...] QHS 09/08/24 11/28/24 His tory hr,extended release bdxrofbu-zyc-idcta ac 400 tab PO 11/08/24 11/27/24 History mcg-calcium carb 500 mg-vit K1 20 mcg tablet (Women's 50 Plus Multivitamin) sennosides 8.6 mg capsule (senna) 8.6 mg PO QDAY PRN constipation 0 11/08/24 Unknown History vit C 180 mg-D3 10 mcg-zinc 5.5 cap PO 11/08/24 11/27/24 History gl-uwnqhl-oevewjj-aclvin-herb capsule (Immune Support (vit c, d and [...] 3 current occupational status: employed current occupation: [place] [employer] current occupational exposures/hazards: No pets and animals: [...] Gastrointestinal Gastrointestinal: Denies belc (more content not included)...[facility]04-16-2025 Consult note [facility] Medical Records Department [address] [place] [address] Pre-Anesthesia Evaluation 11/29/24 0638 MR#: [id number] Acct: [id number] Name: POLINA THOMSON Rep #:[id number] : 1965 59 From: Michael Grier MD PCP: Dr. Willie Adams MD Status:R [facility] Y Race: C Location: [place] [address] ASA Classification* ASA Classification ASA Classification: 2 [...] Procedure(s): EGD Anesthesia History Anesthesia History - recovery coach: Anesthesia History - recovery coach Hx Hospitalization No 11/24/24 13:43 Any Problems [...] take am of surgery PONV PONV - recovery coach: PONV - recovery coach Female Yes 11/24/24 13:43 HX of Motion [...] 11/29/24 05:40 Respiratory Assessment Respiratory Assessment - recovery coach: Respiratory Tract Infection Hx - recovery coach Hx Respiratory Tract Infection No 11/24/24 13:43 STOP Sleep Apnea STOP Sleep Apnea - recovery coach: STOP Sleep Apnea - recovery coach Hx Hypertension No 11/24/24 13:43 Hx Sleep [...] than talking or can be heard through closeddoors)? Tobacco Use History Tobacco Use History - recovery coach: Tobacco Use History - recovery coach Tobacco Use Smoking Status Former smoker 11/24/24 13:43 Hx Tobacco Use No 11/24/24 13:43 Years Smoking Packs Smoked per Day Smoking Cessation Date was No - quit smoking greater 11/24/24 13:43 within the last 15 years than 15 years ago Hx Smoking Cessation Date Hx Smoking Cessation Counseling Hematologic Medial History Hematologic Hx - recovery coach: Hematologic Medical Hx - log cooker Hx of Blood Transfusion No 11/24/24 13:43 Hx of Transfusion in last 3 No 11/24/24 13:43 Months Date of Last Transfusion (if within last 3 months) Ever experience any problems No 11/24/24 13:43 with transfusion(s)? Specify any problems Hx of Preganancy in last 3 No 11/24/24 13:43 Months Nurse Filling Out Transfusion CHELA 11/24/24 13:43 & Questions: Date: 11/24/24 11/24/24 13:43 Time: 13:46 11/24/24 13:43 Patient unable to answer at this time (ie. confused, unrespo /Reproduction History /Reproductive History - recovery coach: /Reproductive Hx- recovery coach Hx Now No 11/24/24 13:43 Gestational Age (in weeks): EDC: Hx Hx Para Hx Section SAB No 11/24/24 13:43 [facility] Medical History Wears glasses Depression Anxiety Fatty [...] mg PO QHS 09/08/24 History hr,extended release ybytqukl-kui-ysefd ac 400 tab PO 11/08/24 11/27/24 His tory mcg-calcium carb 500 mg-vit K1 20 mcg tablet (Women's 50 Plus Multivitamin) sennosides 8.6 mg capsule (senna) 8.6 mg PO QDAY PRN c onstipation 11/08/24 Unknown History vit C 180 mg-D3 10 mcg-zinc 5.5 cap PO 11/08/24 History fs-rcdkkp-tiemctx-calvin-herb capsule (Immune Support (vit c, d and [...] 3 current occupational status: employed 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 11/29/24 0638 > Date _ Michael Grier MD Cosigner Signature: Date CC: ~ Signed [facility]04-01-2025 Radiology Diagnostic study note [facility] Imaging Services [address] [place] [address] Pelvic w/ Transvaginal MR#: [id number] Acct: [id number] Name: POLINA THOMSON Rep #: [id number] : 1965 F 59 From: Brett Harris MD PCP: Dr. Willie Adams MD Status: R EG CLI Study:Pelvic w/ Transvaginal Date of Exam: 11/13/24 Exam# [id number] Ordering Dr: Fadia Lucio NP-Tiffany PROCEDURE: PELVIC W/ TRANSVAGINAL REASON FOR EXAM: [...] The ovaries were not visualized. Reading Location: [id number] CC: 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 INSTRUCTOR-Tiffany Lucio; Dr. Willie Adams MD ~ Material Handler 1St Shift: Signed [facility]03-27-2025 NotePap Smear Specimen AdequacyMarch 2024 11:59pmComment.Satisfactory for evaluation. Endocervical and/or squamous metaplasticcells (endocervical component)are present.[facility] INTERFACED A#[id number] County [facility] HospitalCommun[facility] on above:Satisfactory for evaluation. Endocervical and/or squamous metaplasticcells (endocervical component)are present.11-09-2024 NotePap Smear Specimen AdequacyMarch 2024 11:59pmComment.Satisfactory for evaluation. Endocervical and/or squamous metaplasticcells (endocervical component)are present.[facility] INTER[facility]ACED A#[id number] County Memorial HospitalCommunson [facility] on above:Satisfactory for evaluation. Endocervical and/or squamous metaplasticcells (endocervical component)are present.11-09-2024 NotePap Smear Specimen AdequacyMarch 2024 11:59pmComment.Satisfactory for evaluation. Endocervical and/or squamous metaplasticcells (endocervical component)are present.[facility] INTER[facility]ACED A#[id number] County Memorial HospitalCommun[facility] on above:Satisfactory for evaluation. Endocervical and/or squamous metaplasticcells (endocervical component)are present.11-09-2024 NotePap Smear Specimen AdequacyMarch 2024 11:59pmComment.Satisfactory for evaluation. Endocervical and/or squamous metaplasticcells (endocervical component)are present.[facility] INTER[facility] A#[id number] County Memorial HospitalCommunson [facility] on above:Satisfactory for evaluation. Endocervical and/or squamous metaplasticcells (endocervical component)are present.11-08-2024 Evaluation note* Diagnosis Onset Date Resolution Status Admit Date Anxiety and depression chronic Ma rch 2024 5:23pm Bloating chronic November 08 5:23pm [...] Post-menopausal bleeding acute January 12, 2025 2:02pm [facility] Work Phone: 1(578) 784-395703-26-2025 Evaluation note* Diagnosis Onset Date Resolution Status Admit Date Anxiety and depression chronic [facility] 2024 5:23pm Bloating chronic November 08 5:23pm Chronic constipation chronic Rolan 2024 5:23pm Hyperlipidemia chronic October 5:23pm Hypertension [...] Post-menopausal bleeding acute January 12, 2025 2:02pm Post-menopausal bleeding acute January 30, 2025 12:07pm [facility] Work Phone: 1(331) 435-641102-04-2025 Evaluation note* Diagnosis Onset Date Resolution Status Admit Date Constipation acute September 7:09am Bloating chronic September 19, 2024 7:09am Gastroesophageal reflux disease noneactive September 19 7:09am Anxiety and depression chronic [facility] 2024 5:23pm Bloating chronic November 08 5:23pm Chronic constipation chronic Rolan h 2024 5:23pm Hyperlipidemia chronic October 5:23pm Hypertension chronic November 08, 2024 5:23pm Migraines chronic November 08 5:23pm Encounter for well woman exbrandon m with routine gynecological exam acute November 09, 2024 8:04am Post-menopausal bleeding acute November 09, 2024 8:04am [facility] Work Phone: 1(332) 411-690302-04-2025 Evaluation note* Diagnosis Onset Date Resolution Status Admit Date Constipation acute September 7:09am Bloating chronic September 19, 2024 7:09am Gastroesophageal reflux disease noneactive September 19 7:09am Anxiety and depression chronic [facility] 2024 5:23pm Bloating chronic November 08 5:23pm [...] 2024 5:22am Bloating chronic November 29 5:22am [facility] Work Phone: 1(758) 354-977702-04-2025 Evaluation note* Diagnosis Onset Date Resolution Status Admit Date Constipation acute September 7:09am Bloating chronic September 19, 2024 7:09am Gastroesophageal reflux disease noneactive September 19 7:09am Anxiety and depression chronic [facility] 26th, 2025 5:23pm Bloating chronic November 08 5:23pm Chronic [...] Abdominal pain inactive December 28, 2024 6:52am [facility] Work Phone: 1(764) 937-541702-04-2025 Evaluation note* Diagnosis Onset Date Resolution Status Admit Date Constipation acute September 7:09am Bloating chronic September 19, 2024 7:09am Gastroesophageal reflux disease noneactive September 19 7:09am Anxiety and depression chronic [facility] 2024 5:23pm Bloating chronic November 08 5:23pm [...] Post-menopausal bleeding acute January 12, 2025 2:02pm [facility] Work Phone: [phone]) [phone] Telephone encounter Note* Telephone Encounter - Nessa Dior LPN - 06/26/2024 2:53 PM EST Addressed at office visit 06/26/24 [facility]11-11-2024 Miscellaneous Notes* Telephone Encounter - Nessa Dior LPN - 06/26/2024 2:53 PM EST Addressed at office visit 06/26/24 documented in this encounterK[facility]11-[facility]-2024 History of Present illness Narrative* Toi Olivares RT(Harriett) - 06/26/2024 9:30 AM EST Radiology Service [...] PATIENT PRESENTS WITH AN IMPLANTABLE OR ATTACHED UNIT LEADER: No RADIOLOGY DEPARTMENT: General X-ray: Exam(s) Completed: Pelvis X-Ray: Pelvis with Hip Bilateral PERIPHERAL IV DATA: Not applicable SIGNED BY: RT Susanna(Harriett) June 26, 2024 10:09 AM documented in this encounterKettering [facility]11-11-2024 NoteHNO ID: [id number] Author: TOI OLIVARES RT(R) Service: ? Author Type: Psych Sales Specialist Type: Progress Notes Filed: 06/26/2024 10:21 Note [...] PATIENT PRESENTS WITH AN IMPLANTABLE OR ATTACHED UNIT LEADER: No RADIOLOGY DEPARTMENT: General X-ray: Exam(s) Completed: Pelvis X-Ray: Pelvis with Hip Bilateral PERIPHERAL IV DATA: Not applicable SIGNED BY: RT Susanna(R) June 26, 2024 10:09 [facility]11-11-2024 Instructions* Patient Instructions* Alejandrina Graham MD - 06/26/2024 9:04 AM EST Look up IT band syndrome and do the exercise for it; documented in this encounterKet[facility]11-11-2024 NoteHNO ID: [id number] Author: ALEJANDRINA GRAHAM MD Service: ? Author [...] Noticed it first at the trip to [place] last year, the pain is in the [...] the worst Suicide attempt by drug ingestion ([facility]) 2016 Vitamin D deficiency PAST SURGICAL HISTORY Procedure Laterality Date APPENDECTOMY CALCULUS INFRARED SPECTROSCOPY CARPAL TUNNEL COLONOSCOPY FLX DX W/COLLJ SPEC WHEN PFRMD 01/26/2019 Colonoscopy ESOPHAGOGASTRODUODENOSCOPY TRANSORAL DIAGNOSTIC 01/26/2019 EGD S BALLOON,UTERINE ABLATION [address] 1997 [place] FAM[facility] HISTORY Problem Relation Age of Onset [...] reviewed and discussed today Current Outpatient Medications: Z-P8-pajt-qji-iogdn-jvbb-herb (IMMUNE SUPPORT, VIT C,D,ZINC,) 180 mg-10 mcg- 5.5 mg-150 mg cap Lactobacillus rhamnosus GG (CULTURELLE ORAL) bismuth subsalicylate (DIGESTIVE RELIEF ORAL) QCTTK-HIVZANJDT-UTJURYMKO MISC propranolol ER (INDERAL LA) 60 mg 24 hr capsule venlafaxine ER (EFFEXOR XR) 37.5 mg 24 hr capsule Iyocdhibkhbwt-Kbeurjqc-Hllxfu (MULTIVITAMIN 50 PLUS) tab albuterol HFA (PROVENTIL [...] along the IT Ban (more content not included)...[facility]11-11-2024 History of Present illness Narrative* Alejandrina [...] Noticed it first at the trip to [place] last year, the pain is in the [...] TRANSORAL DIAGNOSTIC 01/26/2019 EGD S BALLOON,UTERINE ABLATION [address]37 1995 [place] FAMILY HISTORY Problem Relation Age of Onset [...] reviewed and discussed today Current Outpatient Medications: H-T9-clfo-ykk-kojer-pmei-herb (IMMUNE SUPPORT, VIT C,D,ZINC,) 180 mg-10 mcg- 5.5 mg-150 mg cap Lactobacillus rhamnosus GG (CULTURELLE ORAL) bismuth subsalicylate (DIGESTIVE RELIEF ORAL) ICUWF-HRZUNCFQY-BGZXWNEPE MISC propranolol ER (INDERAL LA) 60 mg 24 hr capsule venlafaxine ER (EFFEXOR XR) 37.5 mg 24 hr capsule Nftwbbyaxogho-Zjouoxdo-Uaxjaz (MULTIVITAMIN 50 PLUS) tab albuterol HFA (PROVENTIL [...] HIP Alejandrina Graham MD documented in this encounterKettering [facility]08-21-2024 NoteHNO ID: [id number] Author: LAUREL MURRY APRN.HYGIENE ASSISTANT Service: ? Author Type: Nurse Practitioner Type: [...] date. Medications Current Outpatient Medications Medication Sig X-W4-ihze-zjl-vexei-czdq-herb (IMMUNE SUPPORT, VIT C,D,ZINC,) 180 mg-10 mcg- 5.5 mg-150 mg cap Take 2 capsules by mouth once daily. calcium cit/vit D3/isoflavon 2 (MENOPAUSE RELIEF ORAL) Take 2 capsules by mouth once daily. Lactobacillus rhamnosus GG (CULTURELLE ORAL) Take 1 capsule by mouth once daily. bismuth subsalicylate (DIGESTIVE RELIEF ORAL) Take 1 tablet by mouth two times a day. PLODF-HQLZXXFBO-XRLQTMYHK MISC 1 tablet as needed. propranolol ER (INDERAL LA) 60 mg 24 hr capsule take 1 capsule by mouth every day venlafaxine ER (EFFEXOR XR) 37.5 mg 24 hr capsule Take 1 capsule by mouth once daily. Kicwjixxiybjv-Fzhbptsp-Lmtdgf (MULTIVITAMIN 50 PLUS) tab Take 1 tablet [...] PANEL Portions of thi (more content not included)...[facility] 04-05-2024 History of Present illness Narrative* Laurel Murry APRN.HYGIENE ASSISTANT - 04/05/2024 9:36 AM EDT SUBJECTIVE Polina [...] date. Medications Current Outpatient Medications Medication Sig T-H2-qqie-wlf-znovl-varf-herb (IMMUNE SUPPORT, VIT C,D,ZINC,) 180 mg-10 mcg- 5.5 mg-150 mg cap Take2 capsules by mouth once daily. calcium cit/vit D3/isoflavon 2 (MENOPAUSE RELIEF ORAL) Take 2 capsules by mouth once daily. Lactobacillus rhamnosus GG (CULTURELLE ORAL) Take 1 capsule by mouth once daily. bismuth subsalicylate (DIGESTIVE RELIEF ORAL) Take 1 tablet by mouth two times a day. INXKR-IECOWEBDD-ZPOXMRAOJ MISC 1 tablet as needed. propranolol ER (INDERAL LA) 60 mg 24 hr capsule take 1 capsule by mouth every day venlafaxine ER (EFFEXOR XR) 37.5 mg 24 hr capsule Take 1 capsule by mouth once daily. Ozhwfbobauakf-Ivbcftrv-Haklit (MULTIVITAMIN 50 PLUS) tab Take 1 tablet [...] appointment.. Laurel Murry APRN-LALI documented in this encounterK[facility]06-03-2024 Telephone encounter Note * Telephone Encounter - [...] Please advise. Thank you. Rafaela Hdz LPN. [facility]06-03-2024 Miscellaneous Notes* Telephone Encounter - Rafaela Hdz [...] you. Rafaela Hdz LPN. documented in this encounterKettering [facility]05-22-2024 NoteHNO ID: [id number] Author: LAUREL MURRY APRN.HYGIENE ASSISTANT Service: ? Author Type: Nurse Practitioner Type: [...] Take 1 capsule by mouth once daily. Nbovnixmcjgne-Ajfiiqwx-Wukrxp (MULTIVITAMIN 50 PLUS) tab Take 1 tablet [...] diagnoses and orders for (more content not included)...[facility]05-22-2024 History of Present illness Narrative* Laurel Murry APRN.[facility] - 01/05/2024 9:00 AM EDT SUBJECTIVE Polina [...] Take 1 capsule by mouth once daily. Jdokkvxevvcgi-Dypsgsjo-Itukfq (MULTIVITAMIN 50 PLUS) tab Take 1 tablet [...] on chronic conditions and medications.. Laurel Murry APRN-LALI documented in this encounterKettering [facility]05-16-2024 Note* Letter - Coordinator, Mammography - 12/30/2023 8:36 AM EDT December 30, 2023 PID: [id number] Polina Mcbr[place] [address] [address] Dear Ms. Thomson, We are pleased to [...] report will be kept on file at [facility] as part of your permanent medical record and are available for your continuing care. Thank you for allowing us to help in meeting your health care needs. Sincerely, Dr. Head Interpreting Radiologist [facility] (Normal over 40) [facility]05-16-2024 Miscellaneous Notes* Letter - Coordinator, Mammography - 12/30/2023 8:36 AM EDT December 30, 2023 PID: [id number] Polina JPedro Luis Thomson [address] [address] Dear Ms. Thomson, We are pleased to [...] report will be kept on file at [facility] as part of your permanent medical record and are available for your continuing care. Thank you for allowing us to help in meeting your health care needs. Sincerely, Dr. Head Interpreting Radiologist [facility] (Normal over 40) documented in this encounterKettering [facility]05-15-2024 History of Present illness Narrative* Stacy Persaud [...] PATIENT PRESENTS WITH AN IMPLANTABLE OR ATTACHED UNIT LEADER: No RADIOLOGY DEPARTMENT: Mammography PERIPHERAL IV DATA: Not applicable SIGNED BY: Miguel Waite December 29, 2023 9:08 AM documented in this encounterKettering Health [facility] Campus05-15-2024 NoteHNO ID: [id number] Author: STACY PERSAUD Mammo Tech Service: ? Author Type: Psych Sales Specialist Type: Progress Notes Filed: 12/29/2023 09:09 Note [...] PATIENT PRESENTS WITH AN IMPLANTABLE OR ATTACHED UNIT LEADER: No RADIOLOGY DEPARTMENT: Mammography PERIPHERAL IV DATA: Not applicable SIGNED BY: Stacy Persaud [employer] December 29, 2023 9:08 [facility]04-02-2024 NotePatient Outreach (INTMMN) POLINA THOMSON ([id number]) 1965 F Date Time Provider Department 11/16/23 ALEJANDRINA GRAHAM INTMMN During your visit today, we recorded the following information about you: Allergies As of Date: 11/16/2023 Noted Allergy Reaction PERFUMES 06/23/2023 12 - Shortness of Breath Comments: coughing SEASONAL ALLERGIES 08/04/2018 14 - Other: See Comments Comments: Sneezing, runny nose Date Reviewed: 09/22/2023 Reviewed by: Laurel Murry APRN.HYGIENE ASSISTANT - Fully Assessed Visit Diagnosis:Hyperlipidemia [E78.5] Order(s):LIPID PANEL BASIC [SQLIPB] Order #: [id number] FUTURE Prescriptions as of 11/19/2023 - LORazepam (ATIVAN) 0.5 mg Take 0.5 mg by mouth. - venlafaxine ER (EFFEXOR XR) 37.5 mg 24 hr capsule Take 1 capsule by mouth once daily. - propranolol ER (INDERAL LA) 60 mg 24 hr capsule Take 1 capsule by mouth once daily. - Laarjlffqllfd-Wfjmhzug-Jvxnbj (MULTIVITAMIN 50 PLUS) tab Take 1 tablet by mouth once daily. - albuterol HFA (PROVENTIL HFA, VENTOLIN HFA) 90 mcg/actuation inhaler Inhale 2 Puffs as instructed every 4 hours as needed for wheezing/shortness of breath. Problem List As Of Date 11/16/2023 Noted Resolved Hyperlipidemia [E78.5] 12/15/2022 Anxiety and depression [F41.9, F32.A] 09/22/2023 Moderate persistent asthma without complication*09/22/2023 Encounter Status:Closed by FERNY MCGINNISUSER on 11/19/23[facility] 09-22-2023 NoteHNO ID: [id number] Author: LAUREL MURRY APRN.HYGIENE ASSISTANT Service: ? Author Type: Nurse Practitioner Type: [...] 0.5 mg Take 0.5 mg by mouth. Iafycyxlpyfzz-Rqpxbgvh-Lsiwor (MULTIVITAMIN 50 PLUS) tab Take 1 tablet [...] of this document we (more content not included)...[facility]02-07-2024 History of Present illness Narrative* Laurel Murry APRN.HYGIENE ASSISTANT - 09/22/2023 9:09 AM EST SUBJECTIVE Polina [...] 0.5 mg Take 0.5 mg by mouth. Vzneplxzteeyd-Tjxnrggl-Pxepqq (MULTIVITAMIN 50 PLUS) tab Take 1 tablet [...] medication.. Laurel Murry APRN-LALI documented in this encounterKettering [facility]01-10-2024 NotePatient Outreach (INTMMN) POLINA THOMSON ([id number]) 1965 F Date Time Provider Department 08/25/23 ALEJANDRINA GRAHAM During your visit today, we recorded the following information about you: Allergies As of Date: 08/25/2023 Noted Allergy Reaction PERFUMES 06/23/2023 12 - Shortness of Breath Comments: coughing SEASONAL ALLERGIES 08/04/2018 14 - Other: See Comments Comments: Sneezing, runny nose Date Reviewed: 06/23/2023 Reviewed by: Laurel Murry APRN.CNP - Fully Assessed Visit Diagnosis:Encounter for screening mammogram for breast cancer [Z12.31] Order(s):[facility] SCREENING [3648408] Order #: [id number] FUTURE Prescriptions as of 08/30/2023 - sennosides (SENNA-GEN ORAL) Take 2 tablets by mouth once daily. - Zrmfptkrjhzff-Ozoszemv-Ungvdj (MULTIVITAMIN 50 PLUS) tab Take 1 tablet [...] 12/15/2022 Encounter Status:Closed by DION MCGINNIS on 08/30/23[facility] 06-23-2023 Instructions* Patient Instructions* Laurel Murry APRN.CNP - 06/23/2023 9:58 AM EST [email or web address] nal-videos#zzsqradgzx-dwe-burriyk-pain-tab documented in this encounterK[facility]11-08-2023 History of Present illness Narrative* Laurel Murry APRN.HYGIENE ASSISTANT - 06/23/2023 9:27 AM EST SUBJECTIVE Polina [...] with the circumstances. Journals. Good support from zoroastrian and jie. NO thoughts of self harm, [...] Take 2 tablets by mouth once daily. Pbnnywoxuiwdi-Xrvuobek-Hawdtz (MULTIVITAMIN 50 PLUS) tab Take 1 tablet [...] (around 09/23/2023) for recheck on new medication.. KRYSTLE Saeed documented in this encounterK[facility]07-03-2023 History of Present illness Narrative* Laurel Murry [...] bites but has them around her home. [place] like she was drooling earlier, maybe right [...] file. Laurel Murry APRN-LALI documented in this encounterK[facility]05-02-2023 Instructions* Patient Instructions* Doris Sorto MD - [...] such as brie, Camembert, cheddar and feta [place] milk Grains like rice, quinoa and oats Vegetables like eggplant, potatoes, tomatoes, cucumbers and zucchini Fruits such as grapes, oranges, strawberries, blueberries and pineapple Mylicon (simethicone) BEANO documented in this encounterK[facility]05-02-2023 History of Present illness Narrative* Doris Sorto [...] TRANSORAL DIAGNOSTIC 01/26/2019 EGD S BALLOON,UTERINE ABLATION 12274 1997 [place] Current Outpatient Medications Medication Sig venlafaxine ER [...] entered by the nurse and reviewed by tn Nursing Notes: Aniyah Cho RN 12/15/2022 1:16 [...] Straightforward Doris Sorto MD documented in this encounterK[facility]05-02-2023 Nurse Note* Aniyah Cho RN - 12/15/2022 [...] 2018 Aniyah Cho RN documented in this encounterK[facility]05-02-2023 History of Present illness Narrative* Alejandrina Graham [...] great. She got a new job, at [employer] at the [email or web address] unit and it is eye opening for [...] TRANSORAL DIAGNOSTIC 01/26/2019 EGD S BALLOON,UTERINE ABLATION 70077 1997 [place] FAMILY HISTORY Problem Relation Age of Onset [...] INHALER Alejandrina Graham MD documented in this encounterK[facility]05-01-2023 Miscellaneous Notes* Telephone Encounter - Lissy Donis [...] 12/14/2022 9:18 AM EDT Pharmacy verified in [facility] Patient has been identified by name and [...] advise. Noemy Nix Pss documented in this encounterK[facility]12-10-2022 History of Present illness Narrative* Esha Rollins APRN.HYGIENE ASSISTANT - 07/25/2022 8:43 AM EST Subjective Sinus Problem Associated symptoms include congestion, coughing, headaches and a sore throat. Pertinent negatives include no chills, fever or myalgias. Polina Thomson is a 57 year old female who presents with 7days of cough, congestion, headache, sinus pressure and swelling. She has not had a fever. She has had sick contacts at work. She has taken Candida [place] at home for illness. Review of Systems [...] TRANSORAL DIAGNOSTIC 01/26/2019 EGD S BALLOON,UTERINE ABLATION 01561 1997 [place] ALLERGIES Seasonal Allergies MEDICATIONS pantoprazole DR (PROTONIX) [...] illness Esha Rollins APRN.CNP documented in this encounterKettering [facility]12-10-2022 Instructions* Patient Instructions* Esha Rollins APRN.CNP - [...] Sinusitis Patient Education What is Sinusitis? Sinusitis [tsjf-mgi-thbu-tis] is inflammation of the sinuses or swelling [...] help. You may be instructed to take vrfm-mfb-zxalzoy medications for symptoms. including fever reducers acetaminophen or ibuprofen, nasal saline spray, cough and cold preparations and decongestants as prescribed by the physician, nurse practitioner or physician litigation legal assistant. Self-Care and Prevention: Rest Fluids for hydration Good hand washing Humidifier Avoid smoking and exposure to second hand smoke Avoid sick contacts documented in this encounterKet[facility]11-25-2022 History of Present illness Narrative* Alejandrina Graham [...] TRANSORAL DIAGNOSTIC 01/26/2019 EGD S BALLOON,UTERINE ABLATION 81011 1997 [place] Family History FAMILY HISTORY Problem Relation Age [...] miralax Alejandrina Graham MD documented in this encounterKettering [facility]11-10-2022 Miscellaneous Notes* Telephone Encounter - Nila Ott RN - 06/25/2022 1:58 PM EST Patient returned call and given provider's message below. Pt transferred to receptionist scheduler to schedule with Medical Genetics. Ellis Ott RN * Telephone Encounter - Suri Banks Pss - 06/25/2022 11:58 AM EST Left message for patient to contact office to schedule with medical genetics. * Telephone Encounter - Alejandrina Graham MD - 06/22/2022 8:52 PM EST Please assist patient in getting scheduled with medical genetics Regards, Alejandrina Graham MD documented in this encounterKettering [facility]11-03-2022 Miscellaneous Notes* Telephone Encounter - Maninder Lui RPh - 06/18/2022 9:[address] Graham, At [facility] they have a pharmacist that specializes in pharmacogenomics and is able to order, interpret and make recommendations for genetic testing. I think she would benefit from setting up a visit there. From information they have shared with me in the past, they perform a cheek swab as it ismore cost effective then doing a blood draw for genetic testing. [email or web address] I have pended the referral for pharmacogenomics. The phone number for patient to schedule is as follows: [phone]. They may be able to offer virtual visits if patient not able to travel to [place] for appointment. Maninder Lui, PharmD, BCACP Primary [...] Regards, Alejandrina Graham MD documented in this encounterKettering [facility]10-25-2022 History of Present illness Narrative* Alejandrina Graham [...] TRANSORAL DIAGNOSTIC 01/26/2019 EGD S BALLOON,UTERINE ABLATION 72522 1997 [place] FAMILY HISTORY Problem Relation Age of Onset [...] RELEASE Alejandrina Graham MD [facility] Author Michael Grier [facility] Note Date/Time November 29, 2024 6:3 8am [facility] Medical Records Department [address] [place] [id number] Pre-Anesthesia Evaluation 11/29/24 0638 MR#: [id number] Acct: [id number] Name: POLINA THOMSON Rep #:[id number] : 1965 59 From: Michael Grier MD PCP: Dr. Willie Adams MD Status:R EG SDC Y Race: C Location: [place] [address] ASA Classification* ASA Classification ASA Classification: 2 [...] Procedure(s): EGD Anesthesia History Anesthesia History - recovery coach: Anesthesia History - recovery coach Hx Hospitalization No 11/24/24 13:43 Any Problems [...] take am of surgery PONV PONV - recovery coach: PONV - recovery coach Female Yes 11/24/24 13:43 HX of Motion [...] 11/29/24 05:40 Respiratory Assessment Respiratory Assessment - recovery coach: Respiratory Tract Infection Hx - recovery coach Hx Respiratory Tract Infection No 11/24/24 13:43 STOP Sleep Apnea STOP Sleep Apnea - recovery coach: STOP Sleep Apnea - recovery coach Hx Hypertension No 11/24/24 13:43 Hx Sleep [...] Tobacco Use History Tobacco Use History - recovery coach: Tobacco Use History - recovery coach Tobacco Use Smoking Status Former smoker 11/24/24 13:43 Hx Tobacco Use No 11/24/24 13:43 Years Smoking Packs Smoked per Day Smoking Cessation Date was No - quit smoking greater 11/24/24 13:43 within the last 15 years than 15 years ago Hx Smoking Cessation Date Hx Smoking Cessation Counseling Hematologic Medial History Hematologic Hx - recovery coach: Hematologic Medical Hx - log cooker Hx of Blood Transfusion No 11/24/24 13:43 [...] confused, unrespo /Reproduction History /Reproductive History - recovery coach: /Reproductive Hx- recovery coach Hx Now No 11/24/24 13:43 Gestational Age [...] (vitamin B12) 500 mcg mcg PO 09/08/24 04/12/08 History chewable tablet propranolol 60 mg capsule,24 60 mg PO QHS 09/08/24 History hr,extended release dxylbtis-rnh-hnfav ac 400 tab PO 11/08/24 11/27/24 His tory mcg-calcium carb 500 mg-vit K1 20 mcg tablet (Women's 50 Plus Multivitamin) sennosides 8.6 mg capsule (senna) 8.6 mg PO QDAY PRN c onstipation 11/08/24 Unknown History vit C 180 mg-D3 10 mcg-zinc 5.5 cap PO 11/08/24 History vy-pptkgl-fvixgpe-calvin-herb capsule (Immune Support (vit c, d and [...] 3 current occupational status: employed current occupation: [employer] current occupational exposures/hazards: No pets [...] Michael Wen Signature: Date CC: ~ Signed [facility] Work Phone: Consult note Author Lele Keys [facility] Note Date/Time November 29, 2024 7:0 9am [facility] Medical Records Department [address] [place] [address] Anesthesia Postop Eval I 11/29/24707 MR#: [id number] Acct: [id number] Name: POLINA THOMSON Rep #:[id number] : 1965 59 From: Lele Keys PCP: Dr. Willie Adams MD Status:R [facility] Y Race: C Location: [place] [address] Anesthesia: Postop Eval I Current Vital Signs [...] document: Postop Eval 1 completed: Yes 11/29/24 0709 <Electronically signed by Lele Keys > Date _ Lele Wen Signature: Date CC: ~ Signed [facility] Work Phone: Consult note Author Micahel Grier [facility] Note Date/Time November 29, 2024 7:4 8am [facility] Medical Records Department [address] [place] [address] Anesthesia Postop Eval II 11/29/24729 MR#: [id number] Acct: [id number] Name: POLINA THOMSON Rep #:[id number] : 1965 59 From: Michael Grier MD PCP: Dr. Willei Adams MD Status:R EG [facility] Y Race: C Location: [place] [address] Anesthesia Postop Eval I Sum Postop Eval [...] Level: 0 nausea: No Vomiting: No 11/29/24729 <Electronically signed by Michael Grier MD > Date _ Michael Wen Signature: Date CC: ~ Signed [facility] Work Phone: Consult note Author Lakhwinder Perez [facility] Note Date/Time January 30, 2025 5:00 pm [facility] Medical Records Department [address] [place], [place] [address] [address] Anesthesia Postop Eval I 01/30/251536 MR#: [id number] Acct: [id number] Name: POLINA THOMSON Rep #:[id number] : 1965 59 From: Lakhwinder THOMASON PCP: Dr. Willie Adams MD Status:R EG [facility] Y Race: C Location: [place] [address] Anesthesia: Postop Eval I Current Vital Signs Temperature: 97.2 F Pulse Rate: 54 Blood Pressure: 108/56 Respiratory Rate: 16 Pulse Ox: 97 Assessment Airway patent: Yes Spontaneous unlabored respirations: Yes nausea: No Vomiting: No Anesthesia Complication: No Fluid Hydration Crystalloid volume administer (ml): 900 Total IV fluid infused: 900 Progress Note Anesthesia document: Postop Eval 1 completed: Yes 01/30/251536 <Electronically signed by Lakhwinder Perez CRNA> Date _ Lakhwinder Perez CRNA Cosigner Signature: Date CC: ~ Signed [facility] Work Phone: Discharge summary Author Gayatri Weinstein [facility] Note Date/Time January 30, 2025 5:00 pm [facility] Medical Records Department [address] [place] [address] Instructions for Home/Discharge Instructions 01/30/25 1635 MR#: [id number] Acct: [id number] Name: POLINA THOMSON Rep #:[id number] : 1965 59 From: Gayatri balderas MD PCP: Dr. Willie Adams MD Status:R EG [facility] Discharge Instructions Diet Discharge Diet: No restrictions DC O2, CPAP, BIPAP needs Home O2 Discharge instructions: No Dressing / Incision Discharge Activity: Return to Normal Activity, May Shower and May Take a Tub Bath (after 1 week) May resume sexual activity in: 1-2 weeks Weight Bearing Status: Weight bearing as tolerated Lifting Restrictions: none Dressing / Incision Call your doctor if you observe: Fever of 101 or Higher, Using more than 1 pad per hour, Shortness of breath and Uncontrolled pain Follow Up Care Please Follow Up With: Gayatri Weinstein MD When: Call [phone] to schedule appointment. Test Results: Test results from this visit will be discussed in further detail at your follow- up appointment, if applicable. Discharge Plan Admission Attending Provider: Gayatri Weinstein Primary Care Provider: Willie Adams Instructions Print Language: Chadian Discharge Orders/Prescriptions Prescriptions: No Action Women's 50 Plus Multivitamin 400 mcg-500 mg calcium-20 mcg tablet 1 tab PO .QD Voquezna 10 mg tablet 10 mg PO QDAY Qty: 30 2RF misoprostol [Cytotec] 200 mcg tablet 200 mcg PO .complex Qty: 2 1RF Rx Instructions: take the night before and two hours prior to the procedure ibuprofen 600 MG tablet 600 mg PO Q6H PRN PRN (Reason: Pain Score 1-10/10) Qty: 20 0RF venlafaxine 75 mg capsule,extended release 24hr 75 mg PO QHS sumatriptan succinate [Imitrex] 25 mg tablet See Rx Instructions PO .COMPLEX PRN (Reason: migraine headache) Rx Instructions: take 1 tab at onset of headache; if no relief may repeat 1 tab after at least 2 hrs; max = 4 tabs/24 hr orally PRN; magnesium 250 mg tablet 250 mg PO QHS propranolol 60 mg capsule,extended release 24 hr 60 mg PO QHS mecobalamin (vitamin B12) 500 mcg tablet,chewable 500 mcg PO .QD senna 8.6 mg capsule 8.6 mg PO QDAY PRN (Reason: constipation) famotidine 40 mg tablet 40 mg PO BID Qty: 60 1RF Disposition Disposition (needs filled in before D/C Order can be placed): Home, Self Care 01/30/25 5075<Electronically signed by Gayatri Weinstein MD>Gayatri Weinstein MD CC: Dr. Willie Adams MD ~ Signed [facility] Work Phone: Evaluation note* Diagnosis Anxiety and [...] unspecified single disease [facility]* Diagnosis Anxiety and depression- Primary Dysthymic disorder [facility]* Diagnosis Anxiety and depression- Primary Dysthymic disorder Belching Flatulence, eructation, and gas pain Constipation, unspecified constipation type documented [facility]* Diagnosis Bacterial sinusitis- Primary Unspecified sinusitis (chronic) [facility]* Diagnosis Encounter for screening mammogram for breast cancer [facility]* Diagnosis Hyperlipidemia, unspecified hyperlipidemia type- Primary Anxiety and depression Dysthymic disorder Belching Flatulence, eructation, and gas pain RUQ pain Abdominal pain, right upper quadrant Allergy to perfume Allergy, unspecified not elsewhere classified Airway compromise Other diseases of respiratory system, not elsewhere classified Panic attacks Panic disorder without agoraphobia [facility] Diagnosis Eructation Flatulence, eructation, and gas pain Abdominal bloating Flatulence, eructation, and gas pain RUQ pain Abdominal pain, right upper quadrant [facility]* Diagnosis Anxiety and depression Dysthymic disorder [facility]* Diagnosis Rash and nonspecific skin eruption- Primary Rash and other nonspecific skin eruption Arthralgia, unspecified joint Malaise Other malaise and fatigue documented [facility]* Diagnosis Anxiety and depression- Primary Dysthymic disorder Panic attacks Panic disorder without agoraphobia Moderate persistent asthma without complication Unspecified asthma Allergy to perfume Allergy, unspecified not elsewhere classified Pain in right leg documented [facility]* Diagnosis Primary hypertension- Primary Unspecified essential hypertension Anxiety and depression Dysthymic disorder Moderate persistent asthma without complication Unspecified asthma Vision disturbance Unspecified visual disturbance Encounter for therapeutic drug monitoring [facility]* Diagnosis Hyperlipidemia Other and unspecified hyperlipidemia [facility]* Diagnosis Encounter for screening mammogram for breast cancer [facility]* Diagnosis Primary hypertension- Primary Unspecified essential hypertension Anxiety and depression Dysthymic disorder Hyperlipidemia, unspecified hyperlipidemia type [facility]* Diagnosis Thyroid enlargement- Primary Goiter, unspecified Weight gain Abnormal weight gain Anxiety and depression Dysthymic disorder Encounter for therapeutic drug monitoring Thyroid enlargement Goiter, unspecified [facility] this [facility]* Diagnosis Thyroid enlargement Goiter, unspecified [facility]* Diagnosis Trochanteric bursitis of right hip- Primary Enthesopathy of hip region Anxiety and depression Dysthymic disorder Left hip pain Pain in joint, pelvic region and thigh [facility]* Diagnosis Anxiety and depression Dysthymic disorder [facility]* Diagnosis Left hip pain Pain in joint, pelvic region and thigh [facility] Author Adria Cisse [facility] Note Date/Time November 29, 2024 6:4 7am [facility] Medical Records Department [address] [place] [address] History & Physical Exam 11/29/24 0645 MR#: [id number] Acct: [id number] Name: POLINA THOMSON Rep #:[id number] : 1965 59 From: Adria Cisse DO PCP: Dr. Willie Adams MD Status:R EG [facility] Location: [place] [address] HPI - General General Date of Admission: 11/29/24 Date of Service: 11/29/24 HPI Narrative POLINA THOMSON, is a 59 F who presents Chief Complaint: bloating Details: PLOINA THOMSON, is a 59 F who presents to the office today for establishment with [facility]. Pt has had GI issues for many [...] colonoscopy was in 2019 with normal findings. [facility] Medical History (Updated 11/29/24 @ [...] mg PO QHS 09/08/24 History hr,extended release edxnqcdb-bze-muodb ac 400 tab PO 11/08/24 11/27/24 His tory mcg-calcium carb 500 mg-vit K1 20 mcg tablet (Women's 50 Plus Multivitamin) sennosides 8.6 mg capsule (senna) 8.6 mg PO QDAY PRN c onstipation 11/08/24 Unknown History vit C 180 mg-D3 10 mcg-zinc 5.5 cap PO 11/08/24 History tu-kwslep-axlhocs-calvin-herb capsule (Immune Support (vit c, d and [...] 3 current occupational status: employed current occupation: [place] [employer] current occupational exposures/hazards: No pets and animals: [...] disease): 11/29/24 0647 <Electronically signed by Adria Cisse DO> Cosigner Signature (if applicable): CC: Dr. Willie Adams MD; Adria Cisse DO~ Signed [facility] Work Phone: Reason for referral (narrative)* Diagnostic Procedure Only (Routine) - Pending Review Specialty Diagnoses / Procedures Referred By Contac t Referred To Contact BR IMAGING Diagnoses Encounter for screening mammogram for breast cancer Procedures TORSTEN SCREENING SCREENING MAMMOGRAPHY BI 2-VIEW BREAST INC CAD Alejandrina Graham MD [address] [place], [place] [id number] [facility] [address] [place] [address] Referral ID Status Reason Start Date Expiration Date Visits Requested Visits Authorized [id number] Pending Review Auto-Generat ed Referral 08/26/2022 09/25/2023 1 1 [facility] for referral (narrative)* Diagnostic Procedure Only (Urgent) - Closed Specialty Diagnoses / Procedures Referred By Contac t Referred To Contact US IMAGING Diagnoses Thyroid enlargement Procedures US THYROID/PARATHYROID US THYROID/PARATHYROID US SOFT TISSUE HEAD & NECK REAL TIME IMGE DOCLaurel Bunch APRN.HYGIENE ASSISTANT [address] [place] [address] [place] [address] Referral ID Status Reason Start Date Expiration Date V isits Requested Visits Authorized [id number] Closed Auto-Generate d Referral 04/05/2024 05/05/2025 1 1 * Diagnostic Procedure Only (Urgent) - Closed Specialty Diagnoses / Procedures Referred By Contac t Referred To Contact US IMAGING Diagnoses Thyroid enlargement Procedures US THYROID/PARATHYROID US THYROID/PARATHYROID US SOFT TISSUE HEAD & NECK REAL TIME IMGE Laurel Hebert APRN.CNP [address] [place] [address] [place] [address] Referral ID Status Reason Start Date Expiration Date V isits Requested Visits Authorized [id number] Closed Auto-Generate d Referral 04/05/2024 05/05/2025 1 1 [facility] for referral (narrative)* Diagnostic Procedure Only (Urgent) - Closed Specialty Diagnoses / Procedures Referred By Britany zapien Referred To Contact US IMAGING Diagnoses Thyroid enlargement Procedures US THYROID/PARATHYROID US THYROID/PARATHYROID US SOFT TISSUE HEAD & NECK REAL TIME IMGE DOCM Laurel Murry APRN.CNP [address] [place] [address] [place] [address] Referral ID Status Reason Start Date Expiration Date V isits Requested Visits Authorized [id number] Closed Auto-Generate d Referral 04/05/2024 05/05/2025 1 1 [facility] for referral (narrative)* Diagnostic Procedure Only (Routine) - Pending Review Specialty Diagnoses / Procedures Referred By Britany zapien Referred To Contact XR IMAGING Diagnoses Left hip pain Procedures XR HIP BILATERAL 5V PEL/AP/LAT EACH HIP RADEX HIPS BILATERAL WITH PELVIS MINIMUM 5 VIEWS Alejandrina Graham MD [facility] [place] [address] [place] [address] Referral ID Status Reason Start Date Expiration Date Visits Requested Visits Authorized [id number] Pending Review Auto-Generat ed Referral 4 07/26/2025 1 1 [facility] for referral (narrative)No reason for referral information availableWThe [facility] Work Phone: Rezyml for visit Narrative* Diagnostic Procedure Only (Routine) - Closed Specialty Diagnoses / Procedures Referred By Britany zapien Referred To Contact BR IMAGING Diagnoses Encounter for screening mammogram for breast cancer Procedures TORSTEN SCREENING SCREENING MAMMOGRAPHY BI 2-VIEW BREAST INC CAD Alejandrina Graham MD [address] [place] [address] [facility] [address] [facility] [place] [address] Referral ID Status Reason Start Date Expiration Date V isits Requested Visits Authorized [id number] Closed Auto-Generate d Referral 08/25/2023 09/23/2024 1 1 [facility] for visit Narrative* Diagnostic Procedure Only (Urgent) - Closed Specialty Diagnoses / Procedures Referred By Contac t Referred To Contact US IMAGING Diagnoses Thyroid enlargement Procedures US THYROID/PARATHYROID US THYROID/PARATHYROID US SOFT TISSUE HEAD & NECK REAL TIME IMGE Laurel Hebert APRN.CNP [address] [place] [address] [place] [address] Referral ID Status Reason Start Date Expiration Date V isits Requested Visits Authorized [id number] Closed Auto-Generate d Referral 04/05/2024 05/05/2025 1 1 [facility] for visit Narrative* Diagnostic Procedure Only (Routine) - Pending Review Specialty Diagnoses / Procedures Referred By Contac t Referred To Contact XR IMAGING Diagnoses Left hip pain Procedures XR HIP BILATERAL 5V PEL/AP/LAT EACH HIP RADEX HIPS BILATERAL WITH PELVIS MINIMUM 5 VIEWS Alejandrina Graham MD [address] [place] [address] [place] [address] Referral ID Status Reason Start Date Expiration Date Visits Requested Visits Authorized [id number] Pending Review Auto-Generat ed Referral 07/26/2025 1 1 [facility] Summary Purpose Family History No Family History [...] Do you have a Healthcare Power of Accounting Consultant? Yes November 24, 2024 1:43pm Name of Medical Power of Accounting Consultant November 24, 2024 1:43pm Advance Directive Response Recorded Date/ Time Living Will Yes November 24, 2024 1:43pm Do you have a Healthcare Power of Accounting Consultant? Yes November 24, 2024 1:43pm Name of Medical Power of Accounting Consultant November 24, 2024 1:43pm Do you have a Healthcare Power of Accounting Consultant? Yes January 17, 2025 2:59pm Reason for Referral Specialty Diagnoses / Procedures Referred By Britany zapien Referred To Contact Diagnoses Allergy to perfume Airway compromise Alejandrina Graham MD [address] [place] [address] Referral ID Status Reason Start Date Expiration Date Visits Re quested Visits Authorized [id number] Closed 1 1 Specialty Diagnoses / Procedures Referred By Britany zapien Referred To Contact General Surgery Diagnoses RUQ pain Procedures CONSULT TO GENERAL SURGERY OFFICE/OUTPATIENT [facility] 60-74 MINUTES Alejandrina Graham MD [address] [place] [address] Referral ID Status Reason Start Date Expiration Date V isits Requested Visits Authorized [id number] Closed PCP Requested Referral 12/15/2022 12/15/2023 1 1 Chief Complaint and Reason for Visit Chief Complaint Admit Date Gastroesophageal reflux disease (GERD) F ebruary 2024 7:09am ABD PAIN October 04, 2024 1:03pm 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 PPW SENT November 08, 2024 5: 23pm E ORDERS November 09, 2024 6:4 0am 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 POST MENOPAUSAL [...] 2024 5:2 3pm Encounter for well woman mavis hankins with routine gynecological exam November 09, 2024 8:04am Post-menopausal bleeding November 09 8:04am Chief Complaint Admit Date Gastroesophageal reflux disease (GERD) F ebruary 2024 7:09am ABD PAIN October 04, 2024 1:03pm 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 SENT November 08, 2024 5: 23pm E ORDERS November 09, 2024 6:4 0am 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 POST MENOPAUSAL [...] 2024 5:2 3pm Encounter for well woman mavis hankins with routine gynecological exam November 09, 2024 8:04am Post-menopausal bleeding November 09 8:04am Post-menopausal bleeding November 23 2:50pm GERD (gastroesophageal reflux disease) A pril 2024 5:22am Bloating November 29, 2024 5:2 2am Chief Complaint Admit Date Gastroesophageal reflux disease (GERD) F [facility] 2024 7:09am ABD PAIN October 04, 2024 1:03pm 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 PPW SENT November 08, 2024 5: 23pm E ORDERS November 09, 2024 6:4 0am 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 POST MENOPAUSAL [...] 2024 5:2 3pm Encounter for well woman mavis hankins with routine gynecological exam November 09, [...] 7:09am ABD PAIN October 04, 2024 1:03pm 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 PPW SENT November 08, 2024 5: 23pm E ORDERS November 09, 2024 6:4 0am 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 POST MENOPAUSAL [...] 2024 5:2 3pm Encounter for well woman mavis hankins with routine gynecological exam November 09, [...] m Post-menopausal bleeding January 12, 2025 2:02pm Chief Complaint Admit Date ABD PAIN October 04, 2024 1:03pm 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 PPW SENT November 08, 2024 5: 23pm E ORDERS November 09, 2024 6:4 0am 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 POST MENOPAUSAL BLEEDING November 13 5:55pm EMB November 23, 2024 2:5 0pm 2 M FU December 13, 2024 8:4 0am Medication issues December 28, 2024 6:52a m Consult D&C January 12, 2025 2:02p m PREOP January 22, 2025 7:29a m ABD PAIN January 23, 2025 6:16 am Reason for Visit Admit Date Anxiety and depression November 08, 2024 5:23pm Bloating November 08, 2024 5:2 3pm Chronic constipation November 08, 2024 5: 23pm Hyperlipidemia November 08, 2024 5:2 3pm Hypertension November 08, 2024 5:2 3pm Migraines November 08, 2024 5:2 3pm Encounter for well woman exam with omayra bailey gynecological exam November 09, 2024 8:04am Post-menopausal [...] m Post-menopausal bleeding January 12, 2025 2:02pm Chief Complaint Admit Date ABD PAIN October 04, 2024 1:03pm 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 PPW SENT November 08, 2024 5: 23pm E ORDERS November 09, 2024 6:4 0am 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 POST MENOPAUSAL BLEEDING November 13 5:55pm EMB November 23, 2024 2:5 0pm 2 M FU December 13, 2024 8:4 0am Medication issues December 28, 2024 6:52a m Consult D&C January 12, 2025 2:02p m PREOP January 22, 2025 7:29a m ABD PAIN January 23, 2025 6:16 am Hysteroscopy,Dilation and Curettage January 30, 2025 7:35am Hysteroscopy,Dilation and Curettage January 30, 2025 12:07pm Reason for Visit Admit Date Anxiety and depression November 08, 2024 5:23pm Bloating November 08, 2024 5:2 3pm Chronic constipation November 08, 2024 5: 23pm Hyperlipidemia November 08, 2024 5:2 3pm Hypertension November 08, 2024 5:2 3pm Migraines November 08, 2024 5:2 3pm Encounter for well woman exam with omayra bailey gynecological exam November 09, 2024 8:04am Post-menopausal [...] m Post-menopausal bleeding January 12, 2025 2:02pm Post-menopausal bleeding January 30, 2025 12:07pm Chief Complaint Admit Date 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 PPW SENT November 08, 2024 5: 23pm E ORDERS November 09, 2024 6:4 0am 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 POST MENOPAUSAL BLEEDING November 13 5:55pm EMB November 23, 2024 2:5 0pm 2 M FU December 13, 2024 8:4 0am Medication issues December 28, 2024 6:52a m Consult D&C January 12, 2025 2:02p m PREOP January 22, 2025 7:29a m ABD PAIN January 23, 2025 6:16 am Hysteroscopy,Dilation and Curettage January 30, 2025 7:35am Hysteroscopy,Dilation and Curettage January 30, 2025 12:07pm 2 wk D&C hysteroscopy February 12, 2025 7: 52am Additional Source Comments INFORMATION SOURCE (unrecogn ized section and content) DATE CREATED AUTHOR 09/05/2020 [facility] DATE CREATED AUTHOR AUTHOR'S ORGANIZ ATION 04/10/2022 [facility] DATE CREATED AUTHOR AUTHOR'S ORGANIZ ATION 07/02/2024 [facility] DATE CREATED AUTHOR AUTHOR'S ORGANIZ ATION 02/12/2025 [facility] Source Comments (unrecognize d section and content) In the event this informatio n is protected by the Federal Confidentiality of Alcohol and Drug Abuse Patient Records regulations: The Federal rules restrict any use of the information to criminally investigate or prosecute any alcohol or drug abuse patient.[facility] the event this information is protected by the Federal Confidentiality of Alcohol and Drug Abuse Patient Records regulations: The Federal rules restrict any use of the information to criminally investigate or prosecute any alcohol or drug abuse patient.[facility] the event this information is protected by the Federal Confidentiality of Alcohol and Drug Abuse Patient Records regulations: The Federal rules restrict any use of the information to criminally investigate or prosecute any alcohol or drug abuse patient.[facility] the event this information is protected by the Federal Confidentiality of Alcohol and Drug Abuse Patient Records regulations: The Federal rules restrict any use of the information to criminally investigate or prosecute any alcohol or drug abuse patient.[facility] the event this information is protected by the Federal Confidentiality of Alcohol and Drug Abuse Patient Records regulations: The Federal rules restrict any use of the information to criminally investigate or prosecute any alcohol or drug abuse patient.[facility] the event this information is protected by the Federal Confidentiality of Alcohol and Drug Abuse Patient Records regulations: The Federal rules restrict any use of the information to criminally investigate or prosecute any alcohol or drug abuse patient.[facility] the event this information is protected by the Federal Confidentiality of Alcohol and Drug Abuse Patient Records regulations: The Federal rules restrict any use of the information to criminally investigate or prosecute any alcohol or drug abuse patient.[facility] the event this information is protected by the Federal Confidentiality of Alcohol and Drug Abuse Patient Records regulations: The Federal rules restrict any use of the information to criminally investigate or prosecute any alcohol or drug abuse patient.[facility] the event this information is protected by the Federal Confidentiality of Alcohol and Drug Abuse Patient Records regulations: The Federal rules restrict any use of the information to criminally investigate or prosecute any alcohol or drug abuse patient.[facility] the event this information is protected by the Federal Confidentiality of Alcohol and Drug Abuse Patient Records regulations: The Federal rules restrict any use of the information to criminally investigate or prosecute any alcohol or drug abuse patient.[facility] the event this information is protected by the Federal Confidentiality of Alcohol and Drug Abuse Patient Records regulations: The Federal rules restrict any use of the information to criminally investigate or prosecute any alcohol or drug abuse patient.[facility] the event this information is protected by the Federal Confidentiality of Alcohol and Drug Abuse Patient Records regulations: The Federal rules restrict any use of the information to criminally investigate or prosecute any alcohol or drug abuse patient.[facility] the event this information is protected by the Federal Confidentiality of Alcohol and Drug Abuse Patient Records regulations: The Federal rules restrict any use of the information to criminally investigate or prosecute any alcohol or drug abuse patient.[facility] the event this information is protected by the Federal Confidentiality of Alcohol and Drug Abuse Patient Records regulations: The Federal rules restrict any use of the information to criminally investigate or prosecute any alcohol or drug abuse patient.[facility] the event this information is protected by the Federal Confidentiality of Alcohol and Drug Abuse Patient Records regulations: The Federal rules restrict any use of the information to criminally investigate or prosecute any alcohol or drug abuse patient.[facility] the event this information is protected by the Federal Confidentiality of Alcohol and Drug Abuse Patient Records regulations: The Federal rules restrict any use of the information to criminally investigate or prosecute any alcohol or drug abuse patient.[facility] the event this information is protected by the Federal Confidentiality of Alcohol and Drug Abuse Patient Records regulations: The Federal rules restrict any use of the information to criminally investigate or prosecute any alcohol or drug abuse patient.[facility] the event this information is protected by the Federal Confidentiality of Alcohol and Drug Abuse Patient Records regulations: The Federal rules restrict any use of the information to criminally investigate or prosecute any alcohol or drug abuse patient.[facility] the event this information is protected by the Federal Confidentiality of Alcohol and Drug Abuse Patient Records regulations: The Federal rules restrict any use of the information to criminally investigate or prosecute any alcohol or drug abuse patient.[facility] the event this information is protected by the Federal Confidentiality of Alcohol and Drug Abuse Patient Records regulations: The Federal rules restrict any use of the information to criminally investigate or prosecute any alcohol or drug abuse patient.[facility] the event this information is protected by the Federal Confidentiality of Alcohol and Drug Abuse Patient Records regulations: The Federal rules restrict any use of the information to criminally investigate or prosecute any alcohol or drug abuse patient.[facility] Campus[facility] the event this information is protected by the Federal Confidentiality of Alcohol and Drug Abuse Patient Records regulations: The Federal rules restrict any use of the information to criminally investigate or prosecute any alcohol or drug abuse patient.[facility] the event this information is protected by the Federal Confidentiality of Alcohol and Drug Abuse Patient Records regulations: The Federal rules restrict any use of the information to criminally investigate or prosecute any alcohol or drug abuse patient.[facility] the event this information is protected by the Federal Confidentiality of Alcohol and Drug Abuse Patient Records regulations: The Federal rules restrict any use of the information to criminally investigate or prosecute any alcohol or drug abuse patient.[facility] the event this information is protected by the Federal Confidentiality of Alcohol and Drug Abuse Patient Records regulations: The Federal rules restrict any use of the information to criminally investigate or prosecute any alcohol or drug abuse patient.[facility] Reason for Visit (unrecogniz ed section and content) Reason Comments Follow Up follow up -labs Reason Comments Depression Reason Comments Sinus Problem sinus pressure, drai nage, headache, sore throat, ear pain, cough x 6 days Reason Comments Follow Up c/o vomiting and rian sea this morning Reason Comments Consult RUQ Specialty Diagnoses / Procedures Referred By Britany zapien Referred To Contact General Surgery Diagnoses RUQ pain Procedures CONSULT TO GENERAL SURGERY OFFICE/OUTPATIENT [facility] 60-74 MINUTES Alejandrina Graham MD [address] [place] [address] Referral ID Status Reason Start Date Expiration Date V isits Requested Visits Authorized [id number] Closed PCP Requested Referral 12/15/2022 12/15/2023 1 [...] Care Teams (unrecognized sec tion and content) 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 Capping Machine 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 Relationship Specialty Start Date End Date Alejandrina Graham MD [address] [place] [address] PCP - General Internal Medicine 10/24/18 Bottle Capping Machine Operator Relationship Specialty Start Date End Date Alejandrina Graham MD [address] [place] [address] PCP - General Internal Medicine 10/24/18 Bottle Capping Machine Operator Relationship Specialty Start Date End Date Alejandrina Graham MD [address] [place] [address] PCP - General Internal Medicine 10/24/18 Bottle Capping Machine Operator Relationship Specialty Start Date End Date Alejandrina Graham MD [address] [place] [address] PCP - General Internal Medicine 10/24/18 Bottle Capping Machine Operator Relationship Specialty Start Date End Date Alejandrina Graham MD [address] [place] [address] PCP - General Internal Medicine 10/24/18 Bottle Capping Machine Operator Relationship Specialty Start Date End Date Alejandrina Graham MD [address] [place] [address] PCP - General Internal Medicine 10/24/18 Bottle Capping Machine Operator Relationship Specialty Start Date End Date Alejandrina Graham MD [address] [place] [address] PCP - General Internal Medicine 10/24/18 Bottle Capping Machine Operator Relationship Specialty Start Date End Date Alejandrina Graham MD [address] [place] [address] PCP - General Internal Medicine 10/24/18 Bottle Capping Machine Operator Relationship Specialty Start Date End Date Alejandrina Graham MD [address] [place] [address] PCP - General Internal Medicine 10/24/18 Bottle Capping Machine Operator Relationship Specialty Start Date End Date Alejandrina Graham MD [address] [place] [address] PCP - General Internal Medicine 10/24/18 Bottle Capping Machine Operator Relationship Specialty Start Date End Date Alejandrina Graham MD [address] [place] [address] PCP - General Internal Medicine 10/24/18 Bottle Capping Machine Operator Relationship Specialty Start Date End Date Alejandrina Graham MD [address] [place] [address] PCP - General Internal Medicine 10/24/18 Bottle Capping Machine Operator Relationship Specialty Start Date End Date Alejandrina Graham MD [address] [place] [address] PCP - General Internal Medicine 10/24/18 Bottle Capping Machine Operator Relationship Specialty Start Date End Date Alejandrina Graham MD [address] [place] [address] PCP - General Internal Medicine 10/24/18 Bottle Capping Machine Operator Relationship Specialty Start Date End Date Alejandrina Graham MD [address] [place] [address] PCP - General Internal Medicine 10/24/18 Bottle Capping Machine Operator Relationship Specialty Start Date End Date Alejandrina Graham MD [address] [place] [address] PCP - General Internal Medicine 10/24/18 Bottle Capping Machine Operator Relationship Specialty Start Date End Date Alejandrina Graham MD [address] [place] [address] PCP - General Internal Medicine 10/24/18 Bottle Capping Machine Operator Relationship Specialty Start Date End Date Alejandrina Graham MD [address] [place] [address] PCP - General Internal Medicine 10/24/18 Bottle Capping Machine Operator Relationship Specialty Start Date End Date Alejandrina Graham MD [address] [place] [address] PCP - General Internal Medicine 10/24/18 Bottle Capping Machine Operator Relationship Specialty Start Date End Date Alejandrina Graham MD [address] [place] [address] PCP - General Internal Medicine 10/24/18 Bottle Capping Machine Operator Relationship Specialty Start Date End Date Alejandrina Graham MD [address] [place] [address] PCP - General Internal Medicine 10/24/18 Bottle Capping Machine Operator Relationship Specialty Start Date End Date Alejandrina Graham MD [address] [place] [address] PCP - General Internal Medicine 10/24/18 Team [...] 2024 End: October 04, 2024 Dr. Willie Adams MD Primary Care Provider Active Start: October 04, 2024 End: October 04, 2024 Team Status: Inactive Member Role Status Dates Dr. Alejandrina Grahma MD Referring Provider Active Start: November 08, [...] November 09, 2024 End: November 09, 2024 NIKOLE Tang Attending Provider Active Start: November 09, 2024 End: November 09, 2024 Dr. Willie Adams MD Primary Care Provider Active Start: November 09, 2024 End: November 09, 2024 Team Status: Active Member Role Status Dates Dr. Willie Adams MD Primary Care Provider Active Start: November 13, 2024 NIKOLE Tagn Attending Provider Active Start: November 13, 2024 Team Status: Inactive Member Role Status Dates Dr. Willie Adams MD Primary Care Provider Active Start: November 13, 2024 End: November 13, 2024 NIKLOE Tang Attending Provider Active Start: November 13, 2024 End: November 13, 2024 Team Status: Inactive Member Role Status Dates Dr. Willie Adams MD Primary Care Provider Active Start: November 23, 2024 End: November 23, 2024 Dr. Willie Adams MD Referring Provider Active Start: November 23, 2024 End: November 23, 2024 Sharon Henok 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 INSTRUCTOR, 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 INSTRUCTOR-C Attending Provider Active Start: November 23, 2024 End: November 23, 2024 Team Status: Active Member Role Status Dates Dr. Willie Adams MD Primary Care Provider Active Start: November 23, 2024 Sharon Whiting 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 INSTRUCTOR, 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 INSTRUCTOR-C Attending Provider Active Start: November 23, 2024 Sharon Whiting 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 INSTRUCTOR, 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 INSTRUCTOR-C Referring Provider Active Start: November 23, 2024 [...] 2024 End: November 23, 2024 Sharon Whiting 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 INSTRUCTOR, 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 INSTRUCTOR-C Attending Provider Active Start: November 23, 2024 End: November 23, 2024 Sharon Whiting 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 INSTRUCTOR, 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 INSTRUCTOR-C Referring Provider Active Start: November 23, 2024 [...] January 12, 2025 End: January 12, 2025 Team Status: Active Member Role Status Dates Dr. Willie Adams MD Primary Care Provider Active Start: January 22, 2025 End: January 22, 2025 Dr. Jamari Michael MD Attending Provider Active Start: January 22, 2025 End: January 22, 2025 Dr. Gayatri Weinstein MD Referring Provider Active Start: January 22, 2025 End: January 22, 2025 Team Status: Inactive Member Role Status Dates LETICIA Ham Attending Provider Active Start: January 23, 2025 End: January 23, 2025 LETICIA Ham Referring Provider Active Start: January 23, 2025 End: January 23, 2025 Dr. Willie Adams MD Primary Care Provider Active Start: January 23, 2025 End: January 23, 2025 Team Status: Active Member Role Status Dates Dr. Gayatri Weinstein MD Attending Provider Active Start: January 30, 2025 Dr. Gayatri Weinstein MD Referring Provider Active Start: January 30, 2025 Dr. Gayatri Weinstein MD Other Provider Active Start: January 30, 2025 Dr. Willie Adams MD Primary Care Provider Active Start: January 30, 2025 Team Status: Inactive Member Role Status Dates Dr. Gayatri Weinstein MD Attending Provider Active Start: January 30, 2025 End: January 30, 2025 Dr. Gayatri Weinstein MD Referring Provider Active Start: January 30, 2025 End: January 30, 2025 Dr. Willie Adams MD Primary Care Provider Active Start: January 30, 2025 End: January 30, 2025 Team Status: Active Member Role/Relationship Status Dates Dr. Willie Adams MD Primary Care Provider Active Team Status: Inactive Member Role/Relationship Status Dates Dr. Alejandrina Graham MD Referring Provider Active Start: November 08, 2024 End: November 08, 2024 Dr. Willie Adams MD Primary Care Provider Active Start: November 08, 2024 End: November 08, 2024 Dr. Willie Adams MD Attending Provider Active Start: November 08, 2024 End: November 08, 2024 Team Status: Inactive Member Role/Relationship Status Dates Dr. Willie Adams MD Primary Care Provider Active Start: November 09, 2024 End: November 09, 2024 Dr. Willie Adams MD Attending Provider Active Start: November 09, 2024 End: November 09, 2024 Dr. Willie Adams MD Referring Provider Active Start: November 09, 2024 End: November 09, 2024 Team Status: Inactive Member Role/Relationship Status Dates Dr. Alejandrina Graham MD Referring Provider Active Start: November 09, 2024 End: November 09, 2024 CANDICE TangC Attending Provider Active Start: November 09, 2024 End: November 09, 2024 Dr. Willie Adams MD Primary Care Provider Active Start: November 09, 2024 End: November 09, 2024 Team Status: Inactive Member Role/Relationship Status Dates Dr. Willie Adams MD Primary Care Provider Active Start: November 13, 2024 End: November 13, 2024 CANDICE TangC Attending Provider Active Start: November 13, 2024 End: November 13, 2024 Team Status: Inactive Member Role/Relationship Status Dates Dr. Willie Adams MD Primary Care Provider Active Start: November 23, 2024 End: November 23, 2024 Dr. Willie Adams MD Referring Provider Active Start: November 23, 2024 End: November 23, 2024 Sharon Whiting NP, 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 INSTRUCTOR-C Attending Provider Active Start: November 23, 2024 End: November 23, 2024 Team Status: Inactive Member Role/Relationship Status Dates Dr. Willie Adams MD Primary Care Provider Active Start: November 23, 2024 End: November 23, 2024 Sharon Whiting 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 INSTRUCTOR, 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 INSTRUCTOR-C Attending Provider Active Start: November 23, 2024 End: November 23, 2024 Sharon Whiting 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 INSTRUCTOR, 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 INSTRUCTOR-C Referring Provider Active Start: November 23, 2024 End: November 23, 2024 Team Status: Inactive Member Role/Relationship Status Dates Dr. Willie Adams MD Primary Care Provider Active Start: November 29, 2024 End: November 29, 2024 Dr. Willie Adams MD Referring Provider Active Start: November 29, 2024 End: November 29, 2024 Dr. Adria Cisse DO Attending Provider Active Start: November 29, 2024 End: November 29, 2024 Team Status: Active Member Role/Relationship Status Dates Dr. Willie Adams MD Primary Care Provider Active Start: November 29, 2024 Dr. Willie Adams MD Referring Provider Active Start: November 29, 2024 Dr. Adria Cisse DO Attending Provider Active Start: November 29, 2024 Dr. Adria Cisse DO Other Provider Active St art: November 29, 2024 Team Status: Inactive Member Role/Relationship Status Dates LETICIA Ham Attending Provider Active Start: December 13, 2024 End: December 13, 2024 Team Status: Inactive Member Role/Relationship Status Dates LETICIA Ham Attending Provider Active Start: December 28, 2024 End: December 28, 2024 Team Status: Inactive Member Role/Relationship Status Dates Dr. Gayatri Weinstein MD Attending Provider Active Start: January 12, 2025 End: January 12, 2025 Team Status: Active Member Role/Relationship Status Dates Dr. Willie Adams MD Primary Care Provider Active Start: January 22, 2025 End: January 22, 2025 Dr. Jamari Michael MD Attending Provider Active Start: January 22, 2025 End: January 22, 2025 Dr. Gayatri Weinstein MD Referring Provider Active Start: January 22, 2025 End: January 22, 2025 Team Status: Inactive Member Role/Relationship Status Dates LETICIA Ham Attending Provider Active Start: January 23, 2025 End: January 23, 2025 LETICIA Ham Referring Provider Active Start: January 23, 2025 End: January 23, 2025 Dr. Willie Adams MD Primary Care Provider Active Start: January 23, 2025 End: January 23, 2025 Team Status: Active Member Role/Relationship Status Dates Dr. Gayatri Weinstein MD Attending Provider Active Start: January 30, 2025 Dr. Gayatri Weinstein MD Referring Provider Active Start: January 30, 2025 Dr. Gayatri Weinstein MD Other Provider Active Start: January 30, 2025 Dr. Willie Adams MD Primary Care Provider Active Start: January 30, 2025 Team Status: Inactive Member Role/Relationship Status Dates Dr. Gayatri Weinstein MD Attending Provider Active Start: January 30, 2025 End: January 30, 2025 Dr. Gayatri Weinstein MD Referring Provider Active Start: January 30, 2025 End: January 30, 2025 Dr. Willie Adams MD Primary Care Provider Active Start: January 30, 2025 End: January 30, 2025 Team Status: Inactive Member Role/Relationship Status Dates Dr. Gayatri Weinstein MD Attending Provider Active Start: February 12, 2025 End: February 12, 2025 Dr. Willie Adams MD Primary Care Provider Active Start: February 12, 2025 End: February 12, 2025 Dr. Willie Adams MD Referring Provider Active Start: February 12, 2025 End: February 12, 2025 Goals (unrecognized section and content) [...] BE BASED ON THE PRIMARY CLINICAL RECORDS. [facility] [employer] [facility]. provides no warranty or guarantee of the accuracy or completeness of information in this document.
== END | disposition home or self-care (01) ==
LOC: OPBI 02-14 07:06
PROVIDERS: PCP Internal Medicine; Referring Provider Nurse Practitioner Family; Visit Provider Nurse Practitioner Family
DX: Z12.31 Encounter for screening mammogram for malignant neoplasm of breast (principal)
CPT/HCPCS: 77063; 77067

== ENCOUNTER 2025-04-02 15:45 | Outpatient (RCR) | payer OTHER, SELFPAY | END 2025-04-15 23:59 | LOC: NS 15:45 | PROVIDERS: PCP Internal Medicine; Referring Provider Internal Medicine; Visit Provider Internal Medicine | DX: Z71.3 Dietary counseling and surveillance (principal); E66.811 Obesity, class 1; E78.5 Hyperlipidemia, unspecified; Z68.31 Body mass index [BMI] 31.0-31.9, adult | CPT/HCPCS: 97802 ==

== ENCOUNTER → 2025-04-26 | Outpatient (CLI) | payer OTHER, SELFPAY ==
[2025-04-26 16:40] LABS: Hematocrit 38.2 % (37-47); Hemoglobin 12.5 g/dL (12.0-15.0); Immature Granulocytes Count 0.020 X10^3/uL (0.0-0.0); Mean Corp Hgb Conc 32.7 g/dL (32-36); Mean Corpuscular Volume 91.2 fL (81-99); Mean Platelet Vol. 10.1 fl (6.2-12.0); NRBC Flagged by Analyzer 0 % (0-5); Platelet Count 254 K/mm3 (150-450); RBC Distribution Width CV 11.9 % (11.6-14.6); RBC Distribution Width SD 40.0 fl (35.1-43.9); Red Blood Count 4.19 M/mm3 (4.2-5.4); White Blood Count 5.7 K/mm3 (4.4-11.0)
== END | disposition home or self-care (01) ==
LOC: LAB 14:28
PROVIDERS: PCP Internal Medicine; Referring Provider Student in an Organized Health Care Education/Training Program; Visit Provider Student in an Organized Health Care Education/Training Program
DX: K62.5 Hemorrhage of anus and rectum (principal)
CPT/HCPCS: 36415; 82274; 85025

== ENCOUNTER 2025-05-01 15:54 | Outpatient (RCR) | payer OTHER, SELFPAY | END 2025-05-15 23:59 | LOC: NS 15:54 | PROVIDERS: PCP Internal Medicine; Referring Provider Internal Medicine; Visit Provider Internal Medicine | DX: Z71.3 Dietary counseling and surveillance (principal); E78.5 Hyperlipidemia, unspecified; E66.811 Obesity, class 1 | CPT/HCPCS: 97803 ==

== ENCOUNTER → 2025-05-16 | Outpatient (CLI) | payer OTHER, SELFPAY ==
[2025-05-16 10:41] LABS: AST(SGOT) 19 U/L (<=31); Alanine Aminotransfer ALT/SGPT 14 U/L (<=34); Albumin, Serum 4.1 g/dL (3.5-5.0); Alkaline Phosphatase 108 U/L (35-104); Anion Gap 10 (5-15); BUN 18 mg/dL (4-19); BUN/Creat Ratio 18.0 RATIO (10-20); Calcium,Total 9.4 mg/dL (7.6-11.0); Carbon Dioxide 23.7 mmol/L (21.0-32.0); Chloride 107 mmol/L (98-108); Cholesterol 168 mg/dL (<=200); Globulin 2.6 g/dL (2.2-4.2); Glucose 99 mg/dL (70-99); Low Density Lipoprotein Calc. 77 mg/dL; Potassium 4.5 mmol/L (3.3-5.1); Triglycerides 181 mg/dL; Very Low Density Lipoprotein 36 mg/dL (5-40); cholesterol:hdl ratio screen 3.07
== END | disposition home or self-care (01) ==
LOC: LAB 08:17
PROVIDERS: PCP Internal Medicine; Referring Provider Internal Medicine; Visit Provider Internal Medicine
DX: E78.5 Hyperlipidemia, unspecified (principal)
CPT/HCPCS: 36415; 80053; 80061

== ENCOUNTER 2025-06-19 10:53 | Emergency (ER) | payer OTHER, SELFPAY ==
[2025-06-19] VITALS (8 sets, daily range): BP systolic 122–156; BP diastolic 62–102; PULSE 53–64; RESP 15–18; TEMP 36.6; O2SAT 98–100
[2025-06-19 12:29] LABS: Red Blood Cells-Urine 0 SEEN /hpf (0-5)
[2025-06-19 12:33] LABS: Color, Urine Yellow (Yellow); Glucose, Dipstick Normal (Normal); Ketone-Dipstick Negative (Negative); Leukocyte Esterase-Dipstick 500 /ul (Negative); Nitrite-Dipstick Negative (Negative); Occult Blood-Urine Negative /ul (Negative); Protein-Dipstick 30 mg/dl (Negative); Specific Gravity, Urine 1.010 (1.002-1.030); Urine Bilirubin Dipstick Negative (Negative)
[2025-06-19] MEDS: 0.9% Normal Saline (1000mL) 1,000 ML 1000 ML IV (12:35)
[2025-06-19 12:40] LABS: Mucous, Urine 1+ /hpf (<or=2+); Squamous Epithelial Cells - UA 10-25 SEEN /hpf (5-10)
[2025-06-19 12:44] LABS: Hematocrit 35.1 % (37-47); Hemoglobin 11.5 g/dL (12.0-15.0); Immature Granulocytes Count 0.020 X10^3/uL (0.0-0.0); Mean Corp Hgb Conc 32.8 g/dL (32-36); Mean Corpuscular Volume 88.4 fL (81-99); Mean Platelet Vol. 10.1 fl (6.2-12.0); NRBC Flagged by Analyzer 0 % (0-5); Platelet Count 251 K/mm3 (150-450); RBC Distribution Width CV 12.3 % (11.6-14.6); RBC Distribution Width SD 39.9 fl (35.1-43.9); Red Blood Count 3.97 M/mm3 (4.2-5.4); White Blood Count 5.7 K/mm3 (4.4-11.0)
[2025-06-19 12:46] LABS: D-Dimer Quantitative (DVT/PE) 0.40 FEU/ug/m (0.27-0.49)
[2025-06-19 13:18] LABS: Troponin T High Sensitivity < 6 ng/L (<=14)
[2025-06-19 13:22] LABS: AST(SGOT) 28 U/L (<=31); Alanine Aminotransfer ALT/SGPT 18 U/L (<=34); Albumin, Serum 4.1 g/dL (3.5-5.0); Alkaline Phosphatase 95 U/L (35-104); Anion Gap 10 (5-15); BUN 15 mg/dL (4-19); BUN/Creat Ratio 16.3 RATIO (10-20); Calcium,Total 9.1 mg/dL (7.6-11.0); Carbon Dioxide 26.4 mmol/L (21.0-32.0); Chloride 105 mmol/L (98-108); Globulin 2.6 g/dL (2.2-4.2); Glucose 83 mg/dL (70-99); Potassium 4.8 mmol/L (3.3-5.1)
[2025-06-19 14:08] LABS: Troponin T High Sens 2 HR < 6 ng/L (<=14)
--- NOTE | 2025-06-19 15:20 | EX.ED.DYSGE1 ---
HPI History of Present Illness Chief Complaint: Syncope Informant: patient Narrative Narrative: Patient is a 60-year-old female with history of POTS, aortic calcification, tendinitis, reports history of vertigo, anxiety, depression, hypertension hyperlipidemia presenting from work after near syncopal episode. Patient states she turned her head to pear picker the phone and then all of a sudden everything seemed scrambled. She states she felt she was going to pass out and describes as a lightheadedness sensation. It did not feel like vertigo. She states she is never felt like this before. Coworker lowered her to the ground. 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 She notes that over the past few days she has been feeling tired. She states she does get some intermittent weird pain that she describes as streaking pain across her chest that only last for couple seconds at a time. She states since having COVID a couple years ago she is always a little short of breath but today when walking to work she felt more winded than normal. She states that she has allergies and has been coughing for a while but denies any change in this. No fever or chills reported. No numbness or tingling appreciated. Currently not have any vision changes. No other complaints or concerns at this time. [facility] Medical History Tinnitus Musculoskeletal pain of extremity Aortic calcification Dermatitis Chronic abdominal pain Obesity (BMI 30.0-34.9) Bite from insect Leg cramps Wears glasses Depression Anxiety Fatty liver Injury of head and neck Loss of consciousness Dietary restriction History of IBS Non-smoker Blood glucose elevated Hyperlipidemia Anxiety and depression Chronic constipation Greater trochanter fracture Palpitations with regular cardiac rhythm Vaginal delivery Horseshoe kidney Vision problems Skin cancer GERD (gastroesophageal reflux disease) Kidney stones IBS (irritable bowel syndrome) High cholesterol Hypertension Hearing problem Migraines Frequent headaches Gastrointestinal problem Emotional problems Chronic bronchitis Carpal tunnel syndrome Asthma Anemia Seasonal allergies Home Medications ?Medication ?Instructions ?Recorded ?Last Taken ?Type mecobalamin (vitamin B12) 500 mcg 500 mcg PO DAILY supplement 09/08/24 06/19/25 History chewable tablet pbyaqcma-dwz-zirnz ac 400 1 tab PO DAILY supplement 11/08/24 06/19/25 History mcg-calcium carb 500 mg-vit K1 20 mcg tablet (Women's 50 Plus Multivitamin) sumatriptan succinate 25 mg tablet See Rx Instructions PO .COMPLEX 11/29/24 Unknown History (Imitrex) PRN migraine headache venlafaxine 75 mg capsule,extended 75 mg PO QHS depression 11/29/24 06/18/25 History release 24 hr magnesium 250 mg tablet 500 mg PO QHS supplement 01/17/25 06/18/25 History pravastatin 10 mg tablet 10 mg PO QHS cholesterol #30 tabs 03/02/25 06/18/25 Rx vonoprazan 10 mg tablet (Voquezna) 10 mg PO QDAY gerd #30 tabs 03/08/25 06/19/25 Rx famotidine 40 mg tablet 40 mg PO BID gerd #60 tabs 03/14/25 06/19/25 Rx collagen powder PO DAILY 05/16/25 06/18/25 History creatine powder PO DAILY 05/16/25 06/18/25 History triamcinolone acetonide 0.1 % 1 applic topical BID PRN itching 05/16/25 Unknown History topical cream propranolol 60 mg capsule,24 60 mg PO QHS heart #90 caps 06/01/25 06/18/25 Rx hr,extended release meloxicam 15 mg tablet 15 mg PO PRN inflammation 06/19/25 06/16/25 History Allergy/AdvReac Type Severity Reaction Status Date / Time perfume Allergy throat Verified 06/19/25 10:59 swelling Family History Mother Anxiety Depression Heart disease Mental disorder Severe allergy Pacemaker Father High cholesterol Cancer lung/lymphoma Aunt Arthritis Cancer lymphoma Stomach cancer maternal aunt Aunt Cancer Sister Depression Mental disorder Hypertension Brother Cancer lymphoma Depression Mental disorder Grandmother Heart disease Severe allergy Cancer in stomach Grandfather Suicide Surgical History History of hysteroscopy H/O dilation and curettage H/O lithotripsy H/O prior ablation treatment History of appendectomy History of carpal tunnel surgery Social History adopted: No household members: spouse number of children: 3 current occupational status: employed current occupation: [employer] current occupational exposures/hazards: No pets and animals: No leisure activities: clubs, art, fishing, reading and volunteer work history of recent travel: No sexually active: Yes Smoking Status: Former smoker Tobacco: How many years used: 2 alcohol intake: current alcohol intake frequency: holidays/special occasions only Alcohol type: wine substance use type: does not use diet: lactose free and low salt well-balanced diet: rarely or never caffeine: Yes Type: carbonated beverages, coffee and tea eating out: other during the past year weight has: increased > 10 lbs what type of physical activity do you participate in: walking seatbelt use: always do you feel safe at home: Yes ROS ROS ED Constitutional Constitutional ED: Denies chills, fever(s) or sweats Eyes Eyes: Reports blurry vision bilateral (Well having this episode. Currently denies any vision changes); Denies diplopia Cardiovascular Cardiovascular: Denies chest pain or palpitations Respiratory/Chest Respiratory/Chest: Reports cough and dyspnea on exertion; Denies dyspnea Gastrointestinal Gastrointestinal: Denies abdominal pain or vomiting Musculoskeletal Musculoskeletal: Denies arthralgias or myalgias Integumentary Denies rash Neurologic Neurologic: Reports weakness; Denies headache(s) or paresthesias Psychiatric Psychiatric: Reports anxiety Hematologic/Lymphatic Hematologic/Lymphatic: Denies easy bleeding or easy bruising EXAM Physical Exam Const Vital Signs: 06/19/25 10:55 06/19/25 10:59 06/19/25 11:49 Temperature 98 F Temperature Source Oral Pulse Rate 54 L Pulse Rate [Lying] 55 L Pulse Rate [Sitting (for 1 minute prior to obtaining)] 59 L Pulse Rate [Standing (for 1 minute prior to obtaining)] 60 Respiratory Rate 16 Respiratory Effort Normal Respiratory Pattern Normal Blood Pressure 140/74 H Blood Pressure [Lying] 134/70 H Blood Pressure [Sitting (for 1 minute prior to obtaining)] 145/78 H Blood Pressure [Standing (for 1 minute prior to obtaining)] 156/80 H Blood Pressure Mean 96 Blood Pressure Mean [Lying] 91 Blood Pressure Mean [Sitting (for 1 minute prior to obtaining)] 100 Blood Pressure Mean [Standing (for 1 minute prior to obtaining)] 105 Pulse Ox 100 Oxygen Delivery Method Room Air 06/19/25 11:55 06/19/25 12:00 06/19/25 13:00 Temperature Temperature Source Pulse Rate 53 L 55 L 62 Pulse Rate [Lying] Pulse Rate [Sitting (for 1 minute prior to obtaining)] Pulse Rate [Standing (for 1 minute prior to obtaining)] Respiratory Rate 15 Respiratory Effort Respiratory Pattern Blood Pressure 122/68 H 122/68 H 141/62 H Blood Pressure [Lying] Blood Pressure [Sitting (for 1 minute prior to obtaining)] Blood Pressure [Standing (for 1 minute prior to obtaining)] Blood Pressure Mean 86 86 88 Blood Pressure Mean [Lying] Blood Pressure Mean [Sitting (for 1 minute prior to obtaining)] Blood Pressure Mean [Standing (for 1 minute prior to obtaining)] Pulse Ox 100 100 100 Oxygen Delivery Method Room Air Room Air 06/19/25 14:04 06/19/25 14:27 06/19/25 15:00 Temperature 97.8 F Temperature Source Pulse Rate 59 L 64 Pulse Rate [Lying] 56 L Pulse Rate [Sitting (for 1 minute prior to obtaining)] 57 L Pulse Rate [Standing (for 1 minute prior to obtaining)] 57 L Respiratory Rate 18 18 Respiratory Effort Respiratory Pattern Blood Pressure 124/65 H 138/74 H Blood Pressure [Lying] 124/68 H Blood Pressure [Sitting (for 1 minute prior to obtaining)] 153/82 H Blood Pressure [Standing (for 1 minute prior to obtaining)] 142/102 H Blood Pressure Mean 84 95 Blood Pressure Mean [Lying] 86 Blood Pressure Mean [Sitting (for 1 minute prior to obtaining)] 105 Blood Pressure Mean [Standing (for 1 minute prior to obtaining)] 115 Pulse Ox 98 99 Oxygen Delivery Method Room Air Positive well nourished and well developed General Appearance ED: well developed and NAD HEENT Reports TM's clear and moist mucous membranes Negative for trauma Tympanic Membrane ED: Yes TM's clear Eyes PERRL and EOMs intact bilaterally Eyes Narrative: No nystagmus on exam. Negative Jon-Hallpike maneuver, currently asymptomatic during it. Neck supple and no JVD Chest Wall inspection of chest normal and palpation of chest normal Resp normal respiratory effort and clear to auscultation bilaterally Cardio regular rate, regular rhythm and no murmurs GI normal to inspection, nondistended, normoactive bowel sounds and non-tender Extremity normal to inspection General Extremety ED: Negative for edema General Extremity: Negative for edema Neuro oriented x3, CN's II-XII intact bilaterally and no sensory deficits noted Sensorium / Orientation: alert Motor Exam: strength 5/5 throughout; Negative for general weakness Psych mental status grossly normal Skin no rashes or lesions noted MDM MDM MDM Narrative Medical decision making narrative: Patient is a 60-year-old female presenting after second near syncopal episode at work. She became very dizzy and a coworker lowered her to the ground. Does have a history of syncope and POTS however states she also had blurry vision before this. She states she moves her head and everything seemed doubled. That is since resolved. Denies any other neurologic symptoms at this time nystagmus or vertigo on exam to have a lower suspicion for posterior circulation stroke or any type of neurologic event. Cardiac workup for near syncope is obtained. Workup is largely normal/unremarkable. Urinalysis does show potential for UTI versus contamination and will send for culture she is not having any symptoms from urinary standpoint will defer treatment. A delta high-sensitivity troponin is less than 6 x 2. She is a very mild anemia the hemoglobin 11.5 but I do not think this would explain her symptoms. In addition she has normal BUN to the lower sufficient for any insidious upper GI bleed. She does not report any black or blood in her stool. Discussed that potentially she could have had an episode of vertigo and she could trial [id number] meclizine however I do have a lower suspicion for vertigo given she is not really describing a room spinning sensation and had a negative [place]-Hallpike maneuver in the emergency room. I did discuss follow-up either with cardiology or primary care. Patient would prefer follow-up with primary care at this time. Discussed potential heart monitor or event monitor. Given return precautions. Is discharged home in stable condition. Orthostatics are negative in the emergency room. Lab Data Attestation: I reviewed the patient's lab results. Labs: Laboratory Results - last 24 hr 06/19/25 06/19/25 06/19/25 11:27 11:27 12:22 WBC Cancelled Corrected WBC Cancelled RBC Cancelled Hgb Cancelled Hct Cancelled MCV Cancelled MCH Cancelled MCHC Cancelled RDW Std Deviation Cancelled RDW Coeff of Marc Cancelled Plt Count Cancelled MPV Cancelled Immature Gran % (Auto) Cancelled Neut % (Auto) Cancelled Lymph % (Auto) Cancelled Bremer % (Auto) Cancelled Eos % (Auto) Cancelled Baso % (Auto) Cancelled Absolute Neuts (auto) Cancelled Absolute Lymphs (auto) Cancelled Total Counted Cancelled Neutrophils % (Manual) Cancelled Band Neutrophils % Cancelled Lymphocytes % (Manual) Cancelled Monocytes % (Manual) Cancelled Eosinophils % (Manual) Cancelled Basophils % (Manual) Cancelled Metamyelocytes % Cancelled Myelocytes % Cancelled Promyelocytes % Cancelled Blast Cells % Cancelled Plasma Cell % (Manual) Cancelled Other Cells % Cancelled Nucleated RBC % Cancelled Nucleated RBCs/100 WBC Cancelled Differential Comment Cancelled Diff Path Review Cancelled Hypersegmented Neuts Cancelled Atypical Lymphocytes Cancelled Reactive Lymphocytes Cancelled Smudge Cells Cancelled Toxic Granulation Cancelled Toxic Vacuolation Cancelled Dohle Bodies Cancelled Mohit Rods Cancelled Platelet Estimate Cancelled Plt Morphology Comment Cancelled RBC Morphology Cancelled Cancelled Polychromasia Cancelled Hypochromasia Cancelled Basophilic Stippling Cancelled Anisocytosis Cancelled Microcytosis Cancelled Macrocytosis Cancelled Spherocytes Cancelled Sickle Cells Cancelled Target Cells Cancelled Tear Drop Cells Cancelled Ovalocytes Cancelled Stomatocytes Cancelled [place] Bodies Cancelled [place] Cells Cancelled Bite Cells Cancelled Crenated Cell Cancelled Acanthocytes (Spur) Cancelled Rouleaux Cancelled Schistocytes Cancelled D-Dimer Quant (PE/DVT) 0.40 Sodium 141 Potassium 4.8 Chloride 105 Carbon Dioxide 26.4 Anion Gap 10 BUN 15 Creatinine 0.94 Est GFR (MDRD) Non-Af 71 BUN/Creatinine Ratio 16.3 Glucose 83 Calcium 9.1 Total Bilirubin 0.24 AST 28 ALT 18 Alkaline Phosphatase 95 Troponin T High Sens < 6 Troponin T Hi Sens 2 Hr Total Protein 6.7 Albumin 4.1 Globulin 2.6 Albumin/Globulin Ratio 1.6 Urine Color Yellow Urine Clarity Sl. Cloudy Urine pH 7.0 Ur Specific [place] 1.010 Urine Protein 30 H Urine Glucose (UA) Normal Urine Ketones Negative Urine Occult Blood Negative Urine Nitrite Negative Urine Bilirubin Negative Urine Urobilinogen Normal Ur Leukocyte Esterase 500 H Urine RBC 0 SEEN Urine WBC 10-25 SEEN Ur Squamous Epith Cells 10-25 SEEN Urine Bacteria 2+ Urine Mucus 1+ 06/19/25 06/19/25 12:37 13:39 WBC 5.7 Corrected WBC RBC 3.97 L Hgb 11.5 L Hct 35.1 L MCV 88.4 MCH 29.0 MCHC 32.8 RDW Std Deviation 39.9 RDW Coeff of Marc 12.3 Plt Count 251 MPV 10.1 Immature Gran % (Auto) 0.400 Neut % (Auto) 56.4 Lymph % (Auto) 33.0 Bremer % (Auto) 7.4 Eos % (Auto) 2.1 Baso % (Auto) 0.7 Absolute Neuts (auto) 3.2 Absolute Lymphs (auto) 1.87 Total Counted Neutrophils % (Manual) Band Neutrophils % Lymphocytes % (Manual) Monocytes % (Manual) Eosinophils % (Manual) Basophils % (Manual) Metamyelocytes % Myelocytes % Promyelocytes % Blast Cells % Plasma Cell % (Manual) Other Cells % Nucleated RBC % 0 Nucleated RBCs/100 WBC Differential Comment Diff Path Review Hypersegmented Neuts Atypical Lymphocytes Reactive Lymphocytes Smudge Cells Toxic Granulation Toxic Vacuolation Dohle Bodies Mohit Rods Platelet Estimate Plt Morphology Comment RBC Morphology Polychromasia Hypochromasia Basophilic Stippling Anisocytosis Microcytosis Macrocytosis Spherocytes Sickle Cells Target Cells Tear Drop Cells Ovalocytes Stomatocytes [place] Bodies [place] Cells Bite Cells Crenated Cell Acanthocytes (Spur) Rouleaux Schistocytes D-Dimer Quant (PE/DVT) Sodium Potassium Chloride Carbon Dioxide Anion Gap BUN Creatinine Est GFR (MDRD) Non-Af BUN/Creatinine Ratio Glucose Calcium Total Bilirubin AST ALT Alkaline Phosphatase Troponin T High Sens Troponin T Hi Sens 2 Hr < 6 Total Protein Albumin Globulin Albumin/Globulin Ratio Urine Color Urine Clarity Urine pH Ur Specific [place] Urine Protein Urine Glucose (UA) Urine Ketones Urine Occult Blood Urine Nitrite Urine Bilirubin Urine Urobilinogen Ur Leukocyte Esterase Urine RBC Urine WBC Ur Squamous Epith Cells Urine Bacteria Urine Mucus Rhythm Strip Rhythm Strip: Sinus Rhythm Rate: 53 Ectopy: None EKG Initial EKG: Attestation: I personally reviewed and interpreted this EKG as follows: Interpretation: Sinus Bradycardia Comments: Sinus bradycardia rate 53 bpm Normal axis Normal intervals Normal ST segments Compared to prior EKG, no significant change Discharge Plan Triage Chief Complaint: Syncope ED Provider: Carolina Navarro Dx/Rx/DC Orders Clinical Impression: Near syncope, Dizziness Instructions: ED Dizziness, Uncertain Cause, ED Near-Fainting, Uncertain Cause Prescriptions: No Action Women's 50 Plus Multivitamin 400 mcg-500 mg calcium-20 mcg tablet 1 tab PO DAILY triamcinolone acetonide 0.1 % cream 1 applic topical BID PRN (Reason: itching) collagen powder PO DAILY creatine powder PO DAILY meloxicam 15 mg tablet 15 mg PO PRN Rx Instructions: Take daily x 7 days then just as needed venlafaxine 75 mg capsule,extended release 24hr 75 mg PO QHS sumatriptan succinate [Imitrex] 25 mg tablet See Rx Instructions PO .COMPLEX PRN (Reason: migraine headache) Rx Instructions: take 1 tab at onset of headache; if no relief may repeat 1 tab after at least 2 hrs; max = 4 tabs/24 hr orally PRN; magnesium 250 mg tablet 500 mg PO QHS mecobalamin (vitamin B12) 500 mcg tablet,chewable 500 mcg PO DAILY pravastatin 10 mg tablet 10 mg PO QHS Qty: 30 3RF Voquezna 10 mg tablet 10 mg PO QDAY Qty: 30 2RF famotidine 40 mg tablet 40 mg PO BID Qty: 60 1RF propranolol 60 mg capsule,extended release 24 hr 60 mg PO QHS Qty: 90 1RF Primary Care Provider: Willie Adams Referrals: Willie Adams MD [Primary Care Provider, Internal Medicine] Activity Restrictions/Additional Instructions: Your workup today was largely normal and reassuring. You do have a questionable UTI versus contamination on your urinalysis test. Will send off for culture and contact you if you require antibiotics. Your hemoglobin is very mildly low at 11.5. Please follow-up with your family doctor for recheck of this to ensure it is stable. It is not low enough to cause symptoms today however. Your workup was otherwise normal and reassuring. Your EKG did not show any acute changes concerning for acute heart event. Please continue to follow-up outpatient as we discussed for further evaluation. If you have worsening symptoms, develop numbness, further vision changes or difficulty with coordination please do not hesitate to return to the emergency room. Print Language: Honduran Disposition Disposition: Home, Self Care Discharge Date/Time: 06/19/25 15:35
== END 2025-06-19 15:35 | disposition home or self-care (01) ==
PROVIDERS: Emergency Provider Emergency Medicine; PCP Internal Medicine; Visit Provider Emergency Medicine
DX: R55 Syncope and collapse (principal); R42 Dizziness and giddiness; E78.00 Pure hypercholesterolemia, unspecified; I10 Essential (primary) hypertension; Z87.891 Personal history of nicotine dependence; Z79.899 Other long term (current) drug therapy; Z86.16 Personal history of COVID-19
CPT/HCPCS: 80053; 81001; 84484; 85025; 85379; 87086; 87088; 93005; 99285; A4216

== ENCOUNTER 2025-06-20 16:00 | Outpatient (RCR) | payer OTHER, SELFPAY | END 2025-07-15 23:59 | LOC: NS 16:00 | PROVIDERS: PCP Internal Medicine; Referring Provider Internal Medicine; Visit Provider Internal Medicine | DX: Z71.3 Dietary counseling and surveillance (principal); E66.811 Obesity, class 1; E78.5 Hyperlipidemia, unspecified; Z68.32 Body mass index [BMI] 32.0-32.9, adult | CPT/HCPCS: 97803 ==

== ENCOUNTER → 2025-06-29 | Outpatient (CLI) | payer OTHER, SELFPAY ==
--- NOTE | 2025-06-29 16:48 | RAD_ITS ---
PROCEDURE: CHEST PA AND LATERAL 06/29/2025 REASON FOR EXAM: SOB TECHNIQUE: Procedure Code: RADCXR Modality: DX Procedure: CHEST PA AND LATERAL COMPARISON: None available. FINDINGS: Hardware: None. Heart: The heart size is normal. Mediastinum: The mediastinal contour is unremarkable. Lungs: The lungs are clear. No pneumothorax or pleural effusion. Bones: The bones are unremarkable. RAD/Chest PA and Lateral IMPRESSION: NO ACUTE FINDINGS. Reading [facility]
--- OUTSIDE RECORDS SUMMARY | 2025-06-29 18:02 | XMS RPT_ITS | CCD ---
Author Organization [facility] Team Providers Care Machine Assistant Name Role Phone MANDO COON DO Admitting Unavailable MANDO COON DO Attending Unavailable MANDO COON DO Primary Care Unavailable DOMINGA, DR LUH Osei Admitting Unavaila babar ORR, DR LUH Osei Attending Unavaila babar ORR, DR LUH Osei Primary Care Unavaila babar Graham MD, Alejandrina Primary Care Provider Seth BARRIENTOS, Alejandrina Primary Care Provider Seth BARRIENTOS, Alejandrina Primary Care Provider Seth BARRIENTOS, Alejandrina Primary Care Provider Seth BARRIENTOS, Dr. Wilcox Referring Provider Alma Carig Attending Provider Alma Craig Referring Provider Dr. Willie Adams MD Primary Care Provider Dr. Willie Adams MD Attending Provider Dr. Willie Adams MD Referring Provider Naveed SANCHEZ-CFadia Attending Provider Henok ROTARY 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-CSharon Attending Provider Henok ROTARY 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-CSharon Referring Provider Dr. Adria Cisse DO Attending Provider Dr. Adria Cisse DO Other Provider Corinna BARRIENTOS, Dr. Mendieta Attending Provider [phone] Alma Craig Attending Provider Seth BARRIENTOS Dr. Alejandrina Referring Provider Alec BARRIENTOS, Dr. Kauffman Attending Provider Corinna BARRIENTOS, Dr. Mendieta Referring Provider [phone] Corinna BARRIENTOS, Dr. Mendieta Other Provider [phone] Angie BARRIENTOS, Dr. Tapia Primary Care Provider Alma Craig Attending Provider Alma Craig Referring Provider Naveed ROTARY 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-Fadia Allen Referring Provider Older PRINCIPAL SECURITY ARCHITECT.LEVEL VIAL GRINDER, Scarlett Unavailable GANTA, ALEJANDRINA Attending Unavailable GANTA, ALEJANDRINA Primary Care Unavailable GANTA, ALEJANDRINA Referring Unavailable GANTA, ALEJANDRINA Primary Care Unavailable JEANMARIE, LAUREL Attending Unavailable GANTA, ALEJANDRINA Primary Care Unavailable JEANMARIE, LAUREL Referring Unavailable GANTA, ALEJANDRINA Primary Care Unavailable JEANMARIE, LAUREL Referring Unavailable GANTA, ALEJANDRINA Primary Care Unavailable Alma Craig Attending Provider Angie BARRIENTOS, Dr. Tapia Primary Care Provider Angie BARRIENTOS, Dr. Tapia Referring Provider [phone] Fadia Castañeda Attending Provider Angie BARRIENTOS, Dr. Tapia Attending Provider [phone] Angie BARRIENTOS, Dr. Tapia Primary Care Physician Dr. Jamari Michael MD Attending Physician [phone] Alma Craig Attending Physician [phone] Corinna BARRIENTOS, Dr. Mendieta Attending Physician Corinna BARRIENTOS, Dr. Mendieta Nurse Practitioner [phone] Fadia Castañeda Attending Physician [phone] Angie BARRIENTOS, Dr. Tapia Attending Physician [phone] Willie Adams Referring Unavailable Willie Adams Attending Unavailable Oleghe, Efewongbe Primary Care Unavailable Carolina Navarro Attending Unavailable Oleghe, Efewongbe Primary Care Unavailable Oleghe, Efewongbe Primary Care Unavailable Gayatri Weinstein Attending Unavailable Gayatri Weinstein Referring Unavailable Oleghe, Efewongbe Referring Unavailable Oleghe, Efewongbe Attending Unavailable Oleghe, Efewongbe Primary Care Unavailable Oleghe, Efewongbe Primary Care Unavailable Oleghe, Efewongbe Referring Unavailable Sharon Whiting NP Attending Unavailable Oleghe, Efewongbe Primary Care Unavailable Oleghe, Efewongbe Referring Unavailable Gayatri Weinstein Attending Unavailable Ganta, Alejandrina Referring Unavailable Oleghe, Efewongbe Attending Unavailable Oleghe, Efewongbe Primary Care Unavailable Oleghe, Efewongbe Referring Unavailable Oleghe, Efewongbe Attending Unavailable Oleghe, Efewongbe Primary Care Unavailable Oleghe, Efewongbe Referring Unavailable Adria Cisse Attending Unavailable Oleghe, Efewongbe Primary Care Unavailable Oleghe, Efewongbe Attending Unavailable Oleghe, Efewongbe Primary Care Unavailable Oleghe, Efewongbe Referring Unavailable Oleghe, Efewongbe Attending Unavailable Oleghe, Efewongbe Primary Care Unavailable Oleghe, Efewongbe Referring Unavailable Assessment, Health Risk Referring Unavaila ble Assessment, Health Risk Attending Unavaila ble Ganta, Alejandrina Primary Care Unavailable Oleghe, Efewongbe Referring Unavailable Oleghe, Efewongbe Attending Unavailable Oleghe, Efewongbe Primary Care Unavailable Oleghe, Efewongbe Attending Unavailable Oleghe, Efewongbe Primary Care Unavailable Oleghe, Efewongbe Referring Unavailable Alma Melton Attending Unavailable Ganta, Alejandrina Referring Unavailable Fadia Lucio Attending Unavailable Ganta, Alejandrina Referring Unavailable Oleghe, Efewongbe Primary Care Unavailable Alma Melton Referring Unavailable Alma Melton Attending Unavailable Oleghe, Efewongbe Primary Care Unavailable Fadia Lucio Referring Unavailable Fadia Lucio Attending Unavailable Oleghe, Efewongbe Primary Care Unavailable Alma Melton Referring Unavailable Alma Melton Attending Unavailable Oleghe, Efewongbe Primary Care Unavailable Fadia Lucio Attending Unavailable Oleghe, Efewongbe Primary Care Unavailable Gayatri Weinstein Attending Unavailable Alma Melton Attending Unavailable FriendAdria Attending Unavailable FriendAdria Consulting Unavailable Oleghe, Efewongbe Primary Care Unavailable Oleghe, Efewongbe Referring Unavailable Oleghe, Efewongbe Primary Care Unavailable Gayatri Weinstein Consulting Unavailable Gayatri Weinstein Referring Unavailable Gayatri Weinstein Attending Unavailable Oleghe, Efewongbe Primary Care Unavailable Jamari Michael Attending Unavailable Gayatri Weinstein Referring Unavailable Alma Melton Attending Unavailable Alma Melton Attending Unavailable Alma Melton Referring Unavailable Oleghe, Efewongbe Primary Care Unavailable Oleghe, Efewongbe Primary Care Unavailable Sharon Whiting NP Referring Unavailable Henok ROTARY 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Sharon Attending Unavailable Allergies Allergy Classification Reported Allergen(s) Allergy Type Date of Onset Reaction(s) Facility (20 sources) Seasonal allergy; Translations: [SEASONAL ALLERGIES] Allergy to substance 8 Other: See Comments [facility] (15 sources) Perfumes; Translations: [PERFUMES] Allergy to substance 3 Shortness of Breath [facility] Work Phone: (1 source) perfume Drug allergy (disorder) 5 [facility] Repository Medications Current Medications Medication Drug Class(es) Dates Sig (Normalized) Sig (Original) [id number] 200 actuat albuterol 0.09 mg/actuat metered dose inhaler (18 sources) beta2-Adrenergic Agonist Start: 12-15-2022 take 2 [...] twice daily for 7 days. bismuth subsalicylate (6 sources) Bismuth take 1 tablet by mouth twice daily bismuth subsalicylate (DIGESTIVE RELIEF ORAL) Take 1 tablet by mouth two times a day. Active G-W6-hvsl-dfj-sadjk-sv ng-herb (IMMUNE SUPPORT, VIT C,D,ZINC,) 180 mg-10 mcg- 5.5 mg-150 mg cap (6 sources) take 2 capsules by mouth once daily P-A8-pcom-sneha-biofl- ging-herb (IMMUNE SUPPORT, VIT C,D,ZINC,) 180 mg-10 [...] - nasal drainage, watery or puffy eyes Collagen (2 sources) Start: Creatine (2 sources) Start: esomeprazole 20 mg delayed release oral capsule (1 source) Proton Pump Inhibitor Start: End: esomeprazole (NEXIUM) 20 mg capsule Take 1 cap daily before breakfast and at bedtime. 90 capsule 3 08/27/2021 06/09/2022 Discontinued Comment on above: Take 1 cap daily bef ore breakfast and at bedtime. famotidine 40 mg oral tablet (20 sources) Histamine-2 Receptor Antagonist Start: End: take 1 tablet by mouth twice daily Start: 12-28-2024 End: 01-23-2025 take 1 tablet by mouth once daily as needed Famotidine 40 mg tablet Discontinued 40 mg PO daily as needed for eructation 30 January 18, 2025 5:24pm January 23, 2025 6:53am folic acid/multivit-min/lutein (CENTRUM SILVER ORAL) (1 source) End: 06-09-2022 folic acid/multivit-min/lutein (CENTRUM SILVER ORAL) Take by mouth. 0 06/09/2022 Discontinued Comment on above: Take by mouth. Lactobacillus rhamnosus GG (CULTURELLE ORAL) (6 sources) take 1 capsule by mouth once daily Lactobacillus rhamnosus GG (CULTURELLE ORAL) Take 1 capsule by mouth once daily. Active Magnesium (9 sources) Start: 01-17-2025 take 1 tablet by mouth at bedtime Start: 01-17-2025 take 1 tablet by mouth at bedt adalberto Magnesium 250 mg tablet Active 250 mg PO AT BEDTIME January 17, 2025 12:00am mecobalamin (12 sources) Start: 09-08-2024 take 1 tablet by mouth once daily Mecobalamin (Vitamin B12) 500 mcg tablet,chewable Active 500 ug PO .QD September 08, 2024 1:00am Start: 09-08-2024 Mecobalamin (V itamin B12) 500 mcg tablet,chewable Active ug PO September 08, 2024 1:00am meloxicam 15 mg oral tablet (2 sources) Nonsteroidal Anti-inflammatory Drug Start: 05-16-2025 Multivitamins-Minera ls-Lutein (MULTIVITAMIN 50 PLUS) tab (14 sources) Multivitamins-Mi n erals-Lutein (MULTIVITAMIN 50 PLUS) tab Take 1 tablet by mouth once daily. Active Multivitamins-Mi nerals-Lutein (MULTIVITAMIN 50 PLUS) tab Take 1 tablet by mouth once daily. 0 Active Comment on above: Take 1 tablet by nimo once daily. Hd-Olk-Cikbc-Calcium Carb-K1 (Women's 50 Plus Multivitamin) 400 mcg-500 mg calcium-20 mcg tablet (15 sources) Start: 11-08-2024 Start: 11-08-2024 Ts-Kav-Waoog-C alcium Carb-K1 (Women's 50 Plus Multivitamin) 400 mcg-500 mg calcium-20 mcg tablet Active 1 {tbl} PO .QD November 08, 2024 12:00am Start: 11-08-2024 Od-Asr-Axsnb-C alcium Carb-K1 (Women's 50 Plus Multivitamin) 400 mcg-500 mg calcium-20 mcg tablet Active {tbl} PO November 08, 2024 12:00am pravastatin sodium 10 mg oral tablet (4 sources) HMG-CoA Reductase Inhibitor Start: 03-02-2025 take 1 tablet by mouth at bedtime 24 hr propranolol hydrochloride 60 mg extended release oral capsule (20 sources) beta-Adrenergic Humberto Start: 09-08-2024 End: 01-31-2025 take 1 capsule by mouth every twenty-four hours at bedtime Start: 09-22-2023 End: 01-17-2024 take 1 capsule by mouth once daily Propranolol 60 mg capsule,extended release 24 hr Active 60 mg PO daily September 08, 2024 1:00am Comment on above: Take 1 capsule by mo [facility] once daily. FQPJD-GFMOPXLPI-QOXWU SIUM MISC (6 sources) SENNA-BISACODYL -MAGNESIUM MISC 1 tablet as needed. Active sennosides, prison 8.6 mg oral capsule (20 sources) Start: 09-08-2024 End: 11-08-2024 take 1 capsule by mouth once daily as needed for constipation SUMAtriptan 25 mg oral tablet (20 sources) Serotonin-1b and Serotonin-1d Receptor Agonist Start: 11-29-2024 take 1 tablet by mouth every hour as needed for headache Start: 11-08-2024 End: 11-29-2024 take 1 tablet by mouth every two hours Sumatriptan Succinate (Imitrex) 25 mg tablet Discontinued 0 PO .COMPLEX 14 0 November 08, 2024 12:00am November 29, 2024 5:48am take 1 tab at onset of headache; if no relief may repeat 1 tab after at least 2 hrs; max = 4 tabs/24 hr PO triamcinolone acetonide 1 mg /ml topical cream (4 sources) Corticosteroid Start: 05-16-2025 Start: 06-26-2024 End: 06-26-2024 triamcinolone acetonide 40 m g injection (KeNALog 40) 24 hr venlafaxine 75 mg extended release oral capsule (20 sources) Serotonin and Norepinephrine Reuptake Inhibitor Start: 11-29-2024 take 1 capsule by mouth every twenty-four hours at bedtime Start: 11-08-2024 End: 11-29-2024 take 1 capsule by mouth once daily Venlafaxine 75 mg capsule,extended release 24hr Discontinued 75 mg PO daily 90 1 November 08, 2024 6:17pm November 29, 2024 5:48am Start: 09-22-2023 End: 11-08-2024 take 1 capsule by mouth once daily Venlafaxine 37.5 mg capsule,extended release 24hr Discontinued 37.5 mg PO daily September 08, 2024 1:00am November 08, 2024 6:18pm Start: 06-23-2023 End: 09-22-2023 take 1 capsule [...] Comment on above: Take 1 [facility] daily. vitamin b12 0.5 mg chewable tablet (4 sources) Vitamin B12 Start: 09-08-2024 take 1 tablet by mouth once daily Start: 03-01-2020 End: 06-09-2022 inject 1 mL by intramuscular injection every month cyanocobalamin 1,000 mcg/mL Inject 1 mL intramuscularly once every month. as directed 1 Vial 11 03/01/2020 06/09/2022 Discontinued Comment on above: Inject 1 mL intramus cularly once every month. as directed Vonoprazan (6 sources) Start: 03-08-2025 take 1 tablet by mouth once daily Start: 12-13-2024 End: 03-08-2025 take 1 tablet by mouth once daily Vonoprazan (Voquezna) 10 mg tablet Discontinued 10 mg PO daily December 13, 2024 12:00am March 08, 2025 4:16pm Vonoprazan (Voquezna) 10 mg tablet (9 sources) Start: 03-08-2025 take 1 tablet by mouth once daily Vonoprazan (Voquezna) 10 mg tablet Active 10 mg PO daily 30 March 08, 2025 4:16pm Start: 12-13-2024 End: 03-08-2025 take 1 tablet by mouth once daily Vonoprazan (Voquezna) 10 mg tablet Discontinued 10 mg PO daily December 13, 2024 12:00am March 08, 2025 4:16pm Start: 12-13-2024 take 1 tablet by nimo th once daily Vonoprazan (Voquezna) 10 mg tablet Active 10 mg PO daily December 13, 2024 12:00am Start: 12-13-2024 take 1 tablet by nimo th once daily Vonoprazan (Voquezna) 10 mg tablet Active 10 mg PO daily December 13, 2024 12:00am Completed/Discontinued Medications Medication Drug Class(es) Dates Sig (Normalized) Sig (Original) Y-R4-Nnvh-Sneha-Biof l-Ging-Herb (Immune Support (Vit C,D,Zinc)) 180 mg-10 mcg- 5.5 mg-150 mg capsule (15 sources) Start: 11-08-2024 End: 01-12-2025 take 1 capsule by mouth once L-L7-Blfy-Sneha-Biofl -Ging-Herb (Immune Support (Vit C,D,Zinc)) 180 mg-10 mcg- 5.5 mg-150 mg capsule Discontinued NMA PO November 08, 2024 12:00am January 12, 2025 2:10pm Start: 11-08-2024 take 1 capsule by mo vah once Z-O3-Kete-Oyb-Xeknm-Oton-Herb (Immune Support (Vit C,D,Zinc)) 180 mg-10 mcg- [...] Active doxycycline hyclate 100 mg oral capsule (15 sources) Tetracycline-class Drug Start: 02-15-2023 End: 11-08-2024 take 1 capsule by mouth twice daily Doxycycline Hyclate 100 mg capsule Discontinued 100 mg PO TWICE A DAY 14 7 0 February 15, 2023 12:00am November 08, 2024 5:32pm ibuprofen 600 mg oral tablet (15 sources) Nonsteroidal Anti-inflammatory Drug Start: 02-05-2020 End: 05-16-2025 take 1 tablet by mouth every six hours as needed for pain Ibuprofen 600 MG tablet Discontinued 600 mg PO EVERY 6 HOURS NEEDED as needed for Pain Score 1-10/10 20 0 February 05, 2020 12:00am May 16, 2025 7:51am lactobacillus rhamnosus gg [id number] unt oral capsule (15 sources) Start: 09-08-2024 End: 11-08-2024 take 10 [...] mouth . metoclopramide 5 mg oral tablet (15 sources) Dopamine-2 Receptor Antagonist Start: 02-15-2023 End: 03-26-2025 take 1 tablet by mouth every eight hours as needed for nausea and vomiting Metoclopramide Hcl (Reglan) 5 mg tablet Discontinued 5 mg PO EVERY 8 HOURS NEEDED as needed for nausea and vomiting 20 7 0 February 15, 2023 12:00am November 08, 2024 5:33pm miSOPROStol 0.2 mg oral tablet (10 sources) Prostaglandin E1 Analog Start: 01-12-2025 End: 05-16-2025 Misoprostol (Cytotec) 200 mcg tablet Discontinued 200 ug PO .complex 2 January 12, 2025 12:00am May 16, 2025 7:36am take the night before and two hours prior to the procedure montelukast 10 mg oral tablet (2 sources) [...] pantoprazole 40 mg delayed release oral tablet (20 sources) Proton Pump Inhibitor Start: 12-13-2024 End: [...] 1 tablet by nimo th once daily. rosuvastatin calcium 10 mg oral tablet (6 sources) HMG-CoA Reductase Inhibitor Start: 5 End: 5 take 1 tablet by mouth once daily Rosuvastatin 10 mg tablet Discontinued 10 mg PO daily 90 February 14, 2025 12:00am March 02, 2025 12:49pm sennosides (SENNA-GEN ORAL) (2 sources) End: 4 take 2 tablets by mouth once daily sennosides (SENNA-GEN ORAL) Take 2 tablets by mouth once daily. 0 09/22/2023 Discontinued take 2 tablets by mouth once salo ly sennosides (SENNA-GEN ORAL) Take 2 tablets by mouth once daily. 0 Active Comment on above: Take 2 tablets by mo uth once daily. turmeric,curcumin,ging er,vitamin (15 sources) Start: 11-08-2024 End: 11-24-2024 turmeric,curcumin,calvin,v itamin Discontinued PO November 08, 2024 12:00am November 24, 2024 1:33pm Start: 11-08-2024 turmeric,curcu min,calvin,vitamin Active PO November 08, 2024 12:00am Problems Active Problems Problem Classification Problem Date Documented Da te Episodic/Chronic Allergic reactions (12 sources) Allergy to substance; Translations: [Other allergy status, other than to drugs and biological substances] Episodic Anxiety disorders (20 sources) Mixed anxiety and depressive disorder; Translations: [Anxiety disorder, unspecified] Onset: 4 Chronic Asthma (15 sources) Uncomplicated moderate persistent asthma; Translations: [Moderate persistent asthma, uncomplicated] Onset: 4 06-23-2023 Chronic Blindness and vision defects (1 source) Visual disturbance; Translations: [Unspecified visual disturbance] 09-22-2023 Episodic Coronary atherosclerosis and other heart disease (12 sources) Coronary atherosclerosis and other heart disease Diabetes mellitus without complication (15 sources) Hyperglycemia; Translations: [Hyperglycemia, unspecified] 11-10-2024 Episodic Disorders of lipid metabolism (20 sources) Hyperlipidemia; Translations: [Hyperlipidemia, unspecified] Onset: 3 Chronic Esophageal disorders (20 sources) Gastro-esophageal reflux disease without esophagitis; Translations: [Gastroesophageal reflux disease without esophagitis] Onset: 2 Chronic Essential hypertension (20 sources) Essential hypertension; Translations: [Essential (primary) hypertension] Onset: 5 09-22-2023 Chronic Comment on above: ON MEDS Gastrointestinal hemorrhage (4 sources) Gastrointestinal hemorrhage; Translations: [Hemorrhage of anus and rectum] Onset: 5 04-26-2025 Episodic Headache; including migraine (20 sources) Migraine; Translations: [Migraine, unspecified, not intractable, without status migrainosus] Onset: 5 11-08-2024 Chronic Headache; including migraine (15 sources) Headache; Translations: [Headache] 02-23-2023 Episodic Immunizations and screening for infectious disease (3 sources) Viral screening status; Translations: [Encounter for screening for other viral diseases] Episodic Malaise and fatigue (1 source) Malaise; Translations: [Other malaise] Episodic Menopausal disorders (20 sources) Postmenopausal bleeding; Translations: [Postmenopausal bleeding] Onset: 5 11-09-2024 Chronic Comment on above: s/p ablation greater than 10 years. s/p ablation greater than 10 years. Endometrial lining 4mm s/p ablation greater than 10 years. Endometrial lining 4mm. cytotec preop. Mood disorders (1 source) Mood disorders; Translations: [Depression, unspecified] Onset: 5 Nausea and vomiting (1 source) Nausea with vomiting, unspecified; Translations: [Nausea with vomiting, unspecified] Onset: 2 Episodic Nonspecific chest pain (3 sources) Chest pain, unspecified; Translations: [Chest pain, unspecified] Onset: 2 Episodic Nutritional deficiencies (14 sources) Cobalamin deficiency; Translations: [Deficiency of other specified B group vitamins] Episodic Other connective tissue disease (1 source) Pain in right lower limb; Translations: [Pain in right leg] 06-23-2023 Episodic Other connective tissue disease (1 source) Trochanteric bursitis of right hip; Translations: [Trochanteric bursitis, right hip] 06-26-2024 Episodic Other connective tissue disease (4 sources) Pain in limb; Translations: [Pain in unspecified limb] 05-16-2025 Episodic Other ear and sense organ disorders (4 sources) Tinnitus; Translations: [Tinnitus, unspecified ear] 05-16-2025 Episodic Other gastrointestinal disorders (20 sources) Burping; Translations: [Eructation] Episodic Other gastrointestinal disorders (20 sources) Constipation; Translations: [Constipation, unspecified] Episodic Other gastrointestinal disorders (20 sources) Abdominal bloating; Translations: [Abdominal distension (gaseous)] Episodic Other gastrointestinal disorders (20 sources) Chronic constipation; Translations: [Other constipation] 11-08-2024 Episodic Other gastrointestinal disorders (18 sources) Dysphagia; Translations: [Dysphagia, unspecified] 12-13-2024 Episodic Other lower respiratory disease (1 source) Shortness of breath; Translations: [Shortness of breath] Onset: 2 Episodic Other lower respiratory disease (1 source) Respiratory obstruction; Translations: [Other specified respiratory disorders] Episodic Other non-traumatic joint disorders (1 source) Joint pain; Translations: [Pain in unspecified joint] Episodic Other non-traumatic joint disorders (2 sources) Hip pain; Translations: [Pain in left hip] 06-26-2024 Episodic Other nutritional; endocrine; and metabolic disorders (16 sources) Obese class I; Translations: [Class 1 obesity] 02-14-2025 Chronic Other nutritional; endocrine; and metabolic disorders (1 source) Weight gain; Translations: [Abnormal weight gain] 04-05-2024 Episodic Other skin disorders (1 source) Eruption; Translations: [Rash and other nonspecific skin eruption] Episodic Other upper respiratory infections (1 source) Bacterial sinusitis; Translations: [Chronic sinusitis, unspecified] Chronic Peripheral and visceral atherosclerosis (10 sources) Disorder of aorta; Translations: [Atherosclerosis of aorta] 02-14-2025 Chronic Skin and subcutaneous tissue infections (15 sources) Cellulitis; Translations: [Cellulitis, unspecified] 02-23-2023 Episodic Thyroid disorders (3 sources) Goiter; Translations: [Nontoxic goiter, unspecified] Onset: 4 04-05-2024 Chronic Unclassified (1 source) Obesity, class 1; Translations: [Obesity, class 1] Onset: 5 Past or Other Problems Problem Classification Problem Date Documented Da te Episodic/Chronic Abdominal pain (20 sources) Periumbilical pain; Translations: [Right upper quadrant pain] Onset: 03-25-2022 Episodic Other aftercare (1 source) Encounter for therapeutic drug level monitoring; Translations: [Encounter for therapeutic drug monitoring] Onset: 04-05-2024 Episodic Other gastrointestinal disorders (1 source) Constipation, unspecified; Translations: [Constipation, unspecified] Onset: 12-28-2024 Episodic Other gastrointestinal disorders (1 source) Dysphagia, unspecified; Translations: [Dysphagia, unspecified] Onset: 12-13-2024 Episodic Other gastrointestinal disorders (2 sources) Abdominal distension (gaseous); Translations: [Abdominal distension (gaseous)] Onset: 11-09-2024 Episodic Other gastrointestinal disorders (1 source) Other constipation; Translations: [Other constipation] Onset: 11-14-2024 Episodic Other non-traumatic joint disorders (1 source) Pain in left hip; Translations: [Left hip pain] Onset: 06-26-2024 Episodic Other screening for suspected conditions (not mental disorders or infectious disease) (8 sources) Patient encounter status; Translations: [Encounter for screening for lipoid disorders] Onset: 02-19-2025 Episodic Unclassified (1 source) Patient encounter status 01-30-2025 Results Test Name Value Interpretation Reference Range Facility Urine Cultureon 06-21-2025 [facility] Below infection leve l. Mixed Gram Positive Organisms Dracut Count 1000-10,000 MIXC Mixed contaminants. Submit a new specimen if indicated. Normal [facility] Comment on above: Performed By: #### M [id number] ####[facility] [id number] [facility] [place], [address] 12 Lead EKGon 06-19-2025 12 Lead EKG [facility] [address] [place] [address] 12 Lead EKG 06/19/25 1124 MR#: [id number] Acct: [id number] Name: POLINA THOMSON Rep #: [id number] : 1965 60 From: Jamari Michael MD Attending Dr: Status: DEP ER Ordering Dr: Carolina Navarro DO Date: 06/19/25 Location: ED Sex: F C Admitted: Test Reason : Blood Pressure : */* mmHG Vent. Rate : 53 BPM Atrial Rate : 53 BPM P-R Int : 174 ms QRS Dur : 102 ms QT Int : 442 ms P-R-T Axes : 49 37 32 degrees QTcB Int : 414 ms Sinus bradycardia Nonspecific ST abnormality -probable baseline artifact Abnormal ECG Confirmed by Jamari Michael ([id number]), editorial specialist FATIMAH CABA ([id number]) on 06/20/2025 2:11:35 PM Referred By: Confirmed By: Jamari Michael 06/20/25 1411 Date Jamari Michael MD CC: Dr. Carolina Navarro DO; Dr. Willie Adams MD Signed Normal [facility] CBC W/Diff, Automatedon 11-0 4-2024 Absolute Lymph 1.87 X10 3/uL Normal 0.83-4.51 [facility] Comment on above: Order Comment: REDRA W. PREVIOUS SPECIMEN REJECTED DUE TO CLOTTED. 06/19/25 1235 Jenise Charlton. Performed By: #### L 100.0100 #### [facility] [address] [place], [address] Absolute Neut 3.2 X10 3/uL Normal 2.0-7.7 [facility] Comment on above: Order Comment: REDRA W. PREVIOUS SPECIMEN REJECTED DUE TO CLOTTED. 06/19/25 1235 Jenise Charlton. Performed By: #### L 100.0100 #### [facility] [address] [place], [address] Basophils/100 WBC (Bld) 0.7 % Normal 0-1 [facility] Comment on above: Order Comment: REDRA W. PREVIOUS SPECIMEN REJECTED DUE TO CLOTTED. 06/19/25 1235 Jenise Charlton. Performed By: #### L 100.0100 #### [facility] [address] [place], [address] Eosinophils/100 WBC (Bld) 2.1 % Normal 0-5 [facility] Comment on above: Order Comment: REDRA W. PREVIOUS SPECIMEN REJECTED DUE TO CLOTTED. 06/19/25 1235 Jenise Charlton. Performed By: #### L 100.0100 #### [facility] [address] [place], [address] Erythrocyte distribution width (RBC) [Ratio] 12.3 % Normal 11.6-14.6 [facility] Comment on above: Order Comment: REDRA W. PREVIOUS SPECIMEN REJECTED DUE TO CLOTTED. 06/19/25 1235 Jenise Charlton. Performed By: #### L 100.0100 #### [facility] [address] [place], [address] Hematocrit (Bld) [Volume fraction] 35.1 % Low 37-47 [facility] Comment on above: Order Comment: REDRA W. PREVIOUS SPECIMEN REJECTED DUE TO CLOTTED. 06/19/25 1235 Jenise Charlton. Performed By: #### L 100.0100 #### [facility] [address] [place], [address] Hemoglobin (Bld) [Mass/Vol] 11.5 g/dL Low 12.0-15.0 [facility] Comment on above: Order Comment: REDRA W. PREVIOUS SPECIMEN REJECTED DUE TO CLOTTED. 06/19/25 1235 Jenise Charlton. Performed By: #### L 100.0100 #### [facility] [address] [place], [address] IG% 0.400 Normal 0.0-0.9 [facility] Comment on above: Order Comment: REDRA W. PREVIOUS SPECIMEN REJECTED DUE TO CLOTTED. 06/19/25 1235 Jenise Charlton. Result Comment: IG% - Immature Granulocytes (promyelocytes, myelocytes and metamyelocytes) > 1% indicates that a LEFT SHIFT is Present. Performed By: #### L 100.0100 #### [facility] [address] [place], [address] Lymphocytes/100 WBC (Bld) 33.0 % Normal 19-41 [facility] Comment on above: Order Comment: REDRA W. PREVIOUS SPECIMEN REJECTED DUE TO CLOTTED. 06/19/25 1235 Jenise Charlton. Performed By: #### L 100.0100 #### [facility] [address] [place], [address] MCH (RBC) [Entitic mass] 29.0 pg Normal 27.0-32.0 [facility] Comment on above: Order Comment: REDRA W. PREVIOUS SPECIMEN REJECTED DUE TO CLOTTED. 06/19/25 1235 Jenise Charlton. Performed By: #### L 100.0100 #### [facility] [address] [place], [address] MCHC (RBC) [Mass/Vol] 32.8 g/dL Normal 32-36 [facility] Comment on above: Order Comment: REDRA W. PREVIOUS SPECIMEN REJECTED DUE TO CLOTTED. 06/19/25 1235 Jenise Charlton. Performed By: #### L 100.0100 #### [facility] [address] [place], [address] MCV (RBC) [Entitic vol] 88.4 fL Normal 81-99 [facility] Comment on above: Order Comment: REDRA W. PREVIOUS SPECIMEN REJECTED DUE TO CLOTTED. 06/19/25 1235 Jenise Charlton. Performed By: #### L 100.0100 #### [facility] [address] [place], [address] Monocytes/100 WBC (Bld) 7.4 % Normal 0-10 [facility] Comment on above: Order Comment: REDRA W. PREVIOUS SPECIMEN REJECTED DUE TO CLOTTED. 06/19/25 1235 Jenise Charlton. Performed By: #### L 100.0100 #### [facility] [address] [place], [address] Neutrophils/100 WBC (Bld) 56.4 % Normal 47-70 [facility] Comment on above: Order Comment: REDRA W. PREVIOUS SPECIMEN REJECTED DUE TO CLOTTED. 06/19/25 1235 Jenise Charlton. Performed By: #### L 100.0100 #### [facility] [address] [place], [address] Nucleated RBC (Bld) [#/Vol] 0 10*3/uL Normal 0-5 [facility] Comment on above: Order Comment: REDRA W. PREVIOUS SPECIMEN REJECTED DUE TO CLOTTED. 06/19/25 1235 Jenise Charlton. Performed By: #### L 100.0100 #### [facility] [address] [place], [address] Platelet mean volume (Bld) [Entitic vol] 10.1 fL Normal 6.2-12.0 [facility] Comment on above: Order Comment: REDRA W. PREVIOUS SPECIMEN REJECTED DUE TO CLOTTED. 06/19/25 1235 Jenise Charlton. Performed By: #### L 100.0100 #### [facility] [address] [place], [address] Platelets (Bld) [#/Vol] 251 10*3/uL Normal 150-450 [facility] Comment on above: Order Comment: REDRA W. PREVIOUS SPECIMEN REJECTED DUE TO CLOTTED. 06/19/25 1235 Jenise Charlton. Performed By: #### L 100.0100 #### [facility] [address] [place], [address] RBC (Bld) [#/Vol] 3.97 10*6/uL Low 4.2-5.4 [facility] Comment on above: Order Comment: REDRA W. PREVIOUS SPECIMEN REJECTED DUE TO CLOTTED. 06/19/25 1235 Jenise Charlton. Performed By: #### L 100.0100 #### [facility] [address] [place], [address] RDW SD 39.9 fl Normal 35.1-43.9 [facility] Comment on above: Order Comment: REDRA W. PREVIOUS SPECIMEN REJECTED DUE TO CLOTTED. 06/19/25 1235 Jenise Charlton. Performed By: #### L 100.0100 #### [facility] [address] [place], [address] WBC (Bld) [#/Vol] 5.7 10*3/uL Normal 4.4-11.0 [facility] Comment on above: Order Comment: REDRA W. PREVIOUS SPECIMEN REJECTED DUE TO CLOTTED. 06/19/25 1235 Jenise Charlton. Performed By: #### L 100.0100 #### [facility] [address] [place], [address] Absolute Neut Normal 2.0-7.7 [facility] Comment on above: Result Comment: This specimen has been REJECTED due to Laboratory criteria: Clotted. [facility] has been notified of need of recollection. 06/19/25 1235 Jenise Charlton Performed By: #### L 499.0042 #### [facility] [address] [facility] [address] HCT Normal 37-47 [facility] Comment on above: Result Comment: This specimen has been REJECTED due to Laboratory criteria: Clotted. [facility] has been notified of need of recollection. 06/19/25 1235 Jenise Charlton Performed By: #### L 499.0042 #### [facility] [address] [place], [address] HGB Normal 12.0-15.0 [facility] Comment on above: Result Comment: This specimen has been REJECTED due to Laboratory criteria: Clotted. [facility] has been notified of need of recollection. 06/19/25 1235 Jenise Charlton Performed By: #### L 499.0042 #### [facility] [address] [facility] [address] MCH Normal 27.0-32.0 [facility] Comment on above: Result Comment: This specimen has been REJECTED due to Laboratory criteria: Clotted. [facility] has been notified of need of recollection. 06/19/25 1235 Jenise Charlton Performed By: #### L 499.0042 #### [facility] [address] [place], [address] MCHC Normal 32-36 [facility] Comment on above: Result Comment: This specimen has been REJECTED due to Laboratory criteria: Clotted. [facility] has been notified of need of recollection. 06/19/25 1235 Jenise Charlton Performed By: #### L 499.0042 #### [facility] [address] [place], [address] MCV Normal 81-99 [facility] Comment on above: Result Comment: This specimen has been REJECTED due to Laboratory criteria: Clotted. [facility] has been notified of need of recollection. 06/19/25 1235 Jenise Charlton Performed By: #### L 499.0042 #### [facility] [address] [facility] [address] NEUT% Normal 47-70 [facility] Comment on above: Result Comment: This specimen has been REJECTED due to Laboratory criteria: Clotted. [facility] has been notified of need of recollection. 06/19/25 1235 Jenise Charlton Performed By: #### L 499.0042 #### [facility] [address] [facility] [address] PLT Normal 150-450 [facility] Comment on above: Result Comment: This specimen has been REJECTED due to Laboratory criteria: Clotted. [facility] has been notified of need of recollection. 06/19/25 1235 Jenise Charlton Performed By: #### L 499.0042 #### [facility] [address] [facility] [address] RBC Normal 4.2-5.4 [facility] Comment on above: Result Comment: This specimen has been REJECTED due to Laboratory criteria: Clotted. [facility] has been notified of need of recollection. 06/19/25 1235 Jenise Charlton Performed By: #### L 499.0042 #### [facility] [address] [place], [address] RDW CV Normal 11.6-14.6 [facility] Comment on above: Result Comment: This specimen has been REJECTED due to Laboratory criteria: Clotted. [facility] has been notified of need of recollection. 06/19/25 1235 Jenise Charlton Performed By: #### L 499.0042 #### [facility] [address] [place], [address] RDW SD Normal 35.1-43.9 [facility] Comment on above: Result Comment: This specimen has been REJECTED due to Laboratory criteria: Clotted. [facility] has been notified of need of recollection. 06/19/25 1235 Jenise Charlton Performed By: #### L 499.0042 #### [facility] [address] [place], [address] WBC Normal 4.4-11.0 [facility] Comment on above: Result Comment: This specimen has been REJECTED due to Laboratory criteria: Clotted. [facility] has been notified of need of recollection. 06/19/25 1235 Jenise Charlton Performed By: #### L 499.0042 #### [facility] [address] [place], [address] Comprehensive Metabolic Prof laon 06-19-2025 Albumin [Mass/Vol] 4.1 g/dL Normal 3.5-5.0 [facility] Comment on above: Performed By: #### L 499.0042 #### [facility] [address] [place], [address] Albumin/Globulin [Mass ratio] 1.6 {ratio} Normal 0.9-2.4 [facility] Comment on above: Performed By: #### L 499.0042 #### [facility] [address] [place], [address] ALK PHOS 95 U/L Normal 35-104 [facility] Comment on above: Performed By: #### L 499.0042 #### [facility] [address] [place], [address] ALT [Catalytic activity/Vol] 18 U/L Normal <=34 [facility] Comment on above: Performed By: #### L 499.0042 #### [facility] [address] [place], [address] AST [Catalytic activity/Vol] 28 U/L Normal <=31 [facility] Comment on above: Result Comment: Hemo lysis present, Results??could be affected. ?? Performed By: #### L 499.0042 #### [facility] [address] [place], [address] Bilirubin [Mass/Vol] 0.24 mg/dL Normal 0.00-1.30 [facility] Comment on above: Performed By: #### L 499.0042 #### [facility] [address] [place], [address] BUN/CRE 16.3 RATIO Normal 10-20 [facility] Comment on above: Performed By: #### L 499.0042 #### [facility] [address] [place], [address] Calcium [Mass/Vol] 9.1 mg/dL Normal 7.6-11.0 [facility] Comment on above: Performed By: #### L 499.0042 #### [facility] [address] [place], [address] Chloride [Moles/Vol] 105 mmol/L Normal 98-108 [facility] Comment on above: Performed By: #### L 499.0042 #### [facility] [address] [place], [address] CO2 [Moles/Vol] 26.4 mmol/L Normal 21.0-32.0 [facility] Comment on above: Performed By: #### L 499.0042 #### [facility] [address] [place], [address] Creatinine [Mass/Vol] 0.94 mg/dL Normal 0.70-1.20 [facility] Comment on above: Performed By: #### L 499.0042 #### [facility] [address] [place], [address] GAP 10 Normal 5-15 [facility] Comment on above: Performed By: #### L 499.0042 #### [facility] [address] [place], [address] GFR/1.73 sq M.predicted among non-blacks MDRD (S/P/Bld) [Vol rate/Area] 71 mL/min/{1.73_m2} Normal >60 [facility] Comment on above: Result Comment: mL/m in/1.73m2 CKD-EPI Creatinine Equation (2020) Performed By: #### L 499.0042 #### [facility] [address] [place], [address] Globulin (S) [Mass/Vol] 2.6 g/dL Normal 2.2-4.2 [facility] Comment on above: Performed By: #### L 499.0042 #### [facility] [address] [place], [address] Glucose [Mass/Vol] 83 mg/dL Normal 70-99 [facility] Comment on above: Performed By: #### L 499.0042 #### [facility] [address] [place], [address] Potassium [Moles/Vol] 4.8 mmol/L Normal 3.3-5.1 [facility] Comment on above: Result Comment: Hemo lysis present, Results??could be affected. ?? Performed By: #### L 499.0042 #### [facility] [address] [place], [address] Sodium [Moles/Vol] 141 mmol/L Normal 133-145 [facility] Comment on above: Performed By: #### L 499.0042 #### [facility] [address] [place], [address] T PROT 6.7 g/dL Normal 5.9-8.4 [facility] Comment on above: Performed By: #### L 499.0042 #### [facility] [address] [place], [place], [address] Urea nitrogen [Mass/Vol] 15 mg/dL Normal 4-19 [facility] Comment on above: Performed By: #### L 499.0042 #### [facility] [address] [place], [place], [address] D-Dimer Quantitative (DVT/PE )on 06-19-2025 D-DIMER QUANT 0.40 FEU/ug/m Normal 0.27-0.49 [facility] Comment on above: Result Comment: NORM AL D-Dimer level (<0.50) indicates no DVT or PE. Performed By: #### L 499.0042 #### [facility] [address] [place], [address] Emergency Department Summary on 06-19-2025 Emergency Department Summary [facility] Medical Records Department [address] [place] [address] Emergency Department Summary 06/19/25 MR#: [id number] Acct: [id number] Name: POLINA THOMSON Rep #: [id number] : 1965 60 From: Carolina Navarro DO PCP: Dr. Willie Adams MD Status:DEP ER Location: ED HPI History of Present Illness Chief Complaint: Syncope Informant: patient Narrative Narrative: Patient is a 60-year-old female with history of POTS, aortic calcification, tendinitis, reports history of vertigo, anxiety, depression, hypertension hyperlipidemia presenting from work after near syncopal episode. Patient states she turned her head to hot die picker the phone and then all of a sudden everything seemed scrambled. She states she felt she was going to pass out and describes as a lightheadedness sensation. It did not feel like vertigo. She states she is never felt like this before. Coworker lowered her to the ground. 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 She notes that over the past few days she has been feeling tired. She states she does get some intermittent weird pain that she describes as streaking pain across her chest that only last for couple seconds at a time. She states since having COVID a couple years ago she is always a little short of breath but today when walking to work she felt more winded than normal. She states that she has allergies and has been coughing for a while but denies any change in this. No fever or chills reported. No numbness or tingling appreciated. Currently not have any vision changes. No other complaints or concerns at this time. [facility] Medical History Tinnitus Musculoskeletal pain of extremity Aortic calcification Dermatitis Chronic abdominal pain Obesity (BMI 30.0-34.9) Bite from insect Leg cramps Wears glasses [...] Medications ???Medication ???Instructions ???Recorded ???Last Taken ???Type mecobalamin (vitamin B12) 500 mcg 500 mcg PO DAILY supplement 09/0806/19/25 History chewable tablet suzibbyx-uqv-ptgio ac 400 1 tab PO DAILY supplement 11/08/24 06/19/25 History mcg-calcium carb 500 mg-vit K1 20 mcg tablet (Women's 50 Plus Multivitamin) sumatriptan succinate 25 mg tablet See Rx Instructions PO .COMPLEX 11/29/24 Unknown History (Imitrex) PRN migraine headache venlafaxine 75 mg capsule,extended 75 mg PO QHS depression 11/29/24 06/18/25 History release 24 hr magnesium 250 mg tablet 500 mg PO QHS supplement 01/17/25 06/18/25 History pravastatin 10 mg tablet 10 mg PO QHS cholesterol #30 tabs 03/02/25 06/18/25 Rx vonoprazan 10 mg tablet (Voquezna) 10 mg PO QDAY gerd #30 tabs 02/1406/19/25 Rx famotidine 40 mg tablet 40 mg PO BID gerd #60 tabs 2 5 06/19/25 Rx collagen powder PO DAILY 05/16/25 06/18/25 History creatine powder PO DAILY 05/16/25 06/18/25 History triamcinolone acetonide 0.1 % 1 applic topical BID PRN itching 1 Unknown History topical cream propranolol 60 mg capsule,24 60 mg PO QHS heart #90 caps 06/18/25 Rx hr,extended release meloxicam 15 mg tablet 15 mg PO PRN inflammation 06/19/25 06/16/25 History Allergy/AdvReac Type Severity Reaction Status Date / Time perfume Allergy throat Verified 06/19/25 10:59 swelling Family History Mother Anxiety Depression Heart disease Mental disorder Severe allergy Pacemaker Father High cholesterol Cancer lung/lymphoma Aunt Arthritis Cancer lymphoma Stomach cancer maternal aunt Aunt Cancer Sister Depression Mental disorder Hypertension Brother Cancer lymphoma Depression Mental disorder Grandmother Heart disease Severe allergy Cancer in stomach Grandfather Suicide Surgical History History of hysteroscopy H/O dilation and curettage H/O lithotripsy H/O prior ablation treatment History of appendectomy History of carpal tunnel surgery (more content not included)... Normal [facility] L501.4021on 06-19-2025 Trop T High Sen < 6 Normal <=14 [facility] Comment on above: Performed By: #### L 499.0042 #### [facility] [address] [place], [place], [address] Troponin T HS 2 HRon 025 Trop T High Sen < 6 Normal <=14 [facility] Comment on above: Performed By: #### L 499.0042 #### [facility] [address] [place], [place], [address] Troponin T HS 4 HRon 025 Trop T High Sen Normal <=14 [facility] Comment on above: Result Comment: Canc elled via OM: Order cancelled - Patient discharged Performed By: #### L 499.0043 ####[facility] [address] [place], [address] Urinalysis, Completeon 06-19 BACTERIA 2+ /hpf Normal None Seen [facility] Comment on above: Order Comment: CLEAN CATCH Performed By: #### L 400.0001 #### [facility] [address] [place], [address] EPI,SQUAMOUS 10-25 SEEN Normal 5-10 [facility] Comment on above: Order Comment: CLEAN CATCH Performed By: #### L 400.0001 #### [facility] [address] [place], [address] Mucus Ql (Urine sed) 1+ /hpf Normal [facility] Comment on above: Order Comment: CLEAN CATCH Performed By: #### L 400.0001 #### [facility] [address] [place], [address] WBC 10-25 SEEN Normal 0-5 [facility] Comment on above: Order Comment: CLEAN CATCH Performed By: #### L 400.0001 #### [facility] [address] [place], [address] RBC 0 SEEN Normal 0-5 [facility] Comment on above: Order Comment: CLEAN CATCH Performed By: #### L 400.0001 #### [facility] [address] [place], [address] Anion gap in Serum or Plasma Ordered By: Willie Adams on 05-16-2025 Anion gap [Moles/Vol] 10 mmol/L - [facility] BUN/creatinine ratioOrdered By: Willie Adams on 05-16-2025 Urea nitrogen/Creatinine [Mass ratio] 18.0 mg/mg - [facility] Bilirubin, totalOrdered By: Willie Adams on 05-16-2025 Bilirubin [Mass/Vol] 0.26 mg/dL 0.00-1.30 [facility] Calculated very low density lipoprotein (VLDL) cholesterol measurementOrdered By: Willie Adams on 05-16-2025 Calculated very low density lipoprotein (VLDL) cholesterol measurement 36 mg/dL 5-40 [facility] Carbon dioxide, total [Moles /volume] in Central venous bloodOrdered By: Willie Adams on 05-16-2025 CO2 [Moles/Vol] 23.7 mmol/L 21.0-32.0 [facility] Chloride assayOrdered By: Mike Adams on 05-16-2025 Chloride [Moles/Vol] 107 mmol/L 98-108 [facility] Comprehensive Metabolic Prof ilon 05-16-2025 Albumin [Mass/Vol] 4.1 g/dL Normal 3.5-5.0 [facility] Comment on above: Performed By: #### L 500.4100, L500.4050 #### [facility] [address] [place], [address] Albumin/Globulin [Mass ratio] 1.6 {ratio} Normal 0.9-2.4 [facility] Comment on above: Performed By: #### L 500.4100, L500.4050 #### [facility] [address] [place], [address] ALK PHOS 108 U/L High 35-104 [facility] Comment on above: Performed By: #### L 500.4100, L500.4050 #### [facility] [address] [place], [address] ALT [Catalytic activity/Vol] 14 U/L Normal <=34 [facility] Comment on above: Performed By: #### L 500.4100, L500.4050 #### [facility] [address] [place], [address] AST [Catalytic activity/Vol] 19 U/L Normal <=31 [facility] Comment on above: Performed By: #### L 500.4100, L500.4050 #### [facility] [address] [place], [address] Bilirubin [Mass/Vol] 0.26 mg/dL Normal 0.00-1.30 [facility] Comment on above: Performed By: #### L 500.4100, L500.4050 #### [facility] [address] [place], [address] BUN/CRE 18.0 RATIO Normal 10-20 [facility] Comment on above: Performed By: #### L 500.4100, L500.4050 #### [facility] [address] [place], [address] Calcium [Mass/Vol] 9.4 mg/dL Normal 7.6-11.0 [facility] Comment on above: Performed By: #### L 500.4100, L500.4050 #### [facility] [address] [place], [address] Chloride [Moles/Vol] 107 mmol/L Normal 98-108 [facility] Comment on above: Performed By: #### L 500.4100, L500.4050 #### [facility] [address] [place], [address] CO2 [Moles/Vol] 23.7 mmol/L Normal 21.0-32.0 [facility] Comment on above: Performed By: #### L 500.4100, L500.4050 #### [facility] [address] [place], [address] Creatinine [Mass/Vol] 1.00 mg/dL Normal 0.70-1.20 [facility] Comment on above: Performed By: #### L 500.4100, L500.4050 #### [facility] [address] [place], [address] GAP 10 Normal 5-15 [facility] Comment on above: Performed By: #### L 500.4100, L500.4050 #### [facility] [address] [place], [address] GFR/1.73 sq M.predicted among non-blacks MDRD (S/P/Bld) [Vol rate/Area] 66 mL/min/{1.73_m2} Normal >60 [facility] Comment on above: Result Comment: mL/m in/1.73m2 CKD-EPI Creatinine Equation (2020) Performed By: #### L 500.4100, L500.4050 #### [facility] [address] [place], [address] Globulin (S) [Mass/Vol] 2.6 g/dL Normal 2.2-4.2 [facility] Comment on above: Performed By: #### L 500.4100, L500.4050 #### [facility] [address] [place], [address] Glucose [Mass/Vol] 99 mg/dL Normal 70-99 [facility] Comment on above: Performed By: #### L 500.4100, L500.4050 #### [facility] [address] [place], [address] Potassium [Moles/Vol] 4.5 mmol/L Normal 3.3-5.1 [facility] Comment on above: Performed By: #### L 500.4100, L500.4050 #### [facility] [address] [place], [address] Sodium [Moles/Vol] 141 mmol/L Normal 133-145 [facility] Comment on above: Performed By: #### L 500.4100, L500.4050 #### [facility] [address] [place], [address] T PROT 6.7 g/dL Normal 5.9-8.4 [facility] Comment on above: Performed By: #### L 500.4100, L500.4050 #### [facility] [address] [place], [place], [id number] Urea nitrogen [Mass/Vol] 18 mg/dL Normal 4-19 [facility] Comment on above: Performed By: #### L 500.4100, L500.4050 #### [facility] [address] [place], [place], [id number] Glomerular filtration rate ( GFR) estimation/1.73 sq m using serum, plasma, or whole bOrdered By: Willie Adams on 05-16-2025 GFR/1.73 sq M.predicted among non-blacks MDRD (S/P/Bld) [Vol rate/Area] 66 mL/min/{1.73_m2} >60 [facility] Comment on above: mL/min/1.73m2 CKD-EP I Creatinine Equation (2020) Internal Medicine Office Vis iton 05-16-2025 Internal Medicine Office Visit [facility] [address] [place], [place] [address] OFFICE VISIT Date of Service: 05/16/25 MR#: [id number] Acct: [id number] Name: POLINA THOMSON Rep #: [id number] : 1965 Provider: Dr. Willie rae MD Age/Sex: 60/F Location: [facility] Status: Signed Intake Vital Signs 02/14/25 17:38 05/01/25 16:00 05/16/25 07:37 Height 5 ft 7 in 5 ft 7 in 5 ft 7 in Weight: 201 lb BMI 31.4 BP 120/80 Blood Pressure Location Lt brachial Position Sitting Respiration 14 Pulse 63 Pulse Source Monitor Temp 97.6 F L Temp Source Temporal Pulse Oximetry (%) 98 Oxygen Delivery Method room air Intake Visit Reasons: 3 M FU Chief Complaint: FU Chronic Conditions Supervisor Gear Repair Required: No Is patient in pain?: Yes (R arm) Pain scale (1-10): 5 Allergies perfume Allergy (Verified 05/16/25 07:24) throat swelling Medications ???Medication ???Instructions ???Recorded ???Confirmed ???Type mecobalamin (vitamin B12) 500 mcg 500 mcg PO .QD 09/08/24 05/16/25 History chewable tablet kbexxadw-flb-kjijq ac 400 1 tab PO .QD 11/08/24 05/16/25 His tory mcg-calcium carb 500 mg-vit K1 20 mcg tablet (Women's 50 Plus Multivitamin) sennosides 8.6 mg capsule (senna) 8.6 mg PO QDAY PRN constipation 0 11/08/24 05/16/25 History sumatriptan succinate 25 mg tablet See Rx Instructions PO .COMPLEX 11/29/24 05/16/25 History (Imitrex) PRN migraine headache venlafaxine 75 mg capsule,extended 75 mg PO QHS 11/29/24 05/16/25 H istory release 24 hr magnesium 250 mg tablet 250 mg PO QHS 01/17/25 05/16/25 Hi story propranolol 60 mg capsule,24 60 mg PO QHS #60 caps 01/31/2509/09 Rx hr,extended release pravastatin 10 mg tablet 10 mg PO QHS #30 tabs 03/02/2509/09 Rx vonoprazan 10 mg tablet (Voquezna) 10 mg PO QDAY #30 tabs 03/08/25 05/16/25 Rx famotidine 40 mg tablet 40 mg PO BID eructation #60 tabs 0 03/14/25 05/16/25 Rx collagen powder PO 05/16/25 History creatine powder PO 05/16/25 History meloxicam 15 mg tablet 15 mg PO QDAY #60 tabs 05/16/25 Rx triamcinolone acetonide 0.1 % applic topical BID 05/16/25 History topical cream PFSH Medical History (Updated 05/16/25 @ 08:[address] Willie Adams MD) Tinnitus Musculoskeletal pain of extremity Aortic calcification Dermatitis Chronic abdominal pain Obesity (BMI 30.0-34.9) Bite from insect Leg cramps Wears glasses [...] syndrome Asthma Anemia Seasonal allergies Surgical History History of hysteroscopy H/O dilation and curettage [...] 3 current occupational status: employed current occupation: [employer] current occupational exposures/hazards: No pets [...] 10 lbs what type of physical activity (more content not included)... Normal [facility] LDL calc ser/plasOrdered By: Willie Adams on 05-16-2025 Cholesterol in LDL [Mass/Vol] 77 mg/dL [facility] Comment on above: Shzoprzlqb=473-351 m g/dL & Higher Apmp=961 mg/dL or greaterFriedwald Equation for LDL-C Laboratory - Chemistry and C hemistry - challengeOrdered By: Willie Adams on 05-16-2025 AST [Catalytic activity/Vol] 19 U/L <32 [facility] Lipid Profileon 05-16-2025 CHOL:HDL 3.07 Normal [facility] Comment on above: Performed By: #### L 500.4100, L500.4050 #### [facility] [address] [place], [address] Cholesterol [Mass/Vol] 168 mg/dL Normal <=200 [facility] Comment on above: Result Comment: Chol esterol level, Desirable <200 mg/dL Borderline high cholesterol 200-239 mg/dL High cholesterol >=240 mg/dL Recommendations of the NCEP Adult Treatment Panel for the following risk-cutoff thresholds for the [place] population. Performed By: #### L 500.4100, L500.4050 #### [facility] [address] [place], [address] Cholesterol in HDL [Mass/Vol] 55 mg/dL Normal [facility] Comment on above: Result Comment: Jacqueline onal Cholesterol Education Program (NCEP) guidelines: <40 mg/dL: Low HDL-cholesterol (major risk factor for CHD) >= 60 mg/dL: High HDL-cholesterol (negative risk factor for CHD) HDL-cholesterol is affected by a number of factors, e.g. smoking, exercise, hormones, sex and age. Performed By: #### L 500.4100, L500.4050 #### [facility] [address] [place], [address] Cholesterol in LDL [Mass/Vol] 77 mg/dL Normal [facility] Comment on above: Result Comment: Bord dvddzi=580-760 mg/dL Higher Xvjx=909 mg/dL or greater Friedwald Equation for LDL-C Performed By: #### L 500.4100, L500.4050 #### [facility] [address] [place], [address] Cholesterol in VLDL [Mass/Vol] 36 mg/dL Normal 5-40 [facility] Comment on above: Performed By: #### L 500.4100, L500.4050 #### [facility] [address] [place], [address] Triglyceride [Mass/Vol] 181 mg/dL Normal [facility] Comment on above: Result Comment: The drugs N-Acetylcysteine and Metamizole may falsely depress this assay. Normal range: <150 mg/dL Borderline High: 150-199 mg/dL High: 200-499 mg/dL Very High: >500 mg/dL Performed By: #### L 500.4100, L500.4050 #### [facility] [address] [place], [address] Potassium measurement (mass/ volume)Ordered By: Willie Adams on 05-16-2025 Potassium (Unsp spec) [Mass/Vol] 4.5 mmol/L 3.3-5.1 [facility] Screening total cholesterol/ high density lipoprotein (HDL) cholesterol ratioOrdered By: Willie Adams on 05-16-2025 Cholesterol.total/Choles terol in HDL [Mass ratio] 3.07 {ratio} [facility] Serum creatinine measurement (mass/volume)Ordered By: Willie Adams on 05-16-2025 Creatinine [Mass/Vol] 1.00 mg/dL 0.70-1.20 [facility] Serum globulin measurementOr dered By: Willie Adams on 05-16-2025 Globulin (S) [Mass/Vol] 2.6 g/dL 2.2-4.2 [facility] Serum glucose measurement (m ass/volume)Ordered By: Willie Adams on 05-16-2025 Glucose [Mass/Vol] 99 mg/dL 70-99 [facility] Serum or plasma alanine oakley otransferase (ALT) measurementOrdered By: Willie Adams on 05-16-2025 ALT [Catalytic activity/Vol] 14 U/L <35 [facility] Serum or plasma albumin carlito urement (mass/volume)Ordered By: Willie Adams on 05-16-2025 Albumin [Mass/Vol] 4.1 g/dL 3.5-5.0 [facility] Serum or plasma albumin/glob ulin mass ratioOrdered By: Willie Adams on 05-16-2025 Albumin/Globulin [Mass ratio] 1.6 {ratio} 0.9-2.4 [facility] Serum or plasma alkaline dez sphatase measurementOrdered By: Willie Adams on 05-16-2025 ALP [Catalytic activity/Vol] 108 U/L High 35-104 [facility] Serum or plasma calcium carlito urement (mass/volume)Ordered By: Willie Adams on 05-16-2025 Calcium [Mass/Vol] 9.4 mg/dL 7.6-11.0 [facility] Serum or plasma cholesterol in HDL measurement (mass/volume)Ordered By: Willie Adams 05-16-2025 Cholesterol in HDL [Mass/Vol] 55 mg/dL >40 [facility] Comment on above: National Cholesterol Education Program (NCEP) guidelines:<40 mg/dL: Low HDL-cholesterol (major risk factor for CHD)>= 60 mg/dL: High HDL-cholesterol (negative risk factor for CHD)HDL-cholesterol is affected by a number of factors, e.g. smoking, exercise, hormones, sex and age. Serum or plasma cholesterol measurement (mass/volume)Ordered By: Willie Adams on 05-16-2025 Cholesterol [Mass/Vol] 168 mg/dL <201 [facility] Comment on above: Cholesterol level, D esirable <200 mg/dLBorderline high cholesterol 200-239 mg/dLHigh cholesterol >=240 mg/dLRecommendations of the NCEP Adult Treatment Panel for the following risk-cutoff thresholds for the [place] population. Serum or plasma urea nitroge n measurement (mass/volume)Ordered By: Willie Adams on 05-16-2025 Urea nitrogen [Mass/Vol] 18 mg/dL 4-19 [facility] Sodium levelOrdered By: Joaquin Adams on 05-16-2025 Sodium [Moles/Vol] 141 mmol/L 133-145 [facility] Total proteinOrdered By: Ata Adams 05-16-2025 Protein [Mass/Vol] 6.7 g/dL 5.9-8.4 [facility] Triglycerides measurementOrd ered By: Willie Culpnkechi on 05-16-2025 Triglyceride [Mass/Vol] 181 mg/dL <199 [facility] Comment on above: The drugs N-Acetylcy steine and Metamizole may falsely depress this assay. Normal range: <150 mg/dLBorderline High: 150-199 mg/dLHigh: 200-499 mg/dLVery High: >500 mg/dL Absolute lymphocyte countOrd ered By: Alma Melton on 04-26-2025 Lymphocytes Auto (Unsp spec) [#/Vol] 2.05 10*3/uL 0.83-4.51 [facility] Absolute neutrophil countOrd ered By: Alma Melton on 04-26-2025 Neutrophils (Bld) [#/Vol] 2.8 10*3/uL 2.0-7.7 [facility] Automated lymphocyte count a s percentage of total leukocytesOrdered By: Alma Melton on 04-26-2025 Lymphocytes/100 WBC Auto (Unsp spec) 36.0 % 19-41 [facility] Basophil percentageOrdered B y: Alma Melton on 04-26-2025 Basophils/100 WBC (Bld) 1.2 % High 0-1 [facility] CBC W/Diff, Automatedon 04-16 Absolute Lymph 2.05 X10 3/uL Normal 0.83-4.51 [facility] Comment on above: Performed By: #### L 100.0100 #### [facility] [address] [place], [address] Absolute Neut 2.8 X10 3/uL Normal 2.0-7.7 [facility] Comment on above: Performed By: #### L 100.0100 #### [facility] [address] [place], [address] Basophils/100 WBC (Bld) 1.2 % High 0-1 [facility] Comment on above: Performed By: #### L 100.0100 #### [facility] [address] [place], [address] Eosinophils/100 WBC (Bld) 2.8 % Normal 0-5 [facility] Comment on above: Performed By: #### L 100.0100 #### [facility] [address] [place], [address] Erythrocyte distribution width (RBC) [Ratio] 11.9 % Normal 11.6-14.6 [facility] Comment on above: Performed By: #### L 100.0100 #### [facility] [address] [place], [address] Hematocrit (Bld) [Volume fraction] 38.2 % Normal 37-47 [facility] Comment on above: Performed By: #### L 100.0100 #### [facility] [address] [place], [address] Hemoglobin (Bld) [Mass/Vol] 12.5 g/dL Normal 12.0-15.0 [facility] Comment on above: Performed By: #### L 100.0100 #### [facility] [address] [place], [address] IG% 0.400 Normal 0.0-0.9 [facility] Comment on above: Result Comment: IG% - Immature Granulocytes (promyelocytes, myelocytes and metamyelocytes) > 1% indicates that a LEFT SHIFT is Present. Performed By: #### L 100.0100 #### [facility] [address] [place], [address] Lymphocytes/100 WBC (Bld) 36.0 % Normal 19-41 [facility] Comment on above: Performed By: #### L 100.0100 #### [facility] [address] [place], [address] MCH (RBC) [Entitic mass] 29.8 pg Normal 27.0-32.0 [facility] Comment on above: Performed By: #### L 100.0100 #### [facility] [address] [place], [address] MCHC (RBC) [Mass/Vol] 32.7 g/dL Normal 32-36 [facility] Comment on above: Performed By: #### L 100.0100 #### [facility] [address] [place], [address] MCV (RBC) [Entitic vol] 91.2 fL Normal 81-99 [facility] Comment on above: Performed By: #### L 100.0100 #### [facility] [address] [place], [address] Monocytes/100 WBC (Bld) 10.0 % Normal 0-10 [facility] Comment on above: Performed By: #### L 100.0100 #### [facility] [address] [place], [address] Neutrophils/100 WBC (Bld) 49.6 % Normal 47-70 [facility] Comment on above: Performed By: #### L 100.0100 #### [facility] [address] [place], [address] Nucleated RBC (Bld) [#/Vol] 0 10*3/uL Normal 0-5 [facility] Comment on above: Performed By: #### L 100.0100 #### [facility] [address] [place], [address] Platelet mean volume (Bld) [Entitic vol] 10.1 fL Normal 6.2-12.0 [facility] Comment on above: Performed By: #### L 100.0100 #### [facility] [address] [place], [address] Platelets (Bld) [#/Vol] 254 10*3/uL Normal 150-450 [facility] Comment on above: Performed By: #### L 100.0100 #### [facility] [address] [place], [address] RBC (Bld) [#/Vol] 4.19 10*6/uL Low 4.2-5.4 [facility] Comment on above: Performed By: #### L 100.0100 #### [facility] [address] [place], [address] RDW SD 40.0 fl Normal 35.1-43.9 [facility] Comment on above: Performed By: #### L 100.0100 #### [facility] [address] [place], [address] WBC (Bld) [#/Vol] 5.7 10*3/uL Normal 4.4-11.0 [facility] Comment on above: Performed By: #### L 100.0100 #### [facility] [address] [place], [address] Eosinophil percentageOrdered By: Alma Melton on 04-26-2025 Eosinophils/100 WBC (Bld) 2.8 % 0-5 [facility] Erythrocyte distribution wid th ratioOrdered By: Alma Melton on 04-26-2025 Erythrocyte distribution width (RBC) [Ratio] 11.9 % 11.6-14.6 [facility] Erythrocyte distribution wid th standard deviationOrdered By: Alma Melton on 04-26-2025 Erythrocyte distribution width (RBC) [Ratio] 40.0 fl 35.1-43.9 [facility] Hematocrit Auto (Bld) [Volum e fraction]Ordered By: Alma Melton on 04-26-2025 Hematocrit (Bld) [Volume fraction] 38.2 % 37-47 [facility] Hemoglobin measurementOrdere d By: Alma Melton on 04-26-2025 Hemoglobin (Bld) [Mass/Vol] 12.5 g/dL 12.0-15.0 [facility] Immature granulocytes/100 WB C Auto (Bld)Ordered By: Alma Melton on 04-26-2025 Immature granulocytes/100 WBC (Bld) 0.400 % 0.0-0.9 [facility] Comment on above: IG% - Immature Granu locytes (promyelocytes, myelocytes and metamyelocytes) > 1% indicates that a LEFT SHIFT is Present. MCV (mean corpuscular volume ) determinationOrdered By: Alma Melton on 04-26-2025 MCV (RBC) [Entitic vol] 91.2 fL 81-99 [facility] Mean corpuscular hemoglobin (MCH) determinationOrdered By: Alma Melton on 04-26-2025 MCH (RBC) [Entitic mass] 29.8 pg 27.0-32.0 [facility] Mean corpuscular hemoglobin concentration (MCHC) determinationOrdered By: Alma Melton on 04-26-2025 MCHC (RBC) [Mass/Vol] 32.7 g/dL 32-36 [facility] Mean platelet volume determi nationOrdered By: Alma Melton on 04-26-2025 Platelet mean volume (Bld) [Entitic vol] 10.1 fL 6.2-12.0 [facility] Monocyte percentageOrdered B y: Alma Melton on 04-26-2025 Monocytes/100 WBC (Bld) 10.0 % 0-10 [facility] Neutrophil percentageOrdered By: Alma Melton on 04-26-2025 Neutrophils/100 WBC (Bld) 49.6 % 47-70 [facility] Nucleated red blood cell per centageOrdered By: Alma Melton on 04-26-2025 Nucleated RBC/100 WBC (Bld) [Ratio] 0 % 0-5 [facility] Platelet countOrdered By: Whitney Melton on 04-26-2025 Platelets (Bld) [#/Vol] 254 10*3/uL 150-450 [facility] RBC Auto (Bld) [#/Vol]Ordere d By: Alma Melton on 04-26-2025 RBC (Bld) [#/Vol] 4.19 10*6/uL Low 4.2-5.4 [facility] Stool Occult Blood iFOBon STOB Negative Normal [facility] Comment on above: Performed By: #### L 100.0100 #### [facility] [address] [place], [address] Stool gastrointestinal hemog lobin detection by immunologic methodOrdered By: Alma Melton on 04-26-2025 Lower GI hemoglobin IA Ql (Stl) [facility] White blood cell (WBC) count Ordered By: Alma Melton on 04-26-2025 WBC (Bld) [#/Vol] 5.7 10*3/uL 4.4-11.0 [facility] Breast imaging reportOrdered By: Maday Mendez on 02-14-2025 Study report [facility] Imaging Services [address] [place], [place] [address] SCRN MAMM (CAD)W/MISTY BILAT MR#: [id number] Acct: [id number] Name: POLINA THOMSON Rep #: [id number] : 1965 F 59 From: Miladsy Mendez MD PCP: Dr. 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 FINDINGS: TISSUE DENSITY: The breasts are heterogeneously dense, which may obscure small masses. The mammogram demonstrates that the patient has dense breasts. Supplemental screening with whole breast ultrasound or MRI may be considered for further evaluation. Bilateral Breast Mammographic Findings: No significant masses, calcifications or other abnormalities are identified. BI/SCRN MAMM (CAD)W/MISTY BILAT IMPRESSION: There is no mammographic evidence of malignancy. OVERALL FINAL ASSESSMENT BI-RADS 1: NEGATIVE. RECOMMEND ANNUAL MAMMOGRAPHIC SCREENING. RECOMMENDATION: Routine annual follow-up in 1 Year A letter with findings and recommendations will be mailed to the patient. Reading Location: [id number] CC: NIKOLE Lucio; Dr. Willie Adams MD ~ Booster Operator: Signed [facility] Internal Medicine Office Vis itocarrie 02-14-2025 Internal Medicine Office Visit [facility] [address] [place] [address] [place] [address] OFFICE VISIT Date of Service: 02/14/25 MR#: [id number] Acct: [id number] Name: POLINA THOMSON Rep #: [id number] : 1965 Provider: Dr. Willie rae MD Age/Sex: 59/F Location: [facility] Status: Signed Intake Vital Signs 11/08/24 17:55 02/12/25 08:01 02/14/25 17:38 Height 5 ft 7 in 5 ft 7 in 5 ft 7 in Weight: 199 lb BMI 31.1 BP 110/70 Blood Pressure Location Lt brachial Position Sitting Respiration 16 Pulse 59 L Pulse Source Monitor Temp 97 F L Temp Source Temporal Pulse Oximetry (%) 97 Oxygen Delivery Method room air Intake Visit Reasons: 3 M FU Chief Complaint: Follow-up chronic conditions. Concerns. Supervisor Gear Repair Required: No Is patient in pain?: No Allergies perfume Allergy (Verified 02/14/25 17:27) throat swelling Medications ???Medication ???Instructions ???Recorded ???Confirmed ???Type ibuprofen 600 mg tablet 600 mg PO Q6H PRN PRN Pain Score 0 02/05/20 02/14/25 Rx 1-1010 #20 tabs mecobalamin (vitamin B12) 500 mcg 500 mcg PO .QD 09/08/24 02/14/25 History chewable tablet jfcsydqt-dxv-lxkqw ac 400 1 tab PO .QD 11/08/24 02/14/25 His tory mcg-calcium carb 500 mg-vit K1 20 mcg tablet (Women's 50 Plus Multivitamin) sennosides 8.6 mg capsule (senna) 8.6 mg PO QDAY PRN constipation 0 11/08/24 02/14/25 History sumatriptan succinate 25 mg tablet See Rx Instructions PO .COMPLEX 11/29/24 02/14/25 History (Imitrex) PRN migraine headache venlafaxine 75 mg capsule,extended 75 mg PO QHS 11/29/24 02/14/25 H istory release 24 hr vonoprazan 10 mg tablet (Voquezna) 10 mg PO QDAY #30 tabs 12/13/24 02/14/25 Rx misoprostol 200 mcg tablet 200 mcg PO .complex #2 tabs 02/14/25 Rx (Cytotec) magnesium 250 mg tablet 250 mg PO QHS 01/17/25 02/14/25 Hi story famotidine 40 mg tablet 40 mg PO BID eructation #60 tabs 0 01/23/25 02/14/25 Rx propranolol 60 mg capsule,24 60 mg PO QHS #60 caps 01/31/2510/10 Rx hr,extended release rosuvastatin 10 mg tablet 10 mg PO QDAY #90 tabs 02/14/25 Rx PFSH Medical History (Updated 02/14/25 @ 18:[address] Willie Adams MD) Aortic calcification Dermatitis Chronic abdominal pain Obesity (BMI 30.0-34.9) Bite from insect Leg cramps Wears glasses [...] syndrome Asthma Anemia Seasonal allergies Surgical History History of hysteroscopy H/O dilation and curettage H/O lithotripsy H/O prior ablation treatment History of appendectomy History of carpal tunnel surgery Family History (Updated 02/14/25 @ 17:29 by Callie Lawson MA) Mother Anxiety Depression [...] 3 current occupational status: employed current occupation: [employer] current occupational exposures/hazards: No pets [...] Reproductive History Menstrual Date of menopause: 12/14/16 Pre (more content not included)... Normal [facility] SCRN MAMM (CAD)W/MISTY BILATo n 02-13-2025 SCRN MAMM (CAD)W/MISTY BILAT [facility] Imaging Services [address] [place], [place] [address] SCRN MAMM (CAD)W/MISTY BILAT MR#: [id number] Acct: [id number] Name: POLINA THOMSON Rep #: [id number] : 1965 F 59 From: Maday Mendez MD PCP: Dr. 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 FINDINGS: TISSUE DENSITY: The breasts are heterogeneously dense, which may obscure small masses. The mammogram demonstrates that the patient has dense breasts. Supplemental screening with whole breast ultrasound or MRI may be considered for further evaluation. Bilateral Breast Mammographic Findings: No significant masses, calcifications or other abnormalities are identified. BI/SCRN MAMM (CAD)W/MISTY BILAT IMPRESSION: There is no mammographic evidence of malignancy. OVERALL FINAL ASSESSMENT BI-RADS 1: NEGATIVE. RECOMMEND ANNUAL MAMMOGRAPHIC SCREENING. RECOMMENDATION: Routine annual follow-up in 1 Year A letter with findings and recommendations will be mailed to the patient. Reading Location: [id number] CC: NIKOLE Lucio; Dr. Willie Adams MD Booster Operator: Signed Normal [facility] [employer] Office Visit Reporton 02-12-2025 [employer] Office Visit Report [facility] [address], [address] [place] [address] OFFICE VISIT Date of Service: 02/12/25 MR#: [id number] Acct: [id number] Name: POLINA THOMSON Rep #: [id number] : 1965 Provider: Dr. Gayatri sol MD Age/Sex: 59/F Location: [facility] Status: Signed Intake Vital Signs 01/12/25 14:06 01/30/25 12:39 02/12/25 07:59 02/12/25 08:01 Height 5 ft 7 in 5 ft 7 in 5 ft 7 in 5 ft 7 in Weight: 200 lb 4 oz BMI 31.4 BP 123/71 H Intake Visit Reasons: 2 wk D C hysteroscopy Supervisor Gear Repair Required: No Is patient in pain?: No Feel stressed/tense/nervous /anxious/difficulty sleeping: not at all Allergies perfume Allergy (Verified 02/12/25 07:59) throat swelling Medications ???Medication ???Instructions ???Recorded ???Confirmed ???Type ibuprofen 600 mg tablet 600 mg PO Q6H PRN PRN Pain Score 0 02/05/20 02/12/25 Rx 1-05/25 #20 tabs mecobalamin (vitamin B12) 500 mcg 500 mcg PO .QD 09/08/24 02/12/25 History chewable tablet xewnymue-rsg-qdaek ac 400 1 tab PO .QD 11/08/24 [...] hr,extended release Patient : No : No PFSH Medical History Bite from insect Leg cramps [...] 3 current occupational status: employed current occupation: [employer] current occupational exposures/hazards: No pets [...] living c (more content not included)... Normal [facility] Discharge Instructionon 01-14 Discharge Instruction [facility] Medical Records Department [address] [place] [address] Instructions for Home/Discharge Instructions 01/30/25 1635 MR#: [id number] Acct: [id number] Name: POLINA THOMSON Rep #: [id number] : 1965 59 From: Gayatri Weinstein MD PCP: Dr. Willie Adams MD Status:REG SDC Discharge Instructions Diet Discharge Diet: No restrictions [...] Up With: Gayatri Weinstein MD When: Call [phone] to schedule appointment. Test Results: Test results from this visit will be discussed in further detail at your follow-up appointment, if applicable. Discharge Plan Admission Attending Provider: Gayatri Weinstein Primary Care Provider: Willie Adams Instructions Print Language: Turkish Discharge Orders/Prescriptions Prescriptions: No Action Women's 50 [...] can be placed): Home, Self Care 01/30/25 8040 Gayatri Weinsteni MD CC: Dr. Willie Adams MD Signed [facility] MR/POSTOP.nAita 06-17-2025 MR/POSTOP.ANE [facility] Medical Records Department [address] [place] [address] Anesthesia Postop Eval I 01/30/25 1537 MR#: [id number] Acct: [id number] Name: POLINA THOMSON Rep #: [id number] : 1965 59 From: Lakhwinder Perez CRNA PCP: Dr. Willie Adams MD Status:[facility] Y Race: C Location: [place] [address] Anesthesia: Postop Eval I Current Vital Signs Temperature: 97.2 F Pulse Rate: 54 Blood Pressure: 108/56 Respiratory Rate: 16 Pulse Ox: 97 Assessment Airway patent: Yes Spontaneous unlabored respirations: Yes nausea: No Vomiting: No Anesthesia Complication: No Fluid Hydration Crystalloid volume administer (ml): 900 Total IV fluid infused: 900 Progress Note Anesthesia document: Postop Eval 1 completed: Yes 01/30/251536 Date Lakhwinder Perez PUPPET MASTER Cosigner Signature: Date CC: Signed [facility] MR/GTAPBOIC3ub 01-30-2025 [facility] Medical Records Department [address] [place] [address] Anesthesia Postop Eval II 01/30/25 1839 MR#: [id number] Acct: [id number] Name: POLINA THOMSON Rep #: [id number] : 1965 59 From: Bharat Atwood MD PCP: Dr. Willie Adams MD Status:JULIO [facility] Y Race: C Location: [facility] Anesthesia Postop Eval I Sum Postop Eval Completion status Anesthesia document: Postop Eval 1 completed: Yes Anesthesia Postop Eval I Summary Anesthesia Postop Eval I Summary: Anesthesia Postop Eval I: Assessment Summary Airway patent Yes 01/30/25 15:37 PUPPET MASTER.TNES Spontaneous unlabored Yes 01/30/25 15:37 PUPPET MASTER.TNES respirations Mental status nausea No 01/30/25 15:37 PUPPET MASTER.TNES Vomiting No 01/30/25 15:37 PUPPET MASTER.TNES Anesthesia Postop Eval I: Fluid Summary Crystalloid volume administer 900 01/30/25 15:37 PUPPET MASTER.TNES (ml) Colloids volume administered ( ml) Blood Product volume administered (ml) Total IV fluid infused 900 01/30/25 15:37 PUPPET MASTER.TNES Anesthesia Postop Eval I: Summary Notes Anesthesia Complication No 01/30/25 15:37 PUPPET MASTER.TNES Anesthesia Complication Comment: Post-operative progress note Anesthesia: Postop Eval II Evaluation Mental status: Awake Pain Level: 0 nausea: No Vomiting: No Complications Anesthesia Complication: No 01/30/25 1839 Date Bharat Atwood MD Cosigner Signature: Date CC: Signed [facility] Operative Reporton 5 Operative Report [facility] Medical Records Department [address] [place] [address] Operative Report 01/30/25 1549 MR#: [id number] Acct: [id number] Name: POLINA THOMSON Rep #: [id number] : 1965 59 From: Gayatri Weinstein MD PCP: Dr. Willie Adams MD Status:[facility] Location: [place] [address] Problems Associated Problem List Diagnoses (1) Post-menopausal bleeding: Multi Select Codes Urinary/Genital Urinary/Genital CPT Codes: 21477 Hysteroscopy,EMC, Polypectomy Operative Report (Standard) Operative Information Date of Procedure: 01/30/25 Pre-Operative Diagnosis: see problem list comments Post-Operative Diagnosis: same Surgery/Procedure Performed: dilation and curettage hysteroscopy sustainable development policy analyst: No Type of Anesthesia: IV Sedation and [...] MD; Dr. Gayatri Weinstein MD Signed [facility] Surgery Specimen Level Mateo 01-30-2025 Surgery Specimen Level IV ---- Patient Age/Sex Location Account Attending Physician ---- BERTOPOLINA DIAZ 59/F [facility] [id number] Dr. Gayatri Weinstein MD ---- Specimen: [id number] Received: 01/30/25 Status: AKIN Arvizu Num: [id number] Spec Type: ENDOM BX/C Subm Dr: Dr. [...] block and entirely submitted in 1 cassette. NM 01/31/2025 CPT:77275 ---- Patient Age/Sex Location Account Attending Physician ---- POLINA THOMSON 59/F [facility] [id number] Dr. Gayatri Weinstein MD ---- Signed (signature on file) Dr. Martha Smith MD 02/12/25 0938 ---- Normal [facility] Comment on above: Performed By: #### P SUIV ####[facility] [address] [place], [address] Abdomen/Pelvis WITH Contrast on 01-23-2025 Abdomen/Pelvis WITH Contrast [facility] Imaging Services [address] [place] [address] Abdomen/Pelvis WITH Contrast MR#: [id number] Acct: [id number] Name: POLINA THOMSON Rep #: [id number] : 1965 F 59 From: Milton butler MD PCP: Dr. Willie Adams MD Status: REG CLI Study: Abdomen/Pelvis WITH Contrast Date of Exam: 06/09 Exam# [id number] Ordering Dr: Alma Melton PROCEDURE: ABDOMEN/PELVIS WITH [...] extrarenal pelves. Mild diffuse spondylosis. Reading Location: [place] [address] CC: Dr. Willie Adams MD; LETICIA Ham Booster Operator: Signed [facility] 12 Lead EKGon 01-22-2025 12 Lead EKG [facility] Cardiovascular Services [address] [place] [address] 12 Lead EKG 01/22/25 0729 MR#: [id number] Acct: [id number] Name: POLINA THOMSON Rep #: [id number] : 1965 59 From: Jamari Michael MD Attending Dr: Dr. Gayatri Weinstein MD Status: PRE HIC Ordering Dr: Gayatri Weinstein MD Date: 01/22/25 Location: [facility] Sex: F C Admitted: Test Reason : [...] ECGs available Confirmed by Jamari Michael ([id number]), editorial specialist KELECHI MOSHER ([id number]) on 01/22/2025 10:43:59 AM Referred By: Gayatri Weinstein Confirmed By: Jamari Michael 01/22/25 1044 Date Jamari Michael MD CC: Dr. Willie Adams MD; Dr. Gayatri Weinstein MD Signed [facility] Electrocardiogram reportOrde red By: Jamari Michael on 01-22-2025 EKG study [facility] Cardiovascular Services [address] [place] [address] 12 Lead EKG 01/22/25 0729 MR#: [id number] Acct: [id number] Name: POLINA THOMSON Rep #:[id number] : 1965 59 From: Jamari graec MD Attending Dr: Dr. Gayatri Weinstein MD Status: PRE [facility] Ordering Dr: Gayatri Weinstein MD Chris e: 01/22/25 Location: [facility] Sex: F C Admitted: Test Reason : PREOP Blood Pressure : */* mmHG Vent. Rate : 55 BPM Atrial Rate : 55 BPM P-R Int : 166 ms QRS Dur : 102 ms QT Int : 422 ms P-R-T Axes : 67 55 41 degrees QTcB Int : 403 ms Sinus bradycardia Otherwise normal ECG No previous ECGs available Confirmed by Jamari Michael ([id number]), editorial specialist KELECHI MOSHER ([id number]) on 01/22/2025 10:43:59 AM Referred By: Gayatri Weinstein Confirmed By: Jamari Michael 01/22/25 1044 Date _ Jamari Michael MD CC: Dr. Willie Adams MD; Dr. Gayatri Weinstein MD ~ Signed [facility] Work Phone: Anion gap in Serum or Plasma Ordered By: Gayatri Weinstein on 01-17-2025 Anion gap [Moles/Vol] 11 mmol/L 12-28 [facility] BUN/creatinine ratioOrdered By: Gayatri Weinstein on 01-17-2025 Urea nitrogen/Creatinine [Mass ratio] 11.7 mg/mg 06-04 [facility] Basic Metabolic Profile (BMP )on 01-17-2025 BUN/CRE 11.7 RATIO Normal 06-04 [facility] Comment on above: Performed By: #### B TS, Z456.5624, D089.2268 #### [facility] [address] [place], [place], [address] Calcium [Mass/Vol] 9.0 mg/dL Normal 7.6-11.0 [facility] Comment on above: Performed By: #### B TS, L500.2500, L100.0500 #### [facility] [address] [place], [address] Chloride [Moles/Vol] 104 mmol/L Normal 98-108 [facility] Comment on above: Performed By: #### B TS, L500.2500, L100.0500 #### [facility] [address] [place], [address] CO2 [Moles/Vol] 24.1 mmol/L Normal 21.0-32.0 [facility] Comment on above: Performed By: #### Ayan TS, L500.2500, L100.0500 #### [facility] [address] [place], [address] Creatinine [Mass/Vol] 1.15 mg/dL Normal 0.70-1.20 [facility] Comment on above: Performed By: #### Ayan TS, L500.2500, L100.0500 #### [facility] [address] [place], [address] GAP 11 Normal 5-15 [facility] Comment on above: Performed By: #### Ayan TS, L500.2500, L100.0500 #### [facility] [address] [place], [address] GFR/1.73 sq M.predicted among non-blacks MDRD (S/P/Bld) [Vol rate/Area] 56 mL/min/{1.73_m2} Low >60 [facility] Comment on above: Result Comment: mL/m in/1.73m2 CKD-EPI Creatinine Equation (2020) Performed By: #### B TS, L500.2500, L100.0500 #### [facility] [address] [place], [address] Glucose [Mass/Vol] 97 mg/dL Normal 70-99 [facility] Comment on above: Performed By: #### Ayan TS, L500.2500, L100.0500 #### [facility] [address] [place], [address] Potassium [Moles/Vol] 4.1 mmol/L Normal 3.3-5.1 [facility] Comment on above: Performed By: #### Ayan TS, L500.2500, L100.0500 #### [facility] [address] [place], [address] Sodium [Moles/Vol] 139 mmol/L Normal 133-145 [facility] Comment on above: Performed By: #### Ayan TS, L500.2500, L100.0500 #### [facility] [address] [place], [address] Urea nitrogen [Mass/Vol] 13 mg/dL Normal 4-19 [facility] Comment on above: Performed By: #### Ayan TS, L500.2500, L100.0500 #### [facility] [address] [place], [address] CBC-Complete Blood Cnt No ffon 01-17-2025 Erythrocyte distribution width (RBC) [Ratio] 12.0 % Normal 11.6-14.6 [facility] Comment on above: Performed By: #### Ayan TS, L500.2500, L100.0500 #### [facility] [address] [place], [address] Hematocrit (Bld) [Volume fraction] 39.9 % Normal 37-47 [facility] Comment on above: Performed By: #### Ayan TS, L500.2500, L100.0500 #### [facility] [address] [place], [address] Hemoglobin (Bld) [Mass/Vol] 13.5 g/dL Normal 12.0-15.0 [facility] Comment on above: Performed By: #### B TS, L500.2500, L100.0500 #### [facility] [address] [place], [address] MCH (RBC) [Entitic mass] 30.7 pg Normal 27.0-32.0 [facility] Comment on above: Performed By: #### B TS, L500.2500, L100.0500 #### [facility] [address] [place], [address] MCHC (RBC) [Mass/Vol] 33.8 g/dL Normal 32-36 [facility] Comment on above: Performed By: #### B TS, L500.2500, L100.0500 #### [facility] [address] [place], [address] MCV (RBC) [Entitic vol] 90.7 fL Normal 81-99 [facility] Comment on above: Performed By: #### Ayan TS, L500.2500, L100.0500 #### [facility] [address] [place], [address] Platelet mean volume (Bld) [Entitic vol] 10.8 fL Normal 6.2-12.0 [facility] Comment on above: Performed By: #### Ayan TS, L500.2500, L100.0500 #### [facility] [address] [place], [address] Platelets (Bld) [#/Vol] 241 10*3/uL Normal 150-450 [facility] Comment on above: Performed By: #### B TS, L500.2500, L100.0500 #### [facility] [address] [place], [address] RBC (Bld) [#/Vol] 4.40 10*6/uL Normal 4.2-5.4 [facility] Comment on above: Performed By: #### Ayan TS, L500.2500, L100.0500 #### [facility] [address] [place], [address] RDW SD 40.0 fl Normal 35.1-43.9 [facility] Comment on above: Performed By: #### B TS, L500.2500, L100.0500 #### [facility] [address] [place], [address] WBC (Bld) [#/Vol] 5.3 10*3/uL Normal 4.4-11.0 [facility] Comment on above: Performed By: #### B TS, L500.2500, L100.0500 #### [facility] [address] [place], [address] Carbon dioxide, total [Moles /volume] in Central venous bloodOrdered By: Gayatri Weinstein on 01-17-2025 CO2 [Moles/Vol] 24.1 mmol/L 21.0-32.0 [facility] Chloride assayOrdered By: Rosalina Weinstein on 01-17-2025 Chloride [Moles/Vol] 104 mmol/L 98-108 [facility] Erythrocyte distribution wid th ratioOrdered By: Gayatri Weinstein on 01-17-2025 Erythrocyte distribution width (RBC) [Ratio] 12.0 % 11.6-14.6 [facility] Erythrocyte distribution wid th standard deviationOrdered By: Gayatri Weinstein on 01-17-2025 Erythrocyte distribution width (RBC) [Ratio] 40.0 fl 35.1-43.9 [facility] Glomerular filtration rate ( GFR) estimation/1.73 sq m using serum, plasma, or whole bOrdered By: Gayatri Weinstein on 01-17-2025 GFR/1.73 sq M.predicted among non-blacks MDRD (S/P/Bld) [Vol rate/Area] 56 mL/min/{1.73_m2} Low >60 [facility] Comment on above: mL/min/1.73m2 CKD-EP I Creatinine Equation (2020) Hematocrit Auto (Bld) [Volum e fraction]Ordered By: Gayatri Weinstein on 01-17-2025 Hematocrit (Bld) [Volume fraction] 39.9 % 37-47 [facility] Hemoglobin measurementOrdere d By: Gayatri Weinstein on 01-17-2025 Hemoglobin (Bld) [Mass/Vol] 13.5 g/dL 12.0-15.0 [facility] MCV (mean corpuscular volume ) determinationOrdered By: Gayatri Weinstein on 01-17-2025 MCV (RBC) [Entitic vol] 90.7 fL 81-99 [facility] Mean corpuscular hemoglobin (MCH) determinationOrdered By: Gayatri Weinstein on 01-17-2025 MCH (RBC) [Entitic mass] 30.7 pg 27.0-32.0 [facility] Mean corpuscular hemoglobin concentration (MCHC) determinationOrdered By: Gayatri Weinstein on 01-17-2025 MCHC (RBC) [Mass/Vol] 33.8 g/dL 32-36 [facility] Mean platelet volume determi nationOrdered By: Gayatri Weinstein on 01-17-2025 Platelet mean volume (Bld) [Entitic vol] 10.8 fL 6.2-12.0 [facility] Platelet countOrdered By: Rosalina Weinstein on 01-17-2025 Platelets (Bld) [#/Vol] 241 10*3/uL 150-450 [facility] Potassium measurement (mass/ volume)Ordered By: Gayatri Weinstein on 01-17-2025 Potassium (Unsp spec) [Mass/Vol] 4.1 mmol/L 3.3-5.1 [facility] RBC Auto (Bld) [#/Vol]Ordere d By: Gayatri Weinstein on 01-17-2025 RBC (Bld) [#/Vol] 4.40 10*6/uL 4.2-5.4 [facility] Serum creatinine measurement (mass/volume)Ordered By: Gayatri Weinstein on 01-17-2025 Creatinine [Mass/Vol] 1.15 mg/dL 0.70-1.20 [facility] Serum glucose measurement (m ass/volume)Ordered By: Gayatri Weinstein on 01-17-2025 Glucose [Mass/Vol] 97 mg/dL 70-99 [facility] Serum or plasma calcium carlito urement (mass/volume)Ordered By: Gayatri Weinstein on 01-17-2025 Calcium [Mass/Vol] 9.0 mg/dL 7.6-11.0 [facility] Serum or plasma urea nitroge n measurement (mass/volume)Ordered By: Gayatri Weinstein on 01-17-2025 Urea nitrogen [Mass/Vol] 13 mg/dL 4-19 [facility] Sodium levelOrdered By: Adiel Weinstein on 01-17-2025 Sodium [Moles/Vol] 139 mmol/L 133-145 [facility] Type AND Screenon 01-17-2025 ABO and Rh group Nom (Bld) Blood group B Rh(D) negative Normal [facility] Comment on above: Order Comment: Reaso n for Laboratory Test PRE OPD C Performed By: #### B TS, L500.2500, L100.0500 ####[facility] [address] [place], [place], [address] White blood cell (WBC) count Ordered By: Gayatri Weinstein on 01-17-2025 WBC (Bld) [#/Vol] 5.3 10*3/uL 4.4-11.0 [facility] [employer] Office Visit Reporton 01-12-2025 [employer] Office Visit Report [facility] [address], [address] [place] [address] OFFICE VISIT Date of Service: 01/12/25 MR#: [id number] Acct: [id number] Name: POLINA THOMSON Rep #: [id number] : 1965 Provider: Dr. 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 Required: No Is patient in pain?: Yes (on and off pain, ) Allergies perfume Allergy (Verified 01/12/25 14:07) throat swelling Medications ???Medication ???Instructions ???Recorded ???Confirmed ???Type ibuprofen 600 mg tablet 600 mg PO Q6H PRN PRN Pain Score 0 02/05/20 01/12/25 Rx 1-10 #20 tabs mecobalamin (vitamin B12) 500 mcg mcg PO 09/08/24 01/12/25 History chewable tablet propranolol 60 mg capsule,24 60 mg PO QHS 09/08/24 01/12/25 His tory hr,extended release ydfgqajz-cbv-ngvza ac 400 tab PO 11/08/24 01/12/25 History [...] 3 current occupational status: employed current occupation: [employer] current occupational exposures/hazards: No pets [...] GA/Weeks Outc (more content not included)... Normal [facility] Gastroenterology Visit Repor ton 12-28-2024 Gastroenterology Visit Report [facility] [address] [place] [address] OFFICE VISIT Date of Service: 12/28/24 MR#: [id number] Acct: [id number] Name: POLINA THOMSON Rep #: [id number] : 1965 Provider: LETICIA Ham Age/Sex: 59/F Location: [facility] Status: Signed Intake Vital Signs 11/29/24 05:40 [...] QHS 09/08/24 11/29/24 His tory hr,extended release lmpaknaf-xgw-nwfbz ac 400 tab PO 11/08/24 11/23/24 History mcg-calcium carb 500 mg-vit K1 20 mcg tablet (Women's 50 Plus Multivitamin) sennosides 8.6 mg capsule (senna) 8.6 mg PO QDAY PRN constipation 0 11/08/24 12/28/24 History vit C 180 mg-D3 10 mcg-zinc 5.5 cap PO 11/08/24 12/28/24 History im-wuxilo-gldnehg-ging er-herb capsule (Immune Support (vit c, d [...] and feels that is helping with indigestion. [facility] Medical History (Updated 12/28/24 @ [...] 3 current occupational status: employed current occupation: [employer] current occupational exposures/hazards: No pets [...] of taki (more content not included)... Normal [facility] Gastroenterology Visit Repor ton 12-13-2024 Gastroenterology Visit Report [facility]astroenter[facility] [address] [place] [address] OFFICE VISIT Date of Service: 12/13/24 MR#: [id number] Acct: [id number] Name: POLINA THOMSON Rep #: [id number] : 1965 Provider: LETICIA Ham Age/Sex: 59/F Location: [facility] Status: Signed Intake Vital Signs 02/15/23 14:49 [...] indigestion, gas and bloating after most meal. [facility] Medical History (Updated 12/13/24 @ [...] 3 current occupational status: employed current occupation: [employer] current occupational exposures/hazards: No pets and animals: [...] the office today for f/u. [facility]GI established 2.5.25 with complaints of GI issues over many years. Worsening symptoms over the past few months with abd distention, early satiety, n/v, heartburn and constipation. Endorses weight gain. Taking senna daily for constipation x1 year. Last EGD and colonoscopy in 2019 with normal findings. *Trial Ibsrela, EGD, GES GES .; normal EGD .; Normal esophagus. - Normal [...] exertion; No (more content not included)... Normal [facility] EGD Reporton 11-29-2024 EGD Report [facility] Medical Records Department [address] [place] [address] EGD Report MR#: [id number] Acct: [id number] Name: POLINA THOMSON Rep #: [id number] : 1965 59 From: Adria Cisse DO PCP: Dr. Willie Adams MD Status:REG [facility] Patient Name: Polina Thomson Procedure Date: 11/29/2024 [...] pathology results. Procedure Code(s): --- Professional --- 94614, Small intestinal endoscopy, enteroscopy beyond second portion of duodenum, not including ileum; with biopsy, single or multiple CPT copyright 2021 [employer]. All rights reserved. The codes documented in this report are preliminary and upon internship review may be revised to meet current compliance requirements. Adria Cisse DO 11/29/2024 7:04:06 AM This report has been signed electronically. Number of Addenda: 0 Note Initiated On: 11/29/2024 6:13 AM 11/29/24 0704 Date Adria Friend DO Cosigner Signature: Date (if indicated) CC: Dr. Willie Adams MD; Adria Cisse DO Date Dictated: 11/29/24612 Date Transcribed: Booster Operator: RF Signed [facility] MR/POSTOP.ANEon 11-29-2024 MR/POSTOP.[facility] Medical Records Department [address] [place] [address] Anesthesia Postop Eval I 11/29/24707 MR#: [id number] Acct: [id number] Name: POLINA THOMSON Rep #: [id number] : 1965 59 From: Lele Keys PCP: Dr. Willie Adams MD Status:REG [facility] Y Race: C Location: [place] [address] Anesthesia: Postop Eval I Current Vital Signs [...] document: Postop Eval 1 completed: Yes 11/29/24708 Date Lele Wen Signature: Date CC: Signed [facility] MR/EBQMAZHT2ra 11-29-2024 MR/POSTOPAN2 [facility] Medical Records Department [address] [place] [address] Anesthesia Postop Eval II 11/29/24729 MR#: [id number] Acct: [id number] Name: POLINA THOMSON Rep #: [id number] : 1965 59 From: Michael Grier MD PCP: Dr. Willie Adams MD Status:REG SDC Y Race: C Location: [address] Anesthesia Postop Eval I Sum Postop [...] Pain Level: 0 nausea: No Vomiting: No 11/29/2430 Date Michael Grier MD Cosigner Signature: Date CC: Signed Normal [facility] Surgery Specimen Level Mateo 11-29-2024 Surgery Specimen Level IV ---- Patient Age/Sex Location Account Attending Physician ---- POLINA THOMSON 59/F EN [id number] Adria Cisse DO ---- Specimen: [id number] Received: 11/29/24 Status: AKIN uLh Num: [id number] Spec Type: EGD BIOPSY Subm Dr: Adria [...] aggregate. Submitted in toto in A1. SMB 12/13/2024 CPT:71385 ---- Patient Age/Sex Location Account Attending Physician ---- POLINA THOMSON 59/F EN [id number] Adria Cisse, DO ---- Signed (signature on file) Dr. Martha Smith MD 12/13/24 0821 ---- Normal [facility] Comment on above: Performed By: #### L 100.0100 #### [facility] [address] [place], [address] Laboratory - Chemistry and C hemistry - challengeOrdered By: Sharon Whiting on 11-23-2024 HCG ( test) Ql (U) Negative [facility] [employer] Office Visit Reporton 11-23-2024 [employer] Office Visit Report [facility]'s [address], [address] [place] [address] OFFICE VISIT Date of Service: 11/23/24 MR#: [id number] Acct: [id number] Name: POLINA THOMSON Rep #: [id number] : 1965 Provider: NIKOLE gleason Age/Sex: 59/F Location: [facility] Status: Signed Intake Vital Signs 11/09/24 08:06 11/23/24 15:14 11/23/24 15:14 Height 5 ft 7 in 5 ft 7 in 5 ft 7 in Weight: 196 lb 6 oz 192 lb BMI 30.7 30.0 BP 122/80 H 133/81 H 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 Visit 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: 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 Supervisor Gear Repair Required: No Is patient in pain?: No [...] QDAY 09/08/24 11/23/24 Hi story hr,extended release tcvsuvvp-bsp-yjgjm ac 400 tab PO 11/08/24 11/23/24 History [...] mcg-zinc 5.5 cap PO 11/08/24 11/23/24 History qn-nbsvon-cggrjiv-ging er-herb capsule (Immune Support (vit c, d and zinc)) PFSH PFSH Medical History Blood glucose elevated Hyperlipidemia Anxiety [...] 3 current occupational status: employed 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 Normal [facility] Surgery Specimen Level Mateo 11-23-2024 Surgery Specimen Level IV ---- Patient Age/Sex Location Account Attending Physician ---- POLINA THOMSON TANIA 59/F [facility] [id number] NIKOLE Pereira ---- Specimen: [id number] Received: 11/23/24 Status: AKIN Arvizu Num: [id number] Spec Type: ILIANA LOCKE/C Kapil Dr: NIKOLE Pereira HEADER OPERATION: Endometrial [...] in aggregate. Submitted in toto in A1. [facility] 12/01/2024 CPT:51589 ---- Patient Age/Sex Location Account Attending Physician ---- POLINA THOMSON 59/F [facility] [id number] Sharon Henok, ROTARY 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-C ---- Signed (signature on file) Dr. Martha Smith MD 12/01/24 1716 ---- Normal [facility] Comment on above: Performed By: #### L 100.0100 #### [facility] [address] [place], [address] PAP IG HPV APTIMA 16/18,45on 11-13-2024 ADEQ Comment Normal . [facility] Comment on above: Order Comment: Korey judge Comment: [id number] Comment: Source.............CervixSpecimen Comment: Other..............Post MenopausalSpecimen Comment: No. of containers..01 ThinPrep Vial Result Comment: Sati sfactory for evaluation. Endocervical and/or squamous metaplastic cells (endocervical component) are present. Performed By: #### L 7400.0280 ####[facility] [address] [place], [place], [id number] COMM . Normal . [facility] Comment on above: Order Comment: Specconcepcion judge Comment: [id number] Comment: Source.............CervixSpecimen Comment: Other..............Post MenopausalSpecimen Comment: No. of containers..01 ThinPrep Vial Performed By: #### L 7400.0280 ####[facility] [address] [place], [place], [id number] COMMENT Comment Normal . [facility] Comment on above: Order Comment: Speci men Comment: [id number] Comment: Source.............CervixSpecimen Comment: Other..............Post MenopausalSpecimen Comment: No. of containers..01 ThinPrep Vial Result Comment: This liquid based ThinPrep(R) pap test was screened with the use of an image guided system. Performed By: #### L 7400.0280 ####[facility] [address] [place], [place], [id number] DIAG Comment Normal . [facility] Comment on above: Order Comment: Speci men Comment: [id number] Comment: Source.............CervixSpecimen Comment: Other..............Post MenopausalSpecimen Comment: No. of containers..01 ThinPrep Vial Result Comment: NEGA TIVE FOR INTRAEPITHELIAL LESION OR MALIGNANCY. Performed By: #### L 7400.0280 ####[facility] [address] [place], [place], [address] HPV APTIMA, HR Negative Normal Negative [facility] Comment on above: Order Comment: Speci men Comment: [id number] Comment: Source.............CervixSpecimen Comment: Other..............Post MenopausalSpecimen Comment: No. of containers..01 ThinPrep Vial Result Comment: This nucleic acid amplification test detects fourteen high- risk HPV types (16,18,31,33,35,39,45,51,52,56,58,59,66,68) without differentiation. Performed By: #### L 7400.0280 ####[facility] [address] [place], [place], [address] HPV Anum Rfx Comment Normal . [facility] Comment on above: Order Comment: Speci men Comment: [id number] Comment: Source.............CervixSpecimen Comment: Other..............Post MenopausalSpecimen Comment: No. of containers..01 ThinPrep Vial Result Comment: Crit eria not met, HPV Genotype not performed. Performed at: - [address] [id number] Bookie: Denisse Cheney MD, Phone: [phone] Performed at: = - [facility] [id number] Bookie: Denisse Cheney MD, Phone: [phone] Performed By: #### L 7400.0280 ####[facility] [address] [place], [address] PAPSMR Comment Normal . [facility] Comment on above: Order Comment: Speci men Comment: [id number] Comment: Source.............CervixSpecimen Comment: Other..............Post MenopausalSpecimen Comment: No. [...] do occur. Performed By: #### L 7400.0280 ####[facility] [address] [place], [address] PERFORM Comment Normal . [facility] Comment on above: Order Comment: Speci men Comment: [id number] Comment: Source.............CervixSpecimen Comment: Other..............Post MenopausalSpecimen Comment: No. of containers..01 ThinPrep Vial Result Comment: Patricia Hagen, Orthotic And Prosthetic Technician (ASCP) Performed By: #### L 7400.0280 ####[facility] [address] [place], [address] Pelvic w/ Transvaginalon Pelvic w/ Transvaginal [facility] [address] [place], [place] [id number] Pelvic w/ Transvaginal MR#: [id number] Acct: [id number] Name: POLINA THOMSON Rep #: [id number] : 1965 F 59 From: Ariel moody MD PCP: Dr. Willie Adams MD Status: REG CLI Study: Pelvic w/ Transvaginal Date of Exam: 11/13/24 Exam# [id number] Ordering Dr: Fadia Lucio ROTARY 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-C PROCEDURE: PELVIC W/ TRANSVAGINAL REASON FOR EXAM: [...] The ovaries were not visualized. Reading Location: [facility] CC: NIKOLE Lucio; Dr. Willie Adams MD Booster Operator: Signed Normal [facility] Hemoglobin A1con 11-10-2024 HbA1c (Bld) [Mass fraction] 5.6 % Low <=5.6 [facility] Comment on above: Performed By: #### L 100.0100 #### [facility] [address] [place], [address] Absolute lymphocyte countOrd ered By: Willie Adams on 11-09-2024 Lymphocytes Auto (Unsp spec) [#/Vol] 1.89 10*3/uL 0.83-4.51 [facility] Absolute neutrophil countOrd ered By: josejanesvillefransisca Adams on 11-09-2024 Neutrophils (Bld) [#/Vol] 3.1 10*3/uL 2.0-7.7 [facility] Anion gap in Serum or Plasma Ordered By: Willie Adams on 11-09-2024 Anion gap [Moles/Vol] 11 mmol/L 5-15 [facility] Automated lymphocyte count a s percentage of total leukocytesOrdered By: Willie Adams on 11-09-2024 Lymphocytes/100 WBC Auto (Unsp spec) 33.5 % 19-41 [facility] BUN/creatinine ratioOrdered By: Willie Adams on 11-09-2024 Urea nitrogen/Creatinine [Mass ratio] 14.8 mg/mg 10-20 [facility] Basophil percentageOrdered B y: Willie Adams on 11-09-2024 Basophils/100 WBC (Bld) 1.2 % High 0-1 [facility] Bilirubin, totalOrdered By: Willie Adams on 11-09-2024 Bilirubin [Mass/Vol] 0.35 mg/dL 0.00-1.30 [facility] CBC W/Diff, Automatedon -2 Absolute Lymph 1.89 X10 3/uL Normal 0.83-4.51 [facility] Comment on above: Performed By: #### L 100.0100 #### [facility] [address] [place], [address] Absolute Neut 3.1 X10 3/uL Normal 2.0-7.7 [facility] Comment on above: Performed By: #### L 100.0100 #### [facility] [address] [place], [address] Basophils/100 WBC (Bld) 1.2 % High 0-1 [facility] Comment on above: Performed By: #### L 100.0100 #### [facility] [address] [place], [address] Eosinophils/100 WBC (Bld) 2.5 % Normal 0-5 [facility] Comment on above: Performed By: #### L 100.0100 #### [facility] [address] [place], [address] Erythrocyte distribution width (RBC) [Ratio] 12.1 % Normal 11.6-14.6 [facility] Comment on above: Performed By: #### L 100.0100 #### [facility] [address] [place], [address] Hematocrit (Bld) [Volume fraction] 41.8 % Normal 37-47 [facility] Comment on above: Performed By: #### L 100.0100 #### [facility] [address] [place], [address] Hemoglobin (Bld) [Mass/Vol] 13.9 g/dL Normal 12.0-15.0 [facility] Comment on above: Performed By: #### L 100.0100 #### [facility] [address] [place], [address] IG% 0.200 Normal 0.0-0.9 [facility] Comment on above: Result Comment: IG% - Immature Granulocytes (promyelocytes, myelocytes and metamyelocytes) > 1% indicates that a LEFT SHIFT is Present. Performed By: #### L 100.0100 #### [facility] [address] [place], [address] Lymphocytes/100 WBC (Bld) 33.5 % Normal 19-41 [facility] Comment on above: Performed By: #### L 100.0100 #### [facility] [address] [place], [address] MCH (RBC) [Entitic mass] 30.5 pg Normal 27.0-32.0 [facility] Comment on above: Performed By: #### L 100.0100 #### [facility] [address] [place], [address] MCHC (RBC) [Mass/Vol] 33.3 g/dL Normal 32-36 [facility] Comment on above: Performed By: #### L 100.0100 #### [facility] [address] [place], [address] MCV (RBC) [Entitic vol] 91.9 fL Normal 81-99 [facility] Comment on above: Performed By: #### L 100.0100 #### [facility] [address] [place], [address] Monocytes/100 WBC (Bld) 7.6 % Normal 0-10 [facility] Comment on above: Performed By: #### L 100.0100 #### [facility] [address] [place], [address] Neutrophils/100 WBC (Bld) 55.0 % Normal 47-70 [facility] Comment on above: Performed By: #### L 100.0100 #### [facility] [address] [place], [address] Nucleated RBC (Bld) [#/Vol] 0 10*3/uL Normal 0-5 [facility] Comment on above: Performed By: #### L 100.0100 #### [facility] [address] [place], [address] Platelet mean volume (Bld) [Entitic vol] 10.0 fL Normal 6.2-12.0 [facility] Comment on above: Performed By: #### L 100.0100 #### [facility] [address] [place], [address] Platelets (Bld) [#/Vol] 242 10*3/uL Normal 150-450 [facility] Comment on above: Performed By: #### L 100.0100 #### [facility] [address] [place], [address] RBC (Bld) [#/Vol] 4.55 10*6/uL Normal 4.2-5.4 [facility] Comment on above: Performed By: #### L 100.0100 #### [facility] [address] [place], [address] RDW SD 40.3 fl Normal 35.1-43.9 [facility] Comment on above: Performed By: #### L 100.0100 #### [facility] [address] [place], [address] WBC (Bld) [#/Vol] 5.6 10*3/uL Normal 4.4-11.0 [facility] Comment on above: Performed By: #### L 100.0100 #### [facility] [address] [place], [address] Calculated very low density lipoprotein (VLDL) cholesterol measurementOrdered By: Willie Adams on 11-09-2024 Calculated very low density lipoprotein (VLDL) cholesterol measurement 29 mg/dL 5-40 [facility] VLDL Cholesterol 29 mg/dL -40 [facility] Carbon dioxide, total [Moles /volume] in Central venous bloodOrdered By: Willie Adams on 11-09-2024 CO2 [Moles/Vol] 23.7 mmol/L 21.0-32.0 [facility] Cervical or vaginal specimen microscopic examination by liquid based cytology (reportOrdered By: Fadia Lucio on 11-09-2024 Cytology report Cyto stain.thin prep Doc (Cvx/Vag) Comment . [facility] Comment on above: Criteria not met, HP V Genotype not performed.Performed at: - [facility] [id number] Director: Denisse Cheney MD, Phone: [phone] at: =[facility] [id number] Director: Denisse Cheney MD, Phone: [phone] Cervical or vagninal specime n microscopic examination by cytology stain (reported asOrdered By: Fadia Lucio on 11-09-2024 Cytology report Cyto stain Doc (Cvx/Vag) Comment . [facility] Comment on above: The Pap smear is a s creening test designed to aid in thedetection of premalignant and malignant conditions of theuterine cervix. It is not a diagnostic procedure andshould not be used as the sole means of detecting cervicalcancer. Both false-positive and false-negative reports dooccur. Chloride assayOrdered By: Mike [place] on 11-09-2024 Chloride [Moles/Vol] 106 mmol/L 98-108 [facility] Comprehensive Metabolic Prof ilon 11-09-2024 Albumin [Mass/Vol] 4.4 g/dL Normal 3.5-5.0 [facility] Comment on above: Performed By: #### L 499.0042 #### [facility] [address] [place], [place], [address] Albumin/Globulin [Mass ratio] 1.7 {ratio} Normal 0.9-2.4 [facility] Comment on above: Performed By: #### L 499.0042 #### [facility] [address] [place], [address] ALK PHOS 92 U/L Normal 35-104 [facility] Comment on above: Performed By: #### L 499.0042 #### [facility] [address] [place], [address] ALT [Catalytic activity/Vol] 14 U/L Normal <=34 [facility] Comment on above: Performed By: #### L 499.0042 #### [facility] [address] [place], [address] AST [Catalytic activity/Vol] 20 U/L Normal <=31 [facility] Comment on above: Performed By: #### L 499.0042 #### [facility] [address] [place], [address] Bilirubin [Mass/Vol] 0.35 mg/dL Normal 0.00-1.30 [facility] Comment on above: Performed By: #### L 499.0042 #### [facility] [address] [place], [address] BUN/CRE 14.8 RATIO Normal 10-20 [facility] Comment on above: Performed By: #### L 499.0042 #### [facility] [address] [place], [address] Calcium [Mass/Vol] 9.5 mg/dL Normal 7.6-11.0 [facility] Comment on above: Performed By: #### L 499.0042 #### [facility] [address] [place], [address] Chloride [Moles/Vol] 106 mmol/L Normal 98-108 [facility] Comment on above: Performed By: #### L 499.0042 #### [facility] [address] [place], [address] CO2 [Moles/Vol] 23.7 mmol/L Normal 21.0-32.0 [facility] Comment on above: Performed By: #### L 499.0042 #### [facility] [address] [place], [address] Creatinine [Mass/Vol] 1.05 mg/dL Normal 0.70-1.20 [facility] Comment on above: Performed By: #### L 499.0042 #### [facility] [address] [place], [address] GAP 11 Normal 5-15 [facility] Comment on above: Performed By: #### L 499.0042 #### [facility] [address] [place], [address] GFR/1.73 sq M.predicted among non-blacks MDRD (S/P/Bld) [Vol rate/Area] 62 mL/min/{1.73_m2} Normal >60 [facility] Comment on above: Result Comment: mL/m in/1.73m2 CKD-EPI Creatinine Equation (2020) Performed By: #### L 499.0042 #### [facility] [address] [place], [address] Globulin (S) [Mass/Vol] 2.7 g/dL Normal 2.2-4.2 [facility] Comment on above: Performed By: #### L 499.0042 #### [facility] [address] [place], [address] Glucose [Mass/Vol] 104 mg/dL High 70-99 [facility] Comment on above: Performed By: #### L 499.0042 #### [facility] [address] [place], [address] Potassium [Moles/Vol] 4.5 mmol/L Normal 3.3-5.1 [facility] Comment on above: Performed By: #### L 499.0042 #### [facility] [address] [place], [place], [address] Sodium [Moles/Vol] 140 mmol/L Normal 133-145 [facility] Comment on above: Performed By: #### L 499.0042 #### [facility] [address] [place], [place], [address] T PROT 7.1 g/dL Normal 5.9-8.4 [facility] Comment on above: Performed By: #### L 499.0042 #### [facility] [address] [place], [place], [address] Urea nitrogen [Mass/Vol] 16 mg/dL Normal 4-19 [facility] Comment on above: Performed By: #### L 499.0042 #### [facility] [address] [place], [place], [address] Silk Screen Layout Drafter Cyto stain Nom (C vx/Vag) [ID]Ordered By: Fadia Lucio on 11-09-2024 Pap Smear Performed By Comment . [facility] Comment on above: Tiffany Chavez ytotechnologist (ASCP) Cytology report Cyto stain D oc (Cvx/Vag)Ordered By: Fadia Lucio on 11-09-2024 Thin Prep Pap Smear Comment . [facility] Comment on above: The Pap smear is [...] 11-09-2024 HPV Genotype Special Info Comment . [facility] Comment on above: Criteria not met, HP V Genotype not performed.Performed at: - [address] [id number] Director: Denisse Cheney MD, Phone: [phone] at: =[facility] [address] [place] [id number] Director: Denisse Cheney MD, Phone: [phone] Detection in cervical specim en of any of human papilloma virus (HPV) 16, 18, 31, 33,Ordered By: Fadia Lucio on 11-09-2024 HPV 16+18+31+33+35+39+45+51+ 52+56+58+59+66+68 DNA Probe+sig amp Ql (Cvx) Negative Negative [facility] Comment on above: This nucleic acid am plification test detects fourteen high-risk HPV types (16,18,31,33,35,39,45,51,52,56,58,59,66,68)without differentiation. Eosinophil percentageOrdered By: Willie Adams on 11-09-2024 Eosinophils/100 WBC (Bld) 2.5 % 0-5 [facility] Erythrocyte distribution wid th ratioOrdered By: Willie Adasm on 11-09-2024 Erythrocyte distribution width (RBC) [Ratio] 12.1 % 11.6-14.6 [facility] Erythrocyte distribution wid th standard deviationOrdered By: Willie Adams on 11-09-2024 Erythrocyte distribution width (RBC) [Entitic vol] 40.3 fL 35.1-43.9 [facility] Erythrocyte distribution width (RBC) [Ratio] 40.3 fl 35.1-43.9 [facility] GFR/1.73 sq M.predicted katt g non-blacks MDRD (S/P/Bld) [Vol rate/Area]Ordered By: Willie Adams on 11-09-2024 Estimated GFR (MDRD) Non-Af Amer 62 >60 [facility] Comment on above: mL/min/1.73m2 CKD-EP I Creatinine Equation (2020) Glomerular filtration rate ( GFR) estimation/1.73 sq m using serum, plasma, or whole bOrdered By: Willie Adams on 11-09-2024 GFR/1.73 sq M.predicted among non-blacks MDRD (S/P/Bld) [Vol rate/Area] 62 mL/min/{1.73_m2} >60 [facility] Comment on above: mL/min/1.73m2 CKD-EP I Creatinine Equation (2020) HPV 16+18+31+33+35+39+45+51+ 52+56+58+59+66+68 DNA Probe+sig amp Ql (Cvx)Ordered By: Fadia Lucio on 11-09-2024 Human Papillomavirus High Risk Negative Negative [facility] Comment on above: This nucleic acid am plification test detects fourteen high-risk HPV types (16,18,31,33,35,39,45,51,52,56,58,59,66,68)without differentiation. Hematocrit Auto (Bld) [Volum e fraction]Ordered By: Willie Adams on 11-09-2024 Hematocrit (Bld) [Volume fraction] 41.8 % 37-47 [facility] Hemoglobin A1c percentageOrd ered By: Wilile [place] on 11-09-2024 HbA1c (Bld) [Mass fraction] 5.6 % Low >5.7 [facility] Hemoglobin measurementOrdere d By: Willie Adams on 11-09-2024 Hemoglobin (Bld) [Mass/Vol] 13.9 g/dL 12.0-15.0 [facility] Image-guided ThinPrep PapOrd ered By: Fadia Lucio on 11-09-2024 Pap Smear Note Comment . [facility] Comment on above: This liquid based Th inPrep(R) pap test was screened withthe use of an image guided system. Image-guided liquid-based Pa pOrdered By: Fadia Lucio on 11-09-2024 Pap Smear Diagnosis Comment . [facility] Comment on above: NEGATIVE FOR INTRAEP ITHELIAL LESION OR MALIGNANCY. Immature granulocytes/100 WB C Auto (Bld)Ordered By: Willie Adams on 11-09-2024 Immature granulocytes/100 WBC (Bld) 0.200 % 0.0-0.9 [facility] Comment on above: IG% - Immature Granu locytes (promyelocytes, myelocytes and metamyelocytes) > 1% indicates that a LEFT SHIFT is Present. LDL calc ser/plasOrdered By: Willie Adams on 11-09-2024 Cholesterol in LDL [Mass/Vol] 132 mg/dL [facility] Comment on above: Uepfdttrxl=837-738 m g/dL & Higher Wkjk=772 mg/dL or greater LDL Cholesterol, Calculated 132 mg/dL [facility] Comment on above: Gepahdzcpy=324-705 m g/dL & Higher Bhwe=086 mg/dL or greater Laboratory - Chemistry and C hemistry - challengeOrdered By: Willie Adams on 11-09-2024 AST [Catalytic activity/Vol] 20 U/L <32 [facility] - CytologyOrdered By: Fadia Lucio on 11-09-2024 Silk Screen Layout Drafter Cyto stain Nom (Cvx/Vag) [ID] Comment . [facility] Comment on above: Tiffany Chavez ytotechnologist (ASCP) Laboratory - Miscellaneous t estsOrdered By: Fadia Lucio on 11-09-2024 Service comment (Unsp spec) [Interp] . . [facility] Lipid Profileon 11-09-2024 CHOL:HDL 3.55 Normal [facility] Comment on above: Performed By: #### L 499.0042 #### [facility] [address] [place], [address] (991) Cholesterol [Mass/Vol] 223 mg/dL High <=200 [facility] Comment on above: Result Comment: Chol esterol level, Desirable <200 mg/dL Borderline high cholesterol 200-239 mg/dL High cholesterol >=240 mg/dL Recommendations of the NCEP Adult Treatment Panel for the following risk-cutoff thresholds for the [place] population. Performed By: #### L 499.0042 #### [facility] [address] [place], [place], [address] Cholesterol in HDL [Mass/Vol] 63 mg/dL Normal [facility] Comment on above: Result Comment: Jacqueline onal Cholesterol Education Program (NCEP) guidelines: <40 mg/dL: Low HDL-cholesterol (major risk factor for CHD) >= 60 mg/dL: High HDL-cholesterol (negative risk factor for CHD) HDL-cholesterol is affected by a number of factors, e.g. smoking, exercise, hormones, sex and age. Performed By: #### L 499.0042 #### [facility] [address] [place], [address] Cholesterol in LDL [Mass/Vol] 132 mg/dL Normal [facility] Comment on above: Result Comment: Bord nsqbrn=451-767 mg/dL Higher Dckh=937 mg/dL or greater Performed By: #### L 499.0042 #### [facility] [address] [place], [address] Cholesterol in VLDL [Mass/Vol] 29 mg/dL Normal 5-40 [facility] Comment on above: Performed By: #### L 499.0042 #### [facility] [address] [place], [address] Triglyceride [Mass/Vol] 143 mg/dL Normal [facility] Comment on above: Result Comment: The drugs N-Acetylcysteine and Metamizole may falsely depress this assay. Normal range: <150 mg/dL Borderline High: 150-199 mg/dL High: 200-499 mg/dL Very High: >500 mg/dL Performed By: #### L 499.0042 #### [facility] [address] [place], [address] Lymphocytes Auto (Unsp spec) [#/Vol]Ordered By: Willie Adams on 11-09-2024 Lymphocytes (Bld) [#/Vol] 1.89 10*3/uL 0.83-4.51 [facility] Lymphocytes/100 WBC Auto (Un sp spec)Ordered By: Willie Adams on 11-09-2024 Lymphocytes/100 WBC (Bld) 33.5 % 19-41 [facility] MCV (mean corpuscular volume ) determinationOrdered By: Willie Adams on 11-09-2024 MCV (RBC) [Entitic vol] 91.9 fL 81-99 [facility] Mean corpuscular hemoglobin (MCH) determinationOrdered By: Wlilie Adams on 11-09-2024 MCH (RBC) [Entitic mass] 30.5 pg 27.0-32.0 [facility] Mean corpuscular hemoglobin concentration (MCHC) determinationOrdered By: Willie Adams on 11-09-2024 MCHC (RBC) [Mass/Vol] 33.3 g/dL 32-36 [facility] Mean platelet volume determi nationOrdered By: Willie Adams on 11-09-2024 Platelet mean volume (Bld) [Entitic vol] 10.0 fL 6.2-12.0 [facility] Monocyte percentageOrdered B y: Willie Adams on 11-09-2024 Monocytes/100 WBC (Bld) 7.6 % 0-10 [facility] Neutrophil percentageOrdered By: josejanesvillefransisca Adams on 11-09-2024 Neutrophils/100 WBC (Bld) 55.0 % 47-70 [facility] No Panel InformationOrdered By: Fadia Lucio on 11-09-2024 Pap Smear Specimen Adequacy Comment . [facility] Comment on above: Satisfactory for nicolas luation. Endocervical and/or squamous metaplasticcells (endocervical component) are present. Nucleated red blood cell per centageOrdered By: Willie Adams on 11-09-2024 Nucleated RBC/100 WBC (Bld) [Ratio] 0 % 0-5 [facility] [employer] Office Visit Reporton 11-09-2024 [employer] Office Visit Report [facility] [address], [address] [place] [address] OFFICE VISIT Date of Service: 11/09/24 MR#: [id number] Acct: [id number] Name: POLINA THOMSON Rep #: [id number] : 1965 Provider: NIKOLE Myles Age/Sex: 59/F Location: [facility] Status: Signed Intake Vital Signs 02/15/23 14:49 [...] Method room air 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 She is here to establish her care. She reports over the past 2-3 months (more content not included)... Normal [facility] Platelet countOrdered By: Mike Adams on 11-09-2024 Platelets (Bld) [#/Vol] 242 10*3/uL 150-450 [facility] Potassium (Unsp spec) [Mass/ Vol]Ordered By: Willie Adams on 11-09-2024 Potassium [Moles/Vol] 4.5 mmol/L 3.3-5.1 [facility] Potassium measurement (mass/ volume)Ordered By: Willie Adams on 11-09-2024 Potassium (Unsp spec) [Mass/Vol] 4.5 mmol/L 3.3-5.1 [facility] RBC Auto (Bld) [#/Vol]Ordere d By: Willie Adams on 11-09-2024 RBC (Bld) [#/Vol] 4.55 10*6/uL 4.2-5.4 [facility] Screening total cholesterol/ high density lipoprotein (HDL) cholesterol ratioOrdered By: Wilile Adams on 11-09-2024 Cholesterol.total/Choles terol in HDL [Mass ratio] 3.55 {ratio} [facility] Serum creatinine measurement (mass/volume)Ordered By: Willie Adams on 11-09-2024 Creatinine [Mass/Vol] 1.05 mg/dL 0.70-1.20 [facility] Serum globulin measurementOr dered By: Willie Adams on 11-09-2024 Globulin (S) [Mass/Vol] 2.7 g/dL 2.2-4.2 [facility] Serum glucose measurement (m ass/volume)Ordered By: Willie Adams on 11-09-2024 Glucose [Mass/Vol] 104 mg/dL High 70-99 [facility] Serum or plasma alanine oakley otransferase (ALT) measurementOrdered By: Willie Adams on 11-09-2024 ALT [Catalytic activity/Vol] 14 U/L <35 [facility] Serum or plasma albumin carlito urement (mass/volume)Ordered By: Willie Adams on 11-09-2024 Albumin [Mass/Vol] 4.4 g/dL 3.5-5.0 [facility] Serum or plasma albumin/glob ulin mass ratioOrdered By: Willie Adams on 11-09-2024 Albumin/Globulin [Mass ratio] 1.7 {ratio} 0.9-2.4 [facility] Serum or plasma alkaline dez sphatase measurementOrdered By: Willie Adams on 11-09-2024 ALP [Catalytic activity/Vol] 92 U/L 35-104 [facility] Serum or plasma calcium carlito urement (mass/volume)Ordered By: Willie Adams on 11-09-2024 Calcium [Mass/Vol] 9.5 mg/dL 7.6-11.0 [facility] Serum or plasma cholesterol in HDL measurement (mass/volume)Ordered By: Willie Adams on 11-09-2024 Cholesterol in HDL [Mass/Vol] 63 mg/dL >40 [facility] Comment on above: National Cholesterol Education Program (NCEP) guidelines:<40 mg/dL: Low HDL-cholesterol (major risk factor for CHD)>= 60 mg/dL: High HDL-cholesterol (negative risk factor for CHD)HDL-cholesterol is affected by a number of factors, e.g. smoking, exercise, hormones, sex and age. Serum or plasma cholesterol measurement (mass/volume)Ordered By: Willie Adams on 11-09-2024 Cholesterol [Mass/Vol] 223 mg/dL High <201 [facility] Comment on above: Cholesterol level, D esirable <200 mg/dLBorderline high cholesterol 200-239 mg/dLHigh cholesterol >=240 mg/dLRecommendations of the NCEP Adult Treatment Panel for the following risk-cutoff thresholds for the [place] population. Serum or plasma urea nitroge n measurement (mass/volume)Ordered By: Willie Adams on 11-09-2024 Urea nitrogen [Mass/Vol] 16 mg/dL 4-19 [facility] Service comment (Unsp spec) [Interp]Ordered By: Fadai Lucio on 11-09-2024 Pap Smear Comment (3) . . [facility] Sodium levelOrdered By: Joaquin Adams on 11-09-2024 Sodium [Moles/Vol] 140 mmol/L 133-145 [facility] T4 Free Directon 11-09-2024 T4 FREE DIRECT 1.10 ng/dL Normal 0.76-1.46 [facility] Comment on above: Performed By: #### L 499.0042 #### [facility] [address] [place], [place], [address] T4 freeOrdered By: Mikejoseindrafransisca Adams on 11-09-2024 Free T4 [Mass/Vol] 1.10 ng/dL 0.76-1.46 [facility] TSH DL <= 0.005 mIU/L QnOrde red By: Mikejoseindrafransisca Adams on 11-09-2024 Thyroid Stimulating Hormone (TSH) 3.490 uIU/mL 0.300-4.200 [facility] TSH Qn 3.490 uIU/mL 0.300-4.200 [facility] Thyroid Stim Hormone (TSH)on 11-09-2024 TSH 3.490 uIU/mL Normal 0.300-4.200 [facility] Comment on above: Performed By: #### L 499.0042 #### [facility] [address] [place], [place], [address] Total proteinOrdered By: Ata caroline Angie on 11-09-2024 Protein [Mass/Vol] 7.1 g/dL 5.9-8.4 [facility] Triglycerides measurementOrd ered By: Bobfransisca Adams on 11-09-2024 Triglyceride [Mass/Vol] 143 mg/dL <199 [facility] Comment on above: The drugs N-Acetylcy steine and Metamizole may falsely depress this assay. Normal range: <150 mg/dLBorderline High: 150-199 mg/dLHigh: 200-499 mg/dLVery High: >500 mg/dL White blood cell (WBC) count Ordered By: Joaquinindrafransisca Adams on 11-09-2024 WBC (Bld) [#/Vol] 5.6 10*3/uL 4.4-11.0 [facility] Internal Medicine Office Vis iton 11-08-2024 Internal Medicine Office Visit [facility] [address] [place] [address] [address] [place] [address] OFFICE VISIT Date of Service: 11/08/24 MR#: [id number] Acct: [id number] Name: POLINA THOMSON Rep #: [id number] : 1965 Provider: Dr. 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: No Is patient in pain?: No Allergies perfume Allergy (Verified 11/08/24 17:37) throat swelling Medications ???Medication ???Instructions ???Recorded ???Confirmed ???Type ibuprofen 600 mg tablet 600 mg PO Q6H PRN PRN Pain Score 0 02/05/20 11/08/24 Rx -05/25 #20 tabs mecobalamin (vitamin B12) 500 mcg mcg PO 09/08/24 11/08/24 History chewable tablet propranolol 60 mg capsule,24 60 mg PO QDAY 09/08/24 11/08/24 Hi story hr,extended release frulcinf-qge-dpfjx ac 400 tab PO 11/08/24 11/08/24 History [...] mcg-zinc 5.5 cap PO 11/08/24 11/08/24 History cv-yehmpl-xlruluo-ging er-herb capsule (Immune Support (vit c, d and zinc)) PFSH Medical History (Updated 11/08/24 @ 18:47 by [...] No current occupational status: employed 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 Had previously followed up at the [facility]. She states that over the last 2 [...] after overdos (more content not included)... Normal [facility] Gastric Emptying Studyon Gastric Emptying Study [facility] Imaging Services [address] [place] [address] Gastric Emptying Study MR#: [id number] Acct: [id number] Name: POLINA THOMSON Rep #: [id number] : 1965 F 59 From: Ariel moody MD PCP: Dr. Willie Adams MD Status: REG CLI Study: Gastric Emptying Study Date of Exam: 10/04/24 Exam# [id number] Ordering Dr: Alma Melton PROCEDURE: GASTRIC EMPTYING [...] Study IMPRESSION: Normal gastric emptying. Reading Location: [id number] CC: Dr. Willie Adams MD; LETICIA Ham Booster Operator: Signed Normal [facility] Gastroenterology Visit Repor ton 09-19-2024 Gastroenterology Visit Report [facility] [address] [place] [address] OFFICE VISIT Date of Service: 09/19/24 MR#: [id number] Acct: [id number] Name: POLINA THOMSON Rep #: [id number] : 1965 Provider: LETICIA Ham Age/Sex: 59/F Location: [facility] Status: Signed with Addenda ADDENDUM by LETICIA [...] 09.19.24 Pt here to establish care with [facility]. Reports constipation, abdominal pain, gas, bloating, difficultly swallowing and heartburn. Reports a formed BM daily and takes senna to help her keep regular. Prior hx of EGD and colonoscopy in 2019. Continues [facility] Medical History Vaginal delivery [place] [...] the office today for establishment with [facility]. Pt has had GI issues for many [...] cramps, numb (more content not included)... Normal [facility] CNOVon 06-26-2024 [facility] Office Visit (INTMWS ) POLINA THOMSON ([id number]) 1965 F Date Time Provider Department 06/26/24 8:20 AM ALEJANDRINA GRAHAM INTMWS During your visit today, we recorded [...] Noticed it first at the trip to [place] last year, the pain is in the thigh muscle, tendon in the groin, and deep inside the side of the trochanter. she feels like her knee deanne under her. She is a little stressed. She quit her job, at [employer]. Looking for a new job [...] TRANSORAL DIAGNOSTIC 01/26/2019 EGD S BALLOON,UTERINE ABLATION [id number] [address] [place] FAMILY HISTORY Problem Relation Age of Onset [...] reviewed and discussed today Current Outpatient Medications: Y-O7-icfj-wof-hbgwz-df ng-herb (IMMUNE SUPPORT, VIT C,D,ZINC,) 180 mg-10 mcg- 5.5 mg-150 mg cap Lactobacillus rhamnosus GG (CULTURELLE ORAL) bismuth subsalicylate (DIGESTIVE RELIEF ORAL) MWSZV-XLZZUTOVC-MWZUSQ IUM MISC propranolol ER (INDERAL LA) 60 [...] and joselin (more content not included)... Normal [facility] XR HIP IVONE 5V PEL+ AP/LAT EA HIPon 06-26-2024 XR HIP IVONE 5V PEL+ AP/LAT EA HIP * * *Final Report* * * DATE OF EXAM: Jun 26 2024 10:22AM WOX [id number] - XR HIP IVONE 5V PEL+ AP/LAT EA HIP / PROCEDURE REASON: Left hip pain * * * * Physician Interpretation * * * * EXAMINATION / TECHNIQUE: XR HIP IOVNE 5V PEL+ AP/LAT EA HIP PATIENT/TECHNOLOGIST PROVIDED [...] abnormality. 2. Hip joint spaces are maintained. Booster Operator: MAXIM Transcribe Date/Time: Jun 29 2024 11:23P Dictated by : CARLOS BASILIO MD This examination was interpreted and the report reviewed and electronically signed by: CARLOS BASILIO MD on Jun 29 2024 11:24PM EST [id number] Normal [facility] CBC W Auto Differential pane l (Bld)on 04-05-2024 Basophils (Bld) [#/Vol] 0.04 10*3/uL [facility] Basophils/100 WBC (Bld) 0.9 % C [facility] Differential cell count method Nom (Bld) Auto [facility] Eosinophils (Bld) [#/Vol] 0.09 10*3/uL [facility] Eosinophils/100 WBC (Bld) 2.1 % [facility] Erythrocyte distribution width (RBC) [Ratio] 11.9 % 11.5 - 15.0 % [facility] Hematocrit (Bld) [Volume fraction] 39.2 % 36.0 - 46.0 % [facility] Hemoglobin (Bld) [Mass/Vol] 13.2 g/dL 11.5 - 15.5 g/dL [facility] Immature granulocytes (Bld) [#/Vol] [facility] Immature granulocytes/100 WBC (Bld) 0.2 % [facility] Lymphocytes (Bld) [#/Vol] 1.48 10*3/uL [facility] Lymphocytes/100 WBC (Bld) 34.7 % [facility] MCH (RBC) [Entitic mass] 30.6 pg 26. 0 - 34.0 pg [facility] MCHC (RBC) [Mass/Vol] 33.7 g/dL 30.5 - 36.0 g/dL [facility] MCV (RBC) [Entitic vol] 90.7 fL 80.0 - 100.0 fL [facility] Monocytes (Bld) [#/Vol] 0.35 10*3/uL [facility] Monocytes/100 WBC (Bld) 8.2 % [facility] Neutrophils (Bld) [#/Vol] 2.29 10*3/uL [facility] Neutrophils/100 WBC (Bld) 53.9 % [facility] Nucleated RBC (Bld) [#/Vol] [facility] Nucleated RBC/100 WBC (Bld) [Ratio] 0.0 % /100 WBC [facility] Platelet mean volume (Bld) [Entitic vol] 9.9 fL 9.0 - 12.7 fL [facility] Platelets (Bld) [#/Vol] 223 10*3/uL [facility] RBC (Bld) [#/Vol] 4.32 10*6/uL 3.90 - 5.2 0 m/uL [facility] WBC (Bld) [#/Vol] 4.26 10*3/uL [facility] Basophils (Bld) [#/Vol] 0.04 10*3/uL Normal <0.11 [facility] Comment on above: Order Comment: Speci men Type: BLOOD SPECIMEN Ordering Facility: [facility] Address: [address] [place] [address] Performed By: #### 5 7021-8 #### [facility] CLIA [id number] [address] [place] [address] [place] Basophils/100 WBC (Bld) 0.9 % Normal [facility] Comment on above: Order Comment: Speci men Type: BLOOD SPECIMEN Ordering Facility: [facility] Address: [address] [place] [address] Performed By: #### 5 7021-8 #### [facility] CLIA [id number] [address] [place] [address] [place] Differential cell count method Nom (Bld) Auto Normal [facility] Comment on above: Order Comment: Speci men Type: BLOOD SPECIMEN Ordering Facility: [facility] Address: [address] [place] [address] Performed By: #### 5 7021-8 #### [facility] CLIA [id number] [address] [place] [address] [place] Eosinophils (Bld) [#/Vol] 0.09 10*3/uL Normal <0.46 [facility] Comment on above: Order Comment: Speci men Type: BLOOD SPECIMEN Ordering Facility: [facility] Address: [address] [place] [address] Performed By: #### 5 7021-8 #### [facility] CLIA [id number] [address] [place] [address] [place] Eosinophils/100 WBC (Bld) 2.1 % Normal [facility] Comment on above: Order Comment: Speci men Type: BLOOD SPECIMEN Ordering Facility: [facility] Address: [address] [place] [address] Performed By: #### 5 7021-8 #### [facility] CLIA [id number] [address] [place] [address] [place] Erythrocyte distribution width (RBC) [Ratio] 11.9 % Normal 11.5-15.0 [facility] Comment on above: Order Comment: Speci men Type: BLOOD SPECIMEN Ordering Facility: [facility] Address: [address] [place] [address] Performed By: #### 5 7021-8 #### [facility] CLIA [id number] [address] [place] [address] [place] Hematocrit (Bld) [Volume fraction] 39.2 % Normal 36.0-46.0 [facility] Comment on above: Order Comment: Speci men Type: BLOOD SPECIMEN Ordering Facility: [facility] Address: [address] [place] [address] Performed By: #### 5 7021-8 #### [facility] CLIA [id number] [address] [place] [address] [place] Hemoglobin (Bld) [Mass/Vol] 13.2 g/dL Normal 11.5-15.5 [facility] Comment on above: Order Comment: Speci men Type: BLOOD SPECIMEN Ordering Facility: [facility] Address: [address] [place] [address] Performed By: #### 5 7021-8 #### [facility] CLIA [id number] [address] [place] [address] [place] Immature granulocytes (Bld) [#/Vol] 10*3/uL Normal <0.10 [facility] Comment on above: Order Comment: Speci men Type: BLOOD SPECIMEN Ordering Facility: [facility] Address: [address] [place] [address] Performed By: #### 5 7021-8 #### [facility] CLIA [id number] [address] [place] [address] [place] Immature granulocytes/100 WBC (Bld) 0.2 % Normal [facility] Comment on above: Order Comment: Speci men Type: BLOOD SPECIMEN Ordering Facility: [facility] Address: [address] [place] [address] Performed By: #### 5 7021-8 #### [facility] CLIA [id number] [address] [place] [address] [place] Lymphocytes (Bld) [#/Vol] 1.48 10*3/uL Normal 1.00-4.00 [facility] Comment on above: Order Comment: Speci men Type: BLOOD SPECIMEN Ordering Facility: [facility] Address: [address] [place] [address] Performed By: #### 5 7021-8 #### [facility] CLIA [id number] [address] [place] [address] [place] Lymphocytes/100 WBC (Bld) 34.7 % Normal [facility] Comment on above: Order Comment: Speci men Type: BLOOD SPECIMEN Ordering Facility: [facility] Address: [address] [place] [address] Performed By: #### 5 7021-8 #### [facility] CLIA [id number] [address] [place] [address] [place] MCH (RBC) [Entitic mass] 30.6 pg Normal 26.0-34.0 [facility] Comment on above: Order Comment: Speci men Type: BLOOD SPECIMEN Ordering Facility: [facility] Address: [address] [place] [address] Performed By: #### 5 7021-8 #### [facility] CLIA [id number] [address] [place] [address] [place] MCHC (RBC) [Mass/Vol] 33.7 g/dL Normal 30.5-36.0 [facility] Comment on above: Order Comment: Speci men Type: BLOOD SPECIMEN Ordering Facility: [facility] Address: [address] [place] [address] Performed By: #### 5 7021-8 #### [facility] CLIA [id number] [address] [place] [address] [place] MCV (RBC) [Entitic vol] 90.7 fL Normal 80.0-100.0 [facility] Comment on above: Order Comment: Speci men Type: BLOOD SPECIMEN Ordering Facility: [facility] Address: [address] [place] [address] Performed By: #### 5 7021-8 #### [facility] CLIA [id number] [address] [place] [address] [place] Monocytes (Bld) [#/Vol] 0.35 10*3/uL Normal <0.87 [facility] Comment on above: Order Comment: Speci men Type: BLOOD SPECIMEN Ordering Facility: [facility] Address: [address] [place] [address] Performed By: #### 5 7021-8 #### [facility] CLIA [id number] [address] [place] [address] [place] Monocytes/100 WBC (Bld) 8.2 % Normal [facility] Comment on above: Order Comment: Speci men Type: BLOOD SPECIMEN Ordering Facility: [facility] Address: [address] [place] [address] Performed By: #### 5 7021-8 #### [facility] CLIA [id number] [address] [place] [address] [place] Neutrophils (Bld) [#/Vol] 2.29 10*3/uL Normal 1.45-7.50 [facility] Comment on above: Order Comment: Speci men Type: BLOOD SPECIMEN Ordering Facility: [facility] Address: [address] [place] [address] Performed By: #### 5 7021-8 #### [facility] CLIA [id number] [address] [place] [address] [place] Neutrophils/100 WBC (Bld) 53.9 % Normal [facility] Comment on above: Order Comment: Speci men Type: BLOOD SPECIMEN Ordering Facility: [facility] Address: [address] [place] [address] Performed By: #### 5 7021-8 #### [facility] CLIA [id number] [address] [place] [address] [place] Nucleated RBC (Bld) [#/Vol] 10*3/uL Normal <0.01 [facility] Comment on above: Order Comment: Speci men Type: BLOOD SPECIMEN Ordering Facility: [facility] Address: [address] [place] [address] Performed By: #### 5 7021-8 #### [facility] CLIA [id number] [address] [place] [address] [place] Nucleated RBC/100 WBC (Bld) [Ratio] 0.0 /100 WBC Normal [facility] Comment on above: Order Comment: Speci men Type: BLOOD SPECIMEN Ordering Facility: [facility] Address: [address] [place] [address] Performed By: #### 5 7021-8 #### [facility] CLIA [id number] [address] [place] [address] [place] Platelet mean volume (Bld) [Entitic vol] 9.9 fL Normal 9.0-12.7 [facility] Comment on above: Order Comment: Speci men Type: BLOOD SPECIMEN Ordering Facility: [facility] Address: [address] [place] [address] Performed By: #### 5 7021-8 #### [facility] CLIA [id number] [address] [place] [address] [place] Platelets (Bld) [#/Vol] 223 10*3/uL Normal 150-400 [facility] Comment on above: Order Comment: Speci men Type: BLOOD SPECIMEN Ordering Facility: [facility] Address: [address] [place] [address] Performed By: #### 5 7021-8 #### [facility] CLIA [id number] [address] [place] [address] [place] RBC (Bld) [#/Vol] 4.32 10*6/uL Normal 3.90-5.20 [facility] Comment on above: Order Comment: Speci men Type: BLOOD SPECIMEN Ordering Facility: [facility] Address: [address] [place] [address] Performed By: #### 5 7021-8 #### [facility] CLIA [id number] [address] [place] [address] [place] WBC (Bld) [#/Vol] 4.26 10*3/uL Normal 3.70-11.00 [facility] Comment on above: Order Comment: Speci men Type: BLOOD SPECIMEN Ordering Facility: [facility] Address: [address] [place] [address] Performed By: #### 5 7021-8 #### [facility] CLIA [id number] [address] [place] [address] [place] CNOVon 04-05-2024 [facility] Office Visit (INTMWS ) POLINA THOMSON ([id number]) 1965 F Date Time Provider Department 04/05/24 9:40 AM LAUREL MURRY During your visit today, we recorded the following information about you: Pulse Blood pressure Weight 65/minute 122/76 84.4 kg Laurel Murry APRN.LEVEL VIAL GRINDER 04/05/2024 10:11 AM Signed SUBJECTIVE Polina Thomson [...] date. Medications Current Outpatient Medications Medication Sig W-J2-nbbn-qgi-iuoww-yi ng-herb (IMMUNE SUPPORT, VIT C,D,ZINC,) 180 mg-10 mcg- 5.5 mg-150 mg cap Take 2 capsules by mouth once daily. calcium cit/vit D3/isoflavon 2 (MENOPAUSE RELIEF ORAL) Take 2 capsules by mouth once daily. Lactobacillus rhamnosus GG (CULTURELLE ORAL) Take 1 capsule by mouth once daily. bismuth subsalicylate (DIGESTIVE RELIEF ORAL) Take 1 tablet by mouth two times a day. ABIXG-MYTAMNUGU-LYCSRT IUM MISC 1 tablet as needed. propranolol [...] F41.9, F32.A (more content not included)... Normal [facility] Comprehensive metabolic 2000 panelOrdered By: Fidelia Sidhu on 04-05-2024 Albumin [Mass/Vol] 4.4 g/dL 3.9 - 4.9 g/dL [facility] ALP [Catalytic activity/Vol] 86 U/L 34 - 123 U/L [facility] ALT [Catalytic activity/Vol] 12 U/L 7 - 38 U/L [facility] Anion gap [Moles/Vol] 10 mmol/L 8 - 15 mmol/L [facility] AST [Catalytic activity/Vol] 18 U/L 13 - 35 U/L [facility] Bilirubin [Mass/Vol] 0.4 mg/dL 0.2 - 1 .3 mg/dL [facility] Calcium [Mass/Vol] 9.8 mg/dL 8.5 - 10. 2 mg/dL [facility] Chloride [Moles/Vol] 105 mmol/L 98 - 10 7 mmol/L [facility] CO2 [Moles/Vol] 23 mmol/L 22 - 30 mmol/L [facility] Creatinine [Mass/Vol] 0.82 mg/dL 0.58 - 0.96 mg/dL [facility] GFR/1.73 sq M.predicted among non-blacks MDRD (S/P/Bld) [Vol rate/Area] 84 mL/min/{1.73_m2} - PINF [facility] Comment on above: Estimated Glomerular Filtration Rate [...] [Mass/Vol] 94 mg/dL 74 - 99 mg/dL [facility] Comment on above: The [place] Diabete s Association (ADA) provides guidance for [...] Standards of Medical Care in Diabetes 2016, [place] [employer] Association. Diabetes Care. 2016.39(Suppl 1). Interpretation and review of laboratory results Normal [facility] Potassium [Moles/Vol] 4.5 mmol/L 3.7 - 5.1 mmol/L [facility] Protein [Mass/Vol] 6.8 g/dL 6.3 - 8.0 g/dL [facility] Sodium [Moles/Vol] 138 mmol/L 136 - 144 mmol/L [facility] Urea nitrogen [Mass/Vol] 17 mg/dL 7 - 21 mg/d L [facility] Comprehensive metabolic 2000 panelon 04-05-2024 Albumin [Mass/Vol] 4.4 g/dL Normal 3.9-4.9 [facility] Comment on above: Order Comment: Korey judge Type: BLOOD SPECIMEN Ordering Facility: [facility] Address: [address] [place] [address] Performed By: #### 2 4323-8 #### [facility] CLIA [id number] [address] [place] [address] [place] ALP [Catalytic activity/Vol] 86 U/L Normal 34-123 [facility] Comment on above: Order Comment: Korey judge Type: BLOOD SPECIMEN Ordering Facility: [facility] Address: [address] [place] [address] Performed By: #### 2 4323-8 #### [facility] CLIA [id number] [address] [place] [address] [place] ALT [Catalytic activity/Vol] 12 U/L Normal 7-38 [facility] Comment on above: Order Comment: Speci men Type: BLOOD SPECIMEN Ordering Facility: [facility] Address: [address] [place] [address] Performed By: #### 2 4323-8 #### [facility] CLIA [id number] [address] [place] [address] [place] Anion gap [Moles/Vol] 10 mmol/L Normal 8-15 [facility] Comment on above: Order Comment: Speci men Type: BLOOD SPECIMEN Ordering Facility: [facility] Address: [address] [place] [address] Performed By: #### 2 4323-8 #### [facility] CLIA [id number] [address] [place] [address] [place] AST [Catalytic activity/Vol] 18 U/L Normal 13-35 [facility] Comment on above: Order Comment: Speci men Type: BLOOD SPECIMEN Ordering Facility: [facility] Address: [address] [place] [address] Performed By: #### 2 4323-8 #### [facility] CLIA [id number] [address] [place] [address] [place] Bilirubin [Mass/Vol] 0.4 mg/dL Normal 0.2-1.3 [facility] Comment on above: Order Comment: Speci men Type: BLOOD SPECIMEN Ordering Facility: [facility] Address: [address] [place] [address] Performed By: #### 2 4323-8 #### [facility] CLIA [id number] [address] [place] [address] [place] Calcium [Mass/Vol] 9.8 mg/dL Normal 8.5-10.2 [facility] Comment on above: Order Comment: Speci men Type: BLOOD SPECIMEN Ordering Facility: [facility] Address: [address] [id number] Performed By: #### 2 4323-8 #### [facility] CLIA [id number] [address] [place] [address] [place] Chloride [Moles/Vol] 105 mmol/L Normal 98-107 [facility] Comment on above: Order Comment: Speci men Type: BLOOD SPECIMEN Ordering Facility: [facility] Address: [address] [place] [address] Performed By: #### 2 4323-8 #### [facility] CLIA [id number] [address] [place] [address] [place] CO2 [Moles/Vol] 23 mmol/L Normal 22-30 [facility] Comment on above: Order Comment: Speci men Type: BLOOD SPECIMEN Ordering Facility: [facility] Address: [address] [place] [address] Performed By: #### 2 4323-8 #### [facility] CLIA [id number] [address] [place] [address] [place] Creatinine [Mass/Vol] 0.82 mg/dL Normal 0.58-0.96 [facility] Comment on above: Order Comment: Speci men Type: BLOOD SPECIMEN Ordering Facility: [facility] Address: [address] [place] [address] Performed By: #### 2 4323-8 #### [facility] CLIA [id number] [address] [place] [address] [place] Creatinine and Glomerular filtration rate.predicted panel (S/P/Bld) 84 mL/min/1.73m??? Normal >=60 [facility] Comment on above: Order Comment: Speci men Type: BLOOD SPECIMEN Ordering Facility: [facility] Address: [address] [place], [place] [id number] Result Comment: Whit mated Glomerular Filtration Rate [...] actual GFR. Performed By: #### 2 4323-8 #### [facility] CLIA [id number] [address] [place] [address] [place] Glucose [Mass/Vol] 94 mg/dL Normal 74-99 [facility] Comment on above: Order Comment: Korey judge Type: BLOOD SPECIMEN Ordering Facility: [facility] Address: [address] [place] [address] Result Comment: The [place] Diabetes Association (ADA) provides guidance for cutoff [...] Standards of Medical Care in Diabetes 2016, [place] Diabetes Association. Diabetes Care. 2016.39(Suppl 1). Performed By: #### 2 4323-8 #### [facility] CLIA [id number] [address] [place] [address] [place] Potassium [Moles/Vol] 4.5 mmol/L Normal 3.7-5.1 [facility] Comment on above: Order Comment: Korey judge Type: BLOOD SPECIMEN Ordering Facility: [facility] Address: [address] [place] [address] Performed By: #### 2 4323-8 #### [facility] CLIA [id number] [address] [place] [address] [place] Protein [Mass/Vol] 6.8 g/dL Normal 6.3-8.0 [facility] Comment on above: Order Comment: Speci men Type: BLOOD SPECIMEN Ordering Facility: [facility] Address: [address] [place] [address] Performed By: #### 2 4323-8 #### [facility] CLIA [id number] [address] [place] [address] [place] Sodium [Moles/Vol] 138 mmol/L Normal 136-144 [facility] Comment on above: Order Comment: Speci men Type: BLOOD SPECIMEN Ordering Facility: [facility] Address: [address] [place] [address] Performed By: #### 2 4323-8 #### [facility] CLIA [id number] [address] [place] [address] [place] Urea nitrogen [Mass/Vol] 17 mg/dL Normal 7-21 [facility] Comment on above: Order Comment: Speci men Type: BLOOD SPECIMEN Ordering Facility: [facility] Address: [address] [place] [address] Performed By: #### 2 4323-8 #### [facility] CLIA [id number] [address] [place] [address] [place] T3Free SerPl-mCncon 04-05-20 24 Free T3 [Mass/Vol] 2.7 pg/mL Normal 2.3-4.1 [facility] Comment on above: Order Comment: Speci men Type: BLOOD SPECIMEN Ordering Facility: [facility] Address: [address] [place] [address] Performed By: #### 3 051-0, 3024-7, 3016-3 #### [facility] CLIA [id number] [address] [place] [address] [id number] [address] [place] T4 Free SerPl-mCncon 024 Free T4 [Mass/Vol] 1.1 ng/dL Normal 0.9-1.7 [facility] Comment on above: Order Comment: Speci men Type: BLOOD SPECIMEN Ordering Facility: [facility] Address: [address] [place] [address] Performed By: #### 3 051-0, 3024-7, 3016-3 #### [facility] CLIA [id number] [address] [place] [address] [place] TSH SerPl-aCncon 04-05-2024 TSH Qn 2.180 m[IU]/L Normal 0.270-4.200 [facility] Comment on above: Order Comment: Korey jduge Type: BLOOD SPECIMEN Ordering Facility: [facility] Address: [address] [place] [address] Performed By: #### 3 051-0, 3024-7, 3016-3 #### [facility] CLIA [id number] [address] [place] [address] [place] US THYROID/PARATHYROIDon US THYROID/PARATHYROID * * *Final Report * * * DATE OF EXAM: Apr 05 2024 10:37AM [facility] 1048 - US THYROID/PARATHYROID [...] IMPRESSION: Normal sonographic appearance of the thyroid. Booster Operator: MAXIM Transcribe Date/Time: Apr 05 2024 10:38A Dictated by : CRISTEL MURPHY MD This examination was interpreted and the report reviewed and electronically signed by: CRISTEL MURPHY MD on Apr 05 2024 10:43AM EST [id number] Normal [facility] US Thyroid glandon Radiology Study observation (narrative) [facility] IMPRESSION: Normal sonographic appearance of the thyroid. Booster Operator: MAXIM Transcribe Date/Time: Apr 05 2024 10:38A Dictated by : CRISTEL MURPHY MD This examination was interpreted and the report reviewed and electronically signed by: CRISTEL MURPHY MD on Apr 05 2024 10:43AM [facility] DIVISION OF RADIOLOGY * * *Final Report* * * DATE OF EXAM: Apr 05 2024 10:37AM [facility] 1048 - US THYROID/PARATHYROID [...] cm Nodules: None DIVISION OF RADIOLOGY Provider, [facility] - 04/05/2024 * * *Final Report* * * DATE OF EXAM: Apr 05 2024 10:37AM [facility] 1048 - US THYROID/PARATHYROID [...] IMPRESSION: Normal sonographic appearance of the thyroid. Booster Operator: MAXIM Transcribe Date/Time: Apr 05 2024 10:38A Dictated by : CRISTEL MURPHY MD This examination was interpreted and the report reviewed and electronically signed by: CRISTEL MURPHY MD on Apr 05 2024 10:43AM EST [facility] US Thyroid glandOrdered By: Ccf Provider on 04-05-2024 [facility] CBC W Auto Differential pane l (Bld)on 09-22-2023 Basophils (Bld) [#/Vol] 0.06 10*3/uL <0.11 k/uL [facility] Basophils/100 WBC (Bld) 1.2 % C [facility] Differential cell count method Nom (Bld) Auto [facility] Eosinophils (Bld) [#/Vol] 0.14 10*3/uL <0.46 k/uL [facility] Eosinophils/100 WBC (Bld) 2.8 % [facility] Erythrocyte distribution width (RBC) [Ratio] 12.4 % 11.5 - 15.0 % [facility] Hematocrit (Bld) [Volume fraction] 41.3 % 36.0 - 46.0 % [facility] Hemoglobin (Bld) [Mass/Vol] 13.4 g/dL 11.5 - 15.5 g/dL [facility] Immature granulocytes (Bld) [#/Vol] <0.10 k/uL [facility] Immature granulocytes/100 WBC (Bld) 0.2 % [facility] Lymphocytes (Bld) [#/Vol] 1.68 10*3/uL 1.00 - 4.00 k/uL [facility] Lymphocytes/100 WBC (Bld) 33.5 % [facility] MCH (RBC) [Entitic mass] 30.0 pg 26. 0 - 34.0 pg [facility] MCHC (RBC) [Mass/Vol] 32.4 g/dL 30.5 - 36.0 g/dL [facility] MCV (RBC) [Entitic vol] 92.4 fL 80.0 - 100.0 fL [facility] Monocytes (Bld) [#/Vol] 0.50 10*3/uL <0.87 k/uL [facility] Monocytes/100 WBC (Bld) 10.0 % [facility] Neutrophils (Bld) [#/Vol] 2.62 10*3/uL 1.45 - 7.50 k/uL [facility] Neutrophils/100 WBC (Bld) 52.3 % [facility] Nucleated RBC (Bld) [#/Vol] <0.01 k/uL [facility] Nucleated RBC/100 WBC (Bld) [Ratio] 0.0 /100 WBC [facility] Platelet mean volume (Bld) [Entitic vol] 10.9 fL 9.0 - 12.7 fL [facility] Platelets (Bld) [#/Vol] 210 10*3/uL 150 - 400 k/uL [facility] RBC (Bld) [#/Vol] 4.47 10*6/uL 3.90 - 5.2 0 m/uL [facility] WBC (Bld) [#/Vol] 5.01 10*3/uL 3.70 - 11. 00 k/uL [facility] Comprehensive metabolic 2000 panelon 09-22-2023 Albumin [Mass/Vol] 4.3 g/dL 3.9 - 4.9 g/dL [facility] ALP [Catalytic activity/Vol] 87 U/L 34 - 123 U/L [facility] ALT [Catalytic activity/Vol] 17 U/L 7 - 38 U/L [facility] Anion gap [Moles/Vol] 9 mmol/L 9 - 18 mmol/L [facility] AST [Catalytic activity/Vol] 24 U/L 13 - 35 U/L [facility] Bilirubin [Mass/Vol] 0.3 mg/dL 0.2 - 1 .3 mg/dL [facility] Calcium [Mass/Vol] 9.5 mg/dL 8.5 - 10. 2 mg/dL [facility] Chloride [Moles/Vol] 105 mmol/L 97 - 10 5 mmol/L [facility] CO2 [Moles/Vol] 26 mmol/L 22 - 30 mmol/L [facility] Creatinine [Mass/Vol] 0.79 mg/dL 0.58 - 0.96 mg/dL [facility] Estimated Glomerular Filtration Rate 88 mL/min/1.73m >=60 mL/min/1.73m [facility] Glucose [Mass/Vol] 82 mg/dL 74 - 99 mg/dL [facility] Potassium [Moles/Vol] 4.3 mmol/L 3.7 - 5.1 mmol/L [facility] Protein [Mass/Vol] 6.6 g/dL 6.3 - 8.0 g/dL [facility] Sodium [Moles/Vol] 140 mmol/L 136 - 144 mmol/L [facility] Urea nitrogen [Mass/Vol] 19 mg/dL 7 - 21 mg/d L [facility] HbA1c (Bld)on 09-22-2023 Average glucose Estimated from glycated hemoglobin (Bld) [Mass/Vol] 111 mg/dL [facility] HbA1c (Bld) [Mass fraction] 5.5 % 4.3 - 5.6 % [facility] CBC W Auto Differential pane l (Bld)on 12-15-2022 Basophils (Bld) [#/Vol] 0.06 10*3/uL <0.11 k/uL [facility] Basophils/100 WBC (Bld) 1.2 % C [facility] Differential cell count method Nom (Bld) Auto [facility] Eosinophils (Bld) [#/Vol] 0.08 10*3/uL <0.46 k/uL [facility] Eosinophils/100 WBC (Bld) 1.7 % [facility] Erythrocyte distribution width (RBC) [Ratio] 11.9 % 11.5 - 15.0 % [facility] Hematocrit (Bld) [Volume fraction] 42.3 % 36.0 - 46.0 % [facility] Hemoglobin (Bld) [Mass/Vol] 14.0 g/dL 11.5 - 15.5 g/dL [facility] Immature granulocytes (Bld) [#/Vol] <0.10 k/uL [facility] Immature granulocytes/100 WBC (Bld) 0.4 % [facility] Lymphocytes (Bld) [#/Vol] 1.51 10*3/uL 1.00 - 4.00 k/uL [facility] Lymphocytes/100 WBC (Bld) 31.3 % [facility] MCH (RBC) [Entitic mass] 29.9 pg 26. 0 - 34.0 pg [facility] MCHC (RBC) [Mass/Vol] 33.1 g/dL 30.5 - 36.0 g/dL [facility] MCV (RBC) [Entitic vol] 90.4 fL 80.0 - 100.0 fL [facility] Monocytes (Bld) [#/Vol] 0.29 10*3/uL <0.87 k/uL [facility] Monocytes/100 WBC (Bld) 6.0 % C [facility] Neutrophils (Bld) [#/Vol] 2.87 10*3/uL 1.45 - 7.50 k/uL [facility] Neutrophils/100 WBC (Bld) 59.4 % [facility] Nucleated RBC (Bld) [#/Vol] <0.01 k/uL [facility] Nucleated RBC/100 WBC (Bld) [Ratio] 0.0 /100 WBC [facility] Platelet mean volume (Bld) [Entitic vol] 10.5 fL 9.0 - 12.7 fL [facility] Platelets (Bld) [#/Vol] 230 10*3/uL 150 - 400 k/uL [facility] RBC (Bld) [#/Vol] 4.68 10*6/uL 3.90 - 5.2 0 m/uL [facility] WBC (Bld) [#/Vol] 4.83 10*3/uL 3.70 - 11. 00 k/uL [facility] EMERGENCY REPORTon 2 EMERGENCY REPORT [facility] EMERGENCY ROOM REPORT NAME ACCOUNT SEX AGE ADMIT DISCHARGE PT MED. RECORD# NUMBER DATE DATE TYPE BERTO [id number] F 57 03/25/22 03/26/22 3 POLINA [id number] ROOM: ER DATE OF : 1965 DICTATING [...] and I believe that was done at [facility]. It was not done here. She really [...] Mando Coon DO 03/26/22 02:01 JOB #: [id number] Transcribed By: deuce 03/27/22 10:57 Electronically signed by: E-Sign: Dr. Mando Coon D.O. 03/29/22 19:20 Page 2 of 2 POLINA THOMSON Emergency Room Report Normal [facility] EMERGENCY REPORT [facility] EMERGENCY ROOM REPORT NAME ACCOUNT SEX AGE ADMIT DISCHARGE PT MED. RECORD# NUMBER DATE DATE TYPE BERTO [id number] F 57 03/25/22 03/26/22 3 POLINA [id number] ROOM: ER DATE OF : 1965 DICTATING [...] 10. Her physician is Dr. Graham in [place]. PAST MEDICAL HISTORY: Gastroesophageal reflux disease, irritable [...] motor or sensory deficits are noted. Hand nurse examiner are strong and symmetric. SKIN: Skin is [...] Mando Coon DO 03/25/22 22:48 JOB #: [id number] Transcribed By: am 03/27/22 08:32 Electronically signed by: E-Sign: Dr. Mando Coon D.O. 03/29/22 19:19 Page 2 of 2 POLINA THOMSON Emergency Room Report Normal [facility] CBC + DIFFon 03-26-2022 Baso # 0.00 x10EE3/UL Normal 0.00 - 0.10 [facility] Comment on above: Performed By: #### 2 93433 #### [facility],[address] [place] [address]39 Basophils/100 WBC (Bld) 0.2 % Normal 0.0 - 2.0 [facility] Comment on above: Performed By: #### 2 96807 #### [facility],[address] [place] [address] CBC + DIFF Normal [facility] Comment on above: Result Comment: CBC- COMPLETE BLOOD COUNT Performed By: #### 2 61521 #### [facility],[address] [place] [address] EO # 0.00 x10EE3/UL Normal 0.00 - 0.50 [facility] Comment on above: Performed By: #### 2 78869 #### [facility],[address] [place] [address] 13798 Eosinophils/100 WBC (Bld) 0.8 % Normal 0.0 - 7.0 [facility] Comment on above: Performed By: #### 2 24841 #### [facility],[address] [place], [place] [address] Erythrocyte distribution width (RBC) [Ratio] 12.8 % Normal 12.0 - 15.6 [facility] Comment on above: Performed By: #### 2 51716 #### [facility],[address] [place] [address] Hematocrit (Bld) [Volume fraction] 42.2 % Normal 34.0 - 46.0 [facility] Comment on above: Performed By: #### 2 18532 #### [facility],[address] [place] [address] Hemoglobin (Bld) [Mass/Vol] 14.4 g/dL Normal 12.0 - 16.0 [facility] Comment on above: Performed By: #### 2 45698 #### [facility],[address] [place] [address] Lymph # 0.50 x10EE3/UL Low 0.80 - 2.80 [facility] Comment on above: Performed By: #### 2 38185 #### [facility],[address] [place] [address] Lymphocytes/100 WBC (Bld) 7.3 % Low 20.0 - 45.0 [facility] Comment on above: Performed By: #### 2 79167 #### [facility],[address] [place] [address] MANUAL DIFF N/A Normal [facility] Comment on above: Performed By: #### 2 94487 #### [facility],[address] [place] [address] MCH (RBC) [Entitic mass] 30 pg Normal 27 - 33 [facility] Comment on above: Performed By: #### 2 87240 #### [facility],[address] [place] [address] MCHC 34 X10 3 Normal 32 - 36 [facility] Comment on above: Performed By: #### 2 28697 #### [facility],[address] [place], [place] [address] MCV (RBC) [Entitic vol] 89 fL Normal 80 - 99 [facility] Comment on above: Performed By: #### 2 88149 #### [facility],[address] [place] [address] [place] # 0.20 x10EE3/UL Normal 0.20 - 1.00 [facility] Comment on above: Performed By: #### 2 32966 #### [facility],[address] [place] [address] 94507 MONOS % 3.0 % Normal 0.0 - 10.0 [facility] Comment on above: Performed By: #### 2 78630 #### [facility],[address] [place] [address] 92311 Morphology Venancio (Bld) [Interp] N/A Normal [facility] Comment on above: Result Comment: {CD] Performed By: #### 2 73992 #### [facility],[address] [place] [address] 38597 Neut # 5.50 x10EE3/UL Normal 1.50 - 7.10 [facility] Comment on above: Performed By: #### 2 32556 #### [facility],[address] [place] [address] 02859 Neutrophils/100 WBC (Bld) 88.7 % High 46.0 - 76.0 [facility] Comment on above: Performed By: #### 2 83115 #### [facility],[address] [place] [address] 51240 PLATELET 227 x10EE3/UL Normal 150 - 450 [facility] Comment on above: Performed By: #### 2 44359 #### [facility],[address] [place] [address] 10583 Platelet mean volume (Bld) [Entitic vol] 8.2 fL Normal 6.6 - 10.5 [facility] Comment on above: Result Comment: AUTO MATED DIFFERENTIAL Performed By: #### 2 54558 #### [facility],[address] [place] [address] 49999 RBC 4.76 x 10EE6/UL Normal 4.10 - 5.30 [facility] Comment on above: Performed By: #### 2 66374 #### [facility],[address] [place] [address] 74023 WBC 6.2 x 10EE3/UL Normal 4.5 - 10.8 [facility] Comment on above: Performed By: #### 2 58763 #### [facility],[address] [place] [address] 98367 CMP with eGFRon 03-26-2022 AGE 57 years Normal [facility] Comment on above: Performed By: #### 2 93369 #### [facility],[address] [place] [address] 75335 Albumin [Mass/Vol] 4.0 g/dL Normal 3.4 - 5.0 [facility] Comment on above: Performed By: #### 2 47335 #### [facility],[address] [place] [address] 58616 Albumin/Globulin [Mass ratio] 1.3 {ratio} Normal 0.9 - 1.6 [facility] Comment on above: Performed By: #### 2 95812 #### [facility],[address] [place] [address] 78959 ALK PHOS 88 U/L Normal 46 - 116 [facility] Comment on above: Performed By: #### 2 48628 #### [facility],[address] [place] [address] 02020 ALT [Catalytic activity/Vol] 28 U/L Normal 14 - 59 [facility] Comment on above: Performed By: #### 2 82761 #### [facility],[address] [place] [address] 86268 Anion gap [Moles/Vol] 12 mmol/L Normal 10 - 20 [facility] Comment on above: Performed By: #### 2 16235 #### [facility],[address] [place] [address] 32464 AST [Catalytic activity/Vol] 20 U/L Normal 13 - 39 [facility] Comment on above: Performed By: #### 2 71829 #### [facility],[address] [place] [address] 18900 B/C RATIO 17 ratio Normal 0 - 30 [facility] Comment on above: Performed By: #### 2 55232 #### [facility],[address] [place] [address] 03783 Bilirubin [Mass/Vol] 0.8 mg/dL Normal 0.2 - 1.0 [facility] Comment on above: Performed By: #### 2 04570 #### [facility],[address] [place] [address] 56127 Calcium [Mass/Vol] 9.0 mg/dL Normal 8.5 - 10.1 [facility] Comment on above: Performed By: #### 2 80829 #### [facility],[address] [place] [address] 26753 Chloride [Moles/Vol] 101 mmol/L Normal 98 - 107 [facility] Comment on above: Performed By: #### 2 70180 #### [facility],[address] [place] [address] 31809 CMP with eGFR Normal [facility] Comment on above: Result Comment: COMP REHENSIVE METABOLIC PANEL Performed By: #### 2 52108 #### [facility],[address] [place] [address] 64143 CO2 [Moles/Vol] 27.8 mmol/L Normal 21.0 - 32.0 [facility] Comment on above: Performed By: #### 2 15070 #### [facility],[address] [place] [address] 41267 Creatinine [Mass/Vol] 1.03 mg/dL High 0.55 - 1.02 [facility] Comment on above: Performed By: #### 2 71155 #### [facility],[address] [place] [address] 11590 eGFR 56 ML/MINUTE Low 60 - 999 [facility] Comment on above: Performed By: #### 2 98218 #### [facility],[address] [place] [address] 80053 GFR/1.73 sq M.predicted among non-blacks MDRD (S/P/Bld) [Vol rate/Area] mL/min/{1.73_m2} Normal 60 - 999 [facility] Comment on above: Result Comment: ACCO RDING TO THE NATIONAL KIDNEY DISEASE EDUCATION PROGRAM(NKDE), A NORMAL eGFR IS A VALUE GREATER THAN OR EQUAL TO 60 ML/MIN/1.73 SQ METERS. CHRONIC KIDNEY DISEASE: <60mL/MIN/1.73 SQ METERS KIDNEY FAILURE: <15mL/MIN/1.73 SQ METERS THIS TEST SHOULD ONLY BE USED FOR PATIENTS 18 YEARS OF AGE AND OLDER. Performed By: #### 2 76070 #### [facility],[address] [place] [address] 06127 Globulin (S) [Mass/Vol] 3.2 g/dL Normal 1.5 - 3.8 [facility] Comment on above: Performed By: #### 2 96191 #### [facility],[address] [place] [address] 00823 Glucose [Mass/Vol] 107 mg/dL High 74 - 106 [facility] Comment on above: Performed By: #### 2 62337 #### [facility],[address] [place] [address] 36598 Potassium [Moles/Vol] 3.8 mmol/L Normal 3.5 - 5.1 [facility] Comment on above: Performed By: #### 2 00836 #### [facility],[address] [place] [address] 11893 Protein [Mass/Vol] 7.2 g/dL Normal 6.4 - 8.2 [facility] Comment on above: Performed By: #### 2 95611 #### [facility],[address] [place] [address] 56165 Sodium [Moles/Vol] 137 mmol/L Normal 136 - 145 [facility] Comment on above: Performed By: #### 2 60575 #### [facility],[address] [place] [address] 95526 Urea nitrogen [Mass/Vol] 18 mg/dL Normal 7 - 18 [facility] Comment on above: Performed By: #### 2 [id number] #### [facility],[address] [place], [place] [id number] CT ABDOMEN/PELVIS Won 2021 CT ABDOMEN/PELVIS [address] [address] Patient: POLINA THOMSON Phone#: : 1965 Age: 57 Gender: F Pt. Type: ER Account: [id number] Location: [facility] Ordering: MANDO COON Exam Date: 03/25/202223:15 Family Phys: Charge Code: 203054 Physician: Bertie Order #: [id number] DLP Dose#: 14.20 PROCEDURE: CT ABDOMEN/PELVIS WITH [...] 57 Gender: F Pt. Type: ER Account: [id number] Location: 052 Ordering: MANDO COON Exam Date: 03/25/202223:15 Family Phys: Charge Code: 136859 Physician: Bertie Order #: [id number] DLP Dose#: 14.20 BONES: Normal. No bony lesion or fracture. LUNG BASES: Normal. No visible pulmonary or pleural disease. OTHER: Negative. CONCLUSION: 1. Findings consistent with enteritis. 2. Horseshoe kidney is present. Dictated by: Alexandria Brennan MD on 03/26/2022 at 9:38 Approved by: Alexandria Brennan MD on 03/26/2022 at 9:41 Normal [facility] CT CHEST (PE PROTOCOL)on CT CHEST (PE PROTOCOL) [place] [address] Patient: POLINA THOMSON Phone#: : 1965 Age: 57 Gender: F Pt. Type: ER Account: [id number] Location: 052 Ordering: MANDO COON Exam Date: 03/25/202223:15 Family Phys: Charge Code: 289469 Physician: Bertie Order #: [id number] DLP Dose#: 5.30 PROCEDURE: CT CHEST WITH [...] 57 Gender: F Pt. Type: ER Account: [id number] Location: [facility] Ordering: MANDO COON Exam Date: 03/25/2022/23:15 Family Phys: Charge Code: 722702 Physician: Bertie Order #: [id number] DLP Dose#: 5.30 Approved by: Alexandria Brennan MD on 03/26/2022 at 9:44 Normal [facility] D-DIMER, QUANTITATIVEon 03-16 D-DIMER QUANT 242 ng/ml High 0 - 230 [facility] Comment on above: Performed By: #### 2 08001 #### [facility],[address] [place] [address] D-DIMER, QUANTITATIVE Normal [facility] Comment on above: Result Comment: PERCY T D-DIMER Performed By: #### 2 [id number] #### [facility],[address] [place] [address] LIPASEon 03-26-2022 Lipase [Catalytic activity/Vol] 123.0 U/L Normal 73.0 - 393 [facility] Comment on above: Performed By: #### 2 33008 #### [facility],[address] [place] [address] NT-proBNPon 03-26-2022 Natriuretic peptide B (Bld) [Mass/Vol] 59 pg/mL Normal 0 - 125 [facility] Comment on above: Performed By: #### 2 21260 #### [facility],[address] [place] [address] TROPONIN I, HIGH SENSITIVITY on 03-26-2022 HS TROPONIN 4.9 pg/mL Normal 0.0 - 51.4 [facility] Comment on above: Performed By: #### 2 53266 #### [facility],[address] [place] [address] URINALYSIS WITH MICROSCOPYon 03-26-2022 Amorphous NONE Normal [facility] Comment on above: Performed By: #### 2 01563 #### [facility],[address] [place] [address] Bacteria TRACE Normal [facility] Comment on above: Performed By: #### 2 57333 #### [facility],[address] [place] [address] Bilirubin Ql (U) Negative Normal NORMAL: NEGATIVE [facility] Comment on above: Performed By: #### 2 68618 #### [facility],[address] [place] [address] Casts NONE Normal [facility] Comment on above: Performed By: #### 2 01756 #### [facility],[address] [place] [address] Clarity (U) CLEAR Normal NORMAL: CLEAR [facility] Comment on above: Performed By: #### 2 14053 #### [facility],[address] [place], [place] [id number] Color (U) p.yel Normal NORMAL: YELLOW [facility] Comment on above: Performed By: #### 2 40208 #### [facility],[address] [place], [place] [id number] Crystals LM Nom (Urine sed) NONE Normal [facility] Comment on above: Performed By: #### 2 33350 #### [facility],[address] [place] [address] Epi Cells FEW Normal [facility] Comment on above: Performed By: #### 2 37011 #### [facility],[address] [place] [address] Glucose Ql (U) NORM Normal NORMAL: NORMAL [facility] Comment on above: Performed By: #### 2 39819 #### [facility],[address] [place] [address] Hemoglobin Ql (U) Negative Normal NORMAL: NEGATIVE [facility] Comment on above: Performed By: #### 2 08858 #### [facility],[address] [place] [address] Ketone Negative Normal NORMAL: NEGATIVE [facility] Comment on above: Performed By: #### 2 58165 #### [facility],[address] [place] [address] Leukocytes 100 Abnormal NORMAL: NEGATIVE [facility] Comment on above: Result Comment: URIN E MICROSCOPIC Performed By: #### 2 63090 #### [facility],[address] [place] [address] Mucous NONE Normal [facility] Comment on above: Performed By: #### 2 04424 #### [facility],[address] [place] [address] Nitrite Ql (U) Negative Normal NORMAL: NEGATIVE [facility] Comment on above: Performed By: #### 2 62637 #### [facility],[address] [place] [address] 17194 pH (U) 7 [pH] Normal NORMAL: 5.0-8.0 [facility] Comment on above: Performed By: #### 2 17141 #### [facility],[address] [place] [address] 17871 Protein Ql (U) Negative Normal NORMAL: NEGATIVE [facility] Comment on above: Performed By: #### 2 73446 #### [facility],[address] [place] [address] 401[address] Rbc NONE Normal 0-3 / hpf [facility] Comment on above: Performed By: #### 2 71178 #### [facility],[address] [place] [address] Sp [place] 1.010 Normal NORMAL: 1.010-1.030 [facility] Comment on above: Performed By: #### 2 12707 #### [facility],[address] [place] [address] Specimen Type UNSPECIFIED Normal [facility] Comment on above: Performed By: #### 2 06229 #### [facility],[address] [place] [address] URINALYSIS WITH MICROSCOPY Normal [facility] Comment on above: Result Comment: URIN ALYSIS Performed By: #### 2 99469 #### [facility],[address] [place] [address] Urobilinog NORM Normal NORMAL: NORMAL [facility] Comment on above: Performed By: #### 2 10461 #### [facility],[address] [place] [address] Wbc 1-5 Normal 0-5 / hpf [facility] Comment on above: Performed By: #### 2 85181 #### [facility],[address] [place] [address] Yeast NONE Normal [facility] Comment on above: Performed By: #### 2 22062 #### [facility],[address] [place] [address] CORONAVIRUS PCR - [facility] 06-30-2021 SARS-CoV-2 (COVID-19) RNA VIJAY+probe Ql (Unsp spec) Negative Normal NORMAL: NEGATIVE [facility] Comment on above: Performed By: #### 2 13669 #### [facility],[address] [place], [place] [id number] SEND TO ? YES Normal [facility] Comment on above: Result Comment: MICHELLE CONDES FAXED TO INFECTION CONTROL. SARS-CoV-2 THIS TEST IS BEING USED UNDER THE FDA EUA PROCEDURE. THIS ASSAY HAS BEEN VALIDATED IN THE [facility] FOR USE WITH NASOPHARYNGEAL SPECIMENS IN [facility]. INTERPRETIVE DATA LABORATORY TEST RESULTS SHOULD ALWAYS [...] PUBLIC HEALTH AUTHORITIES. 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 [facility] Comment on above: Result Comment: Posi tive for This test was developed and its performance characteristics determined by [facility] [place]. This test has been authorized by FDA [...] developed and its performance characteristics determined by [facility] [place]. This test has been authorized by FDA [...] developed and its performance characteristics determined by [facility] [place]. This test has been authorized by FDA [...] developed and its performance characteristics determined by [facility] [place]. This test has been authorized by FDA under an Emergency Use Authorization (EUA). This test has been validated in accordance with the FDA's Guidance Document Policy for Diagnostics Testing in Laboratories Certified to Perform High Complexity Testing under CLIA prior to Emergency use Authorization for Coronavirus Disease 2019 during the Public Health Emergency issued on October 14, 2019. 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 Willie Adams MD Work Phone: [facility] 05-16-2025 07:37-0400 Body mass index (BMI) [Ratio] 31.4 kg/m2 Dr. Willie Adams MD Work Phone: [facility] 05-16-2025 07:37-0400 Body temperature 97.6 [degF] Dr. Willie Adams MD Work Phone: [facility] 05-16-2025 07:37-0400 Body weight 91.[address] Willie Adams MD Work Phone: [facility] 05-16-2025 07:37-0400 Diastolic blood pressure 80 mm[Hg] Dr. Willie Adams MD Work Phone: [facility] 05-16-2025 07:37-0400 Heart rate 63 /min Dr. Wlilie Adams MD Work Phone: [facility] 05-16-2025 07:37-0400 Respiratory rate 14 /min Dr. Willie Adams MD Work Phone: [facility] 05-16-2025 07:37-0400 SaO2% (BldA) [Mass fraction] 98 % Dr. Willie Adams MD Work Phone: [facility] 05-16-2025 07:37-0400 Systolic blood pressure 120 mm[Hg] Dr. Willie Adams MD Work Phone: [facility] 05-01-2025 16:00-0400 Body height 170.[address] Willie Adams MD Work Phone: [facility] 05-01-2025 16:00-0400 Body weight 91.[address] Willie Adams MD Work Phone: [facility] 04-02-2025 15:46-0400 Body height 170.[address] Willie Adams MD Work Phone: [facility] 04-02-2025 15:46-0400 Body weight 91.[address] Willie Adams MD Work Phone: [facility] 02-14-2025 17:38-0400 Body height 170.[address] Alejandrina Graham MD Work Phone: [facility] 02-14-2025 17:38-0400 Body mass index (BMI) [Ratio] 31.1 kg/m2 Dr. Alejandrina Graham MD Work Phone: 6(871)584-607454 [place] [address] 02-14-2025 17:38-0400 Body temperature 97 [degF] Dr. Alejandrina Graham MD Work Phone: 1(840)287-443254 [place] [address] 02-14-2025 17:38-0400 Body weight 90.[address] Alejandrina Graham MD Work Phone: 2(938)723-886354 [place] [address] 02-14-2025 17:38-0400 Diastolic blood pressure 70 mm[Hg] Dr. Alejandrina Graham MD Work Phone: 8(783)042-667254 [place] [address] 02-14-2025 17:38-0400 Heart rate 59 /min Dr. Alejandrina Graham MD Work Phone: 0(420)708-527954 [place] [address] 02-14-2025 17:38-0400 Respiratory rate 16 /min Dr. Alejandrina Graham MD Work Phone: 6(982)490-044254 [place] [address] 02-14-2025 17:38-0400 SaO2% (BldA) [Mass fraction] 97 % Dr. Alejandrina Graham MD Work Phone: 2(815)428-685254 [place] [address] 02-14-2025 17:38-0400 Systolic blood pressure 110 mm[Hg] Dr. Alejandrina Graham MD Work Phone: 0(666)500-097554 [place] [address] 02-12-2025 08:01-0400 Body height 170.[address] Alejandrina Graham MD Work Phone: 0(176)956-273354 [place] [address] 02-12-2025 07:59-0400 Body mass index (BMI) [Ratio] 31.4 kg/m2 Dr. Alejandrina Graham MD Work Phone: 8(219)532-851954 [place] [address] 02-12-2025 07:59-0400 Body weight 90.[address] Alejandrina Graham MD Work Phone: 4(561)493-784254 [place] [address] 02-12-2025 07:59-0400 Diastolic blood pressure 71 mm[Hg] Dr. Alejandrina Graham MD Work Phone: 5(674)876-550554 [place] [address] 02-12-2025 07:59-0400 Systolic blood pressure 123 mm[Hg] Dr. Alejandrina Graham MD Work Phone: [facility] 01-30-2025 16:00-0400 Body temperature 97 [degF] Alma Atanasov PA Work Phone: [facility] 01-30-2025 16:00-0400 Diastolic blood pressure 67 mm[Hg] Alma Atanasov PA Work Phone: 7(037)418-721287 [place] [address] 01-30-2025 16:00-0400 Heart rate 50 /min Alma Atanasov PA Work Phone: 2(058)911-173087 [place] [address] 01-30-2025 16:00-0400 Respiratory rate 18 /min Alma Atanasov PA Work Phone: [facility] 01-30-2025 16:00-0400 SaO2% (BldA) [Mass fraction] 98 % Alma Atanasov PA Work Phone: 8(389)665-244787 [place] [address] 01-30-2025 16:00-0400 Systolic blood pressure 109 mm[Hg] Alma Atanasov PA Work Phone: [facility] 01-30-2025 12:39-0400 Body height 170.18 cm Alma Atanasov PA Work Phone: [facility] 01-30-2025 12:39-0400 Body mass index (BMI) [Ratio] 30.7 kg/m2 Alma Atanasov PA Work Phone: 4(760)935-744687 [place] [address] 01-30-2025 12:39-0400 Body weight 89 kg Alma Atanasov PA Work Phone: [facility] 01-12-2025 14:06-0400 Body height 170.[address] Alejandrina Graham MD Work Phone: [facility] 01-12-2025 14:06-0400 Body mass index (BMI) [Ratio] 31.5 kg/m2 Dr. Alejandrina Graham MD Work Phone: [facility] 01-12-2025 14:06-0400 Body weight 91.[address] Alejandrina Graham MD Work Phone: 8(143)490-502754 [place] [address] 01-12-2025 14:06-0400 Diastolic blood pressure 69 mm[Hg] Dr. Alejandrina Graham MD Work Phone: 3(900)953-714854 [place] [address] 01-12-2025 14:06-0400 Systolic blood pressure 115 mm[Hg] Dr. Alejandrina Graham MD Work Phone: 0(711)257-937554 [place] [address] 11-29-2024 07:14-0400 Body temperature 97.8 [degF] Dr. Alejandrina Graham MD Work Phone: 8(675)744-528654 [place] [address] 11-29-2024 07:14-0400 Diastolic blood pressure 65 mm[Hg] Dr. Alejandrina Graham MD Work Phone: 8(628)788-334954 [place] [address] 11-29-2024 07:14-0400 Heart rate 53 /min Dr. Alejandrina Graham MD Work Phone: 2(311)843-640154 [place] [address] 11-29-2024 07:14-0400 Respiratory rate 16 /min Dr. Alejandrina Graham MD Work Phone: 9(993)515-687354 [place] [address] 11-29-2024 07:14-0400 SaO2% (BldA) [Mass fraction] 94 % Dr. Alejandrina Graham MD Work Phone: 9(779)406-883954 [place] [address] 11-29-2024 07:14-0400 Systolic blood pressure 114 mm[Hg] Dr. Alejandrina Graham MD Work Phone: 4(062)200-250354 [place] [address] 11-29-2024 05:40-0400 Body height 170.[address] Alejandrina Graham MD Work Phone: 3(124)847-892654 [place] [address] 11-29-2024 05:40-0400 Body mass index (BMI) [Ratio] 31.1 kg/m2 Dr. Alejandrina Graham MD Work Phone: 9(937)025-149154 [place] [address] 11-29-2024 05:40-0400 Body weight [address] Alejandrina Graham MD Work Phone: 8(227)124-639554 [place] [address] 11-23-2024 15:14-0400 Body mass index (BMI) [Ratio] 30 kg/m2 Dr. Alejandrina Graham MD Work Phone: 6(117)599-094354 [place] [address] 11-23-2024 15:14-0400 Body weight 87.[address] Alejandrina Graham MD Work Phone: 5(047)723-214354 [place] [address] 11-23-2024 15:14-0400 Diastolic blood pressure 81 mm[Hg] Dr. Alejandrina Graham MD Work Phone: 4(437)730-861554 [place] [address] 11-23-2024 15:14-0400 Systolic blood pressure 133 mm[Hg] Dr. Alejandrina Graham MD Work Phone: 4(061)669-131954 [place] [address] 11-09-2024 08:06-0400 Body height 170.[address] Alejandrina Graham MD Work Phone: 4(303)887-146554 [place] [address] 11-09-2024 08:06-0400 Body mass index (BMI) [Ratio] 30.7 kg/m2 Dr. Alejandrina Graham MD Work Phone: 0(457)778-641154 [place] [address] 11-09-2024 08:06-0400 Body weight 89.[address] Alejandrina Graham MD Work Phone: 5(740)417-656654 [place] [address] 11-09-2024 08:06-0400 Diastolic blood pressure 80 mm[Hg] Dr. Alejandrina Graham MD Work Phone: 8(566)982-180354 [place] [address] 11-09-2024 08:06-0400 Systolic blood pressure 122 mm[Hg] Dr. Alejandrina Graham MD Work Phone: 7(965)171-287654 [place] [address] 11-08-2024 17:55-0400 Body mass index (BMI) [Ratio] 30.8 kg/m2 Dr. Alejandrina Graham MD Work Phone: 3(118)166-214554 [place] [address] 11-08-2024 17:55-0400 Body temperature 97.4 [degF] Dr. Alejandrina Graham MD Work Phone: 4(979)089-527354 [place] [address] 11-08-2024 17:55-0400 Body weight 89.[address] Alejandrina Graham MD Work Phone: [facility] 11-08-2024 17:55-0400 Diastolic blood pressure 80 mm[Hg] Dr. Alejandrina Graham MD Work Phone: 6(025)204-919777 [place] [address] 11-08-2024 17:55-0400 Heart rate 52 /min Dr. Alejandrina Graham MD Work Phone: 9(235)003-069154 [place] [address] 11-08-2024 17:55-0400 Respiratory rate 16 /min Dr. Alejandrina Graham MD Work Phone: 0(611)008-503454 [place] [address] 11-08-2024 17:55-0400 SaO2% (BldA) [Mass fraction] 99 % Dr. Alejandrina Graham MD Work Phone: 0(158)987-113854 [place] [address] 11-08-2024 17:55-0400 Systolic blood pressure 122 mm[Hg] Dr. Alejandrina Graham MD Work Phone: 5(916)860-573054 [place] [address] 06-26-2024 08:28-0500 Body mass index (BMI) [Ratio] 29.6 kg/m2 Alejandrina Graham MD Work Phone: [facility] 06-26-2024 08:28-0500 Body weight 85.73 kg Alejandrina Graham MD Work Phone: 7(278)278-992119 [place] [address] 06-26-2024 08:28-0500 Diastolic blood pressure 74 mm[Hg] Alejandrina Graham MD Work Phone: 4(624)294-176419 [place] [address] 06-26-2024 08:28-0500 Heart rate 56 /min Alejandrina Graham MD Work Phone: [facility] 06-26-2024 08:28-0500 Respiratory rate 16 /min Alejandrina Graham MD Work Phone: [facility] 06-26-2024 08:28-0500 Systolic blood pressure 130 mm[Hg] Alejandrina Graham MD Work Phone: [facility] 04-05-2024 09:34-0400 Body mass index (BMI) [Ratio] 29.14 kg/m2 Laurel Murry APRN.CNP Work Phone: [facility] 04-05-2024 09:34-0400 Body weight 84.4 kg Laurel Jeanmarie PRINCIPAL SECURITY ARCHITECT.LEVEL VIAL GRINDER Work Phone: [facility] 04-05-2024 09:34-0400 Diastolic blood pressure 76 mm[Hg] Laurel Jeanmarie PRINCIPAL SECURITY ARCHITECT.LEVEL VIAL GRINDER Work Phone: [facility] 04-05-2024 09:34-0400 Heart rate 65 /min Laurel Jeanmarie PRINCIPAL SECURITY ARCHITECT.LEVEL VIAL GRINDER Work Phone: [facility] 04-05-2024 09:34-0400 SaO2% (BldA) [Mass fraction] 98 % Laurel Jeanmarie PRINCIPAL SECURITY ARCHITECT.LEVEL VIAL GRINDER Work Phone: [facility] 04-05-2024 09:34-0400 Systolic blood pressure 122 mm[Hg] Laurel Jeanmarie PRINCIPAL SECURITY ARCHITECT.LEVEL VIAL GRINDER Work Phone: [facility] 01-05-2024 08:50-0400 Body mass index (BMI) [Ratio] 28.35 kg/m2 Laurel Jeanmarie PRINCIPAL SECURITY ARCHITECT.LEVEL VIAL GRINDER Work Phone: [facility] 01-05-2024 08:50-0400 Body weight 82.1 kg Laurel Jeanmarie PRINCIPAL SECURITY ARCHITECT.LEVEL VIAL GRINDER Work Phone: [facility] 01-05-2024 08:50-0400 Diastolic blood pressure 68 mm[Hg] Laurel Jeanmarie PRINCIPAL SECURITY ARCHITECT.LEVEL VIAL GRINDER Work Phone: [facility] 01-05-2024 08:50-0400 Heart rate 59 /min Laurel Jeanmarie PRINCIPAL SECURITY ARCHITECT.LEVEL VIAL GRINDER Work Phone: [facility] 01-05-2024 08:50-0400 SaO2% (BldA) [Mass fraction] 98 % Laurel Jeanmarie PRINCIPAL SECURITY ARCHITECT.LEVEL VIAL GRINDER Work Phone: [facility] 01-05-2024 08:50-0400 Systolic blood pressure 100 mm[Hg] Laurel Jeanmarie PRINCIPAL SECURITY ARCHITECT.LEVEL VIAL GRINDER Work Phone: [facility] 09-22-2023 09:05-0500 Body weight 79.88 kg Laurel Jeanmarie PRINCIPAL SECURITY ARCHITECT.LEVEL VIAL GRINDER Work Phone: [facility] 09-22-2023 09:05-0500 Diastolic blood pressure 78 mm[Hg] Laurel Jeanmarie PRINCIPAL SECURITY ARCHITECT.LEVEL VIAL GRINDER Work Phone: [facility] 09-22-2023 09:05-0500 Heart rate 66 /min Laurel Jeanmarie PRINCIPAL SECURITY ARCHITECT.LEVEL VIAL GRINDER Work Phone: [facility] 09-22-2023 09:05-0500 Respiratory rate 18 /min Laurel Jeanmarie PRINCIPAL SECURITY ARCHITECT.LEVEL VIAL GRINDER Work Phone: [facility] 09-22-2023 09:05-0500 SaO2% (BldA) [Mass fraction] 99 % Laurel Jeanmarie PRINCIPAL SECURITY ARCHITECT.LEVEL VIAL GRINDER Work Phone: [facility] 09-22-2023 09:05-0500 Systolic blood pressure 130 mm[Hg] Laurel Jeanmarie PRINCIPAL SECURITY ARCHITECT.LEVEL VIAL GRINDER Work Phone: [facility] 06-23-2023 09:19-0500 Body weight 79.38 kg Laurel Jeanmarie PRINCIPAL SECURITY ARCHITECT.LEVEL VIAL GRINDER Work Phone: [facility] 06-23-2023 09:19-0500 Diastolic blood pressure 82 mm[Hg] Laurel Jeanmarie PRINCIPAL SECURITY ARCHITECT.LEVEL VIAL GRINDER Work Phone: [facility] 06-23-2023 09:19-0500 Heart rate 59 /min Laurel Jeanmarie PRINCIPAL SECURITY ARCHITECT.LEVEL VIAL GRINDER Work Phone: [facility] 06-23-2023 09:19-0500 SaO2% (BldA) [Mass fraction] 99 % Laurel Jeanmarie PRINCIPAL SECURITY ARCHITECT.LEVEL VIAL GRINDER Work Phone: [facility] 06-23-2023 09:19-0500 Systolic blood pressure 120 mm[Hg] Laurel Jeanmarie PRINCIPAL SECURITY ARCHITECT.LEVEL VIAL GRINDER Work Phone: [facility] 02-15-2023 14:13-0400 Body temperature 97.7 [degF] Laurel Jeanmarie PRINCIPAL SECURITY ARCHITECT.LEVEL VIAL GRINDER Work Phone: [facility] 02-15-2023 14:13-0400 Body weight 78.47 kg Laurel Jeanmarie PRINCIPAL SECURITY ARCHITECT.LEVEL VIAL GRINDER Work Phone: [facility] 02-15-2023 14:13-0400 Diastolic blood pressure 80 mm[Hg] Laurel Jeanmarie PRINCIPAL SECURITY ARCHITECT.LEVEL VIAL GRINDER Work Phone: [facility] 02-15-2023 14:13-0400 Heart rate 70 /min Laurel Jeanmarie PRINCIPAL SECURITY ARCHITECT.LEVEL VIAL GRINDER Work Phone: [facility] 02-15-2023 14:13-0400 Respiratory rate 16 /min Laurel Jeanmarie PRINCIPAL SECURITY ARCHITECT.LEVEL VIAL GRINDER Work Phone: [facility] 02-15-2023 14:13-0400 Systolic blood pressure 120 mm[Hg] Laurel Jeanmarie PRINCIPAL SECURITY ARCHITECT.LEVEL VIAL GRINDER Work Phone: [facility] 12-15-2022 13:16-0400 Body height 170.2 cm Doris Sorto MD Work Phone: [facility] 12-15-2022 13:16-0400 Body temperature 97.3 [degF] oDris Sorto MD Work Phone: [facility] 12-15-2022 13:16-0400 Body weight 81.92 kg Doris Sorto MD Work Phone: [facility] 12-15-2022 13:16-0400 Diastolic blood pressure 72 mm[Hg] Doris Sorto MD Work Phone: [facility] 12-15-2022 13:16-0400 Heart rate 72 /min Doris Sorto MD Work Phone: [facility] 12-15-2022 13:16-0400 SaO2% (BldA) [Mass fraction] 95 % Doris Sorto MD Work Phone: [facility] 12-15-2022 13:16-0400 Systolic blood pressure 130 mm[Hg] Doris Sorto MD Work Phone: [facility] 12-15-2022 10:52-0400 Body height 170.2 cm Alejandrina Graham MD Work Phone: [facility] 12-15-2022 10:52-0400 Body temperature 97.81 [degF] Alejandrina Graham MD Work Phone: [facility] 12-15-2022 10:52-0400 Body weight 81.65 kg Alejandrina Graham MD Work Phone: [facility] 12-15-2022 10:52-0400 Diastolic blood pressure 60 mm[Hg] Alejandrina Graham MD Work Phone: [facility] 12-15-2022 10:52-0400 Heart rate 60 /min Alejandrina Graham MD Work Phone: [facility] 12-15-2022 10:52-0400 Respiratory rate 14 /min Alejandrina Graham MD Work Phone: [facility] 12-15-2022 10:52-0400 SaO2% (BldA) [Mass fraction] 99 % Alejandrina Graham MD Work Phone: [facility] 12-15-2022 10:52-0400 Systolic blood pressure 130 mm[Hg] Alejandrina Graham MD Work Phone: [facility] 07-25-2022 08:30-0500 Body temperature 98.2 [degF] Esha Praisler-Wood PRINCIPAL SECURITY ARCHITECT.LEVEL VIAL GRINDER Work Phone: [facility] 07-25-2022 08:30-0500 Body weight 82.1 kg Esha Praisler-Wood PRINCIPAL SECURITY ARCHITECT.LEVEL VIAL GRINDER Work Phone: [facility] 07-25-2022 08:30-0500 Diastolic blood pressure 70 mm[Hg] Esha Praisler-Wood PRINCIPAL SECURITY ARCHITECT.LEVEL VIAL GRINDER Work Phone: [facility] 07-25-2022 08:30-0500 Heart rate 76 /min Esha Praisler-Wood PRINCIPAL SECURITY ARCHITECT.LEVEL VIAL GRINDER Work Phone: [facility] 07-25-2022 08:30-0500 Respiratory rate 16 /min Esha Praisler-Wood PRINCIPAL SECURITY ARCHITECT.LEVEL VIAL GRINDER Work Phone: [facility] 07-25-2022 08:30-0500 SaO2% (BldA) [Mass fraction] 96 % Esha Praisler-Wood PRINCIPAL SECURITY ARCHITECT.LEVEL VIAL GRINDER Work Phone: [facility] 07-25-2022 08:30-0500 Systolic blood pressure 122 mm[Hg] Esha Praisler-Wood PRINCIPAL SECURITY ARCHITECT.LEVEL VIAL GRINDER Work Phone: [facility] 06-09-2022 08:05-0400 Body height 170.2 cm Alejandrina Graham MD Work Phone: [facility] 06-09-2022 08:05-0400 Body temperature 99.39 [degF] Alejandrina Graham MD Work Phone: [facility] 06-09-2022 08:05-0400 Body weight 81.19 kg Alejandrina Graham MD Work Phone: [facility] 06-09-2022 08:05-0400 Diastolic blood pressure 70 mm[Hg] Alejandrina Graham MD Work Phone: [facility] 06-09-2022 08:05-0400 Heart rate 67 /min Alejandrina Graham MD Work Phone: [facility] 06-09-2022 08:05-0400 Respiratory rate 12 /min Alejandrina Graham MD Work Phone: [facility] 06-09-2022 08:05-0400 SaO2% (BldA) [Mass fraction] 99 % Alejandrina Graham MD Work Phone: [facility] 06-09-2022 08:05-0400 Systolic blood pressure 110 mm[Hg] Alejandrina Graham MD Work Phone: [facility] Encounters Encounter Date Encounter Type Care Provider Facility Start: 06-20-2025 ambulatory Willie Nelson ty:[facility] Start: 06-19-2025 End: 06-19-2025 Emergency department patient visit Carolina Navarro Facility:[facility] Start: 05-16-2025 End: 05-16-[address] Willie Adams MD -Laboratory Work Phone: Start: 05-16-2025 End: 05-16-[address] Willie Adams MD Work Phone: [facility] Start: 05-16-2025 End: 05-16-2025 ambulatory Willie Adams Facility:[facility] Start: 05-01-2025 End: 05-15-[address] Willie Adams MD -Nutritional Services Work Phone: Start: 05-01-2025 End: 05-15-[address] Willie Adams MD Work Phone: -Nutritional Services Start: 04-26-2025 End: 04-26-[address] Willie Adams MD Work Phone: -Laboratory Start: 04-26-2025 End: 04-26-2025 Patient encounter procedure Alma Melton PA -Laboratory Work Phone: Start: 04-26-2025 End: 04-26-2025 ambulatory Alma Melton Facility:[facility] Start: 04-02-2025 End: 04-15-[address] Willie Adams MD -Nutritional Services Work Phone: Start: 04-02-2025 End: 04-15-[address] Willie Adams MD Work Phone: -Nutritional Services Start: 02-23-2025 Encounter for other preprocedural examination Gayatri Weinstein [facility] Start: 02-14-2025 End: 02-14-[address] Willie Adams MD -[facility] Work Phone: Start: 02-14-2025 End: 02-14-[address] Alejandrina Graham MD Work Phone: -[facility] Start: 02-13-2025 End: 02-13-[address] Alejandrina Graham MD Work Phone: -Outpatient Breast [facility] Start: 02-13-2025 End: 02-13-2025 Patient encounter procedure Fadia AGUSTIN -Outpatient Breast Imaging Work Phone: Start: 02-12-2025 End: 02-12-[address] Gayatri Weinstein MD -[facility] Work Phone: Start: 02-12-2025 End: 02-13-[address] Alejandrina Graham MD Work Phone: -[facility] Start: 01-30-2025 End: 01-30-2025 Admission to same day surgery center Dr. Gayatri Weinstein MD -[facility] Start: 01-30-2025 End: 03-02-2025 ambulatory Alma KELLY Work Phone: [facility] Work Phone: Start: 01-30-2025 ambulatory Willie Adams Franciscoi ty:[facility] Start: 01-30-2025 Non-patient / Non-visit Dr. Rosalina Weinstein MD -[facility] Start: 01-23-2025 End: 01-23-2025 ambulatory Alma KELLY Work Phone: [facility] Work Phone: Start: 01-23-2025 End: 01-23-2025 Patient encounter procedure Alma KELLY -[facility] Work Phone: Start: 01-22-2025 End: 01-23-2025 ambulatory Alma Melton Facility:[facility] Start: 01-22-2025 End: 01-22-2025 Non-patient / Non-visit Dr. Jamari Michael MD -[facility] Work Phone: Start: 01-12-2025 End: 01-12-[address] Alejandrina Graham MD Work Phone: [facility] Work Phone: Start: 01-12-2025 End: 01-12-[address] Gayatri Weinstein MD -[facility] Work Phone: Start: 12-28-2024 End: 12-28-2024 Patient encounter procedure Alma KELLY -[facility] Work Phone: Start: 12-28-2024 End: 12-28-[address] Alejandrina Graham MD Work Phone: [facility] Work Phone: Start: 12-13-2024 End: 12-13-2024 Patient encounter procedure Alma KELLY -[facility] Work Phone: Start: 12-13-2024 End: 12-13-2024 ambulatory Alma Josesterling Facility:[facility] Start: 11-29-2024 ambulatory Adria Cisse Facility :[facility] Start: 11-29-2024 Non-patient / Non-visit Adria Frie nc DO -[facility] Start: 11-29-2024 End: 11-29-2024 Admission to same day surgery center Adria Cisse DO -Endoscopy Work Phone: Start: 11-29-2024 End: 11-29-[address] Alejandrina Graham MD Work Phone: [facility] Work Phone: Start: 11-23-2024 End: 11-23-[address] Alejandrina Graham MD Work Phone: [facility] Work Phone: Start: 11-23-2024 End: 11-23-2024 Patient encounter procedure Sharon Whiting NP-C -Laboratory, Specimen Work Phone: Start: 11-23-2024 End: 11-23-2024 Patient encounter procedure Sharon Whiting ROTARY 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-C -[facility] Work Phone: Start: 11-23-2024 End: 11-23-2024 ambulatory [facility] Facility:[facility] Start: 11-23-2024 End: 11-23-2024 ambulatory [facility] Facility:[facility] Start: 11-13-2024 End: 11-13-[address] Alejandrina Graham MD Work Phone: [facility] Work Phone: Start: 11-13-2024 End: 11-13-2024 Patient encounter procedure Fadia AGUSTIN -Ultrasound, [facility] Work Phone: Start: 11-13-2024 End: 11-13-2024 ambulatory Fadia Lucio Facility:[facility] Start: 11-09-2024 End: 11-09-2024 Patient encounter procedure Fadia AGUSTIN -[facility] Work Phone: Start: 11-09-2024 End: 11-09-2024 ambulatory Fadia Lucio Facility:[facility] Start: 11-09-2024 End: 11-09-[address] Alejandrina Graham MD Work Phone: [facility] Work Phone: Start: 11-09-2024 End: 11-09-[address] Willie Adams MD -Laboratory Work Phone: Start: 11-08-2024 End: 11-08-[address] Willie Adams MD -[facility] Work Phone: Start: 11-08-2024 End: 11-09-2024 ambulatory Willie Adams Facility:[facility] Start: 10-04-2024 End: 10-04-2024 Patient encounter procedure Alma KELLY -Nuclear Medicine, [facility] Work Phone: Start: 10-04-2024 End: 10-04-2024 ambulatory Alma Melton Facility:[facility] Start: 09-19-2024 End: 09-19-2024 Patient encounter procedure Alma KELLY -[facility] Work Phone: Start: 09-19-2024 End: 09-19-2024 ambulatory Alma Melton Facility:[facility] Start: 07-12-2024 ambulatory Health Risk Assessment Facility:[facility] Start: 06-26-2024 End: 06-26-2024 ambulatory ALEJANDRINA GRAHAM Facility:[facility] Start: 06-26-2024 End: 06-26-2024 Subsequent hospital visit by physician [facility] Work Phone: Radiology Comment on above: Left hip pain [M25.5 52] Start: 06-26-2024 End: 06-26-2024 ambulatory ALEJANDRINA GRAHAM Facility:[facility] Start: 06-26-2024 End: 06-26-2024 Office outpatient visit 25 minutes Alejandrina Graham MD Work Phone: [facility] Comment on above: Trochanteric bursiti s of right hip (Primary Dx); Anxiety and depression; Left hip pain Start: 06-25-2024 End: 06-26-2024 Refill Laurel Jeanmarie PRINCIPAL SECURITY ARCHITECT.LEVEL VIAL GRINDER Work Phone: [facility] Comment on above: Refill Request Start: 04-05-2024 End: 04-05-2024 Subsequent hospital visit by physician [facility] Work Phone: Radiology Comment on above: Thyroid enlargement [E04.9] Start: 04-05-2024 End: 04-05-2024 ambulatory LAUREL JEANMARIE Facility:[facility] Start: 04-05-2024 End: 04-05-2024 Patient encounter procedure Laurel Jeanmarie PRINCIPAL SECURITY ARCHITECT.LEVEL VIAL GRINDER Work Phone: [facility] Comment on above: Thyroid enlargement (Primary Dx); Weight gain; Anxiety and depression; Encounter for therapeutic drug monitoring Start: 01-17-2024 Refill Laurel Jeanmarie PRINCIPAL SECURITY ARCHITECT.LEVEL VIAL GRINDER Work Phone: [facility] Comment on above: Refill Request Start: 01-05-2024 End: 01-05-2024 Patient encounter procedure Laurel Jeanmarie PRINCIPAL SECURITY ARCHITECT.LEVEL VIAL GRINDER Work Phone: [facility] Comment on above: Primary hypertension (Primary Dx); Anxiety and depression; Hyperlipidemia, unspecified hyperlipidemia type Start: 12-30-2023 Documentation procedure Mammog fco Coordinator [facility] Start: 12-30-2023 Letter encounter Mammography Coordinator [facility] Start: 12-29-2023 End: 12-29-2023 Subsequent hospital visit by physician Screen Mammo [facility] Comment on above: Encounter for screen ing mammogram for breast cancer [Z12.31] Start: 11-16-2023 ambulatory Alejandrina Juarez Work Phone: Internal [facility] Start: 11-01-2023 E-mail encounter fro m caregiver Laurel Murry PRINCIPAL SECURITY ARCHITECT.LEVEL VIAL GRINDER Work Phone: [facility] Start: 11-01-2023 Patient encounter procedure Laurel Harrisonr PRINCIPAL SECURITY ARCHITECT.LEVEL VIAL GRINDER Work Phone: [facility] [place] Comment on above: Up coming appointmen t Start: 09-22-2023 End: 09-22-2023 Patient encounter procedure Laurel Jeanmarie PRINCIPAL SECURITY ARCHITECT.LEVEL VIAL GRINDER Work Phone: [facility] [place] Comment on above: Primary hypertension (Primary Dx); Anxiety and depression; Moderate persistent asthma without complication; Vision disturbance; Encounter for therapeutic drug monitoring Start: 06-23-2023 End: 06-23-2023 Patient encounter procedure Laurel Harrisonr PRINCIPAL SECURITY ARCHITECT.LEVEL VIAL GRINDER Work Phone: [facility] Comment on above: Anxiety and depressi on (Primary Dx); Panic attacks; Moderate persistent asthma without complication; Allergy to perfume; Pain in right leg Start: 02-15-2023 End: 02-15-2023 Patient encounter procedure Laurel Harrisonr PRINCIPAL SECURITY ARCHITECT.LEVEL VIAL GRINDER Work Phone: [facility] [place] Comment on above: Rash and nonspecific skin eruption (Primary Dx); Arthralgia, unspecified joint; Malaise Start: 12-15-2022 End: 12-15-2022 Patient encounter procedure Alejandrina Graham MD Work Phone: [facility] [place] Comment on above: Hyperlipidemia, unsp ecified hyperlipidemia type (Primary Dx); Anxiety and depression; Belching; RUQ pain; Allergy to perfume; Airway compromise; Panic attacks Eructation; Abdominal bloating; RUQ pain Start: 12-14-2022 Refill Alejandrina Juarez Work Phone: [facility] [place] Comment on above: Refill Request Start: 08-26-2022 ambulatory Alejandrina Juarez Work Phone: Internal [facility] Start: 07-25-2022 End: 07-25-2022 Patient encounter procedure Esha Rollins PRINCIPAL SECURITY ARCHITECT.LEVEL VIAL GRINDER Work Phone: [facility] Comment on above: Bacterial sinusitis (Primary Dx) Start: 07-10-2022 End: 07-10-2022 ambulatory Alejandrina Graham MD Work Phone: [facility] [place] Comment on above: Anxiety and depressi on (Primary Dx); Belching; Constipation, unspecified constipation type Start: 07-10-2022 End: 07-10-2022 Telemedicine consultation with patient Alejandrina Graham MD Work Phone: [facility] Start: 06-21-2022 ambulatory Alejandrina Juarez Work Phone: [facility] [place] Comment on above: Paternal aunt cancer information [...] 03-26-2022 Emergency department patient visit MANDO DARNELL [facility] Start: 06-30-2021 End: 06-30-[address] [facility] ORR [facility] Procedures Date Procedure Procedure Detail Performing Clinician Start: 04-26-2025 Measurement of occult blood in stool specimen using immunoassay Dr. Willie Adams MD Work Phone: Start: 02-13-[address] Alejandrina Graham MD Work Phone: Start: 01-30-2025 Hysteroscopy Alma KELLY Work Phone: [...] neck real time imge docm Laurel Murry PRINCIPAL SECURITY ARCHITECT.LEVEL VIAL GRINDER Work Phone: Start: 11-24-2023 Lipid 1996 panel - Serum or Plasma Laurel Murry PRINCIPAL SECURITY ARCHITECT.LEVEL VIAL GRINDER Work Phone: Start: 12-15-2022 Lipid 1996 panel - Serum or Plasma Laurel Murry PRINCIPAL SECURITY ARCHITECT.LEVEL VIAL GRINDER Work Phone: Start: 06-09-2022 [employer] COVID-19 BIVALENT BOOSTER VACCINE, AGE 12+ YR Alejandrina Graham MD Work Phone: Start: 07-21-2021 Mammography Alejandrina Graham MD Work Phone: Start: 01-26-2019 Colonoscopy Alejandrina Graham MD Work Phone: H/O: tubal ligation Tubal ligati on status Dr. Alejandrina Graham MD Work Phone: Plan of Treatment Date Care Activity Detail Author Start: 01-26-2029 Colonoscopy COLONOSCOPY [facility] Start: 01-26-2029 COLORECTAL CANCER SCREENING COLORECTAL CANCER SCREENING [facility] Start: 01-26-2029 Screening for malign ant neoplasm of colon [facility] Start: 11-23-2028 Lipid panel Lipid Screening [facility] Start: 12-16-2027 Lipid 1996 panel - S diana or Plasma Lipid Screening [facility] Start: 12-16-2027 Lipid panel Lipid Screening [facility] Start: 12-16-2027 LIPID SCREEN LIPID SCREEN [facility] Start: 06-09-2027 LIPID SCREEN LIPID SCREEN [facility] Start: 04-05-2027 Diabetes Screening Diabetes Screenin g [facility] Start: 09-22-2026 Diabetes Screening Diabetes Screenin g [facility] Start: 12-15-2025 DIABETES SCREEN DIABETES SCREEN [facility] Start: 12-15-2025 Diabetes Screening Diabetes Screenin g [facility] Start: 06-26-2025 Annual PCP Team [employer] L[employer] Shade Maker jv Disease Visit Annual PCP Team Chronic Disease Visit [facility] Start: 06-09-2025 DIABETES SCREEN DIABETES SCREEN [facility] Start: 05-01-2025 End: 05-15-2025 Discharged Recurring Discharged Recurring -Nutritional Services Work Phone: Start: 04-16-2025 Influenza vaccination Influenza Vacc ine (#1) [facility] Start: 04-05-2025 Annual PCP Team [employer] Maker jv Disease Visit Annual PCP Team Chronic Disease Visit [facility] Start: 04-05-2025 BP Controlled (<130/80) BP Controlle d (<130/80) [facility] Start: 02-13-2025 MG Breast - bilatera l Screening [facility] Start: 01-30-2025 Ambulation without limitation [facility] Start: 01-30-2025 Medical regimen orde rs management [facility] Start: 01-30-2025 Medication education [facility] Start: 01-30-2025 Patient discharge [facility] Start: 01-30-2025 Procedure discontinued [facility] Start: 01-30-2025 Taking patient vital signs [facility] Start: 01-30-2025 Vital signs measurements [facility] Start: 01-30-2025 [facility] Start: 01-30-2025 Anes hysteroscopy&/hysterosalpi ngography w/bx ANESTH HYSTEROSCOPE/GRAPH [facility] Start: 01-30-2025 Diagnostic dilation and curettage of uterus HYSTEROSCOPY BIOPSY [facility] Start: 01-30-2025 Hysteroscopy bx endometrium&/polypc w/wo d&c HYSTEROSCOPY BIOPSY [facility] Start: 01-04-2025 Annual PCP Team [employer] jv Disease Visit Annual PCP Team Chronic Disease Visit [facility] Start: 01-04-2025 BP Controlled (<130/80) BP Controlle d (<130/80) [facility] Start: 01-02-2025 MG Breast - bilatera l Screening [facility] Start: 12-28-2024 Screening for malign ant neoplasm of breast Mammogram Screening [facility] Start: 11-29-2024 Egd transoral biopsy single/multiple EGD BIOPSY SINGLE/MULTIPLE [facility] Start: 11-29-2024 Patient discharge [facility] Start: 10-02-2024 End: 10-02-2024 Patient encounter procedure 10/02/2024 9:40 AM EST Office Visit [facility] [place] [address] [place] [address] Alejandrina Graham MD [address] [place], [place] [id number] 3 month follow up [facility] [place] Comment on above: 3 month follow up Start: 09-22-2024 Annual PCP Team [employer] Maker jv Disease Visit Annual PCP Team Chronic Disease Visit [facility] Start: 07-05-2024 End: 07-05-2024 Patient encounter procedure 07/05/2024 8:40 AM EST Office Visit [facility] [place] [address], [place] [id number] Laurel Murry APRN.LEVEL VIAL GRINDER [address] [place], [place] [phone] 6 month follow up [facility] [place] Comment on above: 6 month follow up Start: 04-16-2024 Covid-19 Vaccine ( season) Covid-19 Vaccine () [facility] Start: 04-16-2024 Influenza vaccination C [facility] Start: 04-05-2024 End: 07-05-2024 Thyrotropin [Units/volume] in Serum or Plasma [facility] Work Phone: Comment on above: Expected: 04/05/2024 , Expires: 07/05/2024 Start: 04-05-2024 End: 07-05-2024 Thyroxine (T4) free [Mass/volume] in Serum or Plasma [facility] Comment on above: Expected: 04/05/2024 , Expires: 07/05/2024 Start: 04-05-2024 End: 07-05-2024 Triiodothyronine (T3) Free [Mass/volume] in Serum or Plasma [facility] Comment on above: Expected: 04/05/2024 , Expires: 07/05/2024 Start: 01-31-2024 LIPID SCREEN LIPID SCREEN [facility] Start: 01-05-2024 End: 01-05-2024 Patient encounter procedure 01/05/2024 9:00 AM EDT Office Visit [facility] [place] [address], [place] [id number] Laurel Murry APRN.LEVEL VIAL GRINDER [address] [place] [address] Follow up/new med check [facility] [place] Comment on above: Follow up/new med ch dagoberto Start: 11-16-2023 End: 02-15-2024 Lipid 1996 panel - Serum or Plasma LIPID PANEL BASIC Lab Routine Hyperlipidemia Expected: 11/16/2023, Expires: 02/15/[address] [facility] Work Phone: Comment on above: Expected: 11/16/2023 , Expires: 02/15/2024 Start: 11-11-2023 HPV TESTING HPV TESTING [facility] Start: 11-11-2023 PAP TESTING PAP TESTING [facility] Start: 11-11-2023 Screening for malign ant neoplasm of cervix [facility] Start: 04-16-2023 Covid-19 Vaccine () Covid-19 Vaccine () [facility] Start: 04-16-2023 Influenza vaccination C [facility] Start: 12-15-2022 End: 02-14-2023 Basic metabolic 2000 panel - Serum or Plasma [facility] Work Phone: Comment on above: Expected: 12/15/2022 , Expires: 02/14/2023 Start: 12-15-2022 End: 02-14-2023 Helicobacter pylori IgG Ab [Presence] in Serum or Plasma by Immunoassay [facility] Work Phone: Comment on above: Expected: 12/15/2022 , Expires: 02/14/2023 Start: 12-15-2022 End: 02-14-2023 Lipid 1996 panel - Serum or Plasma [facility] Work Phone: Comment on above: Expected: 12/15/2022 , Expires: 02/14/2023 Start: 08-16-2022 DEPRESSION ASSESSMENT DEPRESSION ASS ESSMENT [facility] Start: 07-21-2022 Mammography [facility] Start: 07-21-2022 Screening for malign ant neoplasm of breast Mammogram Screening [facility] Start: 06-09-2022 End: 08-09-2022 Basic metabolic 2000 panel - Serum or Plasma [facility] Work Phone: Comment on above: Expected: 06/09/2022 , Expires: 08/09/2022 Start: 06-09-2022 End: 08-09-2022 CBC W Auto Differential panel - Blood [facility] Work Phone: Comment on above: Expected: 06/09/2022 , Expires: 08/09/2022 Start: 06-09-2022 End: 08-09-2022 Cobalamin (Vitamin B12) [Mass/volume] in Serum or Plasma [facility] Work Phone: Comment on above: Expected: 06/09/2022 , Expires: 08/09/2022 Start: 06-09-2022 End: 08-09-2022 Hepatitis C virus Ab [Presence] in Serum [facility] Work Phone: Comment on above: Expected: 06/09/2022 , Expires: 08/09/2022 Start: 06-09-2022 End: 08-09-2022 HIV 1+2 Ab [Presence] in Serum or Plasma by Immunoassay [facility] Work Phone: Comment on above: Expected: 06/09/2022 , Expires: 08/09/2022 Start: 06-09-2022 End: 08-09-2022 Lipid 1996 panel - Serum or Plasma [facility] Work Phone: Comment on above: Expected: 06/09/2022 , Expires: 08/09/2022 Start: 04-16-2022 Influenza vaccination INFLUENZA (#1) [facility] Start: 10-25-2021 DIABETES SCREEN DIABETES SCREEN [facility] Start: 2017 SHINGRIX VACCINE (1 of 2) TOBIAS GRIX VACCINE (1 of 2) [facility] Start: 2012 COLOGUARD (FIT-DNA) COLOGUARD (FIT-D NA) [facility] Start: [address] COLONOGRAPHY [facility] Start: 2012 FECAL OCCULT BLOOD FECAL OCCULT BLOO D [facility] Start: 2012 Screening for malign ant neoplasm of colon [facility] Start: 2012 SIGMOIDOSCOPY SIGMOIDOSCOPY [facility] Start: 1986 Pneumococcal Vaccine : 50+ (1 of 2 - PCV) Pneumococcal Vaccine: 50+ (1 of 2 - PCV) [facility] Start: 1986 Urine microalbumin profile [facility] Start: 1985 BP Controlled (<130/80) BP Controlle d (<130/80) [facility] Start: 1985 HEPATITIS C SCREENING HEPATITIS C SC DIALLONING [facility] Start: 1985 HIV SCREENING HIV SCREENING [facility] Start: 1985 Spirometry Spirometry [facility] Start: 1973 Pneumococcal vaccination Pneum ococcal Vaccine (1 of 2 - PCV) [facility] Start: 1967 HEPATITIS B (1 of 3 - 3-dose series) HEPATITIS B (1 of 3 - 3-dose series) [facility] Comprehensive metabo lic 1999 panel - Serum or Plasma [facility] CT Abdomen and Pelvi s W contrast IV [facility] End: 03-01-2026 DBT Breast - bilateral screening TORSTEN SCREENING W MISTY Radiology Routine Encounter for screening mammogram for breast cancer 1 Occurrences starting 01/30/2025 until 03/01/[address] [facility] Work Phone: Comment on above: 1 Occurrences starti ng 01/30/2025 until 03/01/2026 Lipid 1996 panel - S diana or Plasma [facility] End: 09-25-2023 TORSTEN SCREENING TORSTEN SCREENING Radiology Routine Encounter for screening mammogram for breast cancer 1 Occurrences starting 08/26/2022 until 09/25/[address] [facility] Work Phone: Comment on above: 1 Occurrences starti ng 08/26/2022 until 09/25/2023 MG Breast - bilatera l Screening [facility] MG Breast Screening TORSTEN SCREENIN G Radiology Routine Encounter for screening mammogram for breast cancer 12/29/2023 9:08 AM EDT [facility] Work Phone: Patient referral [facility] Work Phone: US [facility] End: 05-05-2025 US Thyroid gland US THYROID/PARATHYROID Radiology Routine Thyroid enlargement 1 Occurrences starting 04/05/2024 until 05/05/2025 [facility] Comment on above: 1 Occurrences starti ng 04/05/2024 until 05/05/2025 End: 07-26-2025 XR HIP BILATERAL 5V PEL/AP/LAT EACH HIP XR HIP BILATERAL 5V PEL/AP/LAT EACH HIP Radiology Routine Left hip pain 1 Occurrences starting 06/26/2024 until 07/26/[address] [facility] Work Phone: Comment on above: 1 Occurrences starti ng 06/26/2024 until 07/26/2025 XR HIP BILATERAL 5V PEL/AP/LAT EACH HIP XR HIP BILATERAL 5V PEL/AP/LAT EACH HIP Radiology Routine Left hip pain 06/26/2024 10:22 AM EST [facility] Immunizations Immunization Date Immunization Notes Care Provider [facility] 07-11-2024 influenza, seasonal, injectable, preservative free Dr. Alejandrina Graham MD Work Phone: [facility] 07-11-2024 influenza virus vaccine, unspecified formulation Alejandrina Graham MD Work Phone: [facility] 06-18-2022 influenza, seasonal, injectable Alejandrina Graham MD Work Phone: [facility] Work Phone: 06-18-2022 influenza virus vaccine, unspecified formulation Laurel Murry APRN.CNP Work Phone: [facility] 06-09-2022 COVID-19 booster vaccine, age 12+ yr, bivalent (PFIZER-BIONTINTTRA) Alejandrina Graham MD Work Phone: [facility] Work Phone: 06-12-2021 influenza, seasonal, injectable Alejandrina Graham MD Work Phone: [facility] Work Phone: 12-11-2020 COVID-19 original vaccine, full dose, monovalent (MODERNA) Alejandrina Graham MD Work Phone: [facility] 11-14-2020 COVID-19 original vaccine, full dose, monovalent (MODERNA) Alejandrina Graham MD Work Phone: [facility] 10-31-2013 hepatitis B vaccine, adult dosage Dr. Alejandrina Graham MD Work Phone: [facility] 09-23-2011 hepatitis B vaccine, adult dosage Dr. Alejandrina Graham MD Work Phone: [facility] 08-24-2011 hepatitis B vaccine, adult dosage Dr. Alejandrina Graham MD Work Phone: [facility] Payers Date Payer Category Payer Unknown [id number] Self-pay 2023 Unknown [id number] 2022 Unknown [id number] 1965 Unknown [id number] 2.16.84 0.1.501313.3.579.2.651 1965 Unknown [id number] 2.16.84 0.1.055995.3.579.2.651 Self-pay [id number] Unknown [id number] Unknown [id number] 2.16.8 40.1.901855.3.579.2.462 Unknown [id number] 2.16.8 40.1.171653.3.579.2.462 Unknown [id number] 2.16.8 40.1.441252.3.579.2.462 Unknown [id number] 2.16.8 40.1.035855.3.579.2.462 Unknown [id number] 2.16.8 40.1.265829.3.579.2.462 Unknown [id number] 2.16.8 40.1.119476.3.579.2.462 Unknown [id number] 2.16.8 40.1.589680.3.579.2.462 Unknown [id number] 2.16.8 40.1.348713.3.579.2.462 Unknown [id number] 2.16.8 40.1.369328.3.579.2.462 Unknown [id number] 2.16.8 40.1.080666.3.579.2.462 Unknown [id number] 2.16.8 40.1.360844.3.579.2.462 Unknown [id number] 2.16.8 40.1.712643.3.579.2.462 Unknown [id number] 2.16.8 40.1.808306.3.579.2.462 Unknown [id number] 2.16.8 40.1.305995.3.579.2.462 Unknown [id number] 2.16.8 40.1.190619.3.579.2.462 Unknown [id number] 2.16.8 40.1.054994.3.579.2.462 Unknown [id number] 2.16.8 40.1.358638.3.579.2.462 Unknown [id number] 2.16.8 40.1.625310.3.579.2.462 Unknown [id number] 2.16.8 40.1.432796.3.579.2.462 Unknown [id number] 2.16.8 40.1.057946.3.579.2.462 Unknown [id number] 2.16.8 40.1.259254.3.579.2.462 Unknown [id number] 2.16.8 40.1.456044.3.579.2.462 Unknown [id number] 2.16.8 40.1.024427.3.579.2.462 Unknown [id number] 2.16.8 40.1.138085.3.579.2.462 Unknown [id number] 2.16.8 40.1.651248.3.579.2.462 Unknown [id number] 2.16.8 40.1.580012.3.579.2.462 Unknown [id number] 2.16.8 40.1.192761.3.579.2.462 Unknown [id number] 2.16.8 40.1.062827.3.579.2.462 Social History Date Type Detail Facility Start: 06-09-2022 End: 01-17-2025 Tobacco smoking status NHIS Ex-smoker [facility] Work Phone: History of tobacco use Current smoker [facility] Work Phone: Start: 06-09-2022 Tobacco use and exposure Smokeless tobacco non-user [facility] Work Phone: Start: 06-09-2022 End: 04-05-2024 Alcohol intake Ex-drinker (finding) [facility] Start: 06-08-2022 End: 07-09-2022 History SDOH Alcohol Frequency 2 [facility] Start: 06-08-2022 End: 07-09-2022 History SDOH Alcohol Std Drinks 1 [facility] Start: 06-08-2022 End: 07-09-2022 History SDOH Social Connections Phone 3 [facility] Start: 06-08-2022 History SDOH Physica l Activity MPS 0 [facility] Start: 06-08-2022 End: 07-09-2022 History SDOH Stress 5 [facility] Start: 1965 Sex Assigned At Female C [facility] Start: 05-30-2022 End: 06-09-2022 Exposure to SARS-CoV-2 (event) Not sure [facility] Work Phone: Start: 07-09-2022 History SDOH Social Connections Meetings 98 [facility] Start: 07-09-2022 End: 06-23-2023 History of Social function [facility] Start: 07-09-2022 End: 06-23-2023 Social connection and isolation panel [facility] Do you belong to any clubs or organizations such as congregational groups, unions, fraternal or athletic groups, or school groups? Yes [facility] How often do you att end meetings of the clubs or organizations you belong to? Patient refused [facility] Are you now , , , , never or living with a partner? [facility] How often to you hav e a drink containing alcohol? Monthly or less [facility] How many standard drinks containing alcohol do you have on a typical day? 1 or 2 [facility] How often do you hav e 6 or more drinks on 1 occasion? Never [facility] How hard is it for y ou to pay for the very basics like food, housing, medical care, and heating Somewhat hard [facility] Do you feel stress - tense, restless, nervous, or anxious, or unable to sleep at night because your mind is troubled all the time - these days [OSQ] Only a little [facility] (I/We) worried whecassandra er (my/our) food would run out before (I/we) got money to buy more. Sometimes true [facility] The food that (I/we) bought just didn't last, and (I/we) didn't have money to get more. Never true [facility] At any time in the p ast 12 months, were you homeless or living in detention [including now]? No [facility] Start: 01-26-2019 Gender identity Identifies as female gender (finding) [facility] Start: 01-26-2019 Sexual orientation Heterosexual (fin frances) [facility] Do you feel stress - tense, restless, nervous, or anxious, or unable to sleep at night because your mind is troubled all the time - these days [OSQ] To some extent [facility] Start: 02-05-2020 None None [facility] Start: 02-05-2020 Spouse/ Significant Other Spouse/ Significant Other [facility] Start: 11-14-2024 End: 11-29-2024 Sex Female (finding) [facility] NEGATED: Highlighted row Not [facility] Medical Equipment Procedure Code Equipment Code Equipment Origin al Text Equipment Identifier Dates 1 Each once ever y month. Start: 03-01-2020 End: 06-09-2022 Comment on above: 1 Each once every mo nth. Goals Date Patient Goal Desired Activity /State Mental Status Date Assessment Result Facility 01-30-2025 Cognitive function Level Of Cons ciousness Follows Commands;Drowsy [facility] Work Phone: 01-30-2025 Cognitive function Voice/Name [facility] Work Phone: 11-29-2024 Cognitive function Voice/Name [facility] Work Phone: Clinical Notes 06-09-2022 to 01-30-2025 Note Date & Type Note Facility 01-30-2025 Consult note [facility] 01-30-2025 Discharge summary [facility] 01-30-2025 History and physical note Note Date/Time January 30, 2025 2:23pm [facility] Medical Records Department [address] [place] [address] History & Physical Exam 01/30/25 0735 MR#: [id number] Acct: [id number] Name: POLINA THOMSON Rep #:[id number] : 1965 59 From: Gayatri balderas MD PCP: Dr. 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 Gayatri Weinstein MD ~* Signed [facility] Work Phone: 1(624) 893-169906-17-2025 Procedure note [facility] Medical Records Department [address] [place] [address] Operative Report 01/30/25 1549 MR#: [id number] Acct: [id number] Name: POLINA THOMSON Rep #:[id number] : 1965 59 From: Gayatri balderas MD PCP: Dr. Willie Adams MD Status:R [facility] Location: [place] [address] Problems Associated Problem List Diagnoses (1) Post-menopausal bleeding: Multi Select Codes Urinary/Genital Urinary/Genital CPT Codes: 55352 Hysteroscopy,EMC, Polypectomy Operative Report (Standard) Operative Information Date of Procedure: 01/30/25 Pre-Operative Diagnosis: see problem list comments Post-Operative Diagnosis: same Surgery/Procedure Performed: dilation and curettage hysteroscopy sustainable development policy analyst: No Type of Anesthesia: IV Sedation and [...] Adams MD; Dr. Gayatri Weinstein MD~ Signed [facility]06-17-2025 Consult note Author Bharat Atwood [facility] Note Date/Time January 30, 2025 1:03 pm [facility] Medical Records Department [address] [place] [address] Pre-Anesthesia Evaluation 01/30/25 1258 MR#: [id number] Acct: [id number] Name: POLINA THOMSON Rep #:[id number] : 1965 59 From: Bharat Atwood MD PCP: Dr. 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 Hx Hospitalization No 01/17/25 14:59 Any Problems [...] take am of surgery PONV PONV - electrical assembler: PONV - electrical assembler Female Yes 01/17/25 14:59 HX of Motion [...] 01/30/25 12:39 Respiratory Assessment Respiratory Assessment - electrical assembler: Respiratory Tract Infection Hx - electrical assembler Hx Respiratory Tract Infection No 01/17/25 14:59 STOP Sleep Apnea STOP Sleep Apnea - electrical assembler: STOP Sleep Apnea - electrical assembler Hx Hypertension Yes 01/17/25 14:59 Hx Sleep [...] Tobacco Use History Tobacco Use History - electrical assembler: Tobacco Use History - electrical assembler Tobacco Use Smoking Status Former smoker 01/17/25 14:59 Hx Tobacco Use No 01/17/25 14:59 Years Smoking Packs Smoked per Day Smoking Cessation Date was Yes - quit smoking within 15 01/17/25 14:59 within the last 15 years years Hx Smoking Cessation Date Hx Smoking Cessation No 01/17/25 14:59 Counseling Hematologic Medial History Hematologic Hx - electrical assembler: 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 Hx of Blood Transfusion No 01/17/25 14:59 [...] confused, unrespo /Reproduction History /Reproductive History - electrical assembler: /Reproductive Hx- electrical assembler Hx Now No 01/17/25 14:59 Gestational Age [...] mg PO QHS 09/08/24 History hr,extended release qwmovahh-cdl-gnesa ac 400 1 tab PO .QD 11/08/24 [...] 3 current occupational status: employed 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 Willie Adams MD Status:R EG [facility] Location: [place] [address] History and Physical Date of Admission: 01/30/25 Intake Vital Signs 11/29/2504:40 01/12/2514:06 Height 5 ft 7 in 5 ft 7 in Weight: 201 lb 4 oz BMI 31.5 BP 115/69 Intake Visit Reasons: Consult D&C Supervisor Gear Repair Required: No Is patient in pain?: Yes (on and off pain, ) Allergies perfume Allergy (Verified 01/12/25 14:07) throat swelling Medications ?Medication ?Instructions ?Recorded ?Confirmed ?Type ibuprofen 600 mg tablet 600 mg PO Q6H PRN PRN Pain Score 0 01/12/25 Rx 1-05/25 #20 tabs mecobalamin (vitamin B12) 500 mcg mcg PO 09/08/24 01/12/25 History chewable tablet propranolol 60 mg capsule,24 60 mg PO QHS 09/08/24 01/12/25 History hr,extended release bheuftlk-csm-zpkum ac 400 tab PO 11/08/24 01/12/25 History [...] (Voquezna) 10 mg PO QDAY #30 tabs 04/30/25 05/30/25 Rx famotidine 40 mg tablet 40 mg PO QDAY PRN eructation #30 15/2 5 01/12/25 Rx tabs misoprostol 200 mcg [...] 3 current occupational status: employed 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 Gayatri Weinstein MD ~* Signed [facility]06-17-2025 Evaluation note* Diagnosis Onset Date Resolution Status Admit Date Post-menopausal bleeding acute January 30, 2025 12:07pm Post-menopausal bleeding acute February 12, 2025 7:52am Aortic calcification acute February 14, 2025 5:21pm Anxiety and depression chronic Ju ly 2024 5:21pm Chronic abdominal pain chronic Ju ly 2024 5:21pm Dermatitis chronic February 14, 2025 5:21pm Hyperlipidemia chronic February 14, 2025 5:21pm Migraines chronic February 14, 2025 5:21pm Obesity (BMI 30.0-34.9) chronic J yeison 2024 5:21pm [facility] Work Phone: 1(229) 322-443206-17-2025 Evaluation note* Diagnosis Onset Date Resolution Status Admit Date Post-menopausal bleeding acute January 30, 2025 12:07pm Post-menopausal bleeding acute February 12, 2025 7:52am Aortic calcification acute February 14, 2025 5:21pm Anxiety and depression chronic Ju ly 2024 5:21pm Chronic abdominal pain chronic Ju ly 2024 5:21pm Dermatitis chronic February 14, 2025 5:21pm Hyperlipidemia chronic February 14, 2025 5:21pm Migraines chronic February 14, 2025 5:21pm Obesity (BMI 30.0-34.9) chronic J yeison 2024 5:21pm Musculoskeletal pain of extremity acute May 16 7:22am Anxiety and depression chronic Oc tober 2024 7:22am Chronic constipation chronic Octo 2024 7:22am GERD (gastroesophageal reflu x disease) chronic May 16 7:22am Hyperlipidemia chronic May 7:22am Migraines chronic May 16, 2 025 7:22am Obesity (BMI 30.0-34.9) chronic O ctober 2024 7:22am Tinnitus chronic May 16 025 7:22am [facility] Work Phone: 1(567) 631-812906-17-2025 Consult note [facility] Medical Records Department [address] [place] [address] Pre-Anesthesia Evaluation 01/30/25 1258 MR#: [id number] Acct: [id number] Name: POLINA THOMSON Rep #:[id number] : 1965 59 From: Bharat Atwood MD PCP: Dr. 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 History - electrical assembler Hx Hospitalization No 01/17/25 14:59 Any Problems [...] take am of surgery PONV PONV - electrical assembler: PONV - electrical assembler Female Yes 01/17/25 14:59 HX of Motion [...] 01/30/25 12:39 Respiratory Assessment Respiratory Assessment - electrical assembler: Respiratory Tract Infection Hx - electrical assembler Hx Respiratory Tract Infection No 01/17/25 14:59 STOP Sleep Apnea STOP Sleep Apnea - electrical assembler: STOP Sleep Apnea - electrical assembler Hx Hypertension Yes 01/17/25 14:59 Hx Sleep [...] Tobacco Use History Tobacco Use History - electrical assembler: Tobacco Use History - electrical assembler Tobacco Use Smoking Status Former smoker 01/17/25 14:59 Hx Tobacco Use No 01/17/25 14:59 Years Smoking Packs Smoked per Day Smoking Cessation Date was Yes - quit smoking within 15 01/17/25 14:59 within the last 15 years years Hx Smoking Cessation Date Hx Smoking Cessation No 01/17/25 14:59 Counseling Hematologic Medial History Hematologic Hx - electrical assembler: 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 Hx of Blood Transfusion No 01/17/25 14:59 [...] confused, unrespo /Reproduction History /Reproductive History - electrical assembler: /Reproductive Hx- electrical assembler Hx Now No 01/17/25 14:59 Gestational Age [...] History (Updated 01/17/25 @ 14:59 by Fidelia Wilder) Bite from insect Leg cramps Wears glasses [...] mg PO QHS 09/08/24 History hr,extended release dxxecpxt-maa-zeoxx ac 400 1 tab PO .QD 11/08/24 [...] 3 current occupational status: employed 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 Willie Adams MD Status:REG [facility] Location: [place] [address] History and Physical Date of Admission: 01/30/25 Intake Vital Signs 11/29/2504:40 01/12/2514:06 Height 5 ft 7 in 5 ft 7 in Weight: 201 lb 4 oz BMI 31.5 BP 115/69 Intake Visit Reasons: Consult D C Supervisor Gear Repair Required: No Is patient in pain?: Yes [...] PO QHS 09/08/24 01/12/25 History hr,extended release wgzddupg-ajp-ylydb ac 400 tab PO 11/08/24 01/12/25 History [...] 3 current occupational status: employed current occupation: [employer] current occupational exposures/hazards: No pets [...] Past Pregnancies Del. Date (more content not included)...[facility]06-17-2025 NotePatient Outreach (INTMWS) POLINA THOMSON ([id number]) 1965 F Date Time Provider Department 01/30/25 ALEJANDRINA GRAHAM INTMWS During your visit today, we recorded the following information about you: Allergies As of Date: 01/30/2025 Noted Allergy Reaction PERFUMES 06/23/2023 12 - Shortness of Breath Comments: coughing SEASONAL ALLERGIES 08/04/2018 14 - Other: See Comments Comments: Sneezing, runny nose Date Reviewed: 06/26/2024 Reviewed by: Rohini De Anda MA - Fully Assessed Visit Diagnosis:Encounter for screening mammogram for breast cancer [Z12.31] Order(s):[facility] SCREENING [facility] [[id number]] Order #: [id number] FUTURE Prescriptions as of 03/02/2025 - venlafaxine ER (EFFEXOR XR) 37.5 mg 24 hr capsule Take 1 capsule by mouth once daily. - X-U2-alib-xzv-rxefg-cpkb-herb (IMMUNE SUPPORT, VIT C,D,ZINC,) 180 mg-10 mcg- 5.5 mg-150 mg cap Take 2 capsules by mouth once daily. - Lactobacillus rhamnosus GG (CULTURELLE ORAL) Take 1 capsule by mouth once daily. - bismuth subsalicylate (DIGESTIVE RELIEF ORAL) Take 1 tablet by mouth two times a day. - ICDCH-YCPUGNJOW-TDCTNDXAG MISC 1 tablet as needed. - propranolol ER (INDERAL LA) 60 mg 24 hr capsule take 1 capsule by mouth every day - Lvjsbgupxtqbh-Vphaupmd-Megkbc (MULTIVITAMIN 50 PLUS) tab Take 1 tablet by mouth once daily. - albuterol HFA (PROVENTIL HFA, VENTOLIN HFA) 90 mcg/actuation inhaler Inhale 2 Puffs as instructed every 4 hours as needed for wheezing/shortness of breath. Problem List As Of Date 01/30/2025 Noted Resolved Hyperlipidemia [E78.5] 12/15/2022 Anxiety and depression [F41.9, F32.A] 09/22/2023 Moderate persistent asthma without complication*09/22/2023 Encounter Status:Closed by yourdelivery, PRODUSER on 03/02/25[facility] 01-24-2025 Radiology Diagnostic study note [facility] Imaging Services [address] [place] [address] [id number] Abdomen/Pelvis WITH Contrast MR#: [id number] Acct: [id number] Name: POLINA THOMSON Rep #: [id number] : 1965 F 59 From: Chely Foster MD PCP: Dr. Willie Adams MD Status: R EG CLI Study:Abdomen/Pelvis WITH Contrast Date of Ex am: 01/23/25 Exam# [id number] Ordering Dr: Alma Melton PROCEDURE: ABDOMEN/PELVIS WITH [...] extrarenal pelves. Mild diffuse spondylosis. Reading Location: [place] [address] CC: Dr. Willie Adams MD; LETICIA Ham ~ Booster Operator: Signed [facility]05-15-2025 Evaluation note* Diagnosis Onset Date Resolution Status Admit Date Constipation acute December 28 6:52am Eructation acute December 28, 2024 6:52am GERD (gastroesophageal reflu x disease) acute December 28, 2024 6 :52am Abdominal pain inactive December 28, 2024 6:52am Post-menopausal bleeding acute January 12, 2025 2:02pm Post-menopausal bleeding acute January 30, 2025 12:07pm Post-menopausal bleeding acute February 12, 2025 7:52am Aortic calcification acute February 14, 2025 5:21pm Anxiety and depression chronic Ju ly 2024 5:21pm Chronic abdominal pain chronic Ju ly 2024 5:21pm Dermatitis chronic February 14, 2025 5:21pm Hyperlipidemia chronic February 14, 2025 5:21pm Migraines chronic February 14, 2025 5:21pm Obesity (BMI 30.0-34.9) chronic J yeison 2024 5:21pm [facility] Work Phone: 1(903) 278-489004-16-2025 Consult note [facility] Medical Records Department [address] [place] [address] Anesthesia Postop Eval II 11/29/24729 MR#: [id number] Acct: [id number] Name: POLINA THOMSON Rep #:[id number] : 1965 59 From: Michael Grier MD PCP: Dr. Willie Adams MD Status:R EG [facility] Y Race: C Location: [address] Anesthesia Postop Eval I Sum Postop [...] Vomiting: No 11/29/24729 > Date _ Michael Grier MD Cosigner Signature: Date CC: ~ Signed [facility]04-16-2025 Consult note [facility] Medical Records Department [address] [place] [address] Anesthesia Postop Eval I 11/29/24 0708 MR#: [id number] Acct: [id number] Name: POLINA THOMSON Rep #:[id number] : 1965 59 From: Lele Keys PCP: Dr. Willie Adams MD Status:Harriett BAEZA [facility] Y Race: C Location: [place] [address] Anesthesia: Postop Eval I Current Vital Signs [...] Postop Eval 1 completed: Yes 11/29/24 0709 > Date _ Lele Wen Signature: Date CC: ~ Signed [facility]04-16-2025 Procedure note [facility] Medical Records Department [address] [place] [address] Operative Report - CC Letter MR#: [id number] Acct: [id number] Name: POLINA THOMSON Rep #:[id number] : 1965 59 From: Adria Cisse DO PCP: Dr. Willie Adams MD Status:Harriett MUSTFAA 11/29/2024 Willie Adams MD [address] [place] [address] [place] [address] Re : Upper GI endoscopy procedure for Polina Thomson Dear Dr. Adams This procedure was performed on Friday, November 29, 2024. My impressions and recommendations [...] been signed electronically. 11/29/24703 Date _ Adria Cisse DO Cosigner Signature: Date (if indicated) CC: Dr. Willie Adams MD; Adria Cisse DO ~ Date Dictated: 11/29/24612 Date Transcribed: Booster Operator: RF Signed [facility]04-16-2025 Procedure note [facility] Medical Records Department [address] [place] [address] EGD Report MR#: [id number] Acct: [id number] Name: POLINA THOMSON Rep #:[id number] : 1965 59 From: Adria Cisse DO PCP: Dr. Willie Adams MD Status:R [facility] Patient Name: Polina Thomson Procedure Date: 11/29/2024 [...] pathology results. Procedure Code(s): --- Professional --- 00500, Small intestinal endoscopy, enteroscopy beyond second portion of duodenum, not including ileum; with biopsy, single or multiple CPT copyright 2021 [employer]. All rights reserved. The codes documented in this report are preliminary and upon internship review may be revised to meet current compliance requirements. Adria Cises DO 11/29/2024 7:04:06 AM This report has been signed electronically. Number of Addenda: 0 Note Initiated On: 11/29/2024 6:13 AM 11/29/24 0704 Date _ Adria Cisse DO Cosigner Signature: Date (if indicated) CC: Dr. Willie Adams MD; Adrai Cisse DO ~ Date Dictated: 11/29/24612 Date Transcribed: Booster Operator: RF Signed [facility]04-16-2025 History and physical note [facility] Medical Records Department [address] [place] [address] History & Physical Exam 11/29/24 0645 MR#: [id number] Acct: [id number] Name: POLINA THOMSON Rep #:[id number] : 1965 59 From: Adria Cisse DO PCP: Dr. Willie Adams MD Status:R [facility] Location: [place] [address] HPI - General General Date of Admission: 11/29/24 Date of Service: 11/29/24 HPI Narrative POLINA THOMSON, is a 59 F who presents Chief Complaint: bloating Details: POLINA THOMSON, is a 59 F who presents to the office today for establishment with [facility]. Pt has had GI issues for many [...] colonoscopy was in 2019 with normal findings. [facility] Medical History (Updated 11/29/24 @ [...] mg PO QHS 09/08/24 History hr,extended release tsrqhxkn-qgp-dfsnw ac 400 tab PO 11/08/24 11/27/24 His tory mcg-calcium carb 500 mg-vit K1 20 mcg tablet (Women's 50 Plus Multivitamin) sennosides 8.6 mg capsule (senna) 8.6 mg PO QDAY PRN c onstipation 11/08/24 Unknown History vit C 180 mg-D3 10 mcg-zinc 5.5 cap PO 11/08/24 History ju-tzvvis-sbmigop-calvin-herb capsule (Immune Support (vit c, d and [...] 3 current occupational status: employed current occupation: [employer] current occupational exposures/hazards: No pets [...] her. Her last colonoscopy was normal in 2018 and her constipation is not new. She will f/u in 2 months. -GES -Trial Ibsrela -Consider EGD -f/u 2 months (2) Bloating: Status: Acute (3) Constipation: Status: Acute Orders: Orders Gastric Emptying Study Today R14.0 - Abdominal distension (gaseous) (2) GERD (gastroesophageal reflux disease): 11/29/24 0647 Cosigner Signature (if applicable): CC: Dr. Willie Adams MD; Adria Cisse DO~ Signed [facility]04-16-2025 [facility] Medical Records Department [address] [place] [address] History Physical Exam 11/29/24 0645 MR#: [id number] Acct: [id number] Name: POLINA THOMSON Rep #: [id number] : 1965 59 From: Adria Cisse DO PCP: Dr. Willie Adams MD Status:[facility] Location: [place] [address] HPI - General General Date of Admission: 11/29/24 Date of Service: 11/29/24 HPI Narrative POLINA THOMSON, is a 59 F who presents Chief Complaint: bloating Details: POLINA THOMSON, is a 59 F who presents to the office today for establishment with [facility]. Pt has had GI issues for many [...] colonoscopy was in 2019 with normal findings. [facility] Medical History (Updated 11/29/24 @ [...] PRN Pain Score 0 02/05/20 Unknown Rx -05/25 #20 tabs mecobalamin (vitamin B12) 500 mcg mcg PO 09/08/24 11/27/24 History chewable tablet propranolol 60 mg capsule,24 60 mg PO QHS 09/08/24 11/28/24 His tory hr,extended release bolafvhg-lhx-vopui ac 400 tab PO 11/08/24 11/27/24 History mcg-calcium carb 500 mg-vit K1 20 mcg tablet (Women's 50 Plus Multivitamin) sennosides 8.6 mg capsule (senna) 8.6 mg PO QDAY PRN constipation 0 11/08/24 Unknown History vit C 180 mg-D3 10 mcg-zinc 5.5 cap PO 11/08/24 11/27/24 History mj-qvpapt-kqcmmuq-calvin-herb capsule (Immune Support (vit c, d and [...] 3 current occupational status: employed current occupation: [employer] current occupational exposures/hazards: No pets [...] Gastrointestinal Gastrointestinal: Denies belc (more content not included)...[facility]04-16-2025 Consult note [facility] Medical Records Department [address] [place] [address] Pre-Anesthesia Evaluation 11/29/24 0638 MR#: [id number] Acct: [id number] Name: POLINA THOMSON Rep #:[id number] : 1965 59 From: Michael Grier MD PCP: Dr. 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 Hx Hospitalization No 11/24/24 13:43 Any Problems [...] take am of surgery PONV PONV - electrical assembler: PONV - electrical assembler Female Yes 11/24/24 13:43 HX of Motion [...] 11/29/24 05:40 Respiratory Assessment Respiratory Assessment - electrical assembler: Respiratory Tract Infection Hx - electrical assembler Hx Respiratory Tract Infection No 11/24/24 13:43 STOP Sleep Apnea STOP Sleep Apnea - electrical assembler: STOP Sleep Apnea - electrical assembler Hx Hypertension No 11/24/24 13:43 Hx Sleep [...] Tobacco Use History Tobacco Use History - electrical assembler: Tobacco Use History - electrical assembler Tobacco Use Smoking Status Former smoker 11/24/24 13:43 Hx Tobacco Use No 11/24/24 13:43 Years Smoking Packs Smoked per Day Smoking Cessation Date was No - quit smoking greater 11/24/24 13:43 within the last 15 years than 15 years ago Hx Smoking Cessation Date Hx Smoking Cessation Counseling Hematologic Medial History Hematologic Hx - electrical assembler: 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 Hx of Blood Transfusion No 11/24/24 13:43 [...] confused, unrespo /Reproduction History /Reproductive History - electrical assembler: /Reproductive Hx- electrical assembler Hx Now No 11/24/24 13:43 Gestational Age [...] mg PO QHS 09/08/24 History hr,extended release giubhbin-mxg-ldpos ac 400 tab PO 11/08/24 11/27/24 His tory mcg-calcium carb 500 mg-vit K1 20 mcg tablet (Women's 50 Plus Multivitamin) sennosides 8.6 mg capsule (senna) 8.6 mg PO QDAY PRN c onstipation 11/08/24 Unknown History vit C 180 mg-D3 10 mcg-zinc 5.5 cap PO 11/08/24 History ko-gxfkyd-tbollxr-calvin-herb capsule (Immune Support (vit c, d and [...] 3 current occupational status: employed 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 Willie Adams MD ~ Booster Operator: Signed [facility]03-27-2025 NotePap Smear Specimen AdequacyMarch 2024 11:59pmComment.Satisfactory for evaluation. Endocervical and/or squamous metaplasticcells (endocervical component)are present.[facility] INTER[facility]ACED A#[id number] Community HospitalCompine [facility] on above:Satisfactory for evaluation. Endocervical and/or squamous metaplasticcells (endocervical component)are present.11-09-2024 NotePap Smear Specimen AdequacyMarch 2024 11:59pmComment.Satisfactory for evaluation. Endocervical and/or squamous metaplasticcells (endocervical component)are present.[facility] INTER[facility]ED A#[id number] Community HospitalCompine [facility] on above:Satisfactory for evaluation. Endocervical and/or squamous metaplasticcells (endocervical component)are present.11-09-2024 NotePap Smear Specimen AdequacyMarch 2024 11:59pmComment.Satisfactory for evaluation. Endocervical and/or squamous metaplasticcells (endocervical component)are present.[facility] INTER[facility] A#[id number] Community HospitalComment on above:Satisfactory for evaluation. Endocervical and/or squamous metaplasticcells (endocervical component)are present.11-09-2024 NotePap Smear Specimen [facility]acyMem[facility] 2024 11:59pmComment.Satisfactory for evaluation. Endocervical and/or squamous metaplasticcells (endocervical component)are present.[facility] INTER[facility]AC[facility] A#[id number] Community HospitalComment on above:Satisfactory for evaluation. Endocervical and/or squamous metaplasticcells (endocervical component)are present.11-08-2024 Evaluation note* Diagnosis Onset Date Resolution Status Admit Date Anxiety and depression chronic [facility] 2024 5:23pm Bloating chronic November 08 5:23pm Chronic constipation chronic [facility] 2024 5:23pm Hyperlipidemia chronic October 5:23pm Hypertension [...] Post-menopausal bleeding acute January 12, 2025 2:02pm [facility] Work Phone: 1(828) 733-805503-26-2025 Evaluation note* Diagnosis Onset Date Resolution Status Admit Date Anxiety and depression chronic [facility] 2024 5:23pm Bloating chronic November 08 [...] Post-menopausal bleeding acute January 30, 2025 12:07pm [facility] Work Phone: 1(503) 115-614503-26-2025 Evaluation note* Diagnosis Onset Date Resolution Status Admit Date Anxiety and depression chronic [facility] 2024 5:23pm Bloating chronic November 08 5:23pm [...] Post-menopausal bleeding acute January 30, 2025 12:07pm Post-menopausal bleeding acute February 12, 2025 7:52am [facility] Work Phone: 1(625) 389-767703-26-2025 Evaluation note* Diagnosis Onset Date Resolution Status [...] Post-menopausal bleeding acute January 30, 2025 12:07pm Post-menopausal bleeding acute February 12, 2025 7:52am Aortic calcification acute February 14, 2025 5:21pm Anxiety and depression chronic [facility] 2024 5:21pm Chronic abdominal pain chronic [facility] 2024 5:21pm Dermatitis chronic February 14, 2025 5:21pm Hyperlipidemia chronic February 14, 2025 5:21pm Migraines chronic February 14, 2025 5:21pm Obesity (BMI 30.0-34.9) chronic [facility] 2024 5:21pm [facility] Work Phone: 1(849) 362-477902-04-2025 Evaluation note* Diagnosis Onset Date Resolution Status Admit Date Constipation acute September 7:09am Bloating chronic September 19, 2024 7:09am Gastroesophageal reflux disease noneactive September 19 7:09am Anxiety and depression chronic [facility] 2024 5:23pm Bloating chronic November 08 5:23pm Chronic constipation chronic [facility] 2024 5:23pm Hyperlipidemia chronic October 5:23pm Hypertension chronic November 08, 2024 5:23pm Migraines chronic November 08 5:23pm Encounter for well woman exa m with routine gynecological exam acute November 09, 2024 8:04am Post-menopausal bleeding acute November 09, 2024 8:04am [facility] Work Phone: 1(805) 185-814602-04-2025 Evaluation note* Diagnosis Onset Date Resolution Status Admit Date Constipation acute September 7:09am Bloating chronic September 19, 2024 7:09am Gastroesophageal reflux disease noneactive September 19 7:09am Anxiety and depression chronic [facility] 2024 5:23pm Bloating chronic November 08 [...] 2024 5:22am Bloating chronic November 29 5:22am [facility] Work Phone: 1(593) 419-867702-04-2025 Evaluation note* Diagnosis Onset Date Resolution Status Admit Date Constipation acute September 7:09am Bloating chronic September 19, 2024 7:09am Gastroesophageal reflux disease noneactive September 19 7:09am Anxiety and depression chronic [facility] 2024 5:23pm Bloating chronic November 08 5:23pm [...] Abdominal pain inactive December 28, 2024 6:52am [facility] Work Phone: [phone]) [phone] Evaluation note* Diagnosis Onset Date Resolution Status Admit Date Constipation acute September 7:09am Bloating chronic September 19, 2024 7:09am Gastroesophageal reflux disease noneactive September 19 7:09am Anxiety and depression chronic [facility] 2024 5:23pm Bloating chronic November 08 5:23pm [...] Post-menopausal bleeding acute January 12, 2025 2:02pm [facility] [employer] Work Phone: [phone]) 511-236211-11-2024 Telephone encounter Note* Telephone Encounter - Nessa Dior LPN - 06/26/2024 2:53 PM EST Addressed at office visit 06/26/24 [facility]11-11-2024 Miscellaneous Notes* Telephone Encounter - Nessa Dior LPN - 06/26/2024 2:53 PM EST Addressed at office visit 06/26/24 documented in this encounterUc Health11-11-2024 History of Present illness Narrative* Toi Olivares [...] PATIENT PRESENTS WITH AN IMPLANTABLE OR ATTACHED TRANSPLANT IMMUNOLOGIST: No RADIOLOGY DEPARTMENT: General X-ray: Exam(s) Completed: Pelvis X-Ray: Pelvis with Hip Bilateral PERIPHERAL IV DATA: Not applicable SIGNED BY: RT Susanna(Harriett) June 26, 2024 10:09 AM documented in this encounterUc Health11-11-2024 NoteHNO ID: [id number] Author: TOI OLIVARES RT(R) Service: ? Author Type: Outboard Motor Assembler Type: Progress Notes Filed: 06/26/2024 10:21 Note [...] PATIENT PRESENTS WITH AN IMPLANTABLE OR ATTACHED TRANSPLANT IMMUNOLOGIST: No RADIOLOGY DEPARTMENT: General X-ray: Exam(s) Completed: Pelvis X-Ray: Pelvis with Hip Bilateral PERIPHERAL IV DATA: Not applicable SIGNED BY: RT Susanna(Harriett) June 26, 2024 10:09 [facility]11-11-2024 Instructions* Patient Instructions* Alejandrina Graham MD - 06/26/2024 9:04 AM EST Look up IT band syndrome and do the exercise for it; documented in this encounterUc Health11-11-2024 NoteHNO ID: [id number] Author: ALEJANDRINA GRAHAM MD Service: ? Author [...] Noticed it first at the trip to [place] last year, the pain is in the thigh muscle, tendon in the groin, and deep inside the side of the trochanter. she feels like her knee deanne under her. She is a little stressed. She quit her job, at [employer]. Looking for a new job [...] TRANSORAL DIAGNOSTIC 01/26/2019 EGD S BALLOON,UTERINE ABLATION [id number] [address] [place] FAMILY HISTORY Problem Relation Age of Onset [...] reviewed and discussed today Current Outpatient Medications: M-V9-csmd-exq-zgrhk-tgua-herb (IMMUNE SUPPORT, VIT C,D,ZINC,) 180 mg-10 mcg- 5.5 mg-150 mg cap Lactobacillus rhamnosus GG (CULTURELLE ORAL) bismuth subsalicylate (DIGESTIVE RELIEF ORAL) YCYJH-MDSJTTBSU-YHURUGVNN MISC propranolol ER (INDERAL LA) 60 mg 24 hr capsule venlafaxine ER (EFFEXOR XR) 37.5 mg 24 hr capsule Mhhwmzcsdwokn-Cqvikcse-Capvnl (MULTIVITAMIN 50 PLUS) tab albuterol HFA (PROVENTIL [...] along the IT Ban (more content not included)...[facility]11-11-2024 History of Present illness Narrative* Alejandrina [...] Noticed it first at the trip to [place] last year, the pain is in the thigh muscle, tendon in the groin, and deep inside the side of the trochanter. she feels like her knee deanne under her. She is a little stressed. She quit her job, at [employer]. Looking for a new job [...] TRANSORAL DIAGNOSTIC 01/26/2019 EGD S BALLOON,UTERINE ABLATION [address]27 1995 [place] FAMILY HISTORY Problem Relation Age of Onset [...] reviewed and discussed today Current Outpatient Medications: R-Z6-zthw-bsk-yqhmv-xaib-herb (IMMUNE SUPPORT, VIT C,D,ZINC,) 180 mg-10 mcg- 5.5 mg-150 mg cap Lactobacillus rhamnosus GG (CULTURELLE ORAL) bismuth subsalicylate (DIGESTIVE RELIEF ORAL) YBHDF-YOYKRGZID-FXZSUUEEE MISC propranolol ER (INDERAL LA) 60 mg 24 hr capsule venlafaxine ER (EFFEXOR XR) 37.5 mg 24 hr capsule Katphygpfznbp-Ufwkmmgi-Ndpcax (MULTIVITAMIN 50 PLUS) tab albuterol HFA (PROVENTIL [...] HIP Alejandrina Graham MD documented in this encounterUc Health08-21-2024 NoteHNO ID: [id number] Author: LAUREL MURRY APRN.LEVEL VIAL GRINDER Service: ? Author Type: Nurse Practitioner Type: [...] date. Medications Current Outpatient Medications Medication Sig X-Y6-bkfc-qyy-gurnw-qijs-herb (IMMUNE SUPPORT, VIT C,D,ZINC,) 180 mg-10 mcg- 5.5 mg-150 mg cap Take 2 capsules by mouth once daily. calcium cit/vit D3/isoflavon 2 (MENOPAUSE RELIEF ORAL) Take 2 capsules by mouth once daily. Lactobacillus rhamnosus GG (CULTURELLE ORAL) Take 1 capsule by mouth once daily. bismuth subsalicylate (DIGESTIVE RELIEF ORAL) Take 1 tablet by mouth two times a day. ABNRN-CQFSOACUG-CUSWNOADU MISC 1 tablet as needed. propranolol ER (INDERAL LA) 60 mg 24 hr capsule take 1 capsule by mouth every day venlafaxine ER (EFFEXOR XR) 37.5 mg 24 hr capsule Take 1 capsule by mouth once daily. Zapvryrgfcrkw-Fvetbwjf-Zngrir (MULTIVITAMIN 50 PLUS) tab Take 1 tablet [...] PANEL Portions of thi (more content not included)...[facility] 04-05-2024 History of Present illness Narrative* Laurel Murry APRN.[facility] - 04/05/2024 9:36 AM EDT SUBJECTIVE Polina [...] date. Medications Current Outpatient Medications Medication Sig J-Q4-plxc-sat-fxbsl-orgo-herb (IMMUNE SUPPORT, VIT C,D,ZINC,) 180 mg-10 mcg- 5.5 mg-150 mg cap Take2 capsules by mouth once daily. calcium cit/vit D3/isoflavon 2 (MENOPAUSE RELIEF ORAL) Take 2 capsules by mouth once daily. Lactobacillus rhamnosus GG (CULTURELLE ORAL) Take 1 capsule by mouth once daily. bismuth subsalicylate (DIGESTIVE RELIEF ORAL) Take 1 tablet by mouth two times a day. VSTKH-XLWHWLCWH-DWKOHCFLA MISC 1 tablet as needed. propranolol ER (INDERAL LA) 60 mg 24 hr capsule take 1 capsule by mouth every day venlafaxine ER (EFFEXOR XR) 37.5 mg 24 hr capsule Take 1 capsule by mouth once daily. Fjxpapogesyrf-Kxxpiqgd-Gzwnqg (MULTIVITAMIN 50 PLUS) tab Take 1 tablet [...] appointment.. Laurel Murry APRN-LALI documented in this encounterUc Health06-03-2024 Telephone encounter Note * Telephone Encounter - [...] Please advise. Thank you. Rafaela Hdz LPN. [facility]06-03-2024 Miscellaneous Notes* Telephone Encounter - Rafaela Hdz [...] you. Rafaela Hdz LPN. documented in this encounterUc Health05-22-2024 History of Present illness Narrative* Laurel Murry APRN.LEVEL VIAL GRINDER - 01/05/2024 9:00 AM EDT SUBJECTIVE Polina [...] Take 1 capsule by mouth once daily. Jodmhraxwakta-Msgnepmi-Dspnem (MULTIVITAMIN 50 PLUS) tab Take 1 tablet [...] medications.. Laurel Murry APRN-LALI documented in this encounterUc Health05-16-2024 Note* Letter - Coordinator, Mammography - 12/30/2023 8:36 AM EDT December 30, 2023 PID: [id number] Polina JPedro Luis Thomson [id number] [address] Dear Ms. Thomson, We are pleased to [...] report will be kept on file at [facility] as part of your permanent medical record and are available for your continuing care. Thank you for allowing us to help in meeting your health care needs. Sincerely, Dr. Islas Interpreting Radiologist [facility] (Normal over 40) [facility]05-16-2024 Miscellaneous Notes* Letter - Coordinator, Mammography - 12/30/2023 8:36 AM EDT December 30, 2023 PID: [id number] Polina BarbaraPedro Luis Thomson [id number] [address] Dear Ms. Thomson, We are pleased to [...] report will be kept on file at [facility] as part of your permanent medical record and are available for your continuing care. Thank you for allowing us to help in meeting your health care needs. Sincerely, Dr. Islas Interpreting Radiologist [facility] (Normal over 40) documented in this encounterUc Health05-15-2024 History of Present illness Narrative* Razia Casanova Mammo Tech - 12/29/2023 9:10 AM EDT [...] PATIENT PRESENTS WITH AN IMPLANTABLE OR ATTACHED TRANSPLANT IMMUNOLOGIST: No RADIOLOGY DEPARTMENT: Mammography PERIPHERAL IV DATA: Not applicable SIGNED BY: Kirby Waiteo Roxann December 29, 2023 9:08 AM documented in this encounterUc Health02-07-2024 History of Present illness Narrative* Laurel Murry APRN.LEVEL VIAL GRINDER - 09/22/2023 9:09 AM EST SUBJECTIVE Polina [...] 0.5 mg Take 0.5 mg by mouth. Pxranlgvrddtm-Mfoaghlo-Cxuerl (MULTIVITAMIN 50 PLUS) tab Take 1 tablet [...] (around 11/21/2023) for recheck on new medication.. KRYSTLE Saeed documented in this encounterUc Health11-08-2023 Instructions* Patient Instructions* Laurel Murry APRN.CNP - 06/23/2023 9:58 AM EST [email or web address] [email or web address] documented in this encounterUc Health11-08-2023 History of Present illness Narrative* Laurel Murry [...] with the circumstances. Journals. Good support from congregational and jie. NO thoughts of self harm, [...] Take 2 tablets by mouth once daily. Vlllodaxptkmi-Yxppwtwy-Scousf (MULTIVITAMIN 50 PLUS) tab Take 1 tablet [...] new medication.. KRYSTLE Saeed documented in this encounterUc Health07-03-2023 History of Present illness Narrative* Laurel Murry [...] bites but has them around her home. [place] like she was drooling earlier, maybe right [...] if they worsen. No follow-ups on file. KRYSTLE Saeed documented in this encounterUc Health05-02-2023 Instructions* Patient Instructions* Doris Sorto MD - [...] such as brie, Camembert, cheddar and feta [place] milk Grains like rice, quinoa and oats Vegetables like eggplant, potatoes, tomatoes, cucumbers and zucchini Fruits such as grapes, oranges, strawberries, blueberries and pineapple Mylicon (simethicone) BEANO documented in this encounterUc Health05-02-2023 History of Present illness Narrative* Doris Sorto MD - 12/15/2022 1:23 PM EDT Polina Jimenez Berto 1965 REFERRING PHYSICIAN: Alejandrina Graham MD CHIEF [...] TRANSORAL DIAGNOSTIC 01/26/2019 EGD S BALLOON,UTERINE ABLATION [id number] [address] [place] Current Outpatient Medications Medication Sig venlafaxine ER [...] Decision Making Level: 2 - Straightforward Doris Sorot MD documented in this encounterUc Health05-02-2023 Nurse Note* Aniyah Cho RN - 12/15/2022 [...] 2018 Aniyah Cho RN documented in this encounterUc Health05-02-2023 History of Present illness Narrative* Alejandrina Graham [...] great. She got a new job, at [employer] at the [employer] unit and it is eye opening for [...] the worst Suicide attempt by drug ingestion ([facility]) 2015 Vitamin D deficiency PAST SURGICAL HISTORY Procedure Laterality Date APPENDECTOMY CALCULUS INFRARED SPECTROSCOPY CARPAL TUNNEL COLONOSCOPY FLX DX W/COLLJ SPEC WHEN PFRMD 01/26/2019 Colonoscopy ESOPHAGOGASTRODUODENOSCOPY TRANSORAL DIAGNOSTIC 01/26/2019 EGD S BALLOON,UTERINE ABLATION [address] [address] [place] FAMILY HISTORY Problem Relation Age of Onset [...] INHALER Alejandrina Graham MD documented in this encounterUc Health05-01-2023 Miscellaneous Notes* Telephone Encounter - Lissy Donis [...] Donis LPN * Telephone Encounter - Noemy Nix Pss - 12/14/2022 9:18 AM EDT Pharmacy verified in [facility] Patient has been identified by name and [...] advise. Noemy Nix Pss documented in this encounterUc Health12-10-2022 History of Present illness Narrative* Esha Rollins APRN.LEVEL VIAL GRINDER - 07/25/2022 8:43 AM EST Subjective Sinus Problem Associated symptoms include congestion, coughing, headaches and a sore throat. Pertinent negatives include no chills, fever or myalgias. Polina Thomson is a 57 year old female who presents with 7days of cough, congestion, headache, sinus pressure and swelling. She has not had a fever. She has had sick contacts at work. She has taken Candida [place] at home for illness. Review of Systems [...] the worst Suicide attempt by drug ingestion ([facility]) 2016 Vitamin D deficiency PAST SURGICAL HISTORY Procedure Laterality Date APPENDECTOMY CALCULUS INFRARED SPECTROSCOPY CARPAL TUNNEL COLONOSCOPY FLX DX W/COLLJ SPEC WHEN PFRMD 01/26/2019 Colonoscopy ESOPHAGOGASTRODUODENOSCOPY TRANSORAL DIAGNOSTIC 01/26/2019 EGD S BALLOON,UTERINE ABLATION [address] [address] [place] ALLERGIES Seasonal Allergies MEDICATIONS pantoprazole DR (PROTONIX) [...] illness Esha Rollins APRN.CNP documented in this encounterUc Health12-10-2022 Instructions* Patient Instructions* Esha Rollins APRN.CNP - [...] Discussed expected course of illness Esha Rollins APRN.LALI Adult Sinusitis Patient Education What is Sinusitis? Sinusitis [nhhf-teo-kmdx-tis] is inflammation of the sinuses or swelling [...] help. You may be instructed to take wizy-wfb-vblquiy medications for symptoms. including fever reducers acetaminophen or ibuprofen, nasal saline spray, cough and cold preparations and decongestants as prescribed by the physician, nurse practitioner or physician butcher's assistant. Self-Care and Prevention: Rest Fluids for hydration Good hand washing Humidifier Avoid smoking and exposure to second hand smoke Avoid sick contacts documented in this encounterUc Health11-25-2022 History of Present illness Narrative* Alejandrina Graham [...] the worst Suicide attempt by drug ingestion ([facility]) 2015 Vitamin D deficiency Previous Surgical History PAST SURGICAL HISTORY Procedure Laterality Date APPENDECTOMY CALCULUS INFRARED SPECTROSCOPY CARPAL TUNNEL COLONOSCOPY FLX DX W/COLLJ SPEC WHEN PFRMD 01/26/2019 Colonoscopy ESOPHAGOGASTRODUODENOSCOPY TRANSORAL DIAGNOSTIC 01/26/2019 EGD S BALLOON,UTERINE ABLATION [id number] [address] [place] Family History FAMILY HISTORY Problem Relation Age [...] miralax Alejandrina Graham MD [facility]22 Miscellaneous Notes* Telephone Encounter - Nila Ott [...] Regards, Alejandrina Graham MD [facility]-2022 Miscellaneous Notes* Telephone Encounter - Maninder Lui RPh - 06/18/2022 9:[address] Graham, At [facility] they have a pharmacist that [...] genetic testing. [email or web address] I have pended the referral for pharmacogenomics. The phone number for patient to schedule is as follows: [phone]. They may be able to offer virtual visits if patient not able to travel to [place] for appointment. Maninder Lui, PharmD, BCACP Primary [...] Regards, Alejandrina Graham MD documented in this encounterU[facility]10-25-2022 History of Present illness Narrative* Alejandrina Graham [...] TRANSORAL DIAGNOSTIC 01/26/2019 EGD S BALLOON,UTERINE ABLATION [id number] [address] [place] FAMILY HISTORY Problem Relation Age of Onset [...] RELEASE Alejandrina Graham MD [facility] Author Michael Grier [facility] Note Date/Time November 29, 2024 6:3 8am [facility] Medical Records Department [address] [place] [address] Pre-Anesthesia Evaluation 11/29/24 0638 MR#: [id number] Acct: [id number] Name: POLINA THOMSON Rep #:[id number] : 1965 59 From: Michael Grier MD PCP: Dr. 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 Hx Hospitalization No 11/24/24 13:43 Any Problems [...] take am of surgery PONV PONV - electrical assembler: PONV - electrical assembler Female Yes 11/24/24 13:43 HX of Motion [...] 11/29/24 05:40 Respiratory Assessment Respiratory Assessment - electrical assembler: Respiratory Tract Infection Hx - electrical assembler Hx Respiratory Tract Infection No 11/24/24 13:43 STOP Sleep Apnea STOP Sleep Apnea - electrical assembler: STOP Sleep Apnea - electrical assembler Hx Hypertension No 11/24/24 13:43 Hx Sleep [...] Tobacco Use History Tobacco Use History - electrical assembler: Tobacco Use History - electrical assembler Tobacco Use Smoking Status Former smoker 11/24/24 13:43 Hx Tobacco Use No 11/24/24 13:43 Years Smoking Packs Smoked per Day Smoking Cessation Date was No - quit smoking greater 11/24/24 13:43 within the last 15 years than 15 years ago Hx Smoking Cessation Date Hx Smoking Cessation Counseling Hematologic Medial History Hematologic Hx - electrical assembler: 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 Hx of Blood Transfusion No 11/24/24 13:43 [...] confused, unrespo /Reproduction History /Reproductive History - electrical assembler: /Reproductive Hx- electrical assembler Hx Now No 11/24/24 13:43 Gestational Age [...] mg PO QHS 09/08/24 History hr,extended release dvxlbyig-erl-ffkyz ac 400 tab PO 11/08/24 11/27/24 His tory mcg-calcium carb 500 mg-vit K1 20 mcg tablet (Women's 50 Plus Multivitamin) sennosides 8.6 mg capsule (senna) 8.6 mg PO QDAY PRN c onstipation 11/08/24 Unknown History vit C 180 mg-D3 10 mcg-zinc 5.5 cap PO 11/08/24 History fg-yavxcr-ridrjvl-calvin-herb capsule (Immune Support (vit c, d and [...] 3 current occupational status: employed current occupation: [employer] current occupational exposures/hazards: No pets and [...] MD > Date _ Michael Grier MD Cosigner Signature: Date CC: ~ Signed [facility] Work Phone: Consult note Author Lele Keys [facility] Note Date/Time November 29, 2024 7:0 9am [facility] Medical Records Department [address] [place] [address] Anesthesia Postop Eval I 11/29/24 0708 MR#: [id number] Acct: [id number] Name: POLINA THOMSON Rep #:[id number] : 1965 59 From: Lele Keys PCP: Dr. Willie Adams MD [facility] C Location: [place] [address] Anesthesia: Postop Eval I Current Vital Signs [...] Lele Wen Signature: Date CC: ~ Signed [facility] Work Phone: Consult note Author Michael Grier [facility] Note Date/Time November 29, 2024 7:4 8am [facility] Medical Records Department [address] [place] [address] Anesthesia Postop Eval II 11/29/24 0730 MR#: [id number] Acct: [id number] Name: POLINA THOMSON Rep #:[id number] : 1965 59 From: Michael Grier MD PCP: Dr. Willie Adams MD Status:R [facility] Y Race: C Location: [place] [address] Anesthesia Postop Eval I Sum Postop Eval [...] Level: 0 nausea: No Vomiting: No 11/29/24 7963 <Electronically signed by Michael Grier MD > Date _ Michael Grier MD Cosigner Signature: Date CC: ~ Signed [facility] Work Phone: Consult note Author Lakhwinder Hernandezbitt [facility] Note Date/Time January 30, 2025 5:00 pm [facility] Medical Records Department [address] [place] [address] Anesthesia Postop Eval I 01/30/25 1537 MR#: [id number] Acct: [id number] Name: POLINA THOMSON Rep #:[id number] : 1965 59 From: Lakhwinder THOMASON PCP: Dr. Willie Adams MD Status:R EG [facility] Y Race: C Location: [place] [address] Anesthesia: Postop Eval I Current Vital Signs Temperature: 97.2 F Pulse Rate: 54 Blood Pressure: 108/56 Respiratory Rate: 16 Pulse Ox: 97 Assessment Airway patent: Yes Spontaneous unlabored respirations: Yes nausea: No Vomiting: No Anesthesia Complication: No Fluid Hydration Crystalloid volume administer (ml): 900 Total IV fluid infused: 900 Progress Note Anesthesia document: Postop Eval 1 completed: Yes 01/30/25 1537 <Electronically signed by Lakhwinder Perez CRNA> Date _ Lakhwinder Perez CRNA Cosigner Signature: Date CC: ~ Signed [facility] Work Phone: Discharge summary Author Gayatri Weinstein [facility] Note Date/Time January 30, 2025 5:00 pm [facility] Medical Records Department [address] [place] [address] Instructions for Home/Discharge Instructions 01/30/25 1635 MR#: [id number] Acct: [id number] Name: POLINA THOMSON Rep #:[id number] : 1965 59 From: Gayatri balderas MD PCP: Dr. Willie Adams MD Status:R EG [facility] Discharge Instructions Diet Discharge Diet: No restrictions [...] Up With: Gayatri Weinstein MD When: Call [phone] to schedule appointment. Test Results: Test results from this visit will be discussed in further detail at your follow- up appointment, if applicable. Discharge Plan Admission Attending Provider: Gayatri Weinstein Primary Care Provider: Willie Adams Instructions Print Language: Turkish Discharge Orders/Prescriptions Prescriptions: No Action Women's 50 [...] can be placed): Home, Self Care 01/30/25 5345<Electronically signed by Gayatri Weinstein MD>Gayatri Weinstein MD CC: Dr. Willie Adams MD ~ Signed [facility] Work Phone: Evaluation note* Diagnosis Anxiety [...] unspecified single disease [facility] Diagnosis Anxiety and depression- Primary Dysthymic disorder [facility]* Diagnosis Anxiety and depression- Primary Dysthymic disorder Belching Flatulence, eructation, and gas pain Constipation, unspecified constipation type documented in this encounter [facility]* Diagnosis Bacterial sinusitis- Primary Unspecified sinusitis (chronic) documented in [facility] encounter [facility]* Diagnosis Encounter for screening mammogram for breast cancer documented in [facility] encounter [facility]* Diagnosis Hyperlipidemia, unspecified hyperlipidemia type- Primary Anxiety and depression Dysthymic disorder Belching Flatulence, eructation, and gas pain RUQ pain Abdominal pain, right upper quadrant Allergy to perfume Allergy, unspecified not elsewhere classified Airway compromise Other diseases of respiratory system, not elsewhere classified Panic attacks Panic disorder without agoraphobia documented in this encounter [facility] note* Diagnosis Eructation Flatulence, eructation, and gas pain Abdominal bloating Flatulence, eructation, and gas pain RUQ pain Abdominal pain, right upper quadrant documented in this encounter [facility]* Diagnosis Anxiety and depression Dysthymic disorder documented in this encounter [facility]* Diagnosis Rash and nonspecific skin eruption- Primary Rash and other nonspecific skin eruption Arthralgia, unspecified joint Malaise Other malaise and fatigue documented in this encounter [facility] note* Diagnosis Anxiety and depression- Primary Dysthymic disorder Panic attacks Panic disorder without agoraphobia Moderate persistent asthma without complication Unspecified asthma Allergy to perfume Allergy, unspecified not elsewhere classified Pain in right leg documented in this encounter [facility]* Diagnosis Primary hypertension- Primary Unspecified essential hypertension Anxiety and depression Dysthymic disorder Moderate persistent asthma without complication Unspecified asthma Vision disturbance Unspecified visual disturbance Encounter for therapeutic drug monitoring documented in this encounter [facility]* Diagnosis Hyperlipidemia Other and unspecified hyperlipidemia documented in this encounter [facility] note* Diagnosis Encounter for screening mammogram for breast cancer documented in this encounter [facility]* Diagnosis Primary hypertension- Primary Unspecified essential hypertension Anxiety and depression Dysthymic disorder Hyperlipidemia, unspecified hyperlipidemia type documented in this encounter [facility]* Diagnosis Thyroid enlargement- Primary Goiter, unspecified Weight gain Abnormal weight gain Anxiety and depression Dysthymic disorder Encounter for therapeutic drug monitoring Thyroid enlargement Goiter, unspecified [facility] Diagnosis Thyroid enlargement Goiter, unspecified [facility] Diagnosis Trochanteric bursitis of right hip- Primary Enthesopathy of hip region Anxiety and depression Dysthymic disorder Left hip pain Pain in joint, pelvic region and thigh [facility] Diagnosis Anxiety and depression Dysthymic disorder [facility] Diagnosis Left hip pain Pain in joint, pelvic region and thigh [facility]* Diagnosis Encounter for screening mammogram for breast cancer documented in this encounter [facility] Author Adria Cisse [facility] Note Date/Time November 29, 2024 6:4 7am [facility] Medical Records Department [address] [place] [address] History & Physical Exam 11/29/24 0645 MR#: [id number] Acct: [id number] Name: POLINA THOMSON Rep #:[id number] : 1965 59 From: Adria Cisse DO PCP: Dr. Willie Adams MD Status:R [facility] Location: [place] [address] HPI - General General Date of Admission: 11/29/24 Date of Service: 11/29/24 HPI Narrative POLINA THOMSON, is a 59 F who presents Chief Complaint: bloating Details: POLINA THOMSON, is a 59 F who presents to the office today for establishment with [facility]. Pt has had GI issues for many [...] colonoscopy was in 2019 with normal findings. [facility] Medical History (Updated 11/29/24 @ 06:[address] 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 Her last colonoscopy was normal in 2018 and her constipation is not new. She [...] Willie Adams MD; Adria Cisse DO~ Signed [facility] Work Phone: Hospital Discharge instructionsAmbulatory Orders* Nutrition Referral Location: [facility] Work Phone: Reason for referral (narrative)* Diagnostic Procedure Only (Routine) - Pending Review Specialty Diagnoses / Procedures Referred By Britany zapien Referred To Contact [facility] Diagnoses Encounter for screening mammogram for breast cancer Procedures TORSTEN SCREENING SCREENING MAMMOGRAPHY BI 2-VIEW BREAST INC Alejandrina Zamora MD [address] [place] [address] [facility] [address] [place] [address] Referral ID Status Reason Start Date Expiration Date Visits Requested Visits Authorized [id number] Pending Review Auto-Generat ed Referral 08/26/2022 09/25/[address] [facility] for referral (narrative)* Diagnostic Procedure Only (Urgent) - Closed Specialty Diagnoses / Procedures Referred By Contac t Referred To Contact US IMAGING Diagnoses Thyroid enlargement Procedures US THYROID/PARATHYROID US THYROID/PARATHYROID US SOFT TISSUE HEAD & NECK REAL [facility] APRN.CNP [address] [place], [place] [phone] [place] [address] Referral ID Status Reason Start Date Expiration Date V isits Requested Visits Authorized [id number] Closed Auto-Generate d Referral 04/05/2024 05/05/2025 1 1 * Diagnostic Procedure Only (Urgent) - Closed Specialty Diagnoses / Procedures [facility] Referred To Contact [facility] Diagnoses Thyroid enlargement Procedures US THYROID/PARATHYROID US THYROID/PARATHYROID US SOFT TISSUE HEAD & NECK REAL TIME IM[facility] APRN.LEVEL VIAL GRINDER [address] [place], [place] [phone] [place] [address] Referral ID Status Reason Start Date Expiration Date V isits Requested Visits Authorized [id number] Closed Auto-Generate d Referral 04/05/2024 05/05/[address] [facility] for referral (narrative)* Diagnostic Procedure Only (Urgent) - Closed Specialty Diagnoses / Procedures [facility] Referred To Contact US IMAGING Diagnoses Thyroid enlargement Procedures US THYROID/PARATHYROID US THYROID/PARATHYROID US SOFT TISSUE HEAD & NECK REAL TIME IMGE [facility] APRN.CNP [address] [place] [address] [place] [address] Referral ID Status Reason Start Date Expiration Date V isits Requested Visits Authorized [id number] Closed Auto-Generate d Referral 04/05/2024 05/05/[address] [facility] for referral (narrative)* Diagnostic Procedure Only (Routine) - Pending Review Specialty Diagnoses / Procedures Referred By Aleidaac t Referred To Contact XR IMAGING Diagnoses Left hip pain Procedures XR HIP BILATERAL 5V PEL/AP/LAT EACH HIP RADEX HIPS BILATERAL WITH PELVIS MINIMUM 5 VIEWS Alejandrina Graham MD [address] [place] [address] [place] [address] Referral ID Status Reason Start Date Expiration Date Visits Requested Visits Authorized [id number] Pending Review Auto-Generat ed Referral 07/26/[address] [facility] for referral (narrative)No reason for referral information [facility]er[facility] Work Phone: Reason for visit Narrative* Diagnostic Procedure Only (Routine) - Closed Specialty Diagnoses / Procedures Referred By Contac t Referred To Contact BR IMAGING Diagnoses Encounter for screening mammogram for breast cancer Procedures TORSTEN SCREENING SCREENING MAMMOGRAPHY BI 2-VIEW BREAST INC CAD Alejandrina Graham MD [address] [place] [phone] [facility] [address] [place] [address] Referral ID Status Reason Start Date Expiration Date V isits Requested Visits Authorized [id number] Closed Auto-Generate d Referral 08/25/2023 09/23/[address] [facility] for visit Narrative* Diagnostic Procedure Only (Urgent) - Closed Specialty Diagnoses / Procedures Referred By Contac t Referred To Contact US IMAGING Diagnoses Thyroid enlargement Procedures US THYROID/PARATHYROID US THYROID/PARATHYROID US SOFT TISSUE HEAD & NECK REAL TIME IMGE [facility]aurel Bunch APRN.LEVEL VIAL GRINDER [address] [place] [address] [place] [address] Referral ID Status Reason Start Date Expiration Date V isits Requested Visits Authorized [id number] Closed Auto-Generate d Referral 04/05/2024 05/05/[address] [facility] for visit Narrative* Diagnostic Procedure Only (Routine) - Pending Review Specialty Diagnoses / Procedures Referred By Contac t Referred To Contact XR IMAGING Diagnoses Left hip pain Procedures XR HIP BILATERAL 5V PEL/AP/LAT EACH HIP RADEX HIPS BILATERAL WITH PELVIS MINIMUM 5 VIEWS Alejandrina Graham MD [address] [place] [address] [place] [address] Referral ID Status Reason Start Date Expiration Date Visits Requested Visits Authorized [id number] Pending Review Auto-Generat ed Referral 4 07/26/2025 1 1 [facility] Family History No Family History [...] Do you have a Healthcare Power of Special Population Paraprofessional? Yes November 24, 2024 1:43pm Name of Medical Power of Special Population Paraprofessional November 24, 2024 1:43pm Advance Directive Response Recorded Date/ Time Living Will Yes November 24, 2024 1:43pm Do you have a Healthcare Power of Special Population Paraprofessional? Yes November 24, 2024 1:43pm Name of Medical Power of Special Population Paraprofessional November 24, 2024 1:43pm Do you have a Healthcare Power of Special Population Paraprofessional? Yes January 17, 2025 2:59pm Advance Directive Response Recorded Date/ Time Do you have a Healthcare Power of Special Population Paraprofessional? Yes January 17, 2025 2:59pm Reason for Referral Specialty Diagnoses / Procedures Referred By Britany t Referred To Contact Diagnoses Allergy to perfume Airway compromise Alejandrina Graham MD [address] [place] [address] Referral ID Status Reason Start Date Expiration Date Visits Re quested Visits Authorized [id number] Closed 1 1 Specialty Diagnoses / Procedures Referred By Britany t Referred To Contact General Surgery Diagnoses RUQ pain Procedures CONSULT TO GENERAL SURGERY OFFICE/OUTPATIENT [facility] 60-74 MINUTES Alejandrina Graham MD [address] [place] [address] Referral ID Status Reason Start Date Expiration Date V isits Requested Visits Authorized [id number] Closed PCP Requested Referral 12/15/2022 12/15/2023 1 1 Chief Complaint and Reason for Visit Chief Complaint Admit Date Gastroesophageal reflux disease (GERD) F ebruary 2024 7:09am ABD PAIN October 04, 2024 1:03pm [employer]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 SENT November 08, 2024 5: 23pm E ORDERS November 09, 2024 6:4 0am 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 MENOPAUSAL [...] Admit Date Gastroesophageal reflux disease (GERD) F [facility]2024 7:09am ABD PAIN October 04, 2024 1:03pm R[employer]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 SENT November 08, 2024 5: 23pm E ORDERS November 09, 2024 6:4 0am 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 MENOPAUSAL [...] 7:09am ABD PAIN October 04, 2024 1:03pm ROT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 SENT November 08, 2024 5: 23pm E ORDERS November 09, 2024 6:4 0am 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 MENOPAUSAL [...] 7:09am ABD PAIN October 04, 2024 1:03pm ROT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 SENT November 08, 2024 5: 23pm E ORDERS November 09, 2024 6:4 0am 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 MENOPAUSAL [...] Date ABD PAIN October 04, 2024 1:03pm R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 SENT November 08, 2024 5: 23pm E ORDERS November 09, 2024 6:4 0am 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 MENOPAUSAL [...] Date ABD PAIN October 04, 2024 1:03pm ROT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 SENT November 08, 2024 5: 23pm E ORDERS November 09, 2024 6:4 0am 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 MENOPAUSAL [...] 30, 2025 12:07pm Chief Complaint Admit Date ROT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 SENT November 08, 2024 5: 23pm E ORDERS November 09, 2024 6:4 0am 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] 2024 6:52a m GERD (gastroesophageal reflux disease) [facility] 2024 6:52am Abdominal pain December 28, 2024 6:52a m Post-menopausal bleeding January 12, 2025 2:02pm Post-menopausal bleeding January 30, 2025 12:07pm Post-menopausal bleeding February 12, 2025 7:52am Aortic calcification February 14, 2025 5:21 pm Anxiety and depression February 14, 2025 5: 21pm Chronic abdominal pain February 14, 2025 5: 21pm Dermatitis February 14, 2025 5:21p m Hyperlipidemia February 14, 2025 5:21p m Migraines February 14, 2025 5:21p m Obesity (BMI 30.0-34.9) February 14, 2025 5 :21pm Chief Complaint Admit Date Medication issues December 28, 2024 6:52a m Consult D&C January 12, 2025 2:02p m PREOP January 22, 2025 7:29a m ABD PAIN January 23, 2025 6:16 am Hysteroscopy,Dilation and Curettage January 30, 2025 7:35am Hysteroscopy,Dilation and Curettage January 30, 2025 12:07pm 2 wk D&C hysteroscopy February 12, 2025 7: 52am screening mammogram February 13, 2025 4:45p m 3 M FU February 14, 2025 5:21p m MNT April 02, 2025 3: 45pm Reason for Visit Admit Date Constipation December 28, 2024 6:52a m Eructation December 28, 2024 6:52a m GERD (gastroesophageal reflux disease) M ay 2024 6:52am Abdominal pain December 28, 2024 6:52a m Post-menopausal bleeding January 12, 2025 2:02pm Post-menopausal bleeding January 30, 2025 12:07pm Post-menopausal bleeding February 12, 2025 7:52am Aortic calcification February 14, 2025 5:21 pm Anxiety and depression February 14, 2025 5: 21pm Chronic abdominal pain February 14, 2025 5: 21pm Dermatitis February 14, 2025 5:21p m Hyperlipidemia February 14, 2025 5:21p m Migraines February 14, 2025 5:21p m Obesity (BMI 30.0-34.9) February 14, 2025 5 :21pm Chief Complaint Admit Date PREOP January 22, 2025 7:29a m ABD PAIN January 23, 2025 6:16 am Hysteroscopy,Dilation and Curettage January 30, 2025 7:35am Hysteroscopy,Dilation and Curettage January 30, 2025 12:07pm 2 wk D&C hysteroscopy February 12, 2025 7: 52am screening mammogram February 13, 2025 4:45p m 3 M FU February 14, 2025 5:21p m MNT April 02, 2025 3: 45pm NEEDS ORDER April 26, 2025 2:28pm MNT May 01, 2025 3:54pm Reason for Visit Admit Date Post-menopausal bleeding January 30, 2025 12:07pm Post-menopausal bleeding February 12, 2025 7:52am Aortic calcification February 14, 2025 5:21 pm Anxiety and depression February 14, 2025 5: 21pm Chronic abdominal pain February 14, 2025 5: 21pm Dermatitis February 14, 2025 5:21p m Hyperlipidemia February 14, 2025 5:21p m Migraines February 14, 2025 5:21p m Obesity (BMI 30.0-34.9) February 14, 2025 5 :21pm Chief Complaint Admit Date PREOP January 22, 2025 7:29a m ABD PAIN January 23, 2025 6:16 am Hysteroscopy,Dilation and Curettage January 30, 2025 7:35am Hysteroscopy,Dilation and Curettage January 30, 2025 12:07pm 2 wk D&C hysteroscopy February 12, 2025 7: 52am screening mammogram February 13, 2025 4:45p m 3 M FU February 14, 2025 5:21p m MNT April 02, 2025 3: 45pm NEEDS ORDER April 26, 2025 2:28pm MNT May 01, 2025 3:54pm 3 M FU May 16, 2025 7: 22am INT LABS May 16, 2025 8: 16am Reason for Visit Admit Date Post-menopausal bleeding January 30, 2025 12:07pm Post-menopausal bleeding February 12, 2025 7:52am Aortic calcification February 14, 2025 5:21 pm Anxiety and depression February 14, 2025 5: 21pm Chronic abdominal pain February 14, 2025 5: 21pm Dermatitis February 14, 2025 5:21p m Hyperlipidemia February 14, 2025 5:21p m Migraines February 14, 2025 5:21p m Obesity (BMI 30.0-34.9) February 14, 2025 5 :21pm Musculoskeletal pain of extremity Octobe r 2024 7:22am Anxiety and depression May 16, 2025 7:22am Chronic constipation May 16, 2025 7 :22am GERD (gastroesophageal reflux disease) O ctober 2024 7:22am Hyperlipidemia May 16, 2025 7: 22am Migraines May 16, 2025 7: 22am Obesity (BMI 30.0-34.9) May 16 7:22am Tinnitus May 16, 2025 7: 22am Additional Source Comments INFORMATION SOURCE (unrecogn ized section and content) DATE CREATED AUTHOR 09/05/2020 [facility] DATE CREATED AUTHOR AUTHORSpencer ALLRED 04/10/2022 [facility] DATE CREATED AUTHOR AUTHOR'S ORGANIZ ATION 03/05/2025 [facility] DATE CREATED AUTHOR AUTHOR'S ORGANIZ ATION 06/23/2025 [facility] Source Comments (unrecognize d section and content) In the event this informatio n is protected by the Federal Confidentiality of Alcohol and Drug Abuse Patient Records regulations: The Federal rules restrict any use of the information to criminally investigate or prosecute any alcohol or drug abuse patient.[facility] Health[facility] the event this information is protected by the Federal Confidentiality of Alcohol and Drug Abuse Patient Records regulations: The Federal rules restrict any use of the information to criminally investigate or prosecute any alcohol or drug abuse patient.[facility] Health[facility] the event this information is protected by the Federal Confidentiality of Alcohol and Drug Abuse Patient Records regulations: The Federal rules restrict any use of the information to criminally investigate or prosecute any alcohol or drug abuse patient.[facility] Health[facility] the event this information is protected by the Federal Confidentiality of Alcohol and Drug Abuse Patient Records regulations: The Federal rules restrict any use of the information to criminally investigate or prosecute any alcohol or drug abuse patient.[facility] HealthIn the event this information is protected by the Federal Confidentiality of Alcohol and Drug Abuse Patient Records regulations: The Federal rules restrict any use of the information to criminally investigate or prosecute any alcohol or drug abuse patient.[facility] HealthIn the event this information is protected by the Federal Confidentiality of Alcohol and Drug Abuse Patient Records regulations: The Federal rules restrict any use of the information to criminally investigate or prosecute any alcohol or drug abuse patient.[facility] HealthIn the event this information is protected by the Federal Confidentiality of Alcohol and Drug Abuse Patient Records regulations: The Federal rules restrict any use of the information to criminally investigate or prosecute any alcohol or drug abuse patient.[facility] HealthIn the event this information is protected by the Federal Confidentiality of Alcohol and Drug Abuse Patient Records regulations: The Federal rules restrict any use of the information to criminally investigate or prosecute any alcohol or drug abuse patient.[facility] HealthIn the event this information is protected by the Federal Confidentiality of Alcohol and Drug Abuse Patient Records regulations: The Federal rules restrict any use of the information to criminally investigate or prosecute any alcohol or drug abuse patient.[facility] HealthIn the event this information is protected by the Federal Confidentiality of Alcohol and Drug Abuse Patient Records regulations: The Federal rules restrict any use of the information to criminally investigate or prosecute any alcohol or drug abuse patient.[facility] HealthIn the event this information is protected by the Federal Confidentiality of Alcohol and Drug Abuse Patient Records regulations: The Federal rules restrict any use of the information to criminally investigate or prosecute any alcohol or drug abuse patient.[facility] HealthIn the event this information is protected by the Federal Confidentiality of Alcohol and Drug Abuse Patient Records regulations: The Federal rules restrict any use of the information to criminally investigate or prosecute any alcohol or drug abuse patient.[facility] HealthIn the event this information is protected by the Federal Confidentiality of Alcohol and Drug Abuse Patient Records regulations: The Federal rules restrict any use of the information to criminally investigate or prosecute any alcohol or drug abuse patient.[facility] HealthIn the event this information is protected by the Federal Confidentiality of Alcohol and Drug Abuse Patient Records regulations: The Federal rules restrict any use of the information to criminally investigate or prosecute any alcohol or drug abuse patient.[facility] HealthIn the event this information is protected by the Federal Confidentiality of Alcohol and Drug Abuse Patient Records regulations: The Federal rules restrict any use of the information to criminally investigate or prosecute any alcohol or drug abuse patient.[facility] HealthIn the event this information is protected by the Federal Confidentiality of Alcohol and Drug Abuse Patient Records regulations: The Federal rules restrict any use of the information to criminally investigate or prosecute any alcohol or drug abuse patient.[facility] HealthIn the event this information is protected by the Federal Confidentiality of Alcohol and Drug Abuse Patient Records regulations: The Federal rules restrict any use of the information to criminally investigate or prosecute any alcohol or drug abuse patient.[facility] HealthIn the event this information is protected by the Federal Confidentiality of Alcohol and Drug Abuse Patient Records regulations: The Federal rules restrict any use of the information to criminally investigate or prosecute any alcohol or drug abuse patient.[facility] HealthIn the event this information is protected by the Federal Confidentiality of Alcohol and Drug Abuse Patient Records regulations: The Federal rules restrict any use of the information to criminally investigate or prosecute any alcohol or drug abuse patient.[facility] HealthIn the event this information is protected by the Federal Confidentiality of Alcohol and Drug Abuse Patient Records regulations: The Federal rules restrict any use of the information to criminally investigate or prosecute any alcohol or drug abuse patient.[facility] HealthIn the event this information is protected by the Federal Confidentiality of Alcohol and Drug Abuse Patient Records regulations: The Federal rules restrict any use of the information to criminally investigate or prosecute any alcohol or drug abuse patient.[facility] HealthIn the event this information is protected by the Federal Confidentiality of Alcohol and Drug Abuse Patient Records regulations: The Federal rules restrict any use of the information to criminally investigate or prosecute any alcohol or drug abuse patient.[facility] HealthIn the event this information is protected by the Federal Confidentiality of Alcohol and Drug Abuse Patient Records regulations: The Federal rules restrict any use of the information to criminally investigate or prosecute any alcohol or drug abuse patient.[facility] HealthIn the event this information is protected by the Federal Confidentiality of Alcohol and Drug Abuse Patient Records regulations: The Federal rules restrict any use of the information to criminally investigate or prosecute any alcohol or drug abuse patient.[facility] HealthIn the event this information is protected by the Federal Confidentiality of Alcohol and Drug Abuse Patient Records regulations: The Federal rules restrict any use of the information to criminally investigate or prosecute any alcohol or drug abuse patient.[facility] HealthIn the event this information is protected by the Federal Confidentiality of Alcohol and Drug Abuse Patient Records regulations: The Federal rules restrict any use of the information to criminally investigate or prosecute any alcohol or drug abuse patient.[facility] Reason for Visit (unrecogniz ed section and content) Reason Comments Follow Up follow up -labs Reason Comments Depression Reason Comments Sinus Problem sinus pressure, drai nage, headache, sore throat, ear pain, cough x 6 days Reason Comments Follow Up c/o vomiting and rian sea this morning Reason Comments Consult RUQ Specialty Diagnoses / Procedures Referred By Britany t Referred To Contact General Surgery Diagnoses RUQ pain Procedures CONSULT TO GENERAL SURGERY OFFICE/OUTPATIENT NEW [facility] 60-74 MINUTES Alejandrina Graham MD [address] [place] [address] Referral ID Status Reason Start Date Expiration Date V isits Requested Visits Authorized [id number] Closed PCP Requested Referral 12/15/2022 12/15/2023 1 [...] Care Teams (unrecognized sec tion and content) Machine Assistant Relationship Specialty Start Date End Date Alejandrina Graham MD [address] [place], [place] [id number] PCP - General Internal Medicine 10/24/18 Machine Assistant Relationship Specialty Start Date End Date Alejandrina Graham MD [address] [place] [address] PCP - General Internal Medicine 10/24/18 Machine Assistant Relationship Specialty Start Date End Date Alejandrina Graham MD [address] [place] [address] PCP - General Internal Medicine 10/24/18 Machine Assistant Relationship Specialty Start Date End Date Alejandrina Graham MD [address] [place] [address] PCP - General Internal Medicine 10/24/18 Machine Assistant Relationship Specialty Start Date End Date Alejandrina Graham MD [address] [place] [address] PCP - General Internal Medicine 10/24/18 Machine Assistant Relationship Specialty Start Date End Date Alejandrina Graham MD [address] [place] [address] PCP - General Internal Medicine 10/24/18 Machine Assistant Relationship Specialty Start Date End Date Alejandrina Graham MD [address] [place] [address] PCP - General Internal Medicine 10/24/18 Machine Assistant Relationship Specialty Start Date End Date Alejandrina Graham MD [address] [place] [address] PCP - General Internal Medicine 10/24/18 Machine Assistant Relationship Specialty Start Date End Date Alejandrina Graham MD [address] [place] [address] PCP - General Internal Medicine 10/24/18 Machine Assistant Relationship Specialty Start Date End Date Alejandrina Graham MD [address] [place] [address] PCP - General Internal Medicine 10/24/18 Machine Assistant Relationship Specialty Start Date End Date Alejandrina Graham MD [address] [place] [address] PCP - General Internal Medicine 10/24/18 Machine Assistant Relationship Specialty Start Date End Date Alejandrina Graham MD [address] [place] [address] PCP - General Internal Medicine 10/24/18 Machine Assistant Relationship Specialty Start Date End Date Alejandrina Graham MD [address] [place] [address] PCP - General Internal Medicine 10/24/18 Machine Assistant Relationship Specialty Start Date End Date Alejandrina Graham MD [address] [place] [address] PCP - General Internal Medicine 10/24/18 Machine Assistant Relationship Specialty Start Date End Date Alejandrina Graham MD [address] [place] [address] PCP - General Internal Medicine 10/24/18 Machine Assistant Relationship Specialty Start Date End Date Alejandrina Graham MD [address] [place] [address] PCP - General Internal Medicine 10/24/18 Machine Assistant Relationship Specialty Start Date End Date Alejandrina Graham MD [address] [place] [address] PCP - General Internal Medicine 10/24/18 Machine Assistant Relationship Specialty Start Date End Date Alejandrina Graham MD [address] [place] [address] PCP - General Internal Medicine 10/24/18 Machine Assistant Relationship Specialty Start Date End Date Alejandrina Graham MD [address] [place] [address] PCP - General Internal Medicine 10/24/18 Machine Assistant Relationship Specialty Start Date End Date Alejandrina Graham MD [address] [place], [place] [id number] PCP - General Internal Medicine 10/24/18 Machine Assistant Relationship Specialty Start Date End Date Alejandrina Graham MD [address] [place], [place] [id number] PCP - General Internal Medicine 10/24/18 Machine Assistant Relationship Specialty Start Date End Date Alejandrina Graham MD [address] [place], [place] [address] PCP - General Internal Medicine 10/24/18 Team [...] Care Provider Active Start: November 13, 2024 CANDICE TangC Attending Provider [...] 2024 End: November 23, 2024 Sharon Whiting ROTARY 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, ROTARY 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-C Attending Provider Active Start: November 23, 2024 End: November 23, 2024 Team Status: Active Member Role Status Dates Dr. Willie Adams MD Primary Care Provider Active Start: November 23, 2024 Sharon Whiting ROTARY 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, ROTARY 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-C Attending Provider Active Start: November 23, 2024 Sharon Whiting ROTARY 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, ROTARY 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-C Referring Provider Active Start: November 23, 2024 [...] 2024 End: November 23, 2024 Sharon Whiting ROTARY 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, ROTARY 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-C Attending Provider Active Start: November 23, 2024 End: November 23, 2024 Sharon Whiting ROTARY 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, ROTARY 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-C Referring Provider Active Start: November 23, 2024 [...] November 13, 2024 End: November 13, 2024 Fadia Lucio NP-C Attending Provider Active Start: November 13, 2024 End: November 13, 2024 Team Status: Inactive Member Role/Relationship Status Dates Dr. Willie Adams MD Primary Care Provider Active Start: November 23, 2024 End: November 23, 2024 Dr. Willie Adams MD Referring Provider Active Start: November 23, 2024 End: November 23, 2024 Sharon Whiting NP, ROTARY 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-C Attending Provider Active Start: November 23, 2024 End: November 23, 2024 Team Status: Inactive Member Role/Relationship Status Dates Dr. Willie Adams MD Primary Care Provider Active Start: November 23, 2024 End: November 23, 2024 Sharon Whiting NP, ROTARY 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-C Attending Provider Active Start: November 23, 2024 End: November 23, 2024 Sharon Whiting NP, ROTARY 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-C Referring Provider Active Start: November 23, 2024 [...] February 12, 2025 End: February 12, 2025 Team Status: Active Member Role/Relationship Status Dates NIKOLE Tang Attending Provider Active Start: February 13, 2025 NIKOLE Tang Referring Provider Active Start: February 13, 2025 Dr. Willie Adams MD Primary Care Provider Active Start: February 13, 2025 Team Status: Inactive Member Role/Relationship Status Dates Dr. Willie Adams MD Primary Care Provider Active Start: February 14, 2025 End: February 14, 2025 Dr. Willie Adams MD Attending Provider Active Start: February 14, 2025 End: February 14, 2025 Dr. Willie Adams MD Referring Provider Active Start: February 14, 2025 End: February 14, 2025 Team Status: Inactive Member Role/Relationship Status Dates NIKOLE Tang Attending Provider Active Start: February 13, 2025 End: February 13, 2025 NIKOLE Tang Referring Provider Active Start: February 13, 2025 End: February 13, 2025 Dr. Willie Adams MD Primary Care Provider Active Start: February 13, 2025 End: February 13, 2025 Machine Assistant Relationship Specialty Start Date End Date Alejandrina Graham MD [address] [place], [place] [id number] PCP - General Internal Medicine 10/24/18 Zee, DEBORAH Pantoja.LEVEL VIAL GRINDER [address] [place] [address] Assistant Professor Of Philosophy Internal Medicine 07/23/24 Team Status: Inactive Member Role/Relationship Status Dates [...] February 12, 2025 End: February 12, 2025 Team Status: Inactive Member Role/Relationship Status Dates NIKOLE Tang Attending Provider Active Start: February 13, 2025 End: February 13, 2025 Fadia Barkman , ROTARY 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-C Referring Provider Active Start: February 13, 2025 End: February 13, 2025 Dr. Willie Adams MD Primary Care Provider Active Start: February 13, 2025 End: February 13, 2025 Team Status: Inactive Member Role/Relationship Status Dates Dr. Willie Adams MD Primary Care Provider Active Start: February 14, 2025 End: February 14, 2025 Dr. Willie Adams MD Attending Provider Active Start: February 14, 2025 End: February 14, 2025 Dr. Willie Adams MD Referring Provider Active Start: February 14, 2025 End: February 14, 2025 Team Status: Inactive Member Role/Relationship Status Dates Dr. Willie Adams MD Primary Care Provider Active Start: April 02, 2025 End: April 15, 2025 Dr. Willie Adams MD Attending Provider Active Start: April 02, 2025 End: April 15, 2025 Dr. Willie Adams MD Referring Provider Active Start: April 02, 2025 End: April 15, 2025 Team Status: Active Member Role/Relationship Status Dates Dr. Willie Adams MD Primary care physician Activ e Team Status: Active Member Role/Relationship Status Dates Dr. Willie Adams MD Primary care physician Activ e Start: January 22, 2025 End: January 22, 2025 Dr. Jamari Michael MD Attending physician Active Start: January 22, 2025 End: January 22, 2025 Dr. Gayatri Weinstein MD Referring Provider Active Start: January 22, 2025 End: January 22, 2025 Team Status: Inactive Member Role/Relationship Status Dates LETICIA Ham Attending physician Active Start: January 23, 2025 End: January 23, 2025 LETICIA Ham Referring Provider Active Start: January 23, 2025 End: January 23, 2025 Dr. Willie Adams MD Primary care physician Activ e Start: January 23, 2025 End: January 23, 2025 Team Status: Active Member Role/Relationship Status Dates Dr. Gayatri Weinstein MD Attending physician Active Start: January 30, 2025 Dr. Gayatri Weinstein MD Referring Provider Active Start: January 30, 2025 Dr. Gayatri Weinstein MD Nurse Practitioner Active Start: January 30, 2025 Dr. Willie Adams MD Primary care physician Activ e Start: January 30, 2025 Team Status: Inactive Member Role/Relationship Status Dates Dr. Gayatri Weinstein MD Attending physician Active Start: January 30, 2025 End: January 30, 2025 Dr. Gayatri Weinstein MD Referring Provider Active Start: January 30, 2025 End: January 30, 2025 Dr. Willie Adams MD Primary care physician Activ e Start: January 30, 2025 End: January 30, 2025 Team Status: Inactive Member Role/Relationship Status Dates Dr. Gayatri Weinstein MD Attending physician Active Start: February 12, 2025 End: February 12, 2025 Dr. Willie Adams MD Primary care physician Activ e Start: February 12, 2025 End: February 12, 2025 Dr. Willie Adams MD Referring Provider Active Start: February 12, 2025 End: February 12, 2025 Team Status: Inactive Member Role/Relationship Status Dates NIKOLE Tang Attending physician Active Start: February 13, 2025 End: February 13, 2025 NIKOLE Tang Referring Provider Active Start: February 13, 2025 End: February 13, 2025 Dr. Willie Adams MD Primary care physician Activ e Start: February 13, 2025 End: February 13, 2025 Team Status: Inactive Member Role/Relationship Status Dates Dr. Willie Adams MD Primary care physician Activ e Start: February 14, 2025 End: February 14, 2025 Dr. Willie Adams MD Attending physician Active Start: February 14, 2025 End: February 14, 2025 Dr. Willie Adams MD Referring Provider Active Start: February 14, 2025 End: February 14, 2025 Team Status: Inactive Member Role/Relationship Status Dates Dr. Willie Adams MD Primary care physician Activ e Start: April 02, 2025 End: April 15, 2025 Dr. Willie Adams MD Attending physician Active Start: April 02, 2025 End: April 15, 2025 Dr. Willie Adams MD Referring Provider Active Start: April 02, 2025 End: April 15, 2025 Team Status: Inactive Member Role/Relationship Status Dates Dr. Willie Adams MD Primary care physician Activ e Start: April 26, 2025 End: April 26, 2025 LETICIA Ham Attending physician Active Start: April 26, 2025 End: April 26, 2025 LETICIA Ham Referring Provider Active Start: April 26, 2025 End: April 26, 2025 Team Status: Inactive Member Role/Relationship Status Dates Dr. Willie Adams MD Primary care physician Activ e Start: May 01, 2025 End: May 15, 2025 Dr. Willie Adams MD Attending physician Active Start: May 01, 2025 End: May 15, 2025 Dr. Willie Adams MD Referring Provider Active Start: May 01, 2025 End: May 15, 2025 Team Status: Inactive Member Role/Relationship Status Dates Dr. Willie Adams MD Primary care physician Activ e Start: May 16, 2025 End: May 16, 2025 Dr. Willie Adams MD Attending physician Active Start: May 16, 2025 End: May 16, 2025 Dr. Willie Adams MD Referring Provider Active Start: May 16, 2025 End: May 16, 2025 Team Status: Active Member Role/Relationship Status Dates Dr. Willie Adams MD Primary care physician Activ e Start: May 16, 2025 Dr. Willie Adams MD Attending physician Active Start: May 16, 2025 Dr. Willie Adams MD Referring Provider Active Start: May 16, 2025 Goals (unrecognized section and content) Goals [...] BE BASED ON THE PRIMARY CLINICAL RECORDS. [facility] [employer] [facility]. provides no warranty or guarantee of the accuracy or completeness of information in this document.
== END | disposition home or self-care (01) ==
LOC: MTRAD 16:48
PROVIDERS: PCP Internal Medicine; Referring Provider Physician Assistant Surgical; Visit Provider Physician Assistant Surgical
DX: R06.02 Shortness of breath (principal)
CPT/HCPCS: 71046

== ENCOUNTER → 2025-07-03 | Outpatient (CLI) | payer OTHER, SELFPAY ==
--- NOTE | 2025-07-03 15:50 | RAD_ITS ---
PROCEDURE: CHEST PA AND LATERAL 07/03/2025 REASON FOR EXAM: COUGH TECHNIQUE: Procedure Code: RADCXR Modality: DX Procedure: CHEST PA AND LATERAL FINDINGS: No focal consolidation. No pleural effusion or pneumothorax. Cardiac silhouette is within normal limits. No acute fractures. RAD/Chest PA and Lateral IMPRESSION: No focal consolidations. Reading Location: [id number]
== END | disposition home or self-care (01) ==
LOC: RAD 15:45
PROVIDERS: PCP Internal Medicine; Referring Provider Nurse Practitioner Family; Visit Provider Nurse Practitioner Family
DX: R05.9 Cough, unspecified (principal)
CPT/HCPCS: 71046

== ENCOUNTER 2025-07-19 07:24 | Outpatient (RCR) | payer OTHER, SELFPAY | END 2025-08-15 23:59 | LOC: NS 07:24 | PROVIDERS: PCP Internal Medicine; Referring Provider Internal Medicine; Visit Provider Internal Medicine | DX: Z71.3 Dietary counseling and surveillance (principal); E78.5 Hyperlipidemia, unspecified; E66.811 Obesity, class 1; Z68.32 Body mass index [BMI] 32.0-32.9, adult | CPT/HCPCS: 97803 ==

== ENCOUNTER → 2025-07-30 | Outpatient (CLI) | payer OTHER, SELFPAY ==
[2025-07-30 13:23] LABS: Hematocrit 41.1 % (37-47); Hemoglobin 13.7 g/dL (12.0-15.0); Immature Granulocytes Count 0.020 X10^3/uL (0.0-0.0); Mean Corp Hgb Conc 33.3 g/dL (32-36); Mean Corpuscular Volume 87.3 fL (81-99); Mean Platelet Vol. 10.0 fl (6.2-12.0); NRBC Flagged by Analyzer 0 % (0-5); Platelet Count 251 K/mm3 (150-450); RBC Distribution Width CV 13.2 % (11.6-14.6); RBC Distribution Width SD 42.3 fl (35.1-43.9); Red Blood Count 4.71 M/mm3 (4.2-5.4); White Blood Count 6.4 K/mm3 (4.4-11.0)
[2025-07-30 13:51] LABS: Pro- Brain NATRIURETIC PEPTIDE 58 pg/mL (<=900)
== END | disposition home or self-care (01) ==
LOC: LAB 12:09
PROVIDERS: PCP Internal Medicine; Referring Provider Nurse Practitioner Family; Visit Provider Nurse Practitioner Family
DX: R06.02 Shortness of breath (principal); R05.8 Other specified cough; R53.81 Other malaise; R53.83 Other fatigue
CPT/HCPCS: 36415; 83880; 85025